=== PATIENT | female | born 1960 | race Caucasian/White ===

== ENCOUNTER 2022-08-26 08:51 | Outpatient (OUT) | payer OTHER, SELFPAY ==
[2022-08-26 09:47] LABS: Basophils Absolute Auto 0.1 10^3/uL (0.0-0.1); Basophils Percent Auto 1.6 % (0.2-2.0); Eosinophils Absolute Auto 0.5 10^3/uL (0.0-0.7); Hemoglobin 13.4 g/dL (12.0-16.0); Immature Granulocytes Abs Auto 0.01 10^3/uL (0.00-0.03); Immature Granulocytes Pct Auto 0.1 % (0.0-0.5); Lymphocytes Absolute Auto 2.9 10^3/uL (1.2-3.8); Lymphocytes Percent Auto 43.2 % (20.5-60.0); Mean Corpuscular HGB Conc 32.7 g/dL (29.9-35.2); Mean Corpuscular Hemoglobin 28.6 pg (26.7-34.0); Mean Corpuscular Volume 87.6 fL (81.0-99.0); Mean Platelet Volume 9.5 fL (9.5-13.5); Monocytes Absolute Auto 0.6 10^3/uL (0.3-0.8); Monocytes Percent Auto 8.8 % (1.7-12.0); Neutrophils Absolute Auto 2.6 10^3/uL (1.4-6.5); Neutrophils Percent Auto 38.3 % (43.0-75.0); Platelet Count 255 10^3/uL (150-450); Red Blood Count 4.68 10^6/uL (4.20-5.40); Red Cell Distribution Width 12.5 % (11.0-15.0); White Blood Count 6.7 10^3/uL (4.0-11.0)
[2022-08-26 09:58] LABS: Estimated Average Glucose 180 mg/dL; Glycohemoglobin A1C 7.9 % (4.5-6.2)
[2022-08-26 13:30] LABS: Alanine Aminotransferase 52 U/L (14-59); Albumin Globulin Ratio 1.3; Albumin Level 3.9 g/dL (3.4-5.0); Alkaline Phosphatase 63 U/L (46-116); Anion Gap 12.6; Aspartate Amino Transferase 25 U/L (15-37); BUN Creatinine Ratio 17.4; Bilirubin Total 0.4 mg/dL (0.2-1.0); Calcium 9.5 mg/dL (8.5-10.1); Carbon Dioxide 27.9 mmol/L (21.0-32.0); Chloride 103 mmol/L (98-107); Cholesterol 235 mg/dL (<=200); Estimated GFR (African America >60 (>=60); Estimated GFR (Non-African Ame 51 (>=60); Globulin 3.1 g/dL; Glucose 188 mg/dL (74-106); HDL Cholesterol 51 mg/dL (40-60); Potassium 5.5 mmol/L (3.5-5.1); Sodium 138 mmol/L (136-145); Triglycerides 268 mg/dL (<=150); VLDL CHOLESTEROL 53.6 mg/dL
[2022-08-26 13:31] LABS: Chol HDL Ratio 4.6; Free T3 1.96 pg/mL (2.18-3.98); Thyroid Stimulating Hormone 1.185 uIU/mL (0.358-3.740)
== END 2022-08-26 08:52 ==
PROVIDERS: PCP Family Medicine; Visit Provider Family Medicine
DX: Z00.00 Encounter for general adult medical examination without abnormal findings (principal)
CPT/HCPCS: 36415; 80053; 80061; 82306; 83036; 83540; 84436; 84443; 84481; 85025

== ENCOUNTER 2023-04-20 14:24 | Outpatient (OUT) | payer BC, SELFPAY ==
--- NOTE | 2023-04-20 14:28 | XR_ITS ---
The [address] [address] Patient Name: JOSIE CABRERA MRN: [id number] date: 1960 Sex: F Assigned Patient Location: [facility] Current Patient Location: [facility] Accession/Order Number: [id number] Exam Date: 04/20/2023 14:37 Report Date: 04/20/2023 20:30 At the request of: MARIA R MARSHALL Procedure: XR hip LT 2V w/ pelvis EXAM: XR hip LT 2V w/ pelvis HISTORY: Left Hip Pain M25.552 COMPARISON: Pelvis included on abdominal x-ray 05/17/2022. TECHNIQUE: AP pelvis, AP frog lateral x-ray left hip. FINDINGS: Normal left hip joint space with minor bony prominence acetabulum superolaterally unchanged. Normal right hip joint space on the AP view. Normal mineralization without focal bone lesion. No fracture. Normal appearing SI joints. Scattered phleboliths in the bony pelvis. XR/XR hip LT 2V w/ pelvis IMPRESSION: Negative for fracture or focal bone lesion. Normal symmetric hip joints unchanged. Electronically authenticated by: CAMMIE LUCAS Date: 04/20/2023 20:30
== END 2023-04-20 14:25 | disposition home or self-care (01) ==
LOC: RAD 14:24
PROVIDERS: PCP Family Medicine; Visit Provider Family Medicine
DX: M25.552 Pain in left hip (principal)
CPT/HCPCS: 73502

== ENCOUNTER 2024-01-26 08:05 | Outpatient (OUT) | payer OTHER, SELFPAY ==
--- OUTSIDE RECORDS SUMMARY | 2024-01-26 08:10 | XMS_ITS | CCD ---
Author Organization [facility] Care Team Providers Care Home Sales Consultant Name Role Phone JOANNA ., DR HECK Admitting Unavailable HOY ., DR HECK Attending Unavailable HOY ., DR HECK Primary Care Unavailable HOY ., DR HECK Consulting Unavailable ZIEBER, DR RYAN Hager Consulting Unavailable HOY ., DR HECK Admitting Unavailable HOY ., DR HECK Attending Unavailable HOY ., DR HECK Primary Care Unavailable HOY ., DR HECK Consulting Unavailable HOY ., DR HECK Admitting Unavailable HOY ., DR HECK Attending Unavailable HOY ., DR HECK Primary Care Unavailable HOY ., DR HECK Consulting Unavailable WEST, DR DALLIN Hammond Consulting Unavailable HOY ., DR HECK Admitting Unavailable HOY ., DR HECK Attending Unavailable HOY ., DR HECK Primary Care Unavailable HOY ., DR HECK Consulting Unavailable VIRAJ AUSTIN Consulting Unavailable MARCELLO, REBEKAH Consulting Unavailable HOY ., DR HECK Admitting Unavailable HOY ., DR HECK Attending Unavailable HOY ., DR HECK Primary Care Unavailable HOY ., DR HECK Consulting Unavailable WEST, DR DALLIN Hammond Consulting Unavailable HOY ., DR HECK Admitting Unavailable HOY ., DR HECK Attending Unavailable HOY ., DR HECK Primary Care Unavailable Maria R Garcia MD Primary Care Provider [phone] RICKY, MARIA R M Primary Care Unavailable NEVIN JOSEPH Attending Unavailable HOY, MARIA R M Primary Care Unavailable MELODIE WILDE Referring Unavailable HOY, MARIA R M Primary Care Unavailable HOY, MARIA R M Referring Unavailable MELODIE WILDE Attending Unavailable MELODIE WILDE Referring Unavailable HOY, MARIA R M Primary Care Unavailable MELODIE WILDE Attending Unavailable MELODIE WILDE Referring Unavailable HOY, MARIA R M Primary Care Unavailable MELODIE WILDE Admitting Unavailable MELODIE WILDE Attending Unavailable Allergies Allergy Classification Reported Allergen(s) Allergy Type Date of Onset Reaction(s) Facility (2 sources) levoFLOXacin Drug Allergy 08-26-2013 [facility] Medications Current Medications Medication Drug Class(es) Dates Sig (Normalized) Sig (Original) acetaminophen 325 mg / HYDROcodone bitartrate 5 mg oral tablet (2 sources) Opioid Agonist Start: 06-07-2022 End: 06-14-2022 take 1-2 tablets by mouth every four hours as needed hydroCODone-acetam inophen 5-325 MG tablet Indications: Post-op pain Take 1-2 tablets by mouth every 4 hours as needed for up to 7 days. 25 tablet 0 06/07/2022 Active amitriptyline hydrochloride 10 mg oral tablet (4 sources) Tricyclic Antidepressant Start: 05-26-2022 Amitriptyline 10 MG tablet atorvastatin 20 mg oral tablet (4 sources) HMG-CoA Reductase Inhibitor Start: 04-25-2022 take 1 tablet by mouth every twenty-four hours Atorvastatin 20 MG tablet Take 1 tablet by mouth every evening. 0 04/25/2022 Active 12 hr buPROPion hydrochloride 200 mg extended release oral tablet (4 sources) Aminoketone Start: 03-29-2022 take 1 tablet by mouth once daily in the morning buPROPion 200 MG tablet SR Take 1 tablet by mouth daily every morning. 0 03/29/2022 Active diclofenac sodium 75 mg delayed release oral tablet (4 sources) Nonsteroidal Anti-inflammatory Drug Start: 05-26-2022 diclofenac EC [address] tablet escitalopram 20 mg oral tablet (4 sources) Serotonin Reuptake Inhibitor Start: 04-25-2022 take 1 tablet by mouth once daily in the morning escitalopram 20 MG tablet Take 1 tablet by mouth daily every morning. 0 04/25/2022 Active fluticasone propionate 0.05 mg/actuat metered dose nasal spray (4 sources) Corticosteroid fluticasone 50 MCG/ACT Suspension nasal spray 1 spray by Nasal route daily. 0 Active lamoTRIgine 25 mg oral tablet (4 sources) Mood Stabilizer, Anti-epileptic Agent Start: 03-29-2022 take 2 tablets by mouth at bedtime lamoTRIgine 25 MG tablet Take 2 tablets by mouth at bedtime. 0 03/29/2022 Active lisinopril 20 mg oral tablet (4 sources) Angiotensin Converting Enzyme Inhibitor Start: 03-25-2022 take 1 tablet by mouth once daily in the morning Lisinopril 20 MG tablet TAKE ONE TABLET BY MOUTH DAILY IN THE MORNING FOR BLOOD PRESSURE 0 03/25/2022 Active 24 hr metFORMIN hydrochloride 500 mg extended release oral tablet (4 sources) Biguanide Start: 05-15-2022 take 2 tablets by mouth once daily metFORMIN-XR 500 MG Tab SR 24 HR Take 2 tablets by mouth daily. 0 05/15/2022 Active temazepam 30 mg oral capsule (4 sources) Benzodiazepine Start: 05-04-2022 take 1 capsule by mouth at bedtime temazepam 30 MG capsule Take 1 capsule by mouth at bedtime. 0 05/04/2022 Active traZODone hydrochloride 100 mg oral tablet (4 sources) Serotonin Reuptake Inhibitor take 1 tablet by mouth once daily traZODone 100 MG tablet Take 1 tablet by mouth Every night. 0 Active Completed/Discontinued Medications Medication Drug Class(es) Dates Sig (Normalized) Sig (Original) 2 ml gentamicin 40 mg/ml injection (1 source) Start: 06-08-2022 End: 06-08-2022 Gentamicin (GARAMYCIN) injection lidocaine 1%/ epinephrine 1:100,000 with sodium bicarbonate 8.4% (10 mL Prepared by Pharmacy) (1 source) Start: 06-08-2022 End: 06-08-2022 lidocaine 1%/ epinephrine 1:100,000 with sodium bicarbonate 8.4% (10 mL Prepared by Pharmacy) lidocaine 1%/epinephrine 1:100,000 with sodium bicarbonate 8.4% (3mL Prepared by Pharmacy) (1 source) Start: 06-08-2022 End: 06-08-2022 lidocaine 1%/epinephrine 1:100,000 with sodium bicarbonate 8.4% (3mL Prepared by Pharmacy) sodium chloride 0.154 meq/ml irrigation solution (1 source) Start: 06-08-2022 End: 06-08-2022 Sodium chloride 0.9 % irrigation Problems Problem Classification Problem Date Documented Date Episodic/Chronic Abdominal hernia (1 source) Diaphragmatic hernia without obstruction or gangrene; 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: [DIAPH HERNIA W/O OBST/GANGRENE] Onset: 05-24-2022 Episodic Acute bronchitis (4 sources) Acute bronchitis, unspecified; 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: [ACUTE BRONCHITIS UNSPECIFIED] Onset: 05-17-2022 Episodic Asthma (1 source) Unspecified asthma with (acute) exacerbation; 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: [UNS ASTHMA W/ACUTE EXACERBATION] Onset: 05-24-2022 Chronic Cardiac dysrhythmias (1 source) Tachycardia, unspecified; 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: [TACHYCARDIA UNSPECIFIED] Onset: 05-24-2022 Episodic Diabetes mellitus with complications (1 source) Type 2 diabetes mellitus with hyperglycemia; 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: [TYPE 2 DM W/HYPERGLYCEMIA] Onset: 05-24-2022 Chronic E Codes: Adverse effects of medical drugs (1 source) Adverse effect of glucocorticoids and synthetic analogues, initial encounter; 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: [ADVRS EFF GLUCOCORT SYN ANALOG INIT] Onset: 05-24-2022 Episodic Essential hypertension (1 source) Essential (primary) hypertension; 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: [ESSENTIAL PRIMARY HYPERTENSION] Onset: 05-24-2022 Chronic Fluid and electrolyte disorders (1 source) Dehydration; 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: [DEHYDRATION] Onset: 05-24-2022 Episodic Nonmalignant breast conditions (1 source) Diffuse cystic mastopathy of right breast; 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: [DIFFUSE CYSTIC MASTOPATHY RT BREAST] Onset: 08-04-2021 Chronic Nonmalignant breast conditions (10 sources) Unspecified lump in the right breast, unspecified quadrant; 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: [Unspecified lump in the right breast, upper inner quadrant] Onset: 07-22-2021 Episodic Other aftercare (1 source) custodial (current) use of aspirin; 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: [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] Onset: 05-24-2022 Episodic Other aftercare (1 source) custodial (current) use of oral hypoglycemic drugs; 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: [SALES AND MERCHANDISING ASSOCIATE USE ORAL HYPOGLYCEMIC DX] Onset: 05-24-2022 Episodic Other lower respiratory disease (1 source) Hypoxemia; 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: [HYPOXEMIA] Onset: 05-24-2022 Episodic Other lower respiratory disease (1 source) Shortness of breath; 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: [SHORTNESS OF BREATH] Onset: 05-24-2022 Episodic Other nervous system disorders (1 source) Postoperative pain ; 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: [Other acute postprocedural pain] Episodic Other nervous system disorders (2 sources) Other acute postprocedural pain; 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: [Other acute postprocedural pain] Onset: 06-08-2022 Episodic Other skin disorders (1 source) Lump on finger; 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: [Localized swelling, mass and lump, right upper limb] Episodic Other skin disorders (2 sources) Localized swelling, mass and lump, right upper limb; 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: [Localized swelling, mass and lump, right upper limb] Onset: 05-30-2022 Episodic Residual codes; unclassified (1 source) Sleep apnea, unspecified; 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: [SLEEP APNEA UNSPECIFIED] Onset: 05-24-2022 Chronic Residual codes; unclassified (2 sources) Other specified postprocedural states; 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: [Other specified postprocedural states] Onset: 06-22-2022 Episodic Unclassified (1 source) CONTACT W/AND (SUSP) EXPOS COVID-19; 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: [CONTACT W/AND (SUSP) EXPOS COVID-19] Onset: 05-24-2022 Unclassified (1 source) Unspecified lump in the right breast, overlapping quadrants; 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: [UNS LUMP RT BREAST OVRLPNG QUADRNTS] Onset: 03-08-2022 Results Test Name Value Interpretation Reference Range Facil ity CBC AUTO DIFFon 05-19-2022 BASO # 0.0 103/ul Normal 0.0-0.1 [facility] Comment on above: Performed By: #### P OCGLUC #### [facility] [address] [address] [address] Nan Jeffers Basophils/100 WBC (Bld) 0.2 % Normal 0.2-2.0 [facility] Comment on above: Performed By: #### P OCGLUC #### [facility] [address] [address] [address] Nan Jeffers EO # 0.0 103/ul Normal 0.0-0.7 [facility] Comment on above: Performed By: #### P OCGLUC #### [facility] [address] [address] [address] Nan Jeffers Eosinophils/100 WBC (Bld) 0.0 % Critically low 0.9-7.0 [facility] Comment on above: Performed By: #### P OCGLUC #### [facility] [address] [address] [address] Nan Jeffers Erythrocyte distribution width (RBC) [Ratio] 12.9 % Normal 11.0-15.0 [facility] Comment on above: Performed By: #### P OCGLUC #### [facility] [address] [address] [address] Nan Jeffers Hematocrit (Bld) [Volume fraction] 33.1 % Critically low 36.0-48.0 [facility] Comment on above: Performed By: #### P OCGLUC #### [facility] [address] [address] [address] Nan Jeffers Hemoglobin (Bld) [Mass/Vol] 10.8 g/dL Critically low 12.0-16.0 [facility] Comment on above: Performed By: #### P OCGLUC #### [facility] [address] [address] [address] Nan Jeffers IG # 0.22 10e3/ul Critically high 0.00-0.03 [facility] Comment on above: Performed By: #### P OCGLUC #### [facility] [address] [address] [address] Nan Jeffers IG % 1.6 % Critically high 0.0-0.5 [facility] Comment on above: Performed By: #### P OCGLUC #### [facility] [address] [address] [address] Nan Jeffers LYMPH # 2.1 103/ul Normal 1.2-3.8 [facility] Comment on above: Performed By: #### P OCGLUC #### [facility] [address] [address] [address] Nan Jeffers Lymphocytes/100 WBC (Bld) 15.3 % Critically low 20.5-60.0 [facility] Comment on above: Performed By: #### P OCGLUC #### [facility] [address] [address] [address] Nan Jeffers MANUAL DIFF REQ NO Normal [facility] Comment on above: Performed By: #### P OCGLUC #### [facility] [address] [place] [address] Dr. Nan Jeffers MCH (RBC) [Entitic mass] 28.1 pg Normal 26.7-34.0 [facility] Comment on above: Performed By: #### P OCGLUC #### [facility] [address] [address] [address] Nan Jeffers MCHC (RBC) [Mass/Vol] 32.6 g/dL Normal 29.9-35.2 [facility] Comment on above: Performed By: #### P OCGLUC #### [facility] [address] [address] [address] Nan Jeffers MCV (RBC) [Entitic vol] 86.0 fL Normal 81.0-99.0 [facility] Comment on above: Performed By: #### P OCGLUC #### [facility] [address] [address] [address] Nan Jeffers MONO # 1.2 103/ul Critically high 0.3-0.8 [facility] Comment on above: Performed By: #### P OCGLUC #### [facility] [address] [place] [address] Dr. Nan Jeffers Monocytes/100 WBC (Bld) 8.8 % Normal 1.7-12.0 [facility] Comment on above: Performed By: #### P OCGLUC #### [facility] [address] [address] [address] Nan Jeffers NEUT # 10.2 103/ul Critically high 1.4-6.5 [facility] Comment on above: Performed By: #### P OCGLUC #### [facility] [address] [address] [address] Nan Jeffers Neutrophils/100 WBC (Bld) 74.1 % Normal 43.0-75.0 [facility] Comment on above: Performed By: #### P OCGLUC #### [facility] [address] [address] [address] Nan Jeffers Platelet mean volume (Bld) [Entitic vol] 9.6 fL Normal 9.5-13.5 [facility] Comment on above: Performed By: #### P OCGLUC #### [facility] [address] [address] [address] Nan Jeffers PLT 254 103/ul Normal 150-450 [facility] Comment on above: Performed By: #### P OCGLUC #### [facility] [address] [address] [address] Nan Jeffers RBC 3.85 106/ul Critically low 4.20-5.40 [facility] Comment on above: Performed By: #### P OCGLUC #### [facility] [address] [address] [address] Nan Jeffers WBC 13.8 103/ul Critically high 4.0-11.0 [facility] Comment on above: Performed By: #### P OCGLUC #### [facility] [address] [address] [address] Nan Jeffers POINT OF CARE GLUCOSEon Glucose [Mass/Vol] 317 mg/dL Critically high 74-106 [facility] Comment on above: Performed By: #### P OCGLUC #### [facility] [address] [address] [address] Nan Jeffers Glucose [Mass/Vol] 338 mg/dL Critically high 74-106 [facility] Comment on above: Performed By: #### P OCGLUC #### [facility] [address] [address] [address] Nan Jeffers PROF 14(COMP METB)on 023 Albumin [Mass/Vol] 3.2 g/dL Critically low 3.4-5.0 [facility] Comment on above: Performed By: #### P OCGLUC #### [facility] [address] [address] [address] Nan Jeffers Albumin/Globulin [Mass ratio] 1.3 {ratio} Normal [facility] Comment on above: Performed By: #### P OCGLUC #### [facility] [address] [address] [address] Nan Jeffers ALP [Catalytic activity/Vol] 56 U/L Normal 46-116 [facility] Comment on above: Performed By: #### P OCGLUC #### [facility] [address] [address] [address] Nan Jeffers ALT [Catalytic activity/Vol] 32 U/L Normal 14-59 [facility] Comment on above: Performed By: #### P OCGLUC #### [facility] [address] [address] [address] Nan Jeffers Anion gap [Moles/Vol] 14.9 mmol/L Normal [facility] Comment on above: Performed By: #### P OCGLUC #### [facility] [address] [address] [address] Nan Jeffers AST [Catalytic activity/Vol] 26 U/L Normal 15-37 [facility] Comment on above: Performed By: #### P OCGLUC #### [facility] [address] [address] [address] Nan Jeffers Bilirubin [Mass/Vol] 0.2 mg/dL Normal 0.2-1.0 [facility] Comment on above: Performed By: #### P OCGLUC #### [facility] [address] [address] [address] Nan Jeffers Calcium [Mass/Vol] 8.9 mg/dL Normal 8.5-10.1 [facility] Comment on above: Performed By: #### P OCGLUC #### [facility] [address] [address] [address] Nan Jeffers Chloride [Moles/Vol] 103 mmol/L Normal 98-107 [facility] Comment on above: Performed By: #### P OCGLUC #### [facility] [address] [address] [address] Nan Jeffers CO2 [Moles/Vol] 24.0 mmol/L Normal 21.0-32.0 [facility] Comment on above: Performed By: #### P OCGLUC #### [facility] [address] [address] [address] Nan Jeffers Creatinine [Mass/Vol] 0.84 mg/dL Normal 0.55-1.02 [facility] Comment on above: Performed By: #### P OCGLUC #### [facility] [address] [address] [address] Nan Jeffers EGFR-AF DJIBOUTIAN >60 Normal >=60 [facility] Comment on above: Performed By: #### P OCGLUC #### [facility] [address] [address] [address] Nan Jeffers EGFR-NON AF DJIBOUTIAN >60 Normal >=60 [facility] Comment on above: Performed By: #### P OCGLUC #### [facility] [address] [address] [address] Nan Jeffers Globulin (S) [Mass/Vol] 2.4 g/dL Normal [facility] Comment on above: Performed By: #### P OCGLUC #### [facility] [address] [address] [address] Nan Jeffers Glucose [Mass/Vol] 291 mg/dL Critically high 74-106 [facility] Comment on above: Performed By: #### P OCGLUC #### [facility] [address] [address] [address] Nan Jeffers Potassium [Moles/Vol] 3.9 mmol/L Normal 3.5-5.1 [facility] Comment on above: Performed By: #### P OCGLUC #### [facility] [address] [address] [address] Nan Jeffers Protein [Mass/Vol] 5.6 g/dL Critically low 6.4-8.2 [facility] Comment on above: Performed By: #### P OCGLUC #### [facility] [address] [address] [address] Nan Jeffers Sodium [Moles/Vol] 138 mmol/L Normal 136-145 [facility] Comment on above: Performed By: #### P OCGLUC #### [facility] [address] [address] [address] Nan Jeffers Urea nitrogen [Mass/Vol] 18.0 mg/dL Normal 7.0-18.0 [facility] Comment on above: Performed By: #### P OCGLUC #### [facility] [address] [address] [address] Nan Jeffers Urea nitrogen/Creatinine [Mass ratio] 21.4 mg/mg Normal [facility] Comment on above: Performed By: #### P OCGLUC #### [facility] [address] [address] [address] Nan Jeffers CBC AUTO DIFFon 05-18-2022 BASO # 0.0 103/ul Normal 0.0-0.1 [facility] Comment on above: Performed By: #### C BC #### [facility] [address] [address] [address] Nan Jeffers Basophils/100 WBC (Bld) 0.3 % Normal 0.2-2.0 [facility] Comment on above: Performed By: #### C BC #### [facility] [address] [place] [address] Dr. Nan Jeffers EO # 0.0 103/ul Normal 0.0-0.7 [facility] Comment on above: Performed By: #### C BC #### [facility] [address] [place] [address] Dr. Nan Jeffers Eosinophils/100 WBC (Bld) 0.0 % Critically low 0.9-7.0 [facility] Comment on above: Performed By: #### C BC #### [facility] [address] [place] [address] Dr. Nan Jeffers Erythrocyte distribution width (RBC) [Ratio] 12.4 % Normal 11.0-15.0 [facility] Comment on above: Performed By: #### C BC #### [facility] [address] [place] [address] Dr. Nan Jeffers Hematocrit (Bld) [Volume fraction] 34.8 % Critically low 36.0-48.0 [facility] Comment on above: Performed By: #### C BC #### [facility] [address] [place] [address] Dr. Nan Jeffers Hemoglobin (Bld) [Mass/Vol] 11.3 g/dL Critically low 12.0-16.0 [facility] Comment on above: Performed By: #### C BC #### [facility] [address] [place] [address] Dr. Nan Jeffers IG # 0.08 10e3/ul Critically high 0.00-0.03 [facility] Comment on above: Performed By: #### C BC #### [facility] [address] [place] [address] Dr. Nan Jeffers IG % 1.1 % Critically high 0.0-0.5 [facility] Comment on above: Performed By: #### C BC #### [facility] [address] [place] [address] Dr. Nan Jeffers LYMPH # 1.5 103/ul Normal 1.2-3.8 [facility] Comment on above: Performed By: #### C BC #### [facility] [address] [place] [address] Dr. Nan Jeffers Lymphocytes/100 WBC (Bld) 19.9 % Critically low 20.5-60.0 [facility] Comment on above: Performed By: #### C BC #### [facility] [address] [place] [address] Dr. Nan Jeffers MANUAL DIFF REQ NO Normal [facility] Comment on above: Performed By: #### C BC #### [facility] [address] [place] [address] Dr. Nan Jeffers MCH (RBC) [Entitic mass] 28.2 pg Normal 26.7-34.0 [facility] Comment on above: Performed By: #### C BC #### [facility] [address] [place] [address] Dr. Nan Jeffers MCHC (RBC) [Mass/Vol] 32.5 g/dL Normal 29.9-35.2 [facility] Comment on above: Performed By: #### C BC #### [facility] [address] [place] [address] Dr. Nan Jeffers MCV (RBC) [Entitic vol] 86.8 fL Normal 81.0-99.0 [facility] Comment on above: Performed By: #### C BC #### [facility] [address] [place] [address] Dr. Nan Jeffers MONO # 0.2 103/ul Critically low 0.3-0.8 [facility] Comment on above: Performed By: #### C BC #### [facility] [address] [place] [address] Dr. Nan Jeffers Monocytes/100 WBC (Bld) 3.2 % Normal 1.7-12.0 [facility] Comment on above: Performed By: #### C BC #### [facility] [address] [place] [address] Dr. Nan Jeffers NEUT # 5.6 103/ul Normal 1.4-6.5 [facility] Comment on above: Performed By: #### C BC #### [facility] [address] [place] [address] Dr. Nan Jeffers Neutrophils/100 WBC (Bld) 75.5 % Critically high 43.0-75.0 [facility] Comment on above: Performed By: #### C BC #### [facility] [address] [place] [address] Dr. Nan Jeffers Platelet mean volume (Bld) [Entitic vol] 9.7 fL Normal 9.5-13.5 [facility] Comment on above: Performed By: #### C BC #### [facility] [address] [place] [address] Dr. Nan Jeffers PLT 224 103/ul Normal 150-450 [facility] Comment on above: Performed By: #### C BC #### [facility] [address] [place] [address] Dr. Nan Jeffers RBC 4.01 106/ul Critically low 4.20-5.[address] [facility] Comment on above: Performed By: #### C BC #### [facility] [address] [place] [address] Dr. Nan Jeffers WBC 7.4 103/ul Normal 4.0-11.0 [facility] Comment on above: Performed By: #### C BC #### [facility] [address] [place], [place] [id number] Dr. Nan Jeffers CT CHEST WO CONon 05-18-2022 CT CHEST WO CON EXAMINATION: CT CHES T WO CON 05/18/2022 COMPARISON STUDY: Acute abdominal series 05/17/2022. HISTORY: SHORTNESS OF BREATH TECHNIQUE: 3 mm sections were obtained from the thoracic inlet through the diaphragm without the use of contrast. Coronal and sagittal reconstructed images were obtained. Dose reduction techniques were achieved by using automated exposure control and/or adjustment of mA and/or kV according to patient size and/or use of iterative reconstruction technique. FINDINGS: Background diffuse hepatic steatosis suggested. The gallbladder is surgically absent. Upper abdominal contents demonstrate no acute abnormality. Mild atherosclerotic change of the aorta and its branches are noted without aneurysm. Coronary artery calcifications are faintly suggested. Heart size is normal. No significantly enlarged adenopathy noted. Mild chronic symmetric biapical fibrotic changes are present. Minor bibasilar atelectatic/fibrotic type changes are also noted. No edema, failure, pneumonia, pneumothorax, or suspicious appearing mass. There is subtle peripherally located tree-in-bud opacities involving the posterior lateral aspect of the right lower lobe, images 66-69 of series 4. Early mild lower lobe cylindrical bronchiectatic type changes involving the lower lobes may be present. Multilevel cervical, thoracic, and upper lumbar spondylitic/facet arthritic changes noted. No acute osseous abnormality. Remote trauma to the manubrium suggested on the sagittal images. IMPRESSION: 1. Peripherally located tree-in-bud opacities posterior laterally involving the right lower lobe may represent infectious/inflammato ry bronchiolitis. Early mild cylindrical bronchiectatic changes involving the lower lobes are noted. 2. Minor biapical and bibasilar atelectatic/fibrotic type changes without overt edema, failure, or pneumonia. 3. Hepatic steatosis. Cholecystectomy. Electronically authenticated by: REBEKAH HAMILTONH Date: 2022-05-18 11:21 Normal [facility] POINT OF CARE GLUCOSEon 03-0 Glucose [Mass/Vol] 206 mg/dL Critically high 74-106 [facility] Comment on above: Performed By: #### P OCGLUC #### [facility] [address], [place] [address] Dr. Nan Jeffers Glucose [Mass/Vol] 262 mg/dL Critically high 74-106 [facility] Comment on above: Performed By: #### P OCGLUC #### [facility] [address] [place], [place] [address] Dr. Nan Jeffers Glucose [Mass/Vol] 383 mg/dL Critically high 74-106 [facility] Comment on above: Performed By: #### P OCGLUC #### [facility] [address] [place] [address] [address] Nan Jeffers PROF 14(COMP METB)on 023 Albumin [Mass/Vol] 3.4 g/dL Normal 3.4-5.0 [facility] Comment on above: Performed By: #### C MP #### [facility] [address] [place] [address] Dr. Nan Jeffers Albumin/Globulin [Mass ratio] 1.2 {ratio} Normal [facility] Comment on above: Performed By: #### C MP #### [facility] [address] [place] [address] Dr. Nan Jeffers ALP [Catalytic activity/Vol] 66 U/L Normal 46-116 [facility] Comment on above: Performed By: #### C MP #### [facility] [address] [place] [address] Dr. Nan Jeffers ALT [Catalytic activity/Vol] 34 U/L Normal 14-59 [facility] Comment on above: Performed By: #### C MP #### [facility] [address] [place] [address] Dr. Nan Jeffers Anion gap [Moles/Vol] 17.8 mmol/L Normal [facility] Comment on above: Performed By: #### C MP #### [facility] [address] [place] [address] Dr. Nan Jeffers AST [Catalytic activity/Vol] 19 U/L Normal 15-37 [facility] Comment on above: Performed By: #### C MP #### [facility] [address] [place] [address] Dr. Nan Jeffers Bilirubin [Mass/Vol] 0.2 mg/dL Normal 0.2-1.0 [facility] Comment on above: Performed By: #### C MP #### [facility] [address] [place] [address] Dr. Nan Jeffers Calcium [Mass/Vol] 8.9 mg/dL Normal 8.5-10.[address] [facility] Comment on above: Performed By: #### C MP #### [facility] [address] [place] [address] [address] Nan Jeffers Chloride [Moles/Vol] 101 mmol/L Normal 98-107 [facility] Comment on above: Performed By: #### C MP #### [facility] [address] [place] [address] [address] Nan Jeffers CO2 [Moles/Vol] 22.1 mmol/L Normal 21.0-32.0 [facility] Comment on above: Performed By: #### C MP #### [facility] [address] [place] [address] [address] Nan Jeffers Creatinine [Mass/Vol] 1.26 mg/dL Critically high 0.55-1.02 [facility] Comment on above: Performed By: #### C MP #### [facility] [address] [place] [address] [address] Nan Jeffers EGFR-AF DJIBOUTIAN 52 mL/min/1.73m2 Critically low >=60 [facility] Comment on above: Performed By: #### C MP #### [facility] [address] [place] [address] [address] Nna Jeffers EGFR-NON AF DJIBOUTIAN 43 mL/min/1.73m2 Critically low >=60 [facility] Comment on above: Performed By: #### C MP #### [facility] [address] [place] [address] [address] Nna Jeffers Globulin (S) [Mass/Vol] 2.9 g/dL Normal [facility] Comment on above: Performed By: #### C MP #### [facility] [address] [place] [address] [address] Nan Jeffers Glucose [Mass/Vol] 385 mg/dL Critically high 74-106 [facility] Comment on above: Performed By: #### C MP #### [facility] [address] [place] [address] [address] Nan Jeffers Potassium [Moles/Vol] 3.9 mmol/L Normal 3.5-5.1 [facility] Comment on above: Performed By: #### C MP #### [facility] [address] [place] [address] [address] Nan Jeffers Protein [Mass/Vol] 6.3 g/dL Critically low 6.4-8.2 [facility] Comment on above: Performed By: #### C MP #### [facility] [address] [address] [address] Nan Jeffers Sodium [Moles/Vol] 137 mmol/L Normal 136-145 [facility] Comment on above: Performed By: #### C MP #### [facility] [address] [place] [address] Dr. Nan Jeffers Urea nitrogen [Mass/Vol] 14.0 mg/dL Normal 7.0-18.0 [facility] Comment on above: Performed By: #### C MP #### [facility] [address] [place] [address] Dr. Nan Jeffers Urea nitrogen/Creatinine [Mass ratio] 11.1 mg/mg Normal [facility] Comment on above: Performed By: #### C MP #### [facility] [address] [place] [address] Dr. Nan Jeffers BNPon 05-17-2022 Natriuretic peptide B (Bld) [Mass/Vol] 58.0 pg/mL Normal <=900.0 [facility] Comment on above: Performed By: #### P OCGLUC #### [facility] [address] [place] [address] Dr. Nan Jeffers CARDIAC CHIN ADMITon 023 CK [Catalytic activity/Vol] 244 U/L Critically high 26-192 [facility] Comment on above: Performed By: #### P OCGLUC #### [facility] [address] [place] [address] Dr. Nan Jeffers CK.MB [Mass/Vol] 0.96 ng/mL Normal <=3.60 [facility] Comment on above: Performed By: #### P OCGLUC #### [facility] [address] [place] [address] Dr. Nan Jeffers HSTROP 4.1 pg/mL Normal 4.0-51.3 [facility] Comment on above: Result Comment: CUT- OFF POINTS HAVE BEEN ESTABLISHED BASED ON THE FOURTH UNIVERSAL DEFINITIONS OF MYOCARDIAL INFARCTION. THE UPPER REFERENCE LIMIT (URL) OF TROPONIN, DEFINED THE 99TH PERCENTILE OF cTnI DISTRIBUTION IN A REFERENCE POPULATION, HAS BEEN CONFIRMED THE DECISION THRESHOLD FOR [place] DIAGNOSIS. Performed By: #### P OCGLUC #### [facility] [address] [place] [address] [address] Nan Jeffers LACIE 137 ng/mL Critically high 9-[address] [facility] Comment on above: Performed By: #### P OCGLUC #### [facility] [address] [place] [address] [address] Nan Jeffers CULTURE URINEon 05-17-2022 CULTURE URINE Culture Observations : NO GROWTH. Normal [facility] Comment on above: Performed By: #### P OCGLUC #### [facility] [address] [place] [address] Dr. Nan Jeffers Covid-19 PCR (CVDTB)on SARS-CoV-2 (COVID-19) RNA JACQUES+probe Ql (Unsp spec) Not detected Normal NOT DETECTED [facility] Comment on above: Result Comment: When diagnostic testing is negative, the possibility of a false negative should be considered in the context of a patient's recent exposures and the presence of clinical signs and symptoms consistent with SARS-CoV-2. This test is not yet approved or cleared by the [place] FDA. When there are no FDA-approved or cleared tests available, and other criteria are met, FDA can make tests available under an emergency access mechanism called an Emergency Use Authorization (EUA). The EUA for this test is supported by the Intellectual Property Lawyer of Health and Human Service's declaration that circumstances exist to justify the emergency use of in vitro diagnostics for the detection and/or diagnosis of the virus that causes COVID-19. This EUA will remain in effect for the duration of the COVID-19 declaration justifying emergency of IVDs, unless it is terminated or revoked by the FDA (after which the test may no longer be used). Performed By: #### P OCGLUC #### [facility] [address] [place] [address] Dr. Nan Jeffers D-DIMERon 05-17-2022 D-DIMER 0.60 mg/L FEU Critically high <=0.59 [facility] Comment on above: Performed By: #### D DIM #### [facility] [address] [place] [address] Dr. Nan Jeffers D-DIMER COMMENTS SEE BELOW Normal [facility] Comment on above: Result Comment: Incr eases in D-Dimer concentration observed with thromboembolic events can be variable due to localization, size, and age of the thrombus. Therefore, a thromboembolic event cannot be diagnosed with certainty on the basis of the reference range. D-Dimers may also be elevated for a variety of disorders including: advanced age, , coronary disease, cancer, liver disease, infection, inflammation, hematoma, DIC, trauma, post-surgery, diabetes, thrombolytic or anticoagulant therapy, stress, and generalized hospitalization. Performed By: #### D DIM #### [facility] [address] [place] [address] Dr. Nan Jeffers LACTATE/LACTIC ACIDon 2022 Lactate [Moles/Vol] 1.7 mmol/L Normal 0.4-1.9 [facility] Comment on above: Performed By: #### P OCGLUC #### [facility] [address] [place] [address] Dr. Nan Jeffers LIPASEon 05-17-2022 Lipase [Catalytic activity/Vol] 82.0 U/L Normal 73.0-393.0 [facility] Comment on above: Performed By: #### P OCGLUC #### [facility] [address] [place] [address] Dr. Nan Jeffers POINT OF CARE GLUCOSEon Glucose [Mass/Vol] 337 mg/dL Critically high 74-106 [facility] Comment on above: Performed By: #### P OCGLUC #### [facility] [address] [place] [address] Dr. Nan Jeffers Glucose [Mass/Vol] 281 mg/dL Critically high 74-106 [facility] Comment on above: Performed By: #### P OCGLUC #### [facility] [address] [place] [address] Dr. Nan Jeffers PROF 14(COMP METB)on 023 Albumin [Mass/Vol] 3.4 g/dL Normal 3.4-5.0 [facility] Comment on above: Performed By: #### P OCGLUC #### [facility] [address] [place] [address] Dr. Nan Jeffers Albumin/Globulin [Mass ratio] 1.1 {ratio} Normal [facility] Comment on above: Performed By: #### P OCGLUC #### [facility] [address] [place] [address] [address] Nan Jeffers ALP [Catalytic activity/Vol] 64 U/L Normal 46-116 [facility] Comment on above: Performed By: #### P OCGLUC #### [facility] [address] [place] [address] Dr. Nan Jeffers ALT [Catalytic activity/Vol] 40 U/L Normal 14-59 [facility] Comment on above: Performed By: #### P OCGLUC #### [facility] [address] [place] [address] Dr. Nan Jeffers Anion gap [Moles/Vol] 10.1 mmol/L Normal [facility] Comment on above: Performed By: #### P OCGLUC #### [facility] [address] [place] [address] Dr. Nan Jeffers AST [Catalytic activity/Vol] 20 U/L Normal 15-37 [facility] Comment on above: Performed By: #### P OCGLUC #### [facility] [address] [place] [address] Dr. Nan Jeffers Bilirubin [Mass/Vol] 0.4 mg/dL Normal 0.2-1.0 [facility] Comment on above: Performed By: #### P OCGLUC #### [facility] [address] [place] [address] Dr. Nan Jeffers Calcium [Mass/Vol] 9.2 mg/dL Normal 8.5-10.[address] [facility] Comment on above: Performed By: #### P OCGLUC #### [facility] [address] [place] [address] Dr. Nan Jeffers Chloride [Moles/Vol] 104 mmol/L Normal 98-107 [facility] Comment on above: Performed By: #### P OCGLUC #### [facility] [address] [place] [address] [address] Nan Jeffers CO2 [Moles/Vol] 31.8 mmol/L Normal 21.0-32.0 [facility] Comment on above: Performed By: #### P OCGLUC #### [facility] [address] [place] [address] [address] Nan Jeffers Creatinine [Mass/Vol] 0.96 mg/dL Normal 0.55-1.02 [facility] Comment on above: Performed By: #### P OCGLUC #### [facility] [address] [place] [address] [address] Nan Jeffers EGFR-AF DJIBOUTIAN >60 Normal >=60 [facility] Comment on above: Performed By: #### P OCGLUC #### [facility] [address] [place] [address] [address] Nan Jeffers EGFR-NON AF DJIBOUTIAN 59 mL/min/1.73m2 Critically low >=60 [facility] Comment on above: Performed By: #### P OCGLUC #### [facility] [address] [place] [address] [address] Nan Jeffers Globulin (S) [Mass/Vol] 3.1 g/dL Normal [facility] Comment on above: Performed By: #### P OCGLUC #### [facility] [address] [place] [address] [address] Nan Jeffers Glucose [Mass/Vol] 189 mg/dL Critically high 74-106 [facility] Comment on above: Performed By: #### P OCGLUC #### [facility] [address] [place] [address] [address] Nan Jeffers Potassium [Moles/Vol] 4.9 mmol/L Normal 3.5-5.1 [facility] Comment on above: Performed By: #### P OCGLUC #### [facility] [address] [place] [address] [address] aNn Jeffers Protein [Mass/Vol] 6.5 g/dL Normal 6.4-8.2 [facility] Comment on above: Performed By: #### P OCGLUC #### [facility] [address] [place] [address] Dr. Nan Jeffers Sodium [Moles/Vol] 141 mmol/L Normal 136-145 [facility] Comment on above: Performed By: #### P OCGLUC #### [facility] [address] [place] [address] Dr. Nan Jeffers Urea nitrogen [Mass/Vol] 12.0 mg/dL Normal 7.0-18.0 [facility] Comment on above: Performed By: #### P OCGLUC #### [facility] [address] [place] [address] Dr. Nan Jeffers Urea nitrogen/Creatinine [Mass ratio] 12.5 mg/mg Normal [facility] Comment on above: Performed By: #### P OCGLUC #### [facility] [address] [place] [address] Dr. Nan Jeffers UA RANDOM W/MICROSCOPICon BACTERIA NONE SEEN Normal NONE SEEN [facility] Comment on above: Performed By: #### P OCGLUC #### [facility] [address] [place] [address] Dr. Nan Jeffers Bilirubin Ql (U) Negative Normal NEGATIVE [facility] Comment on above: Performed By: #### P OCGLUC #### [facility] [address] [place] [address] Dr. Nan Jeffers CAST NONE SEEN Normal NONE SEEN [facility] Comment on above: Performed By: #### P OCGLUC #### [facility] [address] [place] [address] Dr. Nan Jeffers Clarity (U) CLEAR Normal CLEAR [facility] Comment on above: Performed By: #### P OCGLUC #### [facility] [address] [place] [address] Dr. Nan Jeffers Color (U) LT. YELLOW Normal YELLOW [facility] Comment on above: Performed By: #### P OCGLUC #### [facility] [address] [place] [address] Dr. Nan Jeffers Crystals LM Nom (Urine sed) NONE SEEN Normal NONE SEEN [facility] Comment on above: Performed By: #### P OCGLUC #### [facility] [address] [place] [address] [address] Nan Jeffers Epithelial cells LM Ql (Urine sed) RARE Normal NONE SEEN /RARE [facility] Comment on above: Performed By: #### P OCGLUC #### [facility] [address] [place] [address] [address] Nan Jeffers Glucose Ql (U) 500 mg/dl Abnormal NEGATIVE [facility] Comment on above: Performed By: #### P OCGLUC #### [facility] [address] [place] [address] [address] Nan Jeffers Hemoglobin Ql (U) Negative Normal NEGATIVE [facility] Comment on above: Performed By: #### P OCGLUC #### [facility] [address] [place] [address] Dr. Nan Jeffers Ketones Ql (U) Negative Normal NEGATIVE [facility] Comment on above: Performed By: #### P OCGLUC #### [facility] [address] [place] [address] [address] Nan Jeffers LEUKOCYTES Negative Normal NEGATIVE [facility] Comment on above: Performed By: #### P OCGLUC #### [facility] [address] [place] [address] [address] Nan Jeffers MUCOUS NONE SEEN Normal NONE SEEN [facility] Comment on above: Performed By: #### P OCGLUC #### [facility] [address] [place] [address] [address] Nan Jeffers Nitrite Ql (U) Negative Normal NEGATIVE [facility] Comment on above: Performed By: #### P OCGLUC #### [facility] [address] [place] [address] [address] Nan Jeffers pH (U) 5.5 [pH] Normal 5-9 [facility] Comment on above: Performed By: #### P OCGLUC #### [facility] [address] [place] [address] [address] Nan Jeffers RBC 0-2 Normal 0-2 [facility] Comment on above: Performed By: #### P OCGLUC #### [facility] [address] [place] [address] [address] Nan Jeffers SPEC GRAVITY <=1.005 Abnormal 1.005-<=1.[address] [facility] Comment on above: Performed By: #### P OCGLUC #### [facility] [address] [place] [address] [address] Nan Jeffers UA PROTEIN Negative Normal NEGATIVE/ TRACE [facility] Comment on above: Performed By: #### P OCGLUC #### [facility] [address] [place] [address] [address] Nan Jeffers Urobilinogen Qn (U) 0.2 {Jenifer'U}/dL Normal 0.2 - 1. 0 [facility] Comment on above: Performed By: #### P OCGLUC #### [facility] [address] [place] [address] Dr. Nan Jeffers WBC NONE SEEN Normal NONE SEEN [facility] Comment on above: Performed By: #### P OCGLUC #### [facility] [address] [place] [address] [address] Nan Jeffers XR ABD FLAT UP_PA Atul 05-17 XR ABD FLAT UP_PA CH EXAM: XR ABD FLAT UP_PA CH HISTORY: CHEST PAIN, UNSPECIFIED COMPARISON: None. TECHNIQUE: PA chest and 2 views of the abdomen. FINDINGS: Atherosclerotic calcification of the thoracic aorta. Cardiac size and pulmonary vascularity are within normal limits. The lungs and the costophrenic angles are clear. Moderate stool burden throughout the colon. No significantly dilated small or large bowel. Prior cholecystectomy. Calcified phleboliths within the pelvis. IMPRESSION: 1. No acute cardiopulmonary disease. 2. No evidence of bowel obstruction, significant ileus, or free intraperitoneal gas. Electronically authenticated by: VIRAJ AUSTIN Date: 2022-05-17 14:45 Normal [facility] Covid-19 PCR (CVDTB)on 04-20 SARS-CoV-2 (COVID-19) RNA JACQUES+probe Ql (Unsp spec) Not detected Normal NOT DETECTED [facility] Comment on above: Result Comment: When diagnostic testing is negative, the possibility of a false negative should be considered in the context of a patient's recent exposures and the presence of clinical signs and symptoms consistent with SARS-CoV-2. This test is not yet approved or cleared by the [place] FDA. When there are no FDA-approved or cleared tests available, and other criteria are met, FDA can make tests available under an emergency access mechanism called an Emergency Use Authorization (EUA). The EUA for this test is supported by the Intellectual Property Lawyer of Health and Human Service's declaration that circumstances exist to justify the emergency use of in vitro diagnostics for the detection and/or diagnosis of the virus that causes COVID-19. This EUA will remain in effect for the duration of the COVID-19 declaration justifying emergency of IVDs, unless it is terminated or revoked by the FDA (after which the test may no longer be used). Performed By: #### C VDTB #### [facility] [address] [place] [address] Dr. Nan Jeffers MG MAMM DX 3D RT CADon 03-03 MG MAMM DX 3D RT CAD Patient: JOSIE VELIZ I. Exam Date: 03/03/2022 : 1960 Gender:F Ordering : DR MARIA R GARCIA . Admission #: [id number] Family : Order #: [id number] CLICK HERE TO VIEW EXAM RADIOLOGY REPORT PROCEDURE: MAMMOGRAM DIAGNOSTIC 3D RIGHT CAD, 03/03/2022, 12:59 ULTRASOUND BREAST RIGHT LIMITED, 03/03/2022, 13:30 COMPARISON: US VAC ASST BX BRST RT W CLIP, 07/29/2021. MAMMO POST BIOPSY RIGHT, 07/29/2021. INDICATIONS: Lump in right breast Calculator Name NCI Breast Cancer Risk Assessment Tool 5 Year Breast Cancer Risk 1.80% Lifetime Breast Cancer Risk 8.00% Personal Breast Cancer No Personal Ovarian Cancer No Treatments None Family Cancers Father with bladder cancer at age 72. LOCATION: [facility] BREAST COMPOSITION: Scattered areas fibroglandular density. FINDINGS: DIAGNOSTIC CATEGORY 2--BENIGN FINDING: RIGHT BREAST: Today's mammogram demonstrates a biopsy marker clip within the lower-inner quadrant and numerous scattered benign-appearing calcifications. Ultrasound demonstrates a grossly stable 6 x 5 x 4 mm hypoechoic geographic shaped lesion within the anterior 3 o'clock position of right breast with adjacent biopsy marker clip. Annual screening mammography is recommended. RECOMMENDATIONS: ROUTINE MAMMOGRAM AND CLINICAL EVALUATION IN 12 MONTHS. PLEASE NOTE: A NORMAL MAMMOGRAM DOES NOT EXCLUDE THE POSSIBILITY OF BREAST CANCER. A CLINICALLY SUSPICIOUS PALPABLE LUMP SHOULD BE BIOPSIED. Dictated by: Ryan Moreira M.D. on 03/03/2022 at 13:55 Approved by: Ryan Moreira M.D. on 03/03/2022 at 14:03 Normal [facility] US BREAST RIGHT LIMITEDon US BREAST RIGHT LIMITED Patient: JOSIE VELIZ I. Exam Date: 03/03/2022 : 1960 Gender:F Ordering : DR MARIA R GARCIA . Admission #: [id number] Family : Order #: [id number] CLICK HERE TO VIEW EXAM RADIOLOGY REPORT PROCEDURE: MAMMOGRAM DIAGNOSTIC 3D RIGHT CAD, 03/03/2022, 12:59 ULTRASOUND BREAST RIGHT LIMITED, 03/03/2022, 13:30 COMPARISON: US VAC ASST BX BRST RT W CLIP, 07/29/2021. MAMMO POST BIOPSY RIGHT, 07/29/2021. INDICATIONS: Lump in right breast Calculator Name NCI Breast Cancer Risk Assessment Tool 5 Year Breast Cancer Risk 1.80% Lifetime Breast Cancer Risk 8.00% Personal Breast Cancer No Personal Ovarian Cancer No Treatments None Family Cancers Father with bladder cancer at age 72. LOCATION: [facility] BREAST COMPOSITION: Scattered areas fibroglandular density. FINDINGS: DIAGNOSTIC CATEGORY 2--BENIGN FINDING: RIGHT BREAST: Today's mammogram demonstrates a biopsy marker clip within the lower-inner quadrant and numerous scattered benign-appearing calcifications. Ultrasound demonstrates a grossly stable 6 x 5 x 4 mm hypoechoic geographic shaped lesion within the anterior 3 o'clock position of right breast with adjacent biopsy marker clip. Annual screening mammography is recommended. RECOMMENDATIONS: ROUTINE MAMMOGRAM AND CLINICAL EVALUATION IN 12 MONTHS. PLEASE NOTE: A NORMAL MAMMOGRAM DOES NOT EXCLUDE THE POSSIBILITY OF BREAST CANCER. A CLINICALLY SUSPICIOUS PALPABLE LUMP SHOULD BE BIOPSIED. Dictated by: Ryan Moreira M.D. on 03/03/2022 at 13:55 Approved by: Ryan Moreira M.D. on 03/03/2022 at 14:03 Normal [facility] US VAC ASST BX BREAST RT W C LIPon 08-05-2021 US VAC ASST BX BREAST RT W CLIP Begin Addendum #1 COLLECTED DATE/TIME: 07/29/2021 09:52 EDT Final Diagnosis Report for [facility] [facility], [place], [place] RIGHT BREAST 3 O'CLOCK MASS; BIOPSY: -BENIGN BREAST PARENCHYMA WITH FIBROCYSTIC CHANGES, DENSE STROMA AND COLUMNAR CELL CHANGE. -NEGATIVE FOR MALIGNANCY. 08/04/[address] Garcia. Verified with Nhung that report was present in office. Original Report EXAMINATION: US VAC ASST BX BREAST RT W CLIP HISTORY: Mammographic mass of right breast COMPARISON: No relevant comparison available. TECHNIQUE: After obtaining informed consent, ultrasound-guided fine needle aspiration was performed in the usual sterile manner. FINDINGS: IMAGING: Ultrasound. BIOPSY NEEDLE: 13-gauge vacuum-assisted core mammotome LOCATION: 3:00 8 mm angular hypoechogenic right breast mass SPECIMEN TYPE: 5 core samples LOCAL ANESTHETIC: 3 cc 1% buffered lidocaine without epinephrine superficial, 6 cc 1% lidocaine with epinephrine deep. COMPLICATIONS: None. OTHER: Negative. PATHOLOGY: Pending. An addendum will be added when results are available. IMPRESSION: 1. Uneventful ultrasound guided vacuum assisted right breast core biopsy 2. Pathology results are pending. Normal [facility] MAMMO POST BIOPSY RIGHTon MAMMO POST BIOPSY RIGHT Patient: JOSIE VELIZ I. Exam Date: 07/29/2021 : 1960 Gender:F Ordering : DR MARIA R GARCIA . Admission #: [id number] Family : Order #: [id number] CLICK HERE TO VIEW EXAM RADIOLOGY REPORT PROCEDURE: MAMMOGRAM POST BIOPSY IMAGES COMPARISON: MG MAMM DIAGNOSTIC 3D TIGRE CAD, 07/22/2021. INDICATIONS: Mammographic mass of right breast BREAST COMPOSITION: FINDINGS: BIOPSY MARKER: A metallic marker has been placed in the targeted location within the lower inner quadrant of the right anterior breast. BREAST FINDINGS: Expected postprocedural changes with subcutaneous air and scattered density Dictated by: Dallin Bunch MD on 07/29/2021 at 10:14 Approved by: Dallin Bunch MD on 07/29/2021 at 10:17 Normal [facility] MAMM DIAGNOSTIC 3D TIGRE CA Don 07-22-2021 MG MAMM DIAGNOSTIC 3D TIGRE CAD Patient: JOSIE VELIZ I. Exam Date: 07/22/2021 : 1960 Gender:F Ordering : DR MARIA R GARCIA . Admission #: [id number] Family : Order #: [id number] CLICK HERE TO VIEW EXAM RADIOLOGY REPORT PROCEDURE: MAMMOGRAM DIAGNOSTIC 3D BILATERAL CAD, 07/22/2021, 12:53 ULTRASOUND BREAST RIGHT LIMITED, 07/22/2021, 13:37 COMPARISON: MG MAMM SCREEN TIGRE W CAD, 05/14/2018. INDICATIONS: Lump in right breast Calculator Name NCI Breast Cancer Risk Assessment Tool 5 Year Breast Cancer Risk 1.50% Lifetime Breast Cancer Risk 6.80% Personal Breast Cancer No Personal Ovarian Cancer No Treatments None Family Cancers Father with bladder cancer at age 72. LOCATION: [facility] BREAST COMPOSITION: Scattered areas fibroglandular density. FINDINGS: DIAGNOSTIC CATEGORY 4--SUSPICIOUS FOR MALIGNANCY. FINDING DOES NOT EXHIBIT CLASSIC FINDINGS OF BREAST CANCER: Scattered benign-appearing nodules are present. Scattered benign-appearing calcifications are present. Scattered benign-appearing lymph nodes are present. RIGHT BREAST: 3.5 cm from the patient's palpable abnormality along the anterior breast, lower inner quadrant is a 1.0 x 0.6 cm nodule stable from the prior exam. Ultrasound demonstrates at the 3 o'clock position corresponding to the patient's palpable abnormality a 1.0 x 0.5 x 0.7 cm angular partially circumscribed heterogeneous hypoechogenic mass with decreased acoustic through transmission. This lesion is indeterminate. Ultrasound core biopsy of this lesion was recommended to the patient LEFT BREAST: No significant suspicious finding. RECOMMENDATIONS: ULTRASOUND-GUIDED CORE BIOPSY: RIGHT BREAST 3 o'clock 1 cm mass PLEASE NOTE: A NORMAL MAMMOGRAM DOES NOT EXCLUDE THE POSSIBILITY OF BREAST CANCER. A CLINICALLY SUSPICIOUS PALPABLE LUMP SHOULD BE BIOPSIED. Dictated by: Dallin Bunch MD on 07/22/2021 at 13:46 Approved by: Dallin Bunch MD on 07/22/2021 at 13:49 Normal [facility] US BREAST RIGHT LIMITEDon US BREAST RIGHT LIMITED Patient: JOSIE VELIZ I. Exam Date: 07/22/2021 : 1960 Gender:F Ordering : DR MARIA R GARCIA . Admission #: [id number] Family : Order #: [id number] CLICK HERE TO VIEW EXAM RADIOLOGY REPORT PROCEDURE: MAMMOGRAM DIAGNOSTIC 3D BILATERAL CAD, 07/22/2021, 12:53 ULTRASOUND BREAST RIGHT LIMITED, 07/22/2021, 13:37 COMPARISON: MG MAMM SCREEN TIGRE W CAD, 05/14/2018. INDICATIONS: Lump in right breast Calculator Name NCI Breast Cancer Risk Assessment Tool 5 Year Breast Cancer Risk 1.50% Lifetime Breast Cancer Risk 6.80% Personal Breast Cancer No Personal Ovarian Cancer No Treatments None Family Cancers Father with bladder cancer at age 72. LOCATION: [facility] BREAST COMPOSITION: Scattered areas fibroglandular density. FINDINGS: DIAGNOSTIC CATEGORY 4--SUSPICIOUS FOR MALIGNANCY. FINDING DOES NOT EXHIBIT CLASSIC FINDINGS OF BREAST CANCER: Scattered benign-appearing nodules are present. Scattered benign-appearing calcifications are present. Scattered benign-appearing lymph nodes are present. RIGHT BREAST: 3.5 cm from the patient's palpable abnormality along the anterior breast, lower inner quadrant is a 1.0 x 0.6 cm nodule stable from the prior exam. Ultrasound demonstrates at the 3 o'clock position corresponding to the patient's palpable abnormality a 1.0 x 0.5 x 0.7 cm angular partially circumscribed heterogeneous hypoechogenic mass with decreased acoustic through transmission. This lesion is indeterminate. Ultrasound core biopsy of this lesion was recommended to the patient LEFT BREAST: No significant suspicious finding. RECOMMENDATIONS: ULTRASOUND-GUIDED CORE BIOPSY: RIGHT BREAST 3 o'clock 1 cm mass PLEASE NOTE: A NORMAL MAMMOGRAM DOES NOT EXCLUDE THE POSSIBILITY OF BREAST CANCER. A CLINICALLY SUSPICIOUS PALPABLE LUMP SHOULD BE BIOPSIED. Dictated by: Dallin Bunch MD on 07/22/2021 at 13:46 Approved by: Dallin Bunch MD on 07/22/2021 at 13:49 Normal [facility] Vital Signs Date Time Vital Sign Value Performing Clinician Chepei diana 06-22-2022 14:47-0400 Body height 170.2 cm Nevin Joseph PA-C Work Phone: [facility] 06-22-2022 14:47-0400 Body mass index (BMI) [Ratio] 31.32 kg/m2 Nevin Joseph PA-C Work Phone: [facility] 06-22-2022 14:47-0400 Body temperature 97 [degF] Nevin Joseph PA-C Work Phone: [facility] 06-22-2022 14:47-0400 Body weight 90.72 kg Nevin Joseph PA-C Work Phone: [facility] 06-08-2022 13:20-0400 Diastolic blood pressure 56 mm[Hg] Melodie Wilde MD Work Phone: [facility] 06-08-2022 13:20-0400 Heart rate 83 /min Melodie Wilde MD Work Phone: [facility] 06-08-2022 13:20-0400 Respiratory rate 18 /min Melodie Wilde MD Work Phone: [facility] 06-08-2022 13:20-0400 SaO2% (BldA) [Mass fraction] 95 % Melodie Wilde MD Work Phone: [facility] 06-08-2022 13:20-0400 Systolic blood pressure 116 mm[Hg] Melodie Wilde MD Work Phone: [facility] 06-08-2022 13:05-0400 Body temperature 97.3 [degF] Melodie Wilde MD Work Phone: [facility] 06-08-2022 11:12-0400 Body height 170.2 cm Melodie Wilde MD Work Phone: [facility] 06-08-2022 11:12-0400 Body mass index (BMI) [Ratio] 31.32 kg/m2 Melodie Wilde MD Work Phone: [facility] 06-08-2022 11:12-0400 Body weight 90.72 kg Melodie Wilde MD Work Phone: [facility] 05-30-2022 08:14-0400 Body height 170.2 cm Melodie Wilde MD Work Phone: [facility] 05-30-2022 08:14-0400 Body mass index (BMI) [Ratio] 31.32 kg/m2 Melodie Wilde MD Work Phone: [facility] 05-30-2022 08:14-0400 Body temperature 97.9 [degF] Melodie Wilde MD Work Phone: [facility] 05-30-2022 08: Body weight 90.72 kg Melodie Wilde MD Work Phone: [facility] Encounters Encounter Date Encounter Type Care Provider Facility Start: 06-22-2022 ambulatory NEVIN Katz [facility] Start: 06-22-2022 End: 06-22-2022 Postop follow up visit related to original px Nevin Katz Jake IZQUIERDO Work Phone: [facility] Comment on above: H/O excision of mass - Rt thumb IP jt mucous cyst (Primary Dx) Start: 06-08-2022 End: 06-08-2022 ambulatory [facility]ELODIE [facility]IL[facility] Start: 06-08-2022 End: 06-08-2022 Subsequent hospital visit by physician Melodie Wilde MD Work Phone: [facility] Peri Comment on above: Mass of finger of ri ght hand Start: 05-31-2022 ambulatory LYNWOOD [facility] Start: 05-30-2022 ambulatory [facility] Start: 05-30-2022 End: 05-30-2022 Subsequent hospital visit by physician Melodie Wilde MD Work Phone: [facility] Comment on above: Arrived Start: 05-30-2022 End: 05-30-2022 Office outpatient new 45 minutes Melodie Wilde MD Work Phone: [facility] Comment on above: Mass of finger, righ t (Primary Dx) Start: 05-17-2022 End: 05-19-[address] MARIA R GARCIA . Facility:[facility] Start: 05-16-2022 End: 05-16-[address] MARIA R GARCIA . Facility:[facility] Start: 03-20-[address] MARIA R GARCIA . Facili ty:[facility] Start: 03-03-2022 End: 03-04-[address] MARIA R GARCIA . Facility:[facility] Start: 07-29-2021 End: 07-29-[address] MARIA R GARCIA . Facility:[facility] Start: 07-22-2021 End: 07-23-[address] MARIA R GARCIA . Facility:[facility] Procedures Date Procedure Procedure Detail Performing Clinician H/O: surgery H/O excision of mass- Rt thumb IP jt mucous cyst Nevin Joseph PA-C Work Phone: Plan of Treatment Date Care Activity Detail Author Start: 06-22-2022 End: 06-22-2022 Patient encounter procedure 06/22/2022 Office Visit Orthopaedics Nevin Joseph PA-C [address] [place] [place] [address] [facility] Start: 06-08-2022 End: 06-08-2022 Admission to same day surgery center 06/08/2022 Surgery Multispecialty Melodie Wilde MD [address] [place] [address] EXCISION SOFT TISSUE FINGER HAND *WALANT* rt [facility] Comment on above: EXCISION SOFT TISSUE FINGER HAND *WALANT* rt Start: 06-08-2022 Subsequent hospital visit by physician 06/08/2022 Hospital Encounter Multispecialty Melodie Wilde MD [address] [place] [address] Mass of finger of right hand [facility] Comment on above: Mass of finger of ri ght hand Start: 06-08-2022 End: 06-08-2022 Exc maxwell/vasc mal sft tiss hand/fngr subq <1.5cm [facility] Start: 04-05-2021 COVID-19 VACCINE (4 - Booster for Pfizer series) COVID-19 VACCINE (4 - Booster for Pfizer series) [facility] Start: 05-19-2009 Zoster vaccine hzv live for subcutaneous use ZOSTER (SHINGLES) VACCINE (1 of 2) [facility] Start: 05-19-2004 Screening for malignant neoplasm of colon COLORECTAL CANCER SCREENING DISCUSSION [facility] Start: 1999 Lipid panel LIPID SCREENING [facility] Start: 1999 Screening for malignant neoplasm of breast MAMMOGRAM SCREENING DISCUSSION [facility] Start: 05-19-1980 Screening for malignant neoplasm of cervix CERVICAL CANCER SCREENING DISCUSSION [facility] Start: 05-19-1978 Third diphtheria, tetanus and acellular pertussis (DTaP) vaccination TDAP (ADULT) [facility] Start: 05-19-1974 HIV screening HIV SCREENING DISCUSSI ON [facility] Start: 1960 Hepatitis C screening HEPATITI S C VIRUS SCREENING [facility] Start: 1960 Tetanus vaccination TETANUS [facility] XR Thumb - right Views XR THUMB RIGHT Imaging Routine Mass of finger, right 05/30/2022 8:28 AM EDT [facility] Work Phone: Payers Date Payer Category Payer Private Health Insurance [facility] [id number] 2021-Present [address] [address] [place] [address] [id number] 1960 Unknown [id number] 593 1960 Unknown [id number]. 593 1959 Unknown [id number] [id number]. 593 1959 Unknown [id number] [id number]. 593 1959 Unknown [id number] [id number]. 593 1960 Unknown [id number] [id number]. 593 1959 Unknown [id number] [id number]. 983 1960 Unknown [id number] [id number]. 983 1960 Unknown [id number] [id number]. 983 1959 Unknown [id number] [id number]. 983 1960 Unknown [id number] [id number]. 983 1960 Private Health Insurance [id number] 1960 Self-pay [id number] 1960 Unknown [id number] Social History Date Type Detail Facility Start: 05-30-2022 Tobacco smoking status NHIS Never smoked tobacco [facility] Start: 05-30-2022 Tobacco use and exposure Smokeless tobacco non-user [facility] Start: 1960 Sex Assigned At Not on file [facility] Start: 05-29-2022 End: 06-08-2022 Exposure to SARS-CoV-2 (event) Not sure [facility] NEGATED: Highlighted rowStart: NINF History of tobacco use Passive smoker [facility] Medical Equipment Procedure Code Equipment Code Equipment Original Text Equi pment Identifier Dates Tests BS daily a nd as needed. [id number] Clinical Notes 05-30-2022 to 06-22-2022 Marilee Taveras - 06/22/2022 2:40 PM EDTLleonard Joseph PA-C - 06/22/2022 2:40 PM EDTDischaroselia Castañeda RN - 06/08/2022 1:10 PM Nissa Castañeda RN - 06/08/2022 1:10 PM EDT Note Date & Type Note Facility 06-22-2022 History of Presen t illness Narrative Review of Systems Constitutional: Negative for chills and fever. HENT: Negative for hearing loss. Eyes: Negative for visual disturbance. Respiratory: Negative for shortness of breath. Cardiovascular: Negative for chest pain. Gastrointestinal: Negative for abdominal pain and blood in stool. Endocrine: Negative for polydipsia. Genitourinary: Negative for hematuria. Musculoskeletal: Negative for arthralgias and myalgias. Neurological: Negative for dizziness, seizures and numbness. Hematological: Does not bruise/bleed easily. Psychiatric/Behavioral: Negative for dysphoric mood. 06/22/22 HPI: Josie Veliz presents to the office 2 weeks status post Right thumb mass excision, doing well. She has no complaints. Exam: Incision is clean and dry and healing well. She is able to make a composite fist. Sensation is intact to light touch. Brisk capillary refill. Skin is warm and dry. Assessment: S/P Right thumb mucous cyst excision Plan: Sutures were removed in the office today. I discussed scar massage. She has no restrictions and can progress activity as tolerated. Follow up on an as needed basis. documented in this encounter [facility] 06-08-2022 Hospital Discharg e instructions Marita Figueroa RN - 06/08/2022 1:[address] Wilde s Post-Op Hand Instructions Josie Veliz @[email or web address]@ Following your surgery, you will have a dressing on your arm or hand. Depending on the type of surgery, it may be a soft gauze dressing, julia bandage, cast or a combination of these. It is important to keep this dressing clean and dry, as it is meant to stay in place until you follow-up with the doctor or therapist. The surgeon may inform you or your family the day of surgery if these instructions may be modified. Avoid getting it wet and observe it for any drainage that may appear. If you note a large amount of drainage, please contact your doctor. There will be some discomfort or pain at the operative site. This can be lessened by the use of an ice pack, elevating your hand above the level of your heart, and by the use of pain medication as needed. After the first 24 hours, you should use the operated hand to the extent your dressing will allow and make a fist 20 times an hour. This will help decrease swelling, especially in the fingers, and aid in lessening stiffness following surgery. In addition, you may be instructed to begin a therapy program in the days following your surgery. If this is the case, you will be notified. If there are any questions or problems, please feel free to contact your physician by calling [phone] ([phone]). If it is after hours you can contact the congressional representative doctor by calling [facility] at . Prescription refills will only be done during normal business hours. Please allow 48 hours for your prescription to be refilled. There are certain restrictions that apply to the first 24 hours following surgery, especially after having a general or regional anesthetic: 1. Do not operate power equipment today (including cars, motorcycles, power saws, drills, etc.) 2. Do not sign any legal documents today. 3. Advance diet slowly, starting with liquids. No alcoholic beverages for at least 24 hours (longer if you are taking prescription pain medication). 4. You should be accompanied by an adult for the next 24 hours. documented in this encounter [facility] 06-08-2022 Nurse Surgical operation note Patient transported to outpatient bay#7 via bed. Bed locked and lowered, rails up. Monitors reapplied vitals stable. Call light within reach. Family/friend at bedside. Report given to Marita MARADIAGA. [facility] 06-08-2022 Nurse Note Patient transported to outpatient bay#7 via bed. Bed locked and lowered, rails up. Monitors reapplied vitals stable. Call light within reach. Family/friend at bedside. Report given to Marita MARADIAGA. documented in this encounter [facility] 06-08-2022 Note Formatting of this n ote might be different from the original. DATE: 06/08/2022 Patient: Josie Veliz Pre-Op Dx: Mass of finger of right hand [R22.31] Post-Op Dx: Mass of finger of right hand [R22.31] Procedure: Procedure(s) (LRB): EXCISION SOFT TISSUE FINGER HAND *WALANT* rt (Right) Surgeon: Surgeon(s) and Role: * Melodie Wilde MD - Primary Signal Operator: * No surgical staff found * ANESTHESIA TYPE: * No anesthesia type entered * ESTIMATED BLOOD LOSS: Minimal. COMPLICATIONS: None. DISPOSITION: To the recovery room in stable. INDICATIONS: Josie Veliz is 62 y.o. years old. Josie presented to my office with symptoms of Mass of finger of right hand [R22.31] and has failed non operative management. The risk and benefits of the procedure have been discussed in detail as well as non surgical options and Josie does wish to proceed. OPERATIVE TECHNIQUE: After properly identifying the patient, the patient's extremity and obtaining informed consent, the patient has WALANT anesthesia is induced. Next the patient was taken to the operating room and placed on the table in the supine position. The patient is next prepped and draped in a standard surgical fashion. Once inflated, an incision shaped like the letter T is made over the thumb interphalangeal joint. At this point in time, full-thickness skin flaps are created, taking care to protect the extensor tendon. Once the skin flaps are elevated, an incision is made on the radial and ulnar border of the extensor tendon, taking care to protect the extensor tendon and maintain in the distal interphalangeal joint and maximum extension. Subsequently, the osteophytes on the distal phalanx are identified and with a synovial rongeur, both are subsequently excised and the bone is taken to a smooth surface. At this point in time, the wound is irrigated, the skin is closed with 4-0 Nylon and a circumferential dressing is applied. The patient is awakened and transported to the recovery room in stable condition, having tolerated the procedure well. [facility] 06-08-2022 Note Formatting of this n ote might be different from the original. DATE: 06/08/2022 Patient: Josie Veliz Pre-Op Dx: Mass of finger of right hand [R22.31] Post-Op Dx: Mass of finger of right hand [R22.31] Procedure: Procedure(s) (LRB): EXCISION SOFT TISSUE FINGER HAND *WALANT* rt (Right) Surgeon: Surgeon(s) and Role: * Melodie Wilde MD - Primary Signal Operator: * No surgical staff found * ANESTHESIA TYPE: * No anesthesia type entered * INTRAVENOUS FLUIDS: Per anesthesia record ESTIMATED BLOOD LOSS: Per anesthesia record Specimens: * No specimens in log * Implants: * No implants in log * COMPLICATIONS: * No complications entered in OR log * DISPOSITION: To the recovery room in stable condition [facility] 06-08-2022 Miscellaneous Notes Formattin g of this note might be different from the original. DATE: 06/08/2022 Patient: Josie Veliz Pre-Op Dx: Mass of finger of right hand [R22.31] Post-Op Dx: Mass of finger of right hand [R22.31] Procedure: Procedure(s) (LRB): EXCISION SOFT TISSUE FINGER HAND *WALANT* rt (Right) Surgeon: Surgeon(s) and Role: * Melodie Wilde MD - Primary Signal Operator: * No surgical staff found * ANESTHESIA TYPE: * No anesthesia type entered * ESTIMATED BLOOD LOSS: Minimal. COMPLICATIONS: None. DISPOSITION: To the recovery room in stable. INDICATIONS: Josie Veliz is 62 y.o. years old. Josie presented to my office with symptoms of Mass of finger of right hand [R22.31] and has failed non operative management. The risk and benefits of the procedure have been discussed in detail as well as non surgical options and Josie does wish to proceed. OPERATIVE TECHNIQUE: After properly identifying the patient, the patient's extremity and obtaining informed consent, the patient has WALANT anesthesia is induced. Next the patient was taken to the operating room and placed on the table in the supine position. The patient is next prepped and draped in a standard surgical fashion. Once inflated, an incision shaped like the letter T is made over the thumb interphalangeal joint. At this point in time, full-thickness skin flaps are created, taking care to protect the extensor tendon. Once the skin flaps are elevated, an incision is made on the radial and ulnar border of the extensor tendon, taking care to protect the extensor tendon and maintain in the distal interphalangeal joint and maximum extension. Subsequently, the osteophytes on the distal phalanx are identified and with a synovial rongeur, both are subsequently excised and the bone is taken to a smooth surface. At this point in time, the wound is irrigated, the skin is closed with 4-0 Nylon and a circumferential dressing is applied. The patient is awakened and transported to the recovery room in stable condition, having tolerated the procedure well. DATE: 06/08/2022 Patient: Josie Veliz Pre-Op Dx: Mass of finger of right hand [R22.31] Post-Op Dx: Mass of finger of right hand [R22.31] Procedure: Procedure(s) (LRB): EXCISION SOFT TISSUE FINGER HAND *WALANT* rt (Right) Surgeon: Surgeon(s) and Role: * Melodie Wilde MD - Primary Signal Operator: * No surgical staff found * ANESTHESIA TYPE: * No anesthesia type entered * INTRAVENOUS FLUIDS: Per anesthesia record ESTIMATED BLOOD LOSS: Per anesthesia record Specimens: * No specimens in log * Implants: * No implants in log * COMPLICATIONS: * No complications entered in OR log * DISPOSITION: To the recovery room in stable condition documented in this encounter [facility] 06-08-2022 Attending History and physical note I have examined the patient and reviewed the previous H&P and there are no changes. Melodie Wilde MD 06/08/2022 11:00 AM Source Note - Melodie Wilde MD - 05/30/2022 8:00 AM EDT 05/30/22 Chief Complaint Patient presents with Right Thumb - Consult Nodule on Rt.thumb HPI: Josie is here today in follow up of her right thumb. She has had a mass on it for a couple of months now with no history of trauma. She states it is symptomatic, it hurts her if she bumps it or uses her hand wrong. Past Medical History: Diagnosis Date Acute anxiety Diabetes Hypercholesteremia Hypertension Past Surgical History: Procedure Laterality Date SECTION N/A 1981 SECTION N/A 1979 REMOVAL BILIARY DUCT/GALLBLADDER CALCULI/DEBRIS PERCUTANEOUS W/ IMAGE N/A Current Outpatient Medications: Amitriptyline 10 MG tablet, , Disp: , Rfl: Atorvastatin 20 MG tablet, Take 1 tablet by mouth every evening., Disp: , Rfl: buPROPion 200 MG tablet SR, Take 1 tablet by mouth daily every morning., Disp: , Rfl: diclofenac EC [address] tablet, , Disp: , Rfl: escitalopram 20 MG tablet, Take 1 tablet by mouth daily every morning., Disp: , Rfl: fluticasone 50 MCG/ACT Suspension nasal spray, 1 spray by Nasal route daily., Disp: , Rfl: glucose blood test strips Strip strip, Tests BS daily and as needed., Disp: , Rfl: lamoTRIgine 25 MG tablet, Take 2 tablets by mouth at bedtime., Disp: , Rfl: Lisinopril 20 MG tablet, TAKE ONE TABLET BY MOUTH DAILY IN THE MORNING FOR BLOOD PRESSURE, Disp: , Rfl: metFORMIN-XR 500 MG Tab SR 24 HR, Take 2 tablets by mouth daily., Disp: , Rfl: temazepam 30 MG capsule, Take 1 capsule by mouth at bedtime., Disp: , Rfl: traZODone 100 MG tablet, Take 1 tablet by mouth Every night., Disp: , Rfl: No Known Allergies Social History Socioeconomic History Marital status: Spouse name: Not on file Number of children: Not on file Years of education: Not on file Highest education level: Not on file Occupational History Not on file Tobacco Use Smoking status: Never Passive exposure: Never Smokeless tobacco: Never Substance and Sexual Activity Alcohol use: Not on file Drug use: Not on file Sexual activity: Not on file Other Topics Concern Not on file Social History Narrative Not on file Social Determinants of Health Financial Resource Strain: Not on file Food Insecurity: Not on file Transportation Needs: Not on file Physical Activity: Not on file Stress: Not on file Social Connections: Not on file Intimate Partner Violence: Not on file Housing Stability: Not on file Family History Problem Relation Age of Onset Hypertension Mother Lipid Disorder Mother Diabetes Mother Hypertension Father Other - Specify Father Diabetes Father Review of Systems Constitutional: Negative for chills, fatigue and fever. Eyes: Negative for visual disturbance. Respiratory: Negative for shortness of breath. Cardiovascular: Negative for chest pain. Gastrointestinal: Negative for abdominal pain and blood in stool. Endocrine: Negative for polydipsia. Genitourinary: Negative for hematuria. Musculoskeletal: Negative for arthralgias and myalgias. Neurological: Negative for seizures. Hematological: Does not bruise/bleed easily. Psychiatric/Behavioral: Positive for dysphoric mood. Physical Examination: Visit Vitals Temp 97.9 F (36.6 C) Ht 1.702 m (5' 7 ) Wt 90.7 kg (200 lb) BMI 31.32 kg/m A&O x3 Lungs: Clear to auscultation Heart: Regular Rate and Rhythm Abdomen: Normoactive Bowel sounds Extremity: Examination today demonstrates a dorsal cyst on the IP joint of her thumb consistent with a mucous cyst. She is neurovascularly intact. Skin is warm and dry. Brisk capillary refill. Diagnostic Studies: AP, oblique and lateral projections of the right thumb demonstrate no acute fracture, dislocation or other bony abnormality. There is soft tissue swelling over the dorsal IP joint. Assessment: 1. Right thumb mass, most likely a mucous cyst. Plan: She desires excision under [facility]. Risks and benefits of surgical intervention were reviewed. She understands the risks and benefits, and does wish to proceed. She will be placed on the schedule in the near future. [facility] 06-08-2022 History and physical note I have examined the patient and reviewed the previous H&P and there are no changes. Melodie Wilde MD 06/08/2022 11:00 AM Source Note - Melodie Wilde MD - 05/30/2022 8:00 AM EDT 05/30/22 Chief Complaint Patient presents with Right Thumb - Consult Nodule on Rt.thumb HPI: Geiger is here today in follow up of her right thumb. She has had a mass on it for a couple of months now with no history of trauma. She states it is symptomatic, it hurts her if she bumps it or uses her hand wrong. Past Medical History: Diagnosis Date Acute anxiety Diabetes Hypercholesteremia Hypertension Past Surgical History: Procedure Laterality Date SECTION N/A 1981 SECTION N/A 1979 REMOVAL BILIARY DUCT/GALLBLADDER CALCULI/DEBRIS PERCUTANEOUS W/ IMAGE N/A Current Outpatient Medications: Amitriptyline 10 MG tablet, , Disp: , Rfl: Atorvastatin 20 MG tablet, Take 1 tablet by mouth every evening., Disp: , Rfl: buPROPion 200 MG tablet SR, Take 1 tablet by mouth daily every morning., Disp: , Rfl: diclofenac EC [address] tablet, , Disp: , Rfl: escitalopram 20 MG tablet, Take 1 tablet by mouth daily every morning., Disp: , Rfl: fluticasone 50 MCG/ACT Suspension nasal spray, 1 spray by Nasal route daily., Disp: , Rfl: glucose blood test strips Strip strip, Tests BS daily and as needed., Disp: , Rfl: lamoTRIgine 25 MG tablet, Take 2 tablets by mouth at bedtime., Disp: , Rfl: Lisinopril 20 MG tablet, TAKE ONE TABLET BY MOUTH DAILY IN THE MORNING FOR BLOOD PRESSURE, Disp: , Rfl: metFORMIN-XR 500 MG Tab SR 24 HR, Take 2 tablets by mouth daily., Disp: , Rfl: temazepam 30 MG capsule, Take 1 capsule by mouth at bedtime., Disp: , Rfl: traZODone 100 MG tablet, Take 1 tablet by mouth Every night., Disp: , Rfl: No Known Allergies Social History Socioeconomic History Marital status: Spouse name: Not on file Number of children: Not on file Years of education: Not on file Highest education level: Not on file Occupational History Not on file Tobacco Use Smoking status: Never Passive exposure: Never Smokeless tobacco: Never Substance and Sexual Activity Alcohol use: Not on file Drug use: Not on file Sexual activity: Not on file Other Topics Concern Not on file Social History Narrative Not on file Social Determinants of Health Financial Resource Strain: Not on file Food Insecurity: Not on file Transportation Needs: Not on file Physical Activity: Not on file Stress: Not on file Social Connections: Not on file Intimate Partner Violence: Not on file Housing Stability: Not on file Family History Problem Relation Age of Onset Hypertension Mother Lipid Disorder Mother Diabetes Mother Hypertension Father Other - Specify Father Diabetes Father Review of Systems Constitutional: Negative for chills, fatigue and fever. Eyes: Negative for visual disturbance. Respiratory: Negative for shortness of breath. Cardiovascular: Negative for chest pain. Gastrointestinal: Negative for abdominal pain and blood in stool. Endocrine: Negative for polydipsia. Genitourinary: Negative for hematuria. Musculoskeletal: Negative for arthralgias and myalgias. Neurological: Negative for seizures. Hematological: Does not bruise/bleed easily. Psychiatric/Behavioral: Positive for dysphoric mood. Physical Examination: Visit Vitals Temp 97.9 F (36.6 C) Ht 1.702 m (5' 7 ) Wt 90.7 kg (200 lb) BMI 31.32 kg/m A&O x3 Lungs: Clear to auscultation Heart: Regular Rate and Rhythm Abdomen: Normoactive Bowel sounds Extremity: Examination today demonstrates a dorsal cyst on the IP joint of her thumb consistent with a mucous cyst. She is neurovascularly intact. Skin is warm and dry. Brisk capillary refill. Diagnostic Studies: AP, oblique and lateral projections of the right thumb demonstrate no acute fracture, dislocation or other bony abnormality. There is soft tissue swelling over the dorsal IP joint. Assessment: 1. Right thumb mass, most likely a mucous cyst. Plan: She desires excision under [facility]. Risks and benefits of surgical intervention were reviewed. She understands the risks and benefits, and does wish to proceed. She will be placed on the schedule in the near future. documented in this encounter [facility] 05-30-2022 History and physical note 05/30/22 Chief Complaint Patient presents with Right Thumb - Consult Nodule on Rt.thumb HPI: Geiger is here today in follow up of her right thumb. She has had a mass on it for a couple of months now with no history of trauma. She states it is symptomatic, it hurts her if she bumps it or uses her hand wrong. Past Medical History: Diagnosis Date Acute anxiety Diabetes Hypercholesteremia Hypertension Past Surgical History: Procedure Laterality Date SECTION N/A 1981 SECTION N/A 1979 REMOVAL BILIARY DUCT/GALLBLADDER CALCULI/DEBRIS PERCUTANEOUS W/ IMAGE N/A Current Outpatient Medications: Amitriptyline 10 MG tablet, , Disp: , Rfl: Atorvastatin 20 MG tablet, Take 1 tablet by mouth every evening., Disp: , Rfl: buPROPion 200 MG tablet SR, Take 1 tablet by mouth daily every morning., Disp: , Rfl: diclofenac EC [address] tablet, , Disp: , Rfl: escitalopram 20 MG tablet, Take 1 tablet by mouth daily every morning., Disp: , Rfl: fluticasone 50 MCG/ACT Suspension nasal spray, 1 spray by Nasal route daily., Disp: , Rfl: glucose blood test strips Strip strip, Tests BS daily and as needed., Disp: , Rfl: lamoTRIgine 25 MG tablet, Take 2 tablets by mouth at bedtime., Disp: , Rfl: Lisinopril 20 MG tablet, TAKE ONE TABLET BY MOUTH DAILY IN THE MORNING FOR BLOOD PRESSURE, Disp: , Rfl: metFORMIN-XR 500 MG Tab SR 24 HR, Take 2 tablets by mouth daily., Disp: , Rfl: temazepam 30 MG capsule, Take 1 capsule by mouth at bedtime., Disp: , Rfl: traZODone 100 MG tablet, Take 1 tablet by mouth Every night., Disp: , Rfl: No Known Allergies Social History Socioeconomic History Marital status: Spouse name: Not on file Number of children: Not on file Years of education: Not on file Highest education level: Not on file Occupational History Not on file Tobacco Use Smoking status: Never Passive exposure: Never Smokeless tobacco: Never Substance and Sexual Activity Alcohol use: Not on file Drug use: Not on file Sexual activity: Not on file Other Topics Concern Not on file Social History Narrative Not on file Social Determinants of Health Financial Resource Strain: Not on file Food Insecurity: Not on file Transportation Needs: Not on file Physical Activity: Not on file Stress: Not on file Social Connections: Not on file Intimate Partner Violence: Not on file Housing Stability: Not on file Family History Problem Relation Age of Onset Hypertension Mother Lipid Disorder Mother Diabetes Mother Hypertension Father Other - Specify Father Diabetes Father Review of Systems Constitutional: Negative for chills, fatigue and fever. Eyes: Negative for visual disturbance. Respiratory: Negative for shortness of breath. Cardiovascular: Negative for chest pain. Gastrointestinal: Negative for abdominal pain and blood in stool. Endocrine: Negative for polydipsia. Genitourinary: Negative for hematuria. Musculoskeletal: Negative for arthralgias and myalgias. Neurological: Negative for seizures. Hematological: Does not bruise/bleed easily. Psychiatric/Behavioral: Positive for dysphoric mood. Physical Examination: Visit Vitals Temp 97.9 F (36.6 C) Ht 1.702 m (5' 7 ) Wt 90.7 kg (200 lb) BMI 31.32 kg/m A&O x3 Lungs: Clear to auscultation Heart: Regular Rate and Rhythm Abdomen: Normoactive Bowel sounds Extremity: Examination today demonstrates a dorsal cyst on the IP joint of her thumb consistent with a mucous cyst. She is neurovascularly intact. Skin is warm and dry. Brisk capillary refill. Diagnostic Studies: AP, oblique and lateral projections of the right thumb demonstrate no acute fracture, dislocation or other bony abnormality. There is soft tissue swelling over the dorsal IP joint. Assessment: 1. Right thumb mass, most likely a mucous cyst. Plan: She desires excision under [facility]. Risks and benefits of surgical intervention were reviewed. She understands the risks and benefits, and does wish to proceed. She will be placed on the schedule in the near future. [employer] Work Phone: 05-30-2022 History and physical note 05/30/22 Chief Complaint Patient presents with Right Thumb - Consult Nodule on Rt.thumb HPI: Geiger is here today in follow up of her right thumb. She has had a mass on it for a couple of months now with no history of trauma. She states it is symptomatic, it hurts her if she bumps it or uses her hand wrong. Past Medical History: Diagnosis Date Acute anxiety Diabetes Hypercholesteremia Hypertension Past Surgical History: Procedure Laterality Date SECTION N/A 1981 SECTION N/A 1979 REMOVAL BILIARY DUCT/GALLBLADDER CALCULI/DEBRIS PERCUTANEOUS W/ IMAGE N/A Current Outpatient Medications: Amitriptyline 10 MG tablet, , Disp: , Rfl: Atorvastatin 20 MG tablet, Take 1 tablet by mouth every evening., Disp: , Rfl: buPROPion 200 MG tablet SR, Take 1 tablet by mouth daily every morning., Disp: , Rfl: diclofenac EC [address] tablet, , Disp: , Rfl: escitalopram 20 MG tablet, Take 1 tablet by mouth daily every morning., Disp: , Rfl: fluticasone 50 MCG/ACT Suspension nasal spray, 1 spray by Nasal route daily., Disp: , Rfl: glucose blood test strips Strip strip, Tests BS daily and as needed., Disp: , Rfl: lamoTRIgine 25 MG tablet, Take 2 tablets by mouth at bedtime., Disp: , Rfl: Lisinopril 20 MG tablet, TAKE ONE TABLET BY MOUTH DAILY IN THE MORNING FOR BLOOD PRESSURE, Disp: , Rfl: metFORMIN-XR 500 MG Tab SR 24 HR, Take 2 tablets by mouth daily., Disp: , Rfl: temazepam 30 MG capsule, Take 1 capsule by mouth at bedtime., Disp: , Rfl: traZODone 100 MG tablet, Take 1 tablet by mouth Every night., Disp: , Rfl: No Known Allergies Social History Socioeconomic History Marital status: Spouse name: Not on file Number of children: Not on file Years of education: Not on file Highest education level: Not on file Occupational History Not on file Tobacco Use Smoking status: Never Passive exposure: Never Smokeless tobacco: Never Substance and Sexual Activity Alcohol use: Not on file Drug use: Not on file Sexual activity: Not on file Other Topics Concern Not on file Social History Narrative Not on file Social Determinants of Health Financial Resource Strain: Not on file Food Insecurity: Not on file Transportation Needs: Not on file Physical Activity: Not on file Stress: Not on file Social Connections: Not on file Intimate Partner Violence: Not on file Housing Stability: Not on file Family History Problem Relation Age of Onset Hypertension Mother Lipid Disorder Mother Diabetes Mother Hypertension Father Other - Specify Father Diabetes Father Review of Systems Constitutional: Negative for chills, fatigue and fever. Eyes: Negative for visual disturbance. Respiratory: Negative for shortness of breath. Cardiovascular: Negative for chest pain. Gastrointestinal: Negative for abdominal pain and blood in stool. Endocrine: Negative for polydipsia. Genitourinary: Negative for hematuria. Musculoskeletal: Negative for arthralgias and myalgias. Neurological: Negative for seizures. Hematological: Does not bruise/bleed easily. Psychiatric/Behavioral: Positive for dysphoric mood. Physical Examination: Visit Vitals Temp 97.9 F (36.6 C) Ht 1.702 m (5' 7 ) Wt 90.7 kg (200 lb) BMI 31.32 kg/m A&O x3 Lungs: Clear to auscultation Heart: Regular Rate and Rhythm Abdomen: Normoactive Bowel sounds Extremity: Examination today demonstrates a dorsal cyst on the IP joint of her thumb consistent with a mucous cyst. She is neurovascularly intact. Skin is warm and dry. Brisk capillary refill. Diagnostic Studies: AP, oblique and lateral projections of the right thumb demonstrate no acute fracture, dislocation or other bony abnormality. There is soft tissue swelling over the dorsal IP joint. Assessment: 1. Right thumb mass, most likely a mucous cyst. Plan: She desires excision under [facility]. Risks and benefits of surgical intervention were reviewed. She understands the risks and benefits, and does wish to proceed. She will be placed on the schedule in the near future. documented in this encounter [facility] 05-30-2022 History of Presen t illness Narrative Review of Systems Constitutional: Negative for chills, fatigue and fever. Eyes: Negative for visual disturbance. Respiratory: Negative for shortness of breath. Cardiovascular: Negative for chest pain. Gastrointestinal: Negative for abdominal pain and blood in stool. Endocrine: Negative for polydipsia. Genitourinary: Negative for hematuria. Musculoskeletal: Negative for arthralgias and myalgias. Neurological: Negative for seizures. Hematological: Does not bruise/bleed easily. Psychiatric/Behavioral: Positive for dysphoric mood. documented in this encounter [facility] Evaluation note Diagnosis Mass of finger, right- Primary Mass of finger of right hand Localized superficial swelling, mass, or lump [facility] Diagnosis Post-op pain- Primary Other acute postoperative pain [facility] Diagnosis H/O excision of mass- Rt thumb IP jt mucous cyst- Primary Personal history of surgery to other organs documented in this encounter [facility] Summary Purpose Family History No Family History Records FoundNo Family History Records Found Advance Directives No Advanced Directives Records FoundNo Advanced Directives Records Found Reason for Referral Specialty Diagnoses / Procedures Referred By Conttony powell Referred To Contact Diagnoses Mass of finger, right Procedures XR THUMB RIGHT Melodie Wilde MD [address] [place] [id number] Referral ID Status Reason Start Date Expiration Date V isits Requested Visits Authorized [id number] New Request 05/22/2022 06/16/2023 1 1 Additional Source Comments INFORMATION SOURCE (unrecogn ized section and content) DATE CREATED AUTHOR 05/26/2022 [facility] DATE CREATED AUTHOR AUTHOR'S ORGANIZ ATION 06/23/2022 [facility] Reason for Visit (unrecogniz ed section and content) Specialty Diagnoses / Procedures Referred By Paige powell Referred To Contact Diagnoses Mass of finger, right Procedures XR THUMB RIGHT Melodie Wilde MD [address] [place] [address] Referral ID Status Reason Start Date Expiration Date V isits Requested Visits Authorized [id number] New Request 05/22/2022 06/16/2023 1 1 Reason Comments Consult Nodule on Rt.thumb Specialty Diagnoses / Procedures Referred By Paige powell Referred To Contact Diagnoses Mass of finger of right hand Mass of finger of right hand [R22.31] Procedures MT EXC MAXWELL/VASC MAL SFT TISS HAND/FNGR SUBQ <1.5CM EXCISION SOFT TISSUE FINGER HAND Melodie Wilde MD [address] [place] [address] Referral ID Status Reason Start Date Expiration Date Visits Re quested Visits Authorized [id number] 05/31/2022 1 1 Reason Comments Follow-up S/p Right Hand Mass Excision(Thumb IP Mucous Cyst)/ OR: 06/08/22(2w)/ Pain Scale: 0/10 Post Op Visit S/p Right Hand Mass Excision(Thumb IP Mucous Cyst)/ OR: 06/08/22(2w)/ Pain Scale: 0/10 Care Teams (unrecognized sec tion and content) Home Sales Consultant Relationship Specialty Start Date End Date Maria R Garcia MD [address] [place] [address] PCP - General Family Medicine 04/04/22 Home Sales Consultant Relationship Specialty Start Date End Date Maria R Garcia MD [address] [place] [address] PCP - General Family Medicine 04/04/22 Home Sales Consultant Relationship Specialty Start Date End Date Maria R Garcia MD [address] [place] [address] PCP - General Family Medicine 04/04/22 Home Sales Consultant Relationship Specialty Start Date End Date Maria R Garcia MD [address] [place] [address] PCP - General Family Medicine 04/04/22 Scheduled Active and Recently Administ ered Medications (unrecognized section and content) Medication Order 06/06/2022 06/07/2022 06/08/2022 lidocaine 1%/ epinephrine 1:100,000 with sodium bicarbonate 8.4% (10 mL Prepared by Pharmacy) 1-10 mL, Infiltration, INTRA-OP ONCE, Starting on Christina 06/08/22 at 1430, Until Christina 06/08/22 at 1542, For physician administration ONLY, Intra-op/Intra-Proc 1120 (Given - Provid er: Cornelio Maldonado LPN) lidocaine 1%/epinephrine 1:100,000 with sodium bicarbonate 8.4% (3mL Prepared by Pharmacy) 0-3 mL, Infiltration, INTRA-OP ONCE, Starting on Christina 06/08/22 at 1430, Until Christina 06/08/22 at 1542, For physician administration ONLY, Intra-op/Intra-Proc 1121 (Given - Provid er: Cornelio Maldonado LPN) PRN Medication Order 06/06/2022 06/07/2022 06/08/2022 Gentamicin (GARAMYCIN) injection NEEDED, Starting on Christina 06/08/22 at 1134, Until Christina 06/08/22 at 1542, Intra-op/Intra-Proc 1134 (Given - Provid er: Melodie Wilde MD) Sodium chloride 0.9 % irrigation NEEDED, Starting on Christina 06/08/22 at 1134, Until Christina 06/08/22 at 1542, Intra-op/Intra-Proc 1134 (Given - Provid er: Melodie Wilde MD) FOR RECORDS PERTAINING TO PATIENTS WHO ARE OR HAVE BEEN ENROLLED IN A CHEMICAL DEPENDENCY/SUBSTANCEABUSE PROGRAM, SOME INFORMATION MAY BE OMITTED. This clinical summary was aggregated from multiple sources. Caution should be exercised in using it in the provision of clinical care. This summary normalizes information from multiple sources, and as a consequence, information in this document may materially change the coding, format and clinical context of patient data. In addition, data may be omitted in some cases. CLINICAL DECISIONS SHOULD BE BASED ON THE PRIMARY CLINICAL RECORDS. [facility] [employer] [facility]. provides no warranty or guarantee of the accuracy or completeness of information in this document.
[2024-01-26 09:34] LABS: Basophils Absolute Auto 0.1 10^3/uL (0.0-0.1); Basophils Percent Auto 1.4 % (0.2-2.0); Eosinophils Absolute Auto 0.4 10^3/uL (0.0-0.7); Eosinophils Percent Auto 6.1 % (0.9-7.0); Hematocrit 41.9 % (36.0-48.0); Hemoglobin 13.2 g/dL (12.0-16.0); Immature Granulocytes Abs Auto 0.03 10^3/uL (0.00-0.03); Immature Granulocytes Pct Auto 0.5 % (0.0-0.5); Lymphocytes Absolute Auto 1.9 10^3/uL (1.2-3.8); Lymphocytes Percent Auto 32.9 % (20.5-60.0); Mean Corpuscular HGB Conc 31.5 g/dL (29.9-35.2); Mean Corpuscular Volume 82.6 fL (81.0-99.0); Mean Platelet Volume 9.6 fL (9.5-13.5); Monocytes Absolute Auto 0.6 10^3/uL (0.3-0.8); Monocytes Percent Auto 9.5 % (1.7-12.0); Neutrophils Absolute Auto 2.9 10^3/uL (1.4-6.5); Neutrophils Percent Auto 49.6 % (43.0-75.0); Platelet Count 238 10^3/uL (150-450); Red Blood Count 5.07 10^6/uL (4.20-5.40); Red Cell Distribution Width 13.4 % (11.0-15.0); White Blood Count 5.9 10^3/uL (4.0-11.0)
[2024-01-26 09:37] LABS: Estimated Average Glucose 298 mg/dL
[2024-01-26 09:58] LABS: Alanine Aminotransferase 53 U/L (14-59); Albumin Globulin Ratio 1.2; Albumin Level 3.6 g/dL (3.4-5.0); Alkaline Phosphatase 82 U/L (46-116); Anion Gap 15.6; Aspartate Amino Transferase 34 U/L (15-37); BUN Creatinine Ratio 19.4; Bilirubin Total 0.6 mg/dL (0.2-1.0); Calcium 9.2 mg/dL (8.5-10.1); Carbon Dioxide 27.3 mmol/L (21.0-32.0); Chloride 103 mmol/L (98-107); Chol HDL Ratio 3.6; Cholesterol 196 mg/dL (<=200); Estimated GFR (African America >60 (>=60 mL/min/1.73m^2); Estimated GFR (Non-African Ame 57 (>=60 mL/min/1.73m^2); Free T3 1.63 pg/mL (2.18-3.98); Globulin 3.1 g/dL; Glucose 313 mg/dL (74-106); HDL Cholesterol 54 mg/dL (40-60); Potassium 4.9 mmol/L (3.5-5.1); Sodium 141 mmol/L (136-145); Thyroid Stimulating Hormone 1.014 uIU/mL (0.358-3.740); Total Protein 6.7 g/dL (6.4-8.2); Triglycerides 188 mg/dL (<=150); VLDL CHOLESTEROL 37.6 mg/dL
== END 2024-01-26 08:06 | disposition home or self-care (01) ==
LOC: LAB 08:08
PROVIDERS: PCP Family Medicine; Visit Provider Family Medicine
DX: Z00.00 Encounter for general adult medical examination without abnormal findings (principal); I10 Essential (primary) hypertension; E11.9 Type 2 diabetes mellitus without complications; E78.00 Pure hypercholesterolemia, unspecified; R53.83 Other fatigue
CPT/HCPCS: 36415; 80053; 80061; 83036; 84436; 84443; 84481; 85025

== ENCOUNTER 2024-02-21 10:00 | Outpatient (OUT) | payer OTHER, SELFPAY ==
--- NOTE | 2024-02-21 | MM_ITS ---
Patient Name: JOSIE CABRERA MR#: [id number] : 1960 Exam Date: 02/21/2024 Ordering Doctor: DR Shadi Garcia . RADIOLOGY REPORT PROCEDURE: MM TOMOSYNTHESIS SCREENING BI COMPARISON: MG MAMM DX 3D RT CAD, 03/03/2022. MAMMO POST BIOPSY RIGHT, 07/29/2021. INDICATIONS: Screening Calculator Name NCI Breast Cancer Risk Assessment Tool 5 Year Breast Cancer Risk 1.90% Lifetime Breast Cancer Risk 7.50% Personal Breast Cancer No Personal Ovarian Cancer No Treatments None Family Cancers Father with bladder cancer at age 72. LOCATION: [facility] BREAST COMPOSITION: There are scattered areas of fibroglandular density. FINDINGS: DIAGNOSTIC CATEGORY 2--BENIGN FINDING. NO CHANGE FROM COMPARISON. Scattered benign-appearing nodules are present. Scattered benign-appearing calcifications are present. Scattered benign-appearing lymph nodes are present. RIGHT BREAST: No significant suspicious finding. LEFT BREAST: No significant suspicious finding. RECOMMENDATIONS: ROUTINE MAMMOGRAM AND CLINICAL EVALUATION IN 12 MONTHS. PLEASE NOTE: A NORMAL MAMMOGRAM DOES NOT EXCLUDE THE POSSIBILITY OF BREAST CANCER. A CLINICALLY SUSPICIOUS PALPABLE LUMP SHOULD BE BIOPSIED. Dictated by: Gavin Bunch MD on 02/21/2024 at 12:44 Approved by: Gavin Bunch MD on 02/21/2024 at 12:45
--- OUTSIDE RECORDS SUMMARY | 2024-02-21 10:07 | XMS_ITS | CCD ---
Author Organization [facility] Care Team Providers Care Flasher Adjuster Name Role Phone JOANNA ., DR HECK [...] Maria R Garcia MD Primary Care Provider [phone] RICKY, MARIA R M Primary Care Unavailable [...] (2 sources) levoFLOXacin Drug Allergy 08-26-[address] [facility] Repository Medications Current Medications Medication Drug Class(es) [...] Onset: 07-22-2021 Episodic Other aftercare (1 source) group home (current) use of aspirin; 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: [PATIENT TRANSPORT OFFICER CURRENT USE OF ASPIRIN] Onset: 05-24-2022 Episodic Other aftercare (1 source) group home (current) use of oral hypoglycemic drugs; 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: [PATIENT TRANSPORT OFFICER USE ORAL HYPOGLYCEMIC DX] Onset: 05-24-2022 Episodic [...] 05-19-2022 BASO # 0.0 103/ul Normal 0.0-0.1 [facility] Comment on above: Performed By: #### P OCGLUC #### [facility] [address] [address] [address] Nan Jeffers Basophils/100 WBC (Bld) 0.2 % Normal 0.2-2.0 [facility] Comment on above: Performed By: #### P OCGLUC #### [facility] [address] [address] [address] Nan Jeffers EO # 0.0 103/ul Normal 0.0-0.[address] [facility] Comment on above: Performed By: #### P OCGLUC #### [facility] [address] [address] [address] Nan Jeffers Eosinophils/100 WBC (Bld) 0.0 % Critically low 0.9-7.[address] [facility] Comment on above: Performed By: #### P OCGLUC #### [facility] [address] [address] [address] Nan Jeffers Erythrocyte distribution width (RBC) [Ratio] 12.9 % Normal 11.0-15.0 [facility] Comment on above: Performed By: #### P OCGLUC #### [facility] [address] [address] [address] Nan Jeffers Hematocrit (Bld) [Volume fraction] 33.1 % Critically low 36.0-48.0 [facility] Comment on above: Performed By: #### P OCGLUC #### [facility] [address] [address] [address] Nan Jeffers Hemoglobin (Bld) [Mass/Vol] 10.8 g/dL Critically low 12.0-16.0 [facility] Comment on above: Performed By: #### P OCGLUC #### [facility] [address] [address] [address] Nan Jeffers IG # 0.22 10e3/ul Critically high 0.00-0.03 [facility] Comment on above: Performed By: #### P OCGLUC #### [facility] [address] [address] [address] Nan Jeffers IG % 1.6 % Critically high 0.0-0.5 [facility] Comment on above: Performed By: #### P OCGLUC #### [facility] [address] [address] [address] Nan Jeffers LYMPH # 2.1 103/ul Normal 1.2-3.8 [facility] Comment on above: Performed By: #### P OCGLUC #### [facility] [address] [address] [address] Nan Jeffers Lymphocytes/100 WBC (Bld) 15.3 % Critically low 20.5-60.0 [facility] Comment on above: Performed By: #### P OCGLUC #### [facility] [address] [address] [address] Nan Jeffers MANUAL DIFF REQ NO Normal [facility] Comment on above: Performed By: #### P OCGLUC #### [facility] [address] [place] [address] Dr. Nan Jeffers MCH (RBC) [Entitic mass] 28.1 pg Normal 26.7-34.0 [facility] Comment on above: Performed By: #### P OCGLUC #### [facility] [address] [address] [address] Nan Jeffers MCHC (RBC) [Mass/Vol] 32.6 g/dL Normal 29.9-35.2 [facility] Comment on above: Performed By: #### P OCGLUC #### [facility] [address] [address] [address] Nan Jeffers MCV (RBC) [Entitic vol] 86.0 fL Normal 81.0-99.0 [facility] Comment on above: Performed By: #### P OCGLUC #### [facility] [address] [address] [address] Nan Jeffers MONO # 1.2 103/ul Critically high 0.3-0.8 [facility] Comment on above: Performed By: #### P OCGLUC #### [facility] [address] [place] [address] Dr. Nan Jeffers Monocytes/100 WBC (Bld) 8.8 % Normal 1.7-12.0 [facility] Comment on above: Performed By: #### P OCGLUC #### [facility] [address] [address] [address] Nan Jeffers NEUT # 10.2 103/ul Critically high 1.4-6.5 [facility] Comment on above: Performed By: #### P OCGLUC #### [facility] [address] [address] [address] Nan Jeffers Neutrophils/100 WBC (Bld) 74.1 % Normal 43.0-75.0 [facility] Comment on above: Performed By: #### P OCGLUC #### [facility] [address] [address] [address] Nan Jeffers Platelet mean volume (Bld) [Entitic vol] 9.6 fL Normal 9.5-13.5 [facility] Comment on above: Performed By: #### P OCGLUC #### [facility] [address] [address] [address] Nan Jeffers PLT 254 103/ul Normal 150-[address] [facility] Comment on above: Performed By: #### P OCGLUC #### [facility] [address] [address] [address] Nan Jeffers RBC 3.85 106/ul Critically low 4.20-5.40 [facility] Comment on above: Performed By: #### P OCGLUC #### [facility] [address] [address] [address] Nan Jeffers WBC 13.8 103/ul Critically high 4.0-11.0 [facility] Comment on above: Performed By: #### P OCGLUC #### [facility] [address] [address] [address] Nan Jeffers POINT OF CARE GLUCOSEon Glucose [Mass/Vol] 317 mg/dL Critically high 74-106 [facility] Comment on above: Performed By: #### P OCGLUC #### [facility] [address] [address] [address] Nan Jeffers Glucose [Mass/Vol] 338 mg/dL Critically high 74-106 [facility] Comment on above: Performed By: #### P OCGLUC #### [facility] [address] [address] [address] Nan Jeffers PROF 14(COMP METB)on 023 Albumin [Mass/Vol] 3.2 g/dL Critically low 3.4-5.0 [facility] Comment on above: Performed By: #### P OCGLUC #### [facility] [address] [address] [address] Nan Jeffers Albumin/Globulin [Mass ratio] 1.3 {ratio} Normal [facility] Comment on above: Performed By: #### P OCGLUC #### [facility] [address] [address] [address] Nan Jeffers ALP [Catalytic activity/Vol] 56 U/L Normal 46-116 [facility] Comment on above: Performed By: #### P OCGLUC #### [facility] [address] [address] [address] Nan Jeffers ALT [Catalytic activity/Vol] 32 U/L Normal 14-59 [facility] Comment on above: Performed By: #### P OCGLUC #### [facility] [address] [address] [address] Nan Jeffers Anion gap [Moles/Vol] 14.9 mmol/L Normal [facility] Comment on above: Performed By: #### P OCGLUC #### [facility] [address] [address] [address] Nan Jeffers AST [Catalytic activity/Vol] 26 U/L Normal 15-37 [facility] Comment on above: Performed By: #### P OCGLUC #### [facility] [address] [address] [address] Nan Jeffers Bilirubin [Mass/Vol] 0.2 mg/dL Normal 0.2-1.0 [facility] Comment on above: Performed By: #### P OCGLUC #### [facility] [address] [address] [address] Nan Jeffers Calcium [Mass/Vol] 8.9 mg/dL Normal 8.5-10.1 [facility] Comment on above: Performed By: #### P OCGLUC #### [facility] [address] [address] [address] Nan Jeffers Chloride [Moles/Vol] 103 mmol/L Normal 98-107 [facility] Comment on above: Performed By: #### P OCGLUC #### [facility] [address] [address] [address] Nan Jeffers CO2 [Moles/Vol] 24.0 mmol/L Normal 21.0-32.0 [facility] Comment on above: Performed By: #### P OCGLUC #### [facility] [address] [address] [address] Nan Jeffers Creatinine [Mass/Vol] 0.84 mg/dL Normal 0.55-1.02 [facility] Comment on above: Performed By: #### P OCGLUC #### [facility] [address] [address] [address] Nan Jeffers EGFR-AF SPANISH >60 Normal >=[address] [facility] Comment on above: Performed By: #### P OCGLUC #### [facility] [address] [address] [address] Nan Jeffers EGFR-NON AF SPANISH >60 Normal >=60 [facility] Comment on above: Performed By: #### P OCGLUC #### [facility] [address] [address] [address] Nan Jeffers Globulin (S) [Mass/Vol] 2.4 g/dL Normal [facility] Comment on above: Performed By: #### P OCGLUC #### [facility] [address] [address] [address] Nan Jeffers Glucose [Mass/Vol] 291 mg/dL Critically high 74-106 [facility] Comment on above: Performed By: #### P OCGLUC #### [facility] [address] [address] [address] Nan Jeffers Potassium [Moles/Vol] 3.9 mmol/L Normal 3.5-5.1 [facility] Comment on above: Performed By: #### P OCGLUC #### [facility] [address] [address] [address] Nan Jeffers Protein [Mass/Vol] 5.6 g/dL Critically low 6.4-8.2 [facility] Comment on above: Performed By: #### P OCGLUC #### [facility] [address] [address] [address] Nan Jeffers Sodium [Moles/Vol] 138 mmol/L Normal 136-145 [facility] Comment on above: Performed By: #### P OCGLUC #### [facility] [address] [address] [address] Nan Jeffers Urea nitrogen [Mass/Vol] 18.0 mg/dL Normal 7.0-18.0 [facility] Comment on above: Performed By: #### P OCGLUC #### [facility] [address] [address] [address] Nan Jeffers Urea nitrogen/Creatinine [Mass ratio] 21.4 mg/mg Normal [facility] Comment on above: Performed By: #### P OCGLUC #### [facility] [address] [address] [address] Nan Jeffers CBC AUTO DIFFon 05-18-2022 BASO # 0.0 103/ul Normal 0.0-0.1 [facility] Comment on above: Performed By: #### C BC #### [facility] [address] [address] [address] Nan Jeffers Basophils/100 WBC (Bld) 0.3 % Normal 0.2-2.0 [facility] Comment on above: Performed By: #### C BC #### [facility] [address] [place] [address] Dr. Nan Jeffers EO # 0.0 103/ul Normal 0.0-0.7 [facility] Comment on above: Performed By: #### C BC #### [facility] [address] [place] [address] Dr. Nan Jeffers Eosinophils/100 WBC (Bld) 0.0 % Critically low 0.9-7.0 [facility] Comment on above: Performed By: #### C BC #### [facility] [address] [place] [address] Dr. Nan Jeffers Erythrocyte distribution width (RBC) [Ratio] 12.4 % Normal 11.0-15.0 [facility] Comment on above: Performed By: #### C BC #### [facility] [address] [place] [address] Dr. Nan Jeffers Hematocrit (Bld) [Volume fraction] 34.8 % Critically low 36.0-48.0 [facility] Comment on above: Performed By: #### C BC #### [facility] [address] [place] [address] Dr. Nan Jeffers Hemoglobin (Bld) [Mass/Vol] 11.3 g/dL Critically low 12.0-16.0 [facility] Comment on above: Performed By: #### C BC #### [facility] [address] [place] [address] Dr. Nan Jeffers IG # 0.08 10e3/ul Critically high 0.00-0.03 [facility] Comment on above: Performed By: #### C BC #### [facility] [address] [place] [address] Dr. Nan Jeffers IG % 1.1 % Critically high 0.0-0.5 [facility] Comment on above: Performed By: #### C BC #### [facility] [address] [place] [address] Dr. Nan Jeffers LYMPH # 1.5 103/ul Normal 1.2-3.[address] [facility] Comment on above: Performed By: #### C BC #### [facility] [address] [place] [address] Dr. Nan Jeffers Lymphocytes/100 WBC (Bld) 19.9 % Critically low 20.5-60.0 [facility] Comment on above: Performed By: #### C BC #### [facility] [address] [place] [address] Dr. Nan Jeffers MANUAL DIFF REQ NO Normal [facility] Comment on above: Performed By: #### C BC #### [facility] [address] [place] [address] Dr. Nan Jeffers MCH (RBC) [Entitic mass] 28.2 pg Normal 26.7-34.0 [facility] Comment on above: Performed By: #### C BC #### [facility] [address] [place] [address] Dr. Nan Jeffers MCHC (RBC) [Mass/Vol] 32.5 g/dL Normal 29.9-35.[address] [facility] Comment on above: Performed By: #### C BC #### [facility] [address] [place] [address] Dr. Nan Jeffers MCV (RBC) [Entitic vol] 86.8 fL Normal 81.0-99.[address] [facility] Comment on above: Performed By: #### C BC #### [facility] [address] [place] [address] Dr. Nan Jeffers MONO # 0.2 103/ul Critically low 0.3-0.8 [facility] Comment on above: Performed By: #### C BC #### [facility] [address] [place] [address] Dr. Nan Jeffers Monocytes/100 WBC (Bld) 3.2 % Normal 1.7-12.0 [facility] Comment on above: Performed By: #### C BC #### [facility] [address] [place] [address] Dr. Nan Jeffers NEUT # 5.6 103/ul Normal 1.4-6.5 [facility] Comment on above: Performed By: #### C BC #### [facility] [address] [place] [address] Dr. Nan Jeffers Neutrophils/100 WBC (Bld) 75.5 % Critically high 43.0-75.0 [facility] Comment on above: Performed By: #### C BC #### [facility] [address] [place] [address] Dr. Nan Jeffers Platelet mean volume (Bld) [Entitic vol] 9.7 fL Normal 9.5-13.5 [facility] Comment on above: Performed By: #### C BC #### [facility] [address] [place] [address] Dr. aNn Jeffers PLT 224 103/ul Normal 150-[address] [facility] Comment on above: Performed By: #### C BC #### [facility] [address] [place] [address] Dr. Nan Jeffers RBC 4.01 106/ul Critically low 4.20-5.40 [facility] Comment on above: Performed By: #### C BC #### [facility] [address] [place] [address] Dr. Nan Jeffers WBC 7.4 103/ul Normal 4.0-11.0 [facility] Comment on above: Performed By: #### C BC #### [facility] [address] [place], [place] [id number] Dr. Nan Jeffers CT CHEST WO CONon [...] by: REBEKAH HAMILTONH Date: 2022-05-18 11:21 Normal [facility] POINT OF CARE GLUCOSEon 03-0 Glucose [Mass/Vol] 206 mg/dL Critically high 74-106 [facility] Comment on above: Performed By: #### P OCGLUC #### [facility] [address] [place], [place] [address] Dr. Nan Jeffers Glucose [Mass/Vol] 262 mg/dL Critically high 74-106 [facility] Comment on above: Performed By: #### P OCGLUC #### [facility] [address] [place], [place] [address] Dr. Nan Jeffers Glucose [Mass/Vol] 383 mg/dL Critically high 74-106 [facility] Comment on above: Performed By: #### P OCGLUC #### [facility] [address] [address] [address] Nan Jeffers PROF 14(COMP METB)on 023 Albumin [Mass/Vol] 3.4 g/dL Normal 3.4-5.0 [facility] Comment on above: Performed By: #### C MP #### [facility] [address] [place] [address] Dr. Nan Jeffers Albumin/Globulin [Mass ratio] 1.2 {ratio} [facility] Comment on above: Performed By: #### C MP #### [facility] [address] [place] [address] Dr. Nan Jeffers ALP [Catalytic activity/Vol] 66 U/L Normal 46-116 [facility] Comment on above: Performed By: #### C MP #### [facility] [address] [place] [address] Dr. Nan Jeffers ALT [Catalytic activity/Vol] 34 U/L Normal 14-59 [facility] Comment on above: Performed By: #### C MP #### [facility] [address] [place] [address] Dr. Nan Jeffers Anion gap [Moles/Vol] 17.8 mmol/L [facility] Comment on above: Performed By: #### C MP #### [facility] [address] [place] [address] Dr. Nan Jeffers AST [Catalytic activity/Vol] 19 U/L Normal 15-37 [facility] Comment on above: Performed By: #### C MP #### [facility] [address] [place] [address] Dr. Nan Jeffers Bilirubin [Mass/Vol] 0.2 mg/dL Normal 0.2-1.0 [facility] Comment on above: Performed By: #### C MP #### [facility] [address] [place] [address] Dr. Nan Jeffers Calcium [Mass/Vol] 8.9 mg/dL Normal 8.5-10.1 [facility] Comment on above: Performed By: #### C MP #### [facility] [address] [address] [address] Nan Jeffers Chloride [Moles/Vol] 101 mmol/L Normal 98-107 [facility] Comment on above: Performed By: #### C MP #### [facility] [address] [address] [address] Nan Jeffers CO2 [Moles/Vol] 22.1 mmol/L Normal 21.0-32.0 [facility] Comment on above: Performed By: #### C MP #### [facility] [address] [address] [address] Nan Jeffers Creatinine [Mass/Vol] 1.26 mg/dL Critically high 0.55-1.02 [facility] Comment on above: Performed By: #### C MP #### [facility] [address] [address] [address] Nan Jeffers EGFR-AF SPANISH 52 mL/min/1.73m2 Critically low >=60 [facility] Comment on above: Performed By: #### C MP #### [facility] [address] [address] [address] Nan Jeffers EGFR-NON AF SPANISH 43 mL/min/1.73m2 Critically low >=60 [facility] Comment on above: Performed By: #### C MP #### [facility] [address] [address] [address] Nan Jeffers Globulin (S) [Mass/Vol] 2.9 g/dL [facility] Comment on above: Performed By: #### C MP #### [facility] [address] [address] [address] Nan Jeffers Glucose [Mass/Vol] 385 mg/dL Critically high 74-106 T [facility] Comment on above: Performed By: #### C MP #### [facility] [address] [address] [address] Nan Jeffers Potassium [Moles/Vol] 3.9 mmol/L Normal 3.5-5.1 [facility] Comment on above: Performed By: #### C MP #### [facility] [address] [address] [address] Nan Jeffers Protein [Mass/Vol] 6.3 g/dL Critically low 6.4-8.2 [facility] Comment on above: Performed By: #### C MP #### [facility] [address] [address] [address] Nan Jeffers Sodium [Moles/Vol] 137 mmol/L Normal 136-145 [facility] Comment on above: Performed By: #### C MP #### [facility] [address] [place] [address] Dr. Nan Jeffesr Urea nitrogen [Mass/Vol] 14.0 mg/dL Normal 7.0-18.0 [facility] Comment on above: Performed By: #### C MP #### [facility] [address] [place] [address] Dr. Nan Jeffers Urea nitrogen/Creatinine [Mass ratio] 11.1 mg/mg [facility] Comment on above: Performed By: #### C MP #### [facility] [address] [place] [address] Dr. Nan Jeffers BNPon 05-17-2022 Natriuretic peptide B (Bld) [Mass/Vol] 58.0 pg/mL Normal <=900.0 [facility] Comment on above: Performed By: #### P OCGLUC #### [facility] [address] [place] [address] Dr. Nan Jeffers CARDIAC CHIN ADMITon 023 CK [Catalytic activity/Vol] 244 U/L Critically high 26-192 [facility] Comment on above: Performed By: #### P OCGLUC #### [facility] [address] [place] [address] Dr. Nan Jeffers CK.MB [Mass/Vol] 0.96 ng/mL Normal <=3.60 [facility] Comment on above: Performed By: #### P OCGLUC #### [facility] [address] [place] [address] Dr. Nan Jeffers HSTROP 4.1 pg/mL Normal 4.0-51.3 [facility] Comment on above: Result Comment: CUT- OFF POINTS HAVE BEEN ESTABLISHED BASED ON THE FOURTH UNIVERSAL DEFINITIONS OF MYOCARDIAL INFARCTION. THE UPPER REFERENCE LIMIT (URL) OF TROPONIN, DEFINED THE 99TH PERCENTILE OF cTnI DISTRIBUTION IN A REFERENCE POPULATION, HAS BEEN CONFIRMED THE DECISION THRESHOLD FOR AL DIAGNOSIS. Performed By: #### P OCGLUC #### [facility] [address] [address] [address] Nan Jeffers LACIE 137 ng/mL Critically high 9-82 [facility] Comment on above: Performed By: #### P OCGLUC #### [facility] [address] [address] [address] Nan Jeffers CULTURE URINEon 05-17-2022 CULTURE URINE Culture Observations : NO GROWTH. Normal [facility] Comment on above: Performed By: #### P OCGLUC #### [facility] [address] [place] [address] Dr. Nan Jeffers Covid-19 PCR (CVDTB)on SARS-CoV-2 (COVID-19) RNA JACQUES+probe Ql (Unsp spec) Not detected Normal NOT DETECTED [facility] Comment on above: Result Comment: When diagnostic [...] for this test is supported by the Pantograph Operator of Health and Human Service's declaration that [...] used). Performed By: #### P OCGLUC #### [facility] [address] [place] [address] Dr. Nan Jeffers D-DIMERon 05-17-2022 D-DIMER 0.60 mg/L FEU Critically high <=0.59 [facility] Comment on above: Performed By: #### D DIM #### [facility] [address] [place] [address] Dr. Nan Jeffers D-DIMER COMMENTS SEE BELOW Normal [facility] Comment on above: Result Comment: Incr eases [...] hospitalization. Performed By: #### D DIM #### [facility] [address] [place] [address] Dr. Nan Jeffers LACTATE/LACTIC ACIDon 2022 Lactate [Moles/Vol] 1.7 mmol/L Normal 0.4-1.9 [facility] Comment on above: Performed By: #### P OCGLUC #### [facility] [address] [place] [address] Dr. Nan Jeffers LIPASEon 05-17-2022 Lipase [Catalytic activity/Vol] 82.0 U/L Normal 73.0-393.0 [facility] Comment on above: Performed By: #### P OCGLUC #### [facility] [address] [place] [address] Dr. Nan Jeffers POINT OF CARE GLUCOSEon Glucose [Mass/Vol] 337 mg/dL Critically high 74-106 [facility] Comment on above: Performed By: #### P OCGLUC #### [facility] [address] [place] [address] Dr. Nan Jeffers Glucose [Mass/Vol] 281 mg/dL Critically high 74-106 [facility] Comment on above: Performed By: #### P OCGLUC #### [facility] [address] [place] [address] Dr. Nan Jeffers PROF 14(COMP METB)on 023 Albumin [Mass/Vol] 3.4 g/dL Normal 3.4-5.0 [facility] Comment on above: Performed By: #### P OCGLUC #### [facility] [address] [place] [address] Dr. Nan Jeffers Albumin/Globulin [Mass ratio] 1.1 {ratio} [facility] Comment on above: Performed By: #### P OCGLUC #### [facility] [address] [address] [address] Nan Jeffers ALP [Catalytic activity/Vol] 64 U/L Normal 46-116 [facility] Comment on above: Performed By: #### P OCGLUC #### [facility] [address] [place] [address] Dr. Nan Jeffers ALT [Catalytic activity/Vol] 40 U/L Normal 14-59 [facility] Comment on above: Performed By: #### P OCGLUC #### [facility] [address] [place] [address] Dr. Nan Jeffers Anion gap [Moles/Vol] 10.1 mmol/L [facility] Comment on above: Performed By: #### P OCGLUC #### [facility] [address] [place] [address] Dr. Nan Jeffers AST [Catalytic activity/Vol] 20 U/L Normal 15-37 [facility] Comment on above: Performed By: #### P OCGLUC #### [facility] [address] [place] [address] Dr. Nan Jeffers Bilirubin [Mass/Vol] 0.4 mg/dL Normal 0.2-1.0 [facility] Comment on above: Performed By: #### P OCGLUC #### [facility] [address] [place] [address] Dr. Nan Jeffers Calcium [Mass/Vol] 9.2 mg/dL Normal 8.5-10.1 [facility] Comment on above: Performed By: #### P OCGLUC #### [facility] [address] [place] [address] Dr. Nan Jeffers Chloride [Moles/Vol] 104 mmol/L Normal 98-107 [facility] Comment on above: Performed By: #### P OCGLUC #### [facility] [address] [address] [address] Nan Jeffers CO2 [Moles/Vol] 31.8 mmol/L Normal 21.0-32.0 [facility] Comment on above: Performed By: #### P OCGLUC #### [facility] [address] [address] [address] Nan Jeffers Creatinine [Mass/Vol] 0.96 mg/dL Normal 0.55-1.02 [facility] Comment on above: Performed By: #### P OCGLUC #### [facility] [address] [address] [address] Nan Jeffers EGFR-AF SPANISH >60 Normal >=60 [facility] Comment on above: Performed By: #### P OCGLUC #### [facility] [address] [address] [address] Nan Jeffers EGFR-NON AF SPANISH 59 mL/min/1.73m2 Critically low >=60 [facility] Comment on above: Performed By: #### P OCGLUC #### [facility] [address] [address] [address] Nan Jeffers Globulin (S) [Mass/Vol] 3.1 g/dL Normal [facility] Comment on above: Performed By: #### P OCGLUC #### [facility] [address] [address] [address] Nan Jeffers Glucose [Mass/Vol] 189 mg/dL Critically high 74-106 [facility] Comment on above: Performed By: #### P OCGLUC #### [facility] [address] [address] [address] Nan Jeffers Potassium [Moles/Vol] 4.9 mmol/L Normal 3.5-5.1 [facility] Comment on above: Performed By: #### P OCGLUC #### [facility] [address] [address] [address] Nan Jeffers Protein [Mass/Vol] 6.5 g/dL Normal 6.4-8.2 [facility] Comment on above: Performed By: #### P OCGLUC #### [facility] [address] [place] [address] Dr. Nan Jeffers Sodium [Moles/Vol] 141 mmol/L Normal 136-145 [facility] Comment on above: Performed By: #### P OCGLUC #### [facility] [address] [place] [address] Dr. Nan Jeffers Urea nitrogen [Mass/Vol] 12.0 mg/dL Normal 7.0-18.0 [facility] Comment on above: Performed By: #### P OCGLUC #### [facility] [address] [place] [address] Dr. Nan Jeffers Urea nitrogen/Creatinine [Mass ratio] 12.5 mg/mg Normal [facility] Comment on above: Performed By: #### P OCGLUC #### [facility] [address] [place] [address] Dr. Nan Jeffers UA RANDOM W/MICROSCOPICon BACTERIA NONE SEEN Normal NONE SEEN [facility] Comment on above: Performed By: #### P OCGLUC #### [facility] [address] [place] [address] Dr. Nan Jeffers Bilirubin Ql (U) Negative Normal NEGATIVE [facility] Comment on above: Performed By: #### P OCGLUC #### [facility] [address] [place] [address] Dr. Nan Jeffers CAST NONE SEEN Normal NONE SEEN [facility] Comment on above: Performed By: #### P OCGLUC #### [facility] [address] [place] [address] Dr. Nan Jeffers Clarity (U) CLEAR Normal CLEAR [facility] Comment on above: Performed By: #### P OCGLUC #### [facility] [address] [place] [address] Dr. Nan Jeffers Color (U) LT. YELLOW Normal YELLOW [facility] Comment on above: Performed By: #### P OCGLUC #### [facility] [address] [place] [address] Dr. Nan Jeffers Crystals LM Nom (Urine sed) NONE SEEN Normal NONE SEEN [facility] Comment on above: Performed By: #### P OCGLUC #### [facility] [address] [address] [address] Nan Jeffers Epithelial cells LM Ql (Urine sed) RARE Normal NONE SEEN /RARE [facility] Comment on above: Performed By: #### P OCGLUC #### [facility] [address] [address] [address] Nan Jeffers Glucose Ql (U) 500 mg/dl Abnormal NEGATIVE [facility] Comment on above: Performed By: #### P OCGLUC #### [facility] [address] [address] [address] Nan Jeffers Hemoglobin Ql (U) Negative Normal NEGATIVE [facility] Comment on above: Performed By: #### P OCGLUC #### [facility] [address] [place] [address] Dr. Nan Jeffers Ketones Ql (U) Negative Normal NEGATIVE [facility] Comment on above: Performed By: #### P OCGLUC #### [facility] [address] [address] [address] Nan Jeffers LEUKOCYTES Negative Normal NEGATIVE [facility] Comment on above: Performed By: #### P OCGLUC #### [facility] [address] [address] [address] Nan Jeffers MUCOUS NONE SEEN Normal NONE SEEN [facility] Comment on above: Performed By: #### P OCGLUC #### [facility] [address] [address] [address] Nan Jeffers Nitrite Ql (U) Negative Normal NEGATIVE [facility] Comment on above: Performed By: #### P OCGLUC #### [facility] [address] [address] [address] Nan Jeffers pH (U) 5.5 [pH] Normal 5-[address] [facility] Comment on above: Performed By: #### P OCGLUC #### [facility] [address] [address] [address] Nan Jeffers RBC 0-2 Normal 0-[address] [facility] Comment on above: Performed By: #### P OCGLUC #### [facility] [address] [address] [address] Nan Jeffers SPEC GRAVITY <=1.005 Abnormal 1.005-<=1.025 [facility] Comment on above: Performed By: #### P OCGLUC #### [facility] [address] [address] [address] Nan Jeffers UA PROTEIN Negative Normal NEGATIVE/ TRACE [facility] Comment on above: Performed By: #### P OCGLUC #### [facility] [address] [address] [address] Nan Jeffers Urobilinogen Qn (U) 0.2 {Jenifer'U}/dL Normal 0.2 - 1. 0 [facility] Comment on above: Performed By: #### P OCGLUC #### [facility] [address] [place] [address] Dr. Nan Jeffers WBC NONE SEEN Normal NONE SEEN [facility] Comment on above: Performed By: #### P OCGLUC #### [facility] [address] [address] [address] Nan Jeffers XR ABD FLAT UP_PA [...] VIRAJ AUSTIN Date: 2022-05-17 14:[address] [facility] Covid-19 PCR (CVDTB)on 04-20 SARS-CoV-2 (COVID-19) RNA JACQUES+probe Ql (Unsp spec) Not detected Normal NOT DETECTED [facility] Comment on above: Result Comment: When diagnostic [...] for this test is supported by the Pantograph Operator of Health and Human Service's declaration that [...] used). Performed By: #### C VDTB #### [facility] [address] [place] [address] Dr. Nan Jeffers MG MAMM DX 3D RT CADon 03-03 MG MAMM DX 3D RT CAD Patient: JOSIE VELIZ I. Exam Date: 03/03/2022 : 1960 Gender:F Ordering : DR MARIA R GARCIA . Admission #: [id number] Family : Order #: [id number] CLICK HERE TO VIEW EXAM RADIOLOGY REPORT [...] bladder cancer at age 71. LOCATION: [facility] BREAST COMPOSITION: Scattered areas fibroglandular density. FINDINGS: [...] M.D. on 03/03/2022 at 14:[address] [facility] US BREAST RIGHT LIMITEDon US BREAST RIGHT LIMITED Patient: JOSIE VELIZ I. Exam Date: 03/03/2022 : 1960 Gender:F Ordering : DR MARIA R GARCIA . Admission #: [id number] Family : Order #: [id number] CLICK HERE TO VIEW EXAM RADIOLOGY REPORT [...] bladder cancer at age 71. LOCATION: [facility] BREAST COMPOSITION: Scattered areas fibroglandular density. FINDINGS: [...] M.D. on 03/03/2022 at 14:[address] [facility] US VAC ASST BX BREAST RT W C LIPon 08-05-2021 US VAC ASST BX BREAST RT W CLIP Begin Addendum #1 COLLECTED DATE/TIME: 07/29/2021 09:52 EDT Final Diagnosis Report for [facility], [place], [place] RIGHT BREAST 3 O'CLOCK MASS; BIOPSY: [...] 2. Pathology results are pending. Normal The [facility] MAMMO POST BIOPSY RIGHTon MAMMO POST BIOPSY RIGHT Patient: JOSIE VELIZ I. Exam Date: 07/29/2021 : 1960 Gender:F Ordering : DR MARIA R GARCIA . Admission #: [id number] Family : Order #: [id number] CLICK HERE TO VIEW EXAM RADIOLOGY REPORT [...] MD on 07/29/2021 at 10:17 Normal [facility] MAMM DIAGNOSTIC 3D TIGRE CA Don 07-22-2021 MG MAMM DIAGNOSTIC 3D TIGRE CAD Patient: JOSIE VELIZ I. Exam Date: 07/22/2021 : 1960 Gender:F Ordering : DR MARIA R GARCIA . Admission #: [id number] Family : Order #: [id number] CLICK HERE TO VIEW EXAM RADIOLOGY REPORT [...] bladder cancer at age 71. LOCATION: [facility] BREAST COMPOSITION: Scattered areas fibroglandular density. FINDINGS: [...] MD on 07/22/2021 at 13:[address] [facility] US BREAST RIGHT LIMITEDon US BREAST RIGHT LIMITED Patient: JOSIE VELIZ I. Exam Date: 07/22/2021 : 1960 Gender:F Ordering : DR MARIA R GARCIA . Admission #: [id number] Family : Order #: [id number] CLICK HERE TO VIEW EXAM RADIOLOGY REPORT [...] bladder cancer at age 71. LOCATION: [facility] BREAST COMPOSITION: Scattered areas fibroglandular density. FINDINGS: [...] MD on 07/22/2021 at 13:[address] [facility] Vital Signs Date Time Vital Sign Value Performing Clinician Chepei diana 06-22-2022 14:47-0400 Body height 170.2 cm Nevin Joseph PA-C Work Phone: [facility] 06-22-2022 14:47-0400 Body mass index (BMI) [Ratio] 31.32 kg/m2 Nevin Joseph PA-C Work Phone: [facility] 06-22-2022 14:47-0400 Body temperature 97 [degF] Nevin Joseph PA-C Work Phone: [facility] 06-22-2022 14:47-0400 Body weight 90.72 kg Nevin Joseph PA-C Work Phone: [facility] 06-08-2022 13:20-0400 Diastolic blood pressure 56 mm[Hg] Melodie Wilde MD Work Phone: [facility] 06-08-2022 13:20-0400 Heart rate 83 /min Melodie Wilde MD Work Phone: [facility] 06-08-2022 13:20-0400 Respiratory rate 18 /min Melodie Wilde MD Work Phone: [facility] 06-08-2022 13:20-0400 SaO2% (BldA) [Mass fraction] 95 % Melodie Wilde MD Work Phone: [facility] 06-08-2022 13:20-0400 Systolic blood pressure 116 mm[Hg] Melodie Wilde MD Work Phone: [facility] 06-08-2022 13:05-0400 Body temperature 97.3 [degF] Melodie Wilde MD Work Phone: [facility] 06-08-2022 11:12-0400 Body height 170.2 cm Melodie Wilde MD Work Phone: [facility] 06-08-2022 11:12-0400 Body mass index (BMI) [Ratio] 31.32 kg/m2 Melodie Wilde MD Work Phone: [facility] 06-08-2022 11:12-0400 Body weight 90.72 kg Melodie Wilde MD Work Phone: [facility] 05-30-2022 08:14-0400 Body height 170.2 cm Melodie Wilde MD Work Phone: [facility] 05-30-2022 08:14-0400 Body mass index (BMI) [Ratio] 31.32 kg/m2 Melodie Wilde MD Work Phone: [facility] 05-30-2022 08:14-0400 Body temperature 97.9 [degF] Melodie Wilde MD Work Phone: [facility] 05-30-2022 08: Body weight 90.72 kg Melodie Wilde MD Work Phone: [facility] Encounters Encounter Date Encounter Type Care Provider Facility Start: 06-22-2022 ambulatory NEVIN Katz [facility] Start: 06-22-2022 End: 06-22-2022 Postop follow up visit related to original px Nevin Katz Jake IZUQIERDO Work Phone: [facility] Comment on above: H/O excision of mass - Rt thumb IP jt mucous cyst (Primary Dx) Start: 06-08-2022 End: 06-08-2022 ambulatory MELODIE WILDE [facility] Start: 06-08-2022 End: 06-08-2022 Subsequent hospital visit by physician Melodie Wilde MD Work Phone: [facility] Comment on above: Mass of finger of ri ght hand Start: 05-31-2022 ambulatory WILMOT [facility] Start: 05-30-2022 ambulatory [facility] Start: 05-30-2022 End: 05-30-2022 Subsequent hospital visit by physician Melodie Wilde MD Work Phone: [facility] Comment on above: Arrived Start: 05-30-2022 End: 05-30-2022 Office outpatient new 45 minutes Melodie Wilde MD Work Phone: [facility] Comment on above: [...] Office Visit Orthopaedics Nevin Joseph PA-C [address] [place] [address] [facility] Start: 06-08-2022 End: 06-08-2022 Admission to same day surgery center 06/08/2022 Surgery Multispecialty Melodie Wilde MD [address] [place] [address] EXCISION SOFT TISSUE FINGER HAND *WALANT* rt [facility] Comment on above: EXCISION SOFT TISSUE FINGER HAND *WALANT* rt Start: 06-08-2022 Subsequent hospital visit by physician 06/08/2022 Hospital Encounter Multispecialty Melodie Wilde MD [address] [place] [address] Mass of finger of right hand [facility] Comment on above: Mass of finger of ri ght hand Start: 06-08-2022 End: 06-08-2022 Exc maxwell/vasc mal sft tiss hand/fngr subq <1.5cm [facility] Start: 04-05-2021 COVID-19 VACCINE (4 - Booster for Pfizer series) COVID-19 VACCINE (4 - Booster for Pfizer series) [facility] [employer] Start: 05-19-2009 Zoster vaccine hzv live for subcutaneous use ZOSTER (SHINGLES) VACCINE (1 of 2) [facility] Start: 05-19-2004 Screening for malignant neoplasm of colon COLORECTAL CANCER SCREENING DISCUSSION [facility] Start: 1999 Lipid panel LIPID SCREENING [facility] Start: 1999 Screening for malignant neoplasm of breast MAMMOGRAM SCREENING DISCUSSION [facility] Start: 05-19-1980 Screening for malignant neoplasm of cervix CERVICAL CANCER SCREENING DISCUSSION [facility] Start: 05-19-1978 Third diphtheria, tetanus and acellular pertussis (DTaP) vaccination TDAP (ADULT) [facility] Start: 05-19-1974 HIV screening HIV SCREENING DISCUSSI ON [facility] Start: 1960 Hepatitis C screening HEPATITI S C VIRUS SCREENING [facility] Start: 1960 Tetanus vaccination TETANUS [facility] XR Thumb - right Views XR THUMB RIGHT Imaging Routine Mass of finger, right 05/30/2022 8:28 AM EDT [facility] Work Phone: Payers Date Payer Category Payer Private Health Insurance [facility] [id number] 2021-Present [address] [address] [place] [address] [id number] 1960 Unknown [id number]. 593 1959 Unknown [id number] [id number]. 593 1959 Unknown [id number] 2.16.840.1.777149.3.579.2. 593 1959 Unknown [id number] 2.16.840.1.253121.3.579.2. 593 1959 Unknown [id number] 2.16.840.1.782305.3.579.2. 593 1959 Unknown [id number] 2.16.840.1.270735.3.579.2. 593 1959 Unknown [id number] 2.16.840.1.201727.3.579.2. 983 1959 Unknown [id number] 2.16.840.1.388826.3.579.2. 983 1959 Unknown [id number] 2.16.840.1.149340.3.579.2. 983 1959 Unknown [id number] 2.16.840.1.745593.3.579.2. 983 1959 Unknown [id number] [id number]. 983 1960 Private Health Insurance [id number] 1960 Self-pay [id number] 1960 Unknown [id number] Social History Date Type Detail Facility Start: 05-30-2022 Tobacco smoking status NHIS Never smoked tobacco [facility] Start: 05-30-2022 Tobacco use and exposure Smokeless tobacco non-user [facility] Start: 1960 Sex Assigned At Not on file [facility] Start: 05-29-2022 End: 06-08-2022 Exposure to SARS-CoV-2 (event) Not sure [facility] NEGATED: Highlighted rowStart: NINF History of tobacco use Passive smoker [facility] Medical Equipment Procedure Code Equipment Code Equipment Original Text Equi pment Identifier Dates Tests BS daily a nd as needed. [id number] Clinical Notes 05-30-2022 to 06-22-2022 Marilee Taveras [...] as needed basis. documented in this encounter [facility] 06-08-2022 Hospital Discharg e instructions Marita Figueroa [...] free to contact your physician by calling [phone] ([phone]). If it is after hours you can contact the manual control auger press operator doctor by calling [facility] at [phone]. Prescription refills will only be done during [...] next 24 hours. documented in this encounter [facility] 06-08-2022 Nurse Surgical operation note Patient transported to outpatient bay#7 via bed. Bed locked and lowered, rails up. Monitors reapplied vitals stable. Call light within reach. Family/friend at bedside. Report given to Marita MARADIAGA. [facility] 06-08-2022 Nurse Note Patient transported to outpatient bay#7 via bed. Bed locked and lowered, rails up. Monitors reapplied vitals stable. Call light within reach. Family/friend at bedside. Report given to Marita MARADIAGA. documented in this encounter [facility] 06-08-2022 Note Formatting of this n ote might be different from the original. DATE: 06/08/2022 Patient: Josie Veliz Pre-Op Dx: Mass of finger of right hand [R22.31] Post-Op Dx: Mass of finger of right hand [R22.31] Procedure: Procedure(s) (LRB): EXCISION SOFT TISSUE FINGER HAND *WALANT* rt (Right) Surgeon: Surgeon(s) and Role: * Melodie Wilde MD - Primary Dairy Scientist: * No surgical staff found * ANESTHESIA [...] stable condition, having tolerated the procedure well. [facility] 06-08-2022 Note Formatting of this n ote might be different from the original. DATE: 06/08/2022 Patient: Josie Veliz Pre-Op Dx: Mass of finger of right hand [R22.31] Post-Op Dx: Mass of finger of right hand [R22.31] Procedure: Procedure(s) (LRB): EXCISION SOFT TISSUE FINGER HAND *WALANT* rt (Right) Surgeon: Surgeon(s) and Role: * Melodie Wilde MD - Primary Dairy Scientist: * No surgical staff found * ANESTHESIA TYPE: * No anesthesia type entered * INTRAVENOUS FLUIDS: Per anesthesia record ESTIMATED BLOOD LOSS: Per anesthesia record Specimens: * No specimens in log * Implants: * No implants in log * COMPLICATIONS: * No complications entered in OR log * DISPOSITION: To the recovery room in stable condition [facility] 06-08-2022 Miscellaneous Notes Formattin g of this note might be different from the original. DATE: 06/08/2022 Patient: Josie Veliz Pre-Op Dx: Mass of finger of right hand [R22.31] Post-Op Dx: Mass of finger of right hand [R22.31] Procedure: Procedure(s) (LRB): EXCISION SOFT TISSUE FINGER HAND *WALANT* rt (Right) Surgeon: Surgeon(s) and Role: * Melodie Wilde MD - Primary Dairy Scientist: * No surgical staff found * ANESTHESIA [...] Role: * Melodie Wilde MD - Primary Dairy Scientist: * No surgical staff found * ANESTHESIA TYPE: * No anesthesia type entered * INTRAVENOUS FLUIDS: Per anesthesia record ESTIMATED BLOOD LOSS: Per anesthesia record Specimens: * No specimens in log * Implants: * No implants in log * COMPLICATIONS: * No complications entered in OR log * DISPOSITION: To the recovery room in stable condition documented in this encounter [facility] 06-08-2022 Attending History and physical note I [...] on the schedule in the near future. [facility] 06-08-2022 History and physical note I have [...] the near future. documented in this encounter [facility] 05-30-2022 History and physical note 05/30/22 Chief [...] on the schedule in the near future. [email or web address] Work Phone: 05-30-2022 History and physical note 05/30/22 Chief Complaint Patient presents with Right Thumb - Consult Nodule on Rt.thumb HPI: Gegier is here today in follow up of [...] the near future. documented in this encounter [facility] 05-30-2022 History of Presen t illness Narrative [...] for dysphoric mood. documented in this encounter [facility] Evaluation note Diagnosis Mass of finger, right- Primary Mass of finger of right hand Localized superficial swelling, mass, or lump [facility] Diagnosis Post-op pain- Primary Other acute postoperative pain [facility] Diagnosis H/O excision of mass- Rt thumb IP jt mucous cyst- Primary Personal history of surgery to other organs documented in this encounter [facility] Summary Purpose Family History No Family History Records FoundNo Family History Records Found Advance Directives No Advanced Directives Records FoundNo Advanced Directives Records Found Reason for Referral Specialty Diagnoses / Procedures Referred By Conttony powell Referred To Contact Diagnoses Mass of finger, right Procedures XR THUMB RIGHT Melodie Wilde MD [address] [place] [address] Referral ID Status Reason Start Date Expiration Date V isits Requested Visits Authorized [id number] New Request 05/22/2022 06/16/2023 1 1 Additional [...] Procedures XR THUMB RIGHT Melodie Wilde MD [address] [place] [address] Referral ID Status Reason Start Date Expiration Date V isits Requested Visits Authorized [id number] New Request 05/22/2022 06/16/2023 1 1 Reason Comments Consult Nodule on Rt.thumb Specialty Diagnoses / Procedures Referred By Paige powell Referred To Contact Diagnoses Mass of finger of right hand Mass of finger of right hand [R22.31] Procedures [place] EXC MAXWELL/VASC MAL SFT TISS HAND/FNGR SUBQ <1.5CM EXCISION SOFT TISSUE FINGER HAND Melodie Wilde MD [address] [place] [address] Referral ID Status Reason Start Date Expiration Date Visits Re quested Visits Authorized [id number] 05/31/2022 1 1 Reason Comments Follow-up S/p Right Hand Mass Excision(Thumb IP Mucous Cyst)/ OR: 06/08/22(2w)/ Pain Scale: 0/10 Post Op Visit S/p Right Hand Mass Excision(Thumb IP Mucous Cyst)/ OR: 06/08/22(2w)/ Pain Scale: 0/10 Care Teams (unrecognized sec tion and content) Flasher Adjuster Relationship Specialty Start Date End Date Maria R Garcia MD [address] [place] [address] PCP - General Family Medicine 04/04/22 Flasher Adjuster Relationship Specialty Start Date End Date Maria R Garcia MD [address] [place] [address] PCP - General Family Medicine 04/04/22 Flasher Adjuster Relationship Specialty Start Date End Date Maria R Garcia MD [address] [place] [address] PCP - General Family Medicine 04/04/22 Flasher Adjuster Relationship Specialty Start Date End Date Maria R Garcia MD [address] [place] [address] PCP - General Family Medicine 04/04/22 Scheduled [...] BE BASED ON THE PRIMARY CLINICAL RECORDS. [facility]. provides no warranty or guarantee of the accuracy or completeness of information in this document.
== END 2024-02-21 10:01 | disposition home or self-care (01) ==
LOC: MAMMO 10:00
PROVIDERS: PCP Family Medicine; Visit Provider Family Medicine
DX: Z12.31 Encounter for screening mammogram for malignant neoplasm of breast (principal); Z80.52 Family history of malignant neoplasm of bladder
CPT/HCPCS: 77063; 77067

== ENCOUNTER 2024-02-22 09:00 | Outpatient (OUT) | payer OTHER, SELFPAY ==
--- NOTE | 2024-02-22 09:03 | US_ITS ---
The [address] [address] Patient Name: JOSIE CABRERA MRN: [id number] date: 1960 Sex: F Assigned Patient Location: US Current Patient Location: US Accession/Order Number: [id number] Exam Date: 02/22/2024 09:05 Report Date: 02/22/2024 13:36 At the request of: MARIA R MARSHALL Procedure: US soft tissue head and neck EXAMINATION: US soft tissue head and neck HISTORY: Neck Mass R22.1 COMPARISON: No relevant comparison available. FINDINGS: Corresponding to patient's palpable lump is a 6.3 x 1.7 x 4.8 cm heterogeneous hypoechoic vascular mass which appears to be within the/partially replacing the right submandibular gland. US/US soft tissue head and neck IMPRESSION: 1. Large right submandibular gland mass of uncertain etiology corresponding to patient's palpable lump; suspicious for neoplasm. Electronically authenticated by: GREGORIA MILLER Date: 02/22/2024 13:36
== END 2024-02-22 09:01 | disposition home or self-care (01) ==
LOC: US 09:01
PROVIDERS: PCP Family Medicine; Visit Provider Family Medicine
DX: R22.1 Localized swelling, mass and lump, neck (principal)
CPT/HCPCS: 76536

== ENCOUNTER 2024-03-05 07:52 | Outpatient (OUT) | payer OTHER, SELFPAY ==
[2024-03-05 08:11] LABS: Estimated GFR (African America >60 (>=60 mL/min/1.73m^2); Estimated GFR (Non-African Ame 51 (>=60 mL/min/1.73m^2)
--- NOTE | 2024-03-05 08:57 | CT_ITS ---
[address] [address] Patient Name: JOSIE CABRERA MRN: [id number] date: 1960 Sex: F Assigned Patient Location: LAB Current Patient Location: Accession/Order Number: [id number] Exam Date: 03/05/2024 08:40 Report Date: 03/05/2024 11:53 At the request of: MARIA R MARSHALL Procedure: CT soft tissue neck wo/w con EXAMINATION: CT soft tissue neck wo/w con HISTORY: Neck Mass COMPARISON: Ultrasound soft tissue head and neck 02/22/2024 TECHNIQUE: Axial, Coronal, and Sagittal CT images created with IV contrast. Dose reduction techniques were achieved by using automated exposure control and/or adjustment of mA and/or kV according to patient size and/or use of iterative reconstruction technique. FINDINGS: NASOPHARYNX: No asymmetry of the fossae of Rosenmuller and torus tubarius. ORAL CAVITY: No visible mass. OROPHARYNX: No asymmetry of the facial and lingual tonsils. HYPOPHARYNX: No mass or other visible lesion. LARYNX: No mass or asymmetry of the vocal cords. SINUSES: No significant fluid or mucosal thickening. NECK GLANDS: Arising from versus displacing the right submandibular gland is a heterogeneous lobular mass 5.5 x 2.6 x 3.4 cm. LYMPH NODES: No pathological-appearing or enlarged lymph nodes. VASCULATURE: No suspicious abnormality. BONES: No significant osseous lesions. OTHER: No additional imaging findings. CT/CT soft tissue neck wo/w con IMPRESSION: 1. Nonspecific mass inferior to the right mandible 5.5 cm in maximum size which displaces versus arises from the right submandibular gland. 2. No lymphadenopathy or additional findings. 3. Ultrasound guided fine needle aspiration performed today. Electronically authenticated by: GREGORIA MILLER Date: 03/05/2024 11:53
== END 2024-03-05 07:53 | disposition home or self-care (01) ==
LOC: LAB 07:52
PROVIDERS: PCP Family Medicine; Visit Provider Family Medicine
DX: R22.1 Localized swelling, mass and lump, neck (principal)
CPT/HCPCS: 36415; 70492; 82565; Q9967

== ENCOUNTER 2024-03-05 08:04 | Day surgery (SDC) | payer OTHER, SELFPAY ==
--- NOTE | 2024-03-05 | US_ITS ---
[address] [address] Patient Name: JOSIE CABRERA MRN: [id number] date: 1960 Sex: F Assigned Patient Location: US Current Patient Location: US Accession/Order Number: [id number] Exam Date: 03/05/2024 08:08 Report Date: 03/05/2024 11:46 At the request of: MARIA R MARSHALL Procedure: US biopsy FNA EXAMINATION: US biopsy FNA HISTORY: Neck Mass, Abnormal US COMPARISON: CT soft tissue neck 03/05/2024 TECHNIQUE: After obtaining informed consent, an ultrasound-guided biopsy was performed in the usual sterile manner. FINDINGS: IMAGING: Ultrasound-guided fine-needle aspiration BIOPSY NEEDLE: 25-gauge; 3 separate passes SPECIMEN TYPE, #, LOCATION: Right submandibular mass anterior lateral to the submandibular gland, possibly arising from the submandibular salivary gland. MEDICATION: 1% buffered lidocaine for local anesthesia COMPLICATIONS: None. LABORATORY: Pending OTHER: Negative. US/US biopsy FNA IMPRESSION: Uneventful ultrasound finding aspiration. The patient was instructed to obtain follow up care and biopsy results from the referring physician. Electronically authenticated by: GREGORIA MILLER Date: 03/05/2024 11:46
[2024-03-05] MEDS: LIDOCAINE HCL 10 ML, SODIUM BICARBONATE 1 MEQ INJ (09:38)
[2024-03-05 13:22] VITALS: BMI 30.5
--- NOTE | 2024-03-05 13:25 | PC.NURSE ---
0900: BP 140/77, HR: 81, Resps. 16, Sao2:96%
== END 2024-03-05 13:36 | disposition home or self-care (01) ==
LOC: US 08:04
PROVIDERS: Radiology Diagnostic Radiology; PCP Family Medicine; Visit Provider Family Medicine
DX: R22.1 Localized swelling, mass and lump, neck (principal)
CPT/HCPCS: 10005; 36415; 70492; 82565; 88173; Q9967

== ENCOUNTER 2024-03-22 10:16 | Outpatient (OUT) | payer OTHER, SELFPAY ==
--- NOTE | 2024-03-22 10:19 | US_ITS ---
The [address] [address] Patient Name: JOSIE CABRERA MRN: [id number] date: 1960 Sex: F Assigned Patient Location: US Current Patient Location: Accession/Order Number: [id number] Exam Date: 03/22/2024 10:25 Report Date: 03/24/2024 06:24 At the request of: KELLY ASKEW Procedure: US soft tissue head and neck EXAMINATION: US soft tissue head and neck HISTORY: NECK MASS R22.1 ; follow-up right submandibular mass; fine-needle aspiration 03/05/2024 COMPARISON: Ultrasound soft tissue head and neck 02/22/2024, fine-needle aspiration 03/05/2024, CT neck soft tissue 03/05/2024 FINDINGS: Within the right submandibular soft tissues is a hypoechoic heterogeneous geographic shaped mass 5.8 x 4.6 x 1.8 cm. Color Doppler demonstrates internal blood flow. US/US soft tissue head and neck IMPRESSION: 1. Stable appearance of the nonspecific mass within the right submandibular region. Electronically authenticated by: GREGORIA MILLER Date: 03/24/2024 06:24
[2024-03-22 11:08] LABS: Erythrocyte Sedimentation Rate 6 mm/hr (<=30)
[2024-03-22 11:38] LABS: C Reactive Protein <0.50 mg/dL (<=0.50)
== END 2024-03-22 10:17 | disposition home or self-care (01) ==
LOC: US 10:16
PROVIDERS: PCP Family Medicine; Visit Provider Otolaryngology
DX: R22.1 Localized swelling, mass and lump, neck (principal)
CPT/HCPCS: 36415; 76536; 85652; 86140

== ENCOUNTER 2024-04-04 12:45 | Outpatient (OUT) | payer OTHER, SELFPAY ==
--- NOTE | 2024-04-04 12:47 | US_ITS ---
The [address] [address] Patient Name: JOSIE CABRERA MRN: [id number] date: 1960 Sex: F Assigned Patient Location: US Current Patient Location: US Accession/Order Number: [id number] Exam Date: 04/04/2024 12:50 Report Date: 04/07/2024 15:34 At the request of: MARIA R MARSHALL Procedure: US soft tissue head and neck EXAM: US soft tissue head and neck 04/04/2024 COMPARISON STUDY: Right neck ultrasound 03/22/2024. CT of the neck with and without contrast 03/05/2024. HISTORY: neck mass R22.1 TECHNIQUE: Multiple sagittal and transverse images of the right neck were obtained. Grayscale and color Doppler type images were obtained. FINDINGS: Cystic and solid appearing midpole nodule within the right lobe of the thyroid has sharply demarcated margins. This appears slightly lobulated with no obvious internal calcifications measuring 1.2 x 0.9 x 1.1 cm. Similar-appearing lesion was noted on the prior CT study. A lobulated solid mixed echogenic mass associated with the right submandibular gland is again identified. This measures 5.3 x 2.1 x 3.4 cm. On the prior ultrasound this was measured at 5.8 x 4.6 x 1.8 cm. This was also seen on the prior CT neck study from 03/05/2024. US/US soft tissue head and neck IMPRESSION: 1. Stable dominant lobulated mixed echogenic right submandibular mass. 2. Stable cystic and solid appearing nodule involving midpole region of the right lobe of the thyroid as described. Electronically authenticated by: REBEKAH ARMENDAIRZ Date: 04/07/2024 15:34
--- OUTSIDE RECORDS SUMMARY | 2024-04-04 12:56 | XMS_ITS | CCD ---
Author Organization [facility] Care Team Providers Care Owner [employer] Name Role Phone JOANNA ., DR HECK Admitting Unavailable HOY ., DR HECK Attending Unavailable HOY ., DR HECK Primary Care Unavailable HOY ., DR HECK Consulting Unavailable PAUL, DR RYAN Hager Consulting Unavailable HOY ., DR HECK Admitting Unavailable HOY ., DR HECK Attending Unavailable HOY ., DR HECK Primary Care Unavailable HOY ., DR HECK Consulting Unavailable HOY ., DR HECK Admitting Unavailable HOY ., DR HECK Attending Unavailable HOY ., DR HECK Primary Care Unavailable HOY ., DR HECK Consulting Unavailable JALEN, DR DALLIN Hammond Consulting Unavailable HOY ., DR HECK Admitting Unavailable HOY ., DR HECK Attending Unavailable HOY ., DR HECK Primary Care Unavailable HOY ., DR HECK Consulting Unavailable VIRAJ AUSTIN Consulting Unavailable REBEKAH ARMENDARIZ Consulting Unavailable HOY ., DR HECK Admitting Unavailable HOY ., DR HECK Attending Unavailable HOY ., DR HECK Primary Care Unavailable HOY ., DR HECK Consulting Unavailable [place], DR DALLIN Hammond Consulting Unavailable HOY ., DR HECK Admitting Unavailable HOY ., DR HECK Attending Unavailable HOY ., DR HECK Primary Care Unavailable Maria R Garcia MD Primary Care Provider [phone] PRAVEENA GARCIALAS M Primary Care Unavailable NEVIN JOSEPH Attending [...] WILDE Admitting Unavailable MELODIE WILDE Attending Unavailable Maria R Garcia Attending Unavailable Maria R Garcia Admitting Unavailable Maria R Garcia MD Primary Care Provider [phone] Unavailable Primary Care Provider UnavailDallin Peace MD Unavailable OLIVER ASKEWARY Torres Attending Unavailable DALLIN GONZALEZ Admitting Unavailable DALLIN GONZALEZ Attending Unavailable DALLIN GONZALEZ Attending Unavailable PROVIDER, UNKNOWN Admitting Unavailable MARIA R GARCIA. Referring Unavailable Allergies Allergy Classification Reported Allergen(s) Allergy Type Date of Onset Reaction(s) Facility (2 sources) levoFLOXacin Drug Allergy 08-26-2013 [facility] (5 sources) busPIRone Drug Allergy 08-28-2023 [facility] (5 sources) levoFLOXacin Drug Allergy 08-28-2023 [facility] Medications Current Medications Medication Drug Class(es) Dates [...] MG tablet atorvastatin 20 mg oral tablet (9 sources) HMG-CoA Reductase Inhibitor Start: 03-10-2024 take 1 tablet by mouth at bedtime atorvastatin (Lipitor) 20 MG tablet Take 20 mg by mouth at bedtime 03/10/2024 Active Start: 04-25-2022 take 1 tablet by trini th every twenty-four hours Atorvastatin 20 MG tablet [...] DR tablet escitalopram 20 mg oral tablet (9 sources) Serotonin Reuptake Inhibitor Start: 03-10-2024 take 1 tablet by mouth in the morning escitalopram (Lexapro) 20 MG tablet Take 20 mg by mouth in the morning. 03/10/2024 Active Start: 04-25-2022 take 1 tablet by trini th once daily in the morning escitalopram 20 MG tablet Take 1 tablet by mouth daily every morning. 0 04/25/2022 Active fluticasone propionate 0.05 mg/actuat metered dose nasal spray (9 sources) Corticosteroid fluticasone (Caden nase) 50 MCG/ACT nasal spray 1 (one) time each day at the same time. Active fluticasone 50 M CG/ACT Suspension nasal spray 1 spray by Nasal route daily. 0 Active lamoTRIgine 25 mg oral tablet (9 sources) Mood Stabilizer, Anti-epileptic Agent Start: 03-29-2022 [...] MORNING FOR BLOOD PRESSURE 0 03/25/2022 Active LORazepam 0.5 mg oral tablet (5 sources) Benzodiazepine Start: 03-03-2024 take 1 tablet by mouth once daily LORazepam (Ativan) 0.5 MG tablet Take 0.5 mg by mouth Daily 03/03/2024 Active 24 hr metFORMIN hydrochloride 500 mg extended release oral tablet (9 sources) Biguanide Start: 03-03-2024 take 1 tablet by mouth every twenty-four hours in the morning metFORMIN XR (Glucophage-XR) 500 MG 24 hr tablet Take 1,000 mg by mouth in the morning and 1,000 mg before bedtime. 03/03/2024 Active Start: 05-15-2022 take 2 tablets by mo uth once daily metFORMIN-XR 500 MG Tab SR 24 HR Take 2 tablets by mouth daily. 0 05/15/2022 Active temazepam 30 mg oral capsule (9 sources) Benzodiazepine Start: 05-31-2023 take 1 capsule by mouth once daily at bedtime temazepam (Restoril) 30 MG capsule TAKE 1 CAPSULE (30 MG) BY MOUTH EVERY DAY AT BEDTIME 05/31/2023 Active Start: 05-04-2022 take 1 capsule by [facility] at bedtime temazepam 30 MG capsule Take 1 capsule by mouth at bedtime. 0 05/04/2022 Active tiZANidine 4 mg oral tablet (5 sources) Central alpha-2 Adrenergic Agonist Start: 04-19-2023 take 2 tablets by mouth at bedtime tiZANidine (Zanaflex) 4 MG tablet TAKE 2 TABLETS BY MOUTH AT BEDTIME FOR 15 DAYS 04/19/2023 Active traZODone hydrochloride 100 mg oral tablet (9 sources) Serotonin Reuptake Inhibitor take 2 tablets by mouth once daily at bedtime traZODone (Desyrel) 100 MG tablet TAKE 2 TABLETS BY MOUTH EVERY DAY AT BEDTIME Active take 1 tablet by mouth once hortencia y traZODone 100 MG tablet Take 1 tablet [...] [TYPE 2 DM W/HYPERGLYCEMIA] Onset: 05-24-2022 Chronic Diseases of mouth; excluding dental (8 sources) Mass of salivary gland; 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: [Other diseases of salivary glands] Onset: 03-21-2024 03-21-2024 Episodic E Codes: Adverse effects of medical drugs [...] Onset: 07-22-2021 Episodic Other aftercare (1 source) [facility] (current) use of aspirin; 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: [[facility] CURRENT USE OF ASPIRIN] Onset: 05-24-2022 Episodic Other aftercare (1 source) [facility] (current) use of oral hypoglycemic drugs; 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 She acknowledges understanding of date, time and location. Ophelia Blue RN Normal [facility] Delivery Specialist Authentication Interface Message Text Patient called to say that last night she found another mass about 3 inches lower on her throat than the previous mass she is having surgery to remove. The patient would like to speak with a nurse or the provider to know what they should do about this new development. Please call the patient back as soon as possible to speak with them. Thank you. Normal [facility] ALL SED RATEon 03-22-2024 [facility] SED RATE 6 [facility] are [facility] Health[facility] e Progress Noteson 03-21-2024 Delivery Specialist Authentication Interface Message Text CC: Chief Complaint Patient presents with lump on right side of neck New patient, to establish relationship HPI: Josie Veliz is a 63 year old female referred by family medicine for evaluation of a right-side neck mass that's been present since about a week before . She doesn't think it's grown. No pain reported. It doesn't swell when she eats, and she hasn't noticed any sores in her mouth. No other symptoms that she's aware of. Patient is also not aware of any autoimmune processes. She's had the mass biopsied before; the report showed atypia of undetermined significance. PMHx: Diabetes No past surgical history on file. Allergies Patient has no known allergies. Medications No current outpatient medications on file. No current facility-administered medications for this visit. Family History The patient's family history is not on file.. Social History: Social History Socioeconomic History Marital status: Unknown Tobacco Use Smoking status: Never Passive exposure: Never Smokeless tobacco: Never Review of Systems - as per HPI, otherwise the balance of 10 systems is negative Physical Exam Vitals: 03/21/24 1451 BP: 117/45 Pulse: 82 Temp: 98 ???F (36.7 ???C) SpO2: 96% General apperance: WN/WD adult in no apparent distress, sitting in a chair Ability to communicate: normal voice without hoarseness Head and Face: Atraumatic, normocephalic; skin with no masses or lesions; sinuses nontender to palpation, face symmetric with normal movement Salivary Glands: No enlargement or tenderness of parotid or left submandibular gland Ears:External ears are intact without any lesions or masses. Eyes: EOM Intact, sclera anicteric, no conjunctival injection. Nose: External nose midline Oral Cavity: I can palpate the mass, and it's a bit tender when doing so, but everything looks normal otherwise. Oropharynx: the soft palate, tonsils, and lateral pharyngeal castellano are without lesions or masses Neck: 5cm mass of right submandibular triangle. Feels like it's coming from the gland, but hard to tell. No surrounding adenopathy. CV: No clubbing/cyanosis/edema in hands Respiration: Breathing comfortably, no stridor or stertor Neuro: A AND Ox3, Cranial nerves 2-12 intact and symmetric. Normal affect. Outside CT reviewed Approximately 5 cm mass involving right submandibular, with no obvious adenopathy. Fairly well-circumscribed. Assessment/Recommendati ons: Josie Veliz is a 63 year old female who presents today for: 1. Submandibular gland mass - I reviewed the path report she showed me, which listed atypia of undetermined significance. - Discussed repeat biopsy, but I think excision is fine. - I told her I'll send it to pathology at the time of surgery. - If it's positive for cancer and high-grade, we can consider neck dissection at the time. - Otherwise, I'd just close up and wait for the final path. - She's good with that plan. We discussed risks and benefits, and she'd like to move forward. - I have a copy of the scan on my phone. Electronically signed by Vahid duganibing for and in the presence of Dr. Dallin Gonzalez on 03/21/2024 at 3:08 PM All medical record entries made by the scribe were at my direction and personally dictated by me. I have reviewed and edited the record and confirm that the note above accurately reflects all work, treatment, procedures, and medical decision making performed by me. Dallin Gonzalez MD Normal [facility] 03-05-2024 L --- Specimen: [id number] Received: 03/06/24 Status: YULY Ashby Num: [id number] Spec Type: Cytology Subm Dr: Maria R Garcia MD Tissues: A FNA SLIDES NOPATH (RIGHT SUBMANDIBULAR MASS) Procedures: HE/2, Cyto Int and Re, PAPSTN/6 Age/ Patient Sex Location Account Attending Physician Josie Veliz I 63/F [facility] [id number] Maria R Garcia MD SPEC NUM: [id number] RECD: 03/06/24 STATUS: YULY ASHBY NUM: [id number] JOSE: 03/05/24- SUBM DR: Maria R Garcia MD ENTERED: 03/06/[address] [facility] [address]: Ryan Moreira MD SPEC TYPE: Cytology DEPT: [facility] ENTERED BY: [id number] RECV BY: [id number] ORDERED: HE/2, Cyto Int and Re, PAPSTN/6 ORDERED: HE/2, Cyto Int and Re, PAPSTN/6 Pathological Diagnosis Right submandibular mass, FNA cytology: -Many small lymphoid cells are intermixed with some background RBC and rare small clusters of small ovoid nuclei with scant cytoplasm, otherwise without lymphoid atypia or other distinct epithelial element observed -The lymphoid cells can be associated with Warthin tumor, lymphoepithelial cyst, or just intraglandular lymph node. The possibility of low-grade atypical lymphoproliferative disorder also cannot be completely excluded -The overall findings is most suggestive of atypia of undetermined significance, or the c ategory 3 Mannie system, requiring clinical correlation, or removal of the lesion for further assessment Clinical Information Right submandibular mass Gross Description Received is 30 ml clear colorless fixed fluid for cytology said to have been obtained as Right Submandibular Mass. Cell block preparations are prepared for microscopic examination. Specimen: [id number] Received: 03/06/24 Status: YULY Isma Num: [id number] Spec Type: Cytology Subm Dr: Maria R Garcia MD Tissues: A FNA SLIDES NOPATH (RIGHT SUBMANDIBULAR MASS) Procedures: HE/2, Cyto Int and Re, PAPSTN/6 Patient: Josie Veliz I [id number] (Continued) Specimen: [id number] Received: 03/06/24 (Continued) Gross Description (Continued) Signed (signature on file) Zeina Jeffers MD 03/12/24 1432 Specimen: [id number] Received: 03/06/24 Status: YULY Ashby Num: [id number] Spec Type: Cytology Subm Dr: Marai R Garcia MD Tissues: A FNA SLIDES NOPATH (RIGHT SUBMANDIBULAR MASS) Procedures: HE/2, Cyto Int and Re, PAPSTN/6 Patient: KerenJosie Martin [id number] (Continued) Specimen: [id number] Received: 03/06/24 (Continued) Gross Description (Continued) Also received are 6 spray fixed smeared slides for pap for microscopic examination. (CC/nh) Microscopic Description Microscopic examinations are performed supporting the above interpretation CPT Codes 25567 Specimen: [id number] Received: 03/06/24 Status: YULY Ashby Num: [id number] Spec Type: Cytology Subm Dr: Maria R Garcia MD Tissues: A FNA SLIDES NOPATH (RIGHT SUBMANDIBULAR MASS) Procedures: HE/2, Cyto Int and Re, PAPSTN/6 Patient: Josie Veliz I [id number] (Continued) Signed (signature on file) Zeina Jeffers MD 03/12/24 1432 [facility] CBC AUTO DIFFon 05-19-2022 BASO # 0.0 103/ul Normal 0.0-0.1 [facility] Comment on above: Performed By: #### P OCGLUC #### [facility] [address] [address] [address] Nan Jeffers Basophils/100 WBC (Bld) 0.2 % Normal 0.2-2.0 [facility] Comment on above: Performed By: #### P OCGLUC #### [facility] [address] [address] [address] Nan Jeffers EO # 0.0 103/ul Normal 0.0-0.7 [facility] Comment on above: Performed By: #### P OCGLUC #### [facility] [address] [address] [address] Nan Jeffers Eosinophils/100 WBC (Bld) 0.0 % Critically low 0.9-7.0 [facility] Comment on above: Performed By: #### P OCGLUC #### [facility] [address] [address] [address] Nan Jeffers Erythrocyte distribution width (RBC) [Ratio] 12.9 % Normal 11.0-15.0 [facility] Comment on above: Performed By: #### P OCGLUC #### [facility] [address] [address] [address] Nan Jeffers Hematocrit (Bld) [Volume fraction] 33.1 % Critically low 36.0-48.0 [facility] Comment on above: Performed By: #### P OCGLUC #### [facility] [address] [address] [address] Nan Jeffers Hemoglobin (Bld) [Mass/Vol] 10.8 g/dL Critically low 12.0-16.0 [facility] Comment on above: Performed By: #### P OCGLUC #### [facility] [address] [address] [address] Nan Jeffers IG # 0.22 10e3/ul Critically high 0.00-0.03 [facility] Comment on above: Performed By: #### P OCGLUC #### [facility] [address] [address] [address] Nan Jeffers IG % 1.6 % Critically high 0.0-0.5 [facility] Comment on above: Performed By: #### P OCGLUC #### [facility] [address] [address] [address] Nan Jeffers LYMPH # 2.1 103/ul Normal 1.2-3.8 [facility] Comment on above: Performed By: #### P OCGLUC #### [facility] [address] [address] [address] Nan Jeffers Lymphocytes/100 WBC (Bld) 15.3 % Critically low 20.5-60.0 [facility] Comment on above: Performed By: #### P OCGLUC #### [facility] [address] [place] [address] Dr. Nan Jeffers MANUAL DIFF REQ NO Normal [facility] Comment on above: Performed By: #### P OCGLUC #### [facility] [address] [place] [address] Dr. Nan Jeffers MCH (RBC) [Entitic mass] 28.1 pg Normal 26.7-34.0 [facility] Comment on above: Performed By: #### P OCGLUC #### [facility] [address] [place] [address] Dr. Nan Jeffers MCHC (RBC) [Mass/Vol] 32.6 g/dL Normal 29.9-35.2 [facility] Comment on above: Performed By: #### P OCGLUC #### [facility] [address] [place] [address] Dr. Nan Jeffers MCV (RBC) [Entitic vol] 86.0 fL Normal 81.0-99.0 [facility] Comment on above: Performed By: #### P OCGLUC #### [facility] [address] [place] [address] Dr. Nan Jeffers MONO # 1.2 103/ul Critically high 0.3-0.8 [facility] Comment on above: Performed By: #### P OCGLUC #### [facility] [address] [address] [address] Nan Jeffers Monocytes/100 WBC (Bld) 8.8 % Normal 1.7-12.0 [facility] Comment on above: Performed By: #### P OCGLUC #### [facility] [address] [address] [address] Nan Jeffers NEUT # 10.2 103/ul Critically high 1.4-6.5 [facility] Comment on above: Performed By: #### P OCGLUC #### [facility] [address] [address] [address] Nan Jeffers Neutrophils/100 WBC (Bld) 74.1 % Normal 43.0-75.0 [facility] Comment on above: Performed By: #### P OCGLUC #### [facility] [address] [place] [address] Dr. Nan Jeffers Platelet mean volume (Bld) [Entitic vol] 9.6 fL Normal 9.5-13.5 [facility] Comment on above: Performed By: #### P OCGLUC #### [facility] [address] [address] [address] Nan Jeffers PLT 254 103/ul Normal 150-450 [facility] Comment on above: Performed By: #### P OCGLUC #### [facility] [address] [address] [address] Nan Jeffers RBC 3.85 106/ul Critically low 4.20-5.40 [facility] Comment on above: Performed By: #### P OCGLUC #### [facility] [address] [address] [address] Nan Jeffers WBC 13.8 103/ul Critically high 4.0-11.0 [facility] Comment on above: Performed By: #### P OCGLUC #### [facility] [address] [place] [address] Dr. Nan Jeffers POINT OF CARE GLUCOSEon 03-0 Glucose [Mass/Vol] 317 mg/dL Critically high 74-106 [facility] Comment on above: Performed By: #### P OCGLUC #### [facility] [address] [address] [address] Nan Jeffers Glucose [Mass/Vol] 338 mg/dL Critically high 74-106 [facility] Comment on above: Performed By: #### P OCGLUC #### [facility] [address] [address] [address] Nan Jeffers PROF 14(COMP METB)on 023 Albumin [Mass/Vol] 3.2 g/dL Critically low 3.4-5.0 [facility] Comment on above: Performed By: #### P OCGLUC #### [facility] [address] [address] [address] Nan Jeffers Albumin/Globulin [Mass ratio] 1.3 {ratio} Normal [facility] Comment on above: Performed By: #### P OCGLUC #### [facility] [address] [address] [address] Nan Jeffers ALP [Catalytic activity/Vol] 56 U/L Normal 46-116 [facility] Comment on above: Performed By: #### P OCGLUC #### [facility] [address] [address] [address] Nan Jeffers ALT [Catalytic activity/Vol] 32 U/L Normal 14-59 [facility] Comment on above: Performed By: #### P OCGLUC #### [facility] [address] [address] [address] Nan Jeffers Anion gap [Moles/Vol] 14.9 mmol/L Normal [facility] Comment on above: Performed By: #### P OCGLUC #### [facility] [address] [address] [address] Nan Jeffers AST [Catalytic activity/Vol] 26 U/L Normal 15-37 [facility] Comment on above: Performed By: #### P OCGLUC #### [facility] [address] [address] [address] Nan Jeffers Bilirubin [Mass/Vol] 0.2 mg/dL Normal 0.2-1.0 [facility] Comment on above: Performed By: #### P OCGLUC #### [facility] [address] [address] [address] Nan Jeffers Calcium [Mass/Vol] 8.9 mg/dL Normal 8.5-10.1 [facility] Comment on above: Performed By: #### P OCGLUC #### [facility] [address] [address] [address] Nan Jeffers Chloride [Moles/Vol] 103 mmol/L Normal 98-107 [facility] Comment on above: Performed By: #### P OCGLUC #### [facility] [address] [address] [address] Nan Jeffers CO2 [Moles/Vol] 24.0 mmol/L Normal 21.0-32.0 [facility] Comment on above: Performed By: #### P OCGLUC #### [facility] [address] [place] [address] Dr. Nan Jeffers Creatinine [Mass/Vol] 0.84 mg/dL Normal 0.55-1.02 [facility] Comment on above: Performed By: #### P OCGLUC #### [facility] [address] [address] [address] Nan Jeffers EGFR-AF HONDURAN >60 Normal >=60 [facility] Comment on above: Performed By: #### P OCGLUC #### [facility] [address] [address] [address] Nan Jeffers EGFR-NON AF HONDURAN >60 Normal >=60 [facility] Comment on above: Performed By: #### P OCGLUC #### [facility] [address] [address] [address] Nan Jeffers Globulin (S) [Mass/Vol] 2.4 g/dL Normal [facility] Comment on above: Performed By: #### P OCGLUC #### [facility] [address] [address] [address] Nan Jeffers Glucose [Mass/Vol] 291 mg/dL Critically high 74-106 [facility] Comment on above: Performed By: #### P OCGLUC #### [facility] [address] [address] [address] Nan Jeffers Potassium [Moles/Vol] 3.9 mmol/L Normal 3.5-5.1 [facility] Comment on above: Performed By: #### P OCGLUC #### [facility] [address] [address] [address] Nan Jeffers Protein [Mass/Vol] 5.6 g/dL Critically low 6.4-8.2 [facility] Comment on above: Performed By: #### P OCGLUC #### [facility] [address] [place] [address] Dr. Nan Jeffers Sodium [Moles/Vol] 138 mmol/L Normal 136-145 [facility] Comment on above: Performed By: #### P OCGLUC #### [facility] [address] [place] [address] Dr. Nan Jeffers Urea nitrogen [Mass/Vol] 18.0 mg/dL Normal 7.0-18.0 [facility] Comment on above: Performed By: #### P OCGLUC #### [facility] [address] [place] [address] Dr. Nan Jeffers Urea nitrogen/Creatinin e [Mass ratio] 21.4 mg/mg Normal [facility] Comment on above: Performed By: #### P OCGLUC #### [facility] [address] [place] [address] Dr. Nan Jeffers CBC AUTO DIFFon 05-18-2022 BASO # 0.0 103/ul Normal 0.0-0.1 [facility] Comment on above: Performed By: #### C BC #### [facility] [address] [place] [address] Dr. Nan Jeffers Basophils/100 WBC (Bld) 0.3 % Normal 0.2-2.0 [facility] Comment on above: Performed By: #### C BC #### [facility] [address] [place] [address] Dr. Nan Jeffers EO # 0.0 103/ul Normal 0.0-0.7 [facility] Comment on above: Performed By: #### C BC #### [facility] [address] [address] [address] Nan Jeffers Eosinophils/100 WBC (Bld) 0.0 % Critically low 0.9-7.0 [facility] Comment on above: Performed By: #### C BC #### [facility] [address] [place] [address] Dr. Nan Jeffers Erythrocyte distribution width (RBC) [Ratio] 12.4 % Normal 11.0-15.0 [facility] Comment on above: Performed By: #### C BC #### [facility] [address] [place] [address] Dr. Nan Jeffers Hematocrit (Bld) [Volume fraction] 34.8 % Critically low 36.0-48.0 [facility] Comment on above: Performed By: #### C BC #### [facility] [address] [place] [address] Dr. Nan Jeffers Hemoglobin (Bld) [Mass/Vol] 11.3 g/dL Critically low 12.0-16.0 [facility] Comment on above: Performed By: #### C BC #### [facility] [address] [place] [address] Dr. Nan Jeffers IG # 0.08 [id number]/ul Critically high 0.00-0.03 [facility] Comment on above: Performed By: #### C BC #### [facility] [address] [place] [address] Dr. Nan Jeffers IG % 1.1 % Critically high 0.0-0.5 [facility] Comment on above: Performed By: #### C BC #### [facility] [address] [place] [address] Dr. Nan Jeffers LYMPH # 1.5 103/ul Normal 1.2-3.8 [facility] Comment on above: Performed By: #### C BC #### [facility] [address] [place] [address] Dr. Nan Jeffers Lymphocytes/100 WBC (Bld) 19.9 % Critically low 20.5-60.0 [facility] Comment on above: Performed By: #### C BC #### [facility] [address] [address] [address] Nan Jeffers MANUAL DIFF REQ NO Normal [facility] Comment on above: Performed By: #### C BC #### [facility] [address] [place] [address] Dr. Nan Jeffers MCH (RBC) [Entitic mass] 28.2 pg Normal 26.7-34.0 [facility] Comment on above: Performed By: #### C BC #### [facility] [address] [place] [address] Dr. Nan Jeffers MCHC (RBC) [Mass/Vol] 32.5 g/dL Normal 29.9-35.2 [facility] Comment on above: Performed By: #### C BC #### [facility] [address] [place] [address] Dr. Nan Jeffers MCV (RBC) [Entitic vol] 86.8 fL Normal 81.0-99.0 [facility] Comment on above: Performed By: #### C BC #### [facility] [address] [place] [address] Dr. Nan Jeffers MONO # 0.2 103/ul Critically low 0.3-0.[address] [facility] Comment on above: Performed By: #### C BC #### [facility] [address] [place] [address] Dr. Nan Jeffers Monocytes/100 WBC (Bld) 3.2 % Normal 1.7-12.0 [facility] Comment on above: Performed By: #### C BC #### [facility] [address] [place] [address] Dr. Nan Jeffers NEUT # 5.6 103/ul Normal 1.4-6.5 [facility] Comment on above: Performed By: #### C BC #### [facility] [address] [place] [address] Dr. Nan Jeffers Neutrophils/100 WBC (Bld) 75.5 % Critically high 43.0-75.0 [facility] Comment on above: Performed By: #### C BC #### [facility] [address] [address] [address] Nan Jeffers Platelet mean volume (Bld) [Entitic vol] 9.7 fL Normal 9.5-13.5 [facility] Comment on above: Performed By: #### C BC #### [facility] [address] [place] [address] Dr. Nan Jeffers PLT 224 103/ul Normal 150-450 [facility] Comment on above: Performed By: #### C BC #### [facility] [address] [address] [address] Nan Jeffers RBC 4.01 106/ul Critically low 4.20-5.40 [facility] Comment on above: Performed By: #### C BC #### [facility] [address] [address] [address] Nan Jeffers WBC 7.4 103/ul Normal 4.0-11.0 [facility] Comment on above: Performed By: #### C BC #### [facility] [address] [place] [address] CHEST WO CONon [...] involving the right lower lobe may represent infectious/inflammatory bronchiolitis. Early mild cylindrical bronchiectatic changes involving the lower lobes are noted. 2. Minor biapical and bibasilar atelectatic/fibrotic type changes without overt edema, failure, or pneumonia. 3. Hepatic steatosis. Cholecystectomy. Electronically authenticated by: REBEKAH HAMILTONH Date: 2022-05-18 11:21 Normal [facility] POINT OF CARE GLUCOSEon Glucose [Mass/Vol] 206 mg/dL Critically high 74-106 [facility] Comment on above: Performed By: #### P OCGLUC #### [facility] [address] [place] [address] Dr. Nna Jeffers Glucose [Mass/Vol] 262 mg/dL Critically high 74-106 [facility] Comment on above: Performed By: #### P OCGLUC #### [facility] [address] [address] [address] Nan Jeffers Glucose [Mass/Vol] 383 mg/dL Critically high -106 [facility] Comment on above: Performed By: #### P OCGLUC #### [facility] [address] [address] [address] Nan Jeffers PROF 14(COMP METB)on 023 Albumin [Mass/Vol] 3.4 g/dL Normal 3.4-5.0 [facility] Comment on above: Performed By: #### C MP #### [facility] [address] [address] [address] Nan Jeffers Albumin/Globulin [Mass ratio] 1.2 {ratio} Normal [facility] Comment on above: Performed By: #### C MP #### [facility] [address] [address] [address] Nan Jeffers ALP [Catalytic activity/Vol] 66 U/L Normal 46-116 [facility] Comment on above: Performed By: #### C MP #### [facility] [address] [address] [address] Nan Jeffers ALT [Catalytic activity/Vol] 34 U/L Normal 14-59 [facility] Comment on above: Performed By: #### C MP #### [facility] [address] [address] [address] Nan Jeffers Anion gap [Moles/Vol] 17.8 mmol/L Normal [facility] Comment on above: Performed By: #### C MP #### [facility] [address] [address] [address] Nan Jeffers AST [Catalytic activity/Vol] 19 U/L Normal 15-37 [facility] Comment on above: Performed By: #### C MP #### [facility] [address] [place] [address] Dr. Nan Jeffers Bilirubin [Mass/Vol] 0.2 mg/dL Normal 0.2-1.0 [facility] Comment on above: Performed By: #### C MP #### [facility] [address] [place] [address] Dr. Nan Jeffers Calcium [Mass/Vol] 8.9 mg/dL Normal 8.5-10.1 [facility] Comment on above: Performed By: #### C MP #### [facility] [address] [place] [address] Dr. Nan Jeffers Chloride [Moles/Vol] 101 mmol/L Normal 98-107 [facility] Comment on above: Performed By: #### C MP #### [facility] [address] [address] [address] Nan Jeffers CO2 [Moles/Vol] 22.1 mmol/L Normal 21.0-32.0 [facility] Comment on above: Performed By: #### C MP #### [facility] [address] [place] [address] Dr. Nan Jeffers Creatinine [Mass/Vol] 1.26 mg/dL Critically high 0.55-1.02 [facility] Comment on above: Performed By: #### C MP #### [facility] [address] [address] [address] Nan Jeffers EGFR-AF HONDURAN 52 mL/min/1.73m2 Critically low >=60 [facility] Comment on above: Performed By: #### C MP #### [facility] [address] [address] [address] Nan Jeffers EGFR-NON AF HONDURAN 43 mL/min/1.73m2 Critically low >=60 [facility] Comment on above: Performed By: #### C MP #### [facility] [address] [address] [address] Nan Jeffers Globulin (S) [Mass/Vol] 2.9 g/dL Normal [facility] Comment on above: Performed By: #### C MP #### [facility] [address] [address] [address] Nan Jeffers Glucose [Mass/Vol] 385 mg/dL Critically high 74-106 [facility] Comment on above: Performed By: #### C MP #### [facility] [address] [address] [address] Nan Jeffers Potassium [Moles/Vol] 3.9 mmol/L Normal 3.5-5.1 [facility] Comment on above: Performed By: #### C MP #### [facility] [address] [address] [address] Nan Jeffers Protein [Mass/Vol] 6.3 g/dL Critically low 6.4-8.2 [facility] Comment on above: Performed By: #### C MP #### [facility] [address] [address] [address] Nan Jeffers Sodium [Moles/Vol] 137 mmol/L Normal 136-145 [facility] Comment on above: Performed By: #### C MP #### [facility] [address] [address] [address] Nan Jeffers Urea nitrogen [Mass/Vol] 14.0 mg/dL Normal 7.0-18.0 [facility] Comment on above: Performed By: #### C MP #### [facility] [address] [address] [address] Nan Jeffers Urea nitrogen/Creatinin e [Mass ratio] 11.1 mg/mg Normal [facility] Comment on above: Performed By: #### C MP #### [facility] [address] [place] [address] Dr. Nan Jeffers BNPon 05-17-2022 Natriuretic peptide B (Bld) [Mass/Vol] 58.0 pg/mL Normal <=900.0 [facility] Comment on above: Performed By: #### P OCGLUC #### [facility] [address] [place] [address] Dr. Nan Jeffers CARDIAC CHIN ADMITon 023 CK [Catalytic activity/Vol] 244 U/L Critically high 26-192 [facility] Comment on above: Performed By: #### P OCGLUC #### [facility] [address] [place] [address] Dr. Nan Jeffers CK.MB [Mass/Vol] 0.96 ng/mL Normal <=3.60 [facility] Comment on above: Performed By: #### P OCGLUC #### [facility] [address] [place] [address] Dr. Nan Jeffers HSTROP 4.1 pg/mL Normal 4.0-51.3 [facility] Comment on above: Result Comment: CUT- OFF POINTS HAVE BEEN ESTABLISHED BASED ON THE FOURTH UNIVERSAL DEFINITIONS OF MYOCARDIAL INFARCTION. THE UPPER REFERENCE LIMIT (URL) OF TROPONIN, DEFINED THE 99TH PERCENTILE OF cTnI DISTRIBUTION IN A REFERENCE POPULATION, HAS BEEN CONFIRMED THE DECISION THRESHOLD FOR [place] DIAGNOSIS. Performed By: #### P OCGLUC #### [facility] [address] [place] [address] Dr. Nan Jeffers LACIE 137 ng/mL Critically high 9-82 [facility] Comment on above: Performed By: #### P OCGLUC #### [facility] [address] [place] [address] Dr. Nan Jeffers CULTURE URINEon 05-17-2022 CULTURE URINE Culture Observations : NO GROWTH. Normal [facility] Comment on above: Performed By: #### P OCGLUC #### [facility] [address] [place] [address] Dr. Nan Jeffers Covid-19 PCR (CVDTB)on SARS-CoV-2 (COVID-19) RNA JACQUES+probe Ql (Unsp spec) Not detected Normal NOT DETECTED [facility] Comment on above: Result Comment: When diagnostic [...] for this test is supported by the [place] of Health and Human Service's declaration that [...] used). Performed By: #### P OCGLUC #### [facility] [address] [place] [address] Dr. Nan Jeffers D-DIMERon 05-17-2022 D-DIMER 0.60 mg/L FEU Critically high <=0.59 [facility] Comment on above: Performed By: #### D DIM #### [facility] [address] [place] [address] Dr. Nan Jeffers D-DIMER COMMENTS SEE BELOW Normal [facility] Comment on above: Result Comment: Incr [...] hospitalization. Performed By: #### D DIM #### [facility] [address] [place] [address] Dr. Nan Jeffers LACTATE/LACTIC ACIDon 2022 Lactate [Moles/Vol] 1.7 mmol/L Normal 0.4-1.9 [facility] Comment on above: Performed By: #### P OCGLUC #### [facility] [address] [place] [address] Dr. aNn Jeffers LIPASEon 05-17-2022 Lipase [Catalytic activity/Vol] 82.0 U/L Normal 73.0-393.0 [facility] Comment on above: Performed By: #### P OCGLUC #### [facility] [address] [place] [address] Dr. Nan Jeffers POINT OF CARE GLUCOSEon Glucose [Mass/Vol] 337 mg/dL Critically high 74-106 [facility] Comment on above: Performed By: #### P OCGLUC #### [facility] [address] [place] [address] Dr. Nan Jeffers Glucose [Mass/Vol] 281 mg/dL Critically high 74-106 [facility] Comment on above: Performed By: #### P OCGLUC #### [facility] [address] [place] [address] Dr. Nan Jeffers PROF 14(COMP METB)on 023 Albumin [Mass/Vol] 3.4 g/dL Normal 3.4-5.0 [facility] Comment on above: Performed By: #### P OCGLUC #### [facility] [address] [place] [address] Dr. Nan Jeffers Albumin/Globulin [Mass ratio] 1.1 {ratio} Normal [facility] Comment on above: Performed By: #### P OCGLUC #### [facility] [address] [place] [address] Dr. Nan Jeffers ALP [Catalytic activity/Vol] 64 U/L Normal 46-116 [facility] Comment on above: Performed By: #### P OCGLUC #### [facility] [address] [place] [address] Dr. Nan Jeffers ALT [Catalytic activity/Vol] 40 U/L Normal 14-59 [facility] Comment on above: Performed By: #### P OCGLUC #### [facility] [address] [address] [address] Nan Jeffers Anion gap [Moles/Vol] 10.1 mmol/L Normal [facility] Comment on above: Performed By: #### P OCGLUC #### [facility] [address] [address] [address] Nan Jeffers AST [Catalytic activity/Vol] 20 U/L Normal 15-37 [facility] Comment on above: Performed By: #### P OCGLUC #### [facility] [address] [address] [address] Nan Jeffers Bilirubin [Mass/Vol] 0.4 mg/dL Normal 0.2-1.0 [facility] Comment on above: Performed By: #### P OCGLUC #### [facility] [address] [address] [address] Nan Jeffers Calcium [Mass/Vol] 9.2 mg/dL Normal 8.5-10.1 [facility] Comment on above: Performed By: #### P OCGLUC #### [facility] [address] [place] [address] Dr. Nan Jeffers Chloride [Moles/Vol] 104 mmol/L Normal 98-107 [facility] Comment on above: Performed By: #### P OCGLUC #### [facility] [address] [address] [address] Nan Jeffers CO2 [Moles/Vol] 31.8 mmol/L Normal 21.0-32.0 [facility] Comment on above: Performed By: #### P OCGLUC #### [facility] [address] [address] [address] Nan Jeffers Creatinine [Mass/Vol] 0.96 mg/dL Normal 0.55-1.02 [facility] Comment on above: Performed By: #### P OCGLUC #### [facility] [address] [address] [address] Nan Jeffers EGFR-AF HONDURAN >60 Normal >=60 [facility] Comment on above: Performed By: #### P OCGLUC #### [facility] [address] [address] [address] Nan Jeffers EGFR-NON AF HONDURAN 59 mL/min/1.73m2 Critically low >=60 [facility] Comment on above: Performed By: #### P OCGLUC #### [facility] [address] [address] [address] Nan Jeffers Globulin (S) [Mass/Vol] 3.1 g/dL Normal [facility] Comment on above: Performed By: #### P OCGLUC #### [facility] [address] [address] [address] Nan Jeffers Glucose [Mass/Vol] 189 mg/dL Critically high 74-106 [facility] Comment on above: Performed By: #### P OCGLUC #### [facility] [address] [address] [address] Nan Jeffers Potassium [Moles/Vol] 4.9 mmol/L Normal 3.5-5.1 [facility] Comment on above: Performed By: #### P OCGLUC #### [facility] [address] [address] [address] Nan Jeffers Protein [Mass/Vol] 6.5 g/dL Normal 6.4-8.2 [facility] Comment on above: Performed By: #### P OCGLUC #### [facility] [address] [address] [address] Nan Jeffers Sodium [Moles/Vol] 141 mmol/L Normal 136-145 [facility] Comment on above: Performed By: #### P OCGLUC #### [facility] [address] [address] [address] Nan Jeffers Urea nitrogen [Mass/Vol] 12.0 mg/dL Normal 7.0-18.0 [facility] Comment on above: Performed By: #### P OCGLUC #### [facility] [address] [address] [address] Nan Jeffers Urea nitrogen/Creatinin e [Mass ratio] 12.5 mg/mg Normal [facility] Comment on above: Performed By: #### P OCGLUC #### [facility] [address] [place] [address] Dr. Nan Jeffers UA RANDOM W/MICROSCOPICon BACTERIA NONE SEEN Normal NONE SEEN [facility] Comment on above: Performed By: #### P OCGLUC #### [facility] [address] [place] [address] Dr. Nan Jeffers Bilirubin Ql (U) Negative Normal NEGATIVE [facility] Comment on above: Performed By: #### P OCGLUC #### [facility] [address] [place] [address] Dr. Nan Jeffers CAST NONE SEEN Normal NONE SEEN [facility] Comment on above: Performed By: #### P OCGLUC #### [facility] [address] [place] [address] Dr. Nan Jeffers Clarity (U) CLEAR Normal CLEAR [facility] Comment on above: Performed By: #### P OCGLUC #### [facility] [address] [place] [address] Dr. Nan Jeffers Color (U) LT. YELLOW Normal YELLOW [facility] Comment on above: Performed By: #### P OCGLUC #### [facility] [address] [place] [address] Dr. Nan Jeffers Crystals LM Nom (Urine sed) NONE SEEN Normal NONE SEEN [facility] Comment on above: Performed By: #### P OCGLUC #### [facility] [address] [place] [address] Dr. Nan Jeffers Epithelial cells LM Ql (Urine sed) RARE Normal NONE SEEN /RARE [facility] Comment on above: Performed By: #### P OCGLUC #### [facility] [address] [place] [address] Dr. Nan Jeffers Glucose Ql (U) 500 mg/dl Abnormal NEGATIVE [facility] Comment on above: Performed By: #### P OCGLUC #### [facility] [address] [place] [address] Dr. Nan Jeffers Hemoglobin Ql (U) Negative Normal NEGATIVE [facility] Comment on above: Performed By: #### P OCGLUC #### [facility] [address] [address] [address] Nan Jeffers Ketones Ql (U) Negative Normal NEGATIVE [facility] Comment on above: Performed By: #### P OCGLUC #### [facility] [address] [address] [address] Nan Jeffers LEUKOCYTES Negative Normal NEGATIVE [facility] Comment on above: Performed By: #### P OCGLUC #### [facility] [address] [address] [address] Nan Jeffers MUCOUS NONE SEEN Normal NONE SEEN [facility] Comment on above: Performed By: #### P OCGLUC #### [facility] [address] [address] [address] Nan Jeffers Nitrite Ql (U) Negative Normal NEGATIVE [facility] Comment on above: Performed By: #### P OCGLUC #### [facility] [address] [place] [address] Dr. Nan Jeffers pH (U) 5.5 [pH] Normal 5-9 [facility] Comment on above: Performed By: #### P OCGLUC #### [facility] [address] [place] [address] Dr. Nan Jeffers RBC 0-2 Normal 0-2 [facility] Comment on above: Performed By: #### P OCGLUC #### [facility] [address] [place] [address] Dr. Nan Jeffers SPEC GRAVITY <=1.005 Abnormal 1.005-<=1.025 [facility] Comment on above: Performed By: #### P OCGLUC #### [facility] [address] [place] [address] Dr. Nan Jeffers UA PROTEIN Negative Normal NEGATIVE/ TRACE [facility] Comment on above: Performed By: #### P OCGLUC #### [facility] [address] [place] [address] Dr. Nan Jeffers Urobilinogen Qn (U) 0.2 {Jenifer'U}/dL Normal 0.2 - 1.0 [facility] Comment on above: Performed By: #### P OCGLUC #### [facility] [address] [place], [place] [address] Dr. Nan Jeffers WBC NONE SEEN Normal NONE SEEN [facility] Comment on above: Performed By: #### P OCGLUC #### [facility] [address] [place], [place] [address] Dr. Nan Jeffers XR ABD FLAT UP_PA [...] VIRAJ [place] Date: 2022-05-17 14:45 Normal [facility] Covid-19 PCR (CVDTBH)on 04-20 SARS-CoV-2 (COVID-19) RNA JACQUES+probe Ql (Unsp spec) Not detected Normal NOT DETECTED [facility] Comment on above: Result Comment: When diagnostic [...] for this test is supported by the [employer] of Health and Human Service's declaration [...] longer be used). Performed By: #### C VDTBH #### [facility] [address] [address] [address] Nan Jeffers MG MAMM DX 3D RT CADon 03-03 MG MAMM DX 3D RT CAD Patient: JOSIE VELIZ I. Exam Date: 03/03/2022 : 1960 Gender:F Ordering : DR MARIA R GARCIA . Admission #: [id number] Family : Order #: [id number] CLICK HERE TO VIEW EXAM RADIOLOGY REPORT [...] bladder cancer at age 71. LOCATION: [facility] BREAST COMPOSITION: Scattered areas fibroglandular density. FINDINGS: [...] M.D. on 03/03/2022 at 14:03 Normal [facility] US BREAST RIGHT LIMITEDon US BREAST RIGHT LIMITED Patient: JOSIE VELIZ I. Exam Date: 03/03/2022 : 1960 Gender:F Ordering : DR MARIA R GARCIA . Admission #: [id number] Family : Order #: [id number] CLICK HERE TO VIEW EXAM RADIOLOGY REPORT [...] bladder cancer at age 71. LOCATION: [facility] BREAST COMPOSITION: Scattered areas fibroglandular density. FINDINGS: [...] M.D. on 03/03/2022 at 14:03 Normal [facility] US VAC ASST BX BREAST RT W C LIPon 08-05-2021 US VAC ASST BX BREAST RT W CLIP Begin Addendum #1 COLLECTED DATE/TIME: 07/29/2021 09:52 EDT Final Diagnosis Report for [facility] [place] [place] RIGHT BREAST 3 O'CLOCK MASS; BIOPSY: [...] 2. Pathology results are pending. Normal [facility] MAMMO POST BIOPSY RIGHTon MAMMO POST BIOPSY RIGHT Patient: JOSIE VELIZ I. Exam Date: 07/29/2021 : 1960 Gender:F Ordering : DR MARIA R GARCIA . Admission #: [id number] Family : Order #: [id number] CLICK HERE TO VIEW EXAM RADIOLOGY REPORT PROCEDURE: MAMMOGRAM POST BIOPSY IMAGES COMPARISON: MAMM DIAGNOSTIC 3D TIGRE CAD, 07/22/2021. INDICATIONS: [...] MD on 07/29/2021 at 10:17 Normal [facility] MG MAMM DIAGNOSTIC 3D TIGRE CA Don 07-22-2021 MG MAMM DIAGNOSTIC 3D TIGRE CAD Patient: JOSIE VELIZ I. Exam Date: 07/22/2021 : 1960 Gender:F Ordering : DR MARIA R GARCIA . Admission #: [id number] Family : Order #: [id number] CLICK HERE TO VIEW EXAM RADIOLOGY REPORT PROCEDURE: MAMMOGRAM DIAGNOSTIC 3D BILATERAL CAD, 07/22/2021, 12:53 ULTRASOUND BREAST RIGHT LIMITED, 07/22/2021, 13:37 COMPARISON: MAMM SCREEN TIGRE W CAD, 05/14/2018. INDICATIONS: Lump in right breast Calculator Name NCI Breast Cancer Risk Assessment Tool 5 Year Breast Cancer Risk 1.50% Lifetime Breast Cancer Risk 6.80% Personal Breast Cancer No Personal Ovarian Cancer No Treatments None Family Cancers Father with bladder cancer at age 72. LOCATION: [facility] BREAST COMPOSITION: Scattered areas fibroglandular density. FINDINGS: [...] MD on 07/22/2021 at 13:49 Normal [facility] US BREAST RIGHT LIMITEDon US BREAST RIGHT LIMITED Patient: JOSIE VELIZ I. Exam Date: 07/22/2021 : 1960 Gender:F Ordering : DR MARIA R GARCIA . Admission #: [id number] Family : Order #: [id number] CLICK HERE TO VIEW EXAM RADIOLOGY REPORT [...] bladder cancer at age 71. LOCATION: [facility] BREAST COMPOSITION: Scattered areas fibroglandular density. FINDINGS: [...] Bunch MD on 07/22/2021 at 13:49 Normal [facility] Vital Signs Date Time Vital Sign Value Performing Clinician Facility 03-21-2024 14:51-0500 Body temperature 98.01 [degF] Dallin Gonzalez MD Work Phone: [facility] 03-21-2024 14:51-0500 Body weight 89.31 kg Dallin Gonzalez MD Work Phone: [facility] 03-21-2024 14:51-0500 Diastolic blood pressure 45 mm[Hg] Dallin Gonzalez MD Work Phone: [facility] 03-21-2024 14:51-0500 Heart rate 82 /min Dallin Gonzalez MD Work Phone: [facility] 03-21-2024 14:51-0500 SaO2% (BldA) [Mass fraction] 96 % Dallin Gonzalez MD Work Phone: [facility] 03-21-2024 14:51-0500 Systolic blood pressure 117 mm[Hg] Dallin Gonzalez MD Work Phone: [facility] 03-21-2024 09:47-0500 Body height 170.2 cm Grace Askew MD Work Phone: [facility] 03-21-2024 09:47-0500 Body mass index (BMI) [Ratio] 30.7 kg/m2 Grace Askew MD Work Phone: [facility] 03-21-2024 09:47-0500 Body weight 88.91 kg Grace Askew MD Work Phone: [facility] 03-21-2024 09:47-0500 Diastolic blood pressure 80 mm[Hg] Grace Askew MD Work Phone: [facility] 03-21-2024 09:47-0500 Systolic blood pressure 132 mm[Hg] Grace Askew MD Work Phone: [facility] 06-22-2022 14:47-0400 Body height 170.2 cm Nevinjayce Joseph PA-C Work Phone: [facility] 06-22-2022 14:47-0400 Body mass index (BMI) [Ratio] 31.32 kg/m2 Nevin Joseph PA-C Work Phone: [facility] 06-22-2022 14:47-0400 Body temperature 97 [degF] Nevin [place] PA-C Work Phone: [facility] 06-22-2022 14:47-0400 Body weight 90.72 kg Nevin Ulrichen PA-C Work Phone: [facility] 06-08-2022 13:20-0400 Diastolic blood pressure 56 mm[Hg] Melodie Wilde MD Work Phone: [facility] 06-08-2022 13:20-0400 Heart rate 83 /min Melodie Wilde MD Work Phone: [facility] 06-08-2022 13:20-0400 Respiratory rate 18 /min Melodie Wilde MD Work Phone: [facility] 06-08-2022 13:20-0400 SaO2% (BldA) [Mass fraction] 95 % Melodie Wilde MD Work Phone: [facility] 06-08-2022 13:20-0400 Systolic blood pressure 116 mm[Hg] Melodie Wilde MD Work Phone: [facility] 06-08-2022 13:05-0400 Body temperature 97.3 [degF] Melodie Wilde MD Work Phone: [facility] 06-08-2022 11:12-0400 Body height 170.2 cm Melodie Wilde MD Work Phone: [facility] 06-08-2022 11:12-0400 Body mass index (BMI) [Ratio] 31.32 kg/m2 Melodie Wilde MD Work Phone: [facility] 06-08-2022 11:12-0400 Body weight 90.72 kg Melodie Wilde MD Work Phone: [facility] 05-30-2022 08:14-0400 Body height 170.2 cm Melodie Wilde MD Work Phone: [facility] 05-30-2022 08:14-0400 Body mass index (BMI) [Ratio] 31.32 kg/m2 Melodie Wilde MD Work Phone: [facility] 05-30-2022 08:14-0400 Body temperature 97.9 [degF] Melodie Wilde MD Work Phone: [facility] 05-30-2022 08:14-0400 Body weight 90.72 kg Melodie Wilde MD Work Phone: [facility] Encounters Encounter Date Encounter Type Care Provider Facility Start: 03-26-2024 End: 03-26-2024 Telephone encounter Grace Askew MD Work Phone: [facility] Start: 03-25-2024 End: 03-25-2024 Letter encounter Dallin Gonzalez MD Work Phone: [facility] (ENT) Start: 03-24-2024 End: 03-24-2024 Telephone encounter Grace Askew MD Work Phone: [facility] [place] Start: 03-24-2024 ambulatory DALLIN GONZALEZ Facilit y:[facility] Start: 03-22-2024 End: 03-22-2024 Clinisync Result Encounter Grace Askew MD Work Phone: [facility] External Department Unsolicited Start: 03-22-2024 End: 03-22-2024 Clinisync Result Encounter Grace Askew MD Work Phone: [facility] External Department Unsolicited Start: 03-21-2024 End: 03-21-2024 Office outpatient new 30 minutes Dallin Gonzalez MD Work Phone: [facility] Otol[facility]ology (ENT) Comment on above: Submandibular gland mass (Primary Dx) Start: 03-21-2024 End: 03-21-2024 ambulatory DALLIN GONZALEZ Facility:[facility] Start: 03-21-2024 End: 03-21-2024 Bamboo flowsheet Grace Askew MD Work Phone: [facility] Start: 03-21-2024 End: 03-21-2024 Bamboo flowsheet Grace Askew MD Work Phone: [facility] Start: 03-21-2024 End: 03-21-2024 Office outpatient new 45 minutes Grace Askew MD Work Phone: [facility] Comment on above: Neck mass (Primary D x) Start: 03-21-2024 End: 03-21-2024 ambulatory GRACE ASKEW Not Available Start: 03-05-2024 End: 03-05-2024 ambulatory Maria R Garcia Facility:[facility] Start: 06-22-2022 ambulatory NEVIN JOSEPH [facility] Start: 06-22-2022 End: 06-22-2022 Postop follow up visit related to original px Nevin Joseph PAFranklyn Work Phone: [facility] Comment on above: H/O excision of mass - Rt thumb IP jt mucous cyst (Primary Dx) Start: 06-08-2022 End: 06-08-2022 ambulatory MELODIE WILDE [facility] Start: 06-08-2022 End: 06-08-2022 Subsequent hospital visit by physician Melodie Wilde MD Work Phone: [facility] Peri Comment on above: Mass of finger of ri ght hand Start: 05-31-2022 ambulatory MARIA R GARCIA [facility] Start: 05-30-2022 ambulatory MELODIE WILDE [facility] Start: 05-30-2022 End: 05-30-2022 Subsequent hospital visit by physician Melodie Wilde MD Work Phone: [facility] Diagnostic Radiology [facility] Comment on above: Arrived Start: 05-30-2022 End: 05-30-2022 Office outpatient new 45 minutes Melodie Wilde MD Work Phone: [facility] Comment on above: [...] 07-23-[address] MARIA R GARCIA . Facility: Procedures Date Procedure Procedure Detail Performing Clinician Start: 03-22-2024 ALL SED RATE Grace gould MD Work Phone: H/O: surgery H/O excision of mass- Rt thumb IP jt mucous cyst Nevin Joseph PA-C Work Phone: Plan of Treatment Date Care Activity Detail Author Start: 01-25-2029 Lipid panel [facility] Start: 04-30-2024 End: 04-30-2024 Patient encounter procedure 04/30/2024 9:45 AM EST Office Visit [facility] Otol[facility]ology (ENT) [address] [place] [id number] Dallin Gonzalez MD [address] [place], [place] [id number] [facility] Ot[facility] (ENT) Start: 04-22-2024 End: 04-22-2024 Admission to same day surgery center 04/22/2024 8:35 AM EST - 04/22/2024 11:04 AM EST [facility] [address] [place] [id number] Dallin Gonzalez MD [address] [place] [id number] EXCISION, GLAND, SUBMANDIBULAR [facility] Comment on above: EXCISION, GLAND, SUB MANDIBULAR Start: 04-22-2024 End: 04-22-2024 EXCISION, GLAND, SUBMANDIBULAR EXCISION, GLAND, SUBMANDIBULAR Routine scheduled Submandibular gland mass 04/22/2024 8:35 AM EST [facility] Start: 04-22-2024 Subsequent hospital visit by physician 04/22/2024 8:35 AM EST Hospital Encounter [facility] Main OR [address] [place] [id number] Dallin Gonzalez MD [address] [place] [id number] [facility] Main OR Start: 04-08-2024 End: 04-08-2024 Nursing evaluation of patient and report 04/08/2024 8:30 AM EST Nurse Visit [facility] Pre-Admission Testing [address] [place] [id number] Constance Arellano, HIREN [address] [place] [id number] [facility] Pre-Admission Testing Start: 04-01-2024 End: 04-01-2024 Patient encounter procedure 04/01/2024 9:20 AM EST Office Visit [facility] [address] [id number] Grace Askew MD [address] [facility] [address] [place] [address] [facility] Start: 03-21-2024 End: 03-21-2024 Patient encounter procedure 03/21/2024 10:00 AM EST Office Visit [facility] [place] [address] [place] [address] Grace Askew MD [address] [facility] [address] [place] [address] Arrived [facility] Comment on above: Arrived Start: 11-18-2023 COVID-19 Vaccine ( season) COVID-19 Vaccine () [facility] Start: 11-18-2023 Influenza vaccination Influenza Vacc ine (#1) [facility] Start: 06-22-2022 End: 06-22-2022 Patient encounter procedure 06/22/2022 Office Visit Orthopaedics Nevin Joseph, PAKarimeC [address] [place], [place] [id number] [facility] Start: 06-08-2022 End: 06-08-2022 Admission to same day surgery center 06/08/2022 Surgery Multispecialty Melodie Wilde MD [address] [place], [place] [id number] EXCISION SOFT TISSUE FINGER HAND *WALANT* rt [facility] Comment on above: EXCISION SOFT TISSUE FINGER HAND *WALANT* rt Start: 06-08-2022 Subsequent hospital visit by physician 06/08/2022 Hospital Encounter Multispecialty Melodie Wilde MD [address] [place], [place] [id number] Mass of finger of right hand [facility] Comment on above: Mass of finger of ri ght hand Start: 06-08-2022 End: 06-08-2022 Exc maxwell/vasc mal sft tiss hand/fngr subq <1.5cm [facility] Start: 04-05-2021 COVID-19 VACCINE (4 - Booster for Pfizer series) COVID-19 VACCINE (4 - Booster for Pfizer series) [facility] Start: 2019 Hepatitis B (HBV) Vaccine (optional start 60+ years) Hepatitis B (HBV) Vaccine (optional start 60+ years) [facility] Start: 05-19-2009 Shingles (RZV) Vacci ne (1 of 2) Shingles (RZV) Vaccine (1 of 2) [facility] Start: 05-19-2009 Zoster vaccine hzv live for subcutaneous use ZOSTER (SHINGLES) VACCINE (1 of 2) [facility] Start: 05-19-2004 Screening for malignant neoplasm of colon [facility] Start: 1999 Lipid panel LIPID SCREENING [facility] Start: 1999 Screening for malignant neoplasm of breast [facility] Start: 05-19-1989 Screening for malignant neoplasm of cervix [facility] Start: 05-19-1980 Screening for malignant neoplasm of cervix [facility] Start: 05-19-1978 Hepatitis A (HAV) Vaccine (optional start 19+ years) Hepatitis A (HAV) Vaccine (optional start 19+ years) [facility] Start: 05-19-1978 Third diphtheria, tetanus and acellular pertussis (DTaP) vaccination TDAP (ADULT) [facility] Start: 05-19-1977 Hepatitis C screening Hepatitis C An tibody [facility] Start: 05-19-1977 Tdap Booster Tdap Booster [facility] Start: 05-19-1974 HIV screening [facility] Start: 1959 Hepatitis C screening HEPATITI S C VIRUS SCREENING [facility] Start: 1959 Screening for malignant neoplasm of colon [facility] Start: 1959 Tetanus vaccination TETANUS [facility] EXCISION, GLAND, SUBMANDIBULAR EXCISION, GLAND, SUBMANDIBULAR Routine scheduled Submandibular gland mass [facility] XR Thumb - right Views XR THUMB RIGHT Imaging Routine Mass of finger, right 05/30/2022 8:28 AM EDT [facility] Work Phone: Immunizations Immunization Date Immunization Notes Care Provider [facility] 02-24-2023 influenza, injectabl e, quadrivalent, preservative free Dallin Gonzalez MD Work Phone: [facility] 02-24-2023 Respiratory syncytia l virus (RSV), vaccine, bivalent, protein subunit RSV prefusion F, diluent reconstituted, 0.5 mL, preservative free (LFJ=747) Dallin Gonzalez MD Work Phone: [facility] 02-24-2023 influenza virus vacc ine, unspecified formulation Grace Askew MD Work Phone: [facility] 01-31-2022 Influenza, injectabl e, Madin Teasdale Canine Kidney, preservative free, quadrivalent Dallin Gonzalez MD Work Phone: [facility] 02-28-2021 Influenza, injectabl e, Madin Rachell Canine Kidney, preservative free, quadrivalent Dallin Gonzalez MD Work Phone: [facility] 03-05-2020 Influenza, injectabl e, Madin Rachell Canine Kidney, preservative free, quadrivalent Dallin Gonzalez MD Work Phone: [facility] 02-15-2017 influenza virus vacc ine, unspecified formulation Dallin Gonzalez MD Work Phone: [facility] 01-10-2016 influenza virus vacc ine, unspecified formulation Dallin Gonzalez MD Work Phone: [facility] 01-10-2016 pneumococcal polysaccharide vaccine, 23 valent Dallin Gonzalez MD Work Phone: [facility] Payers Date Payer Category [facility]ayer [facility] [id number] 2024 Self-pay 2023 Medicaid (Managed Care) LITZY BAIG [id number] 2023 Medicaid [id number] [address] [facility] [id number] 2021-Present [address] [address] [place] [address] [id number] 1959 Unknown [id number] [id number]. 2.593 1959 Unknown [id number] 2.16.840.1.767755.3.579. 2.593 1959 Unknown [id number] 2.16.840.1.594628.3.579. 2.593 1959 Unknown [id number] 2.16.840.1.867835.3.579. 2.593 1959 Unknown [id number] 2.16.840.1.882532.3.579. 2.593 1959 Unknown [id number] 2.16.840.1.406262.3.579. 2.593 1959 Unknown [id number] 2.16.840.1.938589.3.579. 2.983 1959 Unknown [id number] 2.16.840.1.580099.3.579. 2.983 1959 Unknown [id number] 2.16.840.1.065918.3.579. 2.983 1959 Unknown [id number] 2.16.840.1.578134.3.579. 2.983 1959 Unknown [id number] 2.16.840.1.662281.3.579. 2.983 1959 Unknown [id number] 2.16.840.1.891340.3.579. 2.1259 1959 Unknown [id number] 2.16.840.1.521976.3.579. 2.732 1959 Unknown [id number] [id number]. 2.732 1959 Private Health Insurance [id number] 1959 Self-pay [id number] 1959 Unknown [id number] Social History Date Type Detail Facility Start: 05-30-2022 End: 03-21-2024 [facility] Never smoked tobacco [facility] Start: 05-30-2022 End: 03-21-2024 Tobacco use and exposure Smokeless tobacco non-user [facility] Start: 1960 Sex Assigned At Not on file [facility] Start: 05-29-2022 End: 06-08-2022 Exposure to SARS-CoV-2 (event) Not sure [facility] Tobacco [facility] Tobacco smoking consumption unknown [facility] Start: 03-21-2024 Gender identity Not on file [facility] Start: 03-21-2024 Tobacco [facility] Ex-smoker [facility] History of tobacco use Current smoker [facility] History of tobacco use Cigarette Smoker [facility] Start: 03-21-2024 Alcoholic beverage intake Lifetime non-drinker (finding) [facility] Start: 03-21-2024 History of Social function [facility] Start: 03-18-2024 Sex Female (finding) Rosalva christine Work Phone: NEGATED: Highlighted rowStart: NINF History of tobacco use Passive smoker [facility] Medical Equipment Procedure Code Equipment Code Equipment Original Text Equi pment Identifier Dates Tests BS daily a nd as needed. [id number] Clinical Notes 05-30-2022 to 01-08-2025 Telephone Encounter - Grace Askew MD - 03/26/2024 12:10 PM ESTTelephone Encounter - Grace Askew MD - 03/26/2024 12:10 PM ESTTelephone Encounter - Kristie Askew - 03/26/2024 11:50 AM EST Note Date & Type Note Facility 03-26-2024 Telephone encounter Note prn [facility] 03-26-2024 Miscellaneous Notes prn Pt cancelled follow up appt/she had the US and lab done. Per Dr Askew he will not do her surgery so no need for appt. documented in this encounter [facility] 03-26-2024 Telephone encounter Note Pt cancelled follow up appt/she had the US and lab done. Per Dr Askew he will not do her surgery so no need for appt. [facility] 03-24-2024 Telephone encounter Note Pt called to notify her US showed no chenge in the size of her mass. She notified me that after seeing me last week she saw someone else the same day, and has been scheduled for surgery. F/U with me prn [facility] 03-24-2024 Miscellaneous Notes Pt called to notify her US showed no chenge in the size of her mass. She notified me that after seeing me last week she saw someone else the same day, and has been scheduled for surgery. F/U with me prn documented in this encounter [facility] 03-21-2024 History of Presen t illness Narrative CC: Chief Complaint Patient presents with lump on right side of neck New patient, to establish relationship HPI: Josie Veliz is a 63 year old female referred by family medicine for evaluation of a right-side neck mass that's been present since about a week before Thanksgi. She doesn't think it's grown. No pain reported. It doesn't swell when she eats, and she hasn't noticed any sores in her mouth. No other symptoms that she's aware of. Patient is also not aware of any autoimmune processes. She's had the mass biopsied before; the report showed atypia of undetermined significance. PMHx: Diabetes No past surgical history on file. Allergies Patient has no known allergies. Medications No current outpatient medications on file. No current facility-administered medications for this visit. Family History The patient's family history is not on file.. Social History: Social History Socioeconomic History Marital status: Unknown Tobacco Use Smoking status: Never Passive exposure: Never Smokeless tobacco: Never Review of Systems - as per HPI, otherwise the balance of 10 systems is negative Physical Exam Vitals: 03/21/24 1451 BP: 117/45 Pulse: 82 Temp: 98 F (36.7 C) SpO2: 96% General apperance: WN/WD adult in no apparent distress, sitting in a chair Ability to communicate: normal voice without hoarseness Head and Face: Atraumatic, normocephalic; skin with no masses or lesions; sinuses nontender to palpation, face symmetric with normal movement Salivary Glands: No enlargement or tenderness of parotid or left submandibular gland Ears:External ears are intact without any lesions or masses. Eyes: EOM Intact, sclera anicteric, no conjunctival injection. Nose: External nose midline Oral Cavity: I can palpate the mass, and it's a bit tender when doing so, but everything looks normal otherwise. Oropharynx: the soft palate, tonsils, and lateral pharyngeal castellano are without lesions or masses Neck: 5cm mass of right submandibular triangle. Feels like it's coming from the gland, but hard to tell. No surrounding adenopathy. CV: No clubbing/cyanosis/edema in hands Respiration: Breathing comfortably, no stridor or stertor Neuro: A&Ox3, Cranial nerves 2-12 intact and symmetric. Normal affect. Outside CT reviewed Approximately 5 cm mass involving right submandibular, with no obvious adenopathy. Fairly well-circumscribed. Assessment/Recommendations: Josie Veliz is a 63 year old female who presents today for: 1. Submandibular gland mass - I reviewed the path report she showed me, which listed atypia of undetermined significance. - Discussed repeat biopsy, but I think excision is fine. - I told her I'll send it to pathology at the time of surgery. - If it's positive for cancer and high-grade, we can consider neck dissection at the time. - Otherwise, I'd just close up and wait for the final path. - She's good with that plan. We discussed risks and benefits, and she'd like to move forward. - I have a copy of the scan on my phone. Electronically signed by Vahid Tripp scribing for and in the presence of Dr. Dallin Gonzalez on 03/21/2024 at 3:08 PM All medical record entries made by the scribe were at my direction and personally dictated by me. I have reviewed and edited the record and confirm that the note above accurately reflects all work, treatment, procedures, and medical decision making performed by me. Dallin Gonzalez MD documented in this encounter [facility] 03-21-2024 History of Presen t illness Narrative Subjective Patient ID: Josie Veliz is a 63 y.o. female who presents for Neck Mass Pt reports in mid January she developed a painless RT submandibular mass. CT obtained that shows an irregular 6cm Mass with extension inferolaterally and superiorly medial to the mandible into the FOM. FNA obtained that shows lymphocytes and AUS. Mass is painless. Pt states she feels mass smaller, but loved-ones disagree. Pt states she has a h/o dry eyes and mouth. Review of Systems All other systems reviewed and are negative. No family history on file. Active Ambulatory Problems Diagnosis Date Noted No Active Ambulatory Problems Resolved Ambulatory Problems Diagnosis Date Noted No Resolved Ambulatory Problems Past Medical History: Diagnosis Date Neck mass Past Surgical History: Procedure Laterality Date SECTION, CLASSIC X 2 CHOLECYSTECTOMY CYST REMOVAL on back DENTAL SURGERY Allergies Allergen Reactions Buspirone Other reaction(s): itching Levofloxacin Other reaction(s): itching Current Outpatient Medications on File Prior to Visit Medication Sig Dispense Refill atorvastatin (Lipitor) 20 MG tablet Take 20 mg by mouth at bedtime escitalopram (Lexapro) 20 MG tablet Take 20 mg by mouth in the morning. fluticasone (Flonase) 50 MCG/ACT nasal spray 1 (one) time each day at the same time. glucose blood test strip Tests BS daily and as needed. lamoTRIgine (LaMICtal) 25 MG tablet TAKE 2 TABLETS BY MOUTH EVERY DAY AT BEDTIME LORazepam (Ativan) 0.5 MG tablet Take 0.5 mg by mouth Daily metFORMIN XR (Glucophage-XR) 500 MG 24 hr tablet Take 1,000 mg by mouth in the morning and 1,000 mg before bedtime. temazepam (Restoril) 30 MG capsule TAKE 1 CAPSULE (30 MG) BY MOUTH EVERY DAY AT BEDTIME tiZANidine (Zanaflex) 4 MG tablet TAKE 2 TABLETS BY MOUTH AT BEDTIME FOR 15 DAYS traZODone (Desyrel) 100 MG tablet TAKE 2 TABLETS BY MOUTH EVERY DAY AT BEDTIME No current facility-administered medications on file prior to visit. Objective Last Recorded Vitals Vitals: 03/21/24 0947 BP: 132/80 ENT Physical Exam Constitutional Appearance: patient appears well-developed, well-nourished and well-groomed, Head and Face Appearance: head appears normal and face appears atraumatic; Ear Ear Canals: right ear canal normal; left ear canal normal; Tympanic Membranes: right tympanic membrane normal; left tympanic membrane normal; Nose External Nose: nares patent bilaterally; external nose normal; Internal Nose: septum normal; Oral Cavity/Oropharynx Tongue: normal; Oral mucosa: normal; Hard palate: normal; Soft palate: normal; Tonsils: normal; Neck Neck: neck normal; neck palpation normal; Thyroid: thyroid normal; Neck comments: 4cm RT submandibular mass with palpable extension into the FOM. Respiratory Inspection: breathing unlabored; normal breathing rate; Auscultation: breath sounds are clear; Cardiovascular Inspection: extremities are warm and well perfused; no peripheral edema present; Auscultation: regular rate and rhythm; Assessment/Plan Diagnoses and all orders for this visit: Neck mass RT submandibular mass is much smaller that I would have expected after review of CT. I will repeat an US as it has been a month since the last. If sig smaller I will follow till resolved. If unchanged or larger, I will arrange for removal. Check CRP and ESR for possible sjogrens documented in this encounter [facility] 06-22-2022 History of Presen t illness Narrative [...] as needed basis. documented in this encounter [facility] 06-08-2022 Hospital Discharg e instructions Marita Figueroa [...] free to contact your physician by calling [phone] ([phone]). If it is after hours you can contact the marketing liaison doctor by calling [facility] at . Prescription refills will only [...] next 24 hours. documented in this encounter [facility] 06-08-2022 Nurse Surgical operation note Patient transported to outpatient bay#7 via bed. Bed locked and lowered, rails up. Monitors reapplied vitals stable. Call light within reach. Family/friend at bedside. Report given to Marita MARADIAGA. [facility] 06-08-2022 Nurse Note Patient transported to outpatient bay#7 via bed. Bed locked and lowered, rails up. Monitors reapplied vitals stable. Call light within reach. Family/friend at bedside. Report given to Marita MARADIAGA. documented in this encounter [facility] 06-08-2022 Note Formatting of this n ote might be different from the original. DATE: 06/08/2022 Patient: Josie Veliz Pre-Op Dx: Mass of finger of right hand [R22.31] Post-Op Dx: Mass of finger of right hand [R22.31] Procedure: Procedure(s) (LRB): EXCISION SOFT TISSUE FINGER HAND *WALANT* rt (Right) Surgeon: Surgeon(s) and Role: * Melodie Wilde MD - Primary Performance Improvement Coordinator: * No surgical staff found * ANESTHESIA [...] having tolerated the procedure well. [facility] 06-08-2022 Note Formatting of this n ote might be different from the original. DATE: 06/08/2022 Patient: Josie Veliz Pre-Op Dx: Mass of finger of right hand [R22.31] Post-Op Dx: Mass of finger of right hand [R22.31] Procedure: Procedure(s) (LRB): EXCISION SOFT TISSUE FINGER HAND *WALANT* rt (Right) Surgeon: Surgeon(s) and Role: * Melodie Wilde MD - Primary Performance Improvement Coordinator: * No surgical staff found * ANESTHESIA TYPE: * No anesthesia type entered * INTRAVENOUS FLUIDS: Per anesthesia record ESTIMATED BLOOD LOSS: Per anesthesia record Specimens: * No specimens in log * Implants: * No implants in log * COMPLICATIONS: * No complications entered in OR log * DISPOSITION: To the recovery room in stable condition [facility] 06-08-2022 Miscellaneous Notes DATE: 06/08/2022 Patient: Josie Veliz Pre-Op Dx: Mass of finger of right hand [R22.31] Post-Op Dx: Mass of finger of right hand [R22.31] Procedure: Procedure(s) (LRB): EXCISION SOFT TISSUE FINGER HAND *WALANT* rt (Right) Surgeon: Surgeon(s) and Role: * Melodie Wilde MD - Primary Performance Improvement Coordinator: * No surgical staff found * ANESTHESIA [...] Role: * Melodie Wilde MD - Primary Performance Improvement Coordinator: * No surgical staff found * ANESTHESIA TYPE: * No anesthesia type entered * INTRAVENOUS FLUIDS: Per anesthesia record ESTIMATED BLOOD LOSS: Per anesthesia record Specimens: * No specimens in log * Implants: * No implants in log * COMPLICATIONS: * No complications entered in OR log * DISPOSITION: To the recovery room in stable condition documented in this encounter [facility] 06-08-2022 Attending History and physical note I [...] on the schedule in the near future. [facility] 06-08-2022 History and physical note I have [...] the near future. documented in this encounter [facility] 05-30-2022 History and physical note 05/30/22 Chief [...] on the schedule in the near future. T [facility] Work Phone: 05-30-2022 History and physical note [...] the near future. documented in this encounter [facility] 05-30-2022 History of Presen t illness Narrative [...] for dysphoric mood. documented in this encounter [facility] Evaluation note Diagnosis Mass of finger, right- Primary Mass of finger of right hand Localized superficial swelling, mass, or lump [facility] Post-[facility] pain- Primary Other acute postoperative pain [facility] H/O excision of mass- Rt thumb IP jt mucous cyst- Primary Personal history of surgery to other organs [facility] Diagnosis Neck mass- Primary Swelling, mass, or lump in head and neck [facility] Submandibular gland mass- Primary Other specified diseases of the salivary glands [facility] Summary Purpose Family History No Family History Records FoundNo Family History Records FoundNo Family History Records FoundNo Family History Records FoundNo Family History Records Found Advance Directives No Advanced Directives Records FoundNo Advanced Directives Records FoundNo Advanced Directives Records FoundNo Advanced Directives Records FoundNo Advanced Directives Records Found Reason for Referral Specialty Diagnoses / Procedures Referred By Contac t Referred To Contact Diagnoses Mass of finger, right Procedures XR THUMB RIGHT Melodie Wilde MD [address] [place] [address] Referral ID Status Reason Start Date Expiration Date V isits Requested Visits Authorized [id number] New Request 05/22/2022 06/16/2023 1 1 Additional Source Comments INFORMATION SOURCE (unrecogn ized section and content) DATE CREATED AUTHOR 05/26/2022 [facility] DATE CREATED AUTHOR AUTHOR'S ORGANIZ ATION 06/23/2022 [facility] DATE CREATED AUTHOR AUTHOR'S ORGANIZ ATION 03/14/2024 [facility] DATE CREATED AUTHOR AUTHOR'S ORGANIZ ATION 03/28/2024 [facility] DATE CREATED AUTHOR AUTHOR'S ORGANWEI ATION 04/04/2024 [facility] Reason for Visit (unrecogniz ed section and content) Specialty Diagnoses / Procedures Referred By Paige powell Referred To Contact Diagnoses Mass of finger, right Procedures XR THUMB RIGHT Melodie Wilde MD [address] [place] [address] Referral ID Status Reason Start Date Expiration Date V isits Requested Visits Authorized [id number] New Request 05/22/2022 06/16/2023 1 1 Reason Comments Consult Nodule on Rt.thumb Specialty Diagnoses / Procedures Referred By Paige powell Referred To Contact Diagnoses Mass of finger of right hand Mass of finger of right hand [R22.31] Procedures RI EXC MAXWELL/VASC MAL SFT TISS HAND/FNGR SUBQ <1.5CM EXCISION SOFT TISSUE FINGER HAND Melodie Wilde MD [address] [place] [address] Referral ID Status Reason Start Date Expiration Date Visits Re quested Visits Authorized [id number] 05/31/2022 1 1 Reason Comments Follow-up S/p Right Hand Mass Excision(Thumb IP Mucous Cyst)/ OR: 06/08/22(2w)/ Pain Scale: 0/10 Post Op Visit S/p Right Hand Mass Excision(Thumb IP Mucous Cyst)/ OR: 06/08/22(2w)/ Pain Scale: 0/10 Reason Comments Neck Mass Reason Comments lump on right side of neck New patient, to establish relationship Specialty Diagnoses / Procedures Referred By Paige powell Referred To Contact Ent-Otolaryngology Diagnoses [place] [address] [place] [address] Phone: tel: fax: Referral ID Status Reason Start Date Expiration Date V isits Requested Visits Authorized [id number] Authorized 03/18/2024 03/18/2025 3 3 Care Teams (unrecognized sec tion and content) [employer] Relationship Specialty Start Date End Date Maria R Garcia MD [address] [place] [address] PCP - General Family Medicine 04/04/22 [employer] Relationship Specialty Start Date End Date Maria R Garcia MD [address] [place] [address] PCP - General Family Medicine 04/04/22 [employer] Relationship Specialty Start Date End Date Maria R Garcia MD [address] [place] [address] PCP - General Family Medicine 04/04/22 [employer] Relationship Specialty Start Date End Date Maria R Garcia MD [address] [place] [address] PCP - General Family Medicine 04/04/22 [employer] Relationship Specialty Start Date End Date Maria R Garcia MD [address] [place] [phone] PCP - General Family Medicine 03/14/24 [employer] Relationship Specialty Start Date End Date Maria R Garcia MD [address] [place] [address] PCP - General Family Medicine 03/14/24 [employer] Relationship Specialty Start Date End Date Maria R Garcia MD [address] [place] [address] PCP - General Family Medicine 03/14/24 [employer] Relationship Specialty Start Date End Date Dallin Gonzalez MD [address] [place], [place] [phone] Physician Otolaryngology 03/22/24 [employer] Relationship Specialty Start Date End Date Maria R Garcia MD [address] [place] [address] PCP - General Family Medicine 03/14/24 [employer] Relationship Specialty Start Date End Date Dallin Gonzalez MD [address] [place] [address] Physician Otolaryngology 03/22/24 Scheduled Active and Recently Administ ered Medications [...] BE BASED ON THE PRIMARY CLINICAL RECORDS. [facility] [employer] [facility]. provides no warranty or guarantee of the accuracy or completeness of information in this document.
== END 2024-04-04 12:46 | disposition home or self-care (01) ==
LOC: US 12:45
PROVIDERS: PCP Family Medicine; Visit Provider Family Medicine
DX: R22.1 Localized swelling, mass and lump, neck (principal)
CPT/HCPCS: 76536

== ENCOUNTER 2024-06-20 10:55 | Outpatient (OUT) | payer MEDICARE, OTHER, SELFPAY ==
--- NOTE | 2024-06-20 11:06 | XR_ITS ---
The [address] [address] Patient Name: JOSIE CABRERA MRN: [id number] date: 1960 Sex: F Assigned Patient Location: [facility] Current Patient Location: [facility] Accession/Order Number: [id number] Exam Date: 06/20/2024 12:09 Report Date: 06/20/2024 12:18 At the request of: MARIA R MARSHALL MD Procedure: XR chest 2V PA AND LATERAL CHEST: CLINICAL HISTORY: Acute Bronchitis with productive cough and shortness of breath COMPARISON: CT chest 05/18/2022 and plain films 05/17/2022 There is an elongate 1 cm nodular asymmetry at the periphery of the left midlung between the posterior seventh and eighth ribs which is not seen on the priors. There is no focal parenchymal consolidation, effusion or pneumothorax. The cardiac, hilar and mediastinal silhouettes are within normal limits. There is no vascular congestion. The visualized bony thorax is intact. Mild degenerative change and slight scoliotic curvature are visualized at the spine. XR/XR chest 2V IMPRESSION: EQUIVOCAL NODULAR ASYMMETRY ON THE LEFT, NOT SEEN PREVIOUSLY. PATIENT IS HIGH RISK, FOLLOW-UP CT COULD BE CONSIDERED. NO OTHER ACUTE FINDINGS. Impression dictated by: Mansi Riley M.D.06/20/2024 12:18 PM Dictation Location: [place] [address] Electronically authenticated by: [id number] Y Date: 06/20/2024 12:18
== END 2024-06-20 10:56 | disposition home or self-care (01) ==
PROVIDERS: PCP Family Medicine; Visit Provider Family Medicine
DX: J20.9 Acute bronchitis, unspecified (principal); R91.8 Other nonspecific abnormal finding of lung field
CPT/HCPCS: 71046

== ENCOUNTER 2024-06-27 11:45 | Outpatient (REF) | payer MEDICARE, OTHER, SELFPAY ==
--- OUTSIDE RECORDS SUMMARY | 2024-06-27 11:50 | XMS_ITS | CCD ---
Author Organization [facility] Care Team Providers Care Order Manager Name Role Phone JOANNA ., DR HECK Admitting Unavailable HOY ., DR HECK Attending Unavailable HOY ., DR HECK Primary Care Unavailable HOY ., DR HECK Consulting Unavailable ZIEBER, DR GREGORIA Hager Consulting Unavailable HOY ., DR HECK [...] Maria R Garcia MD Primary Care Provider [phone] MARIA R GARCIA Primary Care Unavailable HECTOR JOSEPH Attending Unavailable MARIA R GARCIA M Primary Care Unavailable MELODIE WILDE Referring Unavailable HOY, MARIA R M Primary Care Unavailable JOANNA MARIA R M Referring Unavailable MELODIE WILDE Attending Unavailable MELODIE WILDE Referring Unavailable MARIA R GARCIA Primary Care Unavailable MELODIE WILDE Attending Unavailable MELODIE WILDE Referring Unavailable JOANNA MARIA R M Primary Care Unavailable MELODIE WILDE Admitting Unavailable MELODIE WILDE Attending Unavailable Maria R Garcia MD Primary Care Provider [phone] Unavailable Primary Care Provider Unavailabl e Dallin Gonzalez MD Unavailable [phone] KELLY ASKEW Attending Unavailable Maria R Garcia MD Attending Provider Maria R Garcia MD Primary Care Provider [phone] Jack Cope DO Attending Provider Dallin Gonzalez MD Referring Provider DALLIN GONZALEZ Attending Unavailable VIRAJ, JACK Admitting Unavailable VIRAJ, JACK Attending Unavailable VIRAJ, JACK Admitting Unavailable DALLIN GONZALEZ Referring Unavailable DALLIN GONZALEZ Attending Unavailable DALLIN GONZALEZ Referring Unavailable DALLIN GONZALEZ Admitting Unavailable VIRAJ, JACK Attending Unavailable VIRAJ, JACK Admitting Unavailable DALLIN GONZALEZ Referring Unavailable DALLIN GONZALEZ Attending Unavailable VIRAJ, JACK Admitting Unavailable VIRAJ, JACK Admitting Unavailable VIRAJ, JACK Attending Unavailable VIRAJ, JACK Admitting Unavailable MARIA R GARCIA. Referring Unavailable DALLIN GONZALEZ Attending Unavailable VIRAJ, JACK Attending Unavailable VIRAJ, JACK Admitting Unavailable VIRAJ, JACK Attending Unavailable VIRAJ, JACK Admitting Unavailable VIRAJ, JACK Admitting Unavailable DALLIN GONZALEZ Attending Unavailable Maria R Garcia MD Primary Care Provider [phone] Jack Cope DO Attending Provider Dallin Gonzalez MD Referring Provider Maria R Garcia Attending Unavailable Maria R Garcia Admitting Unavailable Adamowicz Jack MUNIZ Admitting Unavaila ble Dallin Gonzalez Referring Unavailable Maria R Garcia Primary Care Unavailable Jack Cope II Attending Unavaila ble Allergies Allergy Classification Reported Allergen(s) Allergy Type Date of Onset Reaction(s) Facility (5 sources) levoFLOXacin; 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: [LEVOFLOXACIN] Drug Allergy 4 [facility] Repository (8 sources) busPIRone; 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: [BUSPIRONE] Drug Allergy 4 [facility] (5 sources) levoFLOXacin Drug Allergy 4 [facility] (1 source) OTHER (REVIEW COMMENTS!); 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: [OTHER (REVIEW COMMENTS!)] Propensity to adverse reactions to drug (disorder) 5 [facility] Repository (1 source) busPIRone Drug Allergy 5 [facility] Repository (1 source) levoFLOXacin Drug Allergy 5 [facility] Repository Medications Current Medications Medication Drug Class(es) [...] Antidepressant Start: 05-26-2022 Amitriptyline 10 MG tablet aspirin 81 mg delayed release oral tablet (3 sources) Platelet Aggregation Inhibitor, Nonsteroidal Anti-inflammatory Drug Start: 05-29-2024 take 1 tablet by mouth once daily Aspirin 81 mg tablet,delayed release (DR/EC) Active 81 MG PO Daily May 29, 2024 12:00am atorvastatin 20 mg oral tablet (12 sources) HMG-CoA Reductase Inhibitor Start: 05-29-2024 take 1 tablet by mouth once daily at bedtime Atorvastatin 20 mg tablet Active 20 MG PO Daily at bedtime May 29, 2024 12:00am Start: 03-10-2024 take 1 tablet by trini th at bedtime atorvastatin (Lipitor) 20 MG tablet Take 20 mg by mouth at bedtime 03/10/2024 Active Start: 04-25-2022 take 1 tablet by trini th every twenty-four hours Atorvastatin 20 MG tablet Take 1 tablet by mouth every evening. 0 04/25/2022 Active Blood-Glucose Meter (Accu-Chek Guide Glucose Meter) misc (1 source) Start: 06-19-2024 Blood-Glucose Meter (Accu-Chek Guide Glucose Meter) misc Active 0 .ROUTE June 19, 2024 12:00am As directed 12 hr buPROPion hydrochloride 200 mg extended release oral tablet (7 sources) Aminoketone Start: 05-29-2024 take 1 tablet by mouth once daily in the morning Bupropion Hcl 200 mg tablet sustained-release 12 hr Active 200 MG PO Every morning May 29, 2024 12:00am Start: 03-29-2022 take 1 tablet by trini th once daily in the morning buPROPion 200 MG tablet SR Take 1 tablet by mouth daily every morning. 0 03/29/2022 Active diclofenac sodium 75 mg delayed release oral tablet (7 sources) Nonsteroidal Anti-inflammatory Drug Start: 05-29-2024 take 1 tablet by mouth twice daily Diclofenac Sodium 75 mg tablet,delayed release (DR/EC) Active 75 MG PO Twice daily May 29, 2024 12:00am Start: 05-26-2022 diclofenac EC [address] tablet escitalopram 20 mg oral tablet (12 sources) Serotonin Reuptake Inhibitor Start: 05-29-2024 take 1 tablet by mouth once daily Escitalopram Oxalate 20 mg tablet Active 20 MG PO Daily May 29, 2024 12:00am Start: 03-10-2024 take 1 tablet by trini th in the morning escitalopram (Lexapro) 20 MG tablet Take 20 mg by mouth in the morning. 03/10/2024 Active Start: 04-25-2022 take 1 tablet by trini th once daily in the morning escitalopram 20 MG tablet Take 1 tablet by mouth daily every morning. 0 04/25/2022 Active fluticasone propionate 0.05 mg/actuat metered dose nasal spray (12 sources) Corticosteroid Start: 05-29-2024 take 1 spray(s) nasal route once daily Fluticasone Propionate (Allergy Relief (Fluticasone)) 50 mcg/actuation spray,suspension Active 1 SPRAY INTRANASAL Daily May 29, 2024 12:00am administer into each nostril fluticasone (Caden nase) 50 MCG/ACT nasal spray 1 (one) time each day at the same time. Active fluticasone 50 M CG/ACT Suspension nasal spray 1 spray by Nasal route daily. 0 Active glimepiride 4 mg oral tablet (3 sources) Sulfonylurea Start: 05-30-2024 take 2 mg by mouth twice daily Glimepiride 4 mg tablet Active 2 MG PO Twice daily May 30, 2024 12:00am lamoTRIgine 25 mg oral tablet (12 sources) Mood Stabilizer, Anti-epileptic Agent Start: 05-29-2024 take 2 tablets by mouth at bedtime Lamotrigine 25 mg tablet Active 50 MG PO Bedtime May 29, 2024 12:00am Start: 03-29-2022 take 2 tablets by mo [facility] at bedtime lamoTRIgine 25 MG tablet Take 2 tablets by mouth at bedtime. 0 03/29/2022 Active lisinopril 20 mg oral tablet (4 sources) Angiotensin Converting Enzyme Inhibitor Start: 03-25-2022 take 1 tablet by mouth once daily in the morning Lisinopril 20 MG tablet TAKE ONE TABLET BY MOUTH DAILY IN THE MORNING FOR BLOOD PRESSURE 0 03/25/2022 Active LORazepam 0.5 mg oral tablet (8 sources) Benzodiazepine Start: 05-29-2024 take 1 tablet by mouth once daily Lorazepam 0.5 mg tablet Active 0.5 MG PO Daily May 29, 2024 12:00am Start: 03-03-2024 take 1 tablet by trini once daily LORazepam (Ativan) 0.5 MG tablet Take 0.5 mg by mouth Daily 03/03/2024 Active 24 hr metFORMIN hydrochlorid e 500 mg extended release oral tablet (12 sources) Biguanide Start: 05-29-2024 Metformin 500 mg tablet extended release 24 hr Active 1000 MG PO Twice daily May 29, 2024 12:00am Start: 03-03-2024 take 1 tablet by trini every twenty-four hours in the morning metFORMIN XR (Glucophage-XR) 500 MG 24 hr tablet Take 1,000 mg by mouth in the morning and 1,000 mg before bedtime. 03/03/2024 Active Start: 05-15-2022 take 2 tablets by [facility] once daily metFORMIN-XR 500 MG Tab SR 24 HR Take 2 tablets by mouth daily. 0 05/15/2022 Active omeprazole 20 mg delayed release oral capsule (3 sources) Proton Pump Inhibitor Start: 05-29-2024 take 1 capsule by mouth once daily Omeprazole 20 mg capsule,delayed release(DR/EC) Active 20 MG PO Daily May 29, 2024 12:00am pioglitazone 30 mg oral tablet (3 sources) Peroxisome Proliferator Receptor alpha Agonist, Peroxisome Proliferator Receptor gamma Agonist, Thiazolidinedione Start: 05-30-2024 take 1 tablet by mouth once daily Pioglitazone 30 mg tablet Active 30 MG PO Daily May 30, 2024 12:00am SITagliptin 100 mg oral tablet (3 sources) Dipeptidyl Peptidase 4 Inhibitor Start: 05-29-2024 take 1 tablet by mouth once daily Sitagliptin 100 mg tablet Active 100 MG PO Daily May 29, 2024 12:00am temazepam 30 mg oral capsule (12 sources) Benzodiazepine Start: 05-29-2024 take 1 capsule by mouth once daily at bedtime Temazepam 30 mg capsule Active 30 MG PO Daily at bedtime May 29, 2024 12:00am Start: 05-31-2023 take 1 capsule by mo uth once daily at bedtime temazepam (Restoril) 30 MG capsule TAKE 1 CAPSULE (30 MG) BY MOUTH EVERY DAY AT BEDTIME 05/31/2023 Active Start: 05-04-2022 take 1 capsule by mo uth at bedtime temazepam 30 MG capsule Take 1 capsule by mouth at bedtime. 0 05/04/2022 Active traZODone hydrochloride 100 mg oral tablet (12 sources) Serotonin Reuptake Inhibitor Start: 05-29-2024 take 2 tablets by mouth once daily at bedtime Trazodone 100 mg tablet Active 200 MG PO Daily at bedtime May 29, 2024 12:00am take 2 tablets by mo uth once daily at bedtime traZODone (Desyrel) 100 MG tablet TAKE 2 TABLETS BY MOUTH EVERY DAY AT BEDTIME Active take 1 tablet by mouth once hortencia y traZODone 100 MG tablet Take 1 tablet by mouth Every night. 0 Active Completed/Discontinued Medications Medication Drug Class(es) Dates Sig (Normalized) Sig (Original) amoxicillin 875 mg / clavulanate 125 mg oral tablet (3 sources) Penicillin-class Antibacterial Start: 05-29-2024 End: 05-30-2024 take 1 tablet by mouth every twelve hours Amoxicillin-Pot Clavulanate 875-125 mg tablet Discontinued 1 TAB PO Every 12 hours May 29, 2024 12:00am May 30, 2024 2:54pm 2 ml gentamicin 40 mg/ml injection (1 [...] sodium bicarbonate 8.4% (3mL Prepared by Pharmacy) mometasone furoate 1 mg/ml topical cream (2 sources) Corticosteroid Start: 06-10-2024 End: 06-19-2024 Mometasone 0.1 % cream Discontinued 1 APPLIC TOPICAL Daily 45 June 10, 2024 12:00am June 19, 2024 1:47pm Apply to radiation site, once a day, AFTER radiation treatments. sodium chloride 0.154 meq/ml irrigation solution (1 source) Start: 06-08-2022 End: 06-08-2022 Sodium chloride 0.9 % irrigation tiZANidine 4 mg oral tablet (8 sources) Central alpha-2 Adrenergic Agonist Start: 05-29-2024 End: 05-30-2024 take 1 tablet by mouth once daily at bedtime as needed Tizanidine 4 mg tablet Discontinued 4 MG PO Daily at bedtime as needed May 29, 2024 12:00am May 30, 2024 2:57pm Start: 04-19-2023 take 2 tablets by [facility] at bedtime tiZANidine (Zanaflex) 4 MG tablet TAKE 2 TABLETS BY MOUTH AT BEDTIME FOR 15 DAYS 04/19/2023 Active traMADol hydrochloride 50 mg oral tablet (3 sources) Opioid Agonist Start: 05-29-2024 End: 05-30-2024 take 1 tablet by mouth every six hours as needed Tramadol 50 mg tablet Discontinued 50 MG PO Every 6 hours as needed May 29, 2024 12:00am May 30, 2024 2:57pm triamcinolone acetonide 1 mg/ml topical cream (3 sources) Corticosteroid Start: 05-29-2024 End: 05-30-2024 Triamcinolone Acetonide 0.1 % cream Discontinued 1 APPLIC TOPICAL Twice daily May 29, 2024 12:00am May 30, 2024 2:57pm Problems Problem Classification Problem Date Documented Date Episodic/Chronic Abdominal hernia (1 source) Diaphragmatic hernia without obstruction or gangrene; 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: [DIAPH HERNIA W/O OBST/GANGRENE] Onset: 05-24-2022 Episodic Acute bronchitis (4 sources) Acute bronchitis, unspecified; 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: [ACUTE BRONCHITIS UNSPECIFIED] Onset: 05-17-2022 Episodic Administrative/social admission (2 sources) Patient encounter status; 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: [Dietary counseling and surveillance] 06-19-2024 Episodic Asthma (1 source) Unspecified asthma with (acute) exacerbation; 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: [UNS ASTHMA W/ACUTE EXACERBATION] Onset: 05-24-2022 Chronic Cardiac dysrhythmias (1 source) Tachycardia, unspecified; 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: [TACHYCARDIA UNSPECIFIED] Onset: 05-24-2022 Episodic Diabetes mellitus with complications (4 sources) Type 2 diabetes mellitus with hyperglycemia; 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: [Hyperglycemia due to type 2 diabetes mellitus] Onset: 05-24-2022 06-19-2024 Chronic Diseases of mouth; excluding dental (9 sources) Mass of salivary gland; 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: [Other diseases of salivary glands] Onset: 03-21-2024 03-21-2024 Episodic Disorders of lipid metabolism (2 sources) Hyperlipidemia; 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: [Hyperlipidemia, unspecified] 06-19-2024 Chronic E Codes: Adverse effects of medical drugs (1 source) Adverse effect of glucocorticoids and synthetic analogues, initial encounter; 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: [ADVRS EFF GLUCOCORT SYN ANALOG INIT] Onset: 05-24-2022 Episodic Essential hypertension (3 sources) Essential (primary) hypertension; 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: [Hypertensive disorder] Onset: 05-24-2022 06-19-2024 Chronic Fluid and electrolyte disorders (1 source) Dehydration; 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: [DEHYDRATION] Onset: 05-24-2022 Episodic Non-Hodgkin`s lymphoma (5 sources) Marginal zone lymphoma; 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: [Other specified types of non-Hodgkin lymphoma, unspecified site] Onset: 06-19-2024 06-10-2024 Chronic Nonmalignant breast conditions (1 source) Diffuse cystic mastopathy of right breast; 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: [DIFFUSE CYSTIC MASTOPATHY RT BREAST] Onset: 08-04-2021 Chronic Nonmalignant breast conditions (10 sources) Unspecified lump in the right breast, unspecified quadrant; 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: [Unspecified lump in the right breast, upper inner quadrant] Onset: 07-22-2021 Episodic Other aftercare (1 source) skilled nursing (current) use of aspirin; 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: [PENITENTIARY CURRENT USE OF ASPIRIN] Onset: 05-24-2022 Episodic Other aftercare (1 source) skilled nursing (current) use of oral hypoglycemic drugs; 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: [PENITENTIARY USE ORAL HYPOGLYCEMIC DX] Onset: 05-24-2022 Episodic [...] acute postprocedural pain] Onset: 06-08-2022 Episodic Other nutritional; endocrine; and metabolic disorders (1 source) Body mass index 30+ - obesity; 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: [Body mass index (BMI) 33.0-33.9, adult] 06-19-2024 Chronic Other nutritional; endocrine; and metabolic disorders (1 source) Body mass index (BMI) 33.0-33.9, adult; 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: [Body Mass Index 33.0-33.9, adult] 06-19-2024 Chronic Other skin disorders (1 source) Lump on [...] Interpretation Reference Range Facility Telephone Encounteron 2024 Caseworker Authentication Interface Message Text Pt called and requested her surgical report and biopsy results be sent to her oncologist: Reports faxed to the below number. Dr.Timothy Cope at [facility] [phone] Normal [facility] Glucose Glucometer (BldC) [M ass/Vol]Ordered By: Jack Cope on 05-28-2024 Glucose [Mass/Vol] Capillary blood gluc ose measurement by glucometer (mass/volume) [facility] Comment on above: Random Glucose Refer ence Range is dependent on time and content of last meal. Glucose of more than 200 mg/dL in a nonstressed, ambulatory subject supports the diagnosis of Diabetes Mellitus. Glucose Poct Glucometerson 0 05-28-2024 Glucose [Mass/Vol] 183 mg/dL Normal [facility] Comment on above: Result Comment: [place] Glucose Reference Range is dependent on time and content of last meal. Glucose of more than 200 mg/dL in a nonstressed, ambulatory subject supports the diagnosis of Diabetes Mellitus. PERFORMED BY: [address] [place] [address] PATHOLOGIST MOLDING LINE OPERATOR LUIS M DESAI M.D. Performed By: #### G LULS #### Point of Care testing , Glucose [Mass/Vol] 201 mg/dL Normal The [facility] Comment on above: Result Comment: [facility] Glucose Reference Range is dependent on time and content of last meal. Glucose of more than 200 mg/dL in a nonstressed, ambulatory subject supports the diagnosis of Diabetes Mellitus. PERFORMED BY: [facility] [address] [place] [address] PATHOLOGIST MOLDING LINE OPERATOR LUIS M DESAI M.D. Performed By: #### G LULS #### Point of Care testing , Glucose [Mass/Vol] 201 mg/dL Normal [facility] Comment on above: Result Comment: [facility] Glucose Reference Range is dependent on time and content of last meal. Glucose of more than 200 mg/dL in a nonstressed, ambulatory subject supports the diagnosis of Diabetes Mellitus. PERFORMED BY: [place] [address] PATHOLOGIST MOLDING LINE OPERATOR LUIS M DESAI M.D. Performed By: #### G LULS #### Point of Care testing , PET tumor init tx strat sb-m ton 05-28-2024 PET tumor init tx strat sb-mt [facility] [place] [address] [place] [address] Nuclear Medicine Report Signed Patient: Josie Veliz I MR#: [id number] : 1960 Acct:[id number] Age/Sex: 64 / F ADM Date: 05/28/24 Loc: Room: [facility]: [facility] Attending Dr: Jack Cope II DO Copies to: Sam Em Jr, DO Jack Cope II, DO Ordering Provider: Jack Cope II, DO Date of Service: 05/28/24 PET/PET tumor init tx strat sb-mt: C85.10 - Unspecified B-cell lymphoma, unspecified site PET/CT FUSION IMAGING CLINICAL INFORMATION: Lymphoma. COMPARISON : CT soft tissue neck 03/05/2024 TECHNIQUE: Noncontrasted CT scan from the base of the skull to the upper thigh followed by PET imaging. Multiplanar PET/CT fusion images. Blood Glucose : 183 mg/dL The F-18 FDG 10.38mCi. FINDINGS: Neck: Postsurgical changes are seen in the region of the patient's prior neck mass in the right submandibular region with residual activity is seen within the region, SUV max. Chest:No abnormal FDG activity. Abdomen/pelvis: Activity is seen involving the adrenal glands bilaterally corresponding to mild thickening, SUV max of 3.0. No FDG avid lymph nodes are seen within the abdomen or pelvis. Soft tissue/bones: No abnormal activity. CT findings: No pericardial or pleural effusions. No pneumothorax. No free air or free fluid. PET/PET tumor init tx strat sb-mt IMPRESSION: Postsurgical changes are seen in the region of the patient's prior neck mass in the right submandibular region with residual activity noted. Finding is nonspecific. Residual disease cannot BE excluded. No FDG avid lymph nodes are noted. FDG activity is seen involving the adrenal glands bilaterally corresponding to thickening. Finding is nonspecific. CT follow-up is recommended. Impression dictated by: Sam Em Jr., DBradOBrad05/28/2024 12:58 PM Dictation Location: [id number]-22 Transcribed By: [facility] 05/28/24 1258 Dictated By: Sam Em Jr, DO 05/28/24 1251 Signed By: 05/28/24 1258 Normal [facility] Progress Noteson 04-30-2024 Caseworker Authentication Interface Message Text CC: Chief Complaint Patient presents with Post-op Follow-up Post op follow up HPI 04/24/2024: Josie is here for her first post-op after submandibular gland + lymph node excision. She'd started having pain and swelling a day ago; she's only 2 days post-op. Patient also had some swallowing trouble, but that seems to be better today. She had sent in a picture, and I wanted to evaluate in-person today. Interval Hx: Josie is here for second post-op visit after submandibular gland and lymph node biopsy. She came back last week with an abscess that formed a couple days after surgery. I drained it in-office, and she's packed it ever since, though today she says she can't fit any more packing in. It's mostly better now; she gets a bit of clear, pinkish drainage that comes out, but no pain. She feels good overall. Allergies Levofloxacin, Buspirone, and Other (review comments!) Medications Review of Systems - as per HPI, otherwise the balance of 10 systems is negative Physical Exam Vitals: 04/30/24 0940 Pulse: 77 Temp: 96.4 ???F (35.8 ???C) SpO2: 99% General apperance: WN/WD adult in no apparent distress, sitting in a chair Ability to communicate: normal voice without hoarseness Head and Face: Just a bit of nerve weakness in her right lower lip. She has a symmetric smile, but when she opens her mouth, the right corner of her lip goes up. Salivary Glands: No enlargement or tenderness of parotid or left submandibular gland Ears:External ears are intact without any lesions or masses. Eyes: EOM Intact, sclera anicteric, no conjunctival injection. Nose: External nose midline Neck: Erythema and induration have much improved along the incision site. The drained area does have a bit of serous fluid that drains periodically, but very minimal. I'm unable to express anything on milking the neck, and the pain is gone. CV: No clubbing/cyanosis/edema in hands Respiration: Breathing comfortably, no stridor or stertor Neuro: A AND Ox3, Cranial nerves 2-12 intact and symmetric. Normal affect. Specimen for Surgical Path 04/22/2024 Final Diagnosis A. Right submandibular gland, biopsy Fibromuscular tissue with involvement by lymphoma. B. Right submandibular gland, excisional biopsy Salivary gland tissue with involvement by LOW GRADE B-CELL LYMPHOMA, CONSISTENT WITH EXTRANODAL MARGINAL ZONE LYMPHOMA (see comment, immunohistochemical stains and Ki-67) Assessment/Recommendati ons: Josie Veliz is a 63 year old female who presents today for: 1. B cell lymphoma - This is low grade. I don't know if she'll need treatment right now. - We'll refer her to an oncologist, and I'll send her for a PET scan. - She can follow up with me PRN. 2. 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 - If it hasn't in six months, I told her to let me know. - I'll get her in touch with Dr. Casey at for facial reanimation - I don't think that'll be needed, though. All medical record entries made by the scribe were at my direction and personally dictated by me. I have reviewed and edited the record and confirm that the note above accurately reflects all work, treatment, procedures, and medical decision making performed by me. Dallin Gonzalez MD Normal [facility] Caseworker Authentication Interface Message Text Patient was identified by name and date of . Pharmacy updated Vital signs taken Patient in exam room ready for MD. [facility] MTA Normal [facility] Telephone Encounteron 2024 Caseworker Authentication Interface Message Text I spoke with Geiger. She's having some thick, blood tinged secretions and wanted to make sure that was ok. She feels better than she did yesterday. Hasn't changed the packing yet but will let me know if there are any challenges. Normal [facility] Caseworker Authentication Interface Message Text Pt's calling , Mynor. Pt is having drainage from incision site that he is concerned about. The drainage is red mixed with her saliva. There is no taste to drainage. No fever, chills or pain. Pt is keeping up with pain meds and antibiotic. He wants to make sure that this is normal. Normal [facility] AEROBIC WOUND CULTUREon AEROBIC WOUND CULTURE C PYOG: Normal Oral marichuy isolated GRAM STAIN: 4+ Polymorphonuclear Leukocytes No Squamous Epithelial Cells seen 1+ Gram Positive Cocci Normal [facility] Comment on above: Performed By: #### C PYOG #### [facility] [address] [place], [place] [address] Patient Instructionson 04-24 Caseworker Authentication Interface Message Text Please change strip gauze once per day: -Take pain medication 30 minutes before changing -Clean hands and have gauze or towel under the chin to collect drainage -Pull out strip gauze -Milk incision starting from right ear towards chin until drainage stops coming out -Clean hands/new gloves, then insert end of strip gauze into opening, pushing toward ear with cotton tip applicator. Keep folding in, then leave a small tail out of the incision and cut excess. Re-cap strip gauze -Cover area with gauze and tape if oozing/for comfort Normal [facility] Progress Noteson 04-24-2024 Caseworker Authentication Interface Message Text CC: Chief Complaint Patient presents with Post-op Follow-up Postoperative wound check HPI 04/09/2024: Pt presents today because she noticed a new mass in her neck recently. She reports it was near midline, over the head of the clavicle. It seems to have gone away over the last week or so. Was a little tender. No changes to the submandibular gland mass. Interval Hx: Geiger is here for her first post-op after submandibular gland + lymph node excision. She'd started having pain and swelling a day ago; she's only 2 days post-op. Patient also had some swallowing trouble, but that seems to be better today. She had sent in a picture, and I wanted to evaluate in-person today. PMHx: Diabetes Past Surgical History: Procedure Laterality Date SECTION X2 CHOLECYSTECTOMY CYST ON BACK DENTAL SURGERY EXCISION, GLAND, SUBMANDIBULAR Right 04/22/2024 Procedure: EXCISION, GLAND, SUBMANDIBULAR; Surgeon: Dallin Gonzalez MD; Location: PERIOPERATIVE SERVICES; Service: Otolaryngology TONSILLECTOMY AND ADENOIDECTOMY; < AGE 12 Allergies Levofloxacin, Buspirone, and Other (review comments!) Medications Current Outpatient Medications Medication Sig Dispense Refill atorvastatin (LIPITOR) 20 mg tablet Take 20 mg by mouth. LOW-DOSE ASPIRIN ORAL Wellbutrin SR 200 MG SR tablet diclofenac (VOLTAREN) 75 MG enteric coated tablet Take 75 mg by mouth 2 times daily. metFORMIN HCl ER 500 MG/5ML SRER Omeprazole Magnesium (PRILOSEC OTC ORAL) SITagliptin (Januvia) 100 MG tablet temazepam (RESTORIL) 30 MG capsule tiZANidine (ZANAFLEX) 4 MG tablet TAKE 2 TABLETS BY MOUTH AT BEDTIME FOR 15 DAYS trazodone (DESYREL) 100 MG tablet Take 200 mg by mouth. triamcinolone 0.1 % cream escitalopram (LEXAPRO) 20 MG tablet Take 20 mg by mouth every morning. lamoTRIgine (LaMICtal) 25 MG tablet Take 2 Tablets by mouth. fluticasone (FLONASE) 50 mcg/act nasal inhaler 1 (one) time each day at the same time. LORazepam (ATIVAN) 0.5 MG tablet Take 0.5 mg by mouth daily. No current facility-administered medications for this visit. Family History The patient's family history is not on file.. Social History: Social History Socioeconomic History Marital status: Unknown Highest education level: 12th grade Tobacco Use Smoking status: Former Types: Cigarettes Passive exposure: Never Smokeless tobacco: Never Substance and Sexual Activity Alcohol use: Not Currently Drug use: Never Sexual activity: Yes Partners: Male Comment: Social Drivers of Health Financial Resource Strain: Low Risk (04/06/2024) Overall Financial Resource Strain (CARDIA) Difficulty of Paying Living Expenses: Not hard at all Food Insecurity: No Food Insecurity (04/06/2024) Hunger Vital Sign Worried About Running Out of Food in the Last Year: Never true Ran Out of Food in the Last Year: Never true Transportation Needs: No Transportation Needs (04/06/2024) PRAPARE - Transportation Lack of Transportation (Medical): No Lack of Transportation (Non-Medical): No Physical Activity: Insufficiently Active (04/06/2024) Exercise Vital Sign Days of Exercise per Week: 2 days Minutes of Exercise per Session: 20 min Stress: No Stress Concern Present (04/06/2024) [employer] - Occupational Stress Questionnaire Feeling of Stress : Not at all Social Connections: Socially Integrated (04/06/2024) Social Connection and Isolation Panel [NHANES] Frequency of Communication with Friends and Family: More than three times a week Frequency of Social Gatherings with Friends and Family: Three times a week Attends Orthodoxy Services: More than 4 times per year Active Member of Clubs or Organizations: Yes Attends Club or Organization Meetings: More than 4 times per year Marital Status: Intimate Partner Violence: Not At Risk (04/06/2024) Humiliation, Afraid, Rape, and Kick questionnaire Fear of Current or Ex-Partner: No Emotionally Abused: No Physically Abused: No Sexually Abused: No Review of Systems - as per HPI, otherwise the balance of 10 systems is negative Physical Exam There were no vitals filed for this visit. General apperance: WN/WD adult in no apparent [...] no conjunctival injection. Nose: External nose midline Neck: Swelling and fluctuation over incision site, and a bit of erythema as well. CV: No clubbing/cyanosis/edema in hands Respiration: Breathing comfortably, no stridor or stertor Neuro: A AND Ox3, Cranial nerves 2-12 intact and symmetric. Normal affect. (more content not included)... Normal [facility] Telephone Encounteron 2024 Caseworker Authentication Interface Message Text Patient to see Dr Gonzalez today in [place]. Ophelia Blue RN Normal [facility] Caseworker Authentication Interface Message Text Reached patient's daughter (answered patient's phone), who confirms patient's identifiers. She is informed that Dr Gonzalez would like to see patient this afternoon to make sure she does not have a hematoma. She is given the address and confirms understanding. Ophelia Blue RN Normal [facility] Caseworker Authentication Interface Message Text Called pt and verified. Incision red around black and blue down neck swollen on left side hard Hard to swallow.will send pictures to [facility] Normal [facility] Anesthesia Postprocedure Francisca luationon 04-22-2024 Caseworker Authentication Interface Message Text Anesthesia Postoperative Assessment: Vital Signs (most recent): BP 148/70 Pulse 95 Temp 36.3 ???C (97.3 ???F) (Temporal) Resp 18 Ht 5' 7 (1.702 m) Wt 194 lb (88 kg) SpO2 90% BMI 30.38 kg/m??? Anesthesia Post Evaluation Level of consciousness: awake Post-procedure exam normal. Body temperature, hydration status, PONV and pain evaluated and addressed. Pain management: adequate Hydration status: normal PONV:No nausea/vomiting reported Cardiopulmonary status stable Respiratory status: acceptable Cardiovascular status: acceptable ANESTHESIA NOTABLE EVENTS: No notable events documented. 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 Patient does not have recent labs in our EMR. Below are the labs I was able to find from 02/09. She stated she had labs drawn again in March and they were normal according to her PCP. She is aware of her elevated blood sugars and is following as an outpatient. We checked her sugar today. As patient does not have many medical issues and based off her medication list, ok to proceed with labs from 02/09. [facility] , Sodium 141 136-145 mmol/L Potassium 4.9 3.5-5.1 mmol/L Chloride 103 98-107 mmol/L Carbon Dioxide 27.3 21.0-32.0 mmol/L Anion Gap 15.6 Glucose 313 74-106 mg/dL Blood Urea Nitrogen 19.0 7.0-18.0 mg/dL Creatinine 0.98 0.55-1.02 mg/dL Estimated GFR ( Serenity >60 >=60 mL/min/1.73m 2 Estimated GFR (Non- Rosita 57 >=60 mL/min/1.73m 2 BUN Creatinine Ratio 19.4 Calcium 9.2 8.5-10.1 mg/dL Bilirubin Total 0.6 0.2-1.0 mg/dL Aspartate Amino Transferase 34 15-37 U/L Alanine Aminotransferase 53 14-59 U/L Alkaline Phosphatase 82 46-116 U/L Total Protein 6.7 6.4-8.2 g/dL Albumin Level 3.6 3.4-5.0 g/dL Globulin 3.1 Albumin Globulin Ratio 1.2 Performing Lab: see note ML - [facility] LB T4 Reviewed date:01/26/2024 03:35:27 PM Interpretation: Performing Lab: Notes/Report: [facility] , T4 Thyroxine 8.60 4.80-13.90 ug/dL Performing Lab: see note ML - [facility] LB TSH Reviewed date:01/26/2024 03:35:27 PM Interpretation: Performing Lab: Notes/Report: [facility] Physical Exam Airway Mallampati: III TM distance: Adequate Micrognathia: Not present Jaw opening: Adequate Neck flexion: Adequate Dental PE (+) missing teeth and intact (upper and lower partials) Pulmonary - pulmonary exam normal Comment: Chest clear to auscultation bilaterally Cardiovascular - cardiovascular exam normal Comment: RRR with S1S2; no murmurs, gallops, or rubs Neuro - neurological exam normal Comment: Awake, alert, oriented, No motor deficits and sensation grossly intact Plan Anesthesia plan: general; (ETT) Anesthesia risks / alternatives discussed pre-op Questions answered / anesthesia plan accepted Past medical history, surgical history, allergies, and medications reviewed. Pertinent laboratory tests, EKG, imaging, and consults reviewed and I have personally seen and evaluated the patient, repeating dave portions of the history and physical examination. Attestation: Anesthesia options were discussed with the patient and/or legal account retention representative. The risks, benefits and alternatives were reviewed. Questions regarding anesthesia were answered. Patient and/or legal account retention representative knows such anesthetics and procedures may be performed by Resident physicians, Certified Anesthesiologist Assistants, or Certified Nurse Anesthetists under the supervision of a physician. The patient /or the patient's legal account retention representative agree with the plan for anesthesia. [employer] Normal [facility] Anesthesia Transfer Of Careo n 04-22-2024 Caseworker Authentication Interface Message Text Patient taken to PACU. Patient was awake, comfortable, and stable on arrival. 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] Past Surgical History: Review of patient's past surgical history indicates: CHOLECYSTECTOMY DENTAL SURGERY SECTION X2 CYST ON BACK TONSILLECTOMY AND ADENOIDECTOMY; < AGE 11 Allergies: Levofloxacin, Buspirone, and Other (review comments!) Basic Operating Room Facts: Surgeon(s): Dallin Gonzalez MD Anesthesiologist: Dario Jones MD CAA: John Del Toro EXCISION, GLAND, SUBMANDIBULAR (Right) Intraoperative Events: No acute event ASA: 3 EBL: 10 mL Urine Not documented Lactated Ringers and NaCl 0.9%: Fluid Totals (Filter: LR and NaCl 0.9% Medications Shown) Medication Calculated Total Lactated Ringers 1,000 mL / 1 bag Cell Saver: Not documented Blood Volume Values: Blood Products None MTP Blood: MTP PRBC: Not documented MTP FFP: Not documented MTP PLT: Not documented MTP Cryo: Not documented MTP Whole Blood: Not documented Current Vasoactive Medications: {Vasoactive Medications: None Lines, Drains, Airways Peripheral IV Access: 04/22/24856 20 gauge Right Hand (Active) Site Assessment WNL;Dressing intact 04/22/24901 Infusion Status Port #1 Capped;Patent;Positive blood return 04/22/24901 Airway Insertion Details [REMOVED] Advanced Airway: ETT, Oral;Cuffed #7 (Removed) 04/22/24951 Pre-Oxygenation/ Induction: Mask Rapid Sequence Induction?: Mask Ventilation: Easy;w/oral airway Blade Type: Mac Blade Size: 3 Visualization: Grade 1 Airway Type: ETT, Oral;Cuffed Airway Size: #7 Post Insertion Assessment: Confirmation: Equal bilateral breath sounds, CO2 confirmed # Attempts >1: Special Equipment: Present on Admission?: Previously Removed / Not Present: Removal Reason: Not Removed at Discharge: Removed 04/22/24 1145 Location (cm) 22 04/22/24951 Measured from: Lips 04/22/24951 Secured via: Taped 04/22/24951 Site Assessment WNL 04/22/24951 All non-working IVs have been removed: N/A Laboratory Data: CBC (last 3 years, up to 8 values) No lab values to display. BMP (last 3 years, up to 8 values) No lab values to display. Basic Metabolic Panel No lab values to display. No results found for: INR No result for BNP LFT's (last 3 years, up to 8 values) No lab values to display. Arterial Blood Gases None Hand off Completed: Yes 1. The patient was identified. 2. Pertinent medical history was relayed. 3. A brief discussion was had about any pertinent surgical/ procedural issues. 4. Intraoperative/ anesthetic management issue and concerns were discussed. 5. Plans for the early post-operative period relayed. 6. An opportunity for questions and acknowledgment of understanding of the report was received. JOHN DEL TORO Normal [facility] Blood Attestationon 04-22-19 Caseworker Authentication Interface Message Text Blood Attestation: ATTESTATION OF INFORMED CONSENT FOR BLOOD: The transfusion of blood and/or blood components were discussed with the patient and/or legal account retention representative. The risks, benefits and alternatives were reviewed. Questions regarding blood transfusions were answered. The patient /or the patient's legal account retention representative agree with the plan for transfusion of blood and/or blood components. 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] Procedures: Surgical CPTs Procedures EXCISION, SUBMANDIBULAR (SUBMAXILLARY) GLAND BIOPSY/EXCISION, LYMPH NODE(S); OPEN, DEEP CERVICAL NODE(S) No data filed Surgeon(s): Surgeon(s): Dallin Gonzalez MD Staff: Scrub: Laura Lee CST Multi Purpose Machine Operator Nurse: Melissa Cade RN Claims Configuration Analyst: Chriss Brown MD Anesthesia: General Anesthesiologist: Dario Jones MD CAA: John Del Toro Specimen(s): ID Type Source Tests Collected by Time Destination 1 : Right Tissue Submandibular Gland SPECIMEN FOR SURGICAL PATH Dallin Gonzalez MD 04/22/2024 1033 2 : right LYMPHOMA PROTOCOL Tissue Submandibular Gland SPECIMEN FOR SURGICAL PATH Dallin Gonzalez MD 04/22/2024 1114 Estimated Blood Loss: 5-10 cc Lines/Drains: Peripheral IV Access: 04/22/24 0857 20 gauge Right Hand (Active) Site Assessment WNL;Dressing intact 04/22/24 09 Infusion Status Port #1 Capped;Patent;Positive blood return 04/22/24901 Temporarily Retained Foreign Object: No Findings: Biopsy of specimen sent to frozen and came back as lymphoproliferative disorder Lymph node invading into mylohyoid and submandibular gland Marginal mandibular nerve visualized and intact Lingual nerve and hypoglossal nerves visualized and intact Facial artery and vein clipped Complications: None Status at end of surgery: Stable Activity: Ad Natasha Surgical wound class: Yes, wound was clean. Patient Class: Outpatient Surgery. Is this a patient scheduled as an outpatient that needs to be admitted as an inpatient? No Signed by Dallin Gonzalez MD 04/22/2024 11:24 AM Normal [facility] Interval H AND P Noteon Caseworker Authentication Interface Message Text H AND P reviewed. The patient was examined and there are no changes to the H AND P. Medications, allergies, and pertinent laboratory and diagnostic tests were also reviewed at this time. Surgery still indicated. Normal [facility] [employer] [facility] OP Noteon 04-22-2024 Caseworker Authentication Interface Message Text Attestation signed by Dallin Gonzalez MD at 04/22/2024 12:32 PM Attending Physician Attestation: Teaching Physician Note: I was present for the entirety of the procedure and performed the dave portions of the case as defined by me. I agree with the resident's medical decision making as documented in the resident's note. 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] Procedures: Surgical CPTs Procedures EXCISION, SUBMANDIBULAR (SUBMAXILLARY) GLAND BIOPSY/EXCISION, LYMPH NODE(S); OPEN, DEEP CERVICAL NODE(S) Surgeon: Surgeon(s): Dallin Gonzalez MD Staff: Scrub: Laura Lee CST Multi Purpose Machine Operator Nurse: Melissa Cade RN Claims Configuration Analyst: Chriss Brown MD Anesthesia: General Anesthesiologist: Dario Jones MD CAA: John Del Toro Specimen(s): ID Type Source Tests Collected by Time Destination 1 : Right Tissue Submandibular Gland SPECIMEN FOR SURGICAL PATH Dallin Gonzalez MD 04/22/2024 1033 2 : Right- LYMPHOMA PROTOCOL Tissue Submandibular Gland SPECIMEN FOR SURGICAL PATH Dallin Gonzalez MD 04/22/2024 1114 Estimated Blood Loss: 5-10 cc Findings: Friable, irregular pale tissue involving the parenchyma of the right submandibular gland and surrounding soft tissue Frozen analysis concerning for lymphoproliferative lesion Marginal mandibular, lingual, and hypoglossal nerves identified and preserved Facial vein and artery ligated Complications: None Status at end of surgery: Stable Operative Indications: This patient is a 63-year-old female who presented to outpatient ENT Clinic for evaluation of the right neck mass. CT scan was concerning for submandibular lesion and decision was made to proceed to the operating room for excision. She presents today for surgery. Procedure in Detail: Patient was seen and evaluated in the pre-operative area. Informed consent was obtained after discussing the risks, benefits and indications for the procedure. The patient was taken back to the operating room by the anesthesia team. General anesthesia was induced and patient was orotracheally intubated without difficulty. Patient was then turned 90 degrees towards the ENT team. Appropriate timeout was performed. On approximately 6 cm incision was planned out in an existing horizontal neck crease somewhat cm below the inferior border of the mandible. This was infiltrated with 1% lidocaine with 1:100 1000 units of epinephrine. Patient was then prepped and draped in a sterile fashion. 15 blade was used to make an incision through the skin and subcutaneous tissue. Monopolar cautery was used to dissect through the platysma. Small subplatysmal flaps were elevated superiorly to expose the fascia overlying the submandibular gland. The inferior aspect of the gland was readily identified as was the digastric tendon. We dissected along the anterior belly of the digastric and freed away the submandibular gland from this muscle. As we dissected along the deeper aspect of the gland, the tissue became increasingly more irregular, pale, and friable. This was also similar to our dissection near the inferior border of the mandible in the perifacial region. A small sample of tissue was sent for frozen specimenanalysis and concerning for lymphoproliferative lesion. The facial veinand artery were identified in their usual anatomic location and ligated and divided. The marginal mandibular nerve was additionally identified in the lateral aspect of our incision and reflected superiorly for the remainder of the case. We continued our circumferential dissection around the lesion until we reached the floor of level 1B. The surrounding lymph nodes of level 1B were included with our specimen. There was a large degree of adherence of the gland to the surrounding musculature including the posterior belly of the digastric and the mylohyoid muscle. We had to dissect a cuff of the mylohyoid muscle away to avoid dissecting directly through the mass itself. When the specimen was adequately mobilized, it was freed from the floor and we identified the lingual nerve, submandibular ganglion, and hypoglossal nerve and their usual anatomic location. The cut end of the submandibular duct was identified and ligated. An additional enlarged lymph node was excised s (more content not included)... Normal [facility] LEUKEMIA/LYMPHOMA PANEL FOR TISSUE/FLUID ORDERABLEon 04-21-2024 LEUKEMIA/LYMPHOMA PANEL FOR TISSUE/FLUID ORDERABLE Flow Cytometry Report Case: [id number] Authorizing Provider: Dallin Gonzalez MD Collected: 04/21/2024 1033 Ordering Location: [facility] Main OR Received: 04/22/2024 1211 Pathologist: Krystin Tidwell MD Specimen: Tissue, Submandibular gland *This test was developed and its performance characteristics determined by the Flow Cytometry Laboratory at [facility]. It has not been cleared or approved by the U.S. Food and Drug Administration. The FDA has determined that such approval is not necessary. NISxmzj79MFJXOn1yNpFRLs Xi48/IOSafWLFkk8ZxIVxnL Vo6PRnhDERkA1HdtYlvUYEw HL5NN3Tex0TjJiukEIX2Qsh 1GdMdBaogU2BbXCXmw39RYG KgDDV4MhXvLLSlUWDsXoH2E kIyUPKwGAGdXY6Sj5FBIDNa ONK3OkLxTYRqSJDfOsC3OxT aGDZtEGNxDP1SqfGtcG5gCM FhsWHtI2xddDSpftQWy4Ceq 4FhkHevdwnJOnPhGp4CTuBt VY5ruv0BCGGcYR0xkg9DUAE 1VZ6CpRh9LCTtJ5NeOWTqNF Cpi4JaMD6OVU1pwIihAiC0I z4+YNrxBVX1nyBcoE6PLTRa UKfhB2bZ/16g/oJfu7ROhD1 7z63YhgD7kWVK7lja3RTBfs /K4jPIy9kPNor7/wJbl0NND T+YWipnpI0/9ZpJtoLCbP9w LIWo//9uqfNjfS7kg22+jBI psjEk6g+X1OTnGU7r/8kGkQ cBx1HnJjE/+mk2bylL3P91o ZQnBp+KzrEIVBKLQ+kFxf+M ExtmrjOk0tMOgQrPfZwQJ2j 9ouG4nFuR+TpZIzt/fXVyPe i//mUgLi/G6yri8qZ3tec/u sFdAyeeEUPXRA9VrsPDeF7G Enwki6Gp19jsp1LleTpqu7x U8rFdasqTzJVz+XLyOXOILf ZLbFGSlNjOptnnbJrORwfi8 w2gPEYmxlGpEl/edmSnPk1g cF2l+QCr811rNhKKhg/X4I9 dk+6xPiGHb4CcEWUAM/p8ee oQtIwjuebKyTQ/EG/SR/RADHA QY/cGhEJGQQkHcbdePmoi8V 7P3FpESe9HQQc1btoQcsP5A LmXTH5lAeNgSMG4QmFk77EU wu9rc7t2S64CHvohB54UlUs rJkF8rwXUCWnJW8igaR7hHK 0yAj9kKpMAdfl4xb807dajX I6j0icYlAbkYC6bTqn5QGFL z6SMPn3CRNfKUojw8uBpnTE fYIJVFUXLb7AnTzvjYjiEr6 mB/D0Dd1bISyB6SJ/A3AH19 mQSfhWBjv0jA0//jmM9QWi8 B0sGDGBhrEPeC9i+CHpYIGu jUqZ1DojM7IlMNUQKqQ19CM IG3uaQOVemxsRJ42wbAEBnb Ycvh0diLoRFCQSc0rZ46QEV y7cPfE1x7mKCRB/GDN/PcUK 2M+P3RJ6Veu/SA28jRxHxTq VW8z6p20SxofoXdZXoFS/Xp iy+6kl7zAIMJ8XiL9wtZsnG mDKuhwn7n+cRTq/2quz4Gs7 yVThs87h3K5iSmC1u7kRBO3 r0e8s4Rm0xwr+ymvVz2gtC/ UIiHFTocLxbh5ee+iFKBW0V y/mygkqgsXhw0bIBYFoeOei fXmyIrb7K2OCivI2OG8EhjE 5+m9WLky26h7WAdjzWPBJGu mRTq/M7V5UYuXSZ4vhWXu1P F7dIY0C8lN32X3EBv0hsJtp OQ+M42n0CeuDn3h1A7IJB+j QdkyqVeUNVAKC39JEzoYR9L gbh5uZ+t5DWu0sXOTBZ8BGx mbsZAUhf1DGH/edJPDlniDq Gkk9hFq9IHyMhgbnf/i3TzP lvfLLK+sbSdMais/1CqqFOm NFt2qg76oXtrJ83NtPwT4kA RV9hPLvH7ES0JSRVvdjqY7Y LEfezIvDJyXk3igCvIn0E8w KhpWBfUAnjkauKRxNC1YgwE SZ50/bYH0t9mNX71738DNQW ps7qwsMqQgnSKdhRsYU0yRq hEOsJSZvHJYK2ZBTt8cSLBl r0FpxHOhZosvlq5qj+J7prG c0VOjPhIhLq0Sc2Xi1U1yCf j4rZUpNLzJmHptx9Z+Npedf rG9dqfI+S3pnsHqoucQteHM 2dFfAz888Knos3I1hus0Gy5 F9svyZxhXE1G+twRIE7PhWN boaFTlqZkOGjJVDRCvOod66 uztRhBs0NRo7HIPbNsaTGdB GMsde3qP6Vlavgzi809vTBY kSVxKtiS4Iu8/8GQ3DoJsCC lEBsK64f3SPprEcm4E3K3Gx v5nlX06j0T4yG/9JP45AlEK wBev90JKxbC2QMm4lGEUbbR joa34SvWRL5uchuRSCt87Vt G5XmqGO9dx4MUzkkPb11ie4 zwmCOry9+F6DFNqmEGDsVRe 4FY2VCYXN9citZjMbRRJ75c KrwIlv6I6nsUU/P2uhvhLrc jua3EIWOxp9oXcOgeYADRYZ FE8iGPSbHKLtYcgDwCoshTn YUCW0t7BSdrX0x4PTb9Mie7 R1VHJYc8mYPZ3oON8Ha0q5V RwX8ydcRh4T2aW+OB/G7jOd wvEO0lLrmP2uxhsl/NFUsbW Hyl9myUvQ7DAIaVSBSPzK9M Plp4y0SEtQ6zIcBCf/6Ymi/ g8i6xxu04bjhYCY8XNuByC7 oV8gxNGvG7ktt9gJ0A5ZMo2 Y0JYbFIKTEDKtVFLomuHkJM yBijnii9voIzRnH8fSY0m3U ZWpu1+AaC0VfRKzGlbcESf1 PGIcJxgmpjOztqdJKvrx6CN kgAKWNIxZLVA96A7BkyapQp 1r10RAPTtYXlABs5WKeHwm3 YsaK+k58es7qLIBJEivLMyx EJnWOOIQNR2jei8tbH9EbFT AIRtZtVHqaAzbCDLrL6MdyB uRyQTYX59a+EEXJbeA9AbvE ZmTDtYtLufQNQaGXADPSJ0s 0KtWfZ5BTBmBCdPqoFDLYRP dts0ZrFNqdFbPdldoDxHsTU ItnGu6DwCrRLwkYbPOsrOsx poVdwglbDybIbz41hDt/Zaz vgRfgk0LOqbqBUYv7GlXUZc O27rDDQXVqqQRdoxDYHhZwx /LCZO8EO1xZW8MCQtkXXyrH B4QtzgMHaH/C2Fx0d27o78i xegv/sE4j6Y7IoT3l7pOdn9 ybSWSBnxW7H2P2CDHGCJbJE J6seCC70mUWR3osxV07acK9 brfqXsEQ05/ZcKblup+D1Va PB5JefVRY2cgfTn+6rRQJWK Z9ZBNi0wCEcbYZQ0gf03sAO 7N0LEz9oa2Opc1v9iS9CpkF mYeMD7grG1E8IHjjpgc0g70 IJSaPzw+evkec9nw2slpGxb EIIBKiIXWlGhPmwiHKHmg3G HKraHIx23iN9uOzEn1GBTgc Rk7vOP729CEJzw57pszgSNc Ml9Js4zIWlESwtr4JDHg7mB 5Ry+LpKNAUDUzd1L33HgeSu vtSFLI4bewLO4zYFrxlMs+T L1S9jy7ss/h0FDHE9u94lcB oRuunmftSa2t/iOJXNUMuxa SY58lk8IJPVzRJIeAzNgDNB fQzYiz1fd2vGOWGZGDLwEaf AUEWA2DQMePuHOa2bbxBMqJ NsAZwrfyCxauHiL/Er5nwKO Twp0gMbfqzPfzPVG6T2iqTe 7exI5Ei/BX75ztD3+lC470W CNNtKf6Dd0bdcvmiGAPiL7D Bx0DTzdm8M/zPFSQk+WDxF6 0qWQjwKvfBWS/cmmY3WAk6s V1X+xm0EHnKO8Jfsl5uu87d M9pwih76FisPi+B513/53KH KSllWkZqu8OWVWOvgLt9S39 XNgF6NMMrSObrZwwCAklb8o 9tnzls1PeBg17eIoL7+nwLh uJf/ROF3m+oP3lR9n0p3lD1 [id number] /PlncXp+kbSGaj18HaB1UQY +olr2jo04cE8bRaOuGUkDpj ChbQiR4acZng4PhYpuQmLqg KnjB9SJnTDiZgJuhzhpS0HJ IVo9S2u9BCIyQjk0Q9ajHYe 44SkFH+sR7I4tweZMTqP4rx te27razuzxNSLYmRmbEkj6b POoY9iojha90aH42WlT0TlG VF75YIt7Jap3vTcm5w15D5a B9rzY1PKJV4QSxxZJx141m/ 9plBO6Scp99/mA4YRZm2KLb sq7pzKIFoZPbEQATWLvnpH/ uY2BnSlQ0nFV5P1vC4f7DgO 1KmJe+zgxQcP3Nx0d4G6ZEG dbvkammtb+kCUqTtbIqhZD9 mED5uv+pg/+LP99J0F0lARY FoEbMQE1plRdjZ0EJQ8ht2X lPKc1PJWmd1SuOJyeWMj9GV kpDXSjU1X8rGIwWDTdFK7NW UZzWA1YDAOuwhBbGsGvLLNY LkTaZQXrGvVfo7MdA4HcVPR hLXYGTSraCTSyU84qGFyeGt 00QMatFACjGbVhMLw3Jc5LO dSzQSCxV24nlXXndJXcKOQk UPFSJpLzQCWcH7ShdAFfAUh pR1WsW9UaDI5diQMsVX6xzF FsR4KbH3IndtqiTCYVKbKzW SBmYWxzZSAvSyBmYWxzZSA+ Ts3UTSU+Dc5GEW8fh2OxVXq 1AESxq3FuTZzlSYt6D9QvaX RlciAvRmxhdGVEZWNvZGUgL 7evehl9uEZ2NlU+Ko4NRTYk sXQjJD6POysBuTDkz6hnUZu vJ+0/kXfBfxx2zEA5fggXs4 aOBXSbSsc0pIHSuQT1kSnHm z+sqRWLdzSSdjN95NN9bK9A DFD+saN13EZPjU5dZLcpubJ NZ8UwFcVjeT5nEE9xMViFFj kwCg5ghfsUANgYDPnW9wdq (more content not included)... Normal [facility] Comment on above: Performed By: #### L LTISSFLDA ####[facility] [id number] [place], [address] H AND P (View-Only)on 2024 Caseworker Authentication Interface Message Text CC: Chief Complaint Patient presents with Local swelling/papule/lump/ma ss New thumb sized thyroid cyst HPI: This is a 63 year old female here for f/u of a right submandibular gland mass. The HPI from his last visit is copied below: Josie Veliz is a 63 year old [...] the report showed atypia of undetermined significance. Interval Hx: Pt presents today because she noticed a new mass in her neck recently. She reports it was near midline, over the head of the clavicle. It seems to have gone away over the last week or so. Was a little tender. No changes to the submandibular gland mass. PMHx: Diabetes Past Surgical History: Procedure Laterality Date SECTION X2 CHOLECYSTECTOMY CYST ON BACK DENTAL SURGERY TONSILLECTOMY AND ADENOIDECTOMY; < AGE 11 Allergies Levofloxacin, Buspirone, and Other (review comments!) Medications Current Outpatient Medications Medication Sig Dispense Refill atorvastatin (LIPITOR) 20 mg tablet Take 20 mg by mouth. LOW-DOSE ASPIRIN ORAL Wellbutrin SR 200 MG SR tablet diclofenac (VOLTAREN) 75 MG enteric coated tablet Take 75 mg by mouth 2 times daily. metFORMIN HCl ER 500 MG/5ML SRER Omeprazole Magnesium (PRILOSEC OTC ORAL) SITagliptin (Januvia) 100 MG tablet temazepam (RESTORIL) 30 MG capsule tiZANidine (ZANAFLEX) 4 MG tablet TAKE 2 TABLETS BY MOUTH AT BEDTIME FOR 15 DAYS trazodone (DESYREL) 100 MG tablet Take 200 mg by mouth. triamcinolone 0.1 % cream escitalopram (LEXAPRO) 20 MG tablet Take 20 mg by mouth every morning. lamoTRIgine (LaMICtal) 25 MG tablet Take 2 Tablets by mouth. fluticasone (FLONASE) 50 mcg/act nasal inhaler 1 (one) time each day at the same time. LORazepam (ATIVAN) 0.5 MG tablet Take 0.5 mg by mouth daily. No current facility-administered medications for this visit. Family History The patient's family history is not on file.. Social History: Social History Socioeconomic History Marital status: Unknown Highest education level: 12th grade Tobacco Use Smoking status: Former Types: Cigarettes Passive exposure: Never Smokeless tobacco: Never Substance and Sexual Activity Alcohol use: Not Currently Drug use: Never Sexual activity: Yes Partners: Male Comment: Social Drivers of Health Financial Resource Strain: Low Risk (04/06/2024) Overall Financial Resource Strain (CARDIA) Difficulty of Paying Living Expenses: Not hard at all Food Insecurity: No Food Insecurity (04/06/2024) Hunger Vital Sign Worried About Running Out of Food in the Last Year: Never true Ran Out of Food in the Last Year: Never true Transportation Needs: No Transportation Needs (04/06/2024) PRAPARE - Transportation Lack of Transportation (Medical): No Lack of Transportation (Non-Medical): No Physical Activity: Insufficiently Active (04/06/2024) Exercise Vital Sign Days of Exercise per Week: 2 days Minutes of Exercise per Session: 20 min Stress: No Stress Concern Present (04/06/2024) [place] [employer] - Occupational Stress Questionnaire Feeling of Stress : Not at all Social Connections: Socially Integrated (04/06/2024) Social Connection and Isolation Panel [NHANES] Frequency of Communication with Friends and Family: More than three times a week Frequency of Social Gatherings with Friends and Family: Three times a week Attends Orthodoxy Services: More than 4 times per year Active Member of Clubs or Organizations: Yes Attends Club or Organization Meetings: More than 4 times per year Marital Status: Intimate Partner Violence: Not At Risk (04/06/2024) Humiliation, Afraid, Rape, and Kick questionnaire Fear of Current or Ex-Partner: No Emotionally Abused: No Physically Abused: No Sexually Abused: No Review of Systems - as per HPI, otherwise the balance of 10 systems is negative Physical Exam Vitals: 04/09/24 1417 Pulse: 92 Temp: 97.1 ???F (36.2 ???C) SpO2: 98% General apperance: WN/WD adult in no apparent [...] when doing so, but everything looks normal (more content not included)... Normal [facility] Progress Noteson 04-09-2024 Caseworker Authentication Interface Message Text Patient identfied by name and date of Pharmacy updated Vital signs taken Patent in exam room ready for MD Normal [facility] PAT Call Historyon Caseworker Authentication Interface Message Text Telephone History Geiger Mario Alt, [id number] 04/08/2024 63 year old 194 lbs 5' 7 Patient was identified by name and date of . Constance Arellano RN Date of Surgery: 04/22/2024 Surgeon: SATHYA Type of Surgery: EXCISION, GLAND, SUBMANDIBULAR HISTORY OF PRESENT ILLNESS: PAT Telephone History for scheduled surgery with [facility] Row Name 04/08/24 0843 History of sleep apnea? 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] Past Medical History and Review of Systems Pulmonary (+) sleep apnea Comment: FORMER SMOKER Dental ROS (+) teeth problems (PARTAILS) missing Endo (+) diabetes mellitus type 2 poorly controlled, obesity Comment: THYROID NODE - 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 (+) post-menopausal (2 C-SEC) Neuro/Psych (+) depression, anxiety/panic attacks Cardiovascular - negative ROS GI/Hepatic/Renal Comment: SUBMANDIBULAR GLAND MASS Heme/Other - negative ROS Other ROS: GLASSES, DRY EYES RASH LEFT LEG- PAST SURGICAL HISTORY: Past Surgical History: Procedure Laterality Date SECTION X2 CHOLECYSTECTOMY CYST ON BACK DENTAL SURGERY TONSILLECTOMY AND ADENOIDECTOMY; < AGE 11 SOCIAL HISTORY: Social History Socioeconomic History Marital status: Unknown Highest education level: 12th grade Tobacco Use Smoking status: Former Types: Cigarettes Passive exposure: Never Smokeless tobacco: Never Substance and Sexual Activity Alcohol use: Not Currently Drug use: Never Sexual activity: Yes Partners: Male Comment: Social Drivers of Health Financial Resource Strain: Low Risk (04/06/2024) Overall Financial Resource Strain (CARDIA) Difficulty of Paying Living Expenses: Not hard at all Food Insecurity: No Food Insecurity (04/06/2024) Hunger Vital Sign Worried About Running Out of Food in the Last Year: Never true Ran Out of Food in the Last Year: Never true Transportation Needs: No Transportation Needs (04/06/2024) PRAPARE - Transportation Lack of Transportation (Medical): No Lack of Transportation (Non-Medical): No Physical Activity: Insufficiently Active (04/06/2024) Exercise Vital Sign Days of Exercise per Week: 2 days Minutes of Exercise per Session: 20 min Stress: No Stress Concern Present (04/06/2024) [place] [employer] - Occupational Stress Questionnaire Feeling of Stress : Not at all Social Connections: Socially Integrated (04/06/2024) Social Connection and Isolation Panel [NHANES] Frequency of Communication with Friends and Family: More than three times a week Frequency of Social Gatherings with Friends and Family: Three times a week Attends Orthodoxy Services: More than 4 times per year Active Member of Clubs or Organizations: Yes Attends Club or Organization Meetings: More than 4 times per year Marital Status: Intimate Partner Violence: Not At Risk (04/06/2024) Humiliation, Afraid, Rape, and Kick questionnaire Fear of Current or Ex-Partner: No Emotionally Abused: No Physically Abused: No Sexually Abused: No PAIN ASSESSMENT: Severity: 0 Location: N/A LABORATORY DATA: Type AND Screen (Last result in the past 30 days) No lab values to display. CBC (last 3 years, up to 8 values) No lab values to display. BMP (last 3 years, up to 8 values) No lab values to display. Basic Metabolic Panel No lab values to display. PT/PTT/INR (last 3 years, up to 8 values) No lab values to display. Arterial Blood Gases None No result for BNP LFT's (last 3 years, up to 8 values) No lab values to display. Urinalysis No lab values to display. No results found for: HBA1C TESTS REVIEWED: CXRay: No Chest x-ray found EKG: Last ECG Date: Not Found ECHO: Echocardiogram date: Not Found No results found for this basename: LVEF Stress test date: Last StressTest: none found going back to 03/18/2024 CURRENT MEDICATION LIST: Current Outpatient Medications Medication Sig Dispense Refill LOW-DOSE ASPIRIN ORAL Wellbutrin SR 200 MG SR tablet diclofenac (VOLTAREN) 75 MG enteric coated tablet Take 75 mg by mouth 2 times daily. metFORMIN HCl ER 500 MG/5ML SRER Omeprazole Magnesium (PRILOSEC OTC ORAL) SITagliptin (Januvia) 100 MG tablet temazepam (RESTORIL) 30 MG capsule tiZANidine (ZANAFLEX) 4 MG tablet TAKE 2 TABLETS BY MOUTH AT BEDTIME FOR 15 DAYS trazodone (DESYREL) 100 MG tablet Take 200 mg by mouth. triamcinolone 0.1 % cream escitalopram (LEXAPRO) 20 MG tablet Take 20 mg by mouth every morning. lamoTRIgine (LaMICtal) 25 MG tablet Take 2 Tablets by mouth (more content not included)... Normal [facility] Telephone Encounteron 2024 Caseworker Authentication Interface Message Text Spoke with patient, who is scheduled for appointment 04/09/[address] Gonzalez at [facility]. She acknowledges understanding of date, time and location. Ophelia Blue RN Normal [facility] Caseworker Authentication Interface Message Text Patient called to [...] speak with them. Thank you. Normal [facility] ALL SED RATEon 03-22-2024 [facility] SED RATE 6 [facility] are [facility] Progress Noteson 03-21-2024 Caseworker Authentication Interface Message Text CC: Chief Complaint [...] copy of the scan on my phone. All medical record entries made by the scribe were at my direction and personally dictated by me. I have reviewed and edited the record and confirm that the note above accurately reflects all work, treatment, procedures, and medical decision making performed by me. Dallin Gonzalez MD Normal [facility] 03-05-2024 L --- Specimen: [id number] Received: 03/06/24 Status: YULY Ashby Num: [id number] Spec Type: Cytology Subm Dr: Maria R Garcia MD Tissues: A FNA SLIDES NOPATH (RIGHT SUBMANDIBULAR MASS) Procedures: HE/2, Cyto Int and Re, PAPSTN/6 Age/ Patient Sex Location Account Attending Physician Josie Veliz I 63/F LABELL [id number] Maria R Garcia MD SPEC NUM: [id number] RECD: 03/06/24 STATUS: YULY ASHBY NUM: [id number] JOSE: 03/05/24-[address]: Maria R Garcia MD ENTERED: 03/06/[address] [facility] [address]: Gregoria Moreira MD SPEC TYPE: Cytology DEPT: [facility] ENTERED BY: [id number] RECV BY: [id number] ORDERED: HE/2, Cyto Int and Re, PAPSTN/6 [...] preparations are prepared for microscopic examination. Specimen: [id number] Received: 03/06/24 Status: YULY Isma Num: [id number] Spec Type: Cytology Subm Dr: Maria R Garcia MD Tissues: A FNA SLIDES NOPATH (RIGHT SUBMANDIBULAR MASS) Procedures: HE/2, Cyto Int and Re, PAPSTN/6 Patient: Josie Veliz I [id number] (Continued) Specimen: [id number] Received: 03/06/24 (Continued) Gross Description (Continued) Signed (signature on file) Zeina Jeffers MD 03/12/24 143 Specimen: [id number] Received: 03/06/24 Status: YULY Ashby Num: [id number] Spec Type: Cytology Subm Dr: Maria R Garcia MD Tissues: A FNA SLIDES NOPATH (RIGHT SUBMANDIBULAR MASS) Procedures: HE/2, Cyto Int and Re, PAPSTN/6 Patient: Josie Veliz I [id number] (Continued) Specimen: [id number] Received: 03/06/24 (Continued) Gross Description (Continued) Also received are 6 spray fixed smeared slides for pap for microscopic examination. (CC/ar) Microscopic Description Microscopic examinations are performed supporting the above interpretation CPT Codes 44005 Specimen: [id number] Received: 03/06/24 Status: YULY Ashby Num: [id number] Spec Type: Cytology Subm Dr: Maria R Garcia MD Tissues: A FNA SLIDES NOPATH (RIGHT SUBMANDIBULAR MASS) Procedures: HE/2, Cyto Int and Re, PAPSTN/6 Patient: Josie Veliz I [id number] (Continued) Signed (signature on file) Zeina Jeffers MD 03/12/24 1432 Normal [facility] CBC AUTO DIFFon 05-19-2022 BASO # 0.0 103/ul Normal 0.0-0.1 [facility] Comment on above: Performed By: #### P OCGLUC #### [facility] [address] [place] [address] Dr. Nan Jeffers Basophils/100 WBC (Bld) 0.2 % Normal 0.2-2.0 [facility] Comment on above: Performed By: #### P OCGLUC #### [facility] [address] [place] [address] Dr. Nan Jeffers EO # 0.0 103/ul Normal 0.0-0.7 [facility] Comment on above: Performed By: #### P OCGLUC #### [facility] [address] [place] [address] Dr. Nan Jeffers Eosinophils/100 WBC (Bld) 0.0 % Critically low 0.9-7.0 [facility] Comment on above: Performed By: #### P OCGLUC #### [facility] [address] [place] [address] Dr. Nan Jeffers Erythrocyte distribution width (RBC) [Ratio] 12.9 % Normal 11.0-15.0 [facility] Comment on above: Performed By: #### P OCGLUC #### [facility] [address] [place] [address] Dr. Nan Jeffers Hematocrit (Bld) [Volume fraction] 33.1 % Critically low 36.0-48.0 [facility] Comment on above: Performed By: #### P OCGLUC #### [facility] [address] [place] [address] Dr. Nan Jeffers Hemoglobin (Bld) [Mass/Vol] 10.8 g/dL Critically low 12.0-16.0 [facility] Comment on above: Performed By: #### P OCGLUC #### [facility] [address] [place] [address] Dr. Nan Jeffers IG # 0.22 10e3/ul Critically high 0.00-0.03 [facility] Comment on above: Performed By: #### P OCGLUC #### [facility] [address] [place] [address] Dr. Nan Jeffers IG % 1.6 % Critically high 0.0-0.5 [facility] Comment on above: Performed By: #### P OCGLUC #### [facility] [address] [place] [address] Dr. Nan Jeffers LYMPH # 2.1 103/ul Normal 1.2-3.8 [facility] Comment on above: Performed By: #### P OCGLUC #### [facility] [address] [place] [address] Dr. Nan Jeffers Lymphocytes/100 WBC (Bld) 15.3 % Critically low 20.5-60.0 [facility] Comment on above: Performed By: #### P OCGLUC #### [facility] [address] [place] [address] Dr. Nan Jeffers MANUAL DIFF REQ NO Normal [facility] Comment on above: Performed By: #### P OCGLUC #### [facility] [address] [place] [address] Dr. Nan Jeffers MCH (RBC) [Entitic mass] 28.1 pg Normal 26.7-34.0 [facility] Comment on above: Performed By: #### P OCGLUC #### [facility] [address] [place] [address] Dr. Nan Jeffers MCHC (RBC) [Mass/Vol] 32.6 g/dL Normal 29.9-35.2 [facility] Comment on above: Performed By: #### P OCGLUC #### [facility] [address] [place] [address] Dr. Nan Jeffers MCV (RBC) [Entitic vol] 86.0 fL Normal 81.0-99.0 [facility] Comment on above: Performed By: #### P OCGLUC #### [facility] [address] [place] [address] Dr. Nan Jeffers MONO # 1.2 103/ul Critically high 0.3-0.8 [facility] Comment on above: Performed By: #### P OCGLUC #### [facility] [address] [address] [address] Nan Jeffers Monocytes/100 WBC (Bld) 8.8 % Normal 1.7-12.0 [facility] Comment on above: Performed By: #### P OCGLUC #### [facility] [address] [address] [address] Nan Jeffers NEUT # 10.2 103/ul Critically high 1.4-6.5 [facility] Comment on above: Performed By: #### P OCGLUC #### [facility] [address] [place] [address] Dr. Nan Jeffers Neutrophils/100 WBC (Bld) 74.1 % Normal 43.0-75.0 [facility] Comment on above: Performed By: #### P OCGLUC #### [facility] [address] [place] [address] Dr. Nan Jeffers Platelet mean volume (Bld) [Entitic vol] 9.6 fL Normal 9.5-13.5 [facility] Comment on above: Performed By: #### P OCGLUC #### [facility] [address] [place] [address] Dr. Nan Jeffers PLT 254 103/ul Normal 150-450 [facility] Comment on above: Performed By: #### P OCGLUC #### [facility] [address] [place] [address] Dr. Nan Jeffers RBC 3.85 106/ul Critically low 4.20-5.40 [facility] Comment on above: Performed By: #### P OCGLUC #### [facility] [address] [place] [address] Dr. Nan Jeffers WBC 13.8 103/ul Critically high 4.0-11.0 [facility] Comment on above: Performed By: #### P OCGLUC #### [facility] [address] [place] [address] Dr. Nan Jeffers POINT OF CARE GLUCOSEon 03-0 Glucose [Mass/Vol] 317 mg/dL Critically high 74-106 [facility] Comment on above: Performed By: #### P OCGLUC #### [facility] [address] [place] [address] Dr. Nan Jeffers Glucose [Mass/Vol] 338 mg/dL Critically high 74-106 [facility] Comment on above: Performed By: #### P OCGLUC #### [facility] [address] [place] [address] Dr. Nan Jeffers PROF 14(COMP METB)on 023 Albumin [Mass/Vol] 3.2 g/dL Critically low 3.4-5.0 [facility] Comment on above: Performed By: #### P OCGLUC #### [facility] [address] [place] [address] Dr. Nan Jeffers Albumin/Globulin [Mass ratio] 1.3 {ratio} Normal [facility] Comment on above: Performed By: #### P OCGLUC #### [facility] [address] [place] [address] Dr. Nan Jeffers ALP [Catalytic activity/Vol] 56 U/L Normal 46-116 [facility] Comment on above: Performed By: #### P OCGLUC #### [facility] [address] [place] [address] Dr. Nan Jeffers ALT [Catalytic activity/Vol] 32 U/L Normal 14-59 [facility] Comment on above: Performed By: #### P OCGLUC #### [facility] [address] [place] [address] Dr. Nan Jeffers Anion gap [Moles/Vol] 14.9 mmol/L Normal [facility] Comment on above: Performed By: #### P OCGLUC #### [facility] [address] [place] [address] Dr. Nan Jeffers AST [Catalytic activity/Vol] 26 U/L Normal 15-37 [facility] Comment on above: Performed By: #### P OCGLUC #### [facility] [address] [place] [address] Dr. Nan Jeffers Bilirubin [Mass/Vol] 0.2 mg/dL Normal 0.2-1.0 [facility] Comment on above: Performed By: #### P OCGLUC #### [facility] [address] [address] [address] Nan Jeffers Calcium [Mass/Vol] 8.9 mg/dL Normal 8.5-10.1 [facility] Comment on above: Performed By: #### P OCGLUC #### [facility] [address] [address] [address] Nan Jeffers Chloride [Moles/Vol] 103 mmol/L Normal 98-107 [facility] Comment on above: Performed By: #### P OCGLUC #### [facility] [address] [address] [address] Nan Jeffers CO2 [Moles/Vol] 24.0 mmol/L Normal 21.0-32.0 [facility] Comment on above: Performed By: #### P OCGLUC #### [facility] [address] [address] [address] Nan Jeffers Creatinine [Mass/Vol] 0.84 mg/dL Normal 0.55-1.02 [facility] Comment on above: Performed By: #### P OCGLUC #### [facility] [address] [address] [address] Nan Jeffers EGFR-AF SLOVENIAN >60 Normal >=60 [facility] Comment on above: Performed By: #### P OCGLUC #### [facility] [address] [address] [address] Nan Jeffers EGFR-NON AF SLOVENIAN >60 Normal >=60 [facility] Comment on above: Performed By: #### P OCGLUC #### [facility] [address] [address] [address] Nan Jeffers Globulin (S) [Mass/Vol] 2.4 g/dL Normal [facility] Comment on above: Performed By: #### P OCGLUC #### [facility] [address] [address] [address] Nan Jeffers Glucose [Mass/Vol] 291 mg/dL Critically high 74-106 [facility] Comment on above: Performed By: #### P OCGLUC #### [facility] [address] [address] [address] Nan Jeffers Potassium [Moles/Vol] 3.9 mmol/L Normal 3.5-5.1 [facility] Comment on above: Performed By: #### P OCGLUC #### [facility] [address] [place] [address] Dr. Nan Jeffers Protein [Mass/Vol] 5.6 g/dL Critically low 6.4-8.2 [facility] Comment on above: Performed By: #### P OCGLUC #### [facility] [address] [place] [address] Dr. Nan Jeffers Sodium [Moles/Vol] 138 mmol/L Normal 136-145 [facility] Comment on above: Performed By: #### P OCGLUC #### [facility] [address] [place] [address] Dr. Nan Jeffers Urea nitrogen [Mass/Vol] 18.0 mg/dL Normal 7.0-18.0 [facility] Comment on above: Performed By: #### P OCGLUC #### [facility] [address] [place] [address] Dr. Nan Jeffers Urea nitrogen/Creatinin e [Mass ratio] 21.4 mg/mg Normal [facility] Comment on above: Performed By: #### P OCGLUC #### [facility] [address] [place] [address] Dr. Nan Jeffers CBC AUTO DIFFon 05-18-2022 BASO # 0.0 103/ul Normal 0.0-0.1 [facility] Comment on above: Performed By: #### C BC #### [facility] [address] [place] [address] Dr. Nan Jeffers Basophils/100 WBC (Bld) 0.3 % Normal 0.2-2.0 [facility] Comment on above: Performed By: #### C BC #### [facility] [address] [place] [address] Dr. Nan Jeffers EO # 0.0 103/ul Normal 0.0-0.7 [facility] Comment on above: Performed By: #### C BC #### [facility] [address] [place] [address] Dr. Nan Jeffers Eosinophils/100 WBC (Bld) 0.0 % Critically low 0.9-7.0 [facility] Comment on above: Performed By: #### C BC #### [facility] [address] [place] [address] Dr. Nan Jeffers Erythrocyte distribution width (RBC) [Ratio] 12.4 % Normal 11.0-15.0 [facility] Comment on above: Performed By: #### C BC #### [facility] [address] [place] [address] Dr. Nan Jeffers Hematocrit (Bld) [Volume fraction] 34.8 % Critically low 36.0-48.0 [facility] Comment on above: Performed By: #### C BC #### [facility] [address] [place] [address] Dr. Nan Jeffers Hemoglobin (Bld) [Mass/Vol] 11.3 g/dL Critically low 12.0-16.0 [facility] Comment on above: Performed By: #### C BC #### [facility] [address] [place] [address] Dr. Nan Jeffers IG # 0.08 10e3/ul Critically high 0.00-0.03 [facility] Comment on above: Performed By: #### C BC #### [facility] [address] [place] [address] Dr. Nan Jeffers IG % 1.1 % Critically high 0.0-0.5 [facility] Comment on above: Performed By: #### C BC #### [facility] [address] [place] [address] Dr. Nan Jeffers LYMPH # 1.5 103/ul Normal 1.2-3.8 [facility] Comment on above: Performed By: #### C BC #### [facility] [address] [place] [address] Dr. Nan Jeffers Lymphocytes/100 WBC (Bld) 19.9 % Critically low 20.5-60.0 [facility] Comment on above: Performed By: #### C BC #### [facility] [address] [place] [address] Dr. Nan Jeffers MANUAL DIFF REQ NO Normal [facility] Comment on above: Performed By: #### C BC #### [facility] [address] [place] [address] Dr. Nan Jeffers MCH (RBC) [Entitic mass] 28.2 pg Normal 26.7-34.0 [facility] Comment on above: Performed By: #### C BC #### [facility] [address] [place] [address] Dr. Nan Jeffers MCHC (RBC) [Mass/Vol] 32.5 g/dL Normal 29.9-35.2 [facility] Comment on above: Performed By: #### C BC #### [facility] [address] [place] [address] Dr. Nan Jeffers MCV (RBC) [Entitic vol] 86.8 fL Normal 81.0-99.0 [facility] Comment on above: Performed By: #### C BC #### [facility] [address] [place] [address] Dr. Nan Jeffers MONO # 0.2 103/ul Critically low 0.3-0.8 [facility] Comment on above: Performed By: #### C BC #### [facility] [address] [place] [address] Dr. Nan Jeffers Monocytes/100 WBC (Bld) 3.2 % Normal 1.7-12.0 [facility] Comment on above: Performed By: #### C BC #### [facility] [address] [place] [address] Dr. Nan Jeffers NEUT # 5.6 103/ul Normal 1.4-6.5 [facility] Comment on above: Performed By: #### C BC #### [facility] [address] [place] [address] Dr. Nan Jeffers Neutrophils/100 WBC (Bld) 75.5 % Critically high 43.0-75.0 [facility] Comment on above: Performed By: #### C BC #### [facility] [address] [place], [place] [address] Dr. Nan Jeffers Platelet mean volume (Bld) [Entitic vol] 9.7 fL Normal 9.5-13.5 [facility] Comment on above: Performed By: #### C BC #### [facility] [address] [place] [id number] Nan Jeffers PLT 224 103/ul Normal 150-450 [facility] Comment on above: Performed By: #### C BC #### [facility] [id number] Nan Jeffers RBC 4.01 106/ul Critically low 4.20-5.40 [facility] Comment on above: Performed By: #### C BC #### [facility] [id number] Nan Jeffers WBC 7.4 103/ul Normal 4.0-11.0 [facility] Comment on above: Performed By: #### C BC #### [facility] [address] [place], [place] [address] CHEST WO CONon [...] Hepatic steatosis. Cholecystectomy. Electronically authenticated by: REBEKAH ARMENDARIZ Date: 2022-05-18 11:21 Normal [facility] POINT OF CARE GLUCOSEon Glucose [Mass/Vol] 206 mg/dL Critically high -106 [facility] Comment on above: Performed By: #### P OCGLUC #### [facility] [address] [place] [address] Dr. Nan Jeffers Glucose [Mass/Vol] 262 mg/dL Critically high [facility]106 [facility] Comment on above: Performed By: #### P OCGLUC #### [facility] [address] [place] [address] [address] Nan Jeffers Glucose [Mass/Vol] 383 mg/dL Critically high -106 [facility] Comment on above: Performed By: #### P OCGLUC #### [facility] [address] [place] [address] [address] Nan Jeffres PROF 14(COMP METB)on 023 Albumin [Mass/Vol] 3.4 g/dL Normal 3.4-5.0 [facility] Comment on above: Performed By: #### C MP #### [facility] [address] [place] [address] Dr. Nan Jeffers Albumin/Globulin [Mass ratio] 1.2 {ratio} Normal [facility] Comment on above: Performed By: #### C MP #### [facility] [address] [place] [address] Dr. Nan Jeffers ALP [Catalytic activity/Vol] 66 U/L Normal 46-116 [facility] Comment on above: Performed By: #### C MP #### [facility] [address] [place] [address] [address] Nan Jeffers ALT [Catalytic activity/Vol] 34 U/L Normal 14-59 [facility] Comment on above: Performed By: #### C MP #### [facility] [address] [place] [address] [address] Nan Jeffers Anion gap [Moles/Vol] 17.8 mmol/L Normal [facility] Comment on above: Performed By: #### C MP #### [facility] [address] [place] [address] [address] Nan Jeffers AST [Catalytic activity/Vol] 19 U/L Normal 15-37 [facility] Comment on above: Performed By: #### C MP #### [facility] [address] [place] [address] [address] Nan Jeffers Bilirubin [Mass/Vol] 0.2 mg/dL Normal 0.2-1.0 [facility] Comment on above: Performed By: #### C MP #### [facility] [address] [place] [address] [address] Nan Jeffers Calcium [Mass/Vol] 8.9 mg/dL Normal 8.5-10.1 [facility] Comment on above: Performed By: #### C MP #### [facility] [address] [place] [address] [address] Nan Jeffers Chloride [Moles/Vol] 101 mmol/L Normal 98-107 [facility] Comment on above: Performed By: #### C MP #### [facility] [address] [place] [address] [address] Nan Jeffers CO2 [Moles/Vol] 22.1 mmol/L Normal 21.0-32.0 [facility] Comment on above: Performed By: #### C MP #### [facility] [address] [place] [address] [address] Nan Jeffers Creatinine [Mass/Vol] 1.26 mg/dL Critically high 0.55-1.02 [facility] Comment on above: Performed By: #### C MP #### [facility] [address] [place] [address] [address] Nan Jeffers EGFR-AF SLOVENIAN 52 mL/min/1.73m2 Critically low >=60 [facility] Comment on above: Performed By: #### C MP #### [facility] [address] [address] [address] Nan Jeffers EGFR-NON AF SLOVENIAN 43 mL/min/1.73m2 Critically low >=60 [facility] Comment on above: Performed By: #### C MP #### [facility] [address] [address] [address] Nan Jeffers Globulin (S) [Mass/Vol] 2.9 g/dL Normal [facility] Comment on above: Performed By: #### C MP #### [facility] [address] [place] [address] [address] Nan Jeffers Glucose [Mass/Vol] 385 mg/dL Critically high 74-106 [facility] Comment on above: Performed By: #### C MP #### [facility] [address] [place] [address] [address] Nan Jeffers Potassium [Moles/Vol] 3.9 mmol/L Normal 3.5-5.1 [facility] Comment on above: Performed By: #### C MP #### [facility] [address] [place] [address] [address] Nan Jeffers Protein [Mass/Vol] 6.3 g/dL Critically low 6.4-8.2 [facility] Comment on above: Performed By: #### C MP #### [facility] [address] [place] [address] [address] Nan Jeffers Sodium [Moles/Vol] 137 mmol/L Normal 136-145 [facility] Comment on above: Performed By: #### C MP #### [facility] [address] [place] [address] [address] Nan Jeffers Urea nitrogen [Mass/Vol] 14.0 mg/dL Normal 7.0-18.0 [facility] Comment on above: Performed By: #### C MP #### [facility] [address] [place] [address] Dr. Nan Jeffers Urea nitrogen/Creatinin e [Mass ratio] 11.1 mg/mg Normal [facility] Comment on above: Performed By: #### C MP #### [facility] [address] [place] [address] Dr. Nan Jeffers BNPon 05-17-2022 Natriuretic peptide B (Bld) [Mass/Vol] 58.0 pg/mL Normal <=900.0 [facility] Comment on above: Performed By: #### P OCGLUC #### [facility] [address] [place] [address] Dr. Nan Jeffers CARDIAC CHIN ADMITon 023 CK [Catalytic activity/Vol] 244 U/L Critically high 26-192 [facility] Comment on above: Performed By: #### P OCGLUC #### [facility] [address] [place] [address] Dr. Nan Jeffers CK.MB [Mass/Vol] 0.96 ng/mL Normal <=3.60 [facility] Comment on above: Performed By: #### P OCGLUC #### [facility] [address] [place] [address] Dr. Nan Jeffers HSTROP 4.1 pg/mL Normal 4.0-51.3 [facility] Comment on above: Result Comment: CUT- OFF POINTS HAVE BEEN ESTABLISHED BASED ON THE FOURTH UNIVERSAL DEFINITIONS OF MYOCARDIAL INFARCTION. THE UPPER REFERENCE LIMIT (URL) OF TROPONIN, DEFINED THE 99TH PERCENTILE OF cTnI DISTRIBUTION IN A REFERENCE POPULATION, HAS BEEN CONFIRMED THE DECISION THRESHOLD FOR [place] DIAGNOSIS. Performed By: #### P OCGLUC #### [facility] [address] [place] [address] Dr. Nan Jeffers LACIE 137 ng/mL Critically high 9-82 [facility] Comment on above: Performed By: #### P OCGLUC #### [facility] [address] [place] [address] Dr. Nan Jeffers CULTURE URINEon 05-17-2022 CULTURE URINE Culture Observations : NO GROWTH. Normal [facility] Comment on above: Performed By: #### P OCGLUC #### [facility] [address] [place] [address] Dr. Nan Jeffers Covid-19 PCR ([facility])on SARS-CoV-2 (COVID-19) RNA JACQUES+probe Ql (Unsp spec) Not detected Normal NOT DETECTED [facility] Comment on above: Result Comment: When [...] for this test is supported by the [place] of [employer] and Human Service's declaration that [...] used). Performed By: #### P OCGLUC #### [facility] [address] [place] [address] [id number] [address] Nan Jeffers D-DIMERon 05-17-2022 D-DIMER 0.60 mg/L FEU Critically high <=0.59 [facility] Comment on above: Performed By: #### D DIM #### [facility] [address] [place] [address] [id number] [address] Nan Jeffers D-DIMER COMMENTS SEE BELOW Normal [facility] Comment on above: Result Comment: Incr [...] hospitalization. Performed By: #### D DIM #### [facility] [address] [place] [address] Dr. Nan Jeffers LACTATE/LACTIC ACIDon 2022 Lactate [Moles/Vol] 1.7 mmol/L Normal 0.4-1.9 [facility] Comment on above: Performed By: #### P OCGLUC #### [facility] [address] [place] [address] Dr. Nan Jeffers LIPASEon 05-17-2022 Lipase [Catalytic activity/Vol] 82.0 U/L Normal 73.0-393.0 [facility] Comment on above: Performed By: #### P OCGLUC #### [facility] [address] [place] [address] Dr. Nan Jeffers POINT OF CARE GLUCOSEon Glucose [Mass/Vol] 337 mg/dL Critically high 74-106 [facility] Comment on above: Performed By: #### P OCGLUC #### [facility] [address] [place] [address] Dr. Nan Jeffers Glucose [Mass/Vol] 281 mg/dL Critically high -106 [facility] Comment on above: Performed By: #### P OCGLUC #### [facility] [address] [place] [address] Dr. Nan Jeffers PROF 14(COMP METB)on 023 Albumin [Mass/Vol] 3.4 g/dL Normal 3.4-5.0 [facility] Comment on above: Performed By: #### P OCGLUC #### [facility] [address] [place] [address] Dr. Nan Jeffers Albumin/Globulin [Mass ratio] 1.1 {ratio} Normal [facility] Comment on above: Performed By: #### P OCGLUC #### [facility] [address] [place] [address] Dr. Nan Jeffers ALP [Catalytic activity/Vol] 64 U/L Normal 46-116 [facility] Comment on above: Performed By: #### P OCGLUC #### [facility] [address] [place] [address] [address] Nan Jeffers ALT [Catalytic activity/Vol] 40 U/L Normal 14-59 [facility] Comment on above: Performed By: #### P OCGLUC #### [facility] [address] [address] [address] Nan Jeffers Anion gap [Moles/Vol] 10.1 mmol/L Normal [facility] Comment on above: Performed By: #### P OCGLUC #### [facility] [address] [address] [address] Nan Jeffers AST [Catalytic activity/Vol] 20 U/L Normal 15-37 [facility] Comment on above: Performed By: #### P OCGLUC #### [facility] [address] [address] [address] Nan Jeffers Bilirubin [Mass/Vol] 0.4 mg/dL Normal 0.2-1.0 [facility] Comment on above: Performed By: #### P OCGLUC #### [facility] [address] [address] [address] Nan Jeffers Calcium [Mass/Vol] 9.2 mg/dL Normal 8.5-10.1 [facility] Comment on above: Performed By: #### P OCGLUC #### [facility] [address] [address] [address] Nan Jeffers Chloride [Moles/Vol] 104 mmol/L Normal 98-107 [facility] Comment on above: Performed By: #### P OCGLUC #### [facility] [address] [address] [address] Nan Jeffers CO2 [Moles/Vol] 31.8 mmol/L Normal 21.0-32.0 [facility] Comment on above: Performed By: #### P OCGLUC #### [facility] [address] [address] [address] Nan Jeffers Creatinine [Mass/Vol] 0.96 mg/dL Normal 0.55-1.02 [facility] Comment on above: Performed By: #### P OCGLUC #### [facility] [address] [address] [address] Nan Jeffers EGFR-AF SLOVENIAN >60 Normal >=60 [facility] Comment on above: Performed By: #### P OCGLUC #### [facility] [address] [address] [address] Nan Jeffers EGFR-NON AF SLOVENIAN 59 mL/min/1.73m2 Critically low >=60 [facility] Comment on above: Performed By: #### P OCGLUC #### [facility] [address] [address] [address] Nan Jeffers Globulin (S) [Mass/Vol] 3.1 g/dL Normal [facility] Comment on above: Performed By: #### P OCGLUC #### [facility] [address] [address] [address] Nan Jeffers Glucose [Mass/Vol] 189 mg/dL Critically high 74-106 [facility] Comment on above: Performed By: #### P OCGLUC #### [facility] [address] [address] [address] Nan Jeffers Potassium [Moles/Vol] 4.9 mmol/L Normal 3.5-5.1 [facility] Comment on above: Performed By: #### P OCGLUC #### [facility] [address] [address] [address] Nan Jeffers Protein [Mass/Vol] 6.5 g/dL Normal 6.4-8.2 [facility] Comment on above: Performed By: #### P OCGLUC #### [facility] [address] [address] [address] Nan Jeffers Sodium [Moles/Vol] 141 mmol/L Normal 136-145 [facility] Comment on above: Performed By: #### P OCGLUC #### [facility] [address] [address] [address] Nan Jeffers Urea nitrogen [Mass/Vol] 12.0 mg/dL Normal 7.0-18.0 [facility] Comment on above: Performed By: #### P OCGLUC #### [facility] [address] [address] [address] Nan Jeffers Urea nitrogen/Creatinin e [Mass ratio] 12.5 mg/mg Normal [facility] Comment on above: Performed By: #### P OCGLUC #### [facility] [address] [address] [address] Nan Jeffers UA RANDOM W/MICROSCOPICon BACTERIA NONE SEEN Normal NONE SEEN [facility] Comment on above: Performed By: #### P OCGLUC #### [facility] [address] [address] [address] Nan Jeffers Bilirubin Ql (U) Negative Normal NEGATIVE [facility] Comment on above: Performed By: #### P OCGLUC #### [facility] [address] [place] [address] Dr. Nan Jeffers CAST NONE SEEN Normal NONE SEEN [facility] Comment on above: Performed By: #### P OCGLUC #### [facility] [address] [address] [address] Nan Jeffers Clarity (U) CLEAR Normal CLEAR [facility] Comment on above: Performed By: #### P OCGLUC #### [facility] [address] [address] [address] Nan Jeffers Color (U) LT. YELLOW Normal YELLOW [facility] Comment on above: Performed By: #### P OCGLUC #### [facility] [address] [address] [address] Nan Jeffers Crystals LM Nom (Urine sed) NONE SEEN Normal NONE SEEN [facility] Comment on above: Performed By: #### P OCGLUC #### [facility] [address] [address] [address] Nan Jeffers Epithelial cells LM Ql (Urine sed) RARE Normal NONE SEEN /RARE [facility] Comment on above: Performed By: #### P OCGLUC #### [facility] [address] [address] [address] Nan Jeffers Glucose Ql (U) 500 mg/dl Abnormal NEGATIVE [facility] Comment on above: Performed By: #### P OCGLUC #### [facility] [address] [place] [address] Dr. Nan Jeffers Hemoglobin Ql (U) Negative Normal NEGATIVE [facility] Comment on above: Performed By: #### P OCGLUC #### [facility] [address] [place] [address] Dr. Nan Jeffers Ketones Ql (U) Negative Normal NEGATIVE [facility] Comment on above: Performed By: #### P OCGLUC #### [facility] [address] [address] [address] Nan Jeffers LEUKOCYTES Negative Normal NEGATIVE [facility] Comment on above: Performed By: #### P OCGLUC #### [facility] [address] [place] [address] Dr. Nan Jeffers MUCOUS NONE SEEN Normal NONE SEEN [facility] Comment on above: Performed By: #### P OCGLUC #### [facility] [address] [place] [address] Dr. Nan Jeffers Nitrite Ql (U) Negative Normal NEGATIVE [facility] Comment on above: Performed By: #### P OCGLUC #### [facility] [address] [place] [address] Dr. Nan Jeffers pH (U) 5.5 [pH] Normal 5-9 [facility] Comment on above: Performed By: #### P OCGLUC #### [facility] [address] [place] [address] Dr. Nan Jeffers RBC 0-2 Normal 0-2 [facility] Comment on above: Performed By: #### P OCGLUC #### [facility] [address] [place] [address] Dr. Nan Jeffers SPEC GRAVITY <=1.005 Abnormal 1.005-<=1.025 [facility] Comment on above: Performed By: #### P OCGLUC #### [facility] [address] [place] [address] Dr. Nan Jeffers UA PROTEIN Negative Normal NEGATIVE/ TRACE [facility] Comment on above: Performed By: #### P OCGLUC #### [facility] [address] [place] [address] Dr. Nan Jeffers Urobilinogen Qn (U) 0.2 {Jenifer'U}/dL Normal 0.2 - 1.0 [facility] Comment on above: Performed By: #### P OCGLUC #### [facility] [address] [address] [address] Nan Jeffers WBC NONE SEEN Normal NONE SEEN [facility] Comment on above: Performed By: #### P OCGLUC #### [facility] [address] [address] [address] Nan Jeffers XR ABD FLAT UP_PA [...] VIRAJ [place] Date: 2022-05-17 14:45 Normal [facility] Covid-19 PCR ([facility])on 04-20 SARS-CoV-2 (COVID-19) RNA JACQUES+probe Ql (Unsp spec) Not detected Normal NOT DETECTED [facility] Comment on above: Result Comment: When [...] for this test is supported by the [place] of [employer] and Human Service's declaration that [...] used). Performed By: #### C VDTB #### [facility] [address] [place] [address] Dr. Nan Jeffers MG MAMM DX 3D RT CADon 03-03 MG MAMM DX 3D RT CAD Patient: JOSIE VELIZ I. Exam Date: 03/03/2022 : 1960 Gender:F Ordering : DR MARIA R GARCIA . Admission #: [id number] Family : Order #: [id number] CLICK HERE TO VIEW EXAM RADIOLOGY REPORT [...] bladder cancer at age 71. LOCATION: [facility] BREAST COMPOSITION: Scattered areas fibroglandular density. FINDINGS: [...] PALPABLE LUMP SHOULD BE BIOPSIED. Dictated by: Gregoria Moreira M.D. on 03/03/2022 at 13:55 Approved by: Gregoria Moreira M.D. on 03/03/2022 at 14:03 Normal [facility] US BREAST RIGHT LIMITEDon US BREAST RIGHT LIMITED Patient: JOSIE VELIZ I. Exam Date: 03/03/2022 : 1960 Gender:F Ordering : DR MARIA R GARCIA . Admission #: [id number] Family : Order #: [id number] CLICK HERE TO VIEW EXAM RADIOLOGY REPORT [...] bladder cancer at age 71. LOCATION: [facility] BREAST COMPOSITION: Scattered areas fibroglandular density. FINDINGS: [...] PALPABLE LUMP SHOULD BE BIOPSIED. Dictated by: Gregoria Moreira M.D. on 03/03/2022 at 13:55 Approved by: Gregoria Moreira M.D. on 03/03/2022 at 14:03 Normal [facility] US VAC ASST BX BREAST RT W C Christy 08-05-2021 US VAC ASST BX BREAST RT W CLIP Begin Addendum #1 COLLECTED DATE/TIME: 07/29/2021 09:52 EDT Final Diagnosis Report for [place] RIGHT BREAST 3 O'CLOCK MASS; BIOPSY: -BENIGN BREAST PARENCHYMA WITH FIBROCYSTIC CHANGES, DENSE STROMA AND COLUMNAR CELL CHANGE. -NEGATIVE FOR MALIGNANCY. 08/04/[address] [email or web address]. Verified with Nhung that report was present [...] biopsy 2. Pathology results are pending. Normal [facility] MAMMO POST BIOPSY RIGHTon MAMMO POST BIOPSY RIGHT Patient: JOSIE VELIZ I. Exam Date: 07/29/2021 : 1960 Gender:F Ordering : DR MARIA R GARCIA . Admission #: [id number] Family : Order #: [id number] CLICK HERE TO VIEW EXAM RADIOLOGY REPORT [...] Bunch MD on 07/29/2021 at 10:17 Normal [facility] MAMM DIAGNOSTIC 3D TIGRE CA Don 07-22-2021 MG MAMM DIAGNOSTIC 3D TIGRE CAD Patient: JOSIE VELIZ I. Exam Date: 07/22/2021 : 1960 Gender:F Ordering : DR MARIA R GARCIA . Admission #: [id number] Family : Order #: [id number] CLICK HERE TO VIEW EXAM RADIOLOGY REPORT [...] bladder cancer at age 71. LOCATION: [facility] BREAST COMPOSITION: Scattered areas fibroglandular density. FINDINGS: [...] MD on 07/22/2021 at 13:49 Normal [facility] US BREAST RIGHT LIMITEDon US BREAST RIGHT LIMITED Patient: JOSIE VELIZ I. Exam Date: 07/22/2021 : 1960 Gender:F Ordering : DR MARIA R GARCIA . Admission #: [id number] Family : Order #: [id number] CLICK HERE TO VIEW EXAM RADIOLOGY REPORT [...] bladder cancer at age 71. LOCATION: [facility] BREAST COMPOSITION: Scattered areas fibroglandular density. FINDINGS: [...] Bunch MD on 07/22/2021 at 13:49 Normal [facility] Vital Signs Date Time Vital Sign Value Performing Clinician Facility 06-19-2024 13:43-0400 Body height 163.8 cm Maria R Garcia MD Work Phone: [facility] 06-19-2024 13:43-0400 Body mass index (BMI) [Ratio] 33.3 kg/m2 Maria R Garcia MD Work Phone: [facility] 06-19-2024 13:43-0400 Body weight 89.35 kg Maria R Garcia MD Work Phone: [facility] 06-19-2024 13:43-0400 Diastolic blood pressure 74 mm[Hg] Maria R Garcia MD Work Phone: [facility] 06-19-2024 13:43-0400 Heart rate 83 /min Maria R Garcia MD Work Phone: [facility] 06-19-2024 13:43-0400 Respiratory rate 18 /min Maria R Garcia MD Work Phone: [facility] 06-19-2024 13:43-0400 SaO2% (BldA) [Mass fraction] 95 % Maria R Garcia MD Work Phone: [facility] 06-19-2024 13:43-0400 Systolic blood pressure 114 mm[Hg] Maria R Garcia MD Work Phone: [facility] 06-10-2024 14:28-0400 Body height 168 cm Maria R Garcia MD Work Phone: [facility] 06-10-2024 14:28-0400 Body mass index (BMI) [Ratio] 31.1 kg/m2 Maria R Garcia MD Work Phone: [facility] 06-10-2024 14:28-0400 Body temperature 97.3 [degF] Maria R Garcia MD Work Phone: [facility] 06-10-2024 14:28-0400 Body weight 88.08 kg Maria R Garcia MD Work Phone: [facility] 06-10-2024 14:28-0400 Diastolic blood pressure 54 mm[Hg] Maria R Garcia MD Work Phone: [facility] 06-10-2024 14:28-0400 Heart rate 60 /min Maria R Garcia MD Work Phone: [facility] 06-10-2024 14:28-0400 Respiratory rate 16 /min Maria R Garcia MD Work Phone: [facility] 06-10-2024 14:28-0400 SaO2% (BldA) [Mass fraction] 97 % Maria R Garcia MD Work Phone: [facility] 06-10-2024 14:28-0400 Systolic blood pressure 134 mm[Hg] Maria R Garcia MD Work Phone: [facility] 05-30-2024 14:50-0400 Body height 170.18 cm Maria R Garcia MD Work Phone: [facility] 05-30-2024 14:50-0400 Body mass index (BMI) [Ratio] 29.7 kg/m2 Maria R Garcia MD Work Phone: [facility] 05-30-2024 14:50-0400 Body temperature 97.8 [degF] Maria R Garcia MD Work Phone: [facility] 05-30-2024 14:50-0400 Body weight 86.18 kg Maria R Garcia MD Work Phone: [facility] 05-30-2024 14:50-0400 Diastolic blood pressure 77 mm[Hg] Maria R Garcia MD Work Phone: [facility] 05-30-2024 14:50-0400 Heart rate 89 /min Maria R Garcia MD Work Phone: [facility] 05-30-2024 14:50-0400 Respiratory rate 18 /min Maria R Garcia MD Work Phone: [facility] 05-30-2024 14:50-0400 SaO2% (BldA) [Mass fraction] 96 % Maria R Garcia MD Work Phone: [facility] 05-30-2024 14:50-0400 Systolic blood pressure 145 mm[Hg] Maria R Garcia MD Work Phone: [facility] 03-21-2024 14:51-0500 Body temperature 98.01 [degF] Dallin Gonzalez MD Work Phone: [facility] 03-21-2024 14:51-0500 Body weight 89.31 kg Dallin Gonzalez MD Work Phone: [facility] 03-21-2024 14:51-0500 Diastolic blood pressure 45 mm[Hg] Dallin Gonzalez MD Work Phone: [facility] 03-21-2024 14:51-0500 Heart rate 82 /min Dallin Gonzalez MD Work Phone: [facility] 03-21-2024 14:51-0500 SaO2% (BldA) [Mass fraction] 96 % Dallin Gonzalez MD Work Phone: [facility] 03-21-2024 14:51-0500 Systolic blood pressure 117 mm[Hg] Dallin Gonzalez MD Work Phone: [facility] 03-21-2024 09:47-0500 Body height 170.2 cm Kelly Askew MD Work Phone: [facility] 03-21-2024 09:47-0500 Body mass index (BMI) [Ratio] 30.7 kg/m2 Kelly Askew MD Work Phone: [facility] 03-21-2024 09:47-0500 Body weight 88.91 kg Kelly Askew MD Work Phone: [facility] 03-21-2024 09:47-0500 Diastolic blood pressure 80 mm[Hg] Kelly Askew MD Work Phone: [facility] 03-21-2024 09:47-0500 Systolic blood pressure 132 mm[Hg] Kelly Askew MD Work Phone: [facility] 06-22-2022 14:47-0400 Body height 170.2 cm Hector Joseph PA-C Work Phone: [facility] 06-22-2022 14:47-0400 Body mass index (BMI) [Ratio] 31.32 kg/m2 Hector Joseph PA-C Work Phone: [facility] 06-22-2022 14:47-0400 Body temperature 97 [degF] Hector Joseph PA-C Work Phone: [facility] 06-22-2022 14:47-0400 Body weight 90.72 kg Hector Joseph PA-C Work Phone: [facility] 06-08-2022 13:20-0400 Diastolic blood pressure 56 mm[Hg] Melodie Wilde MD Work Phone: [facility] 06-08-2022 13:20-0400 Heart rate 83 /min Melodie Wilde MD Work Phone: [facility] 06-08-2022 13:20-0400 Respiratory rate 18 /min Melodie Wilde MD Work Phone: [facility] 06-08-2022 13:20-0400 SaO2% (BldA) [Mass fraction] 95 % Melodie Wilde MD Work Phone: [facility] 06-08-2022 13:20-0400 Systolic blood pressure 116 mm[Hg] Melodie Wilde MD Work Phone: [facility] 06-08-2022 13:05-0400 Body temperature 97.3 [degF] Melodie Wilde MD Work Phone: [facility] 06-08-2022 11:12-0400 Body height 170.2 cm Melodie Wilde MD Work Phone: [facility] 06-08-2022 11:12-0400 Body mass index (BMI) [Ratio] 31.32 kg/m2 Melodie Wilde MD Work Phone: [facility] 06-08-2022 11:12-0400 Body weight 90.72 kg Melodie Wilde MD Work Phone: [facility] 05-30-2022 08:14-0400 Body height 170.2 cm Melodie Wilde MD Work Phone: [facility] 05-30-2022 08:14-0400 Body mass index (BMI) [Ratio] 31.32 kg/m2 Melodie Wilde MD Work Phone: [facility] 05-30-2022 08:14-0400 Body temperature 97.9 [degF] Melodie Wilde MD Work Phone: [facility] 05-30-2022 08:14-0400 Body weight 90.72 kg Melodie Wilde MD Work Phone: [facility] Encounters Encounter Date Encounter Type Care Provider Facility Start: 06-19-2024 End: 06-19-2024 ambulatory Maria R Garcia MD Work Phone: [facility] Work Phone: Start: 06-19-2024 End: 06-19-2024 Patient encounter procedure Maria R Garcia MD Work Phone: [facility] Work Phone: Start: 06-19-2024 Registered Recurring Maria R mattson MD Work Phone: [facility] Work Phone: Start: 06-19-2024 ambulatory Jack power II Facility:[facility] Start: 06-10-2024 End: 06-10-2024 ambulatory Maria R Garcia MD Work Phone: [facility] Work Phone: Start: 06-10-2024 End: 06-10-2024 Patient encounter procedure Maria R Garcia MD Work Phone: [facility] Work Phone: Start: 05-30-2024 Registered Recurring Maria R mattson MD Work Phone: [facility] Work Phone: Start: 05-30-2024 End: 05-30-2024 ambulatory Maria R Garcia MD Work Phone: [facility] Work Phone: Start: 05-30-2024 End: 05-30-2024 Patient encounter procedure Maria R Garcia MD Work Phone: [facility] Work Phone: Start: 05-09-2024 ambulatory JACKPRAVEEN CALI Facility :[facility] Start: 05-02-2024 ambulatory JACK VIRAJ Facility :[facility] Start: 04-30-2024 End: 04-30-2024 ambulatory JACK VIRAJ Facility:[facility] Start: 04-24-2024 End: 04-24-2024 ambulatory DALLIN GONZALEZ Facility:[facility] Start: 04-22-2024 End: 04-22-2024 ambulatory DALLIN GONZALEZ Facility:[facility] Start: 04-10-2024 End: 04-10-2024 ambulatory JACK CALI Facility:[facility] Start: 04-09-2024 End: 04-10-2024 ambulatory DALLIN GONZALEZ Facility:[facility] Start: 04-08-2024 ambulatory JACK CALI Facility :[facility] Start: 04-08-2024 Encounter for other preprocedural examination JACK CALI [facility] Start: 03-26-2024 End: 03-26-2024 Telephone encounter Kelly Askew MD Work Phone: [facility] Start: 03-25-2024 End: 03-25-2024 Letter encounter Dallin Gonzalez MD Work Phone: [facility] Otolaryngology (ENT) Start: 03-24-2024 End: 03-24-2024 Telephone encounter Kelly Askew MD Work Phone: [facility] Start: 03-22-2024 End: 03-22-2024 Clinisync Result Encounter Kelly Askew MD Work Phone: [facility] Unsolicited Start: 03-22-2024 End: 03-22-2024 Clinisync Result Encounter Kelly Askew MD Work Phone: [facility] Unsolicited Start: 03-21-2024 End: 03-21-2024 Office outpatient new 30 minutes Dallin Gonzalez MD Work Phone: [facility] (ENT) Comment on above: Submandibular gland mass (Primary Dx) Start: 03-21-2024 End: 03-21-2024 ambulatory JACK CALI Facility:[facility] Start: 03-21-2024 End: 03-21-2024 Bamboo flowsheet Kelly Askew MD Work Phone: [facility] Start: 03-21-2024 End: 03-21-2024 Bamboo flowsheet Kelly Askew MD Work Phone: [facility] Start: 03-21-2024 End: 03-21-2024 Office outpatient new 45 minutes Kelly Askew MD Work Phone: [facility] Comment on above: Neck mass (Primary D x) Start: 03-21-2024 End: 03-21-2024 ambulatory KELLY ASKEW Not Available Start: 03-05-2024 End: 03-05-2024 ambulatory Maria R Garcia Facility:[facility] Start: 03-05-2024 End: 03-05-2024 Departed Referred Maria R Garcia MD Work Phone: [facility] Start: 06-22-2022 ambulatory [facility] Start: 06-22-2022 End: 06-22-2022 Postop follow up visit related to original px Hector Katz Colo PA-C Work Phone: [facility] Comment on above: H/O excision of mass - Rt thumb IP jt mucous cyst (Primary Dx) Start: 06-08-2022 End: 06-08-2022 ambulatory [facility] Start: 06-08-2022 End: 06-08-2022 Subsequent hospital visit by physician Melodie Wilde MD Work Phone: [facility] Comment on above: Mass of finger of ri ght hand Start: 05-31-2022 ambulatory MARIA R M [facility] Start: 05-30-2022 ambulatory [facility] Start: 05-30-2022 End: 05-30-2022 Subsequent hospital visit by physician Melodie Wilde MD Work Phone: [facility] Comment on above: Arrived Start: 05-30-2022 End: 05-30-2022 Office outpatient new 45 minutes Melodie Wilde MD Work Phone: [facility] Comment on above: Mass of finger, righ t (Primary Dx) Start: 05-17-2022 End: 05-19-[address] MARIA R GARCIA . Facility:[facility] Start: 05-16-2022 End: 05-16-[address] MARIA R GARCIA . Facility:[facility] Start: 03-20-[address] MARIA R GARCIA . Facili ty:[facility] Start: 03-03-2022 End: 03-04-[address] MARIA R GARCIA . Facility: Start: 07-29-2021 End: 07-29-[address] MARIA R GARCIA . Facility:[facility] Start: 07-22-2021 End: 07-23-[address] MARIA R GARCIA . Facility: Procedures Date Procedure Procedure Detail Performing Clinician Start: 05-28-2024 Positron emission tomography with computed tomography Maria R Garcia MD Work Phone: Start: 03-22-2024 ALL SED RATE Kelly gould MD Work Phone: H/O: surgery H/O excision of mass- Rt thumb IP jt mucous cyst Hector Joseph PA-C Work Phone: Plan of Treatment Date Care Activity Detail Author Start: 01-25-2029 Lipid panel [facility] Start: 05-30-2024 Patient referral [facility] Work Phone: Start: 04-30-2024 End: 04-30-2024 Patient encounter procedure 04/30/2024 9:45 AM EST Office Visit [facility] ([facility]) [address] [place] [id number] Dallin Gonzalez MD [address] [place] [id number] [facility] (ENT) Start: 04-22-2024 End: 04-22-2024 Admission to same day surgery center 04/22/2024 8:35 AM EST - 04/22/2024 11:04 AM EST Surgery [facility] OR [address] [place] [address] Dallin Gonzalez MD [address] [place] [id number] EXCISION, GLAND, SUBMANDIBULAR [facility] OR Comment on above: EXCISION, GLAND, SUB MANDIBULAR Start: 04-22-2024 End: 04-22-2024 EXCISION, GLAND, SUBMANDIBULAR EXCISION, GLAND, SUBMANDIBULAR Routine scheduled Submandibular gland mass 04/22/2024 8:35 AM EST [facility] Start: 04-22-2024 Subsequent hospital visit by physician 04/22/2024 8:35 AM EST Hospital Encounter [facility] Main OR [address] [id number] Dallin Gonzalez MD [address] [place] [address] [facility] Main OR Start: 04-08-2024 End: 04-08-2024 Nursing evaluation of patient and report 04/08/2024 8:30 AM EST Nurse Visit [facility] Pre-Admission Testing [address] [place] [address] Constance Arellano, HIREN [address] [place] [address] Pre-Admission Testing Start: 04-01-2024 End: 04-01-2024 Patient encounter procedure 04/01/2024 9:20 AM EST Office Visit [facility] [address] [facility] [address] [place] [address] Kelly Askew MD [address] [facility] [address] [place] [address] [facility] Start: 03-21-2024 End: 03-21-2024 Patient encounter procedure 03/21/2024 10:00 AM EST Office Visit [facility] [address] [place] [address] Kelly Askew MD [address] [facility] [address] [place] [address] Arrived [facility] Comment on above: Arrived Start: 11-18-2023 COVID-19 Vaccine ( season) COVID-19 Vaccine ( season) [facility] Start: 11-18-2023 Influenza vaccination Influenza Vacc ine (#1) [facility] Start: 06-22-2022 End: 06-22-2022 Patient encounter procedure 06/22/2022 Office Visit Orthopaedics Hector Joseph PA-C [address] [place] [address] [facility] Start: 06-08-2022 End: 06-08-2022 Admission to same day surgery center 06/08/2022 Surgery Multispecialty Melodie Wilde MD [address] [place] [address] EXCISION SOFT TISSUE FINGER HAND *WALANT* rt [facility] Comment on above: EXCISION SOFT TISSUE FINGER HAND *WALANT* rt Start: 06-08-2022 Subsequent hospital visit by physician 06/08/2022 Hospital Encounter Multispecialty Melodie Wilde MD [address] [place] [address] Mass of finger of right hand [facility] Comment on above: Mass of finger of ri ght hand Start: 06-08-2022 End: 06-08-2022 Exc maxwell/vasc mal sft tiss hand/fngr subq <1.5cm [facility] Start: 04-05-2021 COVID-19 VACCINE (4 - Booster for Pfizer series) COVID-19 VACCINE (4 - Booster for Pfizer series) [facility] Start: 2019 Hepatitis B (HBV) Vaccine (optional start 60+ years) Hepatitis B (HBV) Vaccine (optional start 60+ years) [facility] Start: 05-19-2009 Shingles (RZV) Vacci ne (1 of 2) Shingles (RZV) Vaccine (1 of 2) [facility] Start: 05-19-2009 Zoster vaccine hzv live for subcutaneous use ZOSTER (SHINGLES) VACCINE (1 of 2) [facility] Start: 05-19-2004 Screening for malignant neoplasm of colon [facility] Start: 1999 Lipid panel LIPID SCREENING [facility] Start: 1999 Screening for malignant neoplasm of breast [facility] Start: 05-19-1989 Screening for malignant neoplasm of cervix [facility] Start: 05-19-1980 Screening for malignant neoplasm of cervix [facility] Start: 05-19-1978 Hepatitis A (HAV) Vaccine (optional start 19+ years) Hepatitis A (HAV) Vaccine (optional start 19+ years) [facility] Start: 05-19-1978 Third diphtheria, tetanus and acellular pertussis (DTaP) vaccination TDAP (ADULT) [facility] Start: 05-19-1977 Hepatitis C screening Hepatitis C An tibody [facility] Start: 05-19-1977 Tdap Booster Tdap Booster [facility] Start: 05-19-1974 HIV screening [facility] Start: 1960 Hepatitis C screening HEPATITI S C VIRUS SCREENING [facility] Start: 1960 Screening for malignant neoplasm of colon [facility] Start: 1960 Tetanus vaccination TETANUS [facility] Nizv-7-Azttfhcmkhvye [Mass/volume] in Serum or Plasma [facility] Comprehensive metabolic 2000 panel - Serum or Plasma [facility] CT with contrast for radiotherapy planning [facility] EXCISION, GLAND, SUBMANDIBULAR EXCISION, GLAND, SUBMANDIBULAR Routine scheduled Submandibular gland mass [facility] Patient referral [facility] Work Phone: XR Thumb - right Views XR THUMB RIGHT Imaging Routine Mass of finger, right 05/30/2022 8:28 AM EDT [facility] Work Phone: [facility] Immunizations Immunization Date Immunization Notes Care Provider Fa [facility] 02-24-2023 influenza, injectabl e, quadrivalent, preservative free Dallin Gonzalez MD Work Phone: [facility] 02-24-2023 Respiratory syncytia l virus (RSV), vaccine, bivalent, protein subunit RSV prefusion F, diluent reconstituted, 0.5 mL, preservative free (TWI=021) Dallin Gonzalez MD Work Phone: [facility] 02-24-2023 influenza virus vacc ine, unspecified formulation Kelly Askew MD Work Phone: [facility] 01-31-2022 Influenza, injectabl e, Madin Warrior Canine Kidney, preservative free, quadrivalent Dallin Gonzalez MD Work Phone: [facility] 02-28-2021 Influenza, injectabl e, Madin Rachell Canine Kidney, preservative free, quadrivalent Dallin Gonzalez MD Work Phone: [facility] 03-05-2020 Influenza, injectabl e, Madin Rachell Canine Kidney, preservative free, quadrivalent Dallin Gonzalez MD Work Phone: [facility] 02-15-2017 influenza virus vacc ine, unspecified formulation Dallin Gonzalez MD Work Phone: [facility] 01-10-2016 influenza virus vacc ine, unspecified formulation Dallin Gonzalez MD Work Phone: [facility] 01-10-2016 pneumococcal polysaccharide vaccine, 23 valent Dallin Gonzalez MD Work Phone: [facility] Payers Date Payer Category Payer Private Health Insurance I [id number] 2024 Medicare [id number] 2024 Commercial Indemnity LITZY KENNY [id number] 2024 Self-pay 2023 Medicaid (Managed Care) LITZY BAIG [id number] 2023 Medicaid [id number] 2021 Private Health Insurance [facility] [id number] 2021-Present [address] [address] [place] [address] [id number] 1959 Unknown [id number] 2.16.840.1.608135.3.579. 2.593 1959 Unknown [id number] 2.16.840.1.668638.3.579. 2.593 1959 Unknown [id number] 2.16.840.1.317843.3.579. 2.593 1959 Unknown [id number] 2.16.840.1.909338.3.579. 2.593 1959 Unknown [id number] 2.16.840.1.337131.3.579. 2.593 1959 Unknown [id number] 2.16.840.1.941200.3.579. 2.593 1959 Unknown [id number] 2.16.840.1.073847.3.579. 2.983 1959 Unknown [id number] 2.16.840.1.992437.3.579. 2.983 1959 Unknown [id number] 2.16.840.1.073346.3.579. 2.983 1959 Unknown [id number] 2.16.840.1.294793.3.579. 2.983 1959 Unknown [id number] 2.16.840.1.577513.3.579. 2.983 1959 Unknown [id number] 2.16.840.1.339728.3.579. 2.1259 1959 Unknown [id number] 2.16.840.1.840003.3.579. 2.732 1959 Unknown [id number] 2.16.840.1.549280.3.579. 2.732 1959 Unknown [id number] 2.16.840.1.172367.3.579. 2.732 1959 Unknown [id number] 2.16.840.1.930676.3.579. 2.732 1959 Unknown [id number] 2.16.840.1.099249.3.579. 2.2 1959 Unknown [id number] 2..840.1.722763.3.579. 2.2 1959 Unknown [id number] 2.16840.1.923119.3.579. 2.732 1959 Unknown [id number] 2.16.840.1.139489.3.579. 2.2 1959 Unknown [id number] 2.16.840.1.667258.3.579. 2.2 1959 Unknown [id number] 2.16840.1.006958.3.579. 2.732 1959 Unknown [id number] 2.16.840.1.399464.3.579. 2.732 1959 Unknown [id number] 2.840.1.345430.3.579. 2.732 1959 Unknown [id number] .16840.1.549551.3.579. 2.732 1959 Private Health Insurance [id number] 1960 Self-pay [id number] 1959 Unknown [id number] Unknown [id number] 2.16.840.1.878026.3.579. 2.531 Social History Date Type Detail Facility Start: 05-30-2022 End: 03-21-2024 Tobacco smoking status NHIS Never smoked tobacco [facility] Start: 05-30-2022 End: 03-21-2024 Tobacco use and exposure Smokeless tobacco non-user [facility] Start: 1960 Sex Assigned At Not on file [facility] Start: 05-29-2022 End: 06-08-2022 Exposure to SARS-CoV-2 (event) Not sure [facility] Tobacco smoking status WYIS Tobacco smoking consumption unknown [facility] Start: 03-21-2024 Gender identity Not on file [facility] Start: 03-21-2024 End: 05-30-2024 Tobacco smoking status WYIS Ex-smoker [facility] History of tobacco use Current smoker [facility] History of tobacco use Cigarette Smoker [facility] Start: 03-21-2024 Alcoholic beverage intake Lifetime non-drinker (finding) [facility] Start: 03-21-2024 History of Social function [facility] Start: 03-18-2024 End: 06-19-2024 [facility] ([facility] Start: 1960 Sex Assigned At Female [facility] NEGATED: Highlighted rowStart: NINF History of tobacco use Passive smoker [facility] Medical Equipment Procedure Code Equipment Code Equipment Original Text Equi pment Identifier Dates Tests BS daily a nd as needed. 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 2:19pm BMI 33.0-33.9,adult acute June 19, 2024 1:29pm Dietary counseling and surveillance acute June 19, 2024 1:29pm Hyperlipidemia acute June 19, 2024 1:29pm Hypertension acute June 19, 2 025 1:29pm Uncontrolled diabetes mellitus due to underlying condition with diabetic acute June 19, 2024 1:29pm [facility] Work Phone: [phone] 758-451101-08-2025 Telephone encounter Note* Telephone Encounter - Kelly Askew MD - 03/26/2024 12:10 PM EST prn [id number] Miscellaneous Notes* Telephone Encounter - Kelly Askew MD - 03/26/2024 12:10 PM EST prn * Telephone Encounter - Kristie Askew - 03/26/2024 11:50 AM EST Pt cancelled follow up appt/she had the US and lab done. Per Dr Askew he will not do her surgery so no need for appt. documented in [facility] [id number] Telephone encounter Note* Telephone Encounter - Kristie Askew - 03/26/2024 11:50 AM EST Pt cancelled follow up appt/she had the US and lab done. Per Dr Askew he will not do her surgery so no need for appt. [facility] [id number] Telephone encounter Note* Telephone Encounter - Kelly Askew MD - 03/24/2024 2:16 PM EST Pt called to notify her US showed no chenge in the size of her mass. She notified me that after seeing me last week she saw someone else the same day, and has been scheduled for surgery. F/U with me prn [facility] [id number] Miscellaneous Notes* Telephone Encounter - Kelly Askew MD - 03/24/2024 2:16 PM EST Pt called to notify her US showed no chenge in the size of her mass. She notified me that after seeing me last week she saw someone else the same day, and has been scheduled for surgery. F/U with me prn documented in this encounterWestern [facility] [id number] History of Present illness Narrative* Dallin Gonzalez MD - 03/21/2024 2:56 PM EST CC: Chief Complaint Patient presents with lump on right side of neck New patient, to establish relationship HPI: Josie Veliz is a 63 year old female referred by family medicine for evaluation of a right-side neck mass that's been present since about a week before Thanksgiving. She doesn't think it's grown. No pain [...] copy of the scan on my phone. All medical record entries made by the scribe were at my direction and personally dictated by me. Yuliana reviewed and edited the record and confirm that the note above accurately reflects all work, treatment, procedures, and medical decision making performed by me. Dallin Gonzalez MD documented in this [id number] History of Present illness Narrative* Kelly Askew MD - 03/21/2024 10:00 AM EST Subjective Patient ID: Josie Veliz is a 63 y.o. female who presents for Neck Mass Pt reports in mid January she developed a painless RT submandibular mass. CT obtained that shows an irregular 6cm Mass with extension inferolaterally and superiorly medial to the mandible into the FOM. FNA obtained that shows lymphocytes and AUS. Mass is painless. Pt states she feels mass smaller,but loved-ones disagree. Pt states she has a [...] by mouth in the morning and 1,000 mgbefore bedtime. temazepam (Restoril) 30 MG capsule TAKE [...] ESR for possible sjogrens documented in this encounterWestern Missouri Mental Health [id number] History of Present illness Narrative* Marilee Taveras - 06/22/2022 2:40 PM EDT Review of Systems Constitutional: Negative for chills [...] bruise/bleed easily. Psychiatric/Behavioral: Negative for dysphoric mood. * Hector Joesph PA-C - 06/22/2022 2:40 PM EDT 06/22/22 HPI: Josie Veliz presents to the [...] an as needed basis. documented in this [facility]03-23-2023 Hospital Discharge instructions* Discharge Instructions* Marita Figueroa RN - 06/08/2022 1:18 PM [...] especially in the fingers, and aid in lesseningstiffness following surgery. In addition, you may be instructed to begin a therapy program in the days following your surgery. If this is the case, you will be notified. If there are any questions or problems, please feel free to contact your physician by calling [phone] ([phone]). If it is after hours you can contact the television reporter doctor by calling [facility] at . Prescription refills will only be done during normal business hours. Please allow 48 hours for your prescription to be refilled. There are certain restrictions that apply to the first 24 hours following surgery, especially afterhaving a general or regional anesthetic: 1. Do [...] the next 24 hours. documented in this [facility]03-23-2023 Nurse Surgical operation note* Raquel Castañeda RN - 06/08/2022 1:10 PM EDT Patient transported to outpatient [place] via bed. Bed locked and lowered, rails up. Monitors reapplied vitals stable. Call light within reach. Family/friend at bedside. Report given to Marita MARADIAGA. [facility]03-23-2023 Nurse Note* Raquel Castañeda RN - 06/08/2022 1:10 PM EDT Patient transported to outpatient [place] via bed. Bed locked and lowered, rails up. Monitors reapplied vitals stable. Call light within reach. Family/friend at bedside. Report given to Marita MARADIAGA. documented in this [facility]03-23-2023 Note* Op Note - Melodie Wilde MD - 06/08/2022 1:01 PM EDT DATE: 06/08/2022 Patient: Josie Veliz Pre-Op Dx: Mass of finger of right hand [R22.31] Post-Op Dx: Mass of finger of right hand [R22.31] Procedure: Procedure(s) (LRB): EXCISION SOFT TISSUE FINGER HAND *WALANT* rt (Right) Surgeon: Surgeon(s) and Role: * Melodie Wilde MD - Primary Electro Mechanic: * No surgical staff found * ANESTHESIA [...] like the letter T is made over thethumb interphalangeal joint. At this point in time, full- thickness skin flaps are created, taking care to protect the extensor tendon. Once the skin flaps are elevated, an incision is made on the radial and ulnar border of the extensor tendon, taking care to protect the extensor tendon and maintainin the distal interphalangeal joint and maximum extension. [...] stable condition, having tolerated the procedure well. T [facility]03-23-2023 Note* Brief Op Note - Melodie Wilde MD - 06/08/2022 1:01 PM EDT DATE: 06/08/2022 Patient: Josie Veliz Pre-Op Dx: Mass of finger of right hand [R22.31] Post-Op Dx: Mass of finger of right hand [R22.31] Procedure: Procedure(s) (LRB): EXCISION SOFT TISSUE FINGER HAND *WALANT* rt (Right) Surgeon: Surgeon(s) and Role: * Melodie Wilde MD - Primary Electro Mechanic: * No surgical staff found * ANESTHESIA TYPE: * No anesthesia type entered * INTRAVENOUS FLUIDS: Per anesthesia record ESTIMATED BLOOD LOSS: Per anesthesia record Specimens: * No specimens in log * Implants: * No implants in log * COMPLICATIONS: * No complications entered in OR log * DISPOSITION: To the recovery room in stable condition [facility]03-23-2023 Miscellaneous Notes* Op Note - Melodie Wilde MD - 06/08/2022 1:01 PM EDT DATE: 06/08/2022 Patient: Josie Veliz Pre-Op Dx: Mass of finger of right hand [R22.31] Post-Op Dx: Mass of finger of right hand [R22.31] Procedure: Procedure(s) (LRB): EXCISION SOFT TISSUE FINGER HAND *WALANT* rt (Right) Surgeon: Surgeon(s) and Role: * Melodie Wilde MD - Primary Electro Mechanic: * No surgical staff found * ANESTHESIA [...] like the letter T is made over thethumb interphalangeal joint. At this point in time, full- thickness skin flaps are created, taking care to protect the extensor tendon. Once the skin flaps are elevated, an incision is made on the radial and ulnar border of the extensor tendon, taking care to protect the extensor tendon and maintainin the distal interphalangeal joint and maximum extension. [...] stable condition, having tolerated the procedure well. * Brief Op Note - Melodie Wilde MD - 06/08/2022 1:01 PM EDT DATE: 06/08/2022 Patient: Josie Alt Pre-Op Dx: Mass of finger of right hand [R22.31] Post-Op Dx: Mass of finger of right hand [R22.31] Procedure: Procedure(s) (LRB): EXCISION SOFT TISSUE FINGER HAND *WALANT* rt (Right) Surgeon: Surgeon(s) and Role: * Melodie Wilde MD - Primary Electro Mechanic: * No surgical staff found * ANESTHESIA TYPE: * No anesthesia type entered * INTRAVENOUS FLUIDS: Per anesthesia record ESTIMATED BLOOD LOSS: Per anesthesia record Specimens: * No specimens in log * Implants: * No implants in log * COMPLICATIONS: * No complications entered in OR log * DISPOSITION: To the recovery room in stable condition documented in this [facility]03-23-2023 Attending History and physical note* Melodie Wilde MD - 06/08/2022 11:00 AM EDT I have examined the patient and reviewed [...] Risks and benefits of surgical intervention were reviewed.She understands the risks and benefits, and does wish to proceed. She will be placed on the schedule in the near future. T [facility]03-23-2023 History and physical note* Melodie Wilde MD - 06/08/2022 11:00 AM EDT I have examined the patient and reviewed [...] Risks and benefits of surgical intervention were reviewed.She understands the risks and benefits, and does wish to proceed. She will be placed on the schedule in the near future. documented in this [facility]03-14-2023 History and physical note* Melodie Wilde MD - 05/30/2022 8:00 AM [...] Risks and benefits of surgical intervention were reviewed.She understands the risks and benefits, and does wish to proceed. She will be placed on the schedule in the near future. [facility] Work Phone: [phone]) 794-969403-14-2023 History and physical note* Melodie Wilde MD - 05/30/2022 8:00 AM [...] Risks and benefits of surgical intervention were reviewed.She understands the risks and benefits, and does wish to proceed. She will be placed on the schedule in the near future. documented in this [facility]03-14-2023 History of Present illness Narrative* Mike Bettencourt - 05/30/2022 8:00 AM EDT Review of Systems Constitutional: Negative for chills, [...] Positive for dysphoric mood. [facility]* Diagnosis Mass of finger, right- Primary Mass of finger of right hand Localized superficial swelling, mass, or lump [facility] Diagnosis Post-op pain- Primary Other acute postoperative pain documented in this encounter [facility]Evaluchristianac[facility] note* Diagnosis H/O excision of mass- Rt thumb IP jt mucous cyst- Primary Personal history of surgery to other organs documented in this encounter [facility]* Diagnosis Neck mass- Primary Swelling, mass, or lump in head and neck documented in this encounter [facility]* Diagnosis Submandibular gland mass- Primary Other specified diseases of the salivary glands documented in this encounter [facility]Evaluation noteNo assessment information availableMer[facility] Work Phone: Evaluation note* Diagnosis Onset Date Resolution Status Admit Date Marginal zone lymphoma acute [facility] 2024 2:19pm [facility] Work Phone: Summary Purpose Family History No Family History Records Found Relationship Condition Age at Onset Recorded Date/T morris father Malignant neoplasm o f urinary bladder Unknown Cerebrovascular accident (CVA) Unknown maternal grandmother Malignant neoplasm Unknown mother Dementia Unknown Relationship Condition Age at Onset Recorded Date/T morris father Malignant neoplasm o f urinary bladder Unknown Cerebrovascular accident (CVA) Unknown Diabetes mellitus Unknown maternal grandmother Heart disease Unknown mother Dementia Unknown High blood cholesterol Unknown Hypertension Unknown paternal grandfather Malignant neoplasm Unknown paternal grandmother Malignant neoplasm Unknown Advance Directives No Advanced Directives Records Found Advance Directive Response Recorded Date/ Time Advance Directives Yes May 28 7:35am Reason for Referral Specialty Diagnoses / Procedures Referred By Contac t Referred To Contact Diagnoses Mass of finger, right Procedures XR THUMB RIGHT Melodie Wilde MD [address] [place] [address] Referral ID Status Reason Start Date Expiration Date V isits Requested Visits Authorized [id number] New Request 05/22/2022 06/16/2023 1 1 Chief Complaint and Reason for Visit Chief Complaint Admit Date Unknown March 05, 2024 9:44am NEW- Marginal zone lymphoma neck. May 30, 2024 2:44pm Marginal zone lymphoma neck May 30, 2024 2:45pm Chief Complaint Admit Date NEW- Marginal zone lymphoma neck. May 30, 2024 2:44pm Marginal zone lymphoma neck May 30, 2024 2:45pm New Patient, B-Cell Lymphoma (H+N) June 10, 2024 2:19pm Reason for Visit Admit Date Marginal zone lymphoma June 10, 2024 2:19pm Chief Complaint Admit Date NEW- Marginal zone lymphoma neck. May 30, 2024 2:44pm New Patient, B-Cell Lymphoma (H+N) June 10, 2024 2:19pm Marginal zone lymphoma neck June 19, 2 025 10:32am Referral Dr. Cope-Confirmed 06/12-No Meter June 19, 2024 1:29pm Reason for Visit Admit Date Marginal zone lymphoma June 10, 2024 2:19pm BMI 33.0-33.9,adult June 19, 2024 1:29 pm Dietary counseling and surveillance Apri l 2024 1:29pm Hyperlipidemia June 19, 2024 1:29 pm Hypertension June 19, 2024 1:29 pm Uncontrolled diabetes mellit us due to underlying condition with diabetic June 19, 2024 1:29pm Additional Source Comments INFORMATION SOURCE (unrecogn ized section and content) DATE CREATED AUTHOR 05/26/2022 [facility] DATE CREATED AUTHOR AUTHOR'S ORGANIZ ATION 06/23/2022 [facility] DATE CREATED AUTHOR AUTHOR'S ORGANIZ ATION 03/28/2024 [facility] EP[facility] DATE CREATED AUTHOR AUTHOR'S ORGANIZ ATION 06/05/2024 [facility] DATE CREATED AUTHOR AUTHOR'S ORGANIZ ATION 06/27/2024 [facility] Reason for Visit (unrecogniz ed section and content) Specialty Diagnoses / Procedures Referred By Paige powell Referred To Contact Diagnoses Mass of finger, right Procedures XR THUMB RIGHT Melodie Wilde MD [address] [place] [address] Referral ID Status Reason Start Date Expiration Date V isits Requested Visits Authorized [id number] New Request 05/22/2022 06/16/2023 1 1 Reason Comments Consult Nodule on Rt.thumb Specialty Diagnoses / Procedures Referred By Paige powell Referred To Contact Diagnoses Mass of finger of right hand Mass of finger of right hand [R22.31] Procedures MN EXC MAXWELL/VASC MAL SFT TISS HAND/FNGR SUBQ <1.5CM EXCISION SOFT TISSUE FINGER HAND Melodie Wilde MD [address] [place] [address] Referral ID Status Reason Start Date Expiration Date Visits Re quested Visits Authorized [id number] 05/31/2022 1 1 Reason Comments Follow-up S/p [...] Diagnoses Neck mass Maria R Garcia MD [address] [place] [address] Phone: tel: fax: Referral ID Status Reason Start Date Expiration Date V isits Requested Visits Authorized [id number] Authorized 03/18/2024 03/18/2025 3 3 Care Teams (unrecognized sec tion and content) Order Manager Relationship Specialty Start Date End Date Maria R Garcia MD [address] [place] [id number] PCP - General Family Medicine 04/04/22 Order Manager Relationship Specialty Start Date End Date Maria R Garcia MD [address] [place] [id number] PCP - General Family Medicine 04/04/22 Order Manager Relationship Specialty Start Date End Date Maria R Garcia MD [address] [place] [id number] PCP - General Family Medicine 04/04/22 Order Manager Relationship Specialty Start Date End Date Maria R Garcia MD [address] [place] [id number] PCP - General Family Medicine 04/04/22 Order Manager Relationship Specialty Start Date End Date Maria R Garcia MD [address] [place] [address] PCP - General Family Medicine 03/14/24 Order Manager Relationship Specialty Start Date End Date Maria R Garcia MD [address] [place] [address] PCP - General Family Medicine 03/14/24 Order Manager Relationship Specialty Start Date End Date Maria R Garcia MD [address] [place] [address] PCP - General Family Medicine 03/14/24 Order Manager Relationship Specialty Start Date End Date Dallin Gonzalez MD [address] [place] [address] Physician Otolaryngology 03/22/24 Order Manager Relationship Specialty Start Date End Date Maria R Garcia MD [address] [place] [address] PCP - General Family Medicine 03/14/24 Order Manager Relationship Specialty Start Date End Date Dallin Gonzalez MD [address] [place], [place] [id number] Physician Otolaryngology 03/22/24 Team Status: Active Member Role Status Dates Maria R Garcia MD Primary Care Provider Active Team Status: Inactive Member Role Status Dates Maria R Garcia MD Attending Provider Active Sta rt: March 05, 2024 End: March 05, 2024 Team Status: Inactive Member Role Status Dates Jack Cope II, DO Attending Provider Active Start: May 30, 2024 End: May 30, 2024 Maria R Garcia MD Primary Care Provider Active Start: May 30, 2024 End: May 30, 2024 Dallin Gonzalez MD Referring Provider Active St art: May 30, 2024 End: May 30, 2024 Team Status: Active Member Role Status Dates Maria R Garcia MD Primary Care Provider Active Start: May 30, 2024 Jack Cope II, DO Attending Provider Active Start: May 30, 2024 Dallin Gonzalez MD Referring Provider Active St art: May 30, 2024 Team Status: Inactive Member Role Status Dates Maria R Garcia MD Primary Care Provider Active Start: June 10, 2024 End: June 10, 2024 Bouchra Snowden MD Attending Provider Active Start: June 10, 2024 End: June 10, 2024 Team Status: Active Member Role Status Dates Maria R Garcia MD Primary Care Provider Active Start: June 19, 2024 Jack Cope II, DO Attending Provider Active Start: June 19, 2024 Dallin Gonzalez MD Referring Provider Active St art: June 19, 2024 Team Status: Inactive Member Role Status Dates Maria R Garcia MD Primary Care Provider Active Start: June 19, 2024 End: June 19, 2024 Antonella Lin APRN Attending Provider Active Start: June 19, 2024 End: June 19, 2024 Scheduled Active and Recently Administ ered Medications [...] (Given - Provid er: Melodie Wilde MD) Goals (unrecognized section and content) Goals may be documented in a n alternate sectionGoals may be documented in an alternate sectionGoals may be documented in an alternate section FOR RECORDS PERTAINING TO PATIENTS WHO ARE [...] BE BASED ON THE PRIMARY CLINICAL RECORDS. [employer] provides no warranty or guarantee of the accuracy or completeness of information in this document.
== END 2024-06-27 11:46 | disposition home or self-care (01) ==
LOC: LAB 11:45
PROVIDERS: PCP Family Medicine; Visit Provider Family Medicine
DX: J20.9 Acute bronchitis, unspecified (principal)
CPT/HCPCS: 87070; 87205

== ENCOUNTER 2024-07-30 09:30 | Outpatient (OUT) | payer MEDICARE, OTHER, SELFPAY ==
--- NOTE | 2024-07-30 09:37 | XR_ITS ---
The [address] [address] Patient Name: JOSIE CABRERA MRN: [id number] date: 1960 Sex: F Assigned Patient Location: [facility] Current Patient Location: [facility] Accession/Order Number: [id number] Exam Date: 07/30/2024 10:17 Report Date: 07/30/2024 10:18 At the request of: MARIA R MARSHALL MD Procedure: XR chest 2V XR chest 2V 07/30/2024 9:45 AM SIGNS AND SYMPTOMS: ^Lymphoma, Hypertension , acute cough PROTOCOL: Frontal and lateral radiographs of the chest COMPARISON: 07/06/2024 FINDINGS: The trachea is midline. Atherosclerotic changes are present in the thoracic aorta. The heart and mediastinal structures are within normal limits. The lung parenchyma is clear. The bony thorax is intact. Degenerative changes are present in the thoracic spine. There is a dextro convex curvature of the thoracic spine. XR/XR chest 2V IMPRESSION: No acute cardiopulmonary pathology. Impression dictated by: Channing Peña M.D. 07/30/2024 10:18 AM Dictation Location: [place] [address] Electronically authenticated by: [id number] Date: 07/30/2024 10:18
== END 2024-07-30 09:31 | disposition home or self-care (01) ==
LOC: RAD 09:32
PROVIDERS: PCP Family Medicine; Visit Provider Family Medicine
DX: E78.00 Pure hypercholesterolemia, unspecified (principal); I10 Essential (primary) hypertension; C85.90 Non-Hodgkin lymphoma, unspecified, unspecified site
CPT/HCPCS: 71046

== ENCOUNTER 2024-12-13 11:19 | Emergency (ER) | payer MEDICARE, OTHER, SELFPAY ==
--- OUTSIDE RECORDS SUMMARY | 2024-12-01 10:23 | XMS_ITS ---
Author Name Auto Generated Organization OHIP Support Name Relationship Address Phone Keren, Mynor Next of Kin Unknown + Alt-Lan, Anita Next of Kin Unknown [phone] Alt, Mynor Next of Kin Unknown + Alt-Lan, Anita Next of Kin Unknown [phone] ALT, MYNOR Next of Kin [address] [place] [address] Unavailable ALT, MYNOR Next of Kin [address] [place] [address] Unavailable ALT, MYNOR Next of Kin [address] [place] [address] Unavailable ALT, MYNOR Next of Kin [address] [place] [address] Unavailable ALT, MYNOR Next of Kin [address] [place] [address] Unavailable ALT, MYNOR Next of Kin [address] [place] [address] Unavailable ALT, MYNOR Next of Kin [address] [place] [address] Unavailable ALT, MYNOR Next of Kin [address] [place] [address] Unavailable ALT, MYNOR Next of Kin [address] [place] [address] Unavailable ALT, MYNOR Next of Kin [address] [place] [address] Unavailable ALT, MYNOR Next of Kin [address] [place] [address] Unavailable ALT, MYNOR Next of Kin [address] [place] [address] Unavailable ALT, MYNOR Next of Kin Unknown + Care Team Providers Care Railroad Firer/Fireman Name Role Phone KELLY ASKEW Attending Unavailable Claude Cope II Attending Unavaila jenny Cope II, Claude Waldron Admitting Unavaila Dallin West Referring Unavailable Hoy, Maria R M Primary Care Unavailable Antonella Lin C Admitting Unavailable Antonella Lin C Attending Unavailable Alejandrojameel Maria R M Attending Unavailable Maria R Garcia M Admitting Unavailable PROVIDER, UNKNOWN Admitting Unavailable PROVIDER, UNKNOWN Attending Unavailable DALLIN GONZALEZ. Attending Unavailable MARIA R GARCIA. Referring Unavailable PROVIDER, UNKNOWN Admitting Unavailable DALLIN GONZALEZ H. Referring Unavailable PROVIDER, UNKNOWN Admitting Unavailable PROVIDER, UNKNOWN Attending Unavailable DALLIN GONZALEZ H. Attending Unavailable DALLIN GONZALEZ H. Admitting Unavailable SATHYADALLIN H. Referring Unavailable SATHYADALLIN VELASQUEZ H. Referring Unavailable PROVIDER, UNKNOWN Admitting Unavailable PROVIDER, UNKNOWN Attending Unavailable DALLIN GONZALEZ H. Referring Unavailable PROVIDER, UNKNOWN Admitting Unavailable PROVIDER, UNKNOWN Attending Unavailable DALLIN GONZALEZ H. Referring Unavailable PROVIDER, UNKNOWN Admitting Unavailable PROVIDER, UNKNOWN Attending Unavailable DALLIN GONZALEZ H. Referring Unavailable PROVIDER, UNKNOWN Admitting Unavailable PROVIDER, UNKNOWN Attending Unavailable PROVIDER, UNKNOWN Attending Unavailable PROVIDER, UNKNOWN Admitting Unavailable SATHYA, DALLIN H. Attending Unavailable PROVIDER, UNKNOWN Admitting Unavailable DALLIN GONZALEZ H. Attending Unavailable PROVIDER, UNKNOWN Admitting Unavailable DALLIN GONZALEZ H. Attending Unavailable PROVIDER, UNKNOWN Admitting Unavailable PROVIDER, UNKNOWN Attending Unavailable PROVIDER, UNKNOWN Admitting Unavailable PROBLEMS DATE TYPE CONDITION / CODE ATTENDING STATUS [facility] 12/01/2024 Unknown Other specified types of non-Hodgkin lymphoma, lymph nodes of head, face, and neck / C85.81(ICD-10) Claude Cope II [facility] 12/01/2024 Unknown Other specified types of non-Hodgkin lymphoma, unspecified site / C85.80(ICD-10) Claude Cope II [facility] 08/19/2024 Unknown Type 2 diabetes mellitus without complications / E11.9(ICD-10) Antonella Lin [facility] 03/24/2024 Active 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 PROCEDURES No Procedure Records Found RESULTS PET TUMOR SUBQ TX STRAT SB-MT Observed: 11/26/2024 1:42 PM Status: COMPLETED Source: [facility] [place] [address] Nuclear Medicine Report Signed Patient: Fely Veliz I MR#: [id number] : 1960 Acct:[id number] Age/Sex: 64 / F ADM Date: 11/26/24 Loc: XT Room: Type: [facility] RCR Attending Dr: Claude Cope II, DO Copies to: Sam Em Jr, DO Timothy J Adamowicz, II, DO Ordering Provider: Claude Cope II, DO Date of Service: 11/26/24 PET/PET tumor subq tx strat sb-mt: C85.80 - Other specified types of non- Hodgkin lymphoma, u... PET/CT FUSION IMAGING CLINICAL INFORMATION: Lymphoma involving the neck. COMPARISON : CT soft tissue neck 09/26/2024 TECHNIQUE: Noncontrasted CT scan from the base of the skull to the upper thigh followed by PET imaging. Multiplanar PET/CT fusion images. Blood Glucose : 159 mg/dL The F-18 FDG 11.534mCi. FINDINGS: Neck: Postsurgical changes are seen involving the right neck. No FDG avid lymph nodes. Chest:No abnormal activity. Abdomen/pelvis: No abnormal activity. Soft tissue/bones: No abnormal activity. CT findings: No pneumothorax. No pericardial or pleural effusions. No free air or free fluid. PET/PET tumor subq tx strat sb-mt IMPRESSION: Negative PET CT. Impression dictated by: Sam Em Jr., D.O. 11/26/2024 1:47 PM Dictation Location: [place] [address] Transcribed By: [facility] 11/26/24 1347 Dictated By: Sam Em Jr, DO 11/26/24 1342 Signed By: <Electronically signed by Sam Em Jr, DO in OV> 11/26/24 1347 GLUCOSE POCT GLUCOMETERS Collected: 11/26/2024 8:03 A M Status: F Source: [facility] TYPE CODE TESTS RESULT OUT OF RANGE REFERENCE UNITS LAB GLUPOC Glucose Poc Glucometers 159 mg/dL Result Comment: Random Gluco se Reference Range is dependent on time and content of last meal. Glucose of more than 200 mg/dL in a nonstressed, ambulatory subject supports the diagnosis of Diabetes Mellitus. PERFORMED BY: [place] [address] PATHOLOGIST GENERAL FARMER CINTHIA PIERRE M.D. Performed By: #### GLULS ### # Point of Care testing , COMPREHENSIVE METABOLIC PANEL Collected: 11/26/2024 8 :00 AM Status: F Source: [facility] TYPE CODE TESTS RESULT OUT OF RANGE REFERENCE UNITS LAB GLU Glucose 157 High 70-100 mg/dL Result Comment: Random Gluco se Reference Range is dependent on time and content of last meal. Glucose of more than 200 mg/dL in a nonstressed, ambulatory subject supports the diagnosis of Diabetes Mellitus. ADA recommended reference range LAB BUN Blood Urea Nitrogen 22 Normal 7-25 mg/d L LAB CREATT Creatinine 0.88 Normal 0.60-1.20 mg/dL LAB GFReNR Estimated GFR >60.0 LAB NA Sodium 140 Normal 136-145 mmol/L LAB K Potassium 4.2 Normal 3.5-5.1 mmol/L LAB CL Chloride 104 Normal 98-107 mmol/L LAB CO2 Carbon Dioxide 27.6 Normal 21.0-31.0 mmol/L LAB GAP Anion Gap 12.6 Normal 6.0-15.0 LAB CA Calcium 8.9 Normal 8.6-10.3 mg/dL LAB TP Total Protein 6.5 Normal 6.4-8.9 g/dL LAB ALB Albumin Level 4.4 Normal 3.5-5.7 g/dL LAB GLOB Globulin 2.1 g/dL LAB AGRATIO Albumin/Globulin Ratio 2.1 LAB BILIT Bilirubin,Total 0.5 Normal 0.3-1.0 mg/dL LAB AST Aspartate Amino Transferase 18 Normal 13-39 U/L LAB ALT Alanine Aminotransferase 19 Normal 7-52 U/L LAB ALP Alkaline Phosphatase 48 Normal 34-104 U/L LAB CRCLPHA Creatinine Clr C alc Pharmacy 72.68 Performed By: #### ESR, CBC, CMP, LDH #### [address] #### KOSTAS SERUM, SPE, KAPPA, B2-MICRO #### [facility] , LDH LACTATE DEHYDROGENASE Collected: 11/26/2024 8:00 AM Status: F Source: [facility] TYPE CODE TESTS RESULT OUT OF RANGE REFERENCE UNITS LAB LDH LDH Lactate Dehydrogenase 209 Normal 140-271 U/L Result Comment: PERFORMED BY : [facility] [address] [place] [address] PATHOLOGIST GENERAL FARMER CINTHIA PIERRE M.D. Performed By: #### ESR, CBC, CMP, LDH #### [facility] [address] #### KOSTAS SERUM, SPE, KAPPA, B2-MICRO #### [facility] , COMPLETE BLOOD COUNT AUTO DIFF Collected: 11/26/2024 8:00 AM Status: F Source: F [facility] TYPE CODE TESTS RESULT OUT OF RANGE REFERENCE UNITS LAB WBC White Blood Count 4.9 Normal 3.8-11.6 [CFU]/mL LAB UNWBC Uncorrected WBC 4.9 Normal 3.8-11.6 10*3/uL LAB RBC Red Blood Count 4.33 Normal 3.60-5.00 10*6/u L LAB HGB Hemoglobin 11.6 Low 11.8-15.4 g/dL LAB HCT Hematocrit 35.0 Normal 34.0-46.4 % LAB MCV Mean Corpuscular Volume 80.6 Normal 80-100 fL LAB MCH Mean Corpuscular Hemoglobin 26.7 Normal 24.7-34.3 pg LAB MCHC Mean Corpuscular HGB Conc 33.1 Normal 32.0-35.0 g/dL LAB RDW Red Cell Distribution Width 16.0 High 11.9-15.3 % LAB PLT Platelet Count 237 Normal 150-450 10*3/uL LAB MPV Mean Platelet Volume 7.7 Normal 6.3-10.7 fL LAB NE% Neutrophils % (Auto) 45.2 . % LAB LY% Lymphocytes % (Auto) 34.2 . % LAB MO% Monocytes % (Auto) 12.4 . % LAB EO% Eosinophils % (Auto) 6.4 . % LAB BA% Basophils % (Auto) 1.8 . % LAB NRBC% NRBC% 0.1 Normal 0-0.5 /100{WBC} LAB NE# Neutrophils # (Auto) 2.2 Normal 1.8-7.7 10*3/uL LAB LY# Lymphocytes # (Auto) 1.7 Normal 1.00-4.8 10*3/uL LAB MO# Monocytes # (Auto) 0.6 Normal 0.0-0.8 10*3/uL LAB EO# Eosinophils # (Auto) 0.3 Normal 0.0-0.45 10*3/uL LAB BA# Basophils # (Auto) 0.1 Normal 0.0-0.2 10*3/uL Performed By: #### ESR, CBC, CMP, LDH #### [address] #### KOSTAS SERUM, SPE, KAPPA, B2-MICRO #### [facility] , ERYTHROCYTE SEDIMENTATION RATE Collected: 11/26/2024 8:00 AM Status: F Source: [facility] TYPE CODE TESTS RESULT OUT OF RANGE REFERENCE UNITS LAB ESR Erythrocyte Sedimentation Rate 4 Normal 0-29 Result Comment: PERFORMED BY : [place] [address] PATHOLOGIST GENERAL FARMER CINTHIA PIERRE M.D. Performed By: #### ESR, CBC, CMP, LDH #### [address] #### KOSTAS SERUM, SPE, KAPPA, B2-MICRO #### [facility] , IMMUNOFIXATION,SERUM Collected: 8:00 AM Status: F Source: [facility] TYPE CODE TESTS RESULT OUT OF RANGE REFERENCE UNITS LAB KOSTAS SERUM. Immunofixation, Serum Comment . Result Comment: No monoclona lity detected. LAB IGG Immunoglobulin G 972 961-8032 mg/dL LAB IGA Immunoglobulin A, Serum 109 87-352 mg/dL LAB IGM Immunoglobulin M, Serum 85 26-217 mg/dL Result Comment: Performed at : [facility] [address] [id number] Major Donor Coordinator: Raymond Maravilla PhD, Phone: [phone] Performed By: #### ESR, CBC, CMP, LDH #### [address] #### KOSTAS SERUM, SPE, KAPPA, B2-MICRO #### [facility] , BETA 2 MICROGLOBULIN, SERUM Collected: 11/26/2024 8:00 AM Status: F Source: [facility] TYPE CODE TESTS RESULT OUT OF RANGE REFERENCE UNITS LAB B2-MICRO Beta 2 Microglobu noah, Serum 1.9 0.6-2.4 mg/L Result Comment: Siemens Immu lite 2000 Immunochemiluminometric assay (ICMA) Values obtained with different assay methods or kits cannot be used interchangeably. Results cannot be interpreted as absolute evidence of the presence or absence of malignant disease. Performed at: [facility] [address] [id number] Major Donor Coordinator: Briana Busch MD, Phone: [phone] Performed By: #### ESR, CBC, CMP, LDH #### [address] #### KOSTAS SERUM, SPE, KAPPA, B2-MICRO #### [facility] , PROTEIN ELECTROPHORESIS, SERUM Collecte d: 11/26/2024 8:00 AM Status: F Source: [facility] TYPE CODE TESTS RESULT OUT OF RANGE REFERENCE UNITS LAB SPETP Total Protein, Serum 6.2 6.0-8.5 g/dL LAB SPEALB Albumin, Serum 3.9 2.9-4.4 g/dL LAB SPEA1G Htwgy-0-Aeal ulin 0.2 0.0-0.4 g/dL LAB SPEA2G Aygeg-3-Qznn ulin 0.7 0.4-1.0 g/dL LAB SPEBG Beta Globulin 1.0 0.7-1.3 g/dL LAB SPEGG Gamma Globulin 0.5 0.4-1.8 g/dL LAB SPEMS M-Ky Not Observed Not Observed g/dL LAB SPEGLOB Globulin, Total 2.3 2.2-3.9 g/dL LAB SPEAG A/G Ratio 1.7 0.7-1.7 LAB SPENOTE SPE-Note Comment . Result Comment: Protein elec trophoresis scan will follow via computer, mail, or machine tool dresser delivery. Performed at: [facility] [address] [id number] Major Donor Coordinator: Raymond Maravilla PhD, Phone: [phone] Performed By: #### ESR, CBC, CMP, LDH #### [address] #### KOSTAS SERUM, SPE, KAPPA, B2-MICRO #### [facility] , FREE K+L LT CHAINS, QN, S Collected: 11/26/2024 8:00 AM Status: F Source: [facility] TYPE CODE TESTS RESULT OUT OF RANGE REFERENCE UNITS LAB KAPPA LTC Free [place] Light Chains, S 19.3 3.3-19.4 mg/L LAB LAMBDA LTC Free Lambda Light Chains, S 12.1 5.7-26.3 mg/L LAB KL RATIO. [place]/Lambda Ratio, S 1.60 0.26-1.65 Result Comment: Performed at : - [facility] [place] [id number] Major Donor Coordinator: Raymond Maravilla PhD, Phone: [phone] PERFORMED BY: [place] [address] PATHOLOGIST GENERAL FARMER CINTHIA PIERRE M.D. Performed By: #### ESR, CBC, CMP, LDH #### [address] #### KOSTAS SERUM, SPE, KAPPA, B2-MICRO #### [facility] , CT SOFT TISSUE NECK W CON Observed: 09/16 3:33 PM Status: COMPLETED Source: [facility] [place] [address] CT Scan Report Signed Patient: Fely Veliz I MR#: [id number] : 1960 Acct:[id number] Age/Sex: 64 / F ADM Date: 09/26/24 Loc: XT Room: [facility] Dr: Bouchra Snowden MD Copies to: Bouchra Snowden MD Ordering Provider: Bouchra Snowden MD Date of Service: 09/26/24 CT/CT soft tissue neck w con: new onset right sided neck/jaw pain/swelling CT soft tissue neck w con 09/26/2024 9:38 AM SIGNS AND SYMPTOMS: new onset right sided neck/jaw pain/swelling TECHNIQUE: Multidetector CT axial slices of the soft tissues of the neck were obtained with IV contrast. Sagittal and coronal reformats were reconstructed. CT was performed with one or more of the following dose reduction techniques: Automated exposure control, adjustment of the mA and/or kV according to patient size, or use of iterative reconstruction technique. COMPARISON: PET/CT 05/28/2024 FINDINGS: Postsurgical changes resection right submandibular gland.. No evidence of residual recurrent mass within the constraints this exam. There are surgical clips identified within the resection bed. With subcutaneous soft tissues soft tissues of the level of the platysma muscle, there is a curvilinear radiopaque foreign body 1.1 cm size unclear if this represents surgical clip. Please correlate with operative notes. Best seen coronal image 38 The nasopharynx, oropharynx, hypopharynx, glottic, and subglottic regions are unremarkable. Stable right thyroid nodule 9 mm. Otherwise, The parotid glands, left submandibular, and the thyroid gland are within normal limits. The carotid and jugular circulations are within normal limits. The visualized lung parenchyma shows no acute pathology. Multilevel degenerative changes cervical spine, greatest C5-6. CT/CT soft tissue neck w con IMPRESSION: Postsurgical changes status post resection of the submandibular gland mass. No definite findings of recurrence. Subcutaneous metallic density noted with a curvilinear shape. Please correlate with operative notes. Impression dictated by: Oskar Oconnor M.D. 09/26/2024 3:45 PM Dictation Location: [place] [address] Transcribed By: [facility] 09/26/24 1545 Dictated By: Oskar Oconnor MD 09/26/24 1533 Signed By: <Electronically signed by Oskar Oconnor MD in OV> 09/26/24 1545 ISTAT XRAY CRE Collected: 09/26/2024 9:17 AM Status: F Source: [facility] TYPE CODE TESTS RESULT OUT OF RANGE REFERENCE UNITS LAB ISCREAT ISTAT Creatinine Level 1.0 Normal 0.6-1.3 mg/dL Result Comment: ER/ESD physi ender is notified/shown all ISTAT results. Critical values may be confirmed by laboratory testing if deemed necessary by ER attending doctor. LAB ISTATGFRNR ISTAT GFR >60.0 Result Comment: PERFORMED BY : [place] [address] PATHOLOGIST GENERAL FARMER CINTHIA PIERRE M.D. Performed By: #### ISCRE ### # [address] MICROALB CREAT RATIO,U Collected: 08/19/2024 9:30 AM Status: F Source: [facility] TYPE CODE TESTS RESULT OUT OF RANGE REFERENCE UNITS LAB UMAT Microalbumin , Urine 1.6 Normal 0.0-1.8 mg/dL LAB UCREA Creatinine, Urine (Random) 124.00 mg/dL Result Comment: No reference range established LAB MACREATRATIO Microalbumin /Creatinine Ratio 12.9 Normal 0.0-30.0 mg/g Result Comment: 30-300 mg/g indicates an increased risk for diabetic nephropathy. Greater than 300 mg/g is consistent with clinical nephropathy. (Am. J. Kidney Disease 1995, 25:107) PERFORMED BY: [place] [address] PATHOLOGIST GENERAL FARMER CINTHIA PIERRE M.D. Performed By: #### URMACRE T #### [place] [id number] [facility] TELEPHONE ENCOUNTER Observed: 06/03/2024 10:41 AM Status: COMPLETED Source: [facility] [employer] [facility] Pt called and requested her surgical report and biopsy results be sent to her oncologist: Reports faxed to the below number. Dr.Timothy Cope at [facility] [phone] PET TUMOR INIT TX STRAT SB-MT Observed: 05/28/2024 12:51 PM Status: COMPLETED Source: [facility] EN[facility] Main [place] [id number] Nuclear Medicine Report Signed Patient: Fely Veliz I MR#: [id number] : 1960 Acct:[id number] Age/Sex: 64 / F ADM Date: 05/28/24 Loc: XT Room: Type: [facility] RCR Attending Dr: Claude Cope II, DO Copies to: Sam Em Jr, DO Timothy J Adamowicz, II, DO Ordering Provider: Claude Cope II, DO Date of Service: 05/28/24 [...] recommended. Impression dictated by: Sam Em Jr., D.OBrad05/28/2024 12:58 PM Dictation Location: [place] [address] Transcribed By: [facility] 05/28/24 1258 Dictated By: Sam Em Jr, DO 05/28/24 1251 Signed By: <Electronically signed by Sam Em Jr, DO in OV> 05/28/24 1258 GLUCOSE POCT GLUCOMETERS Collected: 05/28/2024 8:31 A M Status: F Source: [facility] TYPE CODE TESTS RESULT OUT OF RANGE REFERENCE UNITS LAB GLUPOC Glucose Poc Glucometers 183 mg/dL Result Comment: Random Gluco se Reference Range is dependent on time and content of last meal. Glucose of more than 200 mg/dL in a nonstressed, ambulatory subject supports the diagnosis of Diabetes Mellitus. PERFORMED BY: [address] [place] [address] PATHOLOGIST GENERAL FARMER LUIS M DESAI M.D. Performed By: #### GLULS ### # Point of Care testing , GLUCOSE POCT GLUCOMETERS Collected: 05/28/2024 8:11 A M Status: F Source: [facility] TYPE CODE TESTS RESULT OUT OF RANGE REFERENCE UNITS LAB GLUPOC Glucose Poc Glucometers 201 mg/dL Result Comment: Random Gluco se Reference Range is dependent on time and content of last meal. Glucose of more than 200 mg/dL in a nonstressed, ambulatory subject supports the diagnosis of Diabetes Mellitus. PERFORMED BY: [facility] [address] [facility] [place] [address] PATHOLOGIST GENERAL FARMER LUIS M DESAI M.D. Performed By: #### GLULS ### # Point of Care testing , GLUCOSE POCT GLUCOMETERS Collected: 05/28/2024 7:53 A M Status: F Source: [facility] TYPE CODE TESTS RESULT OUT OF RANGE REFERENCE UNITS LAB GLUPOC Glucose Poc Glucometers 201 mg/dL Result Comment: Random Gluco se Reference Range is dependent on time and content of last meal. Glucose of more than 200 mg/dL in a nonstressed, ambulatory subject supports the diagnosis of Diabetes Mellitus. PERFORMED BY: [facility] [address] [address] PATHOLOGIST GENERAL FARMER LUIS M DESAI M.D. Performed By: #### GLULS ### # Point of Care testing , PROGRESS NOTES Observed: 04/30/2024 9:53 AM Status: COMPLETED Source: [facility] [employer] [facility] CC: Chief Complaint Patient presents with Post-op Follow-up Post op follow up HPI 04/24/2024: Galindo is here for her first post-op after submandibular gland + lymph node excision. She'd started having pain and swelling a day ago; she's only 2 days post-op. Patient also had some swallowing trouble, but that seems to be better today. She had sent in a picture, and I wanted to evaluate in-person today. Interval Hx: Fely is here for second post-op visit after [...] LYMPHOMA (see comment, immunohistochemical stains and Ki-67) Assessment/Recommendations: Fely Veliz is a 63 year old female [...] I don't think that'll be needed, though. Electronically signed by Vahid Tripp scrabhishek for and in the presence of Dr. Dallin Gonzalez on 04/30/2024 at 9:53 AM All medical record entries made by the scribe were at my direction and personally dictated by me. I have reviewed and edited the record and confirm that the note above accurately reflects all work, treatment, procedures, and medical decision making performed by me. Dallin Gonzalez MD PROGRESS NOTES Observed: 04/30/2024 9:39 AM Status: COMPLETED Source: [facility] [employer] Patient was identified by slava barrientos and date of . Pharmacy updated Vital signs taken Patient in exam room ready for . [facility] MTA TELEPHONE ENCOUNTER Observed: 04/25/2024 12:45 PM Status: COMPLETED Source: [facility] [employer] I spoke with Fely. She's havi ng some thick, blood tinged secretions and wanted to make sure that was ok. She feels better than she did yesterday. Hasn't changed the packing yet but will let me know if there are any challenges. TELEPHONE ENCOUNTER Observed: 04/25/2024 12:35 PM Status: COMPLETED Source: [facility] [employer] [facility] Pt's calling , J Carlos curran. Pt is having drainage from incision site that he is concerned about. The drainage is red mixed with her saliva. There is no taste to drainage. No fever, chills or pain. Pt is keeping up with pain meds and antibiotic. He wants to make sure that this is normal. AEROBIC WOUND CULTURE Observed: 04/24/19 3:29 PM Status: F Source: [facility] [employer] [facility] C PYOG: Normal Oral marichuy isolated GRAM STAIN: 4+ Polymorphonuclear Leukocytes No Squamous Epithelial Cells seen 1+ Gram Positive Cocci Performed By: #### C PYOG ## ## [employer] [facility] [address] [facility] [place], [place] [phone] PATIENT INSTRUCTIONS Observed: 2:47 PM Status: COMPLETED Source: [facility] [employer] [facility] Please change strip gauze on ce per day: -Take pain medication 30 minutes [...] with gauze and tape if oozing/for comfort PROGRESS NOTES Observed: 04/24/2024 2:03 PM Status: COMPLETED Source: [facility] [employer] [facility] CC: Chief Complaint Patient presents with Post-op Follow-up Postoperative wound check HPI 04/09/2024: Pt presents today because she noticed a new mass in her neck recently. She reports it was near midline, over the head of the clavicle. It seems to have gone away over the last week or so. Was a little tender. No changes to the submandibular gland mass. Interval Hx: Galindo is here for her first post-op after [...] min Stress: No Stress Concern Present (04/06/2024) [employer] - Occupational Stress Questionnaire Feeling of Stress : Not at all Social Connections: Socially Integrated (04/06/2024) Social Connection and Isolation Panel [NHANES] Frequency of Communication with Friends and Family: More than three times a week Frequency of Social Gatherings with Friends and Family: Three times a week Attends [employer]: More than 4 times per year [...] nerves 2-12 intact and symmetric. Normal affect. Procedure: Drainage of neck abscess Anesthetic: 1% lidocaine with epinephrine Details: Ultrasound showed a pocket of fluid. I aspirated with an 18 gauge needle, and got 10cc of pus. I then opened her incision, drained the remainder of the abscess, and got another 15cc of purulent drainage. Packed with NuGauze. Assessment/Recommendations: Fely Veliz is a 63 year old female who presents today for: 1. Neck abscess - She needs to change packing daily. - We gave instructions and supplies for that. - Follow up in a week. - I prescribed Augmentin, and gave her pain medicine as well. - I'll put in a culture for her; if it's not sensitive to Augmentin, I'll change back to an antibiotic for her. - Still waiting on final path from the procedure. Electronically signed by Vahid Tripp scribing for and in the presence of Dr. Dallin Gonzalez on 04/24/2024 at 2:11 PM All medical record entries made by the scribe were at my direction and personally dictated by me. I have reviewed and edited the record and confirm that the note above accurately reflects all work, treatment, procedures, and medical decision making performed by me. Dallin Gonzalez MD TELEPHONE ENCOUNTER Observed: 04/24/2024 11:28 AM Status: COMPLETED Source: [facility] [email or web address] [facility] Patient to see Dr Sathya rodrigues in [place]. Ophelia Blue RN TELEPHONE ENCOUNTER Observed: 04/24/2024 11:24 AM Status: COMPLETED Source: [email or web address] Reached patient's daughter ( answered patient's phone), who confirms patient's identifiers. She is informed that Dr Gonzalez would like to see patient this afternoon to make sure she does not have a hematoma. She is given the address and confirms understanding. Ophelia Blue RN TELEPHONE ENCOUNTER Observed: 04/24/2024 10:37 AM Status: COMPLETED Source: [facility] [email or web address] Called pt and verified. Inci rahul red around black and blue down neck swollen on left side hard Hard to swallow.will send pictures to [facility] ANESTHESIA POSTPROCEDURE EVALUATION Observed: 04/22/2024 12:16 PM Status: COMPLETED Source: [employer] Anesthesia Postoperative Ass essment: Vital Signs (most recent): BP 148/70 Pulse [...] ANESTHESIA NOTABLE EVENTS: No notable events documented. ANESTHESIA TRANSFER OF CARE Observed: 04/22/2024 11:55 AM Status: COMPLETED Source: [email or web address] Patient taken to PACU. Ish matute was awake, comfortable, and stable on arrival. [...] None Lines, Drains, Airways Peripheral IV Access: 04/22/24 0857 20 gauge Right Hand (Active) Site Assessment WNL;Dressing intact 04/22/24 0902 Infusion Status Port #1 Capped;Patent;Positive blood return [...] the report was received. JOHN DEL TORO NOTE Observed: 04/22/2024 9:58 AM Status: COMPLETED Source: [email or web address] Attestation signed by Dallin Gonzalez MD at 04/22/2024 12:32 PM Attending Physician Attestation: Teaching Physician Note: I was present for the entirety of the procedure and performed the dave portions of the case as defined by me. I agree with the resident's medical decision making as documented in the resident's note. 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 He wound was copiously irrigated with saline and a Valsalva maneuver was performed. Bipolar cautery was used to obtain hemostasis. A small amount of fibular was placed in the surgical bed. The platysma was then closed in a running fashion and the deep dermal layers were approximated using 3-0 Vicryl suture. A running 5 0 fast gut suture was used to approximate the skin. The wound was covered in bacitracin. This completed the procedure. The patient was then turned back over to the anesthesia team. Patient was awakened, extubated and transferred to the PACU in stable condition. Dr. Gonzalez was present for the critical portions of the procedure. 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] Procedures: Surgical CPTs Procedures EXCISION, SUBMANDIBULAR (SUBMAXILLARY) GLAND BIOPSY/EXCISION, LYMPH NODE(S); OPEN, DEEP CERVICAL NODE(S) No data filed Surgeon(s): Surgeon(s): Dallin Gonzalez MD Staff: Scrub: Laura Lee CST Bricklayer Nurse: Melissa Cade RN Physician Assistant Certified: Chriss Brown MD Anesthesia: General Anesthesiologist: Dario Jones MD CAA: John Del Toro Specimen(s): ID Type Source Tests Collected by Time Destination 1 : Right Tissue Submandibular Gland SPECIMEN FOR SURGICAL PATH Dallin Gonzalez MD 04/22/2024 1033 2 : right LYMPHOMA PROTOCOL Tissue Submandibular Gland SPECIMEN FOR SURGICAL PATH Dallin Gonzalez MD 04/22/2024 1114 Estimated Blood Loss: 5-10 cc Lines/Drains: Peripheral IV Access: 04/22/24856 20 gauge Right [...] by Dallin Gonzalez MD 04/22/2024 11:24 AM BLOOD ATTESTATION Observed: 04/22/2024 8:59 AM Status: COMPLETED Source: [employer] Blood Attestation: ATTESTATION OF INFORMED CONSENT FOR BLOOD: The transfusion of blood and/or blood components were discussed with the patient and/or legal metals sales representative. The risks, benefits and alternatives were reviewed. Questions regarding blood transfusions were answered. The patient /or the patient's legal metals sales representative agree with the plan for transfusion of blood and/or blood components. ANESTHESIA PREPROCEDURE EVALUATION Observed: 04/22/2024 8:52 AM Status: COMPLETED Source: [email or web address] ASA: 3 No history of anesthetic complications NPO status: Greater than 8 hours Past Medical History and Review of Systems Pulmonary (+) sleep apnea (-) non-smoker Dental Endo (+) obesity Comment: Elevated blood sugars. 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 [facility] , Sodium 141 136-145 mmol/L Potassium [...] Performing Lab: see note ML - [facility] LB T4 Reviewed date:01/26/2024 03:35:27 PM Interpretation: Performing Lab: Notes/Report: [facility] , T4 Thyroxine 8.60 4.80-13.90 ug/dL Performing Lab: see note ML - [facility] LB TSH Reviewed date:01/26/2024 03:35:27 PM Interpretation: Performing Lab: Notes/Report: [facility] Physical Exam Airway Mallampati: III TM [...] were discussed with the patient and/or legal metals sales representative. The risks, benefits and alternatives were reviewed. Questions regarding anesthesia were answered. Patient and/or legal metals sales representative knows such anesthetics and procedures may be performed by Resident physicians, Certified Anesthesiologist Assistants, or Certified Nurse Anesthetists under the supervision of a physician. The patient /or the patient's legal metals sales representative agree with the plan for anesthesia. MHPATFORM INTERVAL H AND P NOTE Observed: 04/22/19 8:37 AM Status: ACTIVE Source: [email or web address] H AND P reviewed. The patien t was examined and there are no changes to the H AND P. Medications, allergies, and pertinent laboratory and diagnostic tests were also reviewed at this time. Surgery still indicated. LEUKEMIA/LYMPHOMA PANEL FOR TISSUE/FLUID ORDERABLE Observed: 04/21/2024 10:33 AM Status: F Source: [employer] Flow Cytometry Report Case: [id number] Authorizing Provider: Dallin Gonzalez MD Collected: 04/21/2024 1033 Ordering Location: [facility] OR Received: 04/22/2024 1211 Pathologist: Krystin Tidwell MD Specimen: Tissue, Submandibular gland *This test was developed and its performance characteristics determined by the Flow Cytometry Laboratory at [facility]. It has not been cleared or approved by the U.S. Food and Drug Administration. The FDA has determined that such approval is not necessary. [id number]/[id number]G0Aqh7X fNzkz HZY3Cav2ErDnWdpmE8BqKUDnd82HOIQiQWJ7RzXwQQKmCXGbEgL2BiBuSFLqIQBgJV9Qa3DXCCYxVZN1 MjAyN RIvTOQbDhR7BtMeTRJbRLUaLC7GebQvnD6nQFAcvEHxX0nzuQCeanWKs9Kxm0BuaYolxfqGWzKoKp9PX mVuZG 2mul3JEOKvOF0sjh2GLYN8CI9TxDh7BJBaM5MpQDXbRGPwz9YgFR9ICY8phRrnWjA3Ky4+LWwvMXX9nl VhbQ0 KZWGfNRgmS5mZ/16g/kFok2FEmZ97r91HoyC7bOBU6shf5FXLfq/W4uUIq1iOHuw1/gVoa6QLDZ+YWip npI0/ 9McCoxUFeO2rGEWd//6wzgXzoV9vb39+pUQdokDz6k+T0QDhUY0e/6ePwVqOf1LnYqT/+dy3ouqV3Z53 oZQnB p+KzrEIVBKLQ+kFxf+JSdanlkQt4xBKpKyNxBxNF0d0qqV7qNgX+TpZIzt/fXVyPei//mUgLi/E1cng7 eX7yz e/pyOmBtuaKTLMQP1GpbTPbU9MKjghq3Es60dmb4KqjKtai4qY2mZakjmIaFTu+XLyOXOILfZLbFGSlN jOptn zgAbRMhgn0w4aMXGrtcXbPy/kcwFbDx2spN2r+GXr429nWcWImt/X4I9dk+5cNfRMi5NnXCKYU/p8eeo QtIwj uebKyTQ/EG/SR/HOOQY/zHvQGJTBoOoywzZtzd4V5G6MrRXx3BQSf6gbnYyrR3DWdKBR0uLwTwTWS6Hq Ru38J Hhe8hx1w6W81OYxtrU86EgOfuPlH6inSPTDhQE3hjdS5aHC2hZe4wSwERard8lp518dbmTU9d0xrSkDv dNL6m Pko0MWQZc4MNFp3FKXgXCpto9oGpdTAbSSDXRWHBb5ZdYnxwImcGg1jL/J2Mk4oPJyI3EO/X3LR61aGU bpVCy z1cM0//bnI8GXh9E1vZYNHmnNDeP8f+GCkYWUqkVuD9VjoZ5QoCDNQJrS27MPYC0gkMFDcitcUR87npC ZOucU unr7ncHmWBAADh5qW22LDTi4nYlG4k7tTLUI/GDN/PcUK2M+B2GZ8Usj/MA14mJkRsBiKX2w1l61Knjv hXtEO hFB/Xpiy+3oh8ySXXP7HhW0piElsBsPNonum9p+cRTq/5gpt0On2wKErq82a5F0dWoO5e4mVHC2p4g0c 9Rg2s zp+ennAh4idP/JSaEHKzpBhiz9jf+uZHTG3Vn/osnmvzrHkz2fIBXZgoSarkCzhDyq7N7QGxdX8XI2Nh xP5+n 7PNdm43f0GPjjyFHFYQszGGw/C0H2RIjBEN1jwAZu5FB9sOM8G9oT24J9WRp7igPymMJ+Q50u0LjsIx3 o6A6C SK+mBqpgtApAFHKJU80GTcxXA9Krgc6eE+b2FWk8bQJHAD8MUdlvaXBAuw6QLK/ouYBGpppYvDrl6vTi 7QWyC rqniy/t9OvStzyPBQ+sbSdMais/6GelQXlHNa3bv06bTjgI09QqRtQ7rCAW7iECsQ0LV9HAJMoqklY8P JGjjn LdASsJp8fsXjOa7A9uMynLGoUTtearcYVxNZ4TvxKAM01/bTF4d5tWR45621EBDAdo2eeyQzRrgSTukZ mES8d BazODoCSHeLGHR1VDGg7yRUBoy4IpkMEbGmicnq9eq+G4njTo8EAqJpOgKa0Dx1Qg9I6hXjd4nJEcVDv LqVgc z5I+ZsjnvbO1frvS+A3ztpUwgmuIeoDN9hAxRs919Ylyw5N6iem0Rk5K2gooJlzIN4N+erNAW5OfYWki qUPax UnTRtOJVTJcApy81pgbLmDd6WRy2QFPqDyqXYzPUBzvd1qQ8Sprrgfb419wIEVyNWwHuqM6On0/5TN0B tBxQG lMQjX55q7FTwdFut4Q7D4Jrq9jzN10t9E3pG/2SZ01IjZEiSmv27NWxhW0SZu9yPGNrmXqqq83GaOSJ7 gaczA YXq48RxG4DaoJK9tb3SApvcPs28gy3lnkIUsg0+D0QTRcjZWVlEGg9IL1JEVLL9duyMiOpTHO15yHnaG bw9I9 mkXC/G5qpeaHjafcz4WCCOon8qBlZetYCXIEXXN0xPCPuRNKaFaaXlVlhbTxRPZT6x7SJmbP9f2OIb9G xa4A4 WXBRb3aWBV4yTT8Xw0n1RBdS3ameEp7G1cO+OB/D4gTwwpEF2mEctG5djxck/AIIvgPQcw2puDoQ5ZIM sHCNL GpY0KPyg9l6SNrB6zBiNJv/6Ymi/q0t5ngp62lhvYSM2BTvPzC0xE1xqGSsO4ean6qN3V9FEm0G5IErO PQSBU HmYKRdunFpASdRtinji2jtAcIaQ0tTY4p4DQVww5+RmI1BaWBiQowaAWp3PSJgRrdbokAywmgQUvkt5Y SjmVB SNAsJAYL12A0CvrllHs9z93IVHWmHRcUSo4GXqOsn2XelV+j33hx8pLLBFCkhWHkwRYtPAAUSAC3kkk1 ifQ9E iFGAZEiSuPEqiPmjFNMpM7FvzUlIzHQQY71k+DBFZcsU9MxvMPaRHyKlYieTWUwIFBLOHE7p4FqGxJ0M YYrZX rLcmBNZADCwgv9JuCOazXqVslsoGmFsYSLzaAi7FiPpXHiqIuAGfvZpsyjEgdfpyLsnMqs36qZp/Zazk hDezf 4GObhhIOOa0HsYPYbO50rYCQGPchEWpbtXEUhCod/MIZA7KR1aWL2TRYweDAcjWS2IcmsWUmT/M5De1h 34y60 dxegv/sI9h4I2QsC2u6tLnv6giGHWAcyY6L2M9SNFECOlJHI5fvIB05aREF9oyfZ89qtD8cbevVgAM00 /ZcKb lup+Q1IaEF5JhzGYS7nznHk+7mKROZIJ6FVMx7lDXybLGH1tc11rKS9C3TFl0bx5Kxf8e1oZ2XjnCiLh DS1sw W8V4WElnlws6k65HQWaWin+xwaxk5dz2dljFziBJUQUzLMOlBwGzrjYHJkz8OWZvsKGf16fO4pIkVd1V UJrmO f1oZD565NMYao45enakPVmUe6Vr4uDPrKPqpg9VGKt3hO1Ot+ZvPPCLKDay6R78TucUkzpQPBI3zhtNB 2qLOy utWz+ON2H6us0cb/g9NLHG1g37nxDtNanvxfdGb0n/dKHINCWhhmWW36mp6VMLMgHVJyFaIhUGKlTtVt b7xw5 lBSKGLEMRwMheLZYSM6QNIrArXAl5unbSMuRQhFMuydiMyloXpS/Df7wtZEOwe2gCtcioCfqPRX1Y0ot Lf9nb H0Is/ET23fsN8+fV948ULJQsYx1Xy2mclstkPSUqY0RUn2NHvyy9D/zPFSQk+LPuK78qIPvfXutSBO/l ojU4H Tm9nX7L+gi3GUzDD2Jwbe9la83zW2jark09GvbBr+B513/51WNZAwpJeVvb9TOGVJbjMh8P87PPgE8IB BfYDc lTfxKVptu3w6ksrdf7VuDb98yWtC9+nwLhuJf/ROF3m+zN5fB3x0p0pK3Crez09Y6W738Utbv49uKzs5 /Plnc Xp+uaBErc25VpA7OJW+hpv5qc98aY2lGnRuRClJjlYtyTsQ1ejYsn2BmKquSnKibHjmY2QZoGBiTdDib wloZ4 BSOSs6R2v1DDFcPpj0I4yfIBr41LiLL+kP4A4ylkSWJpL1wndn58intpepUMECbNiyFcb1yEHsD9wfhl v75lH 41LgZ1OkLVE39MCo5Sjm1mHjq6v15X8aJ9xeE0QIZU4XEkyCFa439s/5psDD9Vpv04/nM4GXPt4TFjvu 0puLG AfANgLPCRSRadgB/xD1SoScD9fZI1Z4bY4w0XlH2NlCe+kmiUjF8Rd1a1Z4DTQkskperkvg+kCUqTtbI qhZD9 mED5uv+pg/+NC31W0F7lCNHZvGnMGG3lsOkdT6SHB6hg7ZzOCx1BSGnb4TqLHvsTXl9DLsrZBNmB5R2n GUvUG LeLB1FAZFzBW8DDWDcshBnMoOtZVFZMmIjTGXzCtDas7XnV4QcKMQsMGJGZDbvRUFhZ63mSFsyAk88CR swIDA dEnRkRAe3Rl0YAgHqZHNiY23wtSYflIKmEWUqTYSBObYrDWLmU8CnbKOcWFmzJ5RcM5JeAI1ucHHkUE7 jeSAv B0FbQ5MgvpirHGKZEcKePFGxOQjmEBJzVsPdKEvzOIX+Bp9UUVJ+Ot6DJR1re9CtAYe0UFOfr7QaVTmo IDw8L 6TkqPXzipXhMcgspUPMJCOuLLBlG5xktjp9iLZ1PgC+Ho3FYSCdmGXhCI2WPlwJaCFxr3riHSgxR+0/n MtOah d1uQY6aphAs3mLDVDiSqz0cEAYaEG6aSgDge+zwGQKskUVrlA47MS1sL2PXGC+trU43NAHxZ8rUQfino KPH2C hYjOnuH9nTA6vKSaSLyhuAf0zuivXQZzUPRfX5yvfTsQmhjTvJqsGGqNMgc2o//10fdwxN1qfzo+h0+v 6cCSS Dmg3KJec0R8WqxAQDCWgqQ1CwxQCeCDNtxQxNQwC+Zv0T6g7u9k+AI3UYoLe/IUMLnK4c/X64+hrPOx/ iWE0g PYU567+j+6+NgCV6m3QeeNjOw4iIiiReqQuorBQt6NPnF+iV65ExAvdBs9BM1wcMa7PFA+7OIdSBK3l6 WjdpX 6Sf5AvNjPwibZFTXLtEPabvATiCAxSeS/v9SvMOGhNEDctuqDB2TFZeHGy3Tmpbv8d3c+aupMbk6/e7u tBnps plJ96I36VclcOYGp3W3DWe5LnkgsB0u7jMfEZkDkiR3EydY2ARZAODaCAgF5e8EUoivAMYC8EbBq5cmJ fpKdy J7mAE8vl9GAZ4ibbB6Xjb7SwV7/9Nds4HGwZZN/JLV2t152ifl9kmOxq7Jr8naZcWTVj7T/t6LiVAbMJ FmX1R MKZMZdAr42BaayuGj98Ab6T8zgR6BvL5zrKNpIPi+N2RIu9hap48PCl+fx4bR7mUdqZOuc4kJ/xr9+C/ nU78c J/xVmLvQ0PKH9fs3VsAIOqMEqicuYhHogQJfhxAWKqTzaFBdCaEYzKXbSmSWDcIZgtFM5CGSclFXvsNI AgL1B kyrJodIZyARIyOs5LFVRuJS1NXLBgqFJeSYRtLxDwHPPSMsSeZLQxVUCxaHJTh2iwLpQuVMM9WECcDpg yXQ0K DEAsUA6Bh189LK86iiX3MBCaTf3SOKJoCI7Aeo38hSF6CNBqTlFiUNPxdbOaDMCpqyM5WC5LFyPlMWW7 aWNlU giFBS3WMEBfcOBzZP4NKWOwgMWjJX1+DQogID4+DQplbmRvYmoNCjggMCBvYmoNCiAgPDwvRmlsdGVyI C9GbG M0TCMtC86iZXAlWHAxB7ZkZLcxHR0+EWlfCQS4pvTdyF9VOMCsH94w8cNLqc+0/+NyO8ff7kVQ9dyiEY HSTWV OrBy71VJjFIFjX1xLEq0lZzoEwn1KyXtE2pTddG/4/P094k9vCjz/o7XwP2PWtLc96TDY5YB+ffQ4vFp 7s/3Q VtsExgHgNd1dzvFKY329zpE576rT471z/bFSSP5sEmgHuDEGkYsvbKH6xl5Bzjv3cgvqakB027mzIUCU Yy6uh y6+Cn8RsehgnUpsoZsEKpNeHnoxDQe059/xPqUw3Yxe+f4RrOxhNwVT0FqwiOJIyv6Vulguv8ES08xLu wsYtc CW9hGjx5MBN4owPxSGC+PryLMikuEYY8r6eAl4SxVQirLeVhfSqH0IlrClqNHVfAL1iJHeeLlnTzAtQv PWWcT S9NIqFI7oEC/ISNVl5sLBtmYVzFEHO8G0Zvn0eS+by9umGFCM/ZJKLqhMnhb772FD8qPgrOedHLjDHvw zSyeL h2yP0HQ+uzgvqfcN2bSUu6IuHjyS9Ov+fWwozSzXT9IaLh4IRlslFoNNQR3Y2qDS8k/RMtQl6w28r/SO 3tF/h mniXcTUnfvlA9S0dKdEYkumu+NCzgre2EbhKzZ47NHNwVZTrpnRIfLLKTwIiJAIStS1s0VESI1oDeoMr IEgRk 5XEqkEttsQl2wmdywMGTRYlfYsCT14p6wrmZ0XEhBPUfXIYZkqouUMR+aaQDY4BPsmiND9HMe0aQU1L+ 8PZFE jTnhc/IRuyGJTbrI9mxYPaNqyNk7iOnHsZ5EC4AT8dko80ldHfmwSIwLQ3io3i2r4HoKXEelST58USKI vacJo xdndh61t8qo5H9+lmnpXtdMTSoXe0Dy3YW8aE5gYedSK07VbVV49POz18FpbxQ/NkvxyYQeQpQBEAB2c 9bE6o Va0zz9KoJtzYEMEFJFlYsUg4navfmlS7+FU35MBejQ9Gzwpuegy5D3RxUmyGeRhy2kDyuEW+kxboOVQ1 e52qA u55cMuLzFUwK1SJPnwgqyNQEpdik1hENiowmsoGTgkwho6FyPSyFBVS0kZdo82tl7+00SZ9uhe4qMpcO cSt3A Bk7/dq6zT2ZW0p6KTvLnCO5DOO8/fP6XjCywe/osWIgMgOAZ2fgOkvO0EAE7hf1SlWZh7JXXsn6XqKGq gIDw8 DBtaGGTuU8C5zSGfKSYcXM4RVBSoYB6KXZDnpcHlIfNqADOZNgCtFZDwVjQwl5EkL5VoTQObWWLBKMyz ICAgL 66rAKhrEw40MWxdQEXqSvQwYEs9Ga8KFdDlQZZxQ45tnESbzLFmZPLeTJBDEgXwTOXpV1OhsUCbMWcoQ 1MgL1 RsIL9shURuTG4iuGAwP4GxE8GwujdmCHCMKnUwHRHmZEenDFYyNwTxKKrmYUO+Pj6KIJU+An6ZRP9um5 JqDQo oGFAuBL2mvf4SGIAlENm5ALL5CQXzOfx0PTZ3HGXcXARuREP0BNG0ZfL0YXgxVdO0BDU1GUBsCzJxSzK zIDM4 FDV1HLJxBoc6EHTzKgDwXfhfTda5FJD0SoZ8BDOwQYN8IGU6UfM1QDHcEGP7BHA5TkF4CRDrGVP7BKR3 NiAyN dwjKdk1NJC8FBSRZeLwSJq6AUP1EZL6TRWaKIZyFLU4RlpkEsR6KSbzCaA2UiTcMcS4GRLsBCG7HhobS zIyID D9XXN8MIWaUzP6UZY7ZpK2RgFhMcUxWDn3OPK2AdqlWfj6PQeiUqY3UbeiUuLuPMnyAiK7LjtnEQW6BW Y2NyA 8WmbiPtWqKR8YHWFoHfqtJjg2UTV7NUN9LgenPYW9OBOlHhW7NPVuVGD7WWVqLOM9ASKiNMZ2TRE8JUS 1NTYg EEV3NWMcXfTcXdMnRMRqLPLvIpL1QfBeSZA3XHJ4LiS6HUWzRWE8AYFsUrJ6SPPrQts0UCN6HzV8NLFs NzIyI RLvVYDFReLbYZNhCQOhBZTzTwOsSuUxLMZtPPM8WOHzKdMvSBf7TTF6GPBmLrHfBTb6MKK8SWHtKlTiG Dc1MC O6KWTlMxBnEHf5EWW5DIPfImWmKPn1CFV1DIWqOzNcPHi1DXL7FJWxQvGkWQv0BRT2MXKsYnNmMTn9SX A3NTA pMUjgGEr2WEV9YUXcWySjSYz5DOM9RFZhDlIaEAd1DNF8EJCmPdRuOZS5FMGaMeCkBQM4ZBL6AqX1NZK gNTU2 QFT1TJS7PYEvByVoEVyhUxGqSvZnXZN6EWS8HPWrOwRpZzO3BRM5ClP2UXMeTEW9WKSjXgQsIhGwOdPn IA0KI FU6UoKdLNF6HRTgGpTlQfXuHeNyZHB1NRK6IXYnSIH2KBylRTC4RpSoYzJmMES3NkS3LysnWwI3YLL1M yA2Nj rdLpD7YPOkLHOcUxGeTXR2KpL9LyzdCbG1ETS2TjXzKrcfRrn6YCK6BRHiLxpjUeAkQQjrZxC9DwemOV ogIDc 5BBV1ErvpNtr4IDm6YZB3ZGIaNef6HJihByQ5OuBmVqLvLAemOqW5UzgyOyF7WTBvSXJ1ZTGnPGF7FWO 1NiA1 JKBeFXR6XFB5WfL7TYhsXIAaJQN0StT1PUYuWZD6EHV0XpDeYcvtEpp9GGP4SCZuCrquGIF7TB7ANUO5 NTYgN SW1REI8XsH9RXFzFXJ9XDQ0JyP3NFeoWlFzCST1BtJ3KWIpDAO2WDA3IzB2HATtKCP5POSpKJQqIY3QZ W5kb2 QsLAedDZFaMJ1sul4PNJY6MY8KKTYkPQ1FeFZcX2GqgqDHDVWyfanvdN6cCWlhMYQqU9FuewETVK9sE0 FyaWF pFXjnBSYtI9SvC3DoaER3QWAnP5NqOBPzS0o7QAmpTZ0XOEFeBT85TR5dSYJYQkYzOGLfAlswR0HbBbE NCiAg VEYiYu1kzDXUr8clBeAvJDKlClDrCSA5TEivER8PZpMfFXFoKDOymInxCM4wxUQcEP5TiORhPfGtCAqa ID4+D NnkjnBjTocZLzAuAPKtr3CaEVuyHOc8FJajBIGsG8I4lEXfKe9bwY7VvYJ9oJCnA1PvrLLMzDXcB1Fij 2VGb2 29C2TguZYoJ6FqB37rcH8fU7qqvpHin6jJteYfGPtlQx1ENHBcKI2JoEMukBSiGCXgHyJyVBWkoDLuFU IgMjU 4DJxiBRDfZ6vaWTMwycHfDZIxWTSBEoVhVJFhFx2lcNMig0GxhOZ0b5RuJDQrCBHMWVoyVF4+DQplbmR vYmoN AcVaRUDha1PeVFyzYTgrHeWaMIv8ZMCdDjmxCsBiNAH4NAF7GDXgREW1CGm8BCK8ZbTdGzY4HTOuNoQw MzMgM ts3ORD5WDYtRlhrHkOyRVX4TGLlNizeNWV7FFG8FnW0TLJwXGG0XOF2VzB0PBMlPDP2YDH2JyR1WETdZ TU2ID GwVxCyTcMaYCh9NQ5YKWW7EWFdGMe5OVKmXIM8QtRyKfQgSSvhOwE1NmOiPcTeXML1SjP3AFNbFey4UU cyMiA oLsjdNFC9CApuAbT1LLDfPSAwDYuaPbX5PevbRgE3UXl9YQH1HxHvYiR7CSYuEPV4LtJjEnV8TIe5GSI 2Njcg UkB6OBAjHNYPZvCdEzJrKMI1QIXtTaTtFTk4BRE9FrMbVpWgMMU1NFXmXAH8EAVyPwZrDGW3HtNdYlGf NjExI UXvQFWvOlddMun1FCO2ZgKnQawlHDf6RGDsXOH8FMTcIqFbPDBnHDHaBUyiDWK0HGEiHcU2JCNhRPT5S Dc3OC D5FSOyRShcGGR7NkC3QTUaWlw4VOO2KLXePFtfFYl6YKi9ZNP0SORxRvKvVPe0MEI0JTTmJbHzTXf9HU A3NTA qWeLnHDw8EDN3XEObIvZtAXn3NMT8QOVbWfLiDXv3ZCN4WDOzKbUePAa8ONZ1AKHuKyAoGWj5CUJ5NOL gNzUw YZ0LMFL7PVLvKaTzBMn6SGO1HASmTvTdXSp2PKZ9MWQmGgTuCNv8RZAdCcaoOoGgRBP7NwE7BXGoLAJ3 IDU1N sClMQCaMYQ2XWQdFpH4WzfoUqodIIU5QmJ3QPKqNoKiFCbmGmM7NUZrRSLfAME6EXBmEvVbYqDaGTBqB Carina GnWKs2JLD9NnGjEkSeRhTcOJTzXtBgNpFcIUJ1FRwjWUC6EjXsAMZ6LJWwXNS1EdGbIeWlTPrhTlY5Ov IgNzI yETraGrLkCAReTMwtNlP2SdlxFeV9PLD2ZuC0XozrDay8ROM6MBCtQsqbUbd3NBhaLgT5ZoEaUxg4QF2 KICA3 JzkmCgb5SWf7RPS2OssyFRc5YMp3ANJ1NlLfToAdLIkvGrM5FtXeZeQ7GOY9YuN4EXTeGBA6FER8TmE6 NTYgN ZF3KCH8TgQ6FBOcPQt0QGM7FhX0LCCvMOF0RNI9BqD8RWLwMjo3WDK9BDZwXczeDmj4WRBrRQGFWoZhP jExID EoGCI0RWYsHtKyEILqWXC9CYBzLOU9VGBaHFL9WMWmDaUzPHBbQQE5APHyABK8KEAnRNQ1UGMwWNTIJm VuZG9 sqo6QOUKeRQJsEfpONsRmEBdKJaAyLYZxBOhgZK7Bi871XKAgM0NooJYxcu4UHIUdDG4So201ZwWvZA2 Bcmlh lQyUc8mvFTdaQSScW1KbB9XqmAT1ELXdQ5FaHQAoI6p9HUgfJJ6CYLOnJT55FZ2yBTFWFdNpPLBxUzeb Z3MgM nFWFlHrDDNzId5biOZSq6cyDfFuKEYtHzXuEHBxBEgjSE8SFzOkCZJvQYImwJfaWO2kdQYhDT2AyLVcW iAwDQ ogID4+MPjcfxSeKduLWqR4ZAWtv2ChZNeyPTt2AQneECPaG3E3wOIaJq9lwH5QsBY0zBQbB6JsvEOIyJ BlL0J ik9PDu016D3EajVFrJQCzfFEpXZ8gu0UczbksQ4rkIQ3wdUCoC67hsB9hQGqeQCSfR1TehwA3I8ypqzA zMC9M BRU7O3bpcrKkAVQVZeGpAYUxG6vgvNinOSFrKWBeEv1HDSDkMI1Lj654SQGrJ9VarNNqhqSpEQUfRVTW CiAgP o0HWmKnWG8vbz3AZZLqGPYzFksAJqFlAhZ4ADVeApOwPPF9WOUnDjJnGEs1QGB4EeW4EIOfDEc7BEtdZ iAyMz ymGoXsWMPbTqJmKAakHJt7XUA1YVKfLxDqTew2ESU3JJU4CMLxUGO7PNS0OsR1WHCoOOU7EGF6PpR5XY YgNTU 0ULX4CqN7JPYsMdEzWVAgNdK3URVgPAzkQRU0HXN0GGAqMdAsGWy5RWV1BsKfCeReLWeiNhX9DeMgLjG 3IDYx KFH4LaryZfSwFFG3GKR5RONbUqFxUWWeQQD0CgFkNiXuMQd3KUA7ZvgjGfp8YFetIfR0CpbhFcLwQCdw MiA2N hulAHG4URO6BnS7SqrpThZkUF1DOTOuUeNtCto0FNGeWhB4QPIsYBX5UUQdFvA0VXGtHmPoANZ5HhN9S TEgNT F7XABkQoE8QRIbKfEaTJJ4EMGkOqxgZHJ0ZDV5APM9EHsePmAnHWKpSHH2VOCwNtRqIYS1SVR8UMTqFs MzIDY tVKL3AHCzMhh5WGY2RhCFFjZtPIP7JSXxKDVpAHqeOciiRDY4TUN9MPArGvDcLBa0WTU8GYGtNkLfLLg 1MCA3 CRUrYlCfPLv4BAM5LQQvRkBkDUs3DSQ3CFAuKhHfSCj0YQO8CGAoLsOiQQx7ELY9VIXfRhOhNZi0OLN8 NTAgN mDnOAj1GNQ4RPRgFIjwOBn7JRR0QXJtRqSuLWl0SFB5QNVrMuRwOCa9SJO5AHCvMjScITY9VZSfAzCwW TU2ID X9KwG3XSAqUZO5VCH8NFG7OJEgDjWmVFofGpLlKxDtWSY4LCF2WQGfHlNtVlU5JEL4XtI2RJAdDCF0NW MzMyA eClThPeDbTB4ECIU7NcBqPYD4PNGbOmEsGmStPqLwLIW8LMJ3DYGnGBH5TXffGGP4MwKnZgMuBZiuHdI 3MjIg BaKqQAmwYtE3PzAtTnHnQJDqTSBqYvFjIHH1MjZ1SycuVlW6RUY1TaNtPouuPav3MZP4TSIrBhvtYgWv IDcyM vC3GsjgISnyUDl7MYT1CayjDjy0XKa3TXY6HZHqHqk8QRgiRrQ7ToGoDjYyQAtpErY8TecfKjL7VYRqE SA1NT RkIIH4GYZ8BaI2GUYuFRB9XBM3WqI7WDvoTTB2BVT0YxB7SSAvJTD4QYS0VsZtUsdnUxn8CBA6VXClZp ggNjE zLS8GNYR7NNTiUoKxBBVjGSC3GQCvHfNcNMAiIFV2NPyrWpDwJIBlEUL8MTTqBiSdHBRsZAG3TCNjFlY xIDU1 WyBwTF1VOI7th6YwLTwgVlLsSR6abg3TEKW0UT8HEDHmVL7TiYFyX4YnsjKTLAXhrjwmeF3hQDjnKSIp L0Zvb oQMEV2hB3IxfRObBADadSCPTxMaQBBaSAEeKY84FJqbNP2PZINHDIvqcWPaBUX5M6Ksu9ZvrqRqWAXyI g0KIC VhBV5XaPRqnyDeJz9BHAWoPB3Sh572YlTagKYsBRMeSvYeRKVlQKDoORE4ZX7IZOJjYQ6AhIPrlNVMtj dsZSA bN6G2XU5VCSVUKvRqWj0WOfBxJL9pre9AYJeiGTWjPvvJIwYfRBrVUzNmJWUhLOqpAI7Vx551I0Q5TsG 5cGUv CAX3LJM2lNTaBfHcZYZijlVbBSCsIAvlHz5yFU4IkpNePTsqAd4YiY1QdsSrUG0fe1NwqugFJwHgQWVl Rmlyc 3FIxZYpSVTxW5mlf0BXmVBpNEU9XY1IVRSbTO1ZdGK1uCBmSWYfPPJEZOtnEYErW5WrblWJTYGilvmsx G9yID U0SDYySr4EUBJ+Ye2PVQ7yf8YpITxlJWDvRY8awr7MANGrXZj9AKQ3EVZhHxm6HZI3WKVyODPwIJS5BM U1NiA 3BBtqWrQ6JMZ4JMIqVgOfHaHhMNS2QTG0FFZcNea5UHIvUjNvJrjxRra9MUH2WiU2HHNiDIP0VJY1JeG 1NTYg ZCQ4TMF4EnN2NFMuHJJ1FBG5LwRxXxigFfp7QPD2QJSQWoJeRFi1CTB4QHH4FWUbMSWoHQL4KxoqJfD5 IDcyM sB1TsYuKxH3RMHjLJC0QbjuIiNhFJC0THW7ZIYlUpY3EUH9LdA5IxSbFaQwQTp6CHI3QjzhCst7PYuuN iA2Nj cwJpFvOWcfXmC0TflpMEJ0ZRG7KmY7ZsbvUrFePK6CSQFsFxcmRyd9TLS7ADA0SsajKFJ3WROaGlP4KB YgNTU 2TYSiMXU8CQJcRDE6FQL5NZA6HHMxDNW1VWKaTqWrHoXlIFWeXIWgKnV8ZpOuYMA4KDY4XqH4OFYdRBY 2IDMz RqH7KKPeSwm5LQT1GzK3ECPpFzOmAIAxCPJMIvBkADWjONTwCOXaNhHgOfQtRFHaGPQ4ONQqDvTzTTz8 MCA3N TIkCzKeVHz6UEZ2CWLlDzQsQVk1MNX6MYIzFbXqZXo6XPN7VDHaTtZzRDk6JJO3RYZoDhCePWa7VIY5W TAgNz PzKVq0PNX1TVYoZnHwQNz8WZL0ACCaWAskXVu1KND5BLMnFoLwJTh2SYX7KAFlCxYiAEr4EIU9EPZgPd UwIDI 1TQBeKoBvROC3BTP0MiP8HYXpTGZ8YIR6UAE9MPJjSaMoEZmyKuXbKqEhEUO3BAK3ECSbGxJxZwA6WJH 1MiA0 HFBtFXC4ZNQlLzNcMxPsFhOjVR6QXTJ5MyHrVQS8JXImQuHvZhJlSnGjPXH2ERO4RHYeGYC0HKsbRLK4 MzQgN dCuHES9StG1QtrlYoS0FPT7GvV9RfeqFpS6JCSwODMhIvOfQHZ5ArL4TawqZeZ3TEK8SvKrQhldXnn3U DI3OC CeBseeDyLpBXjjAeD2VccbHTvyPOj7BNS0LtztXis7ZAj5VLX2QIXaIvc6MHhkKvC3HdWnVoWoNAhwYz A2Njc mSfA2EUEgTBS2QBIlTNB2RDE0WpA4DDNwLGO2LUA7GaS8MLbyPCNnPQM1OxW5WKMeCSJ8LLQ0FdLbFqh gMjc4 YAK6MCApFlweSVV3KY0NTCW9PLAwMDI6GWD8HeD6PAUiXEW6DMX5PaA7YBspDlBnBHG6OxR0ZOHcYUR5 IDU1N bX6AMDbSAX1XCZqUERaDZ1QRP1lq3QuOGcdWVDlNR8ils7IQWT7ZQ6WULOzCQ8DkBKmT3XowrMDAWVlh mlwdG 5dLGgfYUSeP5PueaDMSD5xS6IqjTRnBCjeTFNvW2OsM5KztCM9EMPcD9KuURTuY6u2QAmoHM4EUREhIG 50IC0 bCQCJDbTaHAWiJnrcI7AmMbFDEgWnGUQsEw3fcJRSf6avNcMhCWDxCuUsPRS8VEirLQ2FSlSzIRIxCYS hbGlj II7wxOMbXV8XyWGbSqFcPOgfSJ4+WDaxmcNaZghHLzLnSUAtq3NpBXzbABq6QIrsPYMhO2H1dZWsTc1d dC9Td WX8pMSlX0NktGRHcWSmO0Ert3SJi948W0QbmTCiY4HrE43zaM0zX3mdedKye4pPxhAqZNuyIr7OALWdD C9GaX UmoYMwFTCbBzXnTMKlgHNvQUMvSdG7NKubQXIpZ7tmBATemoNaSBFgWGLXIhBlXHEvLp2psHDzx0McrJ B0b3I gMjAgMCBSDQogID4+UAibjtEqCsgYEdVrQJEkw1ImEQaoQDdmVhNlEPe7RUIhYxtwQvk5AZN6EJT8KXX gNTU2 QRv0FGC7RcvpWWpcLZXaVrTrNoBfIoz9HNJ5ZNDjTaddQqQxOZF3GDOvNnadYPR8ZDJ3KhK1CACeCHO9 IDU1N pW3ZHOnCMX1FPU7DfC6ZRWmKAJ3CCR1DHErJbvgGAv3FE4BPTJ2HBWnUVf8QVK9CbGdFZH4DBY6UoQ9J jcgNz LfRSbiIfV1BjshUyHsRLt5KAU1CkSzMof6BINcVBU8PnivOIP0KUbqHeO2RhElEie0OXH6RpN7UqawTd IyIDY 9SkS5VXXdQjClPMD0MlA2ZBUlLoZ0VHZ7WeF7UGIwJHfwLSR7GLCkWpvjZvl7GDO6KZS6LJLnByZbNSW 1NiA1 NRRaXLIyAQS1ZzT2APPdVdk8RIN8GpZ0SGQtOvXwOGEdRbK2MKEbBcJgLDuqOyG4YHDnEOH4RAD3BtA3 NTYgM cHlKELeNBFtEufjQJS7HSTsDIE1HrZxTMErGU8PEEU3GASuOQOgEPKrIRZeEhPjKcN0XOY3OZP4FRLbH zUwID o7LFU9VIPbRtTwUTn5MEZ1TNVkRaWrRTe3IIR6RCAjLfRkQBt2UFX1VICdBeWdNWq9UYV2JUUfPsMmGS c1MCA 7RDQaJoNuNKc4QHL9USDxFiBsNCm6CDXFJnZkMcHpMHj7NYS9QROzDzQlAAx4RLG7IVOzRmJmZId7ZRY 3NTAg Jvw4TRRhKoW2YHNuJLS1EAF5VxG1LTHfHbLiONJ6JbWhEqAeVlT8PYN7UPF3FFKuJCu8EGAaQtH8Gqqy NTUyI FSkZVU8YOyyVgKxVULdIoKuSfSsLFpbKUS5HhJ7DqbjIeTjTCSpHrPuUsDrYhG4SHS9CzP2ZqMwISH9U DgzNC D4GUToNjJ2YDD7XvI7MxpkAtT3HXU3ExG5GvwtYFPzFSE1AhQnCxA3KQM9PqQ2EipqPoJ6MPA8ERTgFb ggMjc 6VGL4AMG2IjAqVsDwYDd9GQKXOmFbFto1UCr6NQU3OlrzRwy7RQX3GNZ2KdzwOeIbFCmbPzI5LsCnVeF yIDY2 BbK9MszrXpReMVJ7LwY1HGYgAYW2YQV9FiA8LSXkKFC0XXh5OPA1XRWgRLB5QET9AzD2APTgMYA6TPI2 OCAyN tftHwo9BQP6KYG8RQXmOMzaHLA4FvM4PDPhMQP1BDD6UeV1LSDkQHE2HHL9ZZY5FORgJCP4OPM6ReM7N TYgNT M6CZQfKOU7GQCtAJAgNO9mZHqejpWhZymBCcOcFAYkz9HuTTpqIVs1IDolYGOoY5B8wKOaXa8yfFHka3 NyaXB 6x3RUAcQxFPMtFg0hqQ8zrDJaYFTzRVsdHKFsgAesYEzeNFIxN6McU0FjiZN4OWObZ5ElKNIiX1o9FPe wNS9E QSEuRW71HM5eGIMLRrLsCBRrLzbdU7SmFFVREkFhLCPgTj0jpQJEu8oaNvLnXDTzVxWbDGM3WRrnFN6Q CiAgI QOrBSWfjAfwVN1jmCKqWC1IpFQcJgIdCOacJG4+NUjdgsHyTqfHXkC0QHKkq6TwOGslDPq8IQebLBWnJ 1R5cG XiCd2dxS4JgBA8qFLpW7LvvVBCdNPhB3Qim1HCs600U7MngZVtHGd3ZVfhLq0HniPzZHfxAz2TaP9Pum NpRW5 fz1BkpoyNRwJpHOIlWvaax4VMdHEkPOCkO9rtv2ELzXPdCIR6LJ5IBETaJC3GfOW0nTYeDqTnMMFYOEo gICAg Y5BjpwIHPISmdgobrP5nAKMvNXZnAi3YPYC+Nl7XWE7ri2SoXTcfUWUaEZ8mtl3RKWOxRCp6DQJ2RWYk Mjc4I ZBeBbY9AtCwWJJ1VEG5RyM0KOdaJiVxNWWsEFAwCyMtVsRjHKS6JHW3XKPpKhi4QZZsAvJfPismYfb3T DU1Ni F7CWUsSYP4HUK9HlJ4LEKxSMU5GKL4XxP1IMTzMXE6LBY5KvVvIiOfTaQoNPY1HTNTBzJhKEm1OJL3NP A2MTE eXGy7ECwgNkZ9JqLaTsNhSXfqVwJ2IemzRbOdRXl9PVD1AcNjNnn2QKQ2JdN2FuNuBpAbTKavDzY4DkT gNzc4 RLQ7AwS6MybdUoEuBCR7JhA5QNEtXbWlOTX0GpL9USAvNrH0RAS6XzX0ZSHgABxwZOAuZtTqOrbmJyVo IDU4N CC0HTVjNtDbBPK1PcQ3HKSwDCJ9IASmPJK1GQWkPaCyOBEiKXU8NVDtSnp0GDH4EJF3DEXnQbp1FSo4Y SA2MT PfOoOfAMWxOGZ2WXSxIuy4BNS7RrTmJgClLpPcBFZ4OpB0WpavSTC5MV2WBWZ6IVPpCAUjOSN5PGAlPH AgMzg 9MNP3WJJ4WCRlJtQrHWr3EGT6KRBsNaYcNRc7UDD3EGKfBrCoVBn7HWD6MROtTiRjEBm5DDL8BBDwBgO wIDc1 VBI4YKFbOkOhXBd0EBW3TMLxTrIcFOj0XNF7ZYRgIiVwHBo1ECYHUbMiNsLgLCs8BKD5XAAyPcNhKUk8 MCA3N LIzHsDoSTv1CFY4EKZlAze3TPReHzI3OJDmVOA0MXC5TdG1ACWzYtkvIQG3MrAjBoGyRwG2WZH1XPJ5C TYgNT z5LQKgVmU8KwgfOFDkIVOtGQU7QJneLjDbPSUgFoYoJmBgSGffEHK7CqL4VKDbQwNuVHGfZxCyCyYrEs Y1IDU 1BmZ3TxTjCDF9HTsmQBO0UUEdNrYbFHkyZgA7ZrKlEdObAAdaAtM4KtOwACRgSEE1TcQiEjG5KLD3VdZ 2Njcg CqB6NCV9NQTaZzheCmj0HNK8QJQ6RjMqVkJkEWq8SQWAOnEjFxc5IWa7QWY5HlhyCay4ZWA2HBJ3Oarl NzIyI GbfQbF1CjYxJhBjJPO6KnM4CniiHcHzSAD6ExB9YGEdSWH6QMZ2OrA1LTXdJZK7BFv6QWU4XWIaVCR8Q DU1Ni P2YMWjMCF9UWN8BZXcGjxrBfw7LIV8MXY9CVNqITlwIUGaEGL5AXMjNwMxFXCcPYO6QQDsKlLkDDY0ZT A2MTE zDpXnSMBhJGR0QVVnShMvALA0OnW8WPTlJIF3TY5zSTcdvsMmGurLArC5SZTxh3FzJGxjZAv9HQnsSCC gL1R5 oMQsYl3ziVNap9RvvVX8h3BXTwUtODWcXr8ikQ7goOGnXXKdDCjwUv8eYYmHsHOpjEGQJcGzZZXbLISk ZW50I CywWY7ZLJOCRLsdkCGtPNW3D2Wrk9GgvqEhIKYxBw5WXANlGL5FwIHbyjE0Ij5HQIVsSY5Jb307KeTcn CBbMC MsUlKxJPEpAKKmHRI0EP2DBWPoLS4ZkHRmiLRQfgsvAGGvH1Q8MF5BHEWBXvGaFt8LXzCuNW6oyz6EEo cgMCB cQqmGRzJhTPmKBzXbFOGlFJgqJD7Tz167H2B6PqC3wVXwEZB9KIM9dABfUgBiYBGuogYrESVnEYnlIv6 sZCxJ zLGvxWXvRH2nz6NdotecN6bfBB9grGIyY04lrQ4iIDcsCKAvS9IibqR0X0hajvCzUB2XGXP6Q5nvbmMh NTUNC cBgJKNsT0dicXsaXZP5SBWmHp4OMVRzBI1Cq655CROjS4AyrWMmvqGxUrAbKSIXQvXjCz0IDlRfJX1kg g0KMj pqZKXrRdwRUxVtCcD8LQLaHJmoIAG8PoMeTWLkXEd7TNrvCSC8EkabKEI1TMU2QEKgNgh3HWO7VAO4WC QgNjM 7LIavMWZuVQPnYMHmUWVfMdV1WkygWmM7FEEaLeJ8ZykaBiZ8LNGyUyZ5PrjzJgD1ROVmGmI6IntnJwC 3IDM2 CdVeSkTtDAY1BM2HHMR5CFcoXCG5DOP9IvA4HsOfJux7DZX7YkY0GkloMoH9KIGsVOP4VBWoRtN8UOe6 NCA0O LZtOYOaSQK5JgR2EdMxDSzqBTy1JEJ6YyZfAcO8DEr5ZBJ8WqNtTkKcMBDrUsA8HdmtVjl2TETfUafpT jg1ID F8STT2KxCqZBtxVNL9XBF9DnrpXKA9OTmgVFG0EgddAZN4ISL4WOD1DiZuEAW9FVLiGIG2AGBcBxxxPX YyOSA 5KSLgWsNzQDC0YbT1WAJzUvSdGCt4MML3XNAxUtA3ZODnCKW6YsebWNR0RPSwOHD8FYPxHaQfIQK9SXZ 4OTAg FnM9FH2HREJ5WoMhQLW6EGCrZkG7BgiyWqHyDEhnNYK5IZBvNVOpGZJgVYKfVZHbZDDoHXDsLLWkFBOk IDEwM DAgMTAwMCAxMDAwIDEwMDAgMTAwMCAxMDAwIDEwMDAgMTAwMCAxMDAwIDEwMDAgMTAwMCAxMDAwIDEwM DAgMT BaKNSdCSAyGOWjAKSsOVRpQEBjARStFU4EYSPxCBVzSKCgDZRyAPMqEJIuTTIkDJWhZESpBUJlGBZxDU AwIDE bKGVgMVIiGKScLYNkJgFgZHSvXcU2TelfPyM4COMfQjE9GllzPhS7HTV6ZfU0WvmuXOP2YNisVyT9RCs gNDMx KNslOIK3NugcVHJeJDdqFGR7ReowTIM9EBJ3NdLFCpMvIiAqDXJdDhOdCuAsEEI2SJMcLVX9DdmoLkPc IDExM ynqQCQqKVEzBML0PSA1XyQ3YHBxBkg9ZUY6ZEL8NTGdMol5SIP8MXH7GVlqWuF9XRDnIAA7JEWbFkP3I DYxNS E6JEZzODueWHZ6IjO9TUTaWfk8EKl4KOG4AcJdGPrzESf5ERE9BzOsTtbfRCr6ALA1MXjxNpsoHRsfWD A3Mzk mMoZ3YCweDGV1DzPcEfE8ECB5JgM1RGdoBPq2DGN8UWD1YQupMEj8SFV0TWS4OhwrJTE0TPA5FOC2MBG gNTk0 JOW1FEAdMFFtCjFyIRYwAdTfQUQqToGuLF6AOFS6BTVaKnT1LWRtZuI3UDtgYeZ8VXXvEqN6GOalDeG8 IDY0M DG6DYRbCsPdUYQ1GXK3YrRvFhY4YHF9IcRkKE9BOG3ls7RsFFkeBTBnDE5cyg7PNMZ0YY2CSMIoON0Rp XBlL0 BsarAHQUWzszemnX5cYKweNYOlC1LkvwPFBG8uL8TnyA5rYItXh7edLFgzQKIjI6BjT2GltUCoKTPuT8 NhcEh xnGvuuRJkSYFpI0Pyf8DiuqPjYTIlYg1EERTyWG1WjHHfwoCdDs2EXMWbAB6Qb136CaDmgNAqASMtFvQ 3IDEx RTvxSQDxHN2IHfYkOTGhVWEzuLyyHU1czPHjIB3AiPOgSzLwKAepCB0+SPkntjLzOtiFHsLhNVRkm0Uh DQogI Fq6ZHbwKMEwO9E6xRFzBw1ufL0DtYS6qPEiQ5EyzWGKfPCqU0Ggf3KNd227S9JflF8hOWyVs0drX6McK 29kaW 0iI4zuibOfp1aPepOmYLspPq4YTAAaQS0PrIStrLXxQKAjSfGzATRpnOQkDBGdZnS1HNixXEQbW8osRG RocyA sDKHoWVKZKaXzMQOvNt5edIKmx7RldTH5h6VvLpcaQKCGQZloFO1+OJixhuOqOfoAGsTuOWMwp7RrHSj gIDw8 LIbbLFSoG3X9vDKnEI0sqkDtkE3CqHM5fQBkR7faOAkbE47dwAWjiL0qBB8BpIGhNRRwX60dwM4gPX41 IDEgL 4IvkL5iC9ExJ4HdEb4JgbRsqBJdRM4UMXTpG0NAY6GiYVM3YHUxTEFnFvAnXfRlRm7sX1nmcKwkBuD3N C9IZW ykyGCoAhVjLQ0ZZV3bxCdwHBK0VKQcUsemxWIcPIhrDmdurQHYAJNpPVMaLYfpYP2+WRjcTNY6isQglE 0KWIX svX+MILr35gz2BFinqsNMRTPvJld7bMe6VBwUBythqdiG0+nLBi6SPTiDd/2PbAHmULyDLPtkzlr/NLH NjiwV npCD8FRCVEZEefgqAUW+8B/m+GKTisY1rmMcZARKLrySOM8bpxUMo8NN1K0W2e9Y34QI+V8DfEbIFtFH ndXV1 U661T2i5zaKyvrk0cUqBPa7oKib2+APYUtdUCW/Nfp5ZCXJb1mZlwOI5buyon6nsmsLdwYRRPN/Yir5F VPJr5 qMwyNQ2zwlfe1pjamItqDFKGQ/Vyo5DFSGg9wWxpOB8fgskf1jxmrWcrGCEOE/Vjq8XESOt5uAyzPR4f umkl8 xlfyKqeRXTCW/Tkz9GJULr6tHhfKX0zgjzz3txevPoiXOOZR/Ztx3VACUt7rIjzBQ5nxdej2tfxeTpdV XTCW/ Ldg7CJACe4FMU+ZtixXT5Z9tO6syx3pENonD4CF6WY+9l9i3/+sW8Axz6ad/OmRhM0MzSH0s/W/R41N4 3hp+l UhA6fvsbXI9xa6Ng6/+1W+X/QHUf1417+54wNtKnePWYn6S9lk6+ghLj07qtAY/97sMP+keHbVCKLJCo iu+qB XKGyMRrH/8miJaogpmLBJGlB64ZWUE9azJhy4Dn4rHfeUa2VeLei02dEF+iUfMI6O7brV931K5VUebu0 AF1Vj d93aZ/O1nNb3yZbMKOwECxY13bPCUkdALTl3TQhiUW4g8iF1u7gE+u7TsZZdr8G38C3/eFtKVcisM1Vt 3dj7c SK3NVFrDZu5u4uuWdOM5hyBBZMQv7TPxDlRVGIKFoZi5+QlHc2kgQuHdAKBHPdvsEabVkE2CK71qfXU6 lhjCJ dW+CmQg8KbsM/Hc3hh+sbY1gfC2zEWJY2JXH2vyMht5NHRuq7NFvBVQy5JoN82KrKH/lRgau9OoebNiO M/AXy yHfLiPjh8mHnG3qVZn+zuf3F/FIKplS9Y/fvk7GJPh9Zrv/KWnR8fS+cWu98lx5XTApE2ylwKOds30Gs glwG+ EAXOqAqVvRMeYC7RGyRAfn1g6xD/jIJrT8839sJpKdG8nz53+7OD7NQbTyODynXQ5vG1UqizvqlHqHQJ uDXhV 6F4bMGtQeix2uaVOn8iQImNyPUDty6fIZcilthy4XU85JkQXgXE16pZSiE+Xx4Tem5bd4cLJ1IrlLt8u v2Zzf u78xLjqPhrBdmqWuzyeS2L8NTek+sgvgX/vCLg0eCdklzQAnB8ZrSCBSrDwnU/VSrEpbOPZsVHA3/Ezr AHFb7 khwGI1MR0+XHjf/hoK+AX1Zg/5vcmG+IOkdkCROnIvSZ2SzEK0WFd6u+OXqXpvzr6hBemzFX59AupRC5 fxA7r mg/dpq4tQ64Ha/vuy/OfEUI6nLMvn/TryawAJFXyBS+DXdvzAVf+LCfkm08H+co3qPJJDY/sJKw25ms/ CyQ/z w0Lop4CiDuBV0rLn44/3hLM/BdXzI06XImh3mTlv97MI6KmLC/bvSyJhUJkhvzoQgqfiHvKLsXZUFpqI 1oCfG bGYMotEjvpq2orQqmESx4fS+X2y3kR+R228zoLoNMXD+v9hhJ92o2kIitsTV6n0bw1GibF+XVknR3WHy lANDv i9mrYzJ5b/wJdyBefrUuu/11VgxYszFqXtk907GX4SlqvmWnXHJ6Nkw/o04teSWyOZtsLlBITmNvJn6S XE8dO +06mFICTJFBIKc0Rlp+FO7svl43ayR1H+LrX/aoe0v59Ylg5v9/IURY82lk5zqr6xpr2u2Hvy/CzEfzk /7H8o Qyhwx6CGcrNfk4aNPGoBAu6/XeGB4/z59xr8QX7SKh4v/F9JzunM55Aa/BjyA//miOSQsIiII20RnNu3 8nP2l yzzzOfQCvhB+9fVwN3q1h0pi+34RS6oS84Bbe6+Uy7KeEa6Fvnq24BuQhh41rzIsWycVp2S6h+OQ3DJD jc3l5 9x/MqNsciJJ1y7dThkwfl/fX50hF+S7NeTfyS6sia0/PQDbGld+gLZxJn28xf47Tc4JrZFXy+jaJ4R9X TI7z5 YXR4/S2uI7+VijY6bBE3BDTOR/ySF+HR5iezDBQ+5+AXf+vhm8+sp4FfH/vnh6HtsU4W3K9V3N6UaTvT vWtRp Uz5SVzOzzUzY/d1zfgxoE1iG8+cS2XfuDO2Y+rVnvwZ9n8FvY5viOsrNPhA0/Jvc4rJ2hrpWKw8b/Kxs ux5j/ 4O7/q9w/NB/uUnRmVjptmN42w+lkR9qAp4AovN1FFz27H5PG0DGr8wcm0uP/LhrcSnQzfpvwA+M1PYMI z6OX0 ERiuGIFY6/fS2FIi7IfQ7pRdb1pH18TPPVvnp/A/Ie3rbpj08lNhnIYB7ybB2T4egBB9ZXER+Un7QRT/ AXRjw J/R1NNRtp3GdcibpRO/+iDB5WQtngKdlW2Et+FvpvMjC+Gn93dm6m6YUj/Lh3OCgM+YW8kY//4xR5SYH 9tkHA AQVs6mb5AUq/dPW2v0T7KDcQ/THdqG7fo+n6n+E4iW+/4/7TIpM5TYP6FR4AWPGXMgy2U1U/jYCOGt7/ gJi5a jR2UoR5izg3itsNGn9V/D7JFr0NDEAcheZ+lDZ2yZe+kQFHn2T4KrLFq2oMxeYD8uapmi0oikoYtlBGH CW/Romansh r8MFUQv6lKzcDR0cxkfs2pawjRllLILOS/Xyj0DSVFr7kDkeZQ8byzks1cginQhyTITTV/Eiw5GFTAq2 hKfsV R4rwxlx7bczuMnlDEMXG/Zakbn7c+Y1e1m3Pn+RVT6b/FtAi/zYznZ7dThtFKLQGSc9FEkiBX8OD0sH+ KFuFH rEBlAChOQMgDZDZlKr68al+W7sT2iUhMNxmrafRYt9XrLlBqUyq3M5u+TiDuwL7K9qCTxgyRS3wi0DWU aZYW4 /kUNZAlUekWMstTq21qXSRfi9ApAT8el3u1hiqyouTDevXC+y4tazW5hkR+kKplcNNx0EimWRgpuvEVu iRcyj CqXIIhPN1bf8rkgFYaZDIPnoTgIsDUjmUt33xRBo9TH8PpNtit2QH8uNN4F9QZ+ZdSHTe74cQIBF1zKA GEdLX ApaBFtQg/eT9LV4JDGfAJqIvl6GS8opkLzHkD1+KQ8KtbxSSQOrUgiMYxMj1CkMK8FRrZqHIee7/vLqH DKRg7 TiWlelsLBn4qH6mQbgell9lDN0GZeA1OJ4UWizdqXeYSJxu+sRLtlB+Koy1uYDfFEJEuwyypGjHJdjzE FHjWn WBi8yiPRrjfSpp/qZSHfLShsKi50gemYH5AJw39oz/CIF4ROWgqshG+FIsWFI0zDp9WHZ8/YH8lx7GN8 xSCjV qfn+ILpsidfwXpE6dXtLEaavBk2Ar85BF0mToP2DKGd4W4dgcoWkV1ZmHUS/pW45QqVNroiHZy1/h9x/ FTtu0 Q4so0xBoCh4nt1x9tol9Kz0N7g5Dr/YEv86JipD4/wv91UuNcNF+XDPixX9/FVLxn+I2gKvp3ba3PsK0 F6gMe kcvMag8r+HIqMwjyiJoqG9kQfPIgufG7wqWyBSU/nN0I9B6FGpcqmbxMhbqDohulc5zSvidaf+vJMvn5 wO+/e BfKA2Uq9LScMUos2/5SkyHhj8gW+EFANBTcJ+g2lDl+y+gzXZRfMMSvsVR+8TJtp52JluXxi9Sn+EH8v J/zG6 TAeyIqWxy/9oAouua59urPNgFPibWB4/SlMORfQ3Cnf/9i2lli/ZcEmuzm/JjjZ/w5+UYE0eFoh3w4aA /zgOZ v9+LQJekYqqrYYoTO6OVbe5cqe/FLwpbJrxtD+/C31VQ2HAmr3k8yPDHi5dmyrLWQiUnmnGllmc9aItf 3U35q +fHz+qu8Rz8jMC+l/Thar7FcxiMenbxT6+ucx++kM+DXT+MffOm3b6t6B/JRLFjR4ZQ0mSU8yBqqi1ep x39Z/ 4Otf2hd0iNk2mlZuL/Dm63s8UeO8fDy7UI6hTBPZx1nYrzeFMs2FXf/mdLLJTCt0nvYe7nFCem7Beh5e 3nxc3 Btbf4NLdMg/22vdX7/bQtTkLn+w6tCAWGBB3VVI6fHNsSDYz03c/PL7HCxubQmgV3yS1dWWGBMB7k9Fa r4S1f cPM6sResmF/sC7WYb6pUEX4o90+qjLacJ2FQ+kx9OaybHh8UuBnIiI3mqg9cu9/N8RdPNBXF0wWq43W7 5LWRC HYlu02otkU8s/HlDOl3BTPuDH74zNqYLbv/3iB7udxV4QqFqwnZfaz/MED/LiI/de8EBTXw5jRvga302 BfwUR P0wA6jaWrja/JRK/9LbcK8cBDpFuCC/EObe9fQT5p9X83wFE0HOHO/dhfjBQd+oLjQ134ukkvuBZo42D XaWdv /n5V0EKcNlokNIM7PsQsW1SvirSJ6nT9tHboqIbAnLFFcs9ZZX0g988wlUTfr3F+e3nqrZ/titIiISB8 +zv3r 29O6iGKZvAf9WLQoq57OBZi7NVL/30vh0uGy5WOIOz2jFezRR7vbpsc9zMohENurKSZQF8oq1omjRnTK mKFJ1 h5R7ZKhsvz7/HdvGQKl2t54ixUUsgMAghlQqrv7uP2TgGMjlUI90EOybFmq9kHf7J5sIg51qe7S96Y3x C7dDw CDjeTLucxzxA7QvhZ2dGpttT5SI7hStIJ4gfQaZIvV7D6gsa1msqEdm3tjjwYIhcJnD1iW8C9IKQ0CrQ Txye1 tQ7IFBrmI0mWOwpGbcPYH9A494heE3GcevNVmk4yhOqQ+QDh+O4gE/uBWMVNKGgRa6JbHOuP6ir0dN3J O1mvy 3saSfl5NPP3pYWphZ1p3N3YL+3qKws4Ho7ksHfG2rx4pRY5vx1M3S/4WH7pXf0/uN1WvP2R9vatRm1Mg Kryd1 bbErspF1z71yJ13O4veIb5A26Ua1kzJjfBxVGQgW7mNA+D3sln2c/mRSEEXhVaR27zTkT795KvG5bBH+ 5P50f zem5npMyHxK7E5DC9UW631RlyHLME4Y1F8PoHbdpG7wDz/RTm5j1v+6hyYE8C7ivvSm01qqOx5TnGMNK lyl2L P11Rup3tMghP2jUuf3x7Co+7Mikzq1vjXpn8Gj+CWU7xUOe0/v77r2nvW29KroRwAS6nJg/NpWeyriEf CDyv3 zdyn2WxN4quNcr4RcISErXXdcUAWwsfq83O+lqh0jAZs4s6uZXCYvSEJ3K72A/Hv2Zj07jmIl/LJvPQi 1FFP0 7V0UbAI55ykBv6G73H2SEe/Vr41Fi4bcy45L3rzuZnctvMQ1sl3kmJ7l9xlQH4J2ShLic90G/PTuefx6 zya/M pzhObTgt8BpByYxaieAr8ZU6PFV4nGLh6kDvmeLgcXc2Aoa+HOzSTe38IM/UmlQFWBuf4u4CujqG+UjP 9Wuo/ 5R7T0Nz/4M90VU5nMf7Hug5BhOGEGFBMYL4YhzTfSKmD3iACR0bPw3Fg7sNO2Bua/2wZSf+yt27a+kNt uhl4E GRUo4MO+6n/Kj5/GTbU/tMMugHSbIb/p+5YpF4Di6xeQ6vmu5PG1TBCqqgA2roD/kd/F1mGRKerNdU7Q Rj5+t Ky4wr1z6+z6sdl5Mhk5tmyX//nEpI1W7JrWL1/l5uHGU/UVc8aNDc3mE+0wgGlJu3+LnyfxipXbpUbtr 29jO1 zuTgpwFtBA/j6E3nhrICbANzV5Fte0pvCpYodRQqZqd6ZGSH3MlkcQp7jrpUEyVEnM0/stwz58bojcWX kJ2V/ 9Dt3XoeMTm0qOwj/+x43G60LqQ+vO8j4D1K+eyZ/r48qhZdAu/eWrKDY0fErq4w/a860hdKiEz9EKUN7 6STW9 /E+e/VhNu0502B1pSCK0DxyQqgah2oRiAWxQ4rJbiD5fMSZzxsdqNb/0+Q3H1NVAIFVu8t88isER54Bc /2LYc i8uWo8qmze+O6WMUJ4dMqXHBh3VTnV57UWV66dd1v6tXR8TjRvVz0EEeE069qcarGbgs8FxFXsbc8ewO ahp1s Y2rAcQTpRd3fx5/xhNTVhtwmT3Dtuag8liPx0kvVr9/pNEKxldUI0wuBLToYt7oR3qLf9T2sZ/n+GGfN nOtBv VNE3ETtx2a/JruYpSVnTjdnqw+g99Oxs/tbNtz/ZDlRBZiOt7pGk10osN1gngGMtBvrM+q1OtYAjP0YU cFb4h fezo/yPA4AexLqwy9E7r6b/lrk1/bX17oRXOPbhIJqIDYTy+key4iGcSropbP0EkGwuXGhxX0rIpB/07 59ebh 79WXyHpZTtyBtGMmTdP3ku/EGW+IjI4RG0+NPY0iov3masu1XZ1cQrzmJJ/yxhgX5Nias43MpYUt7Qtz n9pkH I4LQ0mYIu4N+dk4HT+QVy406K8P6qKhjCGO4Q5tOreoNn8f4By9M2EQ6UzdDe11bkLe/BTZJgKbEYWz7 5GfJg mp8cwfJqxtZ2uZJZ5IipZdIS4t3NmLh3ggOge/hlMsTG8ctB/l83OExewOZOYtyWmSjhTJ0YK7CnTcmC lhcEN xqCoifAJ8R6zmpgu3yUbKRb0xLpM+0P/I+lSGE3VbuiFF+r+aBDk/VeYcVqGcdCWBuXU7fvY5dITh7Uz jKBm/ z4cvSfjtGLk4UoH/lneryQLazf2ctjgVcyxath/NHbQ/Hz045nRCXyO+9KYIegyymHgk44W60QKKBYoL 56zrf zAyvf+MsXLHmEoV4GOsIv8CQGmRc+vdlef8bAuAJA/WTpNpY3f/r0jtDsP+p22vh984MKMZrOHzmvhJM rYPji hn+M3jrC2LVL80M76GTq+7ilST4pb7mMCR2UfAihdXJKssCo5WHupf74AAk9NEgjncz2zcgya/rNkzxc 7geqv I/Lve71MI9sdqp9y+bTRPk0vKg1tPFmHB0LWPGCeV2XAQ+by5nw6q97KRERqR7lO8D4BvyLvEH3+fPG8 a//T9 ZlR0EnYq84jWtpU9hMrb4d/83/9yMvkdq4YI/FYqr+AHWVA7rU9o5d5LDlfdDzvhIgJ+QgbetPb/+JS8 fZskd 9fL3l79Kks94yabdo4ZwZdH+OWodmr+1I126r71E4t2ptUS8Y38BiHSKCiaBRG/Gnj1NSZAw8sClvGH2 iumkl 8xlfyKqeRXTCW/Jgp5CVGZl9wIzkCN4ecnpo3wsrlEpkNRXBQ/Oiq5EDLCx6rWjpAH9vycvl7mhdnCrm RXTCW /Rtn1YYWSv8gTbkJU0sjzoq8vvvzVavEVDHN/Imq1ILQDe6eYfdVJ1fioie0xodmIyyDTEJQ/Skl8XNG Jr5hK alRM1w8hjaJ+bewoI2zoj3Wm+RVTya+CZu7FXDMzfhUyITT0ddrqB7zhz4Ad+RVTya+FAa0ZNZJmxxHk MZX8i bfoZ7xzr9Yn+RVTya+CRy7WDCGjvbHyGYK0obkaZ6hia9Ms+QMCcsQ54I9T8Ji4o2hjhr38MiQkLENPb Pq0VH XMNa7VXXO0UJ5UrmFfws3e0QLqC5tuQ0cdVbQoeG5xfNhX7I0SMbXIpmPFqaq6Q3qs7BWYL/J3Kddfn5 wP4LD CB7HZhrYmGy/XX0zrXtc+gqVSmlaBxzav2sjrDpJGXR/kAzm/KTu+uy9Nw7UBwQftYAEpKw2TH4+PnVl iY1fb IIg3qAbIC55gsuGpPbe4wOeiX3WywwVh3+3Me9J/LhM903q+5fw+wWrfNG7YCz9BN1mtCq8CPnLtqR25 QXSv/ iVnj02bAx+D8VESOxosgSSkA3Z0uN1mt8DFd4CZgopV8+FUj6HjA34OUuitrPrFR/urll84ClpFapQT/ 96943 r9d/35jdpfhPvSQxNsR/syGx7aid+uN7+sqNbFJLh9YRxJBTUYxBanB2iC4P4xpc8Ey7he07/BhQk3T8 7k3pJ IIcyG46gV+UHUfmelXVQH28n+PcP2ehhisVX9fxE3z/XCc04IC1lSjgJ9047KL8+vnWnZ1OcY5yj2/RA qG89G tzQ16SMBWpCLtCSbutw6VCFUcH/m/M6P//Lmof11JZcnuuYye1CCE9VyisJLQ71+Si7Djwy7Vto3aKik khMiW tXV+6/mB6MO87TkLCbljDHaVjWt1ml4wiDK5TJVk2f7UaRmAZkhpmpamT5kgbWJmP7vYzsPCIXMF3c2Q 5wVBq iTehXd6tPnymVCh4s3JydJnEOFr1cNNza7YPC2atBAfbig/LW7bdzl4n1H7FN+HOj/WoJfaVxzf6eDGx xD4TH kzA649OUOMtO+IZnRv19gw6hy6uBFsNsGrsnKFSxDX/wU9zB+qyRj4OG9TJXOW5zHGuggABdJgKf4BHr MBf1f FwLamdcKJksYcMNHCo/JGlFEdzwCYBPw6RBZvl6Ahr/c99nXPd3JKRcB8fLeCGL+tkBEbbYrzdqC0RtF fkh07 5n8Ruu/4/MPHBE+9Fe/Gma7UxMlik2SqY/xDMDQHFo+EQLRd4S6gHTmFKR0DQYNn/LbBUsmWgMxwrp4O EgC9k f9nF8C/GRmf+4MIH5J+RXx6o7TrPz6lXGFpH9Kr3CPO+LMJjrOf+vn+F6nYYg3yItS1lUm8kHlDr6D+u AtQaA 0Edka0A/UP5pdbKB+AH3WyHFXDgvEDOIuigd+xnmAzPgdJGYu+7LgUWxGpBYFW3Tsy+1EOxvvSaABxgH ysDdj 5NHGUvMGdDpjaXgM/Oo9S+n1sU4bBkv90XMQL2h46xpoS1429FJ/yNGHCLt9nF2XdeOFezmPVzgvuoCs /UVgf elfHGS4iToZY6Ez8OpIGVAffXnntxVDNi6JJ7pUYUzqPOatcyjzR5hVtw2/kMYEnz1vwZr06nGr8quEp aWqZJ QB4XVyYf/k+QaJMmj4R2gDogJ2IK/ToUylcx8Im2808NAwWdstHfa8Nj/7A/vbxrpgNr+H1tEvxVgiOB EeL/a R3/MRfhy+SgbVqQ7djReL/2EbIP2OCXsD71JGHUrpb/wiPAg0/o5fMqv+G+JHiC/ONiQudhc7dEuH3ix JmoUV GT/9WrJuIv7+W9125GGNY8uvFFTznAPsXJI+cBzRog5gs3B9dke30IH6BWjsOR9YHcqNzEFAgb5bBgAE mongolian/Bg +T85mx/4Ltet0WNVyHfj6JgmdmwT+DB6q0VGXPdjjmZ26rgUFC/OlQAwI/JUCOKnb7Um0N/AK0od9MUL /hx6/ jtFuPnKT/dl1jkr1QI5ThMI0HdkX8KzwV6+Yp5RxVj1vD/uuSyab4HNAu+ko1XAT/uix4vl1/g+AmGHG 0n49e PX9D+gXbx7zuWhg2TBE7A0Qqa5/yF7Cf5auq8ahq6iV3vtav5YBttbimgJyxAEivduof81eVgA2qbKMo o8HP3 31xMWKueRAzeM1vdtFEQ/akEtP9xBkrJ1iC1Cqn7YSFi5EA6CwaF5bMj4N8/JJ+IHK0C2jzjf8Zp2rv5 yLz8q S7n8S4aUEWh74U22F4J5yPsHWnBD/b3qjej/bil1BzNA/mzUqnCm8Mmn8lrTksP+vTzoWLP9Kc42fams rKHdz AbnhJgdcDv5+GcY/nBCPofv++HegvHXxw/T+768/VZ6abHHLQ7ZbXkZrQDfLTxg2uEyjRLn7GU+BVwgy qolvE R8ZOgE8ws7/lCGa5Ugg8mFF1s9YEV89xZ4EnU1Wtkjruhd6TREdwIWcyK8RNBHFZJ9JhxV4sEBg4M/+H OHPWf Fr6ME669dBBuVzuhT1ntN130bN4mruH77Mm8VttOiSZJ+v82OSEaj1zvjoqt06gVjJ2D15nQ+EGEHHHg 9xB7k R6i+fWSYUg1RJDben2DgPdP4f/PE/j/aht78FRlPZoIi4cNNaRMAlyZ488dRcx//HCMvF39HNvq/A+Pk 6/MKB L5roRx8/apOT6GecOVa0y/8TDOf+6Mk4ZvRM0XKJgT7ux0RZCyXTXCX0bURT8acamQsNx/Nii32oXd+v zkKL9 wgoJHW2sZ+LJyQ4Ubo0rw/AGvdgRIwKO23LYzH1aSOQ8PhhQT8bR3E5FZbzWcQPJj4fSaRpqc36NRxf9 6sc8v UyCHNtmZUOJpEDiNG35/5BNLSS6F/VXsBtq6mQeGo/aVcMd87LV+ab+ov891HXKHvftWw4m16mvbummn mVODz qGCuZHe7ab95/DvJvynn8YLo+8E7E/B4GZbMk6/2KxYtPMCIiFahY4Kp9WeuyCNzz8NzKlQuobwvto/v v2FI/ rc7ZFAVN+P0jZHAycdBO6XfrkBvj7alk7R7zvdVN5xYxfilOIk8Stt0QR7UF6o/nlaaK3xc0RX/mXyGy krIaP TCQd/PB8CZc4QcEUG5YxhHXhLpaKK95DpE/bN7NtigNWXZpK52Mwvs8Fur/t6+C113yFCZsr0/V+9mfb j0u8I w+38eqPgl7f3Qq7t6r+OlD2wP/MrRzXJcCV958nruAJU/3q4AnscDvJ1jS2y/0t8+IXKaR65TUvKFcBS hHAyP Y7LsUeVXjKFuQkUV2SwowflW6z4S3qwApdAeDQBCl0sclUHCQ7pD5ThgWtAqhtyQ/zTAt5C2xNUrsDJu HLj9o 0yfTWwnUaZZWXeIOjL9YMfA55DzBh60d0r+YA14LcKbJp2htL+0SMRBekNHeXMVtHU/sIBP+Y7JFsAK1 4qwB5 tAHF+mongolian/fiU5EtGwbCTyc6TLYcB5TqrWPfKzlbBS30k06CBrHcEDe9GelI0q4EY4Tpim1uHtc/A059jh Ze+eU hxPU20kQRhhDOvxfrOWbCqLkES7+nTo0RSbpKg5RkVkSLduJeLewyTj3jW5K62LHaVeHC/gSTsEEfhE5 y2+mX CY1YbRKxIEoRTiuV+6/cLkmz5PPrlyh6CuTW0LCW4AEG7/YHsBFDwOlI69pbER4lrery++bl6cZcW75B ImQXE FJqdoIUfqJGuyB7sh6o9Xvzn9zyoq2FUBueP/2utUsdQfX8ZP4+DnSL6H6IQ0atiunFQyC/CLkx/EJk/ PjHR7 a29+8o81j3PDsc8iWaA99L+Svt3J+hYkRoApXXvaFxi3a1HfxXmNoZts3xvYeJuZf+isKtT9P2knECKW pphPR tKv/ajYRC/NDOAmAzu6FjDnvwTzo4uY1EvPj/KZ1g+aOH/ReqsFT7Wwo+FHKln6+66Yh+6DDc6IHu/Nf Bn2qr JH2uUF8SiknK9ezYOklZWNUabEtE//pXOH3kewpPcgdfRbg0a1Nfe/YPr/4iNDg9t8Nmp1lpb/EbxcC6 IKzVN YyTH1c13bnq1kY0pdi/E1BYu3R/31x+ZH9Y8tWVEt2xk1PH/sNLGQ1O5IU+MXD/Zr3HvLfq7yuExzOzo MXvij 3Kf7SgWv+i/P+B9Z/yE8tyk++RBFeyeChIb5tDAKEj7FI/MwwP98+O314efFyvJW9h6pVIAbF2YBfphF /NcoP 14OB/3w9LZifgE1MSmrzakt/bt2OSC2xEb5zXCR9Ad0dmRs9cU4PyDuH93QJsk0Owk/m/DH9UNA4ltvf fgF+A eJz1QClD/QbUxX1WvstEEeoVqkMNtz0SicYOxrpr+ajH176QMmNz+U0FvmOWft3CQOUFW3UCYj2cJ1hy jfdgY j93NJwb60WRIQk7CMcTCEGk20ZQLAS84wN6/4L47+qb3/p5ENk9OxjAQZ93SYwDJqyIUSLIpzmWgTx+e uWpgG /fCoVcRLMiycjLQoilXfDaK1AUzJiQavghJzb9CU/jYb5wV/aU+Qp1+7+g43qXOFsZmm5Qlzx153tZzZ 79ba7 f+n4JT9o/jN4ivoRn5mvkv/nE6yDThgB74hkn0zalip6c7H/iuf2l4+C2tOeNFvzeWnNnUk4nw0HnS+B X+jwe noD7EX5JUhS2eFC3Kp3S2yZ+SC7s2wpAFI1HRLDaYUXWuxKhUYYpn29iSLjjrhf3h+Xs6HELJbRGokgy dJuIo DBciXN0NKiho1CcCCOc1wCu1N+h3nu53ccI4tUfvsihhI8bzRuyao9I0GCChyOsv7ayj3DvoPE1S6tZj Da5Pv VeXw950xJL/hBciHkpb4tl4/BQJsd8kzzjr++tBx+3tT6g2I36RQde0KSlsRk02PoWHcT8qtuHQnXE/9 Ffg8w 20Dvkg5Cm8x8/JjjJxw/hcDVwj6UPsPBO/xv55NHaFXLC4NAE2qq/Fjlr6IeX9FwJ5tYICIk++eOnxsl dUsOI h+bHTiQCIV38/OehuNHriE/UBPjV95J/Xbgt+/4+ZBm2vzjE7FVvNGd4Gj/7n5+eh3MlArFUUmz5cG/+ 2QlLN 0rwFVhiUB+AQR0c/HWhiQ5tHWU8YnjtTMg3wt4Kz+hatwZUgwXsomgZ9fgFDAB28ETh8LsKs6+Yc/mk3 cdv+Z Gm4Kavrwn/LmSOb/lhn9wFdIkrUrb2+mvcfLojFWkg/vh6r2KeZId6YqBryg5Xi8IPGRAH5Sp7vub+0I wZH+O 62s7rPMb/ZCYtsM88bnOHusy8sxdCA2GQYjzOWZeY8+G0mwoO/9Gro++kMmbMqTd1Fi6NtHRt3W3s7r6 fZRQS 9q/jhmlI+EfKm/+yIl70Hr2DrD8a/BrA7/ol6Z/Yjj/zVfp2iSiNukYpiUWiLUwd/ss5UuIz/VNO146M sl15b flj/Chv2aTcxMLq/bnZQsxkd++XNA2rB1/Ljhv/aJdT5Nj72M2sdEL/hO3n7Edfr+sRbj4Q+EVIN9NK6 4H9nj sabwiuaR3uI4xw5/h04HcBG1ApU+p26MkbxnxhcSxdJQkh49xB/jms9q95dzkd/jG9yhb0D/aLJHTVA3 4RSm/ eE66wxX/llUXTOs3xmu7NEeLPbEgG36TKyYC24xQ9RV3/IJ/HNjD/b/4IbQ/TBgC/X374ZwY3XZXI3eD +6/CR GwqQm3e88+4XKrAr/7lc2cBia4hKURubjJI7P+43Gc39mTnC5x3B7qxxdsJoVmE1V0ef9FicN/ZQ9xJZ N8WzB n2DlGf5d0dVrY3fokAYvUvpoQK+PR9eYwXX1veTb8N/ou0bpSdDzEwi5+NbZjKV07dfMKWLUBPj5HEMd LETw7 t1Fqq6eivxaDmj2/F4CpH174tZGjA1Nn1WbE5EexI+fmpW6L/pUDeLl3AqJFV7VWY/Ntl3KB7mrZJpwm gP5e8 Q8WGu0LloggD1L5l8xu6cR2cT48XfKvu4C084V7/dvgC2F+MAQnOqfbzOMcTF9n+wIG4V1n+FvvNnnnU bp4qs Ndu79nNkNEu5C/un9paDRDAYQtoZ/WMjmmH8Qzw5Bnmbozcx5WNTzXxjEEV87k4PXM+FnErGh0x2a5QS Zk+sc uMDXET/v2k/bKIn+yJuZ2g8muoL4iiEVt5tD5ZwLqVMmv/dvToq3Mkk8TG7eySHWhn/RCF5nrikaI17b dM/8g 0g3QSBbbII7tjGefalZBU6DGAA46WpGXR73dg1hsiKbIBslqJOF8dgn8payC/eFL403o01qSBZlZuFuC n5tsD 4FWMoDI7v/qPzhZCxKjGuQ3gUH5erf/3oNrW7A2tcoj5mleMFS5tX3/i8pTap3/DAgEPqq4Q3rw4SZ31 ledyH FJmefFe9YAkmstid/RhE7Pzhqhry3Ji7CVmF/8CqbS/Ymssi4cY+rpd5d8AjgZ/Nal0FVJqo6LR7ziz6 n+Lqb S/Pevsi7rPjlTH+e7bjcyVxwMKDNR7F4psr6Fy/beYSvsrppJfMZX+W0yl/RVTya+OFi7yhzJ+iqnkV0 wlv2I q+RVTya+URf4DTUYnsaGvYUY3eekomrSWbJ/RNQyoVRD5kuutM3eu/BxNbr8GI3v/oXSbK9yWv8ul6Dk Mpf8W K7wdmKl+kXPqI7td/Cvy4p5XsaKWLAN/Vkg9FOVGo9amgk+72n44a0/70lv3/8wSP1d8CvIRQ0W5k+ELECTRICAL SOFTWARE ENGINEER nKNX3 M+GcSofuZontjI7HPG/1Fx3oRuNyFB3KhD76k33on5WBxW/+cjbr4MQK/TyQ/XrLrukg57u/P811upq/ tbHX7 PvfPGbJ9/dM/Frx6//M/Otj37G/J6lT5hZsbPWb/vf/RZ8g7UfiHTtTx2aqYElH+vXP6j19xfXy6cTs/ 17f+P 3//AHA5HNvbrfS5/Y48q7ly5EeG9qdOSGfj2CDxeY9/iP/7N3/+iP/zchla3JosuGD/7d973/Y3/7Nz/ 3K3// pz/xO7/zxW9+7Lv/5e3vbph/6vfe+sbH/qyPK659/ne/97/4qC943ABa+MqvwGv/4zv/yadf/u3f/pcf +4VXv vK+v/rr22885L+99qkf+Z0v/tmf/CX5i6/8wYc+9kTgb66f7B6VZ20sFru/++2f/qP10Q058N1+M/zwh 17+todd fe+uh/2Onc4903L8//wK/5v3114KaipQ/02V/7+7/wMnzoo//RK+R9P/pPI9x1B//M1Hk4CNOFADUMDG rfuX1 F/BDJHt4r0hy+IeSU5/nHp4kMbxBVa2f3ix/1J//TERRITORY SALES EXECUTIVE/5fv/LNb/7ld//1O+88f+MzP/W7b3/Angelo/3oP3n l77wP v/I5fNjE2l7/4JVf+qHYnlrfs3l8z+UXr6W106j1dQ//EDP2+vmJPw8lK2WEvT9Tzxoy+F3DhdK3hkg+ u8H8o jRzex+kqzKPh9+6hIvvWuPn+1tDHl7wqHQM2sP7nm8baZAKv71lyzNJK1rogxBMkX1+SZq6uL/HG/JTn xh+a1 O0BSzGkMkpLEDxs+iyZ9BkK4qL6/FWmAiXJTs8/sutton/j9UGn7S+sWSt1CGu4sSu/eGp21M7dLxnQ/sZuo f5cfj a7rBL7EU4KmSy4md/W9kRT3OlvcR+TP0uEVtUumjGkavFlrCbcTK12Fl8cx/jPe3VIstWxo4Ee4/tW3e 8kX3Y sGE41rujlBE1XlxbH+GGYUipwbg5mx6lngx/h/mdFLK/yMa5/TVSftHQwQxfnN/0Jkbhm2gcKJv9Muz/ nxh6J 0sWPuwZdaEHktd/Q7UQ2p+5zqeBiTvY1+TAzWkebI5hVl+vialu7lMZnoJx/mx9CSsolj0v/UyYE0f6K z7sGQ 0uKib47xnLW6vr0puEgl150leK1s+z40UXNZ+A4HJPdsX5wBiTN12vTgsJ5GxLnxx3zr9JiV/2aQxdRv hN72+ oK8EtZBaqvvP+LpznlYQNv7Z3DETRi743ycxpIB9snXXi6Tk+P5GbdalXRRNHd0MWrVBbyBmnE2wWy67 0Nzzs kj7l0llDx60BirLjUOUuqRzyYbkhw+eJQ7HyV/4+TwavDy4qbjFpD+LZWkRYyGxVEhZRwqMnEdkJvucr L9Iv6 4L7qwA/z1Y9S+jqGeop1F64TQjlZa3pqHCmuYmb437Obei3NnpMwJKKmRUUKAtoTBJxznwsM7RN/MInl mz51q /3hSEtWj5oSJEYCep5Uk4+xcIbRjJEMmfM0tLB5d2KnST1KeaH1x6Iph3A8t+L9N8Fdn2Cw0H/Ig9ot5 0Q3Om XPX09Xh4rYI/zFmU3pgfZzIWzXsgB+4cw5WCuQnuKIzPy8nxcBnBoNSi9Ow4xbtIOGAg9osiKwbuS4a3 Fe6/K a1WiQ0H4slrgUC+dXUDsxrUR6t7HuEwmNF33jiWUka3cwy6/wYDuJcXqqGGKWb3LWRsMhQoCZUCdp2U0 4jn/h B1nkC0n6TQVE4tYjCfsSGwzyFf6KIdUEe1buGb1IdCwyEOO2+P7QTVy/HmF2wBW9lEoV0Wkq4FuUkWTb B8nGK lJ7gG/JcT5G358eFTKvnjwv9MQQzisAz9xAnifJQ4arfQmoX6pDW/2vvY1Mxt49ekxALpA+XOh0Jb4xk QXJB9 IqhqJYe0Q9IEG+KxJf2vwcCnEI+ui29PcYniUVnsNdvMG/Td6qzRp0IK0/1bY/SDSjp/qTpdBgrYy4cm QqAPh bMOt6yMCUXIV9+lnce7qL3ZU/Mwsq9fhIZU/GdMad0GB5cRUruZXC+Vn/JaqVCjYnw+Wr6N4rv3YynKZ 0Yyf4 c3Ebpk0NI+B/Oa5avoxIf2kG+QBADq6jI5WST6UxB0vv69qBe5iNpqpuuJ2MpmHNlkNz/wk+1303yBKN LvAIX J+G/AZyDiCd3fS13V9aGM/CbNg3qw4GHyvTF0j49rO/yRQ1ctdmc05NqCibX/K+O2m/KTo2p1P2T954u zBsP1 bjwg1Ffr3s/XfpdqflQN+W1K5p96eGy6/+fw6AwNdmR/LLtcl44nKEXbS/nxsfzeoGfCL+vw6Kb+nl8G vlfLL 7Q/upbfkBj2N0w2cCAl/Z71z08E02Qmr+6vcz+gsdzbSFB5R+6w4HzkCp5xM++x6D3O5vEluhcydnxx2 JX3/z e1Pp/xc/ILhzMXaDxNk/MFx1xektd5rhAETsR+f7/gJ2W9/SXYvGn0msg+fOJ378jyO3VAaA79Rc1sLD P+ttS 7Y/uLu79h+OJ5H8WCxcU+x/bifx3/Lsr+s8POke5bvS2i0HNa1X7j2Xej6/RA/ggi899OhSFl46Z79/w 1PBv7 ehupv3q4yXzh+oVwoKAhY5C4/an/c2d/9dYdS5Frr+7xnb3bLHZzpg9Wz5epXn8V6V7x6BbJJt0TZDwK AD+Ln HPmVI3bD7MM+jWwXNnauZ7TAach+b0Usgcb0byI+ilAV780eB3LxK6r1/pnTQU4w4cR69O3QvJUg9k98 gUgeU +M6IhojqpUJfIt0/WFj7bIJm33L/RDELf3Cu1kWbCD2Zrupu518/FYN+ncXOATe/4dnEQwkEf9f4jFa2 P9C/J corztbtg5Omg3/gXI9CTgWsd/aDDrWIL+omcxVMLtV7TO7jDOdJ+el6J5YFGeQtXezMILok27j8MQVko bL9wj 6pYPEUHzFNmD96m236flzDd1UQu01zpRwuLQTtY0LhVhvGN91VYGWr+Z+pwad+wULnfWKu//GstlRDSV wkBRA HRqurRHH/LOOSAghtD3qSo/LPzu1R+6eklVh4v1j4QEw3rmOMV//CFzt2QWEbRYeQ3g/abLjRwJsOyDA z37CE aTY28r71E9q4Yz5j0w/akohqdvMld9e/vyXkt+CAsOfirKbSGF7dnteN0vLg9chYyYUu8+F8UvJ7+K6w fN3V6 KSXzGtgN/QEQP3TgoW4Z2KO7bi/sH6oQXr63G34xns7/3cR/7p77/7//h47fM0yr4/vr638dGfgm2P70 n2t6L 83SCfu8T47g+Tj+tH3/fWT/0zN29WO20rj7xn9v1Ukq/mtL/X0p7K9oc7n4D6J9vu2Nf4eFKkBP8q/RX Titef 3zh+l9J+tDL8Ps7yndQaXN8Q+Xutp1J8JjbayfnyoHsmPy+tmEr/LaYC/ZFMZd2j/C7U/nrWtoQRNnwn sPYdc mjhw1pp6h6i3TfRi2wLdu9+7/AXnc3u4Md1iMqW/LKDO2jfJugbyvEv2/mFrpxfe+YciVsT02QL/DfBe bGawi T8mkc6Zz+t7dfJzY13j1Kp3xVXky+LCgiMlnyj9p5FNZfCh/+tAFnMCZADX1Hbe4bLq+2pS0XVGaUHvv d5JOC klGf/sc0ybF0bWFlCp/nj1O/uI8vlVqxk5eYrtDqxr/lC8ppPDOtjy8I/Na/JCbw63Cg5l/IRk4hU1DX 1LSt9 /OnHPoU4cNeCmH/5F3B3rB9q1OmtpMqFql9wlh8Bcj8oIXX1dW/QJfP6t6NeGA191JRGYZ+/qHigmeZg oHUrA 58a2uQuGogJCkIKVGM77ghyNitCaFyrieQnuQ1E5f/PMbmHbbaxOKdUvj9Rj3tC8CFa45tw2Y/xuuJ6q 0Lh3C LDqmGr30TgQj0SSAXsFfvx7B7ftrZNnbuXtS94pJPFso0a+sO2V5/Br14w891ojE6iUnZM5u6OtaTKbF alYRT V9CZ7PwfXk4co/Gci4XGkUtr0w1Qd5UlQlcD3vZ8bz+78V6H/es51A9XgM97WglJqHYhUmgTsiJab9m9 6sPtZ 8n4vEx39jV9QI97sq4a7H/cmbugRmwPbkZz8E4mIp4o4/uTsAtd04lPx18PyxZnPfh3SLG3n9cE5cEzB Hxm0/ CGKdNv88dUlREe7iWmpQLwo4vgHe6vWbAuCpo/1zC3lfHbSnERLGlTsZXqYB1d/SSoYJmAUDdzpR8eh9 /NT3G rkBzxYB/jKkqH0TaPz1OSPkpsNp9O1u68qIr95+dh3QsQAcpGtWi8Kx+oQ28UFGP7bVuhi3yVqIZIpXu lcSrV +Jt5w3zdJeMvxPsBVBkrCk24diHV+KL4arjAcbBt2wcDvz4N8p6G6h1hebJtKkw3KQ6mKur7jBRCddQJ Orw48 L8UWHxGy9ozvQ1ZSF+LN+/9KdQzIxiTfvgMQHAN2wYwzdrhMtntKvq46wL5TG3a6ECUVIiyYdb/+uQON Iibbq vqUunK4Uvmz67zTEhlrhI+AH/YdjsRX6bG9RNYCDxNdmVU3AKITSsY35RqWC5yJmjO2tKMWXagdiOeyk Wms68 IJQrebWGXP7H56jTiAztggeFiRa0Kc5ZLcYxyw+RS8DyO7ASg8cS7alpA/M3wFvRkSf80HLgS88aHphW fddgy Wmo6/KRIbr9yJgV1/J5KqXiP1uA9D+E8Fg0pPwkL3rafHQ6mWR1pTfbjvQYe/ju0MA90PlgXKNDWP/EL HTzv/ 7R/R9aZsS8b1U2FmQ7a59Nhfrq027Th32HFuhFzHJR9l9p+x2U/umcsa2bXvQRuswc9gQhOlDsLKYO9h dt7wY zXgB9+RuKIr9BtxnRi6pMHtCairQELqa8qNRj2Ef4G76fgMr4G4/z00emB/UofBaaHXukDyOW02sfrJ1 8v9d+ tXYBwbiOUa8yrE4ZxR+PU0+x1EJ5jYu/dYR19mZPbr5O5IRw9wweuQqkno33UP/SsKP5SZu5Dxna+XsS i/Xua /H7ZRRb34juCQtAv9Ms1aU/820yAKgkAX5ud6vi6HVkhotfR1+ZeREXHPScIqaOQ0PRtrN2nIT35wTQw s6x+C goLn37fhxryE00hnPh8GmYSM5a/kB/7d9da8iTtoBWC+oq3CrgoyBv37XCBoHr0LChJoNU5415zHkCA0 FfdEY MnYh1Ym2D/xE9c6YEM4m5jSx2myl3qs+/oiY10bCJplZ/FcCa8iJb+KMNVVPOSB3Mg6Vr0AM1OBrECZP 396mJ /shmXeHZ7yYXcIwlwh2Q1L06QQ/cWj/BL4s+yhSzv2zamUs7Qoklqoxc939Fcoj59m4Gb20ktoALWqvR 7jB1E rRPlcbE65j/2gZ6zyS72FK8u2ywI2yJz+l7v7nkLUCV+T7dqe2Oa7JWyG4lau7zSnx6cDrPM/cvwODe9 2TWXE /kzLCAJBZxCC+WmbijGRNWKpY7AizbYp+GOQ77E3hdz2pwFvN+OGxpx5y9u1o/fZElH2c4ROvUXrzLP4 w6E7s D+e2l8X+BVrMnhXN0z7TBeoTmsXw4GRk0Nqjui2EmD0trdp8+YDc3C3oakxVrsDpj+1Y/QSeRr4lw5sf zsj/L PzAfJf021hckpKgHS64eHpjI53P+ZBD7NcrALS5PYkOqd4cTr28/JDo/Uyfvsu+7lv+EQPLFfOa51mVS 9w/OT ncRC5DW26dnKJoZAo54tVGAN3Nt7E8eH+W3A08F/2KfBhqjiivvE8eH5PKj+o/BSzGb+Ep/cOEqmXD7S u/kdL 7WD+Nee/qcQ39xv/cKK7VfWneXNYJU+8n6nuDWGUZRDaFYS5niWQLyyZDiXlsyy1cFScQotebLo/vIXO esWNn xCRX1xjXkE6ZWvYp3n+yuRxi1u/oEuC6N0LSilNAllx6exS+IEO1LDCD18Eag4VzzFw/SzNu5hHfTctz +9lW5 aM2of3rvQU2uoRfoBRxcyijt4yvInWgX+j2u1PsfFIjzkDKfX/yBE9l0d1x3rjT27a+zNwzOQtTATXX2 hofLv epjCfZmkJEgfNx4sMDavIi6w8x2ZgiuzAnjy3ct5SjR6U6Om2J84R7QVyyUHmz5Coyi5GJn+7i6ce4+y MfDOW T8G/iT7nUsuWUcLXMENLp+Y1/MWdOO//KKR57O/rQdZ+1CUTkKzQ2vE35Ldqz7/N/Yhf1yULcFwC3i4S /Br90 wQL22fjb+f++umtOznO29cUI9TxF+S2pNIoqj0tu3fb/ouNR+Gf2zaxa0i03mecZ2a/3qxaxeyw/SE/u Wj7N1 QFmh895f/jCJ2FgLYvjObcamOYu3hEhBWPF13a3RzSPeOu00wF58w8ZnnjfRpptuaDxTmUqfqPgS1QzW 1QDvW pWtf54+dpjvE/bFdXtLxjfoLK8ZvQqifH/mqbcIDFh/jQrE10cIr/1Sg/Bvyc/sAmH8CT+a220D4/ZSV TzKD9 8agK07u03/Gjjh+m4Ad+ZdHC1GOlg8Ce52WoP14+iwPBwE/Zkt+1wM2ka2PQo21Nv7NaHcPZ1lHAZv/F yI9KY TwcwTS+kotIl0Y+x+Ejhnd4vAVEbEdNvApBddC1MDaY/71cXVX+31IEMkjP8ykGmigtIG78TcvfrQOST 8/+sv 3O23Ma8v4TWPnnjXhGq20a/itncwD632YoLmgV0Wuc08hx2ctiw/7nlu6znN2ww5R8w3hUNwnPJbAv2X eQHuK 1ccpIjphktV7b5hbV/lRLwY3e4OcnM5dMG5fF8tSURUrD35nPgCrmbu/XUwR2MKYw8Wfo8Fg/AxbYNhB HkV0l ug39+LSYvNr4biEpPsflQdxI0mXo4I/N6oQVtBGlcpRtg/MClc27d1/JotKFkf3SK8S7tABxIz+9fcSG TsXwe am4uJ0sz1GFpWj2qEQt5bPF1aS3azVeMwXTWdTsieOZRYgp0OQPtLl97X6GkLG16ErKHrQ5+QQzCWBN7 PcLnX 44u2J+hoa54uGnQWJZngkSh6jE8jS18XFKkPjYgUk8UmMF+K+Fgln1bl7olIWqpaE+tpWtiJBNrFWgvo 3gb+N n/Nt9ecMxaSui2GlQg4cObhUDbe2ZgcaK57HhfFr6nmuGWVWMiQ2GJYxxeTitnRF6b7aMwihZk1gq4my rLQ8n sFRy6C7HtU2kghMCU6Am8ZBmXgr/Z4mpzzAN4/XD6m6YxPf2QcZ2z7E+SgpnU9KqDBISH0Yg3Y7dxmdj zq+HI /71c1gfhYz7BVtdpbaLhBO5vqC5ol3226B/Xzqw0Q1ZCFeGYH74JGGwOTQS0g+6Hbhhs53eKFt6iAzgB XHkV4 qXAHuUPXwjF84Io5UzYZCifT4Em3vEsJPAawSH2MRm26c5kcC+BjlX5CBSS3VwofGY/VgT+mvNm1s88J 2mBFw thP8k6xIHmsADjV7XOwlx/JO7zU86+7PD/Sh0GLRwXmKlkBAI79EtbAv/lba/v7WCa4XJx22wJuGolJY Zv3up /XVYA3Ur11rSPRR6mRg/JYydh2o9SlpiyYkaN+1F6FnN7rpxFmgux50dg1xy/111/qzeH10LzBsc1U3X oh3WU pL7Seq/OT/j24Yab78OJQBbe5hA+rZAW7QVcTOi7uO9U6LENoOps1cdU7HcG6QqENW4NvHam1y7z1kAH FgsDa b8a1us8rcUW2dkVw7+e5kot91nrtmN64B0ZsZRGLT8MiM/Ift7S/CmsdPTI8z/chPbXmAjlvrvF/g6+i +BOu4 A7kM5Ub0a2AG9yh/fmoQ48gxvg/Z/zSPx/4H9NR0/N2KmLpT42/wY+DNxP5us0BlTDAEqL3tf88KF66r 8/vZ3 ykp6Rzq7Q/klyK/qEnV4oK2LU9gOb3ZOTlKynle+zcZUCBLeJIegWT0O/23wZyk/sC/sDaH/AoCvYhIY 5Of3+ a2j/QlF7iE/8FqB/KZD07F5fTfd+sXuz9irzV5g4nLcXqmvFmREYw6VCDIlwgata9ijJJT8SJjGZQMGp ZTfBl tH+9vhuMKvhfwgCgP/mX2YX77/6vYldujpbXaRQyA//lqJ60jPZLajCLM/oPXl7582KNrWAqSVBpg5OU 9dte3 OuNbtL9jcaV/tZ/wI69zgQ9wuS0/UrqY8F1u2aEHaoqr8rSA++1T+9Ai/E2Fn49e3yg1gRrNuhtsh/rv 6+IVh 2LGl65j4A+EWz4dybqOoA9wc9F68/H9lwl3IQ2btppg7N0pcabrTYkLo4ZmM3WQRV1cFlDpFp/8BPVKM u1z8Y qtj/bu656th4/SjxjhxFrnffQSn15KMuo0cdF1a1mHhexj7WPlYZ93bUrAgt1/r+G0E6+i/hn6ei0Z3+ CX3Xx w/7MR6TWMBDd/dckJ+JR8l3hsA65jm+HuYs21d929u6Q/Bopmll8isC54M+OvY/bsDMj4d+V7M3Xzki/ KDpxo v09WLGpGXTd3lP86Uhx/HzYhCfrjKOLe/Os/s86B8B7j/0XM4xoYYcvR1O3UmoNuCW/+1NG1k/BTykzk /tZuO PxuwGHtx+xNmC/hl/rtL8/4bGloW/0DKmebTAg9//mjhuCp3FfaR5crlQbKVrlICU2wpxuavtrJqezbi h5F02 k4tAfUpx/edftOhlDTzT55Ef/+ASohEgio0SjV6kVq++D7sfyA/EG5Oa81r41rZ52u1n4wlhpma4uIfy Z7ceX 0JbMjkhXHTw26j0YJSSwYR33c37gbDO/rXkS20duAarMCvk2ie4AEBGTyM32wEc9ki/7eUYAyQbOcPH2 VZ/ty t+opn3Vcph0jUBErkjVM748c7+eNcT6xZJ1Q7WBJhH8ZikgA9TNYnowi/oHFt8KCEvi+epOMHg/HTRt9 /sXpF fomr+/Auj4ikSOSfwmbMtDziL5YHHDSGC//3o31jm3dZzSh9//jbwZ/b5W85ka0UY10Rf+2GsfblPTeH 5WTP/ yTIMdU672X35fUaQsMdMSC5DljDrp/Ko8mS8c2Rbb8KLXJSNqTI4T7UySpPW929On1P+2+zih90tRlwm p8o4M e6hiZ+4b1xZHK8C7L5ZLmT7wPWm1fnDI/FOVW8QatqsRIhBLeDacSiubCHI6qOiu/8N/9A6iTL2pLRYz Jjllr zxaNzmpDIXDKx5CS0l0dAGj31eDtFRWNQzY7MmpdIR15OBbjLHidbKqm8FQVUaL06b3hlEGL5wfuSgb8 ViN7u 2KipuPTwJhvHqbXILwR+j0IoqNXDZBdLK4QICFrIAnsZFNixmODdr5QUgUSnhoC6SnCVvXeS2Dtp+PsP cEaJD DAD0r/8o1/WFz806Nzzd+wy7W+wyIt9toS8Qq0oYwcimqy63eaM90zu8lbtCta6+9/JJE0cezx/Lk9Xt f53Jb qu/VlJkg3UO1h7x8ub6z+YSvsrphcj/rs8rdh/bx6/8Jg13aZoq885WY59oOb5y1qvv/96AE4ywJfTL4 9yo/i yjhUBT3ZYr292Ru2l3BD9IEnp3BjlDO/RP/D7B8tbWthNHOdcX7hz7OMQedJ/ZY4v3Pq39kehp2fEfAl 9XBiM 4OVVmYCXgTiqADs8MFuSuZVwXfQ/CL9t9eTMIEBfM43el+jV+93Xe01MCLrSdgBBq8zhp1OhFfz1vrSK oZO16 akIp15Fscm7/DMm9YC6tv6cfov9Ydtt0GDPvrX3pRpXcu5oZuuVZ/j222vlk1YeuWIwDpzjcdaZCiXz/ w3A4Q 7Sv5jB/C68VBgpxkoL67Klg7o95gE00clPjd+keWB4ydXwBBWBhPu1wPAxzUfU4piKxR9q94B5iM1cHj 8J3+l d/mHpjs2jk7QNcfE5R8EJft1yZAlkvzEon6HnpgHCYm+A73pmdxoAxDoUoRBhGLmC/n8ZetWn8B4KhHP m2k1N xMus6ufQ85REdLXta2z0SrAVgpxWEqm+nP6/Rr73CAZdeouSJl+8hzboBcakzk0z4bkzPevT3K2ju4qU phY6T /5Z1nBgJDLbLCMn8kHKbR8DpwHHQDdhzlYpyA672cQZwjmr8oXRMy3n8bslU/0htwUaKuPXUvBnHfdpw Wn4JO KH8xKGC0fK8KIK6twohnN+5QsJAq9jxzTd+tQAuPjkiK5RtPYVHTm0RJDoH3xStdzs6t3CTvmZ3nhm3d hI4fI vK56VdlJgzpJ8RtnA7/OYqc/JA7w1K8xrJIpwBfcGPtUGrfehhuYRGRXH2qPQF30eYO+tc9TV18leDzE T74+r bhvSjJ+t2OAIgT+EHBy6JDbRCU124Hi8dY4zlhH8QfYcprLPF+aFQq7qgOgV/29z71wglsG0Wa7ASHY/ nkur8 V/bu0wgJwwonw7L974q0HmbM/k8Q4pNxz7wUGvC4N+N/RRNVck2PoHp7hJh6MoVeuLqPFhX0X+luLBHy h0RXp d5hjhw4Y4vzefzfUCw/CqMh4ffk5j2wxZj++OQuI99pC9ttS3Hdnq2N83mmL6k92EU5OFZFgZcdBFUdb t7KT+ 7ez446MbE6B/m2xlu58g2gETY+IEcGa1muruMfhuwxM0JxJtkjMX3Ns/tx3/Gt0nMkaQ+UJtSnOjfrkq oYVN+ 6qR4XUK+klOMxftRcc1FRK0qm2rpk0SrFQ52vC0eqpA3eXTPb08HgobeGFl/gwoDM2SV98xrSp/5mTF+ cGhVE crtWrhO/AgsQNK4aCaBUY5/hcgH+N9NuesfJtudeDu4OD0P7uNo+fdWjoxSn1i5Zj0XPGKQ21E/mJ8MB Xa71T 8jA4xqtr0ae54vx0ve/Hi9dwN2Bak7C5TCzh389eTbNQz+naq0iFmZN3t4iG0/G48io07D11NyPgI+v0 b8oDM l+Rg/57/1YG9TTvfaVeThMibkj9wa/ss2Zt1KAHK43GV7yjYh2+OM9oQJh1Gtk50k8LE+YdgO46vj1Kf Gelacio/y4 dRuq9/tcjrl9SYAC53g92S/DEx/73Kini6V/NWd/IWdVsD+K/Dgxcywaj5WI3QO60Ou2i0MwU4I1tO9y 1zrih WGZ11aNgqx9GiZxLfN3LkH/fsL3Hb/I8dNBG/gJj1I9KdwoGr8DSep+ZHwOVp6qn/9RzIvBpeqYZmC8B HnK1i E9mF24igAxUo/c39RYBs9SF+C/2kd+UTXZuT/SArYf8JaWTzIf9T9Ww/1tmL7/4ob0/fEXfKJmD/bxN9 wn3Mb HL6onkS/+dtkcGRlOe1W0Teh/6/aWYs2NTf1K/vO49i14oBe9K6DOC8hlEwBXb/0OgqrjlTl+bee/x7a D3zue Ck7hWCfww2o881TSkaq1ca9VsXC6GwGwZmv2rU9C6TBTyjjcsYX2Pjwkv5xF6K0Bz5j0vDcS431qj6oz ECvgg HMT+sS2SoIxfCWdxR4Im8AA0R/kB/09MIrk76CI+bLkRZJETp6JEy10g/WthJ/hcLpZ/MtQzn5Ew8/HU Y6abe zZ2LW/n1pVhO6hY4v0n+2s/q822xh2nJRtdc2eI4P+hv6m7VuXak91jfjKieamHqt/52DBp3OLpG/uug 3pec1 ckdBx7EN/wxy/OMF8SwZrGjvFrLa5pJI/FQSCPue/MK5eo3bP1igW7J6UVoiMkfW4E2rve2BTzsc6G/Z kPXCX ztrRaVagI1JTSdRdG2Kf8x9vWnC7ykjuzitPFoMrWvwQ4IYrCsyVE9J71Wnc+T1c3ugyxuub3gCYtiUj iw2Nn jwz6nFOTs4CQ+/R69T+Om6C4swSNB5M02Q/EmlJ1dWhlM4G/p22RJcoVYmsU2dW3oeZlamdWFwa21gr9 Jzjp2 40OrEmmf8SH1FOk9b5Qbjmm8MrbN9sU59TWuLXy7mzujiPrjU/GtFM/wu5qso3q5iRY4/qq1ltQ0TVKa e/Kra +1uPm6BkzjikI23qASR0SYDS4N28n6uLiCVo4I2ohBDwFqeD4ky6T6XgCI+TyeemK5nZchIox0G4w3kh ROzTA e5XTR7vcYseg4j+JHBe62Es6e8yd/BBfJ/x8qWPlMG/1ZtRSy8wFbqh91geE/kCLZ2wB83X+/607V2Cj WTIBP d73vwVIDqV/c2OQ8+xudL9ymZ+BxY6v4vyTjc103AdmOpHsJj5cojmxeHSu3pFPz1JtGMGRhl+LNH9NX Eahs1 +7NzcFN3sJho2B/umv5Jcd3Ks+xu842c3/uIxCXyT/KI9pQ26owQmRS/srphcp/8CrT38k8dr0gHRK+y umc/m z7SGE59LtR+S/ZfxXTCW/Pjf3g9vw5ochmnTExDd0a8eLOvJE3CVAQ2jLrNGCj6IZ+qn01wYUwnWvMDE hjsqE 5MUZMxzHcFKtEaFcrHX9tXpLNIUAjxlQ3EflZx2nIr/H42qURHipnsdj+l4o/bSLL31t1+SA9Esfnvs/ TCvc3 dS08ZqIXO7RX04i30wHxV8n0FMIgxY5bAKcjZlw3POiV/4JZtGIlfnbO53x8NP4y+Gpj9KHVRKo1aIgF hsaB7 xJmXxFX5LQ9Gu7N4FbK48L2g3Lj5xCn3VjfphpSAqtEaopCh5uynimyV7OpjMOe/r4gtc5rljFV7aZsI PpIgS uUje0i/gzdkUWDKicpuIS4tl6giJTe6mVV6mMFat7J2NuS2Slj8CmG0B4+eyEXe3sHWUv5Fy4xTfROza /m/I7 tThzG/kmqrQiGoc15c6B5MSukmzT6Q++cbcVrT+ku0lcPThx9UJ217STfQvEVx9vPQg/X353jklJOtpM 8XvT3 6wSaAqNAoi1lUXlXMbVCZcsdMH0Ja07Wpg0jvmcjWPAa/zcrioZP+3s7w/WRY00am6brJFlxutMC6ws1 2Ujr4 yQ68wY5E0C/hOd+eL+VdmfpFrEbbQ/rh0/o3G3qrxY/fdrLONXT/vXrdclniPeWS3nB1zcZO/wqaypGb xz3fg W0Y7WVh5mSmoSI/HBmt403zfCt8o3+c0R/2cf74BFGi5dtJ+ope6sl/9+lxnsfqOVbU7qvxI/dPaHixj krrO/ 4eO6u1D00g//+j4xFR6Uk8iCk75up3jjAPiY/xyU2hcB+4Oox9w1aQjI7y56hEY+0OX68s3yhqyqqt2f QxOu1 4sf+O6hx9uw8aUBLqt8ThKVNVzXlCn3j5Rsl0Bw6Vc+72Z5MluqNyKV2vfzcHRAEY1YXawuhdfiiNpRj lXD14 hs1P4cXf9f95UzeLolJl4mljxdvB1wcVe1An/X3crYxEtxK3Z8Z7zr8XAlZ8sgywiyku5/yOya7EvmCD psbDJ C7roiHX4PeCG/gfxc+8Td4nwNcvFuOxSaEGzYTHq/IJ1j0emkeJ+p4BM22y9cZ4JKuf4BgAX2+YRcxfi ET73r FYboiL0LY1s55FMPec/83BYttL/9+bAWDuL3I9C/oaojwqqOug4eWR3ENr6F6YkNt5PdmwXI/tgmLt1D gkRtc w5PTj95p88k/5OtIshgZok80nO1r//vCPxfIasP950EPsJ04a/Hbap97iVt3icjGbUYsMkkoMwH45ZpI PmJhl uWND8/1yowzuxiNz8g1rUSw8+DVaDJ14XoRkkarPk835oC5v+2Uk4nVLBf/NfqD/vj8V/WfZioOeKXyK p7JOi sQ0AK9d5EkgUpfnAI3ydxH/eCrVqlV54JeH1k9T9qmBgriVqxyWgDkRmqXR83sk6A/7JX26AI88FEwF1 r+M9K uXfpnbT/sR/Q5K2IzERgu5Wlv6mD+ZtRM0yzYh85D/h3VcyOr4o0B+KXwz6/YEF+HRKDvYE69lt1ShUN GeCHI 1wdxVAY5VCiG+SMOeabPtRVg8GVKHR14E1NtNxm7g/qB2PV21wMpWvTm29u7WxO5LkrQ5xVP5Ynt7FAb VhviK WwJqgDV2g2bC6Hrgl7o48d/s1kdWakT5vTF0AdlQ3Oj9kb9U3UmbBQNdss9nwtNOBcjMkUnvYhRvHXfQ zGT7n tpGgtAZq3ELgWFcSzcy57RH13iV5dZa/B+FWx/syF45Yj/BLzR6QX7XWY1S2bjJKpgf/GAR23GWXYOhx dAfza jYYkVsE/Bh0Fm+ER8UbLRc/mR2Id2635iHepgxVxKi5jtGYPkpjnTR5/6fROjLV5Fg27BYwtE/aH/OqT iusXO uuVtP+B/MB/cd/sc/0Rjkt58VT4Vp42KW/OwC5O2uyl/xR4rm/hfF0cBs4NvjUhZG8IkLk+uw+4dmknw d8PD8 6CZY5qPmr9veE4WiGqUE2UjWC1j+r0Ib265hHN/Jdi1S6PaPm+M5m3b5gD/swGn8P+xCTEDeWrtBC06i z8lBu beQo7JtG+V4aPjMj1Yd1z8GcMdUj8QBofZuvYourZnMzh5bj7TJe7OHpmeePSRvn6/6OubAuTHaD/dory aH3dK TmyrC+FZCuPMtr9lyKvJ4WJ3vdOtHnj8/FcQK6wuKZcis4VnRf+K9KrwZezSqkM7lQVVGrv5rkwvjAZb h8dH2 sRV3NCA5LNML1qyRANZkEaU9OHSk0cF4up9HNF4uyWHu9plMh3/Q0QVHxAazcTN/Q9M+ipFMvFSnebgB zw22b QDxy1J9Yh513ZRg2csEfg33j13s7IgdL28amO063L2OzWj9yaOKFZZRSjl4b9bWNswg+ik7fkougrgYf KLmP1 pSA1zcXapKsfsWrIktNWRX0JcWPSIbrPe+LlywP5q7G0zUc7y6VeyoxIVA8Hxo2/Kk8KsE3Y63j4E0/K z7maT ZgoNgUmuH+YvdmzKr+u+jYxfiK+1Z13rL3urPSa+NpWf/mDTHJ8hqrsBey65W/jdf/Ga6uqgqB+bhib2 2Sefv /t7P/xlK4oMMo4Z8doad//9ybvtX/8ys+YO395KiYg/PiaVxteCe006rjGq6+rVGqT4ddzWzF4+wyfkf Dtyp/ qXT53XbG1ZtfAIKfaT2QOTgesRRFlrSzI+OJl0AK9vHx3WX+ZSzU8Nl/kgL1F8J1iedGKz+WiHkuFMf2 LSpwL odiqyzxeCZlx58BnJB+SGyaAnD/y+HGOuRTPyBw5ifVqojzk++9zBW6bgfoAeVN8lgkI/v7BoE0d43tK F+4RW 5QOofWkk+yMgfJCNUJUAmoFoSrQJ7cYMJOnWZnPFL5dgAwBSyF+n4a1MFdBkUZ+R6ynCDYe39bJ4qn3I SCnj5 0tpoRzs5LqxO10gAnBsMuFovyfJzPgDNZiyFSPfSODm+PGr2oNij4Hk9ubPrZ+bbujrse8r5vS5xv/Wk d+h2Q T/iODYAddvj8GXaaPr1mh2W54A6LJTsg9GTT9rGy9b9TdUZb/qyb3NjlM+/TTQgoKOf2T6GAmV5gJv2z rsWc1 xEu9j9aNOW2ciQ5mA6+3+BSO/upg3EoLnk/aM2j9ZGbp/MycZbhvUaK458giB/sB/yrMVUczhx0SgVuL 5Ea9p 3ODMYqM1EfET62VpShZrYg3xDrPR7kqP7Ddb/Tq8bJ3TaT9o2/PC2zwsAqCbG/zoCD+mNfCToolJTLt4 WgN+a fyXoLMIG/L14DeY/8RD6lQff0Z24QhU+9cQ4+QOn8nLntS/2AGF0dAQGRIM6J0d4E+4hIC1yrMteqYUO V83+z S4fM89Sif14ppUBuevaVK9F4xgMt974dQoR+1p8D6/Ovb5kJ+mq+Q3z/u5f2ikb+ebyvXfUv/t8+uf2y i/BvJ flV3gej/8j07lizjar4n2I6zAGd4CbpC0t9hJIUa8NvNX0HRcHkBh1wnKOGCzm/s41Dw1x/S9a6fdcA+ qlB9H huCRIkRLmxA8TESn4EVPOfJggDBgXerfMK6j42ok/cbB20UMyJfR+IY9YvPGmKdCkqW+DbFvOMDWg59x uKN0m Gclb9q2stxgG3D4gZ/op75CTsrkIW2lDR0llAAb7nh5V1U6Dd5bZuS/dZFWc8ZNW1Jma90zfd6Iw40G3 +viv6 jhc28JP3aj01+Xq7+wcu764s50NefrB+TC7onhXz9uOeJw9pTB6f1EVaMRrShp16odx+Op/K5m/f7q1q /6Jya sL0dWxiWvNu4oLi2Wd4npurr9VxO9lnZ/zb/UYdPIezcWLgd6FqwBiezE9Y/YZao77y/q+BL0renLTiu C6evv D4f5/ZQl/qHd5/JUVP6mBjm12UNIQrX+Y3HugYosmbvYX93b/beV21/k2Yglf+myFA9IJxJl6x/D/DMT +ke4N qDs0G3H6ePiacy+IT/v/2fv/ZWbNe74bcyt2gQaTj5lRiUD0Jo8OgtAl7R5EkRp0CqVqI0sLRVTXNmsX wFCIg z6UvGipMnnA+3W136KGaEZuyU1LUhOWSZwBZYpucPAVzEVSdGIj2d+pmDimoEQWDIVbQ+buZEBSttzw3 BruLX 00WypkpcCiy51ot018+4m3y02W7o6t4iwbrhdbm7myjscobaH+9VQev5a084/eN/7SV87CXrf2Pc9cuG cXKgH XapxXpq9+15+z9d1e6zi+VUT+S+Og57aP8TD6m/n2lR23xinwl0sooBpwYbsvFflP9+50FnMP+oz8hL9 VKpnG ccpUjzkKr0On6h2f7c2hy10Fzd1VqsRak9PrWZu+ml8gq/O6Anip+j+FA6DGvGl3i+bihZItgnCoRNt0 XN0m8 AuWaLpdhSDcQ8+z+1fyuB9Hf4XeHZnVo/lqqVoyN/o6kUSMMnyWX6YByl9iJDpi5qBbDS8cN4O9MKDCY XA0Rn /bAbyd0PcJXv76xzmLHWNHmhpVi2aNUzVdwTs8taFTpBtN8sWxsBJSjHO71mHdlYvtWG+tTyZAsmzJTN R1olf iJaFtQClqa8gB5K4iVdszjsv8uy2EwaulV+QxYiUI8mIX2y49KdJGwIDBmvBEdke+WLZsBM0ASZqBV5b Jpfy6 0Ry6oEKGY2WH3tOAPmg1ssf+H0fBgU/WjC1O8fUpe4y/4UVHS/Vd4U8NQ4Fg56Z9eygx5GxwzJ+cyaWz Sc2Q0 xMhx5sPAHL9kK/tXvH3ZJ3dvzBmen/wzCBAOHHDnTSj6NFNfFtszyW4CJE8MiRqm02ZPuBQLPJV4kyA9 nys87 8tS2+eBILEutLcuMCWz2TjyeCNbChv23yBc4+9dgft/BsrImGgh+E3MKKL3GhNo0AJm/mVdXUW9Mb5xL pP+vw o76ncuyTA7IGaH78govETlXJEn1yaU/qFllyDHrvmLGW8Qzi2WOC/FeoI25P00F0ykz7zXgG56x0Di0R /4X2M i3E6Aq5eaGRimT8s1g15nCizpp9S/bkh1N9adIS/wS8U+EvsxQgXMy8Zp7/EtlWp7nzR83jsI8+cim/v tn2sx Q4/fd3KxmZCHcpvcvqY3+f5+t6+HHLL/1hAXwIjR+y/NI5OdnCutJkk/nqPOo41Jkqld3o3UWoq+TC1s l/YPn JOJa7E1Sfvwr/7/hB4CM/qoUaO3I1rO0p/Tgx6bHYo+W10kz6e4/KL+EVrmSlLfJMyyRYgK1ove+z5Xe A6LI2 UUJPhUJmJZfQF9hSpAom1brG9wFFf2fN386k2+DCLy7VTqnltf5yL3lgry083CwqdgybXt+QFtbln1J3 d+q/y CAlephjyDg7x8urNYx2JXwFW70X/KTGl/lsde9lJI6c+e1j/dcZFPWfNhxdwYIfld/Q6i1u9o3oMODtJ tU70P PzEL9Sasa9wjR39z/e8UGAlwnXYBz+n0V+JiV9sBS5tdvM2b4ek1KwK5Xcrx7Ir/pgf2he4QX0bNCVdg ryV8/ ht4b/tTo0yDRQiSIhk+kvYs3KgyWhNe92yl293dg/LuwPwLkwuSF+g8T0I4S+G5y9DjjEic/nDEFw88M ld1r/ 7as7UCi0QcGOuz78pzp+lC2/Qrny27+31wamw6vwBLmnR2yeCZM/G9v/Vcz/vadc+BKPK5O2F37/pvbH /J76l EF+2SI/Z3/q5+EF9zbMQdl+A/NIgfSvb8yPkjq/ozMjw7gqaGiMy5m+B/Evyx1tXsuqj8j+G/U/iF/Om tjrTw A1PqU44t3c/Knir0ss/zFB/GEDs8oMooj3H+zBojL1CY0mBVC1qSabAIXYXXJcvJXp8Mr+qtXMLLKt1p cu6Qy nK2HMV+fGn+dz/NuMGF5lyZGnqvv/bdBHLgLwnr1yiHcvT/o6RlyMT/G0ycgnHgb1vd/b37Z5/tLtL+V ecTrL obI1W7zfbgpGvQ0N2bZn/mscW2GQ7ofC/Hn+soNvx2h07TKxSg059638AzYafPQrQIEC/YKf/gkCe9va /V9J3 6CYfbDJ2lR94vi/RvOKsYiS/c1+PlN+Y57vSgoYblKo5kc3I5ibwdw5YyIbzfNDUSNLxSwEHFEBPu00O tOx3V wnzxiCD1Pn59s3t/Qxl7T8gUmDp7b+D0eewMw6+6NnpPbd+F+KhagcP+qC3TjphhCwr8r6Sb7K8Yf+y7 n8+qX /QKe1tgo/T3dKtQVwCkbU1QWbZjVZKhCQAupw2ygUR0KHUYbZMHvPn7ifDspRq4/nxU/yxn9k8qAqIcL 2ILD8 DmDCLy/38OXi4UTbVKEcwR7m/B2ltaXT21cVroe+wSy/v9O5sTf1uSbnEb/WLD/xsAkBj+5tnCDRU0xx PD6EO Q4U4cxZOcv034hdi9GBSJmY3kqW10SkE7vGUiifXNtF1uCd1qK3cKnVxWyP58/j/u09w8U7wThm/LBlx G7eth tisb7Sb1LyCOBk4r+/PTiTDFhGm8B2eFuy7sR5IbtGrTsF7J9/lefEnw/ANGELO+213GKQwMlX2wJ6LH4a02 0TvWo YzCx9i9XRTHT4XzRX8MKwbtY+k2njwQ5tqrermB+Ov+yJy46/2OTrf5sl0rpz9pfWjAbr4AwkCPO1zij PGZsN ahaIke25IPKv4eQEaJ1NosboEPrcOCnXU1On6dLkRb1w7L+B6LyMVhwGnrYcRWkIx4v/vQrkP89+bvkN sUMXY 4pn96g42aLvCGW18Rwtsg/UcrnZFi7Tb9VJTSTkzlbHI99G0VYTbqn/3rNVIQ570mEq04eGE/5TNHgQM UoQi/ molLGGaAb5RMGar8RsoJxZ43SJNMp7bLkDgUNImJa6yvol3bqprorkbB1+2QPjJi7TEq40hVGNDG71q+ qxcvz h4ysx8M7uy7Pum2gHfy9+eJQwowz6yzy/2ymFNJD0FAAwv/QluTp+Lu9900PkdhT39IPyep9IrV9/2fL bE8hv NhOZPoWkoxHYIMNWIzs+eDNYAzdPxjf7N1emvf+0tQjaG8RE2+d9/ZzGU7eyz/vT+F/lEsK8hf7hp0/g +Qdt/ Iosmlv4PnMJ+/xUD4ZPb5xJ+Aua+DElV5AOZ+Q7UMIE7DVjAvvM6+EHfOA55F4rf3c1fIxl/Gt6PmYE+ HNJ5R erfhv/6/K/XS1opzX6h69z310nx6ClHcfpo3Pt7Q6VzE+ZH4Fvh/AjXNfkp1VI/Q3LhDSkkv/Y2LKzkj IFd5z lSs/xiyl++nTKz+VvsvyeQefCzRrHWiw/X386uZcoXz0c8wzKC1Qoaf+QN6sOn2+r/bz4M+5uD2KIzBZ v7PHj o/jJa2yB4F+GWJ/m3Yr3K1rWIduGiyBnjun0S+OqyzlQuuvOQrEa3Gb/K+AffRybc/dxO02qtU+Nn84d v4ySe tDJhDZ+FVjwqG0hxfY9DwWN5q3/SjGh/s7oVj7wGhhtq/j9Zm1kKbMEu/xim/XoZ4nY4u/DncJ2U6ENy Qen4E sxL15DDC7+0qI/KE1WPD5CujtbNSHwtn+L+PDmGe15tmTr6V6t9Lfp7LwR2mIAXq8VqGBNkvuz/rJN8d Pmfc1 ydrbltA4MqrwouLfONcC05xj+XMuxFllE/JKZ+Glp7S+nPFWU+UUV9uejm49KIgcHbpoZS554THq77PA jv9BN A5JF/a5GVuL8UYUiIP1GfsJCk5OPKx/bm+Z8LL5O7bmDBai9AEYBqjRY0oH1G4ejeEH01sdvrk8/m8tY Cc1Hn p3MT6WKQUEKnhNooh/TR9BTuAXf5rtv00px/wv17E70g5T+PSW+w/oHb36rCGYan+UnMhgZESNUSWMtM Z32kT t7l/8P4Vp+xzEETyY/cPegT2wbp7MBRurw4VqRF+/JwinTSFH1syG4EqYjl+kCjZ/UoZmd8R8X/PmN5b +6DpH 4bUm1zImA7rIOsV7/ND8DyorFjz6eCuzZCDttgVxmbxHbeP2uRKr1eZ7FgOHtas5tx/8jFTlnvOWnjRz 55Q1s LalA5lGTRE7s4HsKNJNU61LGYPPEURipYJ54ee8/wvd84Sajx4/G/q6Rn+HcVmD9qCp1TBl6juaVyKgI mPocu uJmrAeV5dBzdw1fxRY+SW6P+QG6/+t/tpkl6femAk4vw48/pbW6W5zdctJy1tv0T/cgwZk04bO0gHE04 xD3vP 7IzA8Z7cul2rV7Q/05vrM3mk7td+d78tw3i5qcj4b4coS/sz3i8nM6w5tcafnF2o3jr8qg5TK/96fvpm eTO5f cHyWTV3bk/EW/RFG/UjIEGvQS8r0pU+9pccwqnYTOe9r0LiArgyuZQJu16qVlxB7q52/fxH/C0FgTEUe pR36C ehaO5Zso0iX2B8v41hwi6cuJhfqkgNz5bp7PfPeykWaM48aUvBzVD7H00ydKBogXCiB/hQ9o9uVGEd50 42Xp3 pZ/yIbRv1UW883A2SZq2BJZHGmrAdq2ssnpnCpR1c52O1UzLan9U96n2qk2R+j94BtPR7Jzfm0bp3rsv pt3qV lXU90/frPxvxN+8BjuXQaboER6eCIj+q5Nq1b2nIT4//pvM/PH28Y/wIpPjA/q66y29SRh6w9iz8kxwO aXVyv B99n+RImZ6jNdHcLkGx6r+T4UhVwenfYWNTAoisVraz7bE85N1IL2hUjD4aOng/JZ14nx7SorZz/F8jt 33Hwt 3Vt+NFXb8+O+EuX6lcJ+GJfRPzh5JAKFxWQPNghixaqShzF+8ZvOv9/rq20mJ22uP34X50oX09fjjGjW +BwbT 3BpXZLfRbzOGyu/7+QZo0u8RxtejrVWaVV6rKByeA3sh8jQWljYR65j9vIhrvc9+ubcduzG/Gfs2RI/1 pyzvx 4y4/JyeEvg2rlUUXohc5aO4cEkG5g+nDvaMs2k52/KtRCOBA0HG5KWvdU/ewVah5+D2neNO43NkE6RrB OhcvL /MgQVn1tygWgTjFgyQXtzhb4jqEYztWP2V+Ct82wn4xZQeSnUaXvfZ171d7gO73rE2/Q0pyMPi8bc3X/ FyvYM IgnLnaOLPM4U9aEAMYu/bxfquQ1y604cfRk33K5m79IwvXQufuXi0z52l/Ruf9kb93w3e9R/CZ21Sjmg G1bnp 9zbv6min18k0PrGKd1TWosFA4ad/rRv+XLxsq5mhA3t1124q/Xif+Ej5CgP9pn1JgwsM95/xIcJCM0W/ mZutd C+jyFKQY946X7YCqA6yE/ovmvT7eog78XeaX0eQn+N/9281ov/kl8u6r4JY8aFsCL5rns2sHyvU68nGy Tz8b/ 4p2fuQ964yn4iSuw1ljsp022eR15XADd+3/BJ/M4598ewdeRqqs5SXo5m9X+SI9M1cidOlRX2zGA+Cs7 lN7Tx 06+Lfl/LvFw/UFXyN1jB3ozUdBULMXQmvn2Cr8v8eaYd5E/GT23VY/mRFbJfD24CCpeVntVIkvzlUpgG XoSRF y9EqPIZmPRgZe+XCTXMBSmPcZPx71dDPAw+dTF/dwW/m2p/m3tFoR2+M516TsQ88dOy+aKaIu3xIwvSD hGtP3 2Wgy0uw7AouNjcE4wJIEzi/Hn+SQ3NOlTHRg4Bk77u39/fmvWnJ/ZH/NB/1l7spjbVLO2Tb2ZWhJBGN5 /FTkj Bvrs13kwp06kXM1bCPx5gQCq9cqibmye5G/Y8cL9Q7lgQMH37CF+rynNA045PsutDV95D3Uq37nkHmiQ 8x5eM MCpSeLFPIgCL8knD4F8JOFPsXQmw398GDtB/g6FxIUJNha6Bn9/gF2Nywqb+UK4/jiNAOWmb2vzLZyQY zfZzJ OSz/FkPWs+dx876n7JnjpckBrcfOyvbliC99LEgFw8f6Lnoc7cO8+G0/EtCP8M56Z2I00+wWewm2tkJK V+w/F auP32D/Ek4UEAe8P18kH5s430M3gfgINz3fius5XEy4twP+9uh+Gk/xcaC+ORo0kSY5n+PpnLC0wHM+t OhTSP vU/lk9jhugmvw7jcucmOkrUsbVko9c/Re6H01mbc9YLMFqE6ev/OyIB5VQ//bo8aU+LUIo9X1X4Ot1GL Thom++ 5vGX64+ctcr4EtDsjnRzQqfrtdx42dT+GV1PG/+cSjpe7oUTB5li1pi+t3VL4s+dZA6uZtWiNQ1nGG3s DzNpt Nz63Wh/UiZmx1F064v57+IJYNMsEw13lfv2qymgt8gGg0MNL7QakgaDga3KgZcptZlHYx7DKRLI42F/V Tzh8d Ba1hjskT3wD3A+0zHwL66nV08Q18IxP5juJ73iYzzqGixQN+xPyxMjMvTiu/Q8K+Dypzu3sP+1R4m0D4 b/ve7 819c1Noy991hpS3hYd2dPCSdjdwu0JGozZHo/DwRTs6GVhPDif6SlK09cUJ3Kid/Snh2/4iW/h8LG/xb gbPy+ k8XOI0Q6gXFT1riqVNqF26yx1U/nKxxK2hd0WhO/YgPI6KcpZlMqX1R5PoFXsYTrXojtZQ7/qfICr5/u ET9v0 J8bv++aRfLX2UgU/LtcBNhJEaKM/6VIarS/gR31fd739qufK0s3I/5fcz6oqch5pJEVxelLWdcQ/LSvd ncp/p fznG3/AcdWkv995USgneIz6tR67Bdr/u+1l1+BD5lfHv1la6fQ/Jd0Ovt49Mso4ikVHG/7tts9s57Q4E ZBdWS LeZESZvlUpnse/5EKzZlgvmHAzPfkPH/JiJ3Ih0VHH8fX/2mKP4f/l9akK+James/OIojyQnFvJgJI98Vo 53fPy H2SPIoa7ZeCtKs6DutMJqnRq9bdPOa/5v8z68k0oliFZzSfsHDv9/nwtKn+mqvOoV+ie9z+nqn1EU6yx ueuxE d37+o90f+kx2svYox//EaGW72CU2brt7LswG3Sk3w/DF3FvHlYpi5Idqv81Wq9M/NP7k3/jieh/XKHq8 ltNdf xGZhW7OOFan6JY33ukdj189j0ECqX6C783/VVTza+aav+ajhp7g7Kf4e21Kjxxv2mh6vwIdwaXSGS/aq r5VVN d/1VTbX/VKPkaBA1OH2jchTJ/p6szf0WE24sqas8fYXU/bpmBb1fw4zlDCp3wtn3hu2sv7u+yu8f5qso 6/FZT 3f+optr+nhobA63LHa+q24+FPg1d2J+vo9p/qaaaXzXV/d2gamJ3a9eOh2Rg59ojz4ef0r+rpieo/bjm 9WfuX x4Y75803s3Oipf8k9ck962EN00gkr8b/gj1rIJeQ4uI4e7ED05+s3u3Y9amoe+qqba/hje6HSF0eu5Um f9STb X/Uk11/1xmqd7InAx7ump2d6vwKgVF/KrpCWp/t5g7y2gvC7J1esW1/KCanqD+48QT18Z/sx5gEaB8pe meP15 NT5D/Kmybmkv6DqF45ji/+kPU/Ydf8kaK15gnnb8/7BqR7ihgk0kiHrA+czXV/Nfc0weSUw0pudY4y/F V7PQJ Gn++1/Z3//ofG7W/rvvHlM+Vikouxc7fz8f5/jzS4YgSxT61qgWi+CIdI15XAMY40CRngy7VfhvqcXzC jbDef hC1HCN8/mMIf//Bt7d/6PwQdU6HoHJxU/0VbhL1/vgnwPzWP/7Z5P/YV0C3bQiktpV0DrSv5L/oQULKa q3SuW S/W/MqB0I5KiEf5C/RKRBjw6njLzRS/Tnf4ujYAu5iaxuSG92nwhm+5BNti1ulAhQR/KqpGD+dsDhC2e dNNb9 ujlieMiR6P278a4yf+VVTza+nXkUu6Qmhi/Jv/pf+F3/zhV+S4em9H3yR4krlsHoMG/g4vGIiloTb8vp 8aF9w 13dOl+JnOAgIev1/Gm879YVb7PI0heml38K/BBs6A7tIEg94Vb/Yd4oUahdi44aywz/4Rh+EERBmR/1x 33AjM aVPPXPp35hDjiZ99Ae+zPKGngUob9DYfmpSwAcegbZjSSEkEII0hZ4U6vnh78ePw9AaMHReCB4LgLbZt /Sg4K xBUrj3Wit0s+fmWUWLnglSB6SThqkFFiVCwWos+Y6JFbLCQGq2lBflUXNHgER/zSf3O2hZLKoh5mm7Zv YXAVZ ckPe97AKws9/6eUdRSUlcTuK61IfOQ9kwlq4/2UB+I+Z9eHLtD3funezM8q0ekcwg9Xmh/yV1RyIeZAF bO8v4 WTUbx3Vae/gdFfzCzjGkfJhi+fYViFQ+ZfC4ByWlM315futcqBHNFEJWR81tnNynYMN2RR+XYJvjMyq/ L6H9B KMxl056q76G2oyv4xjxCJ8SuqUcyH62t/vA/MkF9cbgWexapxGHHZzBw18Z98IQk5htgMct1Lj0sNb28 vMr7a 8JkCK/b3pYIL/Iv4nlF/75HwNV9YB+kTDg8HwMSMU8ygTkYDWZ02ZNJ275WIhz6QxjlnvSS3u3HJR/t4 nfI/7 XaH+H4T2FacLU5dv4Ygyy9Ali5mQfx/+NbX+8RN3DgsdiuSav35RdzPo09t3U5qyCw6B+qIT4lJK/5fj 5IfHz X3dfLm0Sy6Y9vc7Zxn4Ym6nnBxoEoRPV15kCIZ1qu11x/uBEPzaltw2H8bRA7/g97xE/0HWmmu0cJ2Ki B3x/h PwEx/Lr2faX+/sPpk3SEe/xm8iv/0ORH696bHe6qkDKcdr46QM+2DPBojqr/hgO+9blIX4+2p/tf4Do8 NiHkf o02V/3Frnz5q34w6C2PiqCFKL+HoMPNYypQuHny9Ymj7G0tPB/B45fB+6A8h18c3x7qAu/NIeLcp5Rf/ yJsj8 gc6OXUG+96KUP8usNC3eJbwpQ5hlOIabJXw/elF+fx+hHmu/F/offF/8I+K6zTm2uXqRZknxHL8Tb6/L jjKP9 QctbaH+R3/tfNjLH+m3NFwKL4pub+MV4UCW3h50uE5Ms9OrsC58x751xZlJ/Z5Bfy/QGPcDr0SwgibJP th+58 Jz8g5fmAoFHnv2xSEgToM7342pdo5ZTRCmT5CaH862toagjWVfKGYGuBWjhhQv7KtyH8icQ0x2HFwLi/ T1Z/G q09eiGi4y/haOLh/koIbhy1KoDNmiw/jPggyikWO17fTZ6cA7Y5nY5CXebcxY/i9LIc2Bm0vEQTpphL/ cEDYy 78RehRQ/4dKfV4ug9USTSxmdoJ/kkB42ts9So/42q4Urum0CE/NM86EcA6cLdKrMK+DyIafy+MK1X3Z3 xkwye fCM8vi25jLcChYc7Mag4UaRoS54V4facSTMRCNxxKnVkAjJKb3nSK4WhbRZ8/LDPPMDPnxR+VEgMc8L8 QIkGd A+2f8ygnTF/7wTrs/ewEDVUbLq0EL76nUzTEXH7UU+Qa1QcwtTy0yqRvqMfO/fM4rnublgk0m9O9L/Wc Jrsbw jZgv+z92IPnh7Qwc48t9fAeu55Pp0Di/eRn4f+iCF+AdVyRvs1GCJ3E5O0Cxk9VtaYk0Z5yQcI+EUiR6 dO3Ox J3mKV/PZvQ6dLwPOxqrxHBlnEnePNf86m/XM5j4D4QQK/zh8xeexKsejEI2bhk1gwhKFqrG/U4ueH/z/ xms7f rArkvtbVZ518TEYxd+o0d0TV13mene248ssuluQPUHK/daf5IGZJv5rrizUX92antf435fehbhJJC0Fw 85c1v gJYkthi2HJl6f8xBatt/s8/+PO/OHzlk//yxS/90z/5+rvf/fRnWr/09/5e44de+Nyv/vHHPvDPf++// Zm//3 f+i3/6qx/96AtPs/dtn74ex/vtmefvw/+avlXV5VcXvz6uL71HoVwQxi69FnIqv/uHP/BPfvW/+ugLL9 DpNp7 +PKhht0eWsAkj/djHXnjhhfe+7/dMPrnkQkoPj32jYu/4iid5vXj/+UH69og2lnivuRarU/tpE37Pr4m YazY/ +/yHX/C+xv7z//9b9qWj2niesCd1AwM7zku3SbVYeOjFI598j+VX65Kq+VVTza+fnp5TGDZvddzgCeE0 qqnmV 053a3pa+VVTza+axy6HFEYadxxyNfQ0kuonD091q3q4M/zWiIZdiJS/mu6ttbDQYpiqJZS0yrpl9Hy9H nZjjl 9rWBx+SA/ayzd+EjSBRbc4uq0v3DrN5EwLnhLK85PLsuVl7sKwRsyHVgPYPbZdThhym/HjpEebcn1Z6N XLEwJ O89ZntxpUZkkm8axaHYFI93pcpau8Wuz2IvmpqXNw+wsnsqIetvl0rF3MD6rvynvQgi5sEE9Qc1lxV84 TcYS0 PH3iwocjXc+X89LkC3lIz17N/FPZWBq1aSs+t4QfbWtjKAo+nr61Lgy3EFvKjDT3iTsR5ThA7zq2MbaC xtXFH H0TgHiQMjFz3uIGeh9Jv+o2AKYr226gG+BmmCiBD4XMQHjH5WmHq4xSQkA7u5BoanGtf+KH7QsT9IOCt rLHky d4bnAupq1qUxaFeEoAVqYPl+EIf/T6M6xxmdGdW1HtFmhNiUgGCnaPMt8x49k2+dwanuYZfRV/WjSPqD xz4qc 5hRQwPPJXPFw7Z4LHnlgu6tBF0vJef+gi8EwS8Ozs8Muj/PgVyhY8o9vdKa+Bb3j3JdWXUpCZmbN56Di gc8Wa erHxzKCfGi+3b/jp5RjAizd6KiuOHkaRFcuymvX3q8L0WXSp7uBdwypyp1MqiuAfNrSjsqhc0oxSjnwB v8BXb bPID+GTKRoAnYEtMQHPk71v+V+xPv6jjBiKr9vJ4cq15dr4hw7r4upHZrrkrZjb8QRdK0EOzJ/HahyfW 1oIVY Dll1p+LToMX/LiShyOVf8Z7yobB2qQYr6ukqEWKooB1jfccr5Ctp95DeEwp0/RCwikqdiCmccwzPc8/Z AD2WL f0iBe3wRV+uclqPUMT5tzI3luvWbkjbW/gVsbwA8F3ifms9LSe2ne16MvepsaHdse4aW/Zx+WKs9Z352 L7zFO 0XNOVxbdD9h9YDvJB7CbvVuH/JTsuPajh/xc+7DwlV6SqNLtFiGL19DRTu5R/US3p/nX/G6NxsIFLjpg ocOkZ XAu6vQmxb2uTlZFqENYoEEX+xTiwY2u4oRAP+jrBw/PUkQu3xgSaZ8bpLHGROR2wszlIk5eqWH7D2Tri lMFP7 UYPxfhT8noRYupnvH5NUe3pFXB9h9C/AHVzuO1v79AE2aO7YAi1MOwThgH+J151Ftr/Cp2WDLm7z4fqN 9sPdj dR9US3x2UdY+N+HPYdng9Ia9WvS40KeyGIB/00LkkvFggQ8j9VC70kkuwHm+CCPb90g6QolKI+HEs/rC +/QHg n9Zj7rzU+9vP/u2bYD4Mt6+YiJA2zclp+9727CdB8jp/Lvs0mJdT+P8cDW3NwJ73rc6P5qpiDQ77lf2A P/YM8 dYyfBYUL9Wm3uMv3KHDBh0b6qsIGoxiI+M5WrQ/PK9stgTnS1+OjEF+l+o+ovPHy3ZmuQZ3OBEl3+o/T s+zSf 8YzU1BwF+Xz/Yk6qqleBpZ00mQ4bS08/iRFSG/3ZX8gJJbIj1szWj71IPJ6AsbExp1sxm+TnXTOfaXIb +y/kP /r+S2hQbq34l269xxiGLSN7m+ivj5c/w+fH38/Thq78uoqG5i/iq1zwrCQEVovgTGa1XnS/Sf5/i58ou 18aT9 dX6U0nMlO3j1K3V65CxuRR9HkZjJRZ9R/cyi/uts2efjcQn80QhO+iwtAopiMXxklflBs6Nwb67SW5uj CT+s5 T4614FIKezTy+PXL/n5S/zv7EdhPnIYPVtiJ927dKy7zwLxWWB/5FgyxGQlmplY8SA9WUozd1uol9HaQ /uQ62 rivxiOrkZu/VOxdVOuagNeuLa2rXvrH86OUdgJV12jeT12QC640XXOWfDtcdu0wIbeehqFKcGdf8U+bW p/15W nXoUm+gKwfkyl04UMs/8TqJj84SR2YNJ/PJZT0oXHZpM2TiScWoqEWYTgvMWjpJgL/Mhuy3amHetioDi GVmW5 F+GpxT6KeBn54B+A6vUtzaV68j9Lzr6z04lnL96+XP4o5pR8xGHkGW6LC7z/Xr659h9HGmei8ZBEmYFQ /6mg8 a909/vYS+yRb7hg7C56vcF7jc5C5K5mDHndOMZGz9R8GOP9QkIrJhVfSRk95U3sSVnc4fwIjvMmR2LrP 9CumT 1EJ5oY62NAgL8Oer+yP6n0jak2V/SO8g+wV59av/+AW0azh9kUO50/x5aD+F1q+VRFPM86wej1A1UsV+ xm8zP 9X+dzRAlOsevYF1DAa8NupQQ7hShG4LG9iKn87qndy66C5/ic+NmfaU1+2P5mQvkTreWdVA1QXyvHz0A s0dPP 8o2Pv+HReyWp0fU3iytuJjhO/OzNnxbAfh+iV+r8MlLI3c3MC6yyAI3aJNDqJljAtn/ovGnMqtWgdEqt HD0Jc KMtLeGlz/apq4aR1VI1jaT2/N9HPDJ4OT1fXtfqKV//GFpq+6f+MFTvX++Ia+u7X//osidAVbe71xEoR JWGRo XstpZz9Nk0Ont0YMHmAymcWyylw1xv+xIcYk/tO1+XWN+dnFI++u/ZJS7CrVE8KviCny4g95PfLr+75l n+7d8 34SuvnmYTM7ZN5bEqamuEAAwMWiRzC/7Uakhoq1S5+WSC1dhqFj24e/MN4ZdTXqzHcxyFqtbz97NhPXs UuFS+ ytRyyelRHuFt6Jpy+Z52a0TdLJ55G0b2+QeHhqEqqoX1csygybICX2zPuJYGmLo1uN6AG7C+yYS4hgXu oIsfZ rVuC7+7heenMkD4vxouL995n7glo2+igPe3uqpVDU6CR7pb9Wd7Z+KX2ww6uhbabXRmbl3CsW31D92UY wsnP/ lxn7w47nZ0Rijq/HYhlzBmuXsQ3r/o6hf/A6S+7o63f/QrfmrgNF9F37B3jy+nmeT5qvCL5pgjLbA/nf PWU7t l0ryLSMIcYIa3fO0fKR/zr/KOHQzSFswlv5xt2+z5sCkw2EUShtQN17tPZreZbDpgTJcaSccIwxErRsK 7THf9 h3WrnGmEPKgvfx9JjEvJGpZJW5fjLK4bw22IWVSA+ZWEjFzW5JeXXFmagR32wxPNfXaR6zSm9/ss4hcZ uf78t KPwapztur7r74p9sZhc55hzWXnT/yYkWiI/qVPaBVNQhOB7c1ckHFOyST6eam+H/OTPpwI/ZvZjd5Myx 0zvY/ kFpQ//Xr9t8IkZFShfsy5TBCZZHlx1Zzc1wdTG+ZjF3kaxuU+w2bkF3DeolujFyI/pRClzx31AOk9qcJ /szyd On/tjkg5xOG1n6V6Ml+X43py0uB9X5mUXC7tDS3qWpv9fK1Ai8gHKv4TelofNkA22e/mMGop1y/xGsRq 8Xtqf 8SHTQPsQnZl8piwcPk+Eh0fsmHo+JtgsHD0eXYMorjD5wQ6VgYqTn6QbZvjZVTYUC7JtD/Ze9Fs3zWu+ dEF+W Nx2iUW81E6lw4T6X3FjeDH/GbQhl8N/IlkD+Y7pDbF069mr+fX44a4Pnp+0aflxiHyzY+0vyCgGMaZIR JU/IP /Q6lyeA2AW3qC2WA8uei8JI5+mNu08R/OTpXbg2ygwBaON29lF+d1ao6GzagzwscS6im7xGnk0TO1+0C 0XKpC f1fKcSJF/OWfkI2qha71hqfd2jyK3pwRIqn/J2yyY5s8wqvjZr4dnzy0P8WatcCmeD83PbmcL87USfhS cXcT+ xhAcHxO/arF2s7qsBpQxnlm5dW+j/6J27z2/1yuNwBWyxLSD3Mcd/btbHhm1p/ec/x3FoWo22xf51lUP 1BrLb /PvX/F65HB2e/RcVds9Xm8f2lrHsEfwu+3bQMReHM9oJUz/UubitjppL5yPx92wwhH26woET9OXVsjm5 lPNBe YrZW6evZHolOIF/GgV7kV+usJ1qcn487GL/PRFxq/S3CNq3mXkUQW8ktd+p+WgLL+WH7a/OCdO2s3TTq u7Lrx f1II76dFy03dvuk5eUFPXb0Y5J/MtYbh+tuZMpyO83bRV/vcUreuAPOvW07/3Nc7PgraHb+x2Yc6qmsl 7xy+i 4A+eoodsPMYe+Fp3XG1nifBkqbi2Xe/4jSDfS3Fxp37zj/cdNOsfy02dLmueN9o8Yrm4QaSHa/wOiZ9M PcWx8 uoMP0udzFYPinNRna1EYH5etka2maxizwu/sxgz6BO6qRxotzL8K61TM/fKT+KRzf36G+LKT+POquZXT TW/al qr/qt1rmp+0NKC900iih393gS5hft+5YYK66du+DKQIW6xadz/arqA/d3vm+NO6CMzu6AidJxZU+1PsW YqWjs HVn3s4kiEv3ebXGnQiJGpS7s5a1Rf8nnMS/bcQq9cdqSNPgoVUaVn7Ga277gP24uY1z+HZbM5CY0CXbF 3gDYE gyH+N0Pljxp73nIOYla/Nyd5fwvZ+G2S4t9zO+O/RqDIdiPhg2GO6sVZ6xl85Obngn0hFAPB26+CzpZf I0804 vplafkdw/FWuc9o85c1HRkR/V2cBfOZ4lcZkYRpAJJ+ZNtv5eA/KC4oe0riMjTz/cS2RmiILCI/hzDI/ Jrfgp vqDhv1cdn/em/C73jg1+2Tyhqf19PlUTqBJubxR4D3DuFl/WCC+TUqvJ4qF8dS8+ZqMymkGirnT8qChi 0ZPrW /QW1/C1pW/1gGpUrGm2L74JErJQVM/Am2tL8o/fCF+tImm0Aoo/98ht+yBw0LDqC/W37Mt/rAzIXB2dR /B8Oa 34KW+s/vfgH6jJoMM3ztRfYNHe6BJm7/vyp8aOJvjlzL2BH+AwpAr/ktaBm/KnUiyf4ZFQX/L2RShm4E wdHZq vbRjjejt0Pv+eUU/Gc3zl1CPclLq/z7h6c5eLsa/iEqTLPbh1Nu0wiLoZ091ZsCm6J7ZmgAnaKrx6Hn2 uKtXW iOpCSICyWOmz48uIL8t9X6TzhUdeeO0HSM8PQbvJuYSBuOd5wAzis350y8be8o0EK2Uj7/oJrq+S/VVP Orppp hAnD9mphsB295u9gs/Fqsis2ixcg6o7nq/pifxe9qzj6aknq+1bSy/V9WX7quRe1266/f3xZD5X88ay/ Ad+lL f3LchT/748G3/3dp/gR+7fTFdY/nL79BT6MT43El1HfLSGBh93NzUbTkYrWq7aM2jPczByd3UvHb7ohK B7qZM n2s49uuI2puA9qkKt8YNLvYDkCLO/OnTV1M3oOAi53/ybulI1Vd/nd75jMtQ8CfcPR+BUD4WO6fjhtu3 JL7Rw +hpIGAPF1DK04dBzQEWgsE0kBi8yDnbPj/94HY10kIw3YZ81h3SFqSA7NWyb7r0rvE7t4cBmF/nDdyD+ 1PRMZ VNTp0xvRdlHDWiKKwPSPCMO2m7RH2oPo5+G4T9AM44y1spXtJOhFqv6SYEJU+jeQDTJJpTv1FerKy1VC eqZbc f4M+NjyrIy3Vd2VYit6JRsP7PClWZaZAKHl5fwsprjLHEn8hD+qniFeOqBXXIXB85Q3kKTLShxEVcnbZ 3x3RW Y3oUZiTJhs/ifzpdTpDPu3UNaLVVE6sNFiAqX7w8aACwvKCaOHn/JYT4zUzTsQirDM9jyrCuDYwIS643 NQVXq 3Eoc9tuFf+a0yAcr2UeNhm+Uo8t7VWKz2WoP1/dtFTGWORasr2brqHJI7ZT9vcVXZdejZ04Fm9V/zO2t /I2V8 Bp65Y3MfF/VW7QfVaIPzgLW0D13ITkklZZB/2k9Npr7PdcNI4hRiyFXIhYQqkFzffdaoC04NmMpL/Izg 2r03t 648PQROVHtVTmotQWXGfrE2Fo8z4Hbr+EVWD4TO0/YxvK9UB+CyyFmEdzeGTYim6dDoVBL1QmbF3z8HT 5ZcSj +9M+c1gvbyrf/yM+OVPh+O1qv4Ueg65qdl7b2PlSbk3ldkPXmJdUxPMb/vw13G4irqY4yvH46Iy8BpDP zW0Sa bk6/6kNXcapDdbe7lareBUFESspmk8zV5rbFBH/MKi/DXDhRu1lVq7diEuytZWIRESBWdY8By/KfKTJb 9BcrS +/fWCKT/Xpu5w6Y1m4Q/Ju29/nUUG0XtqLH+E+LP2IIrnCmIWa8udF9H+/defsT/kymNnYpzJzLk985k H/s76 QnH3BSZshncIP920UWxqH5yIuhW3+42PQOIF/ARoooX2Xfc2diYVjhy6k/FhH/rHwRV2T3nDEjCbIsoD qNuL/ IqRQ0nwS1rPhwQBCwINGgXl+xHiA/QhU6kdoG66K5YeAQ5Pvy7F6454W3cxuK5p+VFhPhxgBywIUsZL+ 4NkxN c9ajYm/6hDu2qoiuHVO8E4esaHr+WrI9oHS39h+Sjmtx6N90Kkx4XvHeShZoMY/4/Q8cP+R6MM4p0cvp 3YzUt 3/CjJ9wK/T9FhCpr3mOL+je+sDrtqU/rAsGYMPdiyDfmXT76/m2i+0jFo08L8XedFgc8Zpvp2L2Lu/d8 7sjTV Boz3iVGgo+9kGb8Y+HKTmr5z/KecN4ncz4c9se61jruJ3zqi+7vT/Bfw12INWP7i6WafRadTjowAyf1O IdjWk nfgrHrUeX7R46KP1kmeWW5xaTkIuubur6gocd+y/DINQD3Eq6p1iVLXHkUXOKOHYGp5B/TV2ibTHzt5l Fx1ZE Rs1u5/QZLGOycf0aRmjKYw3/NsbQ6LFv0HkdxVm/Fru8EMzx/7igqd6ME9XFElgA4/feJp5n0YnmhS7l kH+qe zUB5kXi1TTDwfLcBNlaCd/XvLkpSjGvcg14VBcvGaTf0/1WCHn6hYUo5Saeo/+dxd3LnL2kRDcUoAz6O 8QOQ+ bBf9tRXJt7e54m0zzEgRTRZw/4mlrWN2A86UjTcUymHTo8tHoGIxkqPUfP5fL27/aEkfrgZF38xdta58 1fyqq eZXTTW/uzd2JOGQt4ujczZF77aerb51SwW2V368s6azlz/DnuRVNZyXC94GYtN/Xq3gQbgp7ztFXbgB0 rzMzc k22VTMmfjjY54X+X4CMSMg8T0VARDeUgEDkFGpZJSirlJWqBfo3If2MyDHP+Xrj/utB/vV9ano2fW41O D5iX1 D/XW9va5yhIyOlt9WWukwbeI+LQ2++9O8djj1wD/jBPC1/JWIkmXte+2dfAqRsjjKyCGZNpTHhn0yC dvyEE Q+nJsdCt9fFtfQlRq+4A0uSoyAaGd2piwYmjtCoRd0/HhiuKNggrHfWwzKh/RSa21zdK8YeR+hSXs6UA iF/yT ufYm19mGsNzx8wzhR6odBcRyj78Pk+R35jLXLX8UuWjDvvaM2otcaxFMePqM/yye2F/y+I/sX0M1IiLI OuAaA o4MN7I4bduQxs/isror2+VW14E0Kc8vjNnX0+yCKBC+yN+VT5bUiRbQdW6HlfqVm0MTyfRofBee+zrRn XW/sa Cv8H5fRN64nhL5RkOmMj5waalGDzfbrrVYthQ4VnU6ed/DbBQXH2N2qK13do/axsgF6BnhhG+aI1FIz1 p9ss1 sPwE/upkeCS7xsElNx/6g2h/pIMESTwGz1Ypw+IMAMACHUp4bxXu9A3mSp/uNr+g4elQ5k27HjzGmDFC wb5Eb ZL7iQuyY0Uk6cIQEE9EG350E455HoxGM1y+FO8vcTFwtmeQaFa4MT4whiomBOrjkI5j2Y0Ui1e6bs5rH G7GJN ag7inK1yEo8ma5pa29BcmPc7fHR18m9ofed4eiho/6L+jvdsG+VW4MDe8YK8uz/3FjZPc7089oLu+QGQ nWf7b 8Eup/DMYhfZZsit/N3LuAOr340T/QGvbbZe9qtI95kf/J7crutu32egwJdQ0a+Yknfi1nmEC9/FZMRB5 P7W94 z/gNS/omehjJyWcx2mx0t0AzYHf/HUAcU/KS+Y9W8a2EMzkQKcVvPHeH6XPTnNMEpJqZNV4FkmlbifeM PqZmf xLMv5mNs5Qx93b0a4lW1vZsfjeIfhsz4/yvLJpaSc7i5ChSYjQ4/Ahb0URybP98jigK7Ez/w/zO2l/+g Dt+0P RDM7PzZ+fsQbjS1TmRTqdYzor33ZWRHlAR85ZVDlevDfAO8yvxWbmOa89GT/uofE2Vigy70TN/bzf57v 8o4WN leNf7Z9o+6OEo9gWuceSwXm5/oJrq+ZADFDukXlY8evfhM102b1ux+VVTza+hrl7JUOFmdhpqAcQ2vii mV033 pf+ly2z57h0J90kX9dsYDgh1m/W0gp/jlkS2tkraN+UTTdCBnXyGvLPg5YGl6E2F5ag+6HltUL2oV9Bd +3t2L GMZVBkb4Oo8CWbW55LEuNnfP+JalA0dseBYnooN/Da4+AkdszoR3P6ZA4Vnuj677HOctBx5chk66tiQK QSdUX /63YkXK5wjF+zE7Ng8fpAIXtTtxAo2N2gpNixaLMlpmP3L1/DxR0zgSwEy9y2dOdn/jxZdgB/Lj2JfTw yUuwW 2YCL8sc/D1V0VKAbq1l+6WjL/CKCEAH0KUSmbdhuS5aon617vswWKVHX/kbJ0neDlrkH5wtxs7886A/m RIT6S S75/ATL91t9izN2OOhd5e9leyi7Bo4yuSWK+dE2jH71/4cjAq6Tejt3zG2eVFRzbyIA7ZukVzhJk5R6T VOAqz AhigqCEvxj8q0W0YJRfoE3QYPXAwq/Z3pTo7Lk+IYQm2lJsbYSluy/6uX83q+E7LvCWVE98bb6ypx0E2 pPDzf LRsWS5e7mI6K+0T893I0lkE4tz4/Ovamdki0S5EO1jsi8uQ6pPk2zRQxVY46j3g/nuZJF6XS5afIOoVG ob3d3 oDstqYcuQcg3PwGuihs4KSPSsAEm34ep8eb9QcR1+dJmY+ciSm/La2KsrbeUyy6llIGtR7hRCrDD+Pk/ 2l0Po +P0mUlhDqlKf1butx2lhB9o4xL7njILvA0/jma8u6OY/padwQvUiK5E+Lb/jqyq/NqYamz4k2rotygJn TYT8j gp+k/K5ANP8biDl+Eyxal1pjA7er0CBkdeOs//RW8dBjgl6K+0N+y3iMxntdAoS9uXJeIkL1b5cEpLzF GJ+Tu wNFROfQDFkliu4l9l1J65x2ma6p3A5gtYy1Z9rSso5yKEYtMKfjby25xKB4L0loEeOJrgdmr43Uh7Eqm a1o5t WPX+jmmp+1XRf5r/scBj7g6iu/ewbcb3qcoeYB55eajr8m5oghuSUi69qawqXY99ttcg2y5pX2VC0/3g UU57E KduSVNMOpUuShi8f9FXF+r+YWe3pf2KeSeyvxrUoaIhKz7D7bCtkzurOKoCE2juLJ/gsffDn0fxPKfYt u38kU mjG+/4jEu7V2P2d0chDGV0d3iM5phHcNrfSV0VuUVaJjfGvsyN1jUlluHKf6tE5DixzAt+GgY3bkd+3/ BJa// enl8FL7CrsXoq9ySo9tlUgD/JTyA+1evkWPbW5fpopFnBIGmFk4HVPt/CLOah9RGDK4C7gPpxQacSNT2 SQ4SP RDdRutwdr5OuOetwvr9hOJHjjswuvp63raeg2dIcWE2Oud5QW50tC/PORYyHr4uSZi592FXmFMdt+/7z QL8kU G/WnK+zxpnQOv+KuHUJ5btk/VR42E8GIIDG2RLhk8Zs/xp7IvKnqGuKtGkhuSQ7jJ6G7AUUb50W5ujvp E1Hk6 Ciu43NbskvuInKxJnGtFF+tzFVW9BDfluYe521PMMATRXka8LRcVlq/cZ4InsE6V04ZAMTRkHZvXrJhN hLzCi kA+aOj9KrItV+FQBFohO1tB1LaQ4c7WDdizi+UJdrHkQ3HA7B7PQSDx3l5yuPRSwxxriJE4i2iNebCuG n/Nxr Lho776wNB8IyM+zl+QQV+RMC1rKf/gNjC0PJfdDhyaH43i330f1iSe+ZGIij5a/I7MgU/tmohxbe6Ls8 Nu9OR WFv3VuqkW67gsE04KXS1ucHM4P+HfZfRJIxte7o/ZNXke99J9xA/9fR1DAtceiE3cf1XBPj5p28mdsv1 1fgBE 91Tyvmpx63jQan2U0lyj1agsxhdPV8AP3jJERz9u7Qh3u5E5v8yuBaANzWmMfz0F+YyqK7Vbq/RSBE/p Dic50 cB1Tm//FEHEAxm+WB097gZ9vWnaZX+7Lg8SW9zQ/YHSKJuplRru0Chhpjuuhjb/8BV4BM2OTBlQZ3Pz2 /xS36 Cyi/3wiqLc7DxPKPk+TOE1prHdcbfavmqm2VfuBHAiUCmZ6D5TBaWBXw96Hio5Rp+mRaxrtD/SCEcQzK 2OxjS cppcyyS/rt9D9cp9ckIqSw4XDbSMoAd9Xdi0cfnYuJcRlZVH73sXrg1YH6YC36io6/N5RUai4Xw+JcyW r8S98 F/o/iw1JJEX8xTSlPO4ujTyT/jdhXo6agU0Qe2BC12VCgGE666zt4X0UYoMu4zaLzM29B7TKeb0aUk1C Sci+5 NN/OZucYCyeLkiBF5s//j/CjVZVI6zJo9TropBZwBE1e1wL8wY/+JoJ70JxnHm0aEWKEZ2Pm2i3c9Wm+ fsbr/ q+QfVVM8/qKba/cfgno4asb0oygw+7AAW54mb3j+swi8KTFWnmbmwOd25geD+nqOtA0tC0ds9x7RE6gl cy3pL 7I5WQ5mpinQrxFsYIeVY1DhDB47s/W6VnnIAIwVuNEo5LtnAXaesUk1MPfl2uqkCFeY9Jh62y+7ZNJKI iUgUa GCzyWJ4N1qcuwYsZfLklKS/OGFthyZTl/+EfRI/bUIb//Adjya+K3dc5osKDfQCf7P5qG74Ld0Vt5xUH nPyH/ NqFASwsLOt2Ral1cmb7lm1uVp8/QqUnlfEyjFR1Kyuq86eKpgAJ/EbZUZyamKu8Gr4B2DeljHy6AIwM1 t9xoN minvYpbFaD/L54ZyYxJSo/DQanIYboxzKuytpJp1VdZocD37yTpZz++nZhIwooberqO2vk3nvXW835vP FP4X8 8R3azoetZWU49jjR90Dn2BkNAx6/MXBU5InAUkbYFAfWe7F2qR/GEcJouUA7cFz0Tw7G7iioUGmxSw9b hlzbo XHLL+zEvKR96e3Vvz3R3HunwWW1ymdJzhL0a7lwmUtwyb5854N3+E/vnG765ozTHyVeOrs4lqUt4+t8x GZx/c 77ZPPboqm/L2txddQQ5h2Uijemn5u2aD+xtAuZvPUmAZdM9dIn6/xcZtLMOLwV74lWF/hwnjSOST7ZWF H72Qn sZJ0UnJnPjQ+KzrHhjp/QDe7BVFWDwi6HehI+Eag24MTsbhnJA3sbQK5LaBNFfsTzxFfjd+SV7mhjniO CwI07 ateifHeOQD9CnTZ1JGIkxqMV/TIdrj7mY/axR/eAwxNbWYLlNzTyQAdjCPFbRxBE+pQxOswC2SYD19/G thnpQ tzBNCQ2ahmo0PyCp+XyOZo0Zl4h352fP/iHpxldUZ5DNQ5x3UthxaWd570ViRQCLqndfAqBvxY/tLYQ+ AnxE8 dI3pdyqY+CF01qPTZW2G85oID0U4OCbmsCu2gWYkim/DAr54B7WT4cXFa7JmzU8PaJGr5w9KcIggAJlp C/K2I 8l3M7R6FylX+jAeJS4YxYfKM+oeO3V/ATi/d7OjzcXTR4/UPR3rrUcL+0YGJ/epPtNfHnPLfE6P9xU/x E7cCf apD7LKPbXol4KNBm12RB6YKwN7Bxeufc+vMz9pphRJXmve1d4VRMg7nr/aWM/kKqabr/l+Mn8KVx/BpY kLtHV U823Lnwprm+02ClhVYZjkp+/5zCyrh0Oil+rVacU1NxE21hDYpMddUrz+QKv9Fd368U/qvWg3KR66AnQ C5eHR O/fxi/mZe3WxlNm50dgS9+K+0qtCqtLRgA0O2q5gZz7zyCoe/5p3g2SO/Y1b79udU1/uxgjPnB9Uxx5O f4+0M ck975myYcXV0q08l15jfpCuszI05M45//NdFaaI7v2eM4CiPztYRudFzRl4MLD26t6VTW9lp2en8Kt4x f2rvL R14X6tk8nJckdUx0eo3Ft3rquoiW6N/Pa+b46L73Ef0CWIbj7o/h34YhnNWSONzkLAbO90hZryGZJ77h f56eu JNOs1NLYos/7vreth0cKPbS/W6v/3iiT+3yirZLx2ZGC5cJvN60qczb51PzWNGAHAuJaFNON1cS8gv0Q Pzj1G lYakV9wQBd3uLEeCc+cRAyfuUA8SWkx0dr5k+JglGf+LAeMUNM335LvM7pvk8HY+b5oTlHMarhb3GGSJ Ro8ta TI2GE4AlrOXUIyddeSMIyLg02zKdCngX1H8zX1ex7OvQgxwja6uz/PYxLdYBEV0nwM2VOxsMN4HmQ8q5 il0QT witKOaX5PSJP+WI7WPEZy2Zl+uEFP+a+McePSnYHvvDpUENo+X5kD0cMnyt4YK+B5X16AvfgE7ZxL2Xh nEz5X TkOp1vXL/or+Z7DRAfYH2pB3lzJuSPIRMhjgmP8yETLU/9DPyB+1OYrJVrfm1fx5WWZ7KNh9C/STIYlP 2ob5u 5jole2OpVUIdgxV6pqxVz992HKKeKLgr6ZQvvuY/V0pwQsOX1tq5iqN2YEBk/Lq4gzm6zpF03JcLUts+ o1wC7 BH/jbsiT1cMBaAdRzwbMJnC5WaOq/BBUpaVxGoxz1z13q1VYYb29iKFT2JOFuXvipgQ4nJb76JM44Z/C dLEsc P/HjJ8qO3RqxhY/lEu0a1eM8/SfQntgmAy10rq/7Oj1B/UFcth+u/UV+mia5oByA2krakCX2hB58q4H+ +O4J7 h5/ZdhtpOqYlTuQCmAct26Gx8DOsaXUKwuf/QOzE7Z7ecI/kjh+jZb9hGrGm4ZecOfP0JxUGfjO1wNuU Sfrgy TQ5W8V/P6tQ8C6Qpl/JT/hMiE1KO4YFnany1+RV2tqh8M8gzxRK0SO87VaL4Q6G/ZHkIif/PYBCjq3gb rPNBs 4ZUMztU6WLxa586w9dxsgUW8x8/ZCVTy1V+192fPwxv1+fsb+6fD5VM5zAM/6Z2lPQZgS/yh0A5RePS7 PLvbQ hvJpjT2hvmA3/8j+VwxCySRxbo9qAvjjk8MuVCKf2mcJ1b+4SUKrtQa/fDU3d02PF44X/sHWeKv0lE/P 77sCs eGWxO/wZErvP2zqIHzd/NFNqgFF9rf0g3m+C0paTBa/Z9eOfRDh7AkHiM1EZbfIEuPUyAQHy+EJ3Itgh ESYi5 IeMUB+cYLQY8FedFx8lcXpvZ5cqb/0U9D+uU3azbL8WNaIJXNWuNM3Fte+wZVfPIaPJhjbLS2/ZGb8hY 63yO8 t34Vfsy/2rONlFbLoBgajmwvA9op/udD/BACUvLZZOP1phFPQHt7jto8e4pijV6fxWnAFPIkAr3dhblr +Euo4 MbROim9Tsrhkn4rd1FObOAa6480/a5OkW7cZpCaBJL5PN8ASjpSnI84y8HK9M824mS/CrghaXyJ1rIVN nyB+1 glrAxs5T2yHzNv7lsvK1Qq0gQxYARCHw7FIKwl53TyIpRt+Gfbvg01jBTFPNBo5RDU39cpKs/Dn2RBAP vaXaz SV4ixM1SAC7dWy3bFuH1Xx7WQvgsu19AphinvV2Hf17pmKQsaOm/zj0GI+8qORe/Ax4OCZXxd+L2PWmw TDrFe S0wq5+Du39Wc3mInPp8B7hm+7Y6GPYWSKfQqps9I4lKuq6suaqWzeoda+g7wJo589ZxX7Ah2HCfAHKsz zgjFi v6mWHm7cEjQsos7HrU3kgKxE8q/yA0olV7QSl5jSnvMphWH/6GZzkEBEVL8GPOD9r98T/WdfUEJ8o8oP wO4YY 26JKEXnMLl/BEzoBt1/04v9e6qwIIumK310nv8Zxz7TFIBZgklsBLRE5F0ThIhRmE7Tvfb0Y1ZmlICMv hzfd+ /4chAzE0UY4WC86QgdN1xjV3KF/ZEMS5cWBqvK+5fr3P/02LWzd1lj51D9VoJpD0RIkdP9m3FZ33ytyI 7jse7 c/YBmzzhxn7lamw782rvloj3/khr2g5ql8i+srvcmsrefNbJhq2smsfQJa63fzepGZ18fmha+1IVap4m aXzXV /Dou7wgHQk1xoqyh3AGhv3l3/FZTbX/HIQLpayukIfK2WbPR1bbTfg0LG64/1VTbXzXV/Oiv1emPDh0q qvlVU 82vmmp+9QE8x6QW11spznjAI59uuki+3GILp1GQ85whqw128oSmZyL8wbif3vt07iDa1gppyUtj20sfp 5j9HT 9+J7tlvvP+Grztl8CsiQscEKck5gkruVgoNHbrvZPQck1YWypoXt/m7JhL7ugC5SG/qxqiO4J1LTaRR9 u3hHp 5fme/+Ha1PNepJ6WFrr1j80q+xcNAxt784VVU7zSx1CcDCcSXPjbH5mx7Z1qtYzE6BNOE3+osEX8+73i 5JrPN X7j7dCsn11qgXRQ32hBCHJOov3EbeIzi2cahBtScZV6AaEw1TGzy90X5nEhMLsd/Kn+GeSDJye25t7sO L9dz/ GfiWY5wlh43JjXLmtcV73Umi+8OcpMHHcPkTjzk3xvZyeecYJ5l4EfRw3jT/Ngqvl39iP/BJuWO8iW8i WzCFb QX18UC36Knc33y6/Ibw6Ybwlvz/WtOybsDJ6L58xVnpn7A4VA+qng/mXUZuvMWMFnLyWZ+tsn/Abxuzx 11mzb F5/DiO9qCc0UK5VQ823WLoAdHed3YuZc8+CQj7u3dVL6gTVNc1FF1zEfg19MZ7KB3XVmBitPC4QpE4yP shsJe DFtirxArYyQpNg49sVoiamaYYN5Bu/5ym/Ja44HUV3VvqcfXov9tM1baHo5Uq0e5SU2OVLfhf13qWsnQ zYAp7 i5ZZ7exSo2l//UULyZ90VYwloQvi0TNJ/VhrMa1IkLWoOh5ImE5uWHcQ3T6M+HkpPrblzC5xDHDcgfBU 2pl+U 2s/uWX5tNMzhX+SvjGDASdmZ1CezFEC30csc6yl7euq+Ym1FkEm4JNnSJLKdloItaFvyxGNlP+mtKPKZ 8xkaY WSRjc0podELRt7vanU5m+Td4MLp9/YO108Fb8ZaGaDJ0H2gw+2SGAgT6PGs4x6P93g1Y5m6kfus7Ztzb Awc/m JhA2aHdbLdASW19iLAm+fX2h1jIVRcTWuHFubmvTRdlA8PQ0/KNfo+uzQ73e5BAYWoN3UTj9PT0i0vMM ovEHP PUCZUT/O6JvMz+8R0yISQsn4iPIzi/+Gbw/+nh99VXNS/NMpDohyGyWp7U/Efi2gJcGHQeg9HNKwbOqH nhj43 180nk8DJyPXrw52bG9kMh7iR3DAt1zqu0rcHtZO+Li9JqCSZHBoc3NV4yYOdQnQq7oMK7YboaPnW87VZ 7Q1U3 4/nsSsqzrYNdYD6Ou9KkyuUPLykTvZuRkHN19dsmVV5vlhNkZC+paEKvpmoRtMbqm5e1ySEHB/myDE6q Jwmvl N7s2hCqYxEoc4IaD+TCZAZ77yCZeI46dM6WmPhhRZKQcaTUsfS4zngbOchrHQvCRLFlPjBZOh6/qEa3o oykXZ rcO66wBjDCcjTGsDUNH0xEbf0FeKcYOhA/kXqQWXUQx8IvHcy9fy8GruyuQ1b+hxeXjKVt+zv6EK7/5l F/vZd bBVRb8Ad5zosoY9derOQRVlVp7YIY4WZ/6fwJ/sNHols2IcdPl8Hlp62Li2TMwS5Oba40yH2IAYEVyhJ 2tVzK K2qiqu5cBy0ILLv9vdp36nYQ+r2bmm7aQP/dzB21EyZRo6W7hiRo/hcvpVbk79hBaFrJsu1YXMMRy7/m WcJlK AvNzketyXl8f+q88Cwxz3OmE1qOwVlpp5t7XhpRktGPPwygKDPfOUNEXycRPb7X4uQ/JkxiFpMCUGP6B YPkdw tF7Hd2x7uq7xwE8CAnNu/zitufyN97ok5+ojWjaRUnywOQMH0R/jq0nQm/7A515DFZG6VTjjddqtngDC ftDp8 LwdeIklLqUjl2eqhdmtAl2vbEhPeGT1T88cjVMmkNVrBbhK3LiZR+TaiO4rU/hgwk/8rdbOky24UJQ0P QCLL9 1WKV9R0D0OrD25WGAiOEdJgcmVmXBCItrI0Ri+sFL+XKEcaM0jhMY5Uhh/ohHM39v2ParB7ssvpTH85b tgVyC Xuu/HSpv76uAXo9C/LAsRSW/2MZfrbS9CSbm3mHBJ5c95e+8Gpbz1yWDX92eJXjhlIZpqvhX2bQo3Rr0 jkNak Q/dNBmUf0cGs74kN2PQxvMquq6Vqba1rFRC79M+y/xK9TwgU0lkUczsmD8VPfr1eegxDui/j/GfS/vTM tGz/L pYsSHU4/dIcMnYJ/yERWhH+dCE4qoQpJb96/qqqyur78uq/W7jKKi5R2hQpUE5T14pwBw+qDjoe94UHf 0/cvZ DdW5B4Vhs7XoahHQSajHZU6Aw/BltddFrTH0NErMt8pbb/OhV1/31Yb4dB8yzPfu1/MIZfqo/4EtWW28 RRYLl 83Ik2mQ+A6JxjeV5JI740UiycS4JU9psdT2kyw7bguvKKCFF7zk5l5ZbA769tT0Xyr+79HdoN+Vqsgn5 LwkUL vffS5Rb9Yu4UHTfbfYu34RJ4vd3FLMVa3Z4o5+w/B7S+zF3pgQ83o3j5HdKKCpTT5RAqn62xFytte/Qs bflFz 3Ca+YWJs72bJ0mvkehnn7es3b1WQowpQ9zd/twws/2kVuO3qwFUj9Leh4A59EdZ5w8mVp0iqHE/0dLnv WwirW SKUUg7awVUj1HVLc3TtmzkZEcKkHIJJUBFeqCKRijM3VTaCQA8V/2udYlfnV2OdgFHLTidu6j3rLNV7K udSa0 HJ1M+TKNtvIYmzTtkOUzZ2fiYLBHY4ZP3aY0nMN7J09E1h0CdIa4MiUMW+qePP4YjvRUPH3pQigG8kh7 hh8Yf 5Dci1T4JU65FV83XFrhnu3x0/Fnl6rien7loG5pBDnJV839W7j4eirMuk60jX07N+klCb6essrk1S8yY 1oORw W/Z+sLtv6oqSW/3eacUz1OWOpGcStB/m7hNepZmfABX0HGG3U6SU+6S9eppTHEM0fihMj5bZMQjsc55Y 5Pe+k D/wRWdcSgX5MZ4g5pQTMldF16APZXhWlnRol1wU/vT6OyookE2Me2P75bo5WOIIHwATWrzM6649/5Sjf H/dWZ 4jfLL3/Q2Obx72VkhSdO/wTl3nR2uyBGfU5Y3VHkJOWd692LfH8fF30OAVcQyUpzPB21Qa9Sohgt0W7H FwNTd z9EKmlkQ53lR22Fm3tZdvikN1oIVf/+Gr0+srvPqtEkHYU6U2eFH2f32Yi01amvK2py3TgToJz9xbee8 80+oZ cdTgXv5e15ObPf12w38QP0XyW+t0+KipEpa5Vl1dZlWp8iDppzQitjzddMHc40G7sCY9Qy2KLmRjt70+ diaS3 His1AJPwvk28m613Y/Y8q5ydUnrW3ehmZAblvBGlzWVuHBAiC2rDcCIgz2CADGg8+YyBAFxpAB8KW+Y2 x7zR5 66hdzWjvOvDjMQbC9I/Fr0pfC1aEx/zJhE2X2yaWkzA/sVhWcXx9K9EHoI2dzVKhvqKC6bvI/Dzxw5zm 1vlDj 71TVvNbqcfzEzW/YWyzlLI3fDZ2J/Qvgm02Jo+fEzP1w8/mGnRb5/13no2SliKw37sN90hs692Lhc+aa n7VVP IgrwooVY0W/YzOFS3LUMDd65z7J10hOkeeoKaKE63r65MJf8Cz+qdAD/NvX1tTqFCQP4NJikZvOi2JXf PpfuG Cr8462QqmE0IvGcr/n2xbqO21xrLc/RbrXTokp3e6j1OvWxEN5tChDl881kd4jgheJXwZuE+hPLVn/sH Xvsce d66rt2Zjdw7h+GEQ7caM0uk8tzB/hb5zwTXmfnoAngtddr/m0GBCWzrwiJegebPzjul3tCzYU7HFLl6S ZEgfP UeeBSeZrnj0WHD5Et/PtWlq0U/Nadya/y1e+nOA9nAej9NS1hPkvyFDnuksQIjN4JFayX/axs9zrX0IA7 Jseb8 N6LL+Q/p0dQ18+BrASU13BugMgAZQMx/sX4CYu8UiFJ+hQMS6pXNun4C2R2EoRmWC6Mygu36uh3pZl8n hBt/g 3mbnWS/Lji5/TSx6JxGA4j2cMxsloCZS44C7M6NxMI8YJDgCpbB7/yAfkFQBoEiXMifFx2Yf+7d15vDX cj+xs 3dwViOKm/CT8KB5Igq6wsEr+TjqrCNss7wtoICN1xEuxPVfw6sf6y2qnlZ3Ypau1SjIz0k9Vt951+Z2/ JfD5t zz4E/AUogO0Rn376Ws3w/0XwU4L/I8pP7XXOD+Hd97/O3/mGrJ81H2L3V+jzz00ZOc5l95xaucHW/gld jJVCP ZeX+6gMR9Sr0VP6FTNl2+Gyx38vt6mt8/3h8XJu7cmQk6TtmZCT5G+epLCdFI32T4hVn6fQqsKHWpdxE GxDCk 2r8xBsl08vOlSJQPrId3HCjMjjtSMoJoWneFCjlEFV1GP7Gr9WdxdUT+0cgq56QrAa9fREgkGIruqfTX wll8M I2t6+YaPzkPF8q9HSGp07bn98ShYG88z9w7nD8qL+pfmD3NoEr/52LNlpr1Y3JM/o6DafAe+3kF84qSj K47Po 99az6gyliwAoY3GD+f28LYKxyd2uGB0vXeJPN/0akUXS1HyPJI9scldYleaRyQ+rN5dj9fQTvRXflHEx 4Um/B Iln3OfVV3ihrTPmsdsxu7mRT4dWf9zcRu3h2IicA33ufnKa3rJq+eo77S5xNxRn5hbDnf8yRhyHkE09q KUkuu /b+/skog2cONEYHr7FTmKg3i5oUTyKuR9o/Hb8PS5Bz33Heu6tOQYmPmmN+r6mybBLp2EEuJiSEr0htA +uGkO JiPBox6ii/aHNb0xTdJLWomMFu6fIqphp37gK6OjPF08i+H/+Vt8gOmiKVTk0LA0Is/oUtvIBMa0Vkjw Oj+Y0 6kDur6YFJEtToN2+BgYQduX/OD8olgX3qDYH6FQhC1ThT+UptIhSPGk/IMy01dWRMXyFD+sbINHNFPwe DAaDS GjfonjNyJ+AhpThc9p+zKVLCcYh4JRZue+SckvMXtihl/s8tWFFITqYLIp4HuOGe1/h8Lyo+SAW9Jo8T ZBUzx F2xo00AkywPmNWOx4W8W8BtKxWyWVldIVe0Gab5iFAgeEnxZ+j+EKVb4h6JEk3NniN3udkAOvPQP52Je /ifyk 81iBPQkDvV5/Ycxpj84W4lf++qG0AR+A37fD9t8j8r4p0F8Gyhf7PEP9ujdrAeWNT6AtgbUqdBAHc2X/ EZXyD XwSJn04tuX8cq1jdn+phmvdX0fyof0Ey7xtaqg2TXs5ToeFIMl2oTvcYldljGlHetam41u7C9sp2KCxx fxiN9 EmceZUuuWdkl/R/oUbj3Tee8OFI1apo4SyObM3YPPs7Oczo6+HolZWdMG9Blq8f9cRQr8/MgjzPuzE6B tkvi0 a6tD6E6ceL5HH0LuK/Hrg4KqrPrmOLe48EQFV336Cggcl3E+Z1sboUum/TTrpA+F6DNfTxYgX3uvLork ym1xz /YeTp86FXdEJFI8klrlwI7K+43t8DsohT/ES+JD7R2kmdr9eCmoeABSJ4iW+B3lygRVXIei0H4eLHco3 Rt/yw dRpOWCFfx4GjJ6t3Ixkm+BHWS5s+xtfNz9+hl84U/+Ftv1w/QVIt5jvq2WzmzVezGojSQq+xzMM417ur m1if1 R+dQlgMBMuaSGR/+m6N7lAOgK/IFl6xuLdgwthX5Ue+JRrB9c0G9pO9havWzpZfo34qB064I0LeEm5TD 4zwBV D5Fr2Iw2U+ymcH1JRn/YUu5y1HiQi733ZRcI7gOxTNaHf+CQimq0l1OkC/xbmyl6kntvL/gi/Lb+ZuT7 /r0vX 18mp/XA/yKpUc5H6LpwM7Xm69+Q0Lex9IYmPrN2wUbD0kH+SaW6FcXyJm7gvvOcfj0TYjqUmlZOvewf3 Ez98S fzoQOjkjEr/v7QdAUV/J7gWek08cdS0cEnS6RsitK5Vjod0q8DY/8WVtG4+5NmHDoe6uisGgh1KKd/d/ e7ID6 r76cGQq5R/6N+9ko56Nt/PIy3UWsJ5llCvHoBcIkxWVzUkvHwZ4S+QEM2qt/iYoZFi5K3nXLNP9iwkxU Pyw9N 60P7hg5pUXsfBQ7odH10Opp+d+IDCl+VhVFRvqP+fvfeNdRzLDvyoUk+iBigh1q5CoShF7hElubG+MOA e2Nht F3360eIApPLW/iBSkjr2EbloqUXHmwdLBvDljZslBeaO66cGUZdFOWAGA/HXCQLE+8GJ+Eazw/ZupzlZ A4teO IavAg1rAobbawByw7JqRe/KSFtZrA4J9rvB+2zX68H3YErRwX+de++5l+nvJ1EugqdbM88vu49MX8LBl xsEpH /akbRqRRaPAkJquoQSEguPsZAHXC/pFPwNhloa+y/ZhsqZAPQqoc510FGOyUfDBtYqFzt9eZEBYH7Cvg JMsWW uZ/seR1Hyz8HWfY6H7iIcDupV2niy5RwiyyXaZqT+4fH+pqA1Zh9gnFVGvhqkZXp+VmjgfAyQ5Mq4MC4 XDyzZ wQGYkLESZPIwvzYOh9/B68p/+jty+u9heToOl84Yw5GSezVNLcb9kGIR+C7xApWrPYhwWqxbkEzeYQ3C R7/Jw zvLPClxyBf/bqjBnx5ISOvcXNrxSnyn83G/auAwXb1c+02Q0Xf6wF3x3DsvvZ7eXZh5J302Gdguipgo6 qAyD4 CDixSJxI86LE9W/x0842ox6Tw184QQR3j7YgH6+IcHPJ5GYz4A/SGfzaYlCvT6llcu9ZW2c+nf6zXrdH gfze6 HXl4yDY74T05n5kaPY8CL2W9Yi3vSOhTQRxx1Rk1tAXzuPahe/fLbOH/FCywIQECRP/uT83ikXuyOxH0 O9HJ0 ztLmc0lqMNyGkWd/abmhSaF0CcAyQIkLIJpT+mx2e7Z+wRzql/zPEJUMrxyy5vUNbhv9eaQetHuKQR/G s0JXV 38LkVA+zAR0xEVekSZVSwnkc45H/OgvsEFggYkbpBPoe2nqTVVAJ18aG5ve066Ckc6rXjZ0LAgYwOa7h cvZO4 tYeHfZ/VzUw52UV5z2ZLg7mZstNYcE++Av1n12fy45x5iTowGwCw/o8IZQP4iMlBdoNcp2O+/YX6kdQ1 4SdWQ PsfqTcxRcrSTLyNBiNLwNfkBAZBASA8R76oCXI/Ci1XezNGu95i5P80an+WIMpTua55+3A7/Vn/Bcwmu kSY4q NoJarKiP6hSjInrf1EO7um/kPj/wBZOd+n9OzmGMPz3s+OEZgk03wzszO7+LnEv/Mie55Xe3QV8e1NVo Otvim aLqMELs/rihPynNc0PNSllV7+jqYGT9mjBGW6D62u/LhHjqSjoLCv0qBQPLQi+p4m5YZq5s8U9GVnDwv sl5ge wP1iLnJarQssHzxThfn9VmYUGNLveMkLkohm+D5VVb6wVuuo48ylOwiQk8iCAEHZWvjIQNRNSZVsGIvC MK8ev nE2EXCZdU/AQ07Fc8/BCL5Rx3G8MHZiO2+aavVFSpoUycC1yzt7JLfloan48sjg45NwRETQ7G5gqnOPU M2/l9 q/ORan1lVMVIVAjvbIcq+NJ42VeI29l6UGX/5UqhIiJJT1urOtpi0k98yd0dUqtn67muHXW9Qm8Z1dAu 9kLKN p8q7J2IWBhtaSKeCt+Jr5Y4lNm+Zvgj4qwiCtejcVanSq/5LhetmgrCakGJ9Ewmb3WKFDsDXi+bi5CzA njg48 vBbk943qP/1y6b+N1HFeZlIq5dDfhwLrR70H1VEuCCJG1FIuNWJVwCa/QjFoRqW1Jamqf/VIHsFfxwfw +NF0X 8EIIti8t+be5/P5vzMhVjoCWcW/m659MwWvRRsP+EG6xSeO/lznGa1N/Uh7fdRjrlviYS0vwh/fVQ/1z wJVAx 7Jl9C5nVBO6WrkBdSc3XUhi3Vxei+loCwk14EZc/i3HpcXN21eVbJRjSt0QzxLlkuVvzthHkt/6M33S2 2GX3m MZhyLqhohT8MaiZV1ieETEYWOUfO9jtx8CFY2DsHQ+qO9nb4cz+JrEGF6K2OUhfzA4fO73fjMLV/oOWx 2i7yK 4V8DeIdfnc2Xu283g+feu8iy8i7Y5JY8lLQoTDQmPyRRcszz096oPlB5EdXudyedryo3Pl13QJsP/TMi +vXHH wGZHN/HyYTEG/TauCk8U1LciB3lQ4pEsXQjrhyze5l4y3HOct1RGe6VpcqxX8+RKxglQBm0Vs7kCyZJP Epxt2 pczweK73fGRfhXmrGYsoh+3b4laxdLwFG3NvmFNqocy+Vp296ZyjWzx3VK4rc0OZF9dvsmOq3wPGe348 +dclF /YdXP0vTa862yI6y+RC/zGMGyQrbEjRk4kiRopUzOO++/r7f06fwR939Bcag2KbZRTJYDfBQlGo618Fz yIX4s rjUED9HFuOKpZXiZe88KuSq+/8ku/og0lGuldy57hEo743/OpJw6+gPOpoVkVuowM81liSs215/OpJw6 +eNPz aThKmozJ81mzTw384/OpJw6+eNPzqSRP/oJ40+uaGOj9gJ23+4ICJZu3u+YXVsu40suiBn7IsSPf77OD GXz1p +SFRta40rxfOf5x9D59q/shwKk344cQbQx0/etLwqydN/3nAKv2bYu0/xdKqekrCc7dxC/mQqFHc5wUp fl0X8 ue5SRMo0EoZGL0bar9MqUA3dOos/te92WY+OKuQX/p7Q8AqBPGiWUhtEOB8WHuwoQuyEjzpQmMAki5PW 2v2zf hvfoUxggLHliQnOITa50l+D3+xcHnv+wkqgBZjjtjhH7lsIzyABIY5zrJjdzafMgcQs0kd1nj/ze0ff9 TF+Qn +swO/Ft1mSz37uljvtiUx9aA4T3TdfeEkSGh7N6qLR31jCc6qBx9qipOmw67sYU6prGPXrSEEM2ymKaE YG6zm uZVZL9l+NSVBkF9igJras10a7ac/+n02EvIeAU7Tocxk6aC1Xptk4jmi+dR6Af3wKAump8FUZpdpcnTr 7jd96 Vc0H9S8eE95bi/wkd03XI6iZkLVnW5v2aP2m7LjIgIQPr5Mdn6cQwyT3W+ZCPOnOOd8/Kq/1OCM+rtOr pjfRv 0LYRu/HgMPZI2ji+eEux0+FOWrTybhOagej8YQ7+x4HuB8aED1mx6Cj5x95QG94jt43NWpBV5FZ8oo+C ofUoR +XTY1lvqonlP/sfDGI8MiTi8m6x0z4BeorsiCtpC0/nNO3wefqeL7XZep6MrJUUcLM1QvcUD1eSusIM/ QBhNg JSeExeSJOI0enaD4iEvFdgH5ZM0TqoHr/JKTh6F1hcqxP6L2NO1/61WXdjK/lNfuc1j5t27eJ+buGy/S eU0q7 t6XJZ72V9Gx+0jLzkuuekncoSzoIv+q3aK7pBFlydj7e5Z6I7MB10ddlUK/fam59UNt8S9FQ1J34Lonx +CwT/ oJY7wii8+p6atnRyIbwD6O6pzoOY0b7/AtPNjf9aX2asNvTyMjlng3hIjYgmAykL5Rq2YDydQXIi3c00 amqWT nsxz8tbESBI9ZgNYoW43KwK2fh8gvqOHRTga5PAi3Mbk3xX/L+JkTSEcJR+Uie4z/bIWGI/GfOmXcD6s nupLS peKzu5+41wcZO3UjwuaATbjlcdYPOQkPjoPajMMbi2V7gAtha/BSOUVPsPzZxKbHabkd0w0otOqOrIw5 M8FN1 1UwEVcJBciOTe1BRcutGbPSjMdptxIe0O6rmb+ikCPgI7dwje5KuwAxDUXuYhZXlYF0MZvImDeGz3BTZ xtDmL kh/ziLh8XOeqxd/OB05CkWto/j0fAjoLyM+JOzQ3qA04lofYf5knffyEoeIfWM9OwTGd9fVk9V4MpFpp mSc5m CU1bvTA8Hp1LUXgcli1Pr8N3q2sG5tXK8SC4noJPCYZi+UZjiP+Z1BnmXKJTyQACdONVZGK5TdzyNFG7 wM8T1 N9tfCu+N/CSE3H+7qCHhk8h8ux8U+c3IzF2gYdieX6Tr2Yft+CU/Qozm89CmAJK4KZUQzV6k9jGl0zK+ ruHng 4fd/OyntEjRMYY6O5IHbe1MjsLHuxamTiO8QT62IWGsjYfGuKxfBtqNIOzhdFDDZ/sUZcRp3bGbD/9R8 qMkC8 XIQ0Kf+quu2zEEaiTAZpCWfJG3IwuCfaL6d2RewFueHFV8Cr861ESF86gsx5SctzM+Up5gaMZFlMgnia V+/iq /Xy7ZdYBX8iXWQ4jyPh39Jtx9Wj2/QvwSupS+Ao3PlHdt5UsBKll1+iu8aVzr5sAG1DmBS29wpFH3AGK /181l l5sr1L/D/37OT+UF2YFEaieHsyzo5y/O9I+K4QW//3ecov/ga+f/rdE/r+M9VzD8vS/Bv5B6pbcfzcyD EUyRH mE5JEqcoE0Ac4QwZ/T+UkLvpn+/+DuqE744VeUVrHX3GggOU+sTcKEhVTFIQwL7YXSGbrvhQesIW/CLX OY3Nb pAtk6I/JRVtn/dz3SWDiN6yiZ/M7o4aXQ+8/qL/E6wziK/2EJ+/gjGzA/ly3svjDFHgdtaX6tv1F728D p+HUt OZ/ymRv/svPPIoEcYyuBI1Ar1onUEf6jUIwezvj+y5QK/gSJyyEXaH4O86V32xVxt3PA/kp75C15/4zA /1r/H WJ70D7+ihuooi0Db/Xr4Uvoors5bwAvCm8vU3EMqIGSoSC0x9H/oiWkw7dvfBaTEQyQvn7c/0az/5WHC yIxym B/7R3F2W3xeWA3y1SxWsbGs/j5i/pICr4IiVf/3hW/b+MM3/JpxYfTm6SDsEll0IkLBth8T+Kmrw2bV7 R/1L5 /zw+t87x+6QU82z5/NUsq4VA5Md577IKr+MtQedQ6CATX/SIQ3vnQ0q4VtbY5f6U194w0EsioAsP4qO+ APrpY fmX6m/vVbIjt7vAVdVyR/OuHOO66g3f/H8U5vykfJlSDGCxI3CnF/+skyPwb9PTVrm84ODyf8515e/pT 0L0HT LvGrjI9iIgu5KlluAzd9m37Yum4469ngJ9r8VY++YpJ/xKK2YPdI3g7FrQT70zQ1x9Glg6yWN+1rjuz+ ycf0a Umnx3cn/4bOP17duC/+Ma3titnt31K9O/PTxC+c8RvN+cUmATY2ZRN+E2O/BGgtnyBBZEgjGMPv+Gr4h Wb+gK vMeI4tKVBOY7AeX7KnHzzG1LlaoeETZf3Pe0SUL6EeXFe++bJcL8tG8jOYLvkit9L+jQG81zGa6aZhKJ XnxG/ FiucW5MzZjzXX4g3HqprRaR5Gju6wzDhv/52cE7FEHllS6ISuvxntw7/IBzFI6lmR71CbDodcDkIPhet r8sDM EW72j8osd/lXi+FJUezOUcCnOKauWQFif4vNS/2MjdpDThyX/yUhA4NwL2B083zGbHEFT3RBGW3pB8i2 ODK8G /D8A2fXoX2oUoGJb+R+FfrOQbfp5SzRLzrdoWnlzqsrq31A490kuqvJeNxqaTqKY+OYtTKlIx1NJsa/E +VOlQ u5T7ZcRUnNVdtv8+4l7mvfU4kzxIeerIsOI2Hic5ltSDAwLL6dtkqHtD2JxqOPSQJfPe3mAfoBlx0Q/J Q2gsz tYWt6JEuPmtL63WnXXheWRjC/B/fsycZMIH5oXSZKDc6JDQtubPk+8w7g1HxMWv9gbagq/JX5PCjHgkg RTZpn M6hm8S0l/qpK8eW2kOUndS4AAfsR4rVaTvSUNp9xb8sqdBqQqpukYKKCvmUCdKXfW/YABXh1K0COYoLU sjvO8 TonBJTod9yhP7qMk3LkWVkLkeRF34fiacBEQ/Nz5S+7aSlR49E58RXi8itx/8uNGDnvrG0Je8wkGSNUv /oBOP lLkBxB/KgNlvyxfCt/1hEJ5uIVq5olZe766K2JDiYWyn/3Ssoe7lH8iN5o19tbx13VRrLxY29ifhdLHO 8B+ic 4I5JD//0ihNS89Zikf/D0ublyIr25Px7WLgXBpG7w0b602+2sv4fy5nmKdn7LSuu62fU2yXhzwmu+WH/ xavuS Zun1V83QZjlZnkWc3IjnjWE1R/oor58Sol4klgGpqabtyxSFz+PnrKu/Ym+feH5+brJxYRV7eql3/Sa+ WOWXO +q46cdOc519+UImz/5u49aEEk5V0myeADPGg81VCFi/UO4d14mT6gJBCPRD6I1M9xzw/W0500brgCcO5 YJghd u49oVGtc4qPAJ+e/UmW/01svYa/YUHut6YjrKUyU//Zrc5Ww20R2qmasBr/HW5vez4/OpJw6+eNPzqyX n4bUr pC242to8Dp/wZd/aWHdHh7H5CLbU/0dP9HHP8h4Hu4Y4FXZ89UkyWvNKnW1iompQNec23YiJvvaPxkfM Luciana 6yiZf2jXEfsG4xW1K/2V9Brr+8OVi9lD+dhYO//ASQaxEdFS069snCc6AA0N3Nttoo19gHKtQZvr68FK T4iK6 5uN40lrgPEz3w+SXlIQnpZr+oTFP9O6F/KT/iI/eeFveXNl1/bPxf+M/xFmRwv0rL/b5Oaj+YdU4Xw00 Yyfx/ kFmeNkXkCVthxjGoWu4L3x/svSOSSjhwdgU9BCV9Xi+4/VVfUNsJSD25fz4sq5ayF/lSUTM4b9uueDBh +EbOT 9AAmbD88zwlGyKr+MgHYLCnS4VliYTJT40QqFqOIHjPQD+GGnnFlF/Y0/W/x+c6MEAobokftr2zuE/R1 A5IM/ PipcB7OsqjkrDIFSPqZWkcVnj4xWBme6w5f91YlttvS+UWRj+xy8vEGtKhzfYhPvr3GoC/XUT0p++At0 tOuze 4kYQxUcTlmOazHnyVobQFbfOGISTamf5W/GXKpEj5vWuJud5H/R9FvMZ9v+D9WWEL1l8tEqO9Xw59jTw 8cL3/ vTO7D1R8y4MylHHFj+Xtwq+XnmxY/Rsy8D859c40pyG+egAihLnDl8Q/aOMvBpDl4o1s/kHOd628M/3+ jfXpc h7gzN3S8XNiShDHESQ/akfgI3YwciGN/mVvXPguffGtAxpuibNQiS+9+hyAu3hE1Kkm/9WXSd4jWmMfM cQn1y GndKZ8fT/EjoQT0Y6XdNd7qd/ZDbLVvqL/F7DqR//VL/fK6/Rok2ACvHiE+PeVx/GFFA5dr1Ovof1kww /6r8P W1iTjhz/Bmyq0vte1ytfV3wFcG8os4bu7YBx764alef4/t1Ls202xw+Vt6y05xkYc1do2dcDKh3g8G3C etucb /pfwefLfsF+Q3AM/qhacf8NmnF+gU/kfFqLbb/SotpT4l756mLyGheRKYn0x9yv7pfo8fpWDKRohXW2a wVr1M v3Zyx9lsiwlVGvuHMbj+yXHQ4JEODNd0k01RyPpgSoi32/iD9C/4cYNpRfhgV9bd/Sd3GFvSYKgiqF2F usSpq 2xghge5pGkCvy1+T83zalHi786ckE5QwpbAy+kq++l/iCDYc/KH/ET/Y+OjgkWVR/C7OlaJSl/IwEwk7 iamnk d4wM80xwiuLImmjeXBu+/8obX3n8wKVf2WvT/rzt6FG3AiRDvNNqKOlF3WIC7GBJRi2+GMf2dlBk2RPu 2qLVn B2jBP/i8Vvo/17jOoBar8wW+TF1mUIWCJ0r3jBTzvea5q2umt/D9DGtq3rZGCJM98R3X04ba9Q3Mk/L4 q/cy/ ewLKk6F440PLSfwE1vqIVJC+MWU9m8mWlm5oxVm452xVjXh8/etL0H/Da6XxBijofHju+8mDeY39logE k6T/q KkRmudO4e402+sqIIw3sEv5/bgMaysoLl1wK0TuhOc680bXwGr4/etLYz/Kn4d134gKeCd4/etK0f/Wk 4VdPG i62fINUV5h+o540/OpJw6+eNPzqSdN/1JNG/+pJw6+fGIcbAmGtzjO85iqUg353/OpJw6+eNPzqSTP+q Rose/t MHki16cwwLg6uvq48UwXcL1y7yZDpy7++w//a5IBnubcuN7H+vhn4CNGTgzJhHfgkcmvIF96e/cnF+lS RqMYW FcVDGD8HOQPF3AkO20kFYyjMrNgD/K7Izv/H68/csm/cO8ReZxQyv/KUe5ueByMtEsvkyKFMA5w98xfY e8cGz hVqgF79k56T9+KrWzpraZQmci6BSRevbIYGr2wwszMC2Ma+qCK2TNbNLq1HEGPMZ09sNzFMDiwvR1H6w VG6s5 VfJanA1/Tmgi2MnsZTc99NIEPyT0e31/PJGe4Wh6LXv38Xavfu1n/mTp20Ej3Jss/5lB/KNb7wu1Q4K/ KNcCm G+dp297TK+8S+hF0+uC29K6d/f6Fs2R3/VmLK9vV+W/qEAvxHuyFjCIlhCEvxAqL4r3iDeacf++PevAP 4U8rf 5o01xGy/btp+Ubsw2mdttO9mvjw2Ro/flAzXaMVfyh7yiZG6C2+C9aDhz0pMZ/OhwXVbWvcnm+GuGnxa Hykf9 D3Ld9bm3tnkknQODGGQu5hD/JrEpKQcXdRP6lF8CzJ0RlzHgnutASnwQODlmOT1bjgOJc3ZhqjUN6Ovd 2n5uU EF5XAN67BqIyOdZHutLyQUD0w/sm1bUKapqAGx6Yn1HKA807LqBeo7JEBMT+F5zds1a0hEeV/lJeA8wZ f+fMb /0bloTZ71lAkEELSph8g6Xxinbjv4eaXLpJ8TGr3Ha7orWJbuDCxMNms8wiPoJaqOQEwL+lmxbrmJ+R0 oiGE1 o3CT2SyDe1jo9zmrXZ7Pt1jetWBovRXyX+Cojh35z0sVIajCAV/tFv4A8dc8C/M9P/R24MyZfyY/CD/U vsIp4 ygRBPvwEFTVGUNTlVUzt5M5yHBCPCJXVlOhfVOWl0M8jqdxBqvTVMrBwNMoavfrBd7PtIwTw1NfCFjw6 k08P3 I9+BT5rP0djvXzwKdH6/Ptp5Dx9WIxnUpIDA6dLMY/9sUReraYaHEblCLvouiNC0xXEwxXvo/p/MPaTU 3jfdc q4sqL6CUtX9bwsFO/Qleec4NVqNiHk15LLbSiHjw9Tle/2xRgy0Fxs/Rsy7LeqKDpkkj1MbqAWoeykRQ 6SUGx t2DHLyQcKOXxhAgXJ/zT3VmVIMGsBypg6zi9ALOiiJvHkPkk3BMDuS2rpvjvJjYLuQhjkr0Wbni1aeX6 3/D/4 DT+JjYdeP5pTynjsBVGqvCfSRThX/sEC3iWkYgcuJ8ZGyqJd0Wb0/xQFy+9LnuOLWGQ9w7s/7yT8b7ZN i2CDj 2pGZzbP8JIBm56rvT/y41gURS3kJJDMNwOcIQ0AkFViSxDVn9WlcgTLkvQ4fQDq9/mlLyO/Tj0hUDbsj YSxAH 0KZhqZsNkMxvS/CENTnHaRrvDzTfBTBSKXISA/P+JIvZH5/AHxGzE//OJNqYXsZT1WqovVQyI6Gheve7 D3x5/ WPzHvQ/gQAsJgSvTVoSA8Gb8z4Ftca4T/nf8K3oRsy5bq04nx4iXUH3YUaVnjlA5DFKb4l/TPaXOvN4U CZotM uF8w+guHpAG4pd/I6B+d7S/nI81scxHifwBFLY4HDj/eraQR0Dcoi0I+bf/PnpFF7pr+RwOEm0N2r1r7 Ea8KP 0Glf2oMU8zjXnPuL7TQEjRRAng/Hl8Z9Q+3Q9JymKcr/mOygP1rZG8J6q01F2BmyWk50m0pOw1jciCG/ yYFv2 k6nl5f/+sZfrb/V1mItff5QVa/QL7rljdUUTEwNccN3jYu62FV+utzzHa+AkfgzI1ghos+RaYLMnCgws +b8RM mzTXyUwU/x+gfmYxG/4bL/DNTI5oSib4p1+IU2ydhkV6CbEKRMjfcDro94prmWqz/kp+c6V/nOix5z1U R+Yj5 UkvqNBxI0zjwGktOd9hHQtKM+21yveeE0/6haVPwo+0c7S4Y6onhefBUP1Mf0J/GaPuN115H/jyG3C2n EuYnw Zxerb/0KgBm/I70Ar+uIkU0/KKtipU6XODsh3a4WYfH1I+U+aVF/zhve0qzHqT/P55q8IKTkr945Ejhi fw2zh +WGSLQJ24K3CxeOSCZ0Kvmfh4OsJBl0alJA/WNJ7HPYx0vhTeFfe+CmbyQpj13rq+zJ9TCwYbxmmP/6a z/cEh vF/r74nbE9Ers1Z1qQp3QxcK/nVPffdJx27EcjL1m49U307KgNZU/XJ3fucxfvt3X9X2Wz7FMXpB2RWp 7pai/ AL75uRxvKq8isiY83HJ4E0y6lPjGoO3TA0t6/HOgvlI6g+hEYgOOi0V1HJhs64RHVtcdE2AN7ILYH9zI 0Owt8 nvO4M/oa8UMLCthB8EQ/uc0Mg2hgU63NEA0oM4at/igqL+pLuov8+vy+IE9mzUE/Bw3DwBS4O2YBprfz tyzbO Y9smkszY1/41fRP6/h1dzC4Ivj+LLqkWztq4gpwRg8HxxyvBHEV5Q5QMZkMRAISbttu1CuGhKnwNIoUK ec2zG rZhhOkkx+9UQW4la3AcalVjDZ+K565ogmomEroBayxTvgFOL7lZ0Cja+ww73hujs/ElAKo9f1S1vb+Sn KbPnI Bg8R/Mirella/1/a/Z7LCIPv/w09Z5l5yfQftpzXIh0LK7Fe8/mWjs7TjLuf4hQOIpxva5Kyz8sLEE3CBmbq i5bIg URculBPFLfiy5zSSbazaDCgCek07HJnaHShy27Dyft3o4U4Ne4e45PHBD0q2H9ulSXTP2TSodzUhZsT2 gYhv6 HCYrFjacsZZkq1+0sX2n7xHY857jzCoNePnz63CAVS8abROD/4HSwVCEKqV93X6nTUa44F1OreZxXDvE kxFwv h0mafjuBiq+KGUnTidubKLphKfAW3JOpuG+yXTQT9/wIZlOmy8hUl5VNzLYcEx+b/kF/M6hPevlLq+gZ ex7Hw lriL320ZXrDI/NC+9A88ms0g454rg2XdmDw6FTlUpN/iW8/kZtSc3e/cSw8PKtG+Wqi5wdQicu70+whv lPRPt nVOXz8XHON6zs5Gpn0D6b0fwQYQtjTCZ5ai0jGsc3Q58Bw0Ds5hYCXta9GNBqqZ/DzB9albmr3iQZlfR TltsI SpaA1SUH9uWG6tCYYP39zRQ12fk+llaVJ/Ubn1kPCw9e1d7+E84karp1PIWQcURsf70dT1p5RWRTz6N6 /EO/v 2tp9w3B9f26eiK/Q1X5XVz/9jhZE0zAm/l0vlJ+qzNu8lDV6X/CPgYyBFQ1CMq3PyU4wy41FqXR0qrY4 SVxsX fTKdu3mebIBx82zrfwhKx3j/cGHgCCbH0mnp7zdiMW2tt/KWS+N/K73wbxJsvj/1pOFXTxp+8zQF7rzb 3vEJj xB23eel7gkBm3UQDF1fa/Y6F3h+fnnvjAOi+KybB5e8664NJmn1nS+4SzsyUZiPVSNy/dbA8wYW8A47y o7fJ2 K+PZsB+fveVomuGA83nLvnuXnv/nN00e++Yx3adWUibxFFb/048plxm4e+O/1auXV1/OgnBEdpwg1Tzt G6LPz Xvfm+DfxOKmsRzhT+aHK38Z2W3Vrbz5agJcADk/nzjFxh/BKblwhvhrdDZI7A5cb4xmGY3hX6U5g3jwT VB9xR Pb2mAr45LF9FD13jumpz00Ka1hfAh44v6yvolIcqOUvk8xb/XIi/7lV8oc5Q02aovSngNN+Z3/xe5ZqC C3pWO CiKr637r7UfWKoOD5UAwpuvQmm/dWftXn/XtkpmvnRSbesW+PRhOzvKYo7YrRPw5srj6UE8KnYirwtKV yPkoJ z4QbYhuL0iIA40Ni6p1/gUH3OQZuP3OgVzomrIwt8IX4Sati/uL7AmUsBIbFBRW432EkQv7SXUWey0XM fv05o JMU61bvxPBco+etDRi86j18Fqcst2KKF5GT/QunDwdsMysDnbm5YuCnsenm5BoklqX+USarMd12lHybf 91ZDN 8wc+lFS9061L/7WX2BAK5krEHmBL7iQrZ1RisEjHlrWAjrKDZKsLOI5y8cfpgycwxB38WJPRyX9hkZi8 JHjHt dwegBaqa9JAUm1ejHFBTVZIERRxhK7H0LI1VfJyIhJPygrna9/XKM8g2Q3xT75flNR2WI74H/GQYj6FK hN4rq PUXfdp8tGY1RFA216+VPBTwont/TwS2aJ/uZXfufu3/Xuvy+6kuZRv4f71xKypXLB/OHjZFsfHoPQbLW 1blos HedBBvtne9m8LP7Z0JEvTx0xyDSBle0NIV/s8n7fr2NK2Ha8Wm4vkX4ADC0Gkb9i0mta2Pwj18/E3jVQ uqvyG 9ULEHGv4gF1I8NQTuHMMhXehH6FUU8zvMzZo7wyLPWXxVAImy3AtS7DE/1uZva8MWdKSTW+5liIvvjDD e3nmO B5+lqBLAx2koUYpc1/d3agXP0z6ecHwOu45ZP+8PS0V+3J3tslIAqcP1lpEklFiVuO16spc8+CVoeBHJ cYwym GU3gn3IyCxb7MFj6XBXBoFqsFGu0ESTkG/ckSh/sPL+ONHtbHfU5Lx1f8+LRzqJAZPtiNrI2SY3vHngP LXBdE 1flN+0BkrqdiO8AYkejIGTfq+eH0Dn7Zn+RJJynEFXiJxO58skZICX/EHVrnCfV2SjbwasNw8ttIsYMi hmPhF CiQUK01JkfDl6I4M7df7IV5b3qupd16n5/sGM7wmNSpw9FdN40tNf/QjoJ+xF+bc0NhzbEL89Va33Ai6 JI18r +UxuHm3bO3ZudUHOdh2uWQ+HgwMvwiPc+HMmvGLquMP/VKK1IMM/dhHXhdphu0Ow8zAEwFP/I+qiGP4T WC6L3 6o9s0ane2GRoD4MpFXNwF/OyqvAaNvCyMTp4LLeK1upv59DaMyEcUZn5GOP+MoxqxKxMcs67Jl6nt2sP J7SAZ I8GXQ7C/5SBVRksJ3hKhj79njvOoXHYBMC0LErpF3XtIE/fHbpn+nGgw/1BVJ/Dzil/HSGt/ZUwZ2ZC1 MP1Ge hXtQ/lYwCI3YPy+MJ72L/LmYOi7z7rhuFYVa7yM7bQacla6q7aU+pvWDxM+r4LvyahAIB+SHOjdgfrlV tA/r+ RGFzbNGI9JYHp5GUFGkiUJ6CvmWviqT/NMsT4nBovbn34flLSW/8+hbVviZ+jrfJUy1b428Xr0TSK2lR /OC30 L/kR+8cV6loD5v25LTncnHiso/N46MYUUYPdwM2TUqL6WlUHdT/2fD8gz6AkckxS86cVc3v4IaK4/Kzy N+oeH yO8IVl3xLY43zy6j49skfez2KKKyHS/zm2aAUcDrLheLQW934xBlRyUtkB9ZkODD+43dV+rgI6t8PRbH PZvy+ v6EqHIV5Nfb3GRfH1wC+Lwad5B3gVcOy7jaVC3i6ZgNY68IRmRNXItTcjrTDVhmCEv+nxC/h+fk7LPop Yjary PxODb+E+U3L/vcq+WEPFkVl/a4M6P7HFRKNp1/9tEKhp7WF8FQEknOi9yzg6JB+RYp0l09CjePycFHEp DoGd8 4iTkYs5tu3Y49n7h/Ew4sALya8npqnvGMPxZODBaySu+JdYac2xshex/gnhK4Z2E01Vt/bUzDQyC+S/D Pmb8F S/4tEhReW/a9H/QYy8fncd/P+t9A/ysUfUtpifTh6Dtd4ay0e+9JG0b9wTv+h4iK/bBePq0B1m8KCkR8 NwZgt M/vlyuw/9Gxtv977wIY02Nagzt9r6s3uMasgx8gI6q0jh6hY2H380u+O3ncx39NG3/q84gB/n1PEFeZg HtdTn 0l1K+2k8ZxTdwHI76F7r/M9bMKZp6Qz/cdTVVry+EPQj/MxHzx4vout4tMpK+FTtb0owNQMq8BNCrV75 DG/Lv MwlAMspvpxAPpv8spnNs8xPgdIKkaPC/wFDOnHNbg8jyTc/h95DkWX8ZnI3xpiSOFq8ykGOBed8gJVq7 yd03Q 5nIlCTS56qXuCRwWGlzGGOZ8/Bcli6x7nXXUQbU1M+3RXRaG2jh/PJTxjkWD8pUeRsyd4WIS+3RpzgJ4 twc+l WUBOZwky+W1wRVT9yVEyY8g/0cu06GmObT6i/MZXoU21hlZ2CleJJAh0Oq8x9ZGjvXkH7NYByvk2biZ+ J/Tfo 3qPYdATapnG4ojkuJdS/p2QIIiEgym4Ij76gkKnT/J4ZX8Qy+O60yvTcbW+cYLGSHT6D7n42AF7Iz2Xj 6MLdr ekwKyuD747CuUDZUv5V0hFtQHo/vciVuJNPNXUAO166vrS2jJWS/ZRP/hVF8/KvgBH/F1sdJ32dIC9LZ gOjj3 MuAl8Mhi+Fi1u+uiuq+08apeKVwJUzqWTonJ3WL1gCSh4aIDGqxSeva1Klge38rCnjQ1p82utuVZp6gb L8XPB olNQrMhZAUpiGLhq7wxr+JFWdcP+e6/xhC6G645Gkk08nuyu2EEx9HPfFWmCIbU4Y0TTLkL46D+tohlS zB9ki CJ+Kf0KA7q9oqDyN6IeWy5KXdIxONQYDk8HZ/3yKF8W+0NyNtulEHyEb7EAmg7hGehH1+c+r9LnnwxYv C8xsI iikP02HTgfSzrQbavrRMwNDwI96o+r53ywICH69qy+yvxx2x+ZCqPy8XfaLSAl8b0rqAj0qr6X+Hlb6F zu5Ik pY1Jg7hfQnho/GsCNd3gUhBS5N1yyBzibyUnct0i4a9NxAh+L07KIbJqQjn1RE9GUZPIR1n361Ui01Ac nvdXK +ZPO2tzYzhDiUhvbGSgvbpTkMy0aYBe/skZHOryM1fWgBXxT8i6krKV2oo754+Vnzz/rumSb/vFClHzO T6wp0 3lWjFTAtLdpHGkkE2s14/X8u777tq/Mh2ggX5Dddmid83Fe035fIg/fezW+5E2AcaxZtQCphKsthhof2 nhp+N IOas517Kk/eHFJ2qn7dBW7DB+16ZtwE2gdT1luT8LmToODV+jFgYWUEB0bQK4+1y1yzKEDqtAYRDw28R 2ujCR L2AcS1nkSu5fg3Oz1WnJXkZYo80BWvRC6R7pxOCs/EPai/Ia0B7HxWacpzC+X5tzQmVSQe6TD8KbcxK2 O5S5b LsjPhCaBmbPEMr+la2d4QLVq7voFEAy5QUU8xygFmgozrM25YiaJjxySwtsPS/1q9aCdrmGV45g9kN2i Pn9w/ kR4RBv0j+N1/Kssn3ABPagTg22O2jwY8ANS2z/Of+KeZX/88kGP/nyVF/63Puxdgo4I1kCUSjCU0mFnV 8mC3z O3afgPEyGN+b3uBCJvBQkWj36RYLhudW6CBQZRaZSbrn0AocrLb3Jd+SUrzxH6YfDiGo+v2LJIpSvvQE Le0C0 mRHvQNBEmJ0z+3vqYGYYGnIFvoH9wQ308fTJmqYeAL0OXC6nGWIRgkzFWnO1FaxW58oOXf29JMq9r0Nj s+w5Y 7mGHAozx/c9gWtJexZQ+dCvJYGhHHXPzbgkUI3AhOYy2mU6w71sngomCMQraCkFccDEllr+F6v6lckpX 7jAEy kU1tElpmbevjUcG65sYI5p1sRbkuUrxHFuLg+EoWnRg0/QMm07qBpsJNEkmJXERe4Y1D03s5odbDN76H YvC0F ER/VqvOFP3b4AEUby6agmVC/V2K6OjJz4sNR4R00xRRCal254jadFIzmJDRJ0eBvP+vkN0aJXLp1u+Cw 5kmMk p/beiZTSM2Cr6gn0OsEx/hK4XWJPvX0Eo3nzCesX9khI0dYyCzKK+uIIYE7gWabgAwnp70s9UCKn7x28 uX8lv H576CVvY4hZ5vYmaR6kMk4uFUL2COnLiPS4qfu+2U12ZGJJbkG/4iWbpKbV/Rbj5H2ST499Qycpj6hWt VjTTJ +YIqVXvprEW8hbUeqSyYgpTwywbxkyDE83PzdiH4pGGiwq71OOzIJ9QuTjk5QaiBSA7D+doiscZmbwT5 PcsTa IJiWGEralSgRGR3Fy1aG1AA+ciLZ/3Gde/gXp70KRPLifJULiOEKBuK89D6bs+kNzEgc7zwX17Fr2dNU cXbOy 2QsNXeJpNMX4afW8nuXJP5RET8EmD1ICKF633IOVd+LfqJS45Af+KIyahhdsdcDJGy0GfLOIGUfkJCgw w8/HX RPHoklhXdBjVXe1oE7Ezi08fOfjs7BLIUQOpZL0H+WJBoYZeyS/MpeSWSfiezzH/asyL2tES1szJTkb/ UgoiX gwr6MTJWCDvtZG7G+rlvE9QsCiDO8u/vH5moMz18fBe3EOQ/vjJYRY4eF6c3HkIF8DOHb3BNhPGg8dA+ RXlIw pRDU1b58w1vFTlPXg5FLHm/fOzv8/HIsh+tv1qAK6IuRAUfeO/e7HqoR9VQTSDQ0/vuWpHA0IR2t+xZK xYwq3 nJ9RXfy7Z+MQ48VP9qmHJ+lvwY/5UEmOp0tViC77Mx8TdJ/qXkPHC+hd1r2F57qrXnn+0vZ8unmEFlO+ M/gk+ 8kxLM69O+qzsSWwT5m/5dZVr+FFPO6u/XpxKPvBbdFUJEZwNtpesvveGarq9mJQgkZ0ccwS0o0dg+Ba+ 5yDj2 WJ6rjn5lO3+41dh8eD9nSfxrf8On4y/ik9fiTSp/LQQyy4K4/FrM9ZhK19R/v5q/xAa4aso7f/I5/XXp /73sS jKe5LB+hV+8pb99DDTfjkRoBwPrzCTXXPzsiIjhn0IVCOGSH0Y5d09clZkg+w2OI3KEhOM/6vh6KwE4F crWqk mAve/JZ9J0QJc0XvX485l8I0Yd8ZInZiDs5UfJyXy2uKVe8SMpsIIG8ShlH0PcC/vFJs1cqB7/xXs7t1 l+4/s N6uyW3aMuZxz4EVZ/vu8E738Su6NhTcuj0s/QRLhJJh7xlvPl7TXD61dV50NJDOyQ+X6a/jhyGMCaXTT 7efsd iutn4anoc3CtKXnKEY745rrSCbHmyUUDqBw/IH1N+IaTnePTaZiftkyPxq/cRSwYVnYbJzcsgvW7jkAt EE4BC gBKebDkqfpJ83dbKwVtuzRXqh1Q2gX4kxus858Z0jnOcN5wvULpT0K00Zt02lSEx3QXsR/w82HDVPSM2 d9xd7 54MTgJJnEG+55QZ0H7G60CB0uGkSUssxJVACMrKlJME9zPUgQVJ6u8idVcRrwk81mOx/7Z8B08av2Y9l wfJlw dpCN/TVmSJ64nysJmaKFpSA9+03E12BEsOgtZ/rPavBfkYG5hlR/6hkdBwYp33Uvhqtdx4jgMPsumR0K nCrA/ ydKkLWPcAeYs0kM27XhpmS4ckDm24y+INqgtKHPn1keljpPw0mW3dbQlrY5wvlj7auA0S+4ylL1tQf6v 7LzhH SnM5ZnHmiZw/2jG749WDH7DE3fJDAaKmC3//8lfh9/egv1QMt0HggOFKR6dD4f/KVBKGL90L052fZ38g whCnY Fp3Udjcy0/5Xbi0vjRL1/liFuCynu598Xlk7UkM3l+uRPcrsUV9g2af7LV4bCMmf9y+KAX78+h0NxsXN z5h/v b/c3J975nD2a0uITadik4bWx8hzdv6Ed+K3ICr/pLu8IduyAws4R9aAvhytJedI0JrYJscaCs92gFPYs gH8hG x8hSofa+9C//nhuIV99XZc7pIgkH+Q6cSC9ykyhu77dEd9lPGFHs2lD3BemWj860pTeqEqA/qZQtl17t fjVk4 MmHHi20AWd/84olv2Yw6k/6kmjf/Ks1GuUTg77qGv/6kmjf/Bk6KyFWp97nXUCKyu+5fSfM09vouUexn /qSaN /0uKOk3zT3B51ioqXc2LdAYe72AXVXd0s+KOUmr9kR16+1WKEHw6d0j05vkkLo7PvIVq21OPb/6gnjf7 Vk0b/ 6kmjf/Nc5z26aic7A9d45I/70PWHYz+3XIb+jyrsPGlAQ2opvkkyB8gc1TnR65Dp3rN+046EiwLcY1+F EMtHu wVcqfJj/fQqKP04hl+d11TcYSvjFIdvs/aTpPcSZSO/9EPcNDE54IZrarsYLQCP5qyNzHxO2R5p9m3b2 nfEGU K9a292xciDhvLhF0Bibxae9orBqqcObs56VDxAAwHdcsMLOREgJL4sH5V+7N9XNCF3tjl+wC92l/ntkI e4BxX 2Olvgtv6kmHbde0wPxoVf68Dz3TviKEJEqwGLdYz4xD7OwlgNpiw/ejBGxQ7q8LhnDoYppSxSDYneBul nzW91 /RlSNsvm+LPOX8g2kboNse80WFz0BAw+csnkCxHiAhiT5IdVAy07UHUHtUVqHHDmLRwXuYru9s36AAHX F9/lP YEjXq7PDiFlaAu00iVgt+CIgSC/tbA9LsOPsZ1OA8+tXhIEQ2su9kh1xDfPGRbhIv2eTHOw5DA3eQXkg PTMlP LEB3uI6xE/In6gIiZ5xHfUFx/SOhUVwbNR130P/KbMb/iu2+L99dJgHxX/GD5hjdb8QpkYt0yrsPqGgO 3HbWn ZqUNMKWVk9YZyf/oTAWUhELSwL3CDb71WgTI5IjNnfEkN9A+OQmk++x1tKkpOZXuYa7A9511mpDaSres 14CiX 8Zi8iGJrDIDbcENuJb9umt+S5R4IUOm+pImmWJRA/BEz9Vsn/hyowzPkHgk2VrvvmZwdpLDncHR0wK/R J45vP I1e6JPLnPWgaEXODOHRSmy3cKOu9WQdeFNWa5H4mK1a4tzQTpJ3rWfraeyZefS4xVQmXDPIPEh04Zb4J 8OMXw iTkl/7YfLhusYTi5hM+fm7DWE5oYz55W6hkd9ru2o+jEoCR3WAJ3X0VueUNSZNmeMZlCg5ay3aqYoRxg mwbbI BJRX9m/E4zUpAe0P8yI24QZyO7C7xrrZxkMrPjGRyhi88zohGj+3Di9b0wRgaeSYgKiIMH+ZAI6Uhkxf HPC2C w0+bokSQX6tNdze8n/0itA8LcTMam9VZ6qyU+I8MG2h6aZHSgoV/OtioMml4EL4nEsmEhrxK5xepa5Z+ tB/5a auRR07iId19Rrg2H/nxdGQPr0OdgJuXvA7w+CZHiNJ2nWUY/MPAsjFh20RYfCBP8AXwvGaxOsP/IvqJ5 vwq/U dk347+d2P/MaX2D+8oDDkfmc/nDUghLcM4rWA+ii+bsE8eqUBsQ/7IFC0CN/w8OFaz+uzoz14UDx8BdP +GH/Y xdei5T5B+eTx+f0oj1MayhzA591PHnjy7Abxa/hA7O4D8ibBtYiYm4VWk8aYHsn/5v4IZ4QpC752VR+Q bfmiG /YNH4ryZbS+BbzLIX62EgQC2pZKGzRfNqXlS+TTNzTtT7QVGqy2o9B+Rqb+4tKnk5i1l/bOMr8CiVON/ 4jeY8 yRkO6rLsOhP/WNmUG7sRWYX+Bes6mos+29R/2Ii002qdqQ4B7TZt2y3gOG52yr/jcr6m3+BCmuTJvMXg Ns4yJ 7IEcCgtP/MtM2MX/03phg2tYuBGaKALM/ih5EoGOtel9Xs/XfElmhXnD3icx37/9KZ/xTidaRK1fYRFI Dy7Kk 8gYFJpDfE/LgrT7S8ljnzSdOTxbPB7Knb/wNxeVN1SimxUdFZs8QFjTy/SxChgvf7jJvdaACheHyyy9Q qQLJd 9PNYFVpafnCJLgQ1RBY8ZgJB1AZd0vYNw1tFEjYS2mZTkZLYe8opM5t4p5htAWbhbw3xPrr5h9OrKEY3 y+b5Z hIcrC8JjDkcNfP0rKIci25swFz1V+VpMM6IUzbPw/TJaKd0UjWNCOvaUrmNG2dkNtbofsV4KIOlTwq+j 18SHe eXcZl0nR4WJiaoXhD0SefjD4EK8yr7qpLGuDlJze1xjpUptNJcN5alO4EKabIanXYeJbF4GJLiBz1eof uLamS SY1K+hgV+6x8UO8I5SrScS8Vp7+ifDbdZ/wp+TD8ClwjWhtlJG10PCW86Gbqhu7XuGX/kX8mSAdFtLHY X038e XzK3yezzucvaXz+RMoLOugyTwuIWt3+FzJ5B/P5faA9ow/hZ/huIFkmEpOk8suakLNO/nts78+PEmUdu oJzTf 1FcqV1i6bGbr363ZiCX/XaYK1lnDLtlj60uVkvEcwXjI1rC/Ef5QUX1CgygV8M8v9e+LdA8RH0jUqBvs HY5p/ /au+uK/eZrI6K6eRBFFBw/5M2Wc+kowN3cGNHVVGsIJfKROolmQJiKl567SIv+Bm2fiij513yLn603/O pJs36 rlsY89ilPc1852G56klsXjmK8s1zoHwtpS7zrmvzMeAl3cbQlrZRPNj0uGe8WTE5aqPCAZnRT+kUZTpx b1vD7 4AvYb1WWfVF8D5ds+hcd/zTU5BJ2rQmxdWwfTvi5KrL6+j3jPPl8jPDU3UYKtfm3w9idjZyobPAtlO4d 7mj3a Qc7PXn73UQITz3mwB4vl9hQRspfLwdUhi4sbhSsnjYsyQDUaEt7zP6IQC83aC8ky8ijhLYP2lvAUEo83 eRfHH 96iQTmP7pIUTvpH0H4l6Z2ceAjo46QeVH5j2Uc1XypcLn/EvTA1O6tMj5iP3ZnNMjmA6fgm/gmP90xyN lAfmP a88oEDIpoOB3CFDtIOhq5OctYhL+xPx3n3C8M8D23mzmTiSjh3fpOHxxDs+TvzvmV+mainframe systems programmer/ZuQ/kVcfyf RZEqu VZAO/YGpH3iJUbD/lCrZEh7kqtzKtj05snhs+B4fj8O1fO9jkkDfr22VCD7MiWfRzMdnbpbeM9G1iU6R K+GNI GL6yArawOWK9yOFu87x/3YgOEu2Ji1Fbhu1Y06hP/a/DkJeTd2s5tzgl7qUENAriXrGQUm3TM9d778de ayzXw CEGP4/6ae5XaXM1t9FXUq9cIn61V9/0VsMkjVgM73aXkeul4WOg9FxWloGz2ve8ldFYWS12PdyP+LHT3 pI/9B s/icC7bQD+nu4608KaN72hcfIEqwtGDZ/oE2Tzids2Wzxsi9D1zKuPcyNNPEo/VWptx9Y/KSJWM4UUtv /8Tn1 J9wi37QLPUQ+fvIu8BU+a+YPOnbu+esyDJaMr9wk2oBz+bxEevUeN9yO+RK/n7pk8nDQA/gK0Tfk0/Um Q+Tn5 A284M1NKxnziv98KAw/snVKlrcj4jsX/+Dt4W/3FgY8sh/vZB1csRpGoX+ZBuaR0eKh+PEu0/1KiLB6h TdM75 ajZAhQk4ojq4PnWWAOl1Hk54n6RdY/IWqPvq7AvQP8b4pb+x07RlfefgYy+mlkic8SW0Wz41nc0Yb5iq 2mf+u MHvgmVzvjgr98GUL5gOjQUdfcDdIBXyZ9hZ5RYtoWEEf01gaF6zaMQPHEbrzl6lUrSnyRunq/w8HuMNm ATP8M b5NCq3fzX43/zTV7oSPniB+bQt9dd0j+jhvY5D1A0nuJeQktT1rfF+jjTRqn+Jn+jcEj/TtX24/Gn6J/ NODQ0 W3nPK4U5nlN0CJ2YdAmbkZJY2rR9o8cBFC9RZzMLA3c9WbBW9LHo6/IDThYgMQ3sle/Dv1r8isGXO1eg qUeOy HlNE11dUoZV5d6xpEDxg2iI8TYu9vsyOTUqDoaTGaulOhgwG4/oAkjcEM/op9RFmi784BdXAMuYiWUDr VQwH0 iw11Itmzqy7PwGtFUjdFh0/ahrHdzi5Y0xrqaX84V2uXfQ1dL54ptXtiLOY1QRdSGBujwaLiH5F7TE1I G/ywn xFudsHLPdzn9Ez/g+Pi/go/f/TlSU7lM/8kqqV2Mqi+ef8fP/47Am/+f/kU5224KxuKlb4ub5NRqlo6W PL+Ob 5J1vfJwdCuHq1bR4XveHu894wEiCd5/qdBmbspWa6mI2LirYn14tlv13RgoaX04I/n4U0tabMfloOSXv 0r2qH 9n+aCq8vL+kf6MhxQtxXKJpKzbL/osO0IUTRQQrcaX8kf6crkucP5kiHzYh9go7K/sXkDWkQvH+FL9gl QpM0o tn0BGy4aPL7+InRR2cyk7jQfgFJN3bv43soXE2uIvzOm8HjHs/oWzFyNLsd+mCftcQ5r6+zKReJq7Ez3 /6S8A O48ysw2ar3edblDt+lx+DbBC62r6GT/qLYNJjVnLvE2rfcu3bFyv0hn3UGJyICdvxp+lN3+7NubGMr+5 LOvfT eX3Px7+xPr5krghKukJ08P907ohH38oyX+5I19ftGIzn1yC+Gt58mpLEg6oIb6Lxf+C/v1VRf/+rNw4I u/gSu lbbwiTMgSBDbSP7jYFgls8cep0wuooAHLk5AUww99iai9Bmnfin9egXPREnlYtzQMB1nyS/kJtKX3gt9 hcX+D 92405RfzCTMTrr9bfVvn8nSgxY/TmXL6I01qgnHFT2zZ8h9Dy/BJF0+f4mETzNNjARo8866H2xWpyEKL 3OHjJ /p1vfqtRfvzdhj9Lbhup0iiK610dnSVd+HESZL7NeKuZlGu/B6HnBs5ygn1KVdamQ7pcfhbeZSEY/AqF Y4vZG MAgvL5cflb0XzzR3uvfqUkZKJtDI51Fhqyvc4T+7PcRfyizGT/txu+PLoe4chXxUBpWAJpmEG952VMau IklCA N7r1LARsJgKB/w+d6IMWHx9u/fsQkm3HTueq7N7lw7CX4bYoHzxwAK8oqpMEwlL1XRgPjB6hSG+PMc5I 9yG8n QUhkFQCzdXRljybgzEAfuWVCtuS91XMS1Ye2Fz7+vJPzk2i4HF5QVBUhgMMG33MHmwJCltoLnqUF1UU+ atD+J 0e4NmouSdEUPRtlHEX7rY4B4GAw/pY1RSryTTU0EimB5YbPtRk0+9YG9oE7pCdbubwmzR2MzKv/o2a5Q ThRyq QvaRH20sRvckZLpO3vy94+CbNKz5Mp/IYg8fRKK3H4bAI8KMb7D3kbVMr/pglz1iyzT3Bhle1yuTKJfD Yk0e9 ec3hR+QbgJJ8HUk+363ZCUxi+BCfaGdcKTcWWCkXgVC8NS+kCxOyPw/IzkAV8mls7geemNb0wSwaK6G3 wNP2f RbbA4GekT/5lVEDcmrrbFP9NMohbL+Q2Alw5baMmPS60l20fJL0LdniRLyWbpVbD/p6W34f2YRS34URo BCXvP /Fj/iJ8s+Diaj9QhE/pfo9l+sA6uNyVOnw05/BQzLvnRerHUWOrIzyV+CdEapewypsEx/VZG1VeOasQr Rjnzi yLDz+Frk1mkdIfTNT5Zq7TD8kc+Dc4q/NRc/5mpjdtDkGu6ddPFer6KZgPuR5MET2/rUpOaUMsWWHZU2 n8aJP HlpSS5AGa6BtDFxBi+qri92/vM6t7R8WvViHt4qa0lDmvg+RpVVrBbIf7HxyUIcESOmAHiejPhWIMoGT wqIJz hY2fnuquJ9cn1AMv9vRzT5iJSVmeMBjbpfuiVi/CWY36F/Zr1jjIppVok0mlIxflB2t6EPwyNvL10Llb uMm7h PSG/ELF10mr6nhFimTlupmBgbtF3NOmUQChlke2ykSy3TkU6aYeW+L8bLBt73VA6nXOW//TT8kjy7G95 /B7R6 SYDkn4FqUbpX0+HFDsOF8Gii12+dzTQlhDZ7wA5dEIhcj46MQNZKB/sP8JK/vEYs5Gyq375wP2B/ccJQ Trgb/ Fsm4tpYaBCjYrL82NKP8H+NCeB/Aq/3Noeu6kL/1SAn0cV3yc3h6ffIb4JA2xki2Y8T/0d6j/a6fwx86 9P/IS o6J+H/QeU/A1QB7T13rs2YCXab5Jdi/GWgcjcI16OVZc/iRj9N5q/aWSo/HZm6zcyS/PI8OY2L8dm7h2 P6q9f FukxP+OB8pL2y6rW4nq2f+eKXFTrr6/xVynqr/4yXWHGL/+nEe0Ful6EgQ+YfBD74gF5G+BD4jcu+o8R AfyQT p+YaOZXIrvzQzOE+Zn+i9I8TMXVmE3NCl5zqM1VdXd/wNNFuJUXdkkvb5Nf/ItUema/wE+Nohp1VkrUm kNHTg w/JxjnA1xaOxP92PtB/FL66B+LXSivHOrii0j/fdTioTQoeE2E5mpdRy8+x/tBcSfAY7JhN6mhXho6hU 8JyEl 2qZ9jxSHoXgm+j5gX/IQ3N4st1o5BwK+HZi4HZlI1CFPigOEkubCENFIgP3fD1csRFfdgqomK0FB/zMq EESoi 2S/QNxQfbgX1mvs1nd4S4CZcRtu+x+AoqkqDkcbxh/V6M8kJbw+JN9HE5CXTMUWT09rK6I1S8h0LOTLj l1Kjm ZyCdEkA3bpwCijQTk0JZJWH5s3c849lET8APP5V6zJWPhvhKc9tAtfMxwWHVFAEpBO1aZw+DQMeqiWsB HHu9H OJ/57ljCxSlp8nMj6YBXO84l0veYERF78jAeW0cmftPxhp8sFgBJnDW9H2HUd//KJMCXozpJM3YzS1mx BRJYp 1EVr0qcC6R23vqz00ZOewLLS3jnA3nae3hqwZgsYlbriXJFG6uEoDoaU3D361QHHr8i2MHdtWa4GGKAf FAgqa 5CTz4kO/fEKiKSI+XS+t6LjsnWraXvAnW/sxhsulvsAS3pzXsdJr+/eX0jYYikWETapMSwtIjBKSO5Yk gLILk MP/V8Q09sE0fG0naoD58wbYIZgFB6iKR0Fq8+2cb+4RAHemZTagAwSuDSInPXJr37F94AGu4wurjm6+C zq0xE MxHmdxYAjmRujq8td51NcSjgcjBS3qZnCPfh72pTmRgGXJ42N5K42W1pbAa9L8nAngIBMdJE6ZRB7rMg KFnxs 5a1RVcV8iPWFvBrETaUwVh2zNIdwIUExW7QTH4nf9mGkcok1TAO9irC4otMcFR5MFsT6keaWVA1md2c5 w4Ne/ XJRU3mntfWwaTutli8N/+eDbI3sUlaQcwH1ev5VG/YMgX3aZesaTzCI6/LBvZqwH4wxO7dl+2gqp5zNV 3VuD7 ZBvY9yDaYpuXYy8zRGhpQicFU+/GBbvL1PfIRL4Aq6/F7+br3+4RkhkjjiJfik2u+1yi/xPb6Q0/OpJw 6+eNP ihSzEhooK46tjEy616/OpJw6+jRIefVwZnkqZ14bcXy814/OpJw6+aTLjeBrVphxY01yyGz172/OpJw6 +eNPz kLeDsuxK79vdVk613/OpJw6+rSAllOvFnbcJ76hnLd946/OpJw6+sEHosZdWxcxD11amFj391/OpJw6+ eNPzq NaLrpmD29wbHk319/OpJw6+qYYzxUfZndwdCB5cPEEfF3BSpT1aA3ZzIRuthynzGGDNlE+PXi91aBzBp 87pqU rCrCedIieK01mLfiuRSo1FEzY1wiJPiUS/ukd/tEK25FLhgi1ef+HuIZN6h1K8EFnHBUV+DSh8nxQn8i mQHJr kDXiJE0guylALxjYAVzZuIJbN2slqNjxwJvo0JIuaz5nM1hpjlnB5yiuEEFvAWd87FR5U+0IYWBY0gPH 2mYwR 8WP88vJ2j53lKl7H5YjM/DyEaLpzSjqP3ILVs5Cfgg4/OO9YV9L7jP4lX+IQDxfwnz0ao26VmzlaQVuw pts1G jQPyOmpV7rqqPDDCEHaeIrgRujK/D3P7TxNwEG0Bm+kJB/ghflh/kd/rqH/j8qFsKpRI2iKewmGTMBiF 3zCh6 KfwxoD8zlFp5pWoj7+WvE8Np67cNyuueNizLLHfm/v1lwNhm2abouvVAZeuZ/9x+bwKs2tSxpEeli0d9 yuT9f huR3zBNrm3oFPwFSWR90K95Nej3nhzJ8H9jbtbFYcn/5JHR3s9A8I10faMrrPj6sYFGkl/YIZz5Px58k RfPX3 mHogkm4gooaHKj3ehWPAUsboO5cwTzC5EOhFF0tOA1VlFJNt2+xcENbn7onknwG1T9vqaFIfncUMXoMQ XwSTj b1SWtwQvGXD3tzMkVgh8rXSlS+NJBNRzJRsJsxDP4b8IG/4cw7/5k/afUJ7YF0xDSYdb+LEdgfg6ROjx yc/o3 wT1j+HQoolG0oTM5DYMI/8+Vd6L1V+88xl8rDGamG+X7ueSN9+Fw+l1/CzXdQp+5jM3b9vRaYpWhA4P5 78Bju Gx8E8rBgukKQXX543I2B/7MQv9xuckob3mHvXKvT/CoMIL6h+QpZLIRy6QQG7+4RPGNhzEbatB89t3fi eXaVS Mkp+x/2QzmzZbRKXqL1p/l6baNi82GQFrClWL1O+H4j4qw8lxOVl8kjH4XN2w/FJhQNyoRoMN2agK7Vy 4kf1s JLDLIiho2n/XX9P/0wGW3UrCsiNnJ8uFxaWMfH1P5Pe+2K/U4Deh+UvbgPDX6lBQ6lXu0LTUMkHv9E/s CfNLm B/yA9sPN9kRx7i8Jce6OGBF/abXOv7vKi1WJbO7v8C/Todd/yjt8S8Z6GFfMeg3hEdPee9KrvX0Pp2aL+d vsK7F xDDMzDiKTAaer9dbZWUb8UmAK4KXI6O2Mdi82KP8edatGDt8CqgP30o0hktd9B/Rw/mdcWZrb2ef68kF uVNfO sKp4wGz8qkdaG1z4NHP9dm490/SvCW2FG7BlZonvZsO15ilPETdzIKocdH6CE6jWUa14ta47/BLIDnC0 iJkh8 adqYA2nlx/mMqmKUvYuhEy9C5JBhDhX0Z5ezB1FFpBjHsstyE4tfnFPY5hRkbrVFwUJ+ciizIFzMBDw9 pay/C r8rvNh6n9Q6Cy3sPDl5fPDt3oXY613FCvg+9qRmT49fobSd9DfWXj80nAOVNcp+1zTyU61yerTnfvHnJ nKrY/ STfzzJCHOxPB2dbqALjolMAkbNU4ILm3QpmltN99yhqngSOcY9kc+FYK8xT8c9Cm3bECQ4PFqzw5iBaf OVMpc sB2Ali8RwYhaFufrxS2x0uF1ttS6bcCBq2ui3liMcltrZVWC00Odf2+dU0vQjjahgIL6Vx2yb4H/xofx CGsP8 QnlsUexBSi8MU73Cvy1TVmBAP79HKtyZk2hGfmxpm/39N5qudON2OJtE8V96qiDoIa9oC3GmU4To6LNQ xm+x9 ImX4aO+S23rHmpl/IuHMNB4XbrfF2ozT1IrdplxmCo+34tzzb2+cmKoU0ny/L+VA1V+36kzDvfGD32bh 1MYj7 EivFfht/bmp2Gi1f2f3Ki9ofm4cLQo9SUC6icoK+Y5Qe7Bu3+IoPBVGBO/MD0g8MoV3mvmqmfgS0N9B8 Pz7/L GfwenPxbZz/fgQ/ieLjMp3RmL/4n/ifzrrd/9XLJZ/yrba/z03VcNjg3wHgXh2k5iKkh3Lm/VXchtKvr JT7v6 KEo55DYSJgFAEM1OKW9S2k30ZMizvMqhyn93ftI0lxWUJ1SPHPzzFqHDfjkOWFdj+OWWiCmTOLmCDbG8 DeNAa fa3zSt0lS41W0Y6sfkcZ47EooNSkSiwSqJC12qlR//0QUszB47Gy0J8zdmSuLJa5woEoZA5G5e1U/2p0 Jy2G+ 6hEq1rfLp+H8k09fiA4KzhqqGcxCnbhw0XkvMEbx0LyyaWoLRVRiNBxTplbet0ZHGUIhiWpXBbmU1XbC z83ig V3amu3SSQBgyGhpTeMHmkwkaxi7fqcpwsr58VgkeNA6MqeBRT9OtR31oigdea+FutLwullHzpe5a02Ah 0Xhta fUM8y11Oijb3ilz1DrtzJIY4Liid3NbqxMiBBqU+OdynwoTycB276gjIfVd0Gj9vMDTqS9uWrCSOH3tc oXKhO EVyhpweC+uVXw6hwwFqn1XpPiCEZ/e54jrrJ1axks0umR0kf6hhSA7+Y2Af/z37qG/bb2abe7V0LgMDZ iXxhp EzIrllv5qUaorSUJhJ1Olk80HWYKwck9DW7x2tU9cHtZ5/1S0IaWfDXTw7y1eFtutauDt3FlnSy/XxTn F7TG+ p/Qhfl9RuguMZdcQJJNy07hqvwE3c8KiXF1XEISPT0DyKdCed2h0w6cpbliB/1UFzD6NA0UcU5U9V4Ub Dx+vT vQSmp8K5kN7vJvNE9YOrcf1YgaI20+N3NtRbAK7fV/BeIB4XY6coMOZAkwyo3iSyMK7KrczbKd3JvSF+ KXloz jdh60Q2F3CPf+GXFvzoO+EfDBKVNUtc33mSdoF/32o9IpsHFN+pT8XXO1vlCBYlV1rXczLU9sxh3Q33H MALYT EjflFDTb7ZDSI8Wm9jMNSrNZycrfUj7j31sVeWHbKVXtbpIG70FdXq0KOkTPWcBvo+U+Q8RnJQxkZmLI Lxw1d 3x/Ttu8o2/JaflwgJNSQ3YEX4vL2VshDjsL9Npr0wX8UUN266c+P/Io/gkgmWx7AlMwIoJPPeyM3jzcE cHTK/ 2Yqm6nMyukf6Y0h/jJ2SMY1UwY/O/TedfHoG0naejNnzN/tzbyjTUvk1ic6dH9Vz3QQ0yn+L/LzMGZb8 OpaD3 2PHM6WLrVUkX2AgjZpZ6pupL5TrR41NLlROwsDscAeUj8irq+HdgkM7lHjRDkEoM3IBjfAAclggDTVhF Ld/EB peilRM5p8Pr/CvlF+TqPekYwStNz8y2wfWTtNRoNosj08sv/gRJ+0i73m9gSl/v9S/4VL0QaL/rV1qzy LiwZA BELfvUpWYsDQtnq0SVKPqkun/sump5yv+Mr8p11+XTiF+Ijjci664El54/7ppFE2SsE1l6TssSDIQjdd 4HGpa Ibaj1mKW7JIXQ0srWtU/Y27/howU+7Myo0mXHioJRVgK9HhLpNlwO8mg3ntTdYrF6KcWFP/HRf/hGf1L FvVvb PiBXehfJK+UX5J/E/mlzM8p+G7OJe71GFDvhb3gApN+KDFji3fa7/3C3p3kLfZ++OExA4FdvHq6f2Ke4 th9o3 LO+QnD1Hq0/k983OXF2PaTOs4m5wc6WV2T/QLfl/ukt7X/TfIvk/6FxM/3yJzFy5T+9h5f7c5kWv0a+R UdmxY GCU8tawWQT/tfH/tf/tLDzhdV1I/pS6phL12PZ4W+Fa6cu7PZEPxrxa/lDIEpZ2xS7DT1M+joAj/1rG0 +2PCb Mr/n+AQhuaI1YLjyCUb6eZBav9vx+x7z01/k+ks6RFR++WFp1xPxGRnNoNbzsoDqLk+z9R8oB1Q1a+FH g0Pw2 S/q4PwFNiRsf7FiQh8Y0nztrQI+EpHv6dCtI+h/9asL/Q6bBd6bx4XYu8S2Uewz5acyZ75op54rogq0f zwfhM OztKJ/Ibno0/xmGquaBhl3V1m8StM5VFakE3Ji02KbBOm/P78GX9NiAy7SdgY5Favd2ZyFUabNKsEahx BHe04 b+69o/6CVlPyw/uLtV6ornAyoIiNvoVRE+zVkW/kLK4n7DMycY+Mqam3pbBM7LEvfxYvx8mY6Xjt46Kg ODxS9 Pw5FWXxwRWFuIakOub/QpOp26veh6409nNsJmaFfOr73c2sA+JPvUJOWR2OS1wmrjr4SV5b5GTVCJHjZ EZEy1 4Y+87NsJY/xb4k7mHRjw03HrVZPa/AtmrS1rduCa7Sb4Z/H+B5GWoItoTwPFmvcGu5/4CU6od2k0mu8Q TBlaJ WfzJpNGgGEXSr15BEjNn9Qui19/syVnEhtxcfskMGd2x9TnxLyN0Wo01Vwjgg3SwV+UajXyCRU/7ETH3 Ct/Fy UDx132udkr2U2Ca3zTZfWBpIIO8w4qAZJY957P0JRpQAqhlC34u5m6QF9q+GXA9tH5Fh21WAWQYqzIHS DJw/U qiVQUHEi68HEttFdV22Etr/6SACs2klipwU0juD+sciVcLOgLM9vD8gPY7BxSOqn25PPxcd4E5YOjJJX ZEe4h 9sgWknzpgQLpfr7+TyVdXErWAS4Ge0+5zteITfTIzeZ0Us9uR2E6467mZYh0ef105U4LsVD7YqtVYKmx eRJo0 zHss8lzOLOoVX+Vc2lclz/eYcQK07fHF1IpZ9FMwy4la0oXTqcLQfAnFt1ypB95TPz0sL6uHShW5pZNs qpjCu s2ykPdctMelrRhBbc/g47qvr5JMwgtzLy3Dtj8WiPKTl8jI5dPf17yiCpkrs9oSsxGbLyXPnmG/KdZSO f48WZ 4XcpqO5AW8ULuoXJYYpJnf3yqCZOXL/XNyKngGVa7NP92zX/fnKfV/iV5z46nJbuF9pNgv6qyFcFthsN o+z3s WS2z4XakVmtBeMzDt8LymjGxkY0GKsxGikGEhrS5gQRv/Dh2Ik1qj5uz0wzS2hquFDtve0+1nZ+Rjmqv +lN5z bN75K3fMV+gaXa40pIqoJ0exXhw9YTzCpDQMt/RjbKzfF/hj2I2E74oyiHh1llVvZ+L+oCP1Y41/sPvZ XyZ5a aS3wDOZiQ+xdXNvMLxPKeTG6/NvYr2F8Fn24o/4b59ytt7lrD+NC2JoT6y3WhikJhX0iLIu5lj2zWZuI 03dq0 2yub+AkTSAGDm4TJPzfMw13npswfb7QYtFo9IpiPIJ6yfcblCL7vh/tOwzqjE21pUUqWGUH9MfZQQSMr F/PlD s+dd0t+5sCmw3nn0br/1ZNC5bjgo1U617zD1h5FGTSRleda8+MKny23VrdgDU9osa9QZQGvvn+w4xbFj R5m+5 3Adi1UeD+2fOnsdY5ZasXEFKlgnXTPs+AYclH7WUn3Q/eg82N2/rbX5c42AsCKmOg77wW7RL5MT1PWwf Upr7j X1ZoMCu+obPY/pDJWrL79Q3x3RwdU8ioXmykBY6SaYGh+BgIzT9R3DtV56IxVWZDE44RWXqDYybxCX0a sReY6 7Gob2BxXKCDSB5lwa4Phjg78ib3cGazEs+Tp0qz1RTgHv2zEyNMjGCMKuipKTBBScQj/jdjt0qZzmv3i XjJ+Y KukAzFbFBU8e2U07Q0SQAY6Fmh2Jb6nzZlfjkJPiwmjg/9eHAFcx9kxzLnM3TgemNavjqBXHNIxmZ+Mk 07Rrr LiRdE8V4FjT/+DRjnroE6N9HDzwTtrToLEGHTOvD9SPgYFNbWZKwG9X35vUXKq8pKJUh77jE7s+Ht/jn wtss1 +KyUtW2VEcZ3PMt/aN7tWAzzloyjd3agyx00xFMbOVvAZElL9mQahrT+Hf+zwMgh2R5NgN18vU/IbwKs ur2uT [id number]/gnmRwsmQ+TnByaAKjnYk4+D0Kjs7j2M7js+4mAnbYPG8YRqZnK4YujzjPvp F5QwA ss9gUL/FLvU+8DJ21yLcHXmGiruxsJ5+Ya5ZvOx/1Lkl/ykP/q3L2WlhNkwUeSH+OGvFPy+dzIwMI7// ZwfLU FCbP74xKxhjOJl7o5q04R79nV98vbddL/fKaRwH4acSSW+zWBEuam/Rq8sXMiAyr++xhfrCg6eL1XokB 4mX+5 ZsJ5UkgDBFf12oPNCjZ/TUisIm4QRrNF7YAPq7l/1nmSF0J/Anf9ftul/Ydb/wbMYUjpcZqF50FBHljS Zg7Bc wcDxLVTIJwo05rJ6TxHG/2BzQ1YDk9vr/CK/rL/hAj/h5cb+32s2jXTl8XJbx6ci0sjmaW76Em4BeGho PeSXv D94RhwqN/7oc12cD8oTNbgJUsW/rJBC99UYwSdyLSB+MOGsHYhhKpBdFlNckrWHPq1pMMr6RIsnWp8B/ //23u /HleU+8GteXpy+To5PX2+C6Bg+mZIhb/MYhYFO4cmEmfvDIjSNhSOogAG3RKBpRwt1T7CSFRSS4oyQ6S owLpM NVSoFo1bCdC7oVNS9cpq1lJUqrsFDn1JuaYODw8ezKq1wdWlUyujpofpvcpETmz/cFr64aa4Xub2Fy+Z wpntq mp/9NojT00ga3SyQT5t8VVrv7basBYukUlt7X9MvRWKi3YPgl1LPN9qwiEc0csWzyle/uxavIcwBO9MM QmmR6 7PgZ8UGneW+6VRXapkW72y2yIG/ru297yPkqef0ONJLe328Eu4KvPlSg7o1DEhbmSm+ItOEJT3tbVlpD PAHQk cye2Q/52L3gvmL1U1Roa2WzBagR7IIU90VgWAuXZlAaiz/+Y3Z47fMDLau4HYuaLnzA3F/N782q/82vv 5hBPq /l/r8S41uaO/+GG09gh+nryACuyLaO+jCfaIlwo45zoz7T/qBv9fkE6F68Mjv2MK8fy3p0loLvlk15f2 vfzX8 1HD+Ms51F1R41jD8REusluN8/mhw/NHg+KPB/mhw/aXB/miwPxp8/eIL0PwR/mOozvGWFf92A3ObvxF5 /miwP sgfoyc7k7Y+aLA/DjnCFnfggt0pbT3k2N9V+5OY6f7usEvMQL484T7B5spW/wPu5m6Coc3t0A1J+6PB/ miwPx komdz6p0B+aLA/IahVPptgzPI47YS/YLzjqtR6hLOO2g4qXB/dhz+Vicente/T30o74q+D/WYOkwI8V31opY 7netl 7+DfxL9bufn3D0G8TuvQC4xwG4FC03B8++I72FD40M0KW9GAZhJZgz2CByvGeITCfEr2zsQ5nbyn9LcF M0Z+C 1vnq/N21N4WqI6gVezEzsq5e+es2XFi2zn+E76G/yO5O729mzkK9+fiVkV1N1nK+zn4jwS/tdLMtseJf 8wYoq b/id+BjqWGk9+VD+dO/mBj8+NhmrBaYBnRgAjFda22L1K4Gki3ecr6MI4892D1otfzT/ZGchvOa4nefA gxUOs Nrb3AnMF0Zzj/OU+i4+PsyaIMv+tSHfFQWeWFzJaorgH3YROde/iAmrkVhKeZ7O9dMYyv63D1XaCEf/t r1ilb 71qw/DNufz1KpfWbpr3gQa12lxm2k/gbfBoH+WroG+kA6xsv4H4hOw2RkGN49qMRqLFIOgRz4kykxiT5 i/UVS Nuc3ZDy8vs4H/eRf5P/t/wEu/qaQY/1V3/2vV/sA1jm90o+zzPmz6+4Ky1tJqtxFLafmcg/zvqyaP8aZ fyNQG H/q/TX0dzf+Uwl1WFujKzQv6l/QXwrYWlvt+i27UmnoNn892Lm+9xVTyPX7umiLlepr7kz/toXau9R0k OLZ4p zq6q/C+rv6y/wboMRfPrP+aEZQrk9JUiSBao/rOTSv+RtPNyr+sWOmW1q+Utj7B/pB/OWix87fFT/w+r E5/i4 a6ITw8Q+UZLvfn1Ppzk+HmduLaJG1aNEJ3Zkhru+U3T/IMMKTKygmU61/G5Jdjne2azJbFu1OcsMQreE jtbyF LnUd1kjzB+gcHIVCzfj9a+UPlH8bZznCWukLXZShzbp0BS+YFj7w9fl4CuRq5qGDvs8rTDht/5AJiDok tv2Xi 0g/IaQf5XPVZ/0lb4SS+/rhq2FQKkBZ7+tBIdRSaObmcvM5z6rRet5m5dk1uXGny3WJv1/SX/JGKPcn0 V829y m7Tjb9e20tnm15Ihi79rt0atKYJ2SU/mhw/mkX4kyV3s7Z2esU/vKq0i9Fno6o1H2J+6PB/miwPxrsjw a3X2i hXhajy2xeGlmiiwx0w4O+aLA/Gtx+kvDdO6C54gA9B8Wrzrd3j0G+aLA/Zuy0tVBaD3B18oF6E4Q06cW 6S4P9 0WB/NNgfDfZHg/8TRB980R7P5aiC/oLbrvEXSb59C7J70DG/NPj+H41VxN/Jzo209fY681gimJP81qy0 /uo3Q cwul3J7Z8dyD7w9AcxFtAu7/pbZZtdM9v2vusxrEEvpgf/C/u7qvQbztrH43WDB7osi4/3s0OJ8VIh+Z nDD33 fYdXolB5jQq5f8CqJ9DIV2cd9dpvgRCPG0e6+x1eVOaHV/V9kCfp6Ruy98k8ltfd/iT/bs/KI2S9Hkzd bKHoC nn5o96FnJe/9lkonsGSi1IbwQT6/EjS+NB1UX7pRkJ14oyzoW6xsYOll5Zo+/MZyqCLpRmr+UcLP+oj+ 01ay3 Ru6OKoGzSV4OprpicQKGEJP68KY/GJk9KLCq9KDQzyRnxQ2IQtJGADFBOdR9JF5wMOFpgDswwO5we6Ei 7KSsO GWqk4bsofI1gQBPlC2os08QtRxwAuHK7dAUjnxVKE54milk+Tjrw5au3T2iaArh+sNrzBjaLTuJ+GAGY mL94X wBdr33M0Ab3Uz6TvUebZ8zuxE9aKAircX3tNNyGP9QJi+D7am/0xgJa6t3+76a5RNyWzq3tRONu1aMo6 W/AaD CdgfGLZSqU/TX/XthfJeGnxQbe4Cg8zs+jj0fSUqvjq8GJ4YQh4lcKsr+3a5ImI0fg4qRwXki6PZdRiW +ajq6 8qobsrt7zWJ9/OnDwl+aXDVmK03/p7qez/64eZFaub1IvsWhz61//bFqaeCfeHb5KGwZu6+e8N9w6P7+ 6bnzX 3EbcARXEzSjP/OdwOdbgh5C0uR3Yi0jJ3/3gDt71lBcux5a+3kw//Ozfh5Sn3W6/T1x/uDnwV1/4Yz9W WzbTh fwA3k1ql5G+quDaz/b9h+9l60U6gJ0b+fxuu6A98+69Nh8yMrGvjQwdAl6gS/sraG/FXTsiwT6B0hb+3 Oco79 pedcB9B8Y5J6oVAMkMJt+DvMrwnmq8lVy3SSShkPtfl/L0lM3JA+38Cvxb7J33J+O2O2V9A87MbnggHq jg/6w +6Z87ql7G4ncDntic5htYCrmb1FfgwQaEvmGsy980gWRwOUzfijDb+M/m9S1sJ4nHuxf+gLGiQdPJn27 3G8LX n/zr14KJbyk0vq++We/enOzsJ/OzJnb7f3ouAr7LtBbFGT2EwLt1+qSX9mffiRKGY/SfmZ/l6myisat1 eSDdV 3EnAAh/9e1jm20aZ6/U8xYh20S6s0L9RiC41/ZKsj+kcpPzkd7nKsSqf4zFieB7EqpHlfmUbY6neHYZt 3OH6f B/ozoAclczqj6j1YchqGuYPVM2X8/WIzsXm712f4jZFtV816Y1nxrz32Fmu1gbUxa2wrB1q6UviLZBx/ qJ+LW t1ycTLbxvzNN4b9d080uirxTCdB1HqoX0XF+/0nxSvaHP3LVSx03yN+eLZLh37xMOZTlTOqbE+8v2xS2 OmRHi LquWueBQTkYRMQFZuYsazTe850+yXRI8p8nTxXrHfp+gYUhTEt5eLu1Vt1dH5gXgL84caoq860BLho8R 6sobb yI0Z+KZPfFjfujGH+TXHa/DbjAm0jPbWO2J/gkGeE1pPEw+SvpAmY067V0XG/P54Np/mF+GBHn67qAqa 5GWqo YcmhNQeQu+Qf8WyZmOsapIp6//dCKleLxAdDk7mJ3/XUsCfQ6zkL3EboyBQS7P1Slo144MexgUoo+/7P OXwyj ST8a4qhu6x8VdTREThqg3LUX/7WxW6X2kTchwnC9+lxFuS4SB6cm0NNv/5SQaCkyH86lFXpv6e+B1smN x8Kbj L//W3f+GSD5RqHnVmnimp4CgcVV1gyi9SaU/XXJUQSDPvgrM11/4/oJ+eVl6ZnGuth370DZ7Olsj2fKr S/84f W6Y/1ty/XDnz/ePFHOX+x93Mm2qBS3b5PIRH7qN3RB0Kbe124rM5sa8UtEU1GZ9WbwI1p0/cH8m0V/rf A3BOt iR45offwzt59cw+oHme0z6vmM/djey7mnttKz38+aU0rKogF+89/2sIs6b7VZ98LMg0CP/Q81UZu6JH5 eBuKv lrUbLYOE2mol7Bha8uqjqwbJttqYDbMzIVfU+pUblZknWX4g+edfgHOYF3TuR5w7GSD4MLz0y55/xzAY 5V/4N 38X+tz4L2ub9Sm/owdhUiVhNawcB6Tg68HjozJwR5m7bYI/CAJAdSQyll2fZ3fMw8M2K9zEPpGAO/ysI 9FQsY xbCxJ3byNhQ3YW9GZi21/XONptw3qm62ZpMxBwur+uJWMm06efvvf/oee/Fvo9s5I3uWCzTmSu2JAdeR u4eAX W32+e8NWUtXGq49jfasPJf/iRVzFI5epPuan6e2zJc7GPik1iWrcLcddV0b5yRvTgFlbabhQ6iB/zbco r4vw/ Gpx/J0Fasmh9y6L+aLA/GuyPBvujsRJ/iR3DST8C14/xl/6/ynZ7YrssMggq8pSv47//Bqn1p3YVOiES X6T5t vrz9j/0FlyOsohlLbcqLVvtZ1XnkdHqDm9NSuSGdg0TlPkUYK4G/etffx21eigIQphyGXWFwqfWHQ4OQ a/YXx xIGK0ua1ofOLxSLeteZ2+nS8Qf+uewqLzfTUfux6aZorntt8R1frASzqzaqs/A+GnnL9R+sYlZ2+pvmf gLtZ8 hT7n+dhR8ZjDE3DAkCjUF6UzRqIJ5MWLkYq+vaDlojLiB3rp6X8j/3iwyiZrKeif3I/Q/nD9dXdAUje9 Qtvrz xt+5/FlJ3c499Nu+/pbg/NMgpGMCp4r/oIqZHUwu/GVkW3z/xX//JT6OJRPI2Y/lbpbjHcQ7zb0AK6YR VP1l2 No5AaKi6Tg++luLuzUI+iRxfuh99PV5/oax0QjDUn5/oMH+aLA/ZjvUDgodvh2mxE0d1U3I+7NQ69vis PzRYH 023P2I8rzhXm9+UPH76Vwznwr2/Ehn3v8p4W56KUDLBH/HLT1ACbR5p9ix+v8Lt6zX6xOUT4CC0yozRP 71k6E /gXY4f+1UOos454D8yM0aKQdXv7MhG1uUyUpgmLwWAB/e+uXG7bhxwsp6oMw1sMY+OMbfSTh/1/rb0gG Egfy1 jo7bDpZ+gy7EgL85IQy6l/6PxMeSTjszhyVkTbS1l3i6W+to8NMyp1uTJlfN9Mgh3xle/GfrrxEqBKs4 57+UM M+/r1XiM5RZQMDc717c+fdL9D/zO1dsUXfGhsCwk3a9I+r9vm1p3dGUD+zP+/xonn+/lD+5vfWvA1yaz 2b9nY Rj6/A62lllK0v8vd8/sIw/ad6PcmPZzRwqngKZYfW1vDDrl4QVFbju4QJP53R71fegmc5sil1FifAb56 C/rZ0 /xx9/DbtmQHD+OeQPoGd9f2xq4q4jD5JEszJiO/x4yBa1o6M+aLA/DksVMmnurrs8APzkYt6/NNgfDfZ Hg89/ NDj+aLA/GuyPRuD+31RXWqW19mcVcR+k2j1oVAlBdsbD7BcIw/6hx/UsSoPzT+Zr7b7BCkrfK9UCjWCW bk7tU t/vFMO6vDOVyH28US2/q5zCCqEJ83+fwE+FCmF/5UyL/PufDRWC/xJ0bFrk0RDqp9+HCjkFHdxnQwnn7 56ZJf db6VbIkb7JQucROKfW9/rzB8kUPHY/GZbr8gLlQS8xFK1QobAYPemby4v+K/zlS/pkrz7kjlB6KYUlrC +8qSz hr/e/zqRco0UXEhyvYNDhI4hyqOlMBM+hxZWGBntx9n51k5aRPgvNi0NH3092ge1sRm4M6+dK038K8W/ B/jwE 5e36iVA6uCbpGWR9gcjMr1/+YoRLgcvXhY7i2YsXdQ8nFmF8GHs+ARoiUMjWZt+L6pq69cuM2wue5+yN Hce6w vkHNNgfDfZHg/6EBY591U9D9xeF698acM4fZK8whG5r6Y0A+3FdBn0umL70ZwYkrw/KhSZ0EYQ5Nhbqn xGBMi HU5P9VI7kaG9I/bW9w9jhIAwcvRlyF/zyCV3z+C902znBIBs89V+yvDLd+yBA9hGbYHgzd4J+wukNaKw L+zpf 1x/FXgps/ybYHO9J+uelMspFuf9aici/MgvMnasn+memGEkjih9yF/ZUxj7/l8Y26qR9i0pcUKCssM/L 9l1Lm 6y/D77SbuT2/Upy/NNULGfmcw2Bna/mzax9x/B3zoN1Wy35BKyO6oNB+D28pqUwASSnK/AGks67uMvAO wyt7C dlK/WqPKVen0ol5Gj4DXohFJ8j8AWcW//mH+Wc3N0WkDiqiQYrjqyj/clu6OrlmbalAKwSF7W45Fg4Or uqOaZ 0Irr+A20L+zzmHF2MC/cnzSztgpku9k8V+aLA/EyfSXozyuh3qvT4p9H9H+6PB/jmicf2ksvVqsv/fky 9lkZs go6djWmeoG5Avw2/9tK3C9wLr6SoXWMJxWQb527X/A6OAGj9zkG6RiLoGPNCUh7+fQTIK+YMzCO+zoQS e/9r8 +vNHKYN0wZJ8b5STyL9WeaV3Yuuas6C2csSq3vqycRhGyT9m+vYGNXm50wjiANXsp9M/ec6n5z1htmT5 nGXyT 6Nlau6Pjazx6U2UddfnR4xn38k9Yd0l89Q7cYBsg5KXJyuw3t/m8Sc4EuGR+eL5SJ3J501gSD3/H3RzB sE1Hj sFnU65TSECbRyx+qGlzNcPCMbWGWxt/nh4/MVx1g7sx94DEYceQrTqiFc0mgeweDBUzNu5bWVlskmnG0 +P6rF qvXzzay5InN6Q3fXjy+LkZWxCisF1r36okmJp/MVk5D1T+6PB/zdkQhtnbry2a4Z+aLA/GuyPBvujwet /0OD4 o7Gq+ZpVrW7QNG+qYAubUzB139kh/OzEB3vulydyDTBiugVNyD3+IaplkTCh+U9IRJry/rhip6mv4v1M 6CPpL 2NVWqRaa2OJ3PUEeIsx/66iItdvAwJ1a7oxUJwF+pjqiv2CtA5yl/AOUUTC6peXjOb/bM9FU24/G+lUB Ao54/ jOUdqtV7IcZ95/io1F/rgO9T/AA5NG4teyUA+HMlAI+woy7HoCZj/G/koo1g+YLNN+0rdhGiH3kHe5Q5 phfzT A365QMjg96/osnrxwA65/tjVTNbB+PLxYHwU3L8efggZi/nH+DRFsv+RRorZ1/iZ//D6CCQUw/4P9VW3 tiqwG LjavP2J++P0VIwf/agozKViR64/IGC220O8E5cqJ/uMbjyCMYe76P9O60HQ/PJzmBwCUb3z/1EM0hfIY P/R/O /rM47zWK3SNLbzn14PC7zxxaGIcQv9c4CSpU8Olx6wuXao8ZCQw0LLn8dSVn5/VWy1lHj5Wt3LEK6Pgg sANJr D+gh2/MXFL4Zc3aN8mOg7d/n2Oh5OHwguF+6vYWIz/kSBOhp0dpsw/ugA3691Yv/8mDo1k6r8uGPV/cp aZ/zn ud0ges4bkinx/PVR/82CC+mstlHwShukE13XpX9iaBLucPVDWZvMyv7ozxkjGfLIcS4b6eD1qww1wp6/ w+Mtw /ACawr705D+Yt//8/Ld3U6MltS643Ap/v+2lc7t9Cu1sWk+lXFh/YzwLknezhFZI3pz/+gHpdKbd/T/v EOrwA qObi3/+LrOSfFMZYG8224pkKU/UGuF//ltrZZHUkfBPgZVvcYK+31/PngIt/eBFd2d6lpOjqnOSnU7F+ wXh/A Ma7I8G+6PB/ugjTcvbzjc9a3X+aLA/EjlTPqpnhh4lpM5djnfkb+M6dSRzxWTsqSoQPLx+n53/HqAeWB 5Asb9 xfFOtTkNxG8p/Tpid96HQfT1Cv/g8r5DxphklzI+g2NmavjuN5J23n1L+s/1oVk+ViF3TkQ5t7/HDRJ+ vLIT9 tSErZ3CYrns0wq1FuE7nZeKbgYhB+LmoLiebnMu2jlnXfm8/AQri33j6egRe/jN+nHksbbG/0eXf1LEj guct9 heOP/xcZ9rdS+pbssCfu2cjk1Ar61/+OQvmyyd3FzV2//2gqL8+V4nrq9h0xpUyr+9f+Qxu6+IVEFw/Y Kzc/B tuCFylpb/19VXNWVS1vT9/ofdAyTRO84ch+PWqvfJtnfwellg/uY7lfzQx7kaxrSBFU5Vv+UIas8G5lt u9rSv M+WO1F00oq3MjyY6OVoLNz/8SCS02cR9JUwz/NNgfDfZHg/5FHI509I5B3jaF1329EaE/SraQywX2bG/ 4//wC wO+SjjloxQkjR2eX8QcP3l+/fVaL0sGbL7qV41Gd/fPjqe3F/vGCOt24H3Obm9bkOf/xakANDn5NN3Ch l6KMz tcZjo7Ll60c483I1zRc8V9m47X+VgkvtRx1A3K+dT7ELiDqd+yWhb3Ei/fH8uA853c2heQ/FRtd/unE/ pf7ym B/FRuv/GW+WejsuoEd2L//61btUuzG/kq5ij++flSwpD/mVZjbv3EqTa7UE1nclC4P32QfbTw430ZGR2 PjbzK h+dsvivYz+9vnRJ91q/ikaZvWoMynTh2Z9xvwU+dPesrg+96XT130Yxlf80954a9888d8s/O5P5d8in9 I5Ep6 jaZgiN0BpJ30F8WIZRF2ipyIjY7Znc856/uTdmf0Fzk/x4unUmUFVIafqrsbXGytLwGDn/BDbHF31OK/ NNgfD fZHg/3A9OirDX2/GuyPBvujsaQ//hpLf7w0tzXSc9/P0gXFnm9aL/1RmcqMXS7KEtqwL1Pka4DsYpjGj vd9O2 ww/ucfj+b59/4qIIaCnT8RC2j/3JxJKH4TpPnAcaqwbFCuWq3w4E3G9e/00n0YezC4Rkuo/NdzZh8vMl iwv4q NE5gU+S/+PWi0q33+Spgu/M28/cMrztUi2Rx9MjphK9jeSatD3A+oTh50eKvPGXqvlPBprmoUqRX65p4 o/7Tw N/I4t3V5Q0gv4MuWa/K6ObI4Z9u3rY+YaucMlBO8x/y4z0d9cSCq/uZ8/SjH+Ru6/Htf+4fLTE3VQ4QB 5d9fF NivzOesO1x/9SZK8pK/hD94fH8T0/gAepTmwV7kmgVD/zhx49+OigV9U8NZiG9Qu/w09n/5/y0HFp3PE uyzIe /8L+jHoESc1gGxDbWxJ3KmZAwppAbDS3V/d22zayOY39rjcHgNg0rS4H4Z7U7/3rvz2f3Xu1PcVzo5c/ MPaLA /GuyPBuf/0WB/NNgfDT7/0WB/NLj+0mB/NLj+1qY7p7F+eRB8coZ989nn/hpk0ToZl+W+FD+bRaAicWu vfO+h pi3oc3p/zZP5/PfmQNovd+nYw3mnyV5KXtY0+LulMmI5ZmcUm6ztFq0bFaz83y2+4lQT873L5s/tKUgu vgQqt ESpuVzV3pcqD/lQh/fWE1j/tUIz96rs9Q2BPIoFb2yy/bdvj147xhm4Ql0/LvxNJjAoiT/7J46i8Nie+ 5te+r h5oCS4kKKGnYj2MaX5WhLVZPkk7psPY20BnQDChn+czscvjIrpeEc2/m4Nx/WjL6r2vijD4qYQmIxBXL b+Jsc 24+6B4lwxR3zT/aOeU2iH/oYquuOv+7DH+DYTqr/a5d/r/abOH6Iq8Nhy1eiwsC2/s1mu/pr/IIb/floyd /iTbC /TEJI5tYN6tYwvAA8J+Pglqaww3EyBWnqtkfoJmZwRaBQl7k/u4J+pva+pxPP9roOI5/E+lbvH1g25z9 9ssA4 OX4p4uaLKDJgr63/c2sv0X+/ae0O2JcU/uWpIn6tiby4Qgpal2/W7zccfkLzIzh6ao6jpeud/w5f4v8+ xF+eT akZiogh8yB4AgwUk7ELEm/B22K/BUxMsFIpTQG5e1Tr1s4/oH//o4DtTGhs4mp5cSBGJBe0H52c71MWg D5+J8 ygV2Ygb/cMofXqEbh7sBg+x8366/t0W0r/ue/jYHLv4/CH5bdczI4dEam6gN8vahR/GHz/3Pp/uu5z3d tbenc BquEY1IM+Mz94O2Hxy014Y5Mxh305G8Tji631C1Zwg296T3E9soG/iFQoaLkwG6BDKa75W0MwY+3b9jf orm9K TCB+Te+mRglvvjO8OHwC7OOv8ZYF29/GFxdeGDncEh13D9cb88jWkr//Loofx2U0JmrYhlphG2/vhwte xpaEx Ba+rbwRnH5Q+HyOXZ2n5jG/le8xnykFtDDPg4fw8NO5uup/gimoH3tUtW0ov2cQUMfR3c2hb4Y/rZ2/v tw/KG /E//0um7++7Hstj1ntmfnrK/F8z+Xs/QtVd6L5jU7LUaj90Ojo+3891x/77Jk/Oyzy5ggIDa+qsD6M/o p+ytl ZjgjVu15cJQ5tkDra/1NoR/w5+Yf31J/ofnHbf+jhVdYX/N4Cq/9HZQNxht/vaE6DdMi/Um902lWO0Yo hOvvw Nlaj8pQjD7t+e+XGL+hVKn634+9/6F3Bu2u36Ql/zqbqBQ2HMDh65PMwRg+HTYY//MP0c+tET1ZCirj1 CNpdu Zbw8hm3Gxz4/ELGfqLhaeMbV4/DCU11sg0PCJwVCA+itH2Pr/k/MPi4U1C9//HSZ846V8O6xnS/dHg6y 8Njj8 xFU14SD8kmK3c9E4C+6OxEn+n9ONYV/z+Ij1x3wSDQDFAeBDcIvVVJdx/Dcpg1RQAc4oUQDVmG+B2g/H 7exTZ 5RF9eqQQ9Hup1jAgq/6GOUavQgrxzx9TMX7zthu61xOQ+pu0gt05Lb97WbE79JnGc17Y9Z0hsYl/ndr5 /3xI+ H3YRyhtSPpkqN3ufVO0RWs2+ys+xdBd5G2+fiHsb3/Sj1XuVHX/Z+ELECTRICAL SOFTWARE ENGINEER+ArR0rC/Ehb+Birt2RQqJyvxq a0L4f icyp65ek/HB1chvKC6JozrLzrnhyF6Y5ExH2LSt5irX9l5Ez7O1YSpW4sMJ5pQizJaYZ51cGquQbeK0H WEtxS RlXl1yfXsp0DVpCqPSuzH6J3W3/pQfRP82M6dQcsA2UWJ0Ivjwf1/h1VwrzRcGpeAbCLWdn03A4EZviB 0tDwN mtGeao9EDqOWHvy2FTx3ewU33fm+HTYY//371jz/Bc9QFpc0+Kfil2pguEuWn1+0d3oru/4C+yujm+R1 yCNh/ DqPlBF0A0Irs0xDl/4JZpZp7qfPVbmWTixydw0xrI1g3R6L+6PB/jrjNsfxxyh3l2L+aLA/Hyst672o+ TjWFb +/7/xMHqVqF/G5vfHMU1EST8lk/F8vTR9OrHlirinlqVATshYz7ClGnB3Z9ZBqt4helG/1z46/2SyRf+ +SX4S nDP/s+UoN6Fa5kpxovk6Tabdyg5KC+YIcboy0Snivf76wMwewP0/e/OiWsb8cLugqG48i5RpeO7kxdao 5/M9a +zvpxq2ix0LrJ2Q+bhSkamX5G7GyY11V/ebt5J2jw/OXQyZC/rj+scUmmv7N3TgRWzc2m4m9LD+UgHd5 MvZXs VHN/bX9+c/tl2Qqj79shrCi//vM7M4dMWblX1N6kp6tCaN4e8HpgS6/3/nUqk3e7UGtFgD080vSBgI7l 6Vc6T NnP2H223x4IXAEAsgxNqdOHu7mfONz/32bZ6LvTVAqkTE7tZv1iePflX6aczYr9GtjeIIvHPyV98/RbW tAYP2 VNHsww0VgnbRZXc92M1F54KK/NNgfDfZHg/8AJQ812I8C0sdX/dFgfzT8/s7d5+XQoD0haIyV1/+e2bl JGhCY srcgQ6bJ92XD9+H5XRwDNv7S8l5Xd9j8/gFrJEq0V70RkbMSStGpa9jbTfSVtl5JaA8f61+OnG7vaq1O +fc/9 pWhvKvLbzah/HtT+TzOV4Fzu+Oi8Pkd66u7jEvE447KpXpP/Su37nsP39xzIb729/GVwfnPFRtnNgVL2 cEzB7 4y2F/FRusvxYuINEe+LwwqlsFC6E+GGL29tV+XsuB8vuwZ/bmIPi8ZgDyAAeq+/lZszOf+2iryj1/g+C tFzf0 I3gr9OAQlc+U4f7Ml/HH/v1WA144gIk05l33t/7dio7H+Xe55MZ4Tat8trMOeoWd34tZU2/prhFjxUa0 Pgfnv ez/+heTiKIE/+gdlHRL90lW1ak77luU3kPkZh/79Yy93z9qyjr0SD8lZO9TW+P0pYQf+brGeIH5/xap4 f/lmD tTb9enSLruGIpvhzm4yvJ7f0H8Q+6PB/yjeUaarqgm6e7W+aLA/Jtu3KkU39+7QT+GX/dVJD3VtKFZm/ 86PbP 84IC63fbEMMV1SfRvAJQ3i0SX0oe/0m4QicuV/QLzBBNZfaLxwiyebHV/+hhOAhgtg78ZS6mmtt4LrQS SRvif kM+dRbaPWLfU4Te2O7+bQPm5ZNtqB8wfGMrSPftq/SO6HESdcDMo8tFjTaJdpO3Q9fKX8VTy/lahQ/Pk XCNlg PwWTEwUMI9ZOfih2W6AlA1P5mpQ6raPy2sxmGQ4tHsdupn6z9zYubpk5SsriW9VVJ2+nDiywssGE/WnI RMhf6 e9nKQIJIk8VBb55H6nv1W+wssEslX/t8bu7zyddd8MrIl773w+NRuby9Cq+xEGcXW4j/WH/Y+wfIWMS8 E/Qsc EE+r9L+dMC/KYZgKWti4s4vqT61kXXN+0ozPzQKr5a4g4Vrc//ifUd8fuTFm6djPyB9l+QyaPEztKxlf j9NTM BYiazrTy5jCyF55//dB1lNUhx+XlLmW3mFy4x5GcxvjBbradToywOQ9DB/cuuOnqhffj9m7O+aLA/Yossi PBvuj dm1ctX0h1W8C+8VsYo0UNdJ+Ga0gACwIm7+iFHSq/ripekAY0vq8tzBb/po9PvsM/wZ2i6KYOTF3bYjN 31/Se Hn2QzR6+pOAsRjigUb0M6VVO+r6qbCTutiUIEeMacof6s1UfjrxPmyHKNTZm7UQ5O+Cp6HOk20K/KWnh v3dRq EA5EtQta+MzVbOwrtM/yK94F6xgD1brCHUp8DNsbnY/TjwiUHqAbqf5f6U/xK1GPAQDnD/nMpU+/Of2V 85Rfw doT/hzX9mf+XYVfNSfZhi/fXmP7O/cbw4A9un7bjumG2HGuh4lukmW/bmwdRXiG3/sb+7PL0PQx0PqM9 Z3y1s ubdH4d9+7E1gs/9LENOO77FD7QmrfoXLPKdRzI+/rBJa3qKiA1/xw9f9ZaiX5COmQyKnH5SKylrciEs1 JhH4s cLjWhcC+eM/oTqbd0sG72CLyum4+bgP1apIbt8sLQW+vOsfWX/ufU3a1TBx6/W7rT/pFbJyE1r3jHRQU vn3cv 5w5tWIAK3a/RTh4I2K+6PB/efjLdiqhiy7j0Z+aLA/FucAXgqlis9jwT5n1D6T8P6SK3SjBPp+dCn2AN 1n5/9 SKy6zdjrb7cQRZhW+ITq0k9/HkDt/8+nwb+8xXZ9e8ZBnc7I20M83IE/ao3AqhHMenUbuL//d/c0msP5 0doDy WfI7cSFAVukTecTJsC8xt4fHXyBCtRwFt39zlQvEv6Y1AaIrN/DJgSSoICR9PzjkvFv+ev912dgdh3kH xvpTu FqA4Xo2AeU8+Kc8C96KG67Q/jQUsxNbf/qQ/d0klD+VPp3SggxLNy88lvDJyxiiCkEDplKzjDJiscBzv f5u6+ STsET+nSIgdwOjHSbc44Eat4TX7+4DHuBbzjL+hQ8wbUX0DY+9uZ2xR1kugpc4X5pD779Dq/sj8l3g2S 8oZR5 /MpWCF6cxbqd8g8UhDbdyt+F0oMHj0o8Jo/sZycrjPfrOntPTv5t/7djKEfpbTIffgu++urnjVqauOQL 9Dxt/ ABMNUzsLgo2/VQPH23C/3Dq2lNn27+kIz34u/iZl/arP5PfE079t2QqjEqGzP9zGpoqN4SwB38+cV278 B0yMn C78jbj+Xidw/y80z73o6OwR+nHGdxl7LKpxL9ufZaw5GxjDeM4pBT9pzoGYd7goF3e7K+r929/ZHgLPj 77oJr 8XkNn+X0TrYs0nv1vcL19QAIT/bzu/qcpRiBh2Yy9p+WGtDX5/ex6I5Cuk3udSEJb3bB4EMoTVl/3RYH 802B8 N9keD/nOiokPCHc73S5B35WD/POsumXV09+L7Mn5/Rkr7X+xnzFKGrYkxB1a2we5iSX/dk+Bq/ojzX8r pdvej urt/Xu7ZOOz/Vl8DKRV80hxblyk0R03SI005ShUZWLkf59byzFkcq5JiLKtW9NyyeUVcDHw+YQl/JRkd 28Iy4 xcktmCkpwzN+UPluPw/hNzEgmULio3wKas+GaSBD2kO3Vn/GS7Or0jyf4BBqzorfhWge/czf94ykmfGB eyvYu M8/sVZRf8GHLPpJemqtJN7/yjDvSdzPyweva63IPA5RHch1n+di0esAPA7FJva/Jl0avz+jV9HER0W3i 94z39 Omm1sPpumJ/E77M17nHb1Rbb0aEI+chCh+Wf4Wf6fsfQer0/SpAntAcDP+QrZypUXCgLz3//IvNuCkwF k/7av pGAt0EFhSMS2+46Wd6uhzsDs+Uel17eYYC24/A/eqvgGM0WH/luoHcixies9l9P+aLA/NfrXZriltz2k sD8a7 I8G+6PB/mjcw1/3N14QnWwQYO2X2M/+7b5IjO3ZCAl0zbW/x/n97TK0hi90w5E3/IgqC+Y48YpiIplB/ NPU/D C36VklKR+8nrdPzPoIz7kzvfX2/7BctlRp3aF/SkmG/VVg/flBO1g2oGP4v9osu1Ck3gZL3/4qT3Kc/1 ex0eZ Lronne1YP0647qhVvUCUK86+Ljl2dCzh0qnrm+KvYeFV/1fuEDeb7m9tdAnie6x6NqgR1k0Phvpqbhse g+KvY eCP+qrOI2F/UimFfUbQUbe4xU4xy6Yj8V6W0T/ffqra+bkqankDyhp5EnlOX+psE/Rm+w9XOz4P2vfrW lWXw/ UvOI7b63J5nUVY74j1/dDnCKJL1ETacBPESWRPzuBlZhv9ktBk9S1z8w9zgVVtswW+xuvJWEhi/8JmL3 wD4H/ 4X+L//LlxUFzJb+YTvGch2eSz5e3O+aLA/HvuAStabda8adX8g8W3P+6PB/iwmQwwhemi8y7Ip0DNvUF tibgf +883oPr3eqV5cU6PO6JjzvJ38W8W37xfp8wMIK8Zu4uqy2d/eKR2TUr1/MG55X/3rtxdb01IsHjCZ7mi Ygee/ H6y0zxbjI0bJxuuIuMY4jl+hB/uLaQ89crvLlAnJyFPN/sT2HsfabhKSjFJaY4h1Q0hG+yuhiL+xzXz2 +mt7s px1z3Kk29UwG1m8xArF/savannah/J3gP+igLL8l5C9s1ZsxaTwXk2oII55QrpYlK0sM84Co5myn3Sq85sp6N 39Vkt HtUO3lgALO+PLCs3TUeNiblvNK1/f3m+jPpEF/ol5lqdLLo71ifzRsWjaHekjibu+HFTvaIYZ8/SjBXn +NdDM b1Kap4zqPYvgI0aSHXO1JnYVU3udrfK00VXcn/GFNLt/N+uP+ZbgG56I7nqpa/vRg180NIqoJlGCrcHC 19zAt /O4P2pyhfSTSDMQ41nFNoP+X8/cx9qYyaUR7jP2t7GiUlXyiOOXDY/FH+FL9Yqx/2Sxly31N/M2gTUk3 BoSff 0QfJDa/Aw0oeaSumB/p/B7/FrKEv+jap8JRnUbTuLr+2KgGJC6//1n6JPoU0g/RGH931U4J0saI/dFgf zSW89 gJybU2XXX7b3mPejf46ND4ddR+aLA/OnmGOzkrhw7lgJ4s1M0C+6PB/fwvFbynliu8h7J+aLA/GuyPBv ujwf5 edY3y6F1U+6PB/bklWpllghe6s0Y+aLA/FwgNEwssvm9xkW5l7C0D+6PB/vsqXhodrpb7i0R+aLA/Yossi PBvuj cv1zkG6w3U0V+6PB/bunYhctbot2p8H+aLA/MsfMLknwgm1toU8e4W4W+6PB/fkyJtdmhhj1z0O+aLA/ GuyPB fgqau7jxH9n6E3H+6PB/zyrLmxhvbj6o7X+aLC/2+T/RfF/O0nGCGBMf/7VwRr3ctc85NV/L7a1AM7FY MWKY5 njblyCNbcU0A4g4KKXFFGMMzTTScI/RjW6u88APzzg6pjSP83KTSGlUAqJ/a/Z3+crfB0b9xs91GplVt 2KzuA MtVd3NKEebwKYjA/hJGpG39ZObZRoGcvz2s6Ndv9V/tvtrxH/8wj+XhRDY9+8+/u6U2vMyMJxk9rE5jH s8LTU evAGfX91R8L/qCMp/LSS8PL5S7JbMrcUqx+NPna47ZrdGYP/r3/NLeeJ2Dvf80o3NFoquxUEYY5XyWDt XkcR/ kc5iDdNkJoZQNSBWQGQXN9qO/HDLXON/vDPI6w/F/0Q1n0Zw/DSX+72tDvzYfzC8Nc+BPNO+marcella+6st4D e+Kv/ rpvwndR9+HMoc3IEDxgNf4g+BbR9ypuBAKYG1E6VvmI8bWyGrdm/A5MVm983HauY8VtfgRvmDsj22hMa ZjJFs 2dRYhc5m/RmQC/8Jk1u1Qx6r65k73+vFb86hjqvc7VSZRTb0gJQjdxxekAbelpOOQ7pr+AqDTmX8z+0J oleIe 5kBmdaxtk/x+I98RpTtSMYfowN+SXFp/IJvOX9/mEqkOM2p1XXPQ+MEj60C5d8toUS1aFt2HYdNr580e /AXWJ b/099CTDKNsHrItbD1S7AvdMLAnZKOCotiKSBjR2mY9LOxLNgm5FZbwbykCdT4KYWxsKlM1YJ9SfScm6 U6l+s D6a6A/PPsV/kQLz+Y2DcFKi5On/PSbRy9kpvVfiokP74+SG1g+/gQGgPWXTpWA/aNkBGMjWyDaXXSFdQ orlkz ix3fIYRLPlaRc9s7t4sawTC9+vaQVhBW3wz/09g3jTfr1GUl+toNK6V1xmHY64tgAr+sD+kvH7Wv+sP7 lGpb2 V+pHz4AC2onOYGDUAhwkbYwkY6ocyBEOL+8TUh9uXtOrNFQyuBLi9jt7jllSDkge+2NoD5H6CAK465Fr Iy3i7 9kyY1zHK8yzk+f+Hq7+Dn5p7d1v/rD+JpC/kK5jythqmWTD8YK+QCewbxb+cE9yHwghOTUV4I1N10+4N hqeZP XO3B9+fXJvfxLrb8/5A/UIeT9NgI30NVznmp7vnw04Oc6t/ir8sR7ISwA1x45C22zGJnoTK/ng33w4y7 l/eJo knSqJvx7b9iLhdHWi753w/D7L4LuJ0X9c4NLoGo28+/esv0rY+OwFVxIK1FtUpz4t+B051q7+CrsLnnp 1hP4O H8sHrb+lunrq3b1q3e/1/4sSC5XlfO+6c12qpqslI7fDh1Fz5Ibx/V7gRk49OqKZ2geH7xVw9d/kfgeN oa7S5 qW/2ES21/Ukgjtr1qT+JxpYryRzYI9w0um1aqh0FsuFx9OM1KAbe2wIC8OY1Ew3bMshh9Xa8BrNKL8xd 1ndSe EPY2+SbgqVQKeDvn84b6H4KwNg/MAWxey4Pup9dxGg+d6p2hmshjY+b1q7UIw3U+u2MfGQ/gS2oS/bz3 hCso0 ur7M5gj8ucFjF/xdrz7dfo85KBSDKF7wB+xg5FpdcaC43xYf4LvxYHk/bzKHW1NAErvYW5Fc780gkh6y fryfo L+6BEnhgNXu+xKpqGo5BpgMtxHHNva435Qbs+jmICkBdBmUG1P1lrqm2IEOecxoGiXo1Gn7wN9qLzmZz Dy9RN zaFC3OMrbo3aFd2yhX4N/Mx6O8eJ3vE6/eiI+g5MZ3brmmB9RnppZ7g4v9Zx4m75rTGW0f3CiNRE+cPg wkbz+ 3MvjOwnVOIouJ+WC7yZ+C9IZqEV4Fw7mNwoafj4x3AnlXe1aYIw+HLIbSPrb/b4RM69DYBao2K9c23pY u79w9 ZfyX+cac30he4wZ3LIw0KhT6HuydtDUGoPgT058jQ+Y3IeIkSWoTt4cawC84B2bb0szdxDIgZ7FfvAjn HfxPo 9Jy/sxK0GqX4xxTf3FQ64/v3/XCP7ryc/1ZF/QBogUKtUtR7RFs17e+oK1fUuxdCSqq1ntttpfuh4+8R 9tvsG B3ZJxwkNw5nR20Qogm5vy4a+v7+mY6PeOS1sje+zjLb/mtn4+BN9awL2AhF80/4V0a3xxQ/OffG8tR/n u2lBr u/d+NtYxK1ki4igd3DRFKO27Hcgoi0h+39g/Yaoh7izayf43okaDm47d8rpQ6EpBi+snHhL/882AAwtl E5KOI WlisB4Kaj/Xxq+tiW9qISA7prdG6pCllKQ061/JJOZwQljhnvFhivRcpnG73edjyOlCTEO5fHhXvaj6o aZfad g4VEqmh22HF9i/bwa1DVnn7mm3A311mEW2CMp2l/629o/QlrQ+OUIP18Xluswv8K7fV175wH9Cy4c/m7 sC02D EnvJi0Hk+34oT/x8pob7q9qv+NnqIYSvg2YGTnXrOyYhWd7i9yYj2WDg5nZk7qbSnPAZSt4Ev79M6pjo P776T 8S9g64/2yoda0jUT855nL5//X14O4dw3wlCWqGOpizQci+pL0/4/g7y0may7xMNY/YZHL+QdhipufG6S f94dd 84uVviujotir86Twk/PBC8c6MExKO/hXgmzGfyl+63EtoN6wswvJlRKYKkr3zoDMiHVYh/CnbIFTYOcB zI/Tx feTl6GkibVIyva4C69eWo2aoZ59F5K1dcYO4lGw/l7Gh2BkQdbHzV5+A84cBN+zM+x/wk9T+J6z0iPZ6 aqy/4 iWAQ8vErN2PhM/frtPc+ZtgqWnhLwHZhrm/MntliANFZzsaqRt9Q3S02b+14EDIagbhv6Q8+KaXo4v7K +gzLn k7DF34yp9QWr4f8cio/OXu0poaaEs52BFI+PBmG5LryW47xgrjc9Hwd11tqAzfFwUy9nF7DSa/T8m1+1 fz9ov Rl/3xAMxVdHPEhSLzShnA0oqnPyGCTFK14T/diFbS+hvev/6mQ/mnpAR4GLq/5DTvatqJaLXFnwj8ODP n2d/G VAoUKLPoct7lc+wrtrYpceKhqg6Gmy3FV40n/aiNShfLQbFjJ3uuiTtDP7U1q0HTsbnPyESt1JZW8wy2 9/rtW jzpDfOb69IYG3tqttYRjL5lRGvDow9s9GeSsWibn9GPQJ6jRx6ZiwV7UaBwZvWrC+XaXlPd/DX93s9hV usPv4 H71PttpB3DsDBIT4T9Ghpb4LJhNdyn9xop797/T7AgzAuVeQLidai5Zh3tJo2E6eZPDtXDxWX4hyCKBQ H9ntf 2n0t4BPds2Z6pUdnojr1SqjF+lSKGT4HyS5BRH6TI2/iHA0RlDH5Ujv6OhgLbEHsiwMBUbg01W35X7WZ LhnD+ FbeicSy2lEBs463PspcdY8an+eHhuXz+5wNVBqXEXJNRvw7HKssS4PTp1lYxBZyOSpd+vs/UauqCwiti Zi8nM uPVqUclZ5K3gu/8n2CyIKmU8le+js9mZUX/mL7BVVmVPAdcdEIh2mqTgfI9GnpIWtY2k6h2Rsu0M+ru2 WOQBu 3vnt9C7dm2aFfifU9YnizXg5WK0W43mYPhunY7ykudwv6ejuZmQ0tiPlqhaai0c3K+aLA/GuyPBvujwf 5osD8 a7I8G+6PB/crwOjyzzrq4h1I+aLA/BrgWDxaxqc3xvV9e0O2Z+6PB/seeXlhhs5is+EUDj9dZgd/NPJk 3h2vj frz8JcU+qC0dVTc0bn0+ezk14rb9kH6+gvUSNNzrx4nj0Vi+RppCOtd0TczE24ACSfqxTzFp/ClpbmRP 2iPP9 +ACO6Y8zZL7uP9uyJiJSd130ZMZccyeVvxc0rgmLNH4Rv9ft3h2yB+Ka/6mfy3+Xl++ywJ220xb861l0 HnOeC 7MjYTBwp+38f38jrWLx+Y/K7taY5lX985lg0oUAzoboeNoDrck82CsBA12UR+Rz23GHy7zRwtxUSrzaA ffvIq YeO1Cm4M3J2pbiz4FiiCO+zqpDMwN9CV4/fxSQkXnjOvtz4m1nV3DhsT/0kGNk0Gu4XXKk+NFsArIj+J rWb/9 h9aHHs3X2cC0vxU2wG3UzB8BZ6Wl32MjA2GbjVnzc8ysvc59Az+r1nVOTd0via/jpilU2Oo+Igb4G8W0 L+8Pf /G8xAR/4xXckECS69miEx/Q/NfiHy8/EMXrDnTtrD+JeQIBDtY9KRKeDtR5grS/dh87mU+WH6hi2dew8 XctWm 1TiePCO6Xbwqkq+K6/+qU/TKH3bA0FTAMC2mX413jS0Ngy/lBpa64ds7WGq6RPb+L1WojOlLU/+Vu/8o fvNrs RLTcTri/3aNociR57bXk4CE0/Om1Twl5TU0zQjEK4Ip/S1Ky/fg+NM42oaj/3nFRXrrGs4QlxraY8RP3 3wxvH sGKuxg/O/7RkH9h0/cmG4MUx4XWiHtcw//hxB9dtg0zSbUvrAHo2B7OOci4HlPyrzHmJqX46n7CqjIpV OnqW/ Lte6GfOrIYr0xaasx9l3+Wpgfk0Py/Ul2w8Y0PXzWoB1rU22L/c1DQvf7sn4+na9x/b+McxvrYirM372 puTfi 0Ci5wbtXeYCHc+5te+5Ia/uy1OgNaPSxI1drmK8jC7/ZC6Zs/Yot+y44d+3fr7n+Yfpu2NOr2c/i9dn8 jvW3+ 9Xld/bvQr1l/9+WF77pss+ysjYVxkizyOrjsu4bhfoY80okbfN7+/Od6bN5y7kLEWz/nR39H1Y6/H42Y exSeD zJayKnHs7QwWhw/jxPkbxFk/y16+BQ5uSy6mfvukqO0hn5VOb+aySY5xiIo8GUyP514cFsRkjiL695iJ V83vm h1hUo6OEs66lnwrzzchfebk7aHNg3QYYDlb/io271284Hei/zsfluwibgoKt1vTT5Avtqax/1kd/dWag 3rW7D 0E3an2Cx5YvNdTm/sF6Q0r9LG1J++898L5+5sm3A8aaI2v/STGyLP+oJmYA+H8DYcq/+UfOH/4Qpg5cs zFi+d j9PfN/jfhy0A4/MnUZ42kMFD++g09+U79iidWLIxLcHZcRwHkc29esVwkpy+nkWykZvfw+Uh8LN/b3c/ 2426C k8cfyAH9Er9xiL1nwyYK2F/Q25qksXnyX0502ypD+q09yXFQCuehd/0g0hYprRg56dG1Pd4+GNcxWuIO WDvH3 a+1xO7Wh4/2XkB2+SA5jl871b0gcrZHT8IsBR+/PnfX1OvRWL/D/MUHTwp/+Idw/hyaOplpT4x1jYC/X cg++O z+z3/ndJ21Dye9wmJWVy45oEY5KxX8pmQm+zNHPN42aFni40AT8+wwwug2mrScZ6f09TxkKrK+Rv1uv9 +0/ob G6E5tkUw9rlDbi2f6yXI/Sqy/3uBW157nX0/HPfQX/RL6+3ZXWH+DWhe+K4rBMk2W0+d4/O2neK853uc oK0F/ UM+xzdVd+Ktjid/B0l3nxn/ypk7QGdE0bi+C3e7MBeoHWF/gbo3aItJGk7+eJd9/WsuTcf1A+MtePttx /nZ7v /rq8y5lD3lnyW251L+/1+u3g7CbN0AcdtdHx2z9XP5VwuGlEvh0Tjsd/L34k+7lJ1TFz7nx+ksLf4D+G gLf+R /u9ZWDwB1LilRTb52E+kJ/M+aIAHk5FEhClE7d4jf+4Mkff0mjtk01d/ekUp/h412aQ27MrDJaN47PDc Uzjx4 /Qf2Z00vfs/fQ3w/sIEnt/L14Wes+fyNF2ehe/eE2vm8i+qsfw5/Sy7mbxBU+RXfl59aRA9R/uoi/DDd njwt/ 6hi1o7+9uvWXXfOH/Et9Vl5Efs/xzomzY6N+ox12q4aHdb7amIaPS/0I+x9pq4/Ax7wmi8X9O/cd1Pip /e3uf rBz6a/bKOIP6+2X26BsD057dk7t580dt164FxA9u6MbbcWn58g/crJu4jXuiIa/E9n+o05WjHow/P0O1 t/C37 H1lzt/cW/ESQjbv7B3qLUPVuwy7Vi5BZgenk6G3v/9ncCHF09IL0/50/i34rxa5Ogexwo/9Es0ktk+jq 2/f/Z Ivhl/s5c2h78j/GXTxqHzl/ay9l0KOqqBKfHlzo0/JNhinDn2ubHozYO+dt4/mHii2aE6X26IHowE6eu nwjwW 2WHd+xge2qs7KtrvP/DvfTV0lIW/kerqxp5pvG+prb9mD/19lJhEz+Nx6CvZjjiuHpKOzm5w2k0TapLh L7Zfh sb5O/kI/R0l/WZdS+vvWz28/qadx2/I3+9tS6SD0q5MRJgh0zyV5CbVjJ/8Acrs9AMPoiy+jN7q1P0k/ u7BTm slh0QEfslfckJyWa0/9566+ATTylIR9gOdiJ6w7/bHH2o9lcXp/UGqe1Ziuw5ML/Od0fsXcgRDT+HvGO OvVT8 k8t6RezasQMi/+Hin2Gy799WNsaac2btE7757lHcf5i/cwdr3gdo40sSi92CK432v9+Ok+wT/3j2F/pq QfXvu T+8i8HM2u7fsleih8ic2+1k5ew8i8z/oavXGwMkn7Iry29cuA6jdnd7b+heWHm7BL6eG78f6uru1nIgi /TUHi F828QEI6M+96/qsxg1Q2pyR1Uhkxh/nxiKt6S3sMGbli/2PsUX+PoMi1AM6Ln7GR31S2TnK8R3bevkqb Pnurt TX8VDD1HgZy/xQ7U08qRW1toxJTv/eDoD1fquHz36CSz+zZnYgrMbxo51qHjJ0/iCX/E9Fqgf6SLKyj3 jj9Oc NhMa2Sy2Bxh7DqL8GsJsci71d1Mj6AFt11pI66h/7rcZzVW/Z9l+zEaG/61YS3CLLs7w3ud9ptjEecjP MZTwF troLf7+h0eTkItCzkwP+rlt/zW7U/cwwM1/Nv222BO4zOiprjDvR/9LId/fk6UcJ/ukgRn+ety9YrtJK CQZMq 98XT7/U7P6/tjWLkRm/BzRjk9Fs76Az60215LntPDV/VLeX04455Pp/L/N527Xr1HyZ52/67YZ+L3pU6 yY1fL nCFN4EC8Tp2c55Ot6Jq+fZe2P31/Wmvf66+V8ka0T2h8duvfOZE26bzQ1XZ3rV2z7Jiumt7U4rJM/BbA jxOXT gR/92oye4a8A2REg/XQGL+MOzd/4DKgrLrvI0pO40/oN7wfpa9WL7I49sa/rJs3qz+2T/oWom0zyCixu vRb/9 9BGGX2Ol6IB2D1Z2n2vWD3sG3GIL8Rid/YaO3gi6cssi61XZE2owfCM4xH2d4vsXIO+6qK7/m6njw0k+ fgLjH KMUt7AcI62rckPC3/E2bt+rVeg7Kw7bg5oPqU326POE8rOL1YEG4PAYT7hQX1D1GZNWTjML8sje4VUVs H9HNF R85r6Qf33/K7X+duKu/Q70OENIA1/jhYk21HY0ULzWGlQqTNMae47Ivs81Wlg/i85S6FV/04rGzgirr7 Ynsf5 48yea1v+ERwA3KKK+8AKCF8+4NUnqB+K/zGUTrws/+a9HOweZ4jWZXT5Qi0+7qYbzv7iOlUl0c4uAYls o5x4L HbfemCHOhY0tFsl8Dax+HHmcUev50zfuY+er3eHFIzs0g263Fs1e5+0+xhubZuxq/Y90/g9p9BttQnzz vPCWt 3WD68RtbHVvwtyn737+bUtzoygbJ4JCiiMiFk5sr1i6/fpXlLOznwfRt/kZnrzwc7KcBnr9uW/XZ0a6+ XwS4+ N6joB/CwYA3eRIDraveosA/7I48Z/erV+g5cnsrOzYr2+UjmyXMbtVrydM51HV/cMoDi5wn6yLF1B0Vs n8l08 e+in++rIm+OgkHmhEqnP9l/tTnG9y4D6At/1cbYpK6Ebpre1frH4xzeOAc+OWEdabbtLRQyskdi7h1Dg PBvuj oo9jiH0o6W1WG63skIeN5Irdds0upL5zoxEHi+TVQcttkc3fsI3v2T4AC33ffVpG8Dfclu5oaE2e3U2A Xz9os J9sJP7fcQ2d4K6Rb/1mnOeKZJ24pJ5J5Kqjzr2hlH3bvo7fnC7f1R4B+6PB/mhw+2YRyi7T8jaC/dHg8 x8Njj 6gOI08NB3erP7eOV9dxF4pBZ4ylU5b8F3D+2DO6t7pKT059T0Vdw96TJ6kzD1f6V8O+6PB/quo2RnNmj 8N9ke D/xFqlgDUNz00C4H79NA/NNgfDe5/5NW1w9YvD2Yxxhc9s3Z+aLA/GuyPBvujwf4+Jf8/mC2o6C7LOY4 kc3Ry RITcPAkidkTbWyvZMsUoDKOyb4OeWVv7ZP5KMKWuTJexUD1VV0BdOGW4K4U5BlC3fVFaNS5zQ4YrKyRa ZS9pb OraY1HexWHTMCHWk36ze15lpmFxDVKtH65tm9CYtPNrFHUoI4nyCII1TEUwV1TumwxfKJFNCzSyWEuaT DAwMD BmZmZmZmY+YQ2ZkJS8aRXySVEmQ8zcgJmtaCWlJoTyS4opxml1hIJ0EHPzZK9XvCt5QFTyQy9ScPV6HH RlY29 bKR7OGg3+MLuplQEjHW3DZrxF0Y0/wROVziiYsYcy2T2BT0ryVBaMhT6ZFOteOZDppUw5aUmOHcZN2Xo 3FPzf hIZ1mpJMTFOKoctY9uQNFpkcpROjGuUWOMPbGMuiPoh/CUf/WFtNtP1oxxHlU0J0NTS+RBvytlUBJ2W6 N1Fqa qcQFZ1p7eQau2Mx28vNkGn8c6o2yfh6W80Wkit5aIlW0xRCV0h/dTM3dxd/N3l+vhW86PX0znqgf0Xa2 ybPz0 5gx2z1Lqw6ed5c/Nzk+hkH28OV6+emv8Ef/KODeAHp4k1Mrw+bvP+6yfNzk+fnJs/CFI4ef8c62rfTd2 3ef93 k+scA17OIn//v7Bl1cpQzq+fnJl9+yToru4d9Tae8gv1h+Z+weD64lyDmn+fnJs/PKF0xu1v26daJr13 ef93k +bnJ+6+itV92vowmh9o5bberx7m4Vhy0vi4g+Z+hbA51nzJtn/dfN3l+dqH28IY3lotBC92f/Nzk/ddN bilingual receptionist+bP G49uU6z7zMQl6e2ddtub9B3Hzu2+3OT5+vuj49WPj1jt5k/N3l+doM08KFhZxk4+3OT5+pom17Sgm+bf PnhJm 9/ybT41QS6748y/ffy3t4Lpr+bvP+6yfNzk+fnJs/HMG7uz5t35hGao86f/Nzk/oxC7h2o4Fq0pfXve+ fnJs/ ZRN8lj3j67fEqj26v/Nzk+woS82SW8+rsq27Dek+fZO49dK2c0cbw2PjndcA95eyLn36gj4d0Pfe3vu1 y5a+b gQ70owJva+fnJs/SCX8qvin/N3l+yuT09DG+/Tl10xW3qBA/mYWGbdmox1OYyq0Yaom+1TlNrPX5mNBc wz/4v cwCy2vQRIQ2ark01H3BVC9gxr7eKysk8jfCWFIF0OKwrZ7y13xYtq6o9fxk0fmil208kiVbgNg0zVWwf 3pO5P hM6cFeuZG/h1A2KxNzj/NoAVpJMiTzuqmT9Hpt4Bc0dr890Ernjf71OorbBdfYfJ/KSn8+sfwOcHO/2K dDs59 mlfohn5jx3JbgZjqZk2+xpf2w2hD/J4+paua3akb9L26UFopizx5V9RhfxQORPmltYkw5PB/AlhrsRn7 55kX7 auuCIvCtZNsLceMACLhz01ABeRAgZfq0C/wu2n+U7j5dacC35Iyhtqe2oj0RPWKZDpE3r8VbT137iWAo t972x /RUG5HYSdjJvQEUgG7+rx3mzoaFrarW5x/nkE4CasJOopuZqJ0aDK2xGS0NaBENHwsdh6cetfPN/P6Y/ 6O3f2 1VZwScH07TTA9MLKIVjeg21NRYCexvGT8Jrn8jkYuQqxfOHtVNAbi++UexSYVhJ2hoao85iy+4WNKSpT xtilu gnkSPXn2Z+QxKg6aYkjK8AJsNfgqrGooB/RcaZ5ZJby/Cg0VRzllPEtYmeZtbOeokiTQDYWPOvbpYRYu p6EjR MMEtbyEpeCupRmMS3J8TogjJ770I+t0eqmtnsLSu/M0cdu2N97oL9FS7RapzSLtKryxduYvpH1c3FZky ooSNb hGnZ2scommABSieJtiuHnHq0BpOSCqjTPG6nYiQ/s7/NIEorYtykjpA8ehm1MEZfQicXvFfKfrIWCSiM 4aIxl YmitpJmH77oL1IqlrjJ4i9+0UhHqpbP14eKnY6EyRQLYi6hoorpxtX+gVs8rhUst41sH4qpi3jLapTE4 GpJQ9 ZOhzDNXxJUKxy1YjpU7fAqg4pdVfV/0COjT1FDnnos2EdPI0JQytnuCTlNeUE+9zYzrPR0QJebK7cKRE XBJFZ 9jvM+JKI5ugf1JTgH31h/JClouCngJ/O+xKRww48gf89NPpoPpgmIqWChDPUy9jAib1FxsntJ7qNozxL RMivY mNQsiLj4M7TImZWXWFlIH+ezh8F4pFhqf52nBoCiJ/I+HtrMr4nJJuUQ4CD/If8+mpR+yNkekPrQISU/ +rliM Xc4Xdf4a00GNpppNqtkqqNJwZSsM3i0RK46OvUbBRD15TRKui3O/TTyQrJzJ1MY5bOs+AOpsdb7UvS5Z hA5iB Neaf7pCCrLcVfk88JlrnaUHkHN30nQ10/BkJpDk4Eq3CymmAyAi6fIaKKM0fwv6H5sMN7BWy3j0wa0M6 DTUvx xlMp7Jbv8+ywZyy/gxDDZbV1Tl8GcJxZaiMUApFEKI2R/MfJS1nwK2zWizZ6xl6ZEMm+AN/qoK0dHvlL 6WiEH kkO9vKdcDa+4Rmfd7hNeY9/+O6O5eTPO/yQK/WdVzRh0F8YGmzOa9KwvKgZ+zCBfmB23RX+elyplQm3c fszyt 3WI53TQevP5JsDTtcC/npm+sM5Stxg+6vl/IKZ/Tq8MCq51Xoqn1tL8eSoPy/w7YJfw+8aRxyYsS1UJ8 83Liz gx2tl+1NGAb+8/EZmyYY8AI7bmk8fdqsKwQDEQ6zUOoSMSgZB/oJ3IXvBmumgK7pvpa5pscDlrJ8+9UL ADSzW 0FK38ukgvAXbA1FPWxW+xw2ILfPhY9xpFLX6NMB/EBONIE+rOBXlL+2wargB/FoXaxPvXr9P4FXXxMXfsEB jkYzg Wv511p8z3ZcFna6Wgt4dOxbA3WrzC/F21GkQAS138njMhr2vzC2UauW9pRTF0O4cQ8c+LR7kA2CSs4BH /CrLu a/tqS3anIXI4KquyqukYQqNrJMkxuDjUpm0fhkIp+J/XcA6jjtXJEJh7oHI0Ntt8nz77i4DxsctXD5GS AJcsC EcM2CTBzVTg+j0uihPEDd+1qB8v7H2i10FlkUOOFaYCa/hHRUcKxPsjlmPuBmhEEPo69FF8J6DP6QgrS ugwhG U+ISNkbKoeOih4eoEz/q9HzecncOTLMWLnT17Boynkt1Yax/zz5iTU0sxaUJMMWMc6fomSr10E8GRyG+ alD/i XF4qVPImGe52zCHY6ecBUaJJqCqD4oxUEq5Rjcg9izv+UPbprpx9+ftvxYICqRXql3A6gBiyT7VBQDj2 Xw+kF W0D0w7hWuT/ND5w36R5j6nkdvB4GhdmP458OSSAs0r60cRaCCysyZml06NtJu/VE41CHHj/4DNqTqe3N cbc 6IP0Ubl7Mki/Lj9B7/5IjzUpxtgQjCV1IMLX2UrlanNuBBANeUAjpYipD0TMeAVBXUtGQW7qRutqsl2r oerH8 QYhxaxWcng3t/QXsD/nDmRDUHS5px4SeP9SAhoNE+Yth3Qg/v17s9lr/LcswfECtH6ZsWcgxr+upAL6q sKkDS TM8Nd8s/Rk+6Spcb70Fx+AVjFiwYQMr+FFb5/nnbIiNgEmo1kCCpHlhs4exU7UZ6qQy1ImDznm3LGauF qBbwI jfvrk30j+snN5pP6i0AsdlrsS9qB3dxv9kJ/RHJSEXUCyoP4DNXx/QaT9dXvxfmBGXVreOxd4ZhkTwH3 LzK3p gcfWLplfde1h0c5OiARExL/+IJEICfhguj/CzFlziZ1/AOhMdL1PK1VPh8SJzjFTijqvFnBigMxefdwc 7dIP8 dvc9080S+TQhqqQ3geWufdtiF5Y97RthsaDuxY/RLNXrxk+PdihMxnDSwWYbS7+E1pg7ZVtBfxzaLgJh v4O6C Ys0E6L1ZqZ3U8z/GZgUmTx0YzbTc8OP+dn2gxI/cb6Dz0BKNeg+4UjQ1AgfONVDxYUqtZZBpX/FUUP7m 9V/Mg qF/QKiCMqPHmYFssoaAGwAHf5+IrmN/5sjAhljz3iEUr+sFfJTo/zGmrJK/AcmRHRvrc2v8KVWi8attY GLJq9 hr3EUyGRJ6URGC/GDWot9/c28XT5J7SulM6MEMMtrm2GLNfFDkY9ykg4v79cwWReKOlCpyfBJvVL+grad intern 2Ru69 REt/awtlwEhmgIzwlyntIguZ98+TkjpXkPDwWJt73QaH2+/v6XjQqj/siYtLK5Gmb8AmgxOhtWOtzAgX X0oys 8anpsDZ0LqmibgNbI4LZuYZ6qyUQ4NZyibad8f1Lj3SViahrIdUXf0Z1cLXfzJzfo16skKjWsWYRvFFF 7L8kl Nfo5aEJp428PF8DQNzmijfxsbzk48pZWMNnJc0z09wc6xfk+/T1qMfrHrey6oYieF/nl1Bsdd1GXvw63 aBCZT sw9O2hV+JOr577Bdl+Bzl86l4oJ42muZ5wn9OG2NW30B//Fg5XzWuW1+ukHo8pY+wy0D+BWMvrgDqZrG tlsSQ 4I0fF1daRho3m2JeTh/oykf9biMu3WiC585plgnMWd9btj3S8Yf1FOu9QYfY6o4HL1V/kk7EI9s4F2CY y0F+x HQIjnDZ8Pt4s35lWb1O/Pd5+XuUq8+D6dgua8FsBVysDnMNJpAcYoZ48yhMzjemsmXNRff9//8cBQZC3 aA5D2 TzakirLijhVLD7hltsFTD5UNshMI8KG/ALfrZhx/J7y1+O8opjjI/q9rwuo7fnJ44U5Djyvr2I1a77Hh hYiPa NXT4zI5i3cXrCxKuqrE7G4h6PK+/xy4j04J64GdvqtYbfLMcf/Dj+D/joHW3C3qqBiAhhROHmqnXWga/ K/JJx yiWTZFjzy3xEjwZO54fk8FuWeZzAD4U+UPy+UOKXID+bYbG8eLT5f1LeylwuiNn+792rrgG/IAtfKlmG n/ELr f/lVG98IV5ecZnHzExTQ8xh/HHH5vroCfh6eI5WwJ/Or6T5LN6ueNBAM8RQogpyc/4q+GZsV4V2mo8DC uUvls oXuDjqg1TQW2As+IUV/XJ2KD2lsjh4D/RTC0scjDRky4mvlgB+Pu4TuhUA9x+lGmrgtxtc9/bo1W8aeF EPe6L E7oZUMY9zCPsuCA3cpcSgsTPhgl2+PR8N4tooUe/frJis/DP6hNsLcdkyx7AFpd4/YmhXDd0O+7CD+l7 WSh5L ayVW78P8A30ssukqF3C8IIs/SNbYecJQF0shK35O+R8TgOa6yTm5ZpdkwPKSArcIbZA/gBxeGfgQXl0y DrBbQ uC/UKDHmzuz+e1vUi58YrCHpywEXV2RgFSDQAM/InTcBnbUZb2kP5uSU859hVAAA/qvJjwJDdEVHWDXn nTJl4 VD+7tZ/Z4G4hpCfg1TsQvKXOI/YyjmDVZBTLspg5t15F9qrKYp0tAE/QgJUlIZb7+oI9fvBP+breC332 +tSgW /TtZ6j++PLL+QVZVCWNO2PbYU0vxt4WlbmOi0Q/smH05WcyqUA6ZM+B4NWigOWs3HPVV5ytPD+EQp642 lfs+R BwP7M/Hjvwn77/hXbYMLwHTFw8b9my1IHghGFlETUkC1iO2t61RCxlgE13hxWWnujhA9f31hZ+5pXGed 4mdn3 YOTCbcsPU5glK85LWzX+3NS5r/PnpLlNlcvcIN4NuPce2LsROntGnmReDIC8m9I0PgPDZ20RelevL+OX GxM2N buaVdBfubwx0s7FRfHYk5Re4Bxj4i+x1KMGYfJ/B5i/wUy1KdfPCvLq/ByNA1bGp+i/kxN2l91zt2UC9 Dv1pc qv/rpP26F+2E3cg3yNqyKsvsgnRmJjlcnTx6p8CCu/eX+uxJ+zBtEHdUpaljCH9S/4qAjq8PVsKIqEfX wP+xO v5ESbcq+2ryCd0T/HQqG/YJdA6QfTk79diqxAedvZIMrR3QPRditoC6stoun/W6DZ0NqQ2wUS4pvOUg1 +tb+b LSBfZZxlAcfOfAx/H/fWSVi2AR64zdm/vtEsqcj/P1HWcHvs4HyX7/pN7WUd24in85muUoCVyZhEXoLc YDPhU pk6albT7mXXHVxxDCJdeC/8CCLIwsB8hvcego/u/l1mXGFeSftEKMq41rgcBEwwFvlRlB/QdtTzxjhZz vv6oz xxVWf39xbC7lPEF/Gpi4Ri1+P1I9q383xjh/0EgN+0wcHlOffsNFLwW+490Lpb5voX42rm1r/GxOyQTY WTvs6 qJ/uqW3ektlPOt6oOaGtgj/K+OkUKOd0sZo4OGveYOI7n3l41roJCXj0XzUeX0P/y387sgVJiHtHK/mongolian rCcq8 lC82qx45WhHKFUUPxiPoqipvkMV+A1D8tyuhBfSdH4a60lw/wuW/aTETg98fAOZ+/oSDla5iAJrtn/ID qUt+6 +X7Ynd3ONtQnVgiiRMfTCV+H2em/2WvM+e/k23Ik2t+9ujFxtLwd1uh/rMZeuoZzk/Fw6QLgCpNmWG+c MKfjb yUL1GXBmcIKi4ZP8tgn/AeZaW/KulrqBj/E4sv+roeQZImXsHIkuzI66ld179mnnp3eZ6CiEEFdj/9ec +0kN+ RvYdriYdV20H9mW9hnu6y2kd+ces6Rj9zDolHD4qn7pgO3v/JDrms619wF8/9FicaOQLa0lIEZ5rFbx9 JSxFf tOnryvz+0i02Fy3kKD0j333D/afMMZ4qbbV9odGElAzuM2fCM7zhHw/mQcb+ybjV+WY/6Gdj1TwwXsr0 Bjnxb HDwJKzc2lB2wKUxXm9UystDKDk9r+q/GkDyw+yzF3YnIBs/BpNYwdckJ8njIenuv3Q0ozT2wIMaSV6O/ yyP+A 4905jxUozzwTbjnM4ITTch587cPHSjepV4eo+zBOA+PCF85Eqd95WL3McTXogltgMteAKMi7V3vtU0j0 wa3S+ HnF0pAje12t1px6O0K3kcu4id8/dinKsM7Bwt/dpKD/a/CWsuAM0c3SdeB+VAn7fGq75nb4r1IN/xxhw Z7VtD gS6TfmJOb0EEOFZ8K2K9vv5hZ+9MPJhJjLVYLXNJfattY9/N7/oBjCxiLUVYlEXQewgSjUueO5r2f5h1 Y/iEm GpXG20hB5/5ZVkMxLvm+/fHxaatnC4Hkp9DieGin9K7c65xJ8nF4G8sKA7q6pYpuZUPVwN+zAcDsfZ83 /kMk2 d+UujlaaJ4GqwG+HPkRns0YOV2q2oCnHp8EcM650Wdgih4swvwPOJygBDSedH/NnAV1Zs4TB6gr+9Yu8 bL19l fr/9S7KKOUa8WzApz1sRda5a9Gwubw30k4JDgy2vOJlCXM85zfUetJJ8Jm746/4Wp5Ysucsrm67SblXk k+v63 Qnq5u4o1Cq5ndGyf+fnJs/DDW8mbnb/N3l+zdG26SQ3hzwbs2Ph5jaQl46jm7d6+4UpdE30xaPvk+fnJ s/PTZ 6fmzw/N3l+nhI17TQ2ccnza0Ej4mjLs10+/cBNnp+bvP+6yfNzk+fnJs/FEH0qwyw/N3l+dgX84RR4li nXP9z r8s6Lmq+nJT70oM1y6bfn3Aw5ngHzq+fnJs/PTb7+1KOhm64m/Nzk/ahV8r4fPOiimf4tZ6kQh3mrxeO nk6// N5280m2c/tMP/8O3/fa/+I0/M69+3Bspwu89mcsCt6rpiHJeH/ubP/n7/+XQnlpb7iq6RY/Wj5dZzIhK N773G 3/8c//43f/H5/94S72cG6/85jE/OZkz/WV9Q0Wds8+Rg6UIe4jN/eoboz4CFg/I5z73s//hF7/0H33wR 37i1/ /I3eH0xN60G84+FT/98783uRRfx11ki+/6wh//9M/++7/66/EH3/2u/+3tP/tjX/yNr/3cK/CN/v4bJ2 9qfDa SWzYqaqfqRJK6mSUgg/lSyfqtcEK80BIs1FS4+Z//EXLrs1+6O61zRZ//3Pe/+KKfeypev8K+8Rdf+Q+ +8mvf ejKN39/vEO2Zbsb6dfF0QwaCjhIwpSxbi258f6s3Hfy8+vEbb/z1m2++/gn+oxb9u15+6se+/GXz4Y/9 9uNJl tyfl0vfacn6cR/wV/lXzOvmY4+//G+Wjrhw0NIEgp7Gz2e2JezQy/9AV551T/6v3//AC7Me1l+/oSFD/ eTvvg aZ6Ks/8drxO9/4d4094R/1588YOakaZ0iz654xrhOsi/v5/+BuXcez902j4324743+Dj32c6//7De//b 2/+vD YL2y22exVtRj9u/k8PxGeQLo+U+chLvjRaQesVuc/FrEwu4d7/BQKqtePjXrzzeOPv/KuB897Q3/2n7z rvW9/ x8+++K5f/43/5u+25f8wwk3+5tDEnw4tu5PbEEp7OmEfmT+Ej3djoW9KqsUdb/yd/lJyXT9+ogO22URL n64fv 4ETeO9WAOw3Ssned+Mj+XbURimVEJOZ7NJU7CZ16ypux/5+3H7d/fKoy+UMVB0ykatp83OwpDDS26EzT T41Iu PLorXU4LlG2uWA9/iWv6BFNGQVcibb0fWQMQL+ppEBkqH8B5VVZf+s2VvCha+njEyvhF/bCD27Wqzmkr Vy9IP dtxkiMogTF0aiiUPpr5qc/ZHzCrBM630M5ewSFt+VPVaUFNKAj0cEi4LgVfY7sbllCz3ouwqTMiD7CHh 8bNH9 J7rf6wlol+Lr3E2T5CLd99d7i9sp+X5wkXhyau/4cMfTs/MD/k4oBknk11mTbFecyOkLmwRxRHRF49hb xT1qR rvhXvTe8D/qRVKL11EO/kcUYoSGI4Z+urwsQvec+CCxcIqBkkZ1KgWRCr48YZAqopQH9Ta/8jkIjl9pl fxo4z qxNM//CI1jiuZPVeuFu8Ggxt1vdEAS+aPACYXTfW9Laex8/FhpR+ZxL0x12UM/Vc9FK6Zj/SA8stsf7j tZIH4 Rsj8NiZXykVwwNqtTnxW/cS7DMczpSlETulPAFpqx+pZb4o2HNXw/ic/ny+cOyE954KcpnTtwd4HeDTz lNmkp dmYWP8zsBzu3eQPknL23A6PytMY6m13SxnSLn8wJLFCMk8Ho8grXIA/uT3cGIfl+5tKtDt6LEaKcRC0n ab1hy 37QXXSKt1wW8A2QSjOQZ6OFsYMSSPivL0Chjd/jBpdlPi4KX5pXlvGmfGnkztcuEB5JnqVJAGjTZOtUA z+QG8 4VSo0MutQREkIm2aOAOyt4alW8ACHldlrJxN55bPQuntVDgd6dbuoKxrOsMVCDhlS5G0rofixC34WIX3 sEplx 3iwaa28AVlFuK4KnVucP0z3WYRYyjVZhAjP8+KWzVhTO/JJWz0y69lMDMqNZWiwSiJUN/vxuz2ZE7Sax 0+pxg 99nZFnOx/NrJrBkhGF4hs0WGLKKYFK+Uy5nSGVX2gYVpMUjbNgwJ+kQ3XxN8UF1Jwuro1wUynIBLvBd0 cAM+0 hD3XG4pkpSaFsRGRnT1yg5TmjLodSSMFQDHAr2MZmE8W6brmZJtDioyZSu1eXLv+wN+G31QqB7X/MJ6K Mndu8 1KfWrXq2gkfYJzoGr6UqIrvrwWf41e/ATdSyUD+6y2RnGt4GyUM709VsGw2uuw0b98mOG8A7kHTW0kmJ OK7Sh X3n11T3DA8jY4ic8I2hQM/GyT1Gv0Gmw3wGgmrhU6HXRShkjj7UyNEohMwgRz1BeuKJ8Xh0rB/EKo0CG /SmOv 7Roj3WHrlaxRMM1rA/omXbF8i9ZykuT5MYJ6QP70aL/M+YB2w3IwonsR/pn8Nm3TTTT6Q+2iGLxVC0i6 gjjjt t76g6w00NKB6G+g/epc8Lmmx4K/nZfWBOy1T3l6fDulsn8yvsOJ5cijrnaxBRr/GU24o7RFfHn5500iH Cyqyk nx5SmLa8D/VPkhVjyEb4N0iItQkcGz+OJgKyIzI5G/y68G/KYF86ItEnKQm2R2mIEWqH0e9kdj/KCgku lWzu8 dtoe4P86QAQ82xcn6bmbpNIEtMPUfXh2NpVfE8xdIswf178Galny+EFubhcpMZl8JwEghU86fBmRUels 5kabb d7fH+FM3rodkrG7E+piy0peZhf4956BaDb4Ur7j/zZj/rl06mDZciifoqs4Nq3/eVW2pvo4/vLWtk4Ix p/lVg N/zK7I/kHY9m8G/fT7PJzo6z3J+qAnykuS3nx/2k7j9Wy5c7rgwfVg/W6Ehxf7wS8coWZPqn6N4bN/sv 1Aqwu 3L/ZPb6bTVqVTix0FuDG2O/nc+9qds/DuY24e0774qZ++4xy+OE7I6UpXgDOf34DtA/CCZVseulBM7i5 T7S1L 89fR7Jyti+PBpogzbs368MHK+xdc6edrIi++D/34t475m+ehYn3nt2qKJfl/0u3AIu4W+djoNgwpi2vZ ntT8Z aqkemiHoIsBh0micQJ66QXwBjd3WbYn8HiDq/JmL1KykpVEXI3Lng76vWGIAlnWTCrB+OfE1FOlD/SPK /Dcl9 qOanGK9urBXk3tJ/fcoavokOMkowRLb5mfbsvMddG3yS3WwY/HphG3uzoQJmkdkxGZouKbKNqELtZdCf DCsZe nDAMdOEFW6E0bv8j00JIlaZ65/CPBfSZAfy+3hMdk7imzavc5yZ0+Gy0RauGIjYrN9NPJgGAJry6NhOz Ezqgk dnjTEliu/nqEwebOIN88HhQGoXH1wxqpB0vZtj8CwXzvg8W2uVtsNgiA5RcN8XnJY0HJjaNhvpfaBgHZ Cv3sh wVf6aIHcfT/9pgH0Xb641Ia7rdWO/aMQ+SWCxIOmxXPY5yoODRKkM4XGenr0n2Muhpn30UJhU93j5p/o BvG7r X1rRwM4gpx8yjHxpuP/TrczJnW8oyn/eqogw6jMq4PFcp2/pb13wo635+1b9AuO48r9+ztneftz0+XwO /+BQV IBmNsh0Jt7/3R1dHh4RxVZ1r3Rmvh/y1X8q3A0e8Mrc+OjPDupnQe/lrT47GJhTL81B0pB3Ng228i2Mn 09NQZ hsu1gL570Ut2jF6gl+d/CVbcPn/Anpv+dKvl+0uT/gHzowaeC/EkerCc/ugI6C+gCbjOzY+S//beNHWW JVFbD 2zNmN68JRl8183MOi2hB/nz9w01+/DKzdp753yvI+6+bfPnrJs/PTd5/7fXfx97+fnaT5+cmH/+5yZcf bvL83 JOYl989JfFg6fWQ1T0P2flS/UkHnGnI+JygYNMNE5IU5B4ntY43mWOz88sRSBiyELnfjw/HYvr9ki/+e yChly GKr2ei74Bkxw9cP7bFK22yX+oIYHJ7B88K7IGHJYUJ1xPnz7g34UdG+W8eoh3aj08dCjmwlF/BcV3/Mw 6z/7/ Nm9yI/XToMkzBud37hN1dSH+fYYjtDeE1P7S7awkdgcNM5f23Bb1Bpfof2d6f1TGXejAaXQ8PBXFcdIj adH+Z i65P++lg/tdDqqfWTH0MdoOn54CV8cVNVBqbn5rmurRq/ll+vgygx7MAKJufzCt2pvwu3zt+bpTnnRxV U4HX9 XqCCWN+yiM5aeD5fkMjO/q9SzfPdsPdskAkgWDoe2Faw2urJcr425QVGqAT508q+ibBHB7mal3X3jTyJ 7QhBB zeOgM/ZKO0bbsXoQ6/klpWx8TdZwN3jWe1dATOydOkS0/Dk4LLZEGHTmSsnvqvpaD+jcFyf5WzQ9xILE 1b6A3 IQGHB7QPktQ61po0OSOjWvC+T7tUxfIoX4FSNyXsdTDGUkks1pZhFvr7kaMQHI/P+ZvDXxx4MPr0axua 76BRd mMfy2Y4VJErshIf/UiAalKBfQvQipL7H7zThI53cstqUybFr1c9HM/o+rZoXjo4HFifJhKwQjI+tlt6g nSXns QonhspRg3ByQ8ulgUf8A8Z0dscTRdLXiWY3Ia61wnk0+Ithk3J5BfPzhEoWKFND5J5E7dPasAf53E8bx 9xFp0 1exlM0KawyzrnzyrkENe4rZswdoqePWmfFfSgmb9OgSZNuQZu+O4+ZiNAe9fI+cv9hs9AAmrh5WoESPf naPBR HaiNKgdR+Ni5vX5TU6ew3Ry6FzT29dLuXu5k9O0naa1GXpS9sy23SBG+eyE0wpI6WqLaYaD6zjzUyKIb UvwJB RE+wlaRIXGrZ1xFkuc3OXMUxYMumj1wx3BJ9Im1B4JxoMzQh+tuJ2meTX+moxO+WnHsDJyRP13WGFdFu i49Cn tQBfr/1/l0tFbPJIHPhsMGd5cBVStZsQqRZ971c6fdTcM/74lwBDpwpPB1EEFxDsD/0Jnwm7fZCyy44P zrGr2 y7dhDKCyICz3sUtB6Gp9lwK8fdzRiGu6kOIITzt9n9j4Hp/15g8nfJCKxdgZYcKIs8TWR5psxmN9wmBH 0XnhO uuKSSJlImguPea6HCg4aW/MB/W2B/GAx8taWJyA8Y7tJGO1bWRoodkwU/O6Ch07NRQ+7lPCXocCTj6QX or5a6 8ZrWiHGfj0fb/u4gv+FCXWvwIzaozMBk0F7Kuscs4+Xdrd5aU8TVkiWxvsOgWjPbcl0Y+LvjkakN7i+e MTGD8 e1xyOFXQHGjD3lQhkxQVdeQ6Z/P2l+vZH+WF0lgy7asrVwP379iI6R+iJ8F9ehoO5eyT/l0SegXmEaip 7TMT9 PL2IGMVOnxd8ykiu+C/A4H/Mr+a5Xw47iyPnBPMMRDY3U/mE80cTfyj0yxtbDCytiGYO3d/Ln0w5m4Ph SM0GN ZKfVmyITNh96lcAQOi08A/Radha+m+IlWCb/+1pOFQ1m2Dl37B+qoi08zzhJlvqFhEmRyi5qz06XDCtJ0q 0m3Bl +UF1gS/5ALME/ZvCCjWzbtd0w1Y+BtA622L1UFNX7BWwS1+DXoXwgc6R2t6do7C1BQZn/HhXbzPryUtd dIom8 aUMpjRr3xVu5PwL8h+mFpra+TQ33dypW9rXC9vjMwdqiPtSFYMrI7c3CS6o2zWsu9Ib276j3zJXkkDs+ 8r4lf K/iZW0ooXdgYvpF0SUfUmTAxmsrDqqnp2SOhBnyW68JIOuBy1TRd4JmxhHV96Vc7saQ42P33PRG7qyma hPs0Z XLBfxLmJ/tbJMv9PzF+IQnBk1vzp/A+W4Epi2SCXP+hNdTeTCdF523YVcaDgW126P1CPKaBrf7Ry1dlN marcella+C/ pnGEV2+fAW7sxqYiz+tTy96gpcyZaO86CO2F/rynKy4nYq7FEQCESvvzLNUjN0WUo6EQRv1zdS2YWYBy b5+hc WVomsFMWJ4UoFLUm4F4mb8EJsvRmys6HiTZGhVTMgtIZk4vWmyhjO0F3B/xqchXwH4OezfHqKvHuZ2/b 1+Fmq kyRihFXRnK4zDRrS++VRMQeDJIBATvB4/puPeodQKTF92uImBOYXCLsH0591cDIUUl9WiGO4YX8i+Zw4 baWfa ik1XK/w9ZTEqihvvUzdd4PV15uKzLze49+ayEqTvKj2Dei6Md11V7bV/rv58ywY2KqF/+Hapn1jwWNu5 BJTS+ sswTGK8FILntdeqcJQobJK/Ij+k5eDO4HfMSQ25BGm3xheq9LF450O/zfKAC1BxJPl/uzgW2Qy80gP/m FeV3g Jdi7e6G1qq/4rKw5hfr54RWO23Qx2W/AZSoRblbNclZ9WiHaAe4aegkrvY39L3g+c256ND+hX14OV17L r0Yop dDddtgkwJUy8jf2ksdt/gZ+ZFF0TvgS57UM3JC/zijTNFkmV6UW8OEWgdQ/ZRSAt6HCHSWlbb87HDgHj 5n+fF h/SNlnt/3dh81EKMD3WwfnN+mrI/zTy9ip22Iy+W/a9yvfeE4iK/s7W/HGdv6UoNgD/w8upjOxMFzuYO Xm6zL 6w672On6GL3y9izljlZCQe8Ryz3cScQ5EqhGDH2g5o+uUVB115CLKisJ4wNpiJypGTf/lvZvYurRn75s PL+ZF m1qV8pAAybXOpWAYXKr9ni5kdH+5oA6zKUq3eTCD0t6lLTHF348G78Sq6jXaTQ+FF0kl65ZHsCaPpTqo CGRJi vapvVIJcnoVt0cTFhlvlwnm6kZvOA6aV3jqIsH8E+JnYO/fq7uPZYzOz3aQ31pY3sPU49oG4odh/HTK3 1lPiK 4Tfw++U4C7mBhtjH5+6E3meJfx9TUl06yD/hadQwfPmZ9z7GyUEienoDYHCNqqCHyEZKMPOL9P5URHNx j23zs RlOVaV5vkVkZ/KRmgtbA/s7Q8Lom7BoLVr5tX0KPaqWRercDQXsXLDo7AJG1J6Hqn569IPfa1slP3px+ kgM/U y+MhxpM28KJEjw9KD2M158gToQ2f/o0qWD9cjN72YCmbDbt2bC9UtCLiY/csIwB2TozgalA5Ch6AaiaC igU/y mVZxEXYnPOaQVJA0T8v9843VMJW38S+d/1OiwM36dKz1c2Y6AH+fWUoqqnKWub+xLmfjoUV0aYBYGFrO TnNeS 8k45eHh2/9TpW3H7b5uzgkV+atEWRx5ZxxHKrH11kQWWI01TI5xB+asrWM2iW94W3C8avKItGMpfDf45 SZvB7 fkTG7F3JwH6ig5qzTrTb/Tskshz4yUXepbR0TCRILNQjr9nHMxjZ2U9d9mZZB4oOc62E2MpaRy2cpc3r pM0Lq K8GGcBMkEd+F25/GZ2mSztYXwkSbngIsOHK8ArjF/yIoqXCiV5qLkCVlhYIu370Vy7c5islJZ4FZEYLE C5Cfm VIi67WP88uQRhWnSU+EbrK3kL3GzklXasmzW/ud1qtPkEAz/ENptA0mAD6oGeq1+tYfgzHmQI/nI0IZ5 PQrIP 0ab3Jx6G+hJVU8uszW/JbLHkzkZ3AI95c4mTW+ER7QMbGkvBl7lVDocWBoaGLM/zNfyzdOcd630G+Milly fR9G6 6Jvb/MP9xDTH/EzGD+wWuvYqiRneavj0NtNYCq36CAYPDX47p/m1kJ+Kn4uu5zDSX/XMUPkSZ35VKh7O +DXwt Hazel+sdbuiYNbzA/HQE/zepcOFTzoHMRjZ4vLpXQ+MN5D5lpiQhR/QchTcp0ErQ4nE+GD8cKP22W9psDA VC2P2 HQ/ndHCF9u/cIx2xy5F0eM2A14id09Iet3UuXsw/b4YYw9rMZxd+OgXRrk4fN/BI4Qah4Q56u1jtI+0/ Wxv1r zj0nae6Tx3gk032K9AI/gRghZuQ7QgiMg4p1ZRhu7Zq9F57z9spB1W3Wgmq3u/Wyo2zxCDvvxy6N/ko/ x0zij k+Vs62QhAxsansSK+d//qy6jfN9A2O+bs/D0BQbNU5zdTvesHcB1bx5CVMXNiDZj+C2t72F7u/Jjf0AP W6n56 Marcella+kyf3LvrTORaWxN5TVko9tN+7vhj8Uzvy7gw+d3sQko8c3w4M2kID8QIrFgfP3BYbHqjzHl6wefo7V uNqPc rfS2i/jvR18d7im1LqU2DS1P13S14qZdpKEc6NXOIAR8a+FiFttD+p4xhPOmiZoVgGV5RdmOkPtYYZqT OoKcn u3xoMZ+y9RHsa3FXmpDFoQJtAtaOH31DxmtDq/PBZX/G8EOy9JpW80Gqk3sxAGAAnZ1wlSCbY/5FoQor 2q35d dh1ooyr7lXh8h76CGpnYP3zyhaAGF60VGT7yhihTipGcPmluiX2xZglp3cLBKNbYJgIhCiRqTSil3oSj 5MjP/ ZRdmW8EbE/2TgBeijiDjic9rxlqa1YUTHS7W6gHEQA/f6indCBcQuDx47RV8aXl5/xrD9QJfPWH+ZD6x D89eZ yabuaMv5a2e9+x1dPa0NzhhY0w/7fMxQK4k17lo+fnJs/PTdc9/xuefA9u5b7qOy/NSP3mnxt/N610vp q5F/X pg4R8Gwme7gl2tzmng3v/L6e0d3X8Fwp5gk3mrv1ixI5kR4WT1vLb0f5Yoj+uhppey53Ermjxj/nE0tj B4PQh o+OnTyd/+rIK52wyCKtftQ9HZoOCEZkU9pQlcSKunZXTs+6/BCHodY1RsXeCWw+OP9/+PlQ9YMt/g2zt +NUD7 DiJJtczXz/Qd09m6Fik2xw/NFOWb+d6in9nfl3fuzgnuCvHVIhV5mEfO61g/EWDwTI1enYlYM9/qfxag 24X+a QQQ37Z+PMdhfzacaiUHX+WDepWCmXRtxYp1jd0yiGn2CGt0ejkcnuZq3b94rU/+tGJoOoRmFpoDvaDnu KPQ6O m4sKfzhKbx1N80ImApl15b5ezJDdbl/ZP6ojs5Ae/uNbRrOgbzdB/9/NrHIBS8l8UJm36FH3GS13uDEq JHvjt s3hbO2idL+VXx/HTqgOAQ+wojWsc5+PPcfylTaLlpwp+L57fqlvaJ4BSQPtFBKB3DqFUBvVPadyYr198 8TuMf Q0bghKIC8NrwLr/xBDi+AoPDrTBpADC4FhlV351OWi07jj5yteE9vY+eQknKyZMEjse/Y44nsr5KPuwm MLzft xVv2agTE3GA1vN9WVzJrcRIf1dKUe/dReWXLSl394+SILE8DH1Fva/i/sLmjZJ4mlrG36iF3NN3fGOAe b87/T x05fV/dBtIoNrcmjqN0jGyhY6chpRgV9U7T6mL43KRgjrGBthYE0i/YSK60BRzzG+kr3YsmkKzddmnkm ovz7y b9Fkk7n8nfb+qggU34QH8W5T3z05uz6FD8fmIz3Cb2UASAHWWvWoG4SSHCXkebYjgKAgyXJuxic8wpTp 0Cy6S AGWxNc1phrxQMMdlcMlNaUEo8dDbq1gQ0hJcob+Yuj8hB1Cce5i46aiB18mFufezudPTPLxkjQ0CjnI+ FF6CH 4mQrUVKciAhjm/PI6hGRxCOeyXeVbVUxwquppIa0wK4rnOkD3HtHweOy97/xOqdAAi8eT7Hp8IkanEE+ JHYH9 QJVHv+BbuXjP/XS9yBiOT6Pj0oljqGWGtLOcvyOJ6zMLoq9z2JjNpgZVYXnI9o93kENZjefkr2hR9jpU PWa0+ eGQjpsKQdt7c5Ldfw93/veyPa2uIiHeu0CyQetNDz67jmE+W+PGKDHWgIqzQC+RL8C4qFxe/7QgXkBzy E3atE S3FIvtWdI6kpiSEXWPiC/58Wpp7Xpksp3rYBX88UP4L70F7sMbJ+ZH942sctFZ4iRh01cFTI4AUkVN+W 1ENUt rDiMRyI0scbEmW0v4fkpaCKRY4H6Fz9k4RQzCqzV/G8b8G+eXjpxXrwR/H473sXDu63UKD04D+B15ZkT SBQkH A/1HGz1h+QRMsYTjTXBoW/KRdN/Xt2aKXpeFPiEU81YRACYQyKyqAR6MfRcf/G+Ovw6RgKpAe14gXvv0 5Gtjy Q5P1sL+y/3HFIo1Tnuu3CPbjs+fqNE95Te+MEVeVS1cfj4ip8zX0ZbTowh0WEghfPR95l/AI1GLBcWI/ 1Bzkw qVz9XhdN0tr+e1l/HRk+LO9yksPRok99kMcDnoZSUNw2R2y/KMCCh70FBUKxv3bQf1ySlgrkY5jjug2n E+8xb h46wVzF85cHM9GYPWRtOEHOyDb13chS/yiMr+lBcdFjqBolkhu1Iz9pPRC/IwDfnP/XefjbVB3jFY7GG UE6oR tzBL1BQa/xiN6Q7FwVEP3fqZQS/sjUWZ/CxW5YA1O/HiHNLc5reh+k/T8ZfS7l+vHuSB68LfqWqbxzJ3 9t7GE KcZlezZ6E4vdT4GqiKt8J/CDYIZsRKmt/67L+POJ/VghY5AuLv+FS5bhqFF4p/w+n/DbgHGc6Kk6u2GX Yu1EB zORAXTpfK6FjyX5Fg0JC4JMEgvSiRUta5n/W809OIQg17/Xo/h31r8A1p7Q/VdXZDXaM+k2g/rbnTBIy vz2Kw U/kKXR5wAhN8zi8qfdS0TgTcRQq4TIimFGE+/2MBd1Ff6w/PlhlrjDbPx+g3SwBaqpzv+/nGkuMO1hgI Dlb8X 0x6dSmERK2SvqlN6jo55HlX9SKkN/dMU6BNgOe0rIdFioJDTtMupivb4x2RCoX1LOv6nT0Da+cGzbn/P x5/tQ Ddl6HyrefyF+tvygGBSD/Zk9qTD+Q90f04RyK/MjyC+vkY7HGFMqisnxqdvmY6ForS8ITnCk+F4L870P DMefR 92RncUr2qg6i9TyXb6RgVsxI7yyi9/lxc+uvBFaouCo0ddH/LZZiP0qMp42KHAqHXr/QW0F309dvQ5kg whcu2 5cIYqXdV7nQPtKWraVvy3x3O6hKK/ST5hi/NsU7yZR94WbzL3jd15aExaqD//dEwrqv/I+J561GNAvV5 UzWCO /j2M/nFn8dEgpWoszeYxs3PAJGU08cuczAfBW6qTzJ1efXBE6AIY4w4pQoF4++i9D/g1eF9TA1pj7k9c vwwWG Fu0jCefvzqv/4X7Knnh7YobWHopNEEcsTt+e9At+5ODka3oermW8pYx3hhsJ7X1ymRbUNJln94K2MNu+ GVrD3 pd2cm9uy51Qx74/742uzIvb3il1yeLQlIj8jdL+tRF+UO2w/TtNn9SczdtGwMxy/HV6CU4FT9GdEW9oA rlTh5 6eYVxe+DHg535T7UKk7vemhaFMYlOV/QeazoIbsux0QY2XaoNJhiANQ4eQf3ndMqcCNEJT2ahc5X8IEJ nqqJ6 JZniuOFxxpW63q7rZyVBFqw5QFoRjLigltCXmx6xYb7o/te8/IhlW0F+sNmMSdvdNvI6xo9zU1ZiryUM AfgII xrwO/GWsTBjIgbiX3i58QQWULL4Z2Kd4c5rJHboWu9goZynrlqaGpsUVt4y9/woSpciY2eCt9+eui7W/ Qf6nX 4IKWUpYatsPzI+ZGIKXbzIB/Moser/X8Mu7teC2zTosWY5XFXgPQ5FzOhnWytSAW3dUT1RqICiIRfGwb1P /kKot 0hDQP4mXO36ezPPCocM5+hR1FaRKOIr2+my+x/Ay4FHyxBq93Ty0Nf4ExkMigVTxhDU28Sq+S/53HX07 qA21y W/89BQcZ478b/37nrsuK/Z1GI3Ftm0339k68O/HwhuoDbePtzky9/9BZH8bnAcgc9zR6/4dD8492cc7x 8/ddN N93+2e8Zm2oLfqi1syyD1Zt3AY9MwxDpJMJ4yfF4cH44wD0Mhl1N5NPQ/dGTaIlrv59sIizG53xzYQnt u0r8y wc1N1m3Vlzwg3lx+fLF1qs6xWZF3nU7m9+3/RbPUgsg2dG0oxoGNHO8+8R02+BnhaAb4XsbKFgX/CXTO BJEmH rU4r3oO6zIY/X9z6dbLR2R3vu+lITpquKNrl2/s5mfvrfo+w/hVmrqbaMixWmtm+5XTXY1i/+Wx0/bAZ 2dwZ/ F+x3sbx3wJ2ZY6a+UYH5fe7f+4niwHX+bNduBUc70xm58HH73hw+VoVXA5oiH1KUUl/JK6v5k926AMNq uko9f 8QCO62CCT/T2a2f6jNN1hY+7/wB5HFFlQ9yJ41R2ivaSUMzBH04/6RaX5r/ce6ybGBTKC2/2+PRZT9/z z7MNm u84+Fx32sJuyAzOC+solPizopvgg5uUJHsSep8j97Wi0b3/p6INTJ566ta/w1j1CHSTFVteiOQCNt6fi OIzXc HQY74y/t4NsmLL2A2MRnYQIFuQ3rpDVuHA1QJyb3j+NY93LQ190rf4Dji+IE8XmNNXcEY9zLJzzVtRKC htvrL e02Y0eEDe5nCTeUWE5Z7LxV/fw/Ixbw8iXedlshprkHuo53TCu0o1+RQD39xhQMMT/pYp6Ehg8rgO/WJ PuNh7 Qxz/Jhtm1XnEiXdXHCDjlF7s/Vws04W1n+lDFB4tW7uzrfwarc+N9kcURQ/wqML4zf3KH8qvy81I1Unn TXn7B 9ZL8Xnrd+N1UDIXv+kP3kfyQ9SMuZR2yu+tPE18cscpxwYtUO0/Eziv8lRYvQ4IUco8VA696hlP5ZKAm bKwnl FfA2jBN/QfxY4kjBH+dijic1y5oXltZmdv7qylAn8y8TKlwA6tXo/gVab2g1IcsnfYkw3vLXgYnoh+tn 438Et LsQ9fkw8cz/LfVjG/yzi/DJsafmbJe8jbRwIVfS8OHazrr/H7h+C/FgrbFZRGxE8xry5t6Gv8aREHjgR W+t2X 5b+D7200/5volgU/PtizoP/n8ehy4ERmJHM/RgIBUdHyUZ8nf++ndvx+Btdh14v5yr6eJLfOW80+J6eO P78s/ 9SWj7hbAdsfExjaERLrLR2+epEOko/Zai3yzb/SX8b+TnDHuuT07v9udiy7ugaVkgjn75/Ox0/jhDMU+ TWbFq pcxv92Ezae4UWBDNFVO1G7uD8OA2P5ySXWLHxxtfzdzSW48VpSZvLc/KvVlhcSv48vy9nuLPLQMH52wq cG488 xRM/1RrrbjJyM9Hw+fvclvb/KcQjeMFZUB9Jyh7F+vr0FsrAvrJemnFkUd7A83PPxt1Vu9TSv/IbtB8C vafnR pl1/urx+d7CeJBxAY72lac2/VR9ShabVJbcM7ahPqJBv9bF0hOrj3ia7903gdz38lXwa+aT6rGp9nP51 1P4kp PMAyg+w5oRbST/V3UK0aiDD43z7/u2S2k+BX/VjEdtkAnbc5DKjnxtPkvnvu+spZ9o8Wp/F+szaU27sX 0dcuH 0kGH4OIbrNOM+OP0d+KcFyLht/kl74elP+XqOpon3wSahHFhrsJ0t0B15/ynBaowlNYmxp49NoutKX86 /o0H/ dGDPZ15N8fbogHiZqaQ4gTmqxsE+/CT7ZEeK+1cAM4FOT7Jft/1E2Uhp71bO8c+EhAY9VsblU/ywaFvA HwvDD fWw/TY/VqkqW4npuXxqqlrGqHFM4jXmaw7J/BcZ/PA1R3lfHcL7cdn3KeEejQrZb8n128UM4TKgoktw0 rF6DX FiWcCL9ysSt1isT9CZ53Yf5LD/b8jvI+GAtif1tYQ+xqfnfZcXPwK+Lbw/ReUptxFPivyeqKaAqZfnhw QvbX9 KYDgTHfp2f1BWy6HP8d1R4/jtV8sAF5aQ4421lvTF7vP6Zz2rB2ML6OE4/+kUu85Wvc/ZX5jet/iE7Ok gNuOD pEGxR0kjSRammmZlksSbtwCyi/MN+C7jPv62Wwej6gv3y8hF426QMUDInG/QpP5RTAZYdMeXjQ+qy3n/ UBvbX W8D+rJ6meaSCO/MieGtd5H7jXHJUloungi/+Lasa5AUiA+wP1+/c1IgN8zF266Q+aSbHHGG5tFKmKa3s HL8Pz wWcJFkH81jtDEr/0dnIUKp8d1mTNcLkUkdfHsl+kUYknb9yB5dhKXRAhBir2YjBoKeZgLz+uH9TdGjlH Z12i8 trv+yf0wUyd72LNyz37DubVy7mOn2J15IRfQtKMw9/N12W/TVNJ+QQdyzenmW3V+n1W1Mav6aE35ADV/ dV5bf Q/EMdwSB+dnORmlG9wGD/TJKd6wfaeTm+KCcy4Ymt68RLB+QgfoKqUd8spcGRvFqBm8qLiu35PvKLEye BhA7O LzsjWg6h+Q47QChSYGUNmtYOUyI1/43DDJkeEzl6UZPXOhsq0WM61gr02Z86LlOtzNfhFrBUZfzhBzFi lIQmJ uvO0L6kwmfuN+Gj3vRl28jvdH+d2LE345O4TKNJmKjfeGz3I1Nsx6phKFCbuMuRyX6/RJmvc8kG0hhJu pc2/u CWbd042HR2Y4y3bZQWKz10Uj3riMuue6dQg/zETFrgYooWKmTcdNXGL/WUcdyB6CWfu674B7uK66XjR4 EWqrl nmta7a88+qyZ3g5+yy27tTE790L91pvco78yva4Efnb9k0jTZf+E2i+cN0ZmQJ9Drg0r/YoUZwH94qh4 f/rrp qvJbl/MJWr1202X9r6RLu3sI+Xn/vnU50GlI14og+9jV74rx+7t2/nv96h/Plzg3dDgyhzvmfNQk/Heq /T0uN gYjLbOBIE+t3pSH007U+n2uX7TA8zFOqEjbKkGsq2Tx7lLDV7rRFe9nG9pK2rxJ//ts+Y5UU1JnrMnSO SNCTU xKcdDU+PRLy+ka+2/Z0wovyKjjNIVla00QSKJ44Tf2F5HLddHEyucib8e/C5S/LezyknM+cyZll1OrrL GShkJ WllT9PKh+j5H3dj88YwsuKfpjInPUkqaFCenoZIpGyGnyQAPhjTk2a8Xy4X/FA8b59Ub1nO6CEpuli6h A/uyC ayVNM33IYx0GO5WMXf+V+XUyfmgtLfMU+YN7iAX7VhKcvPWzb/9qGpvoxKTmX+UHBCacVutn8Bmm1+Do H+SXM Kd0XG//MayNgnWZmuYlNw9FnDSgz+BnWo6r1rYMfUIbSs6/N7r758wPPSlQ3H5Ko5oWsaGXV4yo7b4Wh t+lzb 0jz2QedwuuYm1jw1hKIXyrnoToUSQQHl0Q5wQ/UZXj5+m0kePBrrh9/7MxY2Ws8vPug8D7B2sA+/rHZf FLSBX oEpwhahoYfwIW6DJMs4LKJOExrKhIyzlw+18BeWXqQ01u84mGQLTsaDIkNgHlVJSCekx8Qbz/k2wYPHD 1RB38 t2R/Kzx56buOSdxa8YT1spnofhwv/YIjZ5WoHqb/ZtR/I66b4fkCPxCkxtu/9jN1Xgu60eep6+iJcX6C d007g ofOeWLsVdcbo2a/i8R/xryW21/hv/r8ogPlVoMguJKldax/3nQ6Zeq5+q8x2wW/MF2VFl7frDS8E0WaA 3t+lz d/tGxfV62c9GUnDBJ04VjBgxe8vx0laXzNO/5r2/0rClKQNgpceAMDs27OTtkvbpwn+UH8x/eV5hOAjE H8WCM ZrykzR07Ja03DfOnN0fH7Gjl8qrtoxCw8YHjguDXk1wm3Yv5S5Nc7BboH/61GYapIVv+wRLngFCx2KUJ to57R dFXsmqD8Ve7nRf/dM+jn1C36DftptLKsZGZ8u8psLkcuU0AXgfFhqJ0eYXeRqSPCG+jc7w2gJhHCvzZ6 Lfxkp fNhm2YIw/vyARrHhQnx9olCy7gOJp0d/ClBcxkM3lCaQwT2dNk3LtzDm34/vLL8Dz0QbeZ/QfFree0ly P67fv iJn379/6ith103hHsd9/LjAm7j/ddN19p/p6s1ePO508vg0gJb6iuB4c6lEh6/2vF6546cl0x6/7rJ25 +brvn 5gdqd610nFt+/yymT5xdJdf/eIPvz/pirk65xlxl+jnabD1kU6528Xahn1lIm1+9ZCW2oq7n28oRlw90 y/Nzk /ddN17r/6QXcxr+/dNO1bj+9gNt4/3WTr7+5yZe/yxHnf0j7/7rJ+6+bvP+0ytfMpbW97gVjA8nrTuiw vv+Lm f0rBh86nFUIk90f/ddNnp+qpvN0roN15wtzUl9/nrH78EI2065+/ZubvP+8wshok0u7nY2V605luwFLo jvZ/d VEx175+F/If3rn+/5Kbpnj/Bj2VreYp1gj6rm98aCZTV8WdeqDPwjN65BjJcl1bbmOeJscGFL104OEyd aa2u5 j6FwE9V3PHfn8KPv/fF9b/kqjWSE/T3dUB2lWrexvc631PW3Y4//jo8K9OFrVLwD1Dufdq3l8Kzn6rf1 y/NxU oC34oK8k/srz5a1Hem+bvP+6yfNzk+fnJp//balhd7F6Ugt5vl6r/Nzk+kyY39BBlkH5JTd0yE+dfypG tNbxi jrY2rw7UH62Gre1Xy7r+Tim/OdK2n8AV2Sg5d+Ek3rEYnQ6Z3qV/bgRIBsO4tL0EYocEWkmB6mK31JDa ze8L/ 9ue4CUm6pv87QXwbIhd7n2DhT0rkPh24aSpQ46wTCsckT9dCe6Pe1hD3nWGSebO9x/sl1eIV0MCttKPo /q5Nv GrudsJp+HNs4zz8MAagbVD+JRLcSIe3P+5V6W1hr70mF42u73kDs/FukfjoUNS1YrA8txyKW23ynaVSq pPfOY FU3ne2PJs61HS0T6AjgBPf4WjB8aEJK8+aLUFbayJ7d433tDyy9HZoswpwq1JnDx4CqMn+u3j3WPRWhZ Ob0MW mAe8pzEWGj9+7pYZ41qgs9AkCbIFAqe98mba9X2jbvhspHuVoOdDgICdBHsMBjI6G+/kDb+VNTIIyOZ/ bRj99 wKLZdy4h0rxzp6Gk1681pLgoPvvzY1aOqyzcZ3Kqrcu82kBFqrp2HkRqIbHVKMjwsrh4JgRzz2j4pitx XcpqZ wNI8bhIyZmMwHX9VX7v4sp8wVzXrzVweD3KYOU/UFSnVmVq9HJeFBA6r25/VH+zvaAtjMK39yA+BHY3y +VY/b 1VRmJS/yqyA/DdxHho9dv9IE9lwLpeEwU6RtItOc8WfHy+OTwk9Pvlf21rUNIUNSHUKIJSNnqlwN1Z0S Hy2aF wI/+IKSma4/Wv+A/AotS2NUOVHOixuWtkM0U4945Z49jv0yFezNDxB/vGDJiXDGP5wr5UQp+Vn7g+1Gx q+l4M Ro9ooIlOcK1fkMqfBQij+/mzqwlDh9oUoHiXfeLB1/JpMkXQMSSuVvNayzsfxllzNSxO3OA3hJPIicpV xKuXZ zmBdKzcZiA7toFmEjAX2t4SGP3noCsqU6UakWTkgU21oLLRrbX/SWE14lxYs9Fqx9czqqlVltHev4xa6 NQxHV 2GsNtOznM1tEWuWte/V4WdmFQtmA+tuoscmu0OeFdeWxy4pjyH3ZUeZHqF+uuC1/9l3swgH9IXWRIjBc zRYw9 cciMpv7SH6X8zJpVtxCL0ivucuEkrlfUGWaauuy4h2ceTHsHEaJkrjh4O6dsrc+kY8+FMWqF15FDwAsH A2puJ yZe2SauM+g3xWSPWT9V7jw6yCOCpeQ+ZL41u1pSb3cqgauh2NeX6SLeeyE4uy1fy8biGIew23hxsBn/J eQXcj 87Cly5/8WbH3dN9V4MPoXH93KCp8fWYmrXHLDRoJM0X59sJ0ta2NAAVx2nAT/kDY0OAdHky+NTY5OaO6 WAFnp H0emML3hDwfqZMtJSAg/w7XiZfcetPO7rawcjCyxKkCx37CcKogN6lvt/UXnpUM61Jt24tP+[place]+rqS2q aJkfR VRlfuiteZOIJlTn/SiiIvJjFWE0ayozxu+U+hm/ypImPn7l+iRhBQKvRZWEHr0t6ZmnBsB/iTXK3S1eB 0N+Dc WF0pwhL1xyxfEW+u8y/XnP02ilvxJ7tZ6GSXt6j+1WUt4A+0vPz3/rUASkU/lSQhsE9mxBBh/omBoUaG qbjfD bZOP2V+Z3B/nZ/G8p+6uDpbdntiCcLj+D3SsD0L8HJQp9f95++hlvou2LaMFK7BdTCFCdu/FFAtXb6cX 3NzXk B/hhnC1Ql5ttNooAnnepfHbqpdd+jZacY3/j/DTrKyjHbKmP/CNbd1qERc7UYm6q2KER6lvE9/yg/nuQ 84PSo +AeG24YbkGn9WoOtSfFc/ZjWc699G/l9vEb9H0dErE6hrFPBOZGDFd0/qfhe1XckJ/N6vDwXLCliAD97 jnEfy vPahIobvypFSLi0ODxJvlkQdVpdbizAkzwPbPK/FIOGGopGyZLsRADE+HSR9dF8AJvJ0kffsDxAnNBEQ L9NSU RYnmjUIM4z7F2FG7izJk/wNhoOwEY3KvhGNtv3ZndUOeUOpaw0D8DquMdYkFqXtxriGPU4E+O30Bv4c3 eS2n8 Eu/FxHwUs7uZN/N2We5x6ONCFMxWx/KuXwsN1P7HKe28IGcfZuKdukP6O4CniWtojett9ewpDBEUCWYS YH9RO id+KzqQH2SdHVm16WaMhhmIuziuW4NyXvTETY5ZsX/fFIHT8fSlQAtKSO9wgaqyUOCpYTeFsOpUr+kg/ 0vDBG q+tgpMIGjAnyFYQkXb/S1KwL2nsZM2vCE9kBy3NYE1IrxQuPJcq/pHYPi4gP6TIklUsUuO8gyYsHeNNV LTNH5 hz4BFjPDC0JSeTKvw/QHq8G5CeAgwdTpuDQCHc2Xyou40FusZNdzDCQ6nwiM2arQfPn+QbFt+CyaSEPt NzcQ9 whitehead+LbzUpUw+lJd1d54Aicped+Kn/nnxPShjAGlP7n5066x/DRXWwu5+8+umSgYgzgqXzNK3B7sw5jNH0 yihv+ ITqXLpluieY5+mQYzMK242spMk9wiZZSpTB+CStJatqxtOPGQq4qX2LZSxLYsYUbm1+013m3RwJtzGc1 kA63G 0jnyymLnbp/YYcH1h1/sQkP2k+7baD8cQwgnErDoYelplAE7kS99g+ef3ldLTCb+xgf+fiyqjU9k/L1K K5+lC Kn+W7A2QIGuUpmaHPy3837CiVDj0WInbtBnhQoK2/mS/II3uipvWcGvd13gscjFuP76FF/MLlaEniTC+ CZ2h9 7G/kX0r0BiSh8UfxrT3N/Pd9tP3qxtbq8Qt2hcmAxzzvBcoqL47vGyS8dvy+blqb/O+Rojatx6v5csvm n5tm8 zUoCLdheKtFL8E+d2O+WMujcl8RjqBznA5ABTedhSSJwZiX/JSMA574+iZnFf8jG1/kn9T7Z18oz3tEb fAClv JNJ813hvUO/mkRFRGpXG3NsGO6IbU8CstJCr/5y2zOCPTP0m95DpgQAbU3vc/r66zZ/Sa4LIqlBU+Cs1 TplbA yh+mJefpp0hMVvdon5Yqrd02Z1wryXQMxkajXNdsYeAnWlxx10iVE2UCWIWFYa0Kgyto4YG+j/Xl+VrP 53Wcm CtOwJYKajjJ+Mzcfg4y12C1mGwp/uwefHEjag3/UHX44gIQ48KyB+Lr9c0mA9xK7Qn20OMmyz02ZbLo/ NJdAX XQ7QxIBrgct63rMh/icF61nJHPeaaRbn+ZG5rvb0qLP56qU68aeqdy0pBgecw6av/3s6Zl2p89iwHw/P U9NEl p+zaaTYtnDLsTzClZ9PP76FvFu998j+Il7gp2XW4ylVYKTN8/FoD9eeiBtspcDDP9Lbb9kjqPCmLfFf5 wzRvY 8u075qf6516g/q7uHU2A8E9s3Sm0b4/TfYBY8yRLE/Ovb+AJbgM1dGe+D8sPzm/bp/iH4JsZ//KRvB2K X+DV8 /c3M9d+eCqMIA31FZZeJ9jbdll1s+ZkF+JHT6L0sgV1KswFX3wp7CHHNgvkaay8a+CTNRrZc8g/1M7gn 6sMeJ CeH/GQAKaOKi2FAA7RXZYAyay7at8iATohyoIzppEYo8ArKpk9f25b4008uXydxEUOOq4ykSZDfpQJHI F9DzX 1/3jYY/ZcnQ2RCj+ZHALVQ8gNhfi9Zvk1+5mjA8hU2ssfp39qP73+bFuh/xYczE3EV2EhzTIfn89PohV /gSc9 vinz/KWi2ax5n/Nzk+++6yfNzk/dfN3l+tghQJ655pZ1JWWMc0Wi/iT/7feOV9BFoHQB7IZF3Fn9ipJG KcNqV ccPA74rbwnfI95tqxqf31zf19GjVMEbsQY9BTgDLeC8WRzSfgkfAoZ9/RS145LZmgYsiWedvrlf9EIcx 6Juut G/Xl9KA69s0Z12hpriK+R/PoCfV4c/MCzAc584AmmJ4R/o0iosbLM1NBAf9C4/Oz/eo4SpvoHRfwPS4i spM7y ibOV4V/BcJYa3THo7TZEg/13ICZwOOTE0B3ZCp34eEBdqigQLRX1b36YoiFzzk+Mt4cWvOE4+0vz0hHn jgn7L 96r37HTKwID+5/zlpEfg8U6SA18xIb2p64w0iUOLnX1wAz/KSGjDaB2KADMjai2TwO41+IQZSM9dzjrM 3+RCa XmF/5r+wRwwxD02AxG17Y/7GNnVgVv4WsyCFpneKHi89JtH0wDcRG1R4tvrzQXOi+N1IXRzm7AUquu1g Wc5Ps 7PNZXgNNMf+1Z7Veutf/iPcJjH0oO8pRiyjubkIWvRoObF036i9/DcmDYQt81zjwomETjdc5BalloE05 qtJ2l aPK61HO24V+MPnWr0C+t59u49pSr530aZ/vknPkbGu0XrjG+O/0S74wO+mjsCcz8/RE8I9Bym/gx+9gL Suo+b wIij4fbwo1bN/uH7nUHcuxP1wi0sph01GF/F4NTTX/rMoHdNqKJJbFiTXWWS84T5ROqw/E6iL+PrbaWl CqtWK mP9pfw20Jtil1cQA9XZOeCeAOnju89/1cGTRFoL24a35h8tfiuoJvY+2H+OqFOgLSzqnlmAAnSp5k8+i cKkH0 pG7+wRn1tBquyVosZNUQBmmbVVRyrgrid3ye0O557+jjXSvjfJkT80YbMDN6mSN64/hJs/PTb7/mpu8/ bnJ83 TK5340jtaaz0d/M8b9o6Jq4flJb23n125GF126dTUd/ouaD05obDLumLV+cv6OwA63e9+phvnT/LJVGm 7kPAk z+jyeNhlGlU45QG2izA+iXC7f9z6G42z8B4GDiGhpFv1c2M/zs/5ElBVZXNWPoCQb0g9OZSXI5Xb8mRo sVxdm iaNDFvXo5OaDiWiRgjNg+VQf8HtdUdzfl5lE4HgmeZ+hd0pN+zdGc+Jbq4Ytuz2jnUo46FgF37ED/OPq JvKbY 3+YJt1KGI3zRyTo0NUfJPeIV+V9bRsJoTEQ87DsDY5ZCfNcdJf1PS3aw6gmndtLSQtHygEol04YpX2ip DUj3d MJVlEwtxJ34/7uc/ww59fB/kQ/bpAx3KDl+nipoSX2Qmdgm4VF+6fU12ryVfo/cPmPkUYFz2/nd6DuwQ P7+wX ce7LfpPSWMBIas/Dm2emOnezfC+c6qWWl2/lN+2UTEu71KZbXTv43M8j/Hnp+uIzhZ8upoEASF/QWx3U +mB0u 7fkVmhP/7WNJsW/57XJlosz+ZqNo3Oh8tkpb6I7ldAgR/Bk4dhi3gksfdoR1r/7q2Pxs/EefCqZ0NTrM frNS3 XoaVew9tG5iOn+80S/p90l2YrETm7y5WdarzfkXrcZj4mqM/ESz07xkNZ4XqgJaXABc9gB9kiyZGfk7z 8Pz/E zxrn2Dp4yaXhEVJIknDQnmyNJvdzkGjmPDURyiYd3Avr87whotU17+wiZP3vQN9FcmNkIkpHJuBHKblW RCTHE fEL7KigCruEaz/n9ixyDzoR/rIN9N3oJcx+2nRjCsJnt+8/TYmO9N+pnyOCu4nyzc/8XBM96s+ekZn3n N91/P b7Z8/o65rL7m6zvi3Rn8ngFyj+fnJs/YYH94oTj0Zst3/3WT5+she24Ajp+rLB84aE0a6bBVw0w3cddl c5Pn5 ybPz02+/TSIqd47qsnhw5e/M3h6i1R3Xfm6vc7b/Vik6j17jzqdx+fnJs/PTT7/q4G3Tux4mm2e/usmb 39u8v bnJs/PTd5/0oS8ulbry9HL/8em0s6Mnm+eXJ71ZHi/6zVSfRF+z29ZSVoEjwkdAKZ20vVzn/BTwaRNY3 Qwvj3 pasNTBp+DwPCq4yQ01qzkodBkEY4XaSJTb3V8cAZ+o0BYi8RTi8NxMmZFHOwTsYpvDo56K3ilnHwpBDZ RMU3b qbLPkXit7yWVTGnvrB/Aj/XKI04UJBUScY1kV0kAnPmi7veQI+sR1iIa0iLx+fX/4vtZ+pBzp5AvUljt M5Mm0 e+d2j/A79VlSadblt5ui1ck/Fj+72XjcJg2C/Mbc/J9YRBqzz2wxp8SaCO1s/b/xwz6lpg6vtQ5xMO4p Pkdc9 yAf8+J9wTJHuotH1hhWdb8G0qlW/P/GhN/aFEwQTPe7YoFSOd/KcpAhDrhs1vmUqClvwOGJ8+RdT84zo wKfpp vg1ajCnf5Wh7Z38ZveEL+wnl7npP8n3guHOW1e2+zIzh9oSAFn47sf1oyr+BI2ublvkYxzG4YEHiMaNz dfw3X C0j8CiMT0M2/ZcQDHGwY3MX+Smek1gjJEvHJBdQArL6vB1yJNxRha6G46lJXU1n8yAWXKQ+HAwjOlWy/ WPEwx AsalfEFZOdKSujbXzIxgvOwZWNZ8DeKA/qqf33nkWvWFvQJrf65pA2vqkjzgTtw4A2t0LuyE5PObJ4DO 5s1gJ 3ztWEpvLupapNHLod05MooD6h98pAy9JBWWzDCLeE2lAdhPlVQlfAWDGzw/YlKzdCu/swWjwNNW+b5+z vVv2v Tvf2cztXdpz4Iqf3Hf2d/lGjbrp2bYsUxcZKN9dz5n/yvZ+cmV3ZV+u0B23prHOraqv/jjMaKwb+WMtk jthXt Zw40RwsnIzFkfGcA4+hAqVKwEDXKjrbobDvcl1vCkMxgM3jHxxYrlB4rdy76aBXXCYRjlFtYB55B5NvP LO2N8 EBaDdx7I/X4eazWNhEELgmRqTqAIV3v4YR6E+h5zy4eUqwo85P0QoB3gCYw5PbUtQrh6CaU8GvxqeC2y zDNBO p8cOq3IOrRCesgrrtLMPfO+LHkDQlmN8KGhAT0RK3dFJntQS/Zh+OmsEvc1aB4dA/w5WIYov5ir4LB85 IT+D3 iY6aHcvDF/HjOD+eqZZgeyS0/67/U6zBRfhwIs6wzjPkKlerMaufPC77VKsz/ubW/3TjYQaQz5zjQrlM ud3y8 Tu1wxBduId1B9cC9dQ8oDGInK8tb7q3sAI9T+bVzfrh/TH7clRZwl2/GrCv79qUx+WAVSyisqWAx2mqk 4vf5C P40lp+DFkd14Zjj/lMTja6PmEcjQuFwHFgfXWOKAbjmyOJTkWyGgqhobrld6bWKBYklC58XLLBo6kQuV 5j59o f+q8m+zm2UvCVOYbhG+BBLZTLAhxCk2gZMdHjCvR8Hb3qCK7QDiwleY9wWw/UCnXqwsvGM2c8l9jHDLE Nfrnf gsk+OhRF7d8cnKt2N+YEUuttWykm5f/Nv2n3e3oL4kr4I29igmkigaHPh0ugYD/xqNPDngB8+dpZxjtu f+YO6 vXwD+ZjBFXz0uHM+JOenkV+A/KfN30ZcQn/9rDzVhKBm98A2Khd+noRrrqI1pn/8jM4BIDPKGBvkqTtL Awr// WXcjxnXCeZ/I/aXZ2g2/5NZ/tdmGT+rwyE/D8q9Btgf/smKnSkakhxb30qTufJKmjc6f5/5T19cwoMsF fzwgb /PQooAc0BbJDslPjPKoM+w/H0y3Is0+ln+950hv/6g/OUad1j/JCFu8v890HZMDNhZ4lu+8/zQ8X1OBr OxSYb bvS7GAXY8xl/1TBMf+D33rzjZ3ktFITv1/LqD+MXGfxk/9N/jzH+/zTEdtvztF/HmRftkGJTZ7xDtFnh /+FZm a0QKoaRuzAeB+ePa+ByQDht94SylcIYlS4Pt2Xz9jtGiGApXR9L9aekH46ylcg4HTV71sD/gefxsTuD4 nB/t4 67bsuvBQRk16vA+2AIB94wmxeBfZY8rpzu/kArwY/iVQDxlHEaSZsE9iTEAkwH2nz4rpMbfbHyNF2Olr jftNY CXA7alBVr44ShiNQ7/h9jUJQeG+sgv81/hg6LkhG1n1vm+20J+jxWn+hzJLKbZ/OJAhv8/s92XO7o79q dVq49 PnRMtt+yBPDzywEpUGjbGkBitju7P8utL2YXcxHRzdpFWBYXekTLQQaScTOLCnZDSr1c1oeCXvrIRHXd NTuKL 4MHMtM3fPMCLz4tkf7XUadNESKre6TJNbLwnDIVaX1TIrgcaDW/5Ugu8vA0Vw/53dmaW/9+EV6tHBM8a 9evn/ ai33o+WzWg04H+6Zp+khf6ZUrC4eNEsmQBgd69zMO0Pk0aR+/uVo49+8zEkMkhgUPTy92CTbmpe1tqTo HH5P7 4p6VaZ/Sharon+pPlFS92yA3IdeoCw/rmxTb0igssDcrUNKmWOsz67mu/u5/J3690W/0np0LhzJXvihiA8cs y5+fU ezi9/zV/vUdSoFwzQileraY/Pd5p3cYocPVt/usMXfkq9uOVxgjRNKiXAq+uFLySYRjDOd8P8hcEI0u0 fg4s+ HElqm3HG25Fj8BklC7w+r5UX9mEol/pP131+IN3Rfq2Al8IRzmpqj/BbBVdxBhqstqt2Li4Njm1jbPjD vJjwZ 2ixQk65DiwvpG4WUu/Vj29ZhngpvIEheaRKQuga7bCigbS+BIV72rEtfbgo/fO8uWzuG70nCwnX3Tlm7 yYyap ahHdG/t0FF7gcjJMOgPxLK51V3FJ+1o7DJn/grUH20e8EHpwIzN0Ebwp7cSCv5Oz8btbNY8ha5fuk/t/ 3viS9 MrEgIBp3lZv99Y/ieMqsfhKYvuxpaPnNzXFv/khlGci82j9Vwbzvvy1h86ENE4mvxN//TK/sbnPEc/V2 e9lk7 yxBCaW0gyx9Bc6E69xZu71khbiH2bi+ZHayKm2+nxxW0v1bgGaa0F7iq/GEw/kYSsgvF7K/VPw/p2fh0 z+C7x kX+szt13vNH36Y2eRUz+3QVedX+WcVPv/1OcJ3+Tvs4z1/oxME38t31SU9x19dc6QtPP/a4q7pe9B6+s RPbt9 LrM2Aq7gedP1cJF3AdawVurB2xpe8NVfkuoJb0++JpH1Zqknerf9ws0+ql/O2c+JYy4fu9AvXB0fAR3c a5or/ TQw9O/vgA43Pur+s5a32u7/W4mD5JFjru79k1X7fP9o39Q/tSdLDMf3g5rgq+oyu9P/5sxxJO21rvU01 RZOuL P4pS+bRm9+2X6FN6mxQjZcHr+Y8++3bMh12g/kYqvT39+ZM/Fb8mcT8eCve41WUMG5w4/7tqpqbnZ0kb k1TKP Py5bs03nClAihrVy7/WHDEPZow03w+C8/54Jer0fWLYxH+uaTGkh3IEZu8MplKSIrB9qa48cXsdyy3Ad iwUiR /PMJybyeORzDfHy7AF8jcIdiyiOridl8EzAxUn9ojv18sRWnI/5eCmkatIJKK5eh4PNr8F/S3jfH/bLW lMJEn Mh23V50KXeeBVmyGnfxtkwT4Og5/mriMBAMYVOKUsp6WR+VJ3kqs7F/6gvbOvv7JyeQ3ouo/qcMM90h3 UkYzi uj8s5tZneeh9+wwKb8wu7p6TzzFjCyU+uO4bPlRZszb+zyjadSa3RE6h0IHVEOkaB8UW7vhyih+q5EA3 c/lIf ZvSg3hwESH+hG0ACH1bGGKygxZgzHcWSf8QSpWtZ5mn+wcDYOThxKrEzWPbbevpv2tVo1hk2Xpp30oUI SWf+S 43J0v1RZTg1oSmaFSe8ow5x2z3nQGM788e4mu5pBY/XtZS50BzbGCau9anYZeyqwhqqGcALNtvjxQ/6v bda3e AcK4/u4eWeX/FyFwDynO6P/cbYP36Dnr9FiWoxx/9kI6+M12gbbX+VA4xJSkAAaAMmV4mpsNE/qz/6Xw hwV8p mXUuMH/VpG1S9Oq99H0TuAe+5576O/L+rHuZ+ctX/upLr+UW5v9dVQg+C+YdMM1Lb7+7tax6N2lez2io t5jX/ Qvdsb/8wInv/Jde6/mjnD/+4Q1cpf9d1Kx4mOOGNi/+VH+Pl1d088WrjeOV8g0WMa+Nhi3i0AAKATW88 kz96f Y7dn4YiNql2yN+qpK7gjDY38u+MCfaDPvgENjoZnAl4snjfdMdX9qO/SGHn8caiDk/VejFls/tQTIM/l ztrxH 8zY/9NWt/7qS/CY77IK4fjXpMdR5JEXdW/3klmJ3a6k1G9w2+fK4Yo6r8a+yB5XV+FLD6c/9BYqMY/tz /LcHf N3+l/TDrV3fAMhJ+9B+1zZ/f4XH6/tAtXg1oWmlukoB6TuI0Be1uIeWO/uZWztoIU+wBLt21z+BPkhB/ vuOar 7/yh7M3I4BUz2IbO75pGfryveNH9d8B2s1oHFuAbe+n4q8/RP4ar7fuB0ztb2TDevYhByeF/A2CP2/LD 9DM57 LWZTFlb2YKLv/vt4kitJrwf/y0YI1oH+bTTLw/G+thzO90+s0t/nsR73R8alw3FWscjiqAWS3gFcPNiR 6d6X+ Caj9KHhLKEw6kS25/ld2QO32r3KY43hc53VY10yXK77r+U7o2Lpefdnuxin2fU7ZZm2Qb+Ot4f/nRur/ yWf6K VNP4fOHy+Z0s/fWDvzAkYZX/gbMhn4og0xz8TwxaobR1D1NObo4/tUHjs3KElhu1bjOyVZUGYHH9Ok6n 4k8v5 FIb1+lTSNtc46/Wagp/0dv0HDYzTyiHlh6oaig2oO/FCX/6EXl9/SAdkj4G9qrwmgvsp+lgwohUj9k44 8/jXZ fP9WCngJ4qyd2F6j51h/V3pde/XIEqga1vB9HgIrpbMgU9Qs72/iz9fDHTh3L5nRPsvTok4a7chrcylN OWpGc DZFRr+XEb5p/cxkMPKgbaIwmA2KNOcWB9+2nflqG+Z3JB+5X1v3d/lGdNzVh1BI845OaacFdO7pNwuzu 8qxlG HITxCEXccpGPIV//xxx6Su5n9PkgeR0Q/v3s6m055ui14lRunucAkeLktvMumio/MX/OD0V23SGKO47N ZKtZv kbGE9s5ozaFuiKdf4ms6lv7J7L/lTbKQxaluMdhGpcdKfKyyOyp/fI2p3T7b0WVRnC4PJhem4p4UJc7k /bETm B98wQ7YuXfxxMbH1CROZMBgSl1x+1XoRwI/ro+sWleD6YnQxwvx1EAxfIVxumPlI5QV+TE0Zxp0tgbt0 lzWv6 YKdnF7baqhf6P3Oi+SvHYz4g3fVaJ8kx4Oywvl4ZQ9bpp1/rT1RN3iEn+jEtzO/2l9vtpxmCF+SvvTMK tuWX+ HP1h/UthPqDwnel35IYBfxzQ4AmNevwQim8vq8Rwseuwwv01z5+f/fI4ZS4IcEHcdbof8t4VH7kWsgNv lPzEv veFczj93T2qI/Di/AKSIsu6Yj862dYJ5bhC2JIJpjzQO01CVzr/Pju7+WhNaq+KQm/uzflppuW5ToZuw r/eGy e9mC90n6m4029qktLofWwvb3jfmpe+l530l1/mF6aUt7I6ed7jxJEIWj2AOkt3ykiN7F7c/n23X8mxcU mmTp3 BKPufc+/stL+/8VePt//jZU/p3qjcm9O/5tsSaPQkuNk8sqozlP11pmKb2uk9Hk/g9nEwnm8ktiep9zn e3H79 d/18uTZgwf+yYXDlvYhogYI2xYP+p+SQ7aIZ4Tx5VmQ9eCH+lzBD7/KFk9uv//c2dD05kbE+jLKu0eOI d9Sfl iDExTiXeo8pMg8p9t2gCoaHc5q4g+CoNy3kS3pPfe3VqvsgIgA59qaY9rgulgcasl7rW/vLZjLJln/U/ iQbWp j9zE34ebf8qQRxEdnxPe2QdZ/3vwyz/EeR+D5r5q/hC4P3/IwJ2SZVDsbZ3obfl3eYWYI+86ub8vIwge vei8W WEFj24/isx4Zng/CZv7Q+MvOfgmz0VGm//UTZ9DsGvKZ+ljat4lYECz/2b3oNQHEoHQghR77rhW13BNh 9xT3f +X7oPo2UiiAjGR6eTPps/XV4vYuQtrXN9Gj9ibXw33Ss0Dq+mWrKu5pz3Y+ezWXarR+1zY7fFq9R24AT 74g/5 6segzLbqtKBy/q+K4AQN1mB4A/3YXixCvIkbn0ydx/8+c41Di4r74xrt846jn71V1b1Kkbj0Y1fyBr2T 6YT62 S/yM713qer6TyVfgEpdi8+aNE8cucj5WFhjqpfD/hxDt7mq02vjXZV/lPxP5JGVuoezH+YN6U313Qz4U H+Va+ kARLGLph5qjVOE5tqOyhS/LEjATW8gyBgTzqMkDAVHVdm+pWgG5UwwdC6N06j7N6SW/35+GC5fNgP6ru mbM5C Ll/qzA28y7j6Fol9mHqziYwnq7pVwKl+Un/AkSiH3WJAxbo7qS07oLF1IAwM2iMBVy+Ga/746g9o4gMc 9SXcO JeKv+xuHj0xpZ5+UwnkM8sY60LhXwfdnMHpAZn/EB2HX2JzUi+/Fn/lstXgtL/F1dgD51Tdb3vL3U5gA 8Hfbb lBd4E/6hCMXoUxe5c+k3Ijq/1fbhpvhsrfvU4O/IXdhfSbrfnLDsS6/0gZj3F1HnYa+sLv0WnpoK57qi xKv5l Az2xYrXTaekBynv51/L8Kjp7ZlhQFM1/2JPkfHk9zL/WpEQyp6xoOfe+ffistcNNV+jV/7fZFbl0/VnI 6/abL 2TvV3/Kf1cH8mcARw0NmFNk8q/w4ffMCaV6dmZwCvVOxfWfsoj+v+rDDi8XBo3ynpT4j0Yu1FLujnB8k pt719 PrI3bxbjCYmNe2QX503d/vtw8etoVuiC1eUiqFuMPp/Wp7T4Py3vRHboAh+fCr+6h5npc/wes3T+d9y3 y7018 +qJc9WYkv9V04FCj6Q72XUSVPhJ/7vuybbwfIO9n3j8u4UrudkEkcw8aN/7FoTMY2D3fbg21aes9/zt2 oPc8v iUut7SRlyCbbd3kUwIhcG18+lW4FwdmGjcEy8moe/3/Z1p4r48ipKy9Vtx1K6XFi/y/kQ9W1m87/zU/F npcuh wcHvEj8fkk0/vp scientific affairs/GhFyT9KXsxh401CNPs+8IvHwubH+x+CYj6wsv3UNGO21Nj/lp1KVbAuVv268w7p+C cs2fr /+t+km8VawlqWj5afDg0laW8x5Qf9Jg/hwFuo41a/LFsbvg24/XIdZvf3Lg8T/7lcvsp+2icfMCnHQ2B tQK9W z8i0m8WDi8uve+lpqQ0h7DyqYBatFK/NoKNjjChgOna+l3tXij+StzVx/Csbrpcy7xdqIO21jkMc7Z9u Aczcv PftplTZdtS/gk5ztkrzIYXQyghXmjbptmmLkfB0+V5fVTKesNhGn+ghyd1bel/Eu9nD2JY/2sKXv/k+z s1j2i k39e/rEriFjCKh6K8afpuI4U3m378TXS/d6U3YoL/vF/EWa71+vuarMZ+bzbOr69Kpbttv0qmPUjyY/5 0uoOf zBWNkc1bMiSeUWy/hlHmd/ALVfELBI/9X/oo99q+jUym/AZNr3h640bSsenRY/qTy52aw3YdPd9SkjVu iTtrY YM/EpXGf2i+asUyA5xovtqxe9x8Mmi4Xe8i7voCk5re9rx9MwIvQY8o/Q/MX+4KFXvgoXYcK6S6R6cPm C9T/r wpl4Jy8kDSx4Dxw3ksVSEUYs82rWfG6glYl5UfG/FL4o1Ul+dk2WzVsW9TA6oat1yXsPtd/gFXp8BCji W3/31 k2ecLLEfaoO7BqcSQW+T44+hcowH74Ra3DukvfiGshth678C2i/5pXHZ/r0rbP4e/QKYS9t2yyRppAS+ +qte0 HeAy/z0wg4X18Wv3L+5hcNo5DT+SEj4cIIVb6xDWgslXclnbwrzLD1bodoXiHg1o2rykB/Iitu/5sI67 P+Mwf 52WQBOarKLUD4BBM3BvD+MS/t7enL/033lL+g3m7l5F3Vrdjesw5qycVYwwpkDaIKyGjfcn7tz4imVev 40nvH 8RiXgv8takAFWeSO44NA9b6GpK3nBD1g+XKb/9P7z+u9//qtZWbyu0eg+1wh9VOyKV7w/hbz2QMhFDe5 JnJjn 6lzfwq1BnWKs48da+FbRaujC+sfY4/IbOhokpFF6xogjoLRaB5ncIu2Py/mknC6b/ndsFo2sqtkKL1n2 m2aEv jt2NfKw4+3P1V/xigIw6xX3l07x0RJ7/hPMH5x+qxP+zFO1+vYW0ku6dX4KjF+5yF+ZuZ2Evqf/tNmu/ BxWYa 8soMsyfr6tgJbdEWHG2m8wp/9G/qPP+m2J73sFyg52P3vqQpnAxo55gb+WlQ15rj/njDF41wZlx/tzvr dC4W0 ujmp63LD/Nhkb71Zl0QiUgOpYM6z6AaGexD0FvRWbBJpknLz3lk5pnlPs2pUXispTNm7K/Ki/NE79rk6 41G58 AtowJ9afl+x8xUfjx3Py0G/E7rfAvUlUV+0043lz0Zggc/12bmPZ7FMTOXynD7aE6ybRWHq3Lub5Jhqg P4O/9 6crH8BgKgD7dAExbmVTycy1ZlAdV4LD9TIr0y6klR1Ww/H3lBfvDkG+rJKm+Uvb1X2/TXNQ+EEethpBY yCJ3R wI+S7ajR7Vb/W9Riuv49tOyfka3/QguwbY80rH+sHzE5y8rgux3+aE6Nds70YDiB4kvdV5KCfv1towRi W6LTu qy2RyZkS4ug0kU+0Dt4pm82XQ1zMchiJUGf9y67Fd7ihXMnCSyh5fVfEyNBggqo/gy6DxQfjZ+vqhdVe DTts1 +mHYh/ujhI9Fx3fYkRYOuQSNa9/Frjq1g43Gqfpz09oDegkcUAJqxjz8gYziBqabqtlnNmO6hmzQNc1e OpPWk r8jbG5hScDj3+wY83XsqnaAVTHkm2Akx/XuF2ZQ25b30OqyOcFQySc+11mV9/LNbFKdNbzxJXO+Pzvpx bL8Pf LjP+vVZ1Te4ipHJsIDglK52Q1l9lyfKpSOZqI67gyf9P29xivJCPa0CVzWpbdsVr3n0RngbVO2ZxSBsX 5y1ks uFPMDCXvz2+FemXz3G7Y5gR/fmr/M+IWuSgGxgEm4xK2gsCrihtDWqkBFocz/v4WFDqi38n1q8E1USR+ z8LS/ 45tv1q/5wWIerC3QMOwOs7mH/JUv9q7+c3FB/23HQhbF7bO5I3/K7m4d1oqW5sJrNRpSFcZ9r7jlqndT a+Ntr LeoJXSxRQWW/nSfPhP1/hxH1oOmmJnJPk5bKJd4BDlE37tu3coR/+fNc7E/G7zfuyNkauE95Xv2wM0FC P4O/b IqRqT+/BTFQ+9vz/eTPnMeb3dfloLjaBvk8eH1zQluty+Xkb9zTpEflfmE9H67f4oqgVFs1bd/sT5/ja qeDNu u38rX/hiJYSO0hz/z/jb0z46+yF05TEmS1fdg+g4N5m9+wt+u56xbS8QrF7e/1i9w6c/Is4MCr0Dg2Un AF8Xf Yg9iT9vDRiSBp11MStledplY+7G/bHgi/oY28G/Bm59UxsuzUaJ0Ph4jIbn5E/r7XQjCh8gKfRhdk8y8 G3rIu 5P+Ec8UHbyutH0lU4E+F/f8DOvF6+/3bKdP+nvVYzq5Jx232gs102ob/E98+j26/lQITop04usZOLe/e RhzEF WaQDr8Eo1Kafk49M78bWOZrj3NN/5+R5ALcWaqEyjay4XG6MB9fjH//i11+RGuf/0IhmxeZTffC/ri9F uu1V+ O/Rl+8PSgixTd66S1s2Bmr47G+oNhyirLKH88yy4p7APjtdNNJKdahENgp2n8wFf01cx13YIVqg7soTw Dv2ku bT2Q0VVljRs64XvXV72+na//OQs4Kz+1eqIxBBtQwXRIO3wI6RKKjpixyzQ3sG+adl8D3k7RKW++Va8e zS7mr /LVP9t5Ti3853tHU/h4c1mmC3N1W4dlp8N5imgCzmeCCf2Ln7PChUC3Neh1EalYrYfKYL99aB/bsBUC7 L36vE pbVk0rKmr4KuzUbzzjK7gLKo3Dolcd1La5OrVwfvPfYpGRYLso7Wdrtd2tPtWh00p0sNCLPN05cjEa52 jmcpz f/pL0Nl+R8ev32kJcb1fdOc1+W/gL+qlanu715I7G3voskDdfGsqOBNiDd0Ab6N3d2/e9x5L2P0mAfJn bwP1E U16zK/4VM5Yc8mO8xGvFo2XlTqpg/MPmkaLI0cR6doY2/imzufMtSmepI9U5mAKG3zeuHP4MMrY8h/0l 6dmAl pHVNYr3/GpOPfXnb/QFZ4h7z5JVO8jPl2fN0r+x/vixjppStUhwXdQmY23d1sQ6ynQq3jMtUtkXbWWlZ 4zX1M 7NT9pD5W2rAnnvEWIxu473l82itw9lAjjV1k00qbks7y9Kp7DE/QJzTvTn50IGypBCvcdZKnu98A8aZz u/Q8S 8dS8tzXtP2j4n+vzwTwCjr5Ukej761pbLFbWH76+vs/+Du0pqmxKvrx1W1Hn0f0dz58DK1Red7s6E8/l 7MSMU faf3B7U9/xgFhiYW8Oy1uop8NoAf60gm50fuOqYgO4e6U/7cC/J0PbaCAIw8/TGohgDef56+/iI+IFR8 bhT2P 6VeNtq3b1K/DPrDoD+Mi/019tD1yTQRzkfHAlcof9I4vhFb/0Kpkfi60zmop2qpJlu3D0uX1KgaQ234o D9rPH 62v/BSY9rxFETnUz5vpuXXUDjcL+k7f2r0B/ync5m3bQC+eklZt37TqHxI8/m0Vgc4JDJ4fW/nj41ImB kdqmU 2C8vsu0qqiWSBEIjwv3yN4ewLb199v9y53alA+tQOtF4jn/60dX/SoaCkspwCP6pl/Vm7+7P4EmB1nsr 2n7kv 42J/tSzvb+sAC0rtZocEqIloq35r/W1T6a9wExq3fdmT/bj5Oz/+SduCTbM1HrIPp2sijw91RmBAkWqo 3Gt07 qlGnpmUg2K/sS5F16RzakvB7fuX567IlH6jDDwi3roKs8D5R5w5vZb/Hdn80ikBSimK/7rj42o95x1yg r9BKq 2WLUvj3qv6M5xkldF5QkczIpk0QOaQnk2AwbpTzIeY09swB6Na7K6ZM6KtadoPS800s4xFXb+g7g5n1k P53dT giZng71E09Mnhv5/1j0HFRlMa0WC0xY5o1cpd9QhKczCEwWy/CvTw4Q3+6wgyz1AcDyC78WUj/kJsHfv uvV3F fynwFgwwp542ev7Rl2+krVAYoabHBvoJGKI7Ywv/69B/Z2KalqIyH88Kl9Q9K1NxEgsOLtnVH0zE06qh Vv7Bo NjIkIV1ydh05C+Wr0kNqkhmxOo+ksvYs4ik6R/pg5Jeh7vvg0yeWUyXS7m2c1+bh+US+n6nezOkD7Im1 FJvE8 /bDZoiEO0K27DeUf/97mrJ845lFH91zOe+31SuXm57hTdx0xRa+W9wti8XVvntUy/vkPN2piaGhcho7/ 7463S v3LeTMuM3UaUJeS35ryImYXY/kQn4BC0f1YujoKab3+oOXDT3PhQgK99C2OYSHbpoakR+1qMwq4n19JF RerLZ W7y/Weg/wE8nrOzF7LBcqpVgBE7gtIYuw+YCf+8NxjYgMwgsSVgW7xw6OgwK77qMic+slb+Lg0GvsuV9 cLU/3 25yd2MOvQ8BvZMFG2+t3/bFv9MW9iDxq39+ZOkvuwP+vqakSeFXk537C/aX/ae0c8cinX/c8Q8Bp3P/b X1Qen 4oDUQlB56Q/jDz0lp5xeMIMfy6zZW+QJ0YMfS1RWo03CkV88KllYaJtrj//zvs91kbaR/WI9v8gTxxHI xZT7W Bq7Fv2m7+6/8cx+5X9ie6v0z9v2r/B/XIVOuQ+Yv/AzbYGcDyrK5I/rAdegTbKixV2/y68LOIpopQpe/ Ef7r3 Nnr289WyXkuBupM7+tf9VZE/s98lSEFDRqvwMNjDVm4LTMZkitlt8dYQZRb+pQAjiRLCJPOh9FDA4G7l my1CH 5pBE4Ku/qzLfuj/XNX+xe2yA82q+/9oxuLFqyGtM3jk845No/O3LO5JZTelL6Y4gIzSm7g70GqCrsf50 PwVyw YSnxuQJBl8p/zpNif8+fibil/PyF1Zw6Kb0IY/a/FXr6eg/rL2M+LP++tZ/nicErcSl4bpMchm8nNDgj v4QTL qb+ZoGnh133RjA3bVY+oOjw5p2g0w81Ds5cf8Q+EYU27VZS+IP+cs8r43pC+bV29SjbEvpQbeapF/ysT Hn38y UBrden8R0j4P9aFyd59B5HbT/5w85U+mq22dxwb1+9PsfnGy/mKnngV/hjjF9FyH+ZpCEmMHl8O/tsNB tRzFc MKfDXCo/am1o1D+YwjKPGUl4va0kiJ4lN2GWT5Ev+f06b8gX8mbz0bRFlTGcxKLM8aNo341k1r4x1D4I DU9PP IFa51+/zgvQ/q1MQ+R2m1o55aX2FnDb4/qvtfba6oo/NXrNn/9ZmMzqmN/U/NPxMLkdepynpZuV3aT2L 9/tVb F+zDn7Acq0aMiSuVEnU+7flTF22T+V9j2y/rzrhMtf/BT1Jfqf/apw9K3gDxtys+dKD+PaEWdyvMaC8m r6dKW dhxDdhc63+xFQLm0yVynrs7m59899vqbxM+0XnX3fygm+eEdS91m2u6RmmA8CdvwiKieLtXsIjxooHdR 96eb+ aJNh6E1P23odKYPwmkCaaaIOjK7fPV0ZDsudC24/4PG5ync1TUS6rTvfQr5F03CvCLdXaNvH9dGeLx4E o4LWw GxhxF2HC3A7g/53UkqXltt4rO1+4T5ySKaoJdyr+wkfdWHu8LrdvKHaj7483zEcpH4IpP20K4b1+13Zb Al3ZY kfvxCoy/x0yCWHnZxxVoxq5/UvqjBza/CcL6/kPU7of9gy5e30HcANWcpHr5mEjdltSLGAdbcjKXHYhi WfWuu F5dJy2/pzjmZtJ3c7uos2Wt1B6NlCZejDc1J5cimzr7QQvphMTgAtisFuPEfejz1SChkZLxBcLtXdgr3 eiyt9 /ChRi0cmM5dx9uXOo2ykjZf7oOyeXGvXnvh11q9Sz2uIA4WkS8lOsZ17sswvVG8ol4jd27xT9J5vcy15 2+mMV 1g6gx3futY/dqxD+75WtH+Z39GwgxbZu7TtWec2HhKomJ4l/HS/VXDMwIbjX5bGym/lSFIL0a/YIf78k Mv6Dh eNC/WE6txHaTyRpE0xJjC9qu3dmx1pjQ/GPSHwfUDMBh/FXx7f7sVoU55Sav6DGQ8ke4Ef/8//vfeiSf 3nt3p /zZxaX/HbR3/1tvpeWW50zbKR7sdAL2qwqmGifjtupv9708sw0lw/9vqRT16Q6KElX3qbwsADlXCL/vr P+MlP 3j25rEBc+0+9Ci87Si9lHX4KphDex6Oa2wuHA7822y516355Scz2IbekfxIz/d1qFVSSwNU+lj3cDpD5 IL+B/ W/gvGm2TZoc3j/n2k27OSio4yGk+BfPkODf/4YP6591FI5d0qk8/z6S1r/u+8fGu0GgHox1n5K+TubZ0 36cpa /p4uZW+eltuFYjj89x1sNA9rjwA2e98Cx+Ds2w15ge4/c0zl1rFNc2nbJex//8YH9cK+i+rPdaiOVXld C99DU +/xvfm1pg4girs2++g7MxZ9O6c0MD27p/9DuXhw+TvSst961ozalqvKBiUa/X5ByJ7MAC0fAQ5to2Yz+ XPlML r+R1+3UxX9q+z+8KuX2R1L8w8rzmqj/fdR1s92uXicaZsdBuU/kjVhR0t3pnyPc6UFgH2l5xQ13ICg41 OK9JH TrrqJfQEeYtRj29M8T+bZ10++l1QdDZ/4T8wqvgmDuQhv/lpSPfaf/0EqAiz9tE1Tx3+Tag1+VPFBc4z KM0Hp +ndy/5LkEN1G43Pw/Xp8xeMF42TTbEc6Vc+bAPfCeWppB+g73+YaTMgXPiUoKtb9MaeTF+zZBmxZRdmD qrzGx f9C9RPg6Bsil2W+yfnhgN/9v62tDzWwI4y+Ljpyf/Q39jRjQ20W2y0VDG18paKS91rP7hLQ0+MTQ/97l fetnn /PeoZuer49YjYlx2345RaT2os+6cGV27zka+UKEpLACxo5J6oW4nAG/NLNtlpPfVyt/me/Eln8rAc90F bL+9/ QZ5pRYtztcu0zSB1ZRv++fH/fmQ84tQ6IKvXQ++XN+mrUqh819Zj39x2jJG4/BDWVvX8TdvJ0dPqjA41 Tejeda/W qog23fL8rc/DY/Pn+14yhtrnzqb16PapdYvi7ElNt9a/35hg7Zy0ja9ung2H/9Di6bsb/Jkt/Qiy1wuv 2s7nM lvFX+1qIZJYtsS6+bMl9igfjVdhRJszTr7xi2wocRSU6xj73SKGe0YlF/O49Vr8zc8AkhN4Mpf5/UE9+ v/TXS 4I/LMePz0EBEN5k7fyyhQIgNKPUo6+M1Dwdf4xmi8ggYJm/doyj+P14q0eE1+bmU2xYZbenlqbBYE7WX PvTE9 /Ip6uO+Ov+pO4/YfAJal8h8L+eD4Qy0requ5rr/XWP/dlE66/bXVhf/pq/9H9ALgq+739xvsz/3Ec7K3 +b+oy xRob87l/49I8y9I+faLAWb/4BRbk7isixbmH95vR1WhAQv47Or5mzei/3tL+QfJ1dw1osbrCep9FUkGX 3/O9g 0g5Ojfm41+3Crjgujj/b+i07g1O9qAiaV42l6imFwdmtQbstTmhsF+L7us/QB8nGOQ/3/cINvlye+u/K +6snk Qn+xtBkziy6HT7j3MCH/hrH/oKP2t/uU/5KP1N+XBgHsteeKuxhAklIvI2jRowFS7Rv92G2Wee784xj4 s7Wn/ 5QBb7PN/3X/qLSADEpsQNqzdiT24cbR5lvmq8Oh+k7td9shrvu7W0w3hxuzfFDevm/4d+94gzKr95F/l 31l9d W8rm5p7k+fNfQjo+PT9X+jqpk6W/u68/JC3u4X9vJa7W/R0o3RAuKF0X//GT9+l986b0Nyc97MaWmth9 NbL96 XhNqlHB0mzORYdR2oqI297C9y989OtTbaYk9GVJ1ORszk4Ya72xK0StApJe666+8dBmJn9CpodYk03QQ JQtrn K9q84Ia3EyKxpXk0FrohWkw2i//NDdVD1J/5QemRU65E1oYbVQlgJmMaot4p6J+ASttevY5z6GjKAhB6 Zria8 7haWgzo5xnwIK53yRopgAnW/EFT+jp88zDvcriMPje36bNdfpJHdF3z1xm3IXieXRIG5yq4gXo+7vifH +9xKb IsAfpofyq/Tf5afX2eECBfvNL0bKhd5p3qJ/DzoVxDeG+1bQKcqbaMHvClr2hcvr9IGjwe4yhopJNeLp 9pDQq ip1G3H9w6gn/BQ6uPfIIa1d1W4Iykab5H7F5Y5DTs25mrVshmM8JTvp5NNMmJS7WMozH0zYuasL3bX2i t3qWr ++vkDt5AQ3u692BnaNr/Kz7sbuplIflEf/U2ZiljniSzZfo++l/3ukQui85m8Rz1aL8m4+DGF/ Z8xGH 3M1EaKxxc4s0D/EGFIZK8S9JwZlrl2d6D/ZBg7d5pqUYCctsHiM7FrUKD9y4Jof6Hg/A80gbze3GQc6x vqaWB 0k2JCJp1/FWwqq2oaFm+F7i95AKeq6+PqzVi+llR/hv6OOX/7Tthb3PeyIVlx+v0X6w3s4HL4YYh79K2 u9ZPT 95EdfDJuRMGWqPNPkGxwY64bA90nduXEYnd5i9J/H+kL2k9KTsl//dWnmoR4LC2Nvd7EtbQAEOz/x1zg rzJ/Q 3uwEOc+J+LUTd5CF+/obj/np9/v4kGgaJm8f0xTgh8xW+3obj+H2jzfofFIrzjB3bfxqHQ/kl1tr9UwT dB6P6 CcRv4sMriU/mTb/O2z/baVOvwu9RPdB6betP4aH6OvqrNm3n/63t/RtwCw114Tfl6M67A178QksHj/2f zIan7 zKj+zs2TP27rJSfe6u9fJ6ubxZ7u4bH2VLYIq+5stzfTcy8x54IO5+tzxtAq2dv9u7IDN3t4Nqcc1E8W +VL6Z zg5swqLAAoBQcgi1TNPC1cPG0/rNTkzrKs2tqd/mNrNDz8/fY1dy98NRM2XZ32/LBy/lVO2tJ6Zdvw1l xqHcS egP43L+FR35Xcmfs+Qo5XZYV71Xz3vPdC//fHvL1sc5Ql59EDfnerj/Bf09A/bfwKA/IPzFfE3M+sOgP wz6w6 A/FChSlO1B+wHeRel3g0X/EGcPvJ6K+xIyEzz4j4O/BRvTfP3Q+tXuYsw6t0P/YJhCcQ4A+fTyInz4s1 A/DPr DoD8M+qZtQinOD30E+TXtIxb4e4V+s1P5n0X/DKZfDPrDYPrFOM/fgUjx/gK7UXY3c2msOPz32VsBhPc fb3Br nbpFU5KG/zqsjH5r6ySRQ5XBZqVmtY0uQHqbdSzPKA8OnGwt6+h2wJUOmHBKMq9cB6P6yFSm5H6q6oLW 95LyQ RSJ+fPhtdcXv/yx+hxyrOntMnVBmarp1zr/3NOaut7Exzo/mApr2YsHzm8xOplw7220Dx3T/N0YjZoDQ uX/Kp J4WOpNe8Tfm5KDdg0irLz5sEYa4l8gBU9P3vBIvUNfjRpYEy0BGwvN6E9Q7JW0b4v7oGmKNrvOfeH9im Qu6SF 88LeAM/hlA0zTBfB/OO+4qLEiBLBfMmt7vc2s5cX8lfr5mlUSOenra7b0yqVA/ufuc4a/rVP+bBaYKnd Lf7+V ioopL4vw64zacnqrmXghqhMF0al791As8s+sQXsboy1DIz5+l0+Tpn0GP3C34yvbkasJfviJ8ZnH5fg1 fPx96 vs+/vYtyGwCpyrb1/rznX432udC7k/rkSX0nO/n+vbSRbFj7Yws802G2LclugdawEDOxe7p/hc248Ue6 /lgIO oXmqWYJ1XAlgSF67I/oy2gqfSu790d/d4CHD10U1gor0bMg1Dza0Zat3p6T3bl36EUNHhDcE3XqiRWkf wi0/i ccF483u/EC3I64YZYDFnmTTGW+QmZxj2dL4qx1clR/trSeB5/Msh0S8M7U83J3bf2JCB6qNG6YiAXFz3 af7n3 52YPzV+USCurl/TR56/hxw4mbYVEa+Oc5e++95fmnTL/L36UqgC+J5Z+RzBn1zhYont793d5F8KKiDVh OfK/j lmm0C6oOgx6tiWn1Mol07VEOMI98wEDZn/lyUTSTNqJlR+RLkCvbA7IjFs39k8dtJv1beLwyhojbcPdF t1UQv h6i0CH6YBlELODjxX4/gMugLyyifLVgwMybf3c12LtVcttNpVyR0n5A8VgP5wCL8CB5fSzzC1/Jnpp8h wfm70 a1ecz0+0y40pIOr4/65h8JV4G66/1hJiCtPTyCR8Qg01vnNthM/M/rwBnxV+Gxdz83xjzcpb8hmuq8mO w7JET 9adhNzB/mbveCR1VvxhvwnnvMpF9f1BPPsGBUZOWPjrVQZa2MaufNxlGm7z3s/j9IBuabc3E+3kFeJa/ Kqu0/ LjwCO02vLx0/HKxPa8Xg6YTs+rAiykQdcbLYu2S8b9uH+bYSHR0GZq7kpM30m+ZMgTla886utEs/PZp+ ZF4dC 5qXjP3kDhU1zJ067xf3ksUVECB77pmeqz1x3/RGsZA9T76TRMYo2nFjsoE8c8YYe6/uH1o6bYGOptYuP 9pdeb K1x/+1gp+2OgAKt5xzNx0u33mv8se5lIvEACUlojgO8DPs349tOo//kBU18iBk72+zr7/51BMgaepz4t Fbnz1 67dXBfY/wGD/WtdAOzr6EoKuHs1l6K1Yk71A+sNg+sVg/GEw/jDoD4P+MOgPg/4w6A+D9RcM+sNg+sWg Pwz6w 2D+h0F/GPSHwfwPg/4w6A+D/jDoD4P+MFh/wTQ4TmCiWc3u4X4Rtl5N+sNg+sVg/GEw/jDoD4P+MOgPg /4w6A +D/jDoD4P+MOgPg/4w6A+D/lVU0wd3PahvZc0uhOrrRAvF2COGarUJ2vWrwPGCEtSrDp2rT2T/jGT02u gDo2y 05xo/kiuSIyazOrh97GurjiNLVWc/nOlBcg4P0DTztby7N0Cjo0NUXrfuSjwd6r3KEYZMvt1iy5DNDj+ Epb/i hSrG3BPHXjC3q4mG4gosjz4BHcwC2yO6PbAjU2DUyGf3/S1Z+JaRRRQt5GyARdXj8zHlmIrQ/uKFtGQm lXpsz Jgv0ZgqN0wMa1zRm9Oy/kourNXqHQpQOmVeBjBSRPlkMZPVPHjlk3Y1AT85yY9G5/0KPQWuv8Omtra3x 2+pv2 +mZWr+zn9hrc7Pz9O/b24q6jOjEQze76p1/H3Z/Fn8vWv+qsLfRKAjURbp7j1QIpUEapAGdMd85N+Cv7 81yvU m6fzx5ea3Q/f+hV8ha5umBGM3/riyki7G5WJ/zf+0/HQW9eg55v25EB+I4se1H29TI01QeaHGnRiI9/c gFyt/ HwZ/h879jTaQ/kwyp928wGFzJLiwCpP72oc5a3/k5q+n/p6k6i+d996p/OC5b6w4+l+A59Myn4k2D10q kScPL M2rbmfQo8mr6oxGQd/Le61GCX5/7fpD/DVSH32T+7ut3ho4z25FrrMq22c3M/lRs4q/KFN/2i0A5Yr/P Yl8+i 4lo1Hj5dKc45BGl+pPbGDTIEfCnW8Paa45d/PsqsLrgZe389ElEgZmemn+eiTTP36UIT6/pXxLy4+WjD 4S0u/ vXFpbLz7N/VVRHvx9+YYP+hax7s/lEi7AHzyE/eDi4v7hGpI+Z7Nd9/Jl+Nje9m8ieiz1+SjVCzStRj9 Jqtz7 h5c660BIH22X+hE90pWe/wSIz4aSS6b+0Yk1Bu0/I884CllgqnIpkIv/o7T2Z/Lw9n0ClsU1aRx/z7Ni 6KvJi yEdK49Eb+tfQsYsyjhNz2hHLo++/DBFoLRc9d/p9W+i/cyNyhsWqY3JWZwcGG95/B5CvlHoig/p25+9P y2Do8 r70/M3hsl9V3d1/rr79k1f0D+saVZ/sHcveyPyMj4UbkQhua+7EYTnXm4jFlQp1KfpK6gRIVuuzuOnLx AtaWW zdSEXV7fLWzokYeu74ZQfqll2rpzeRLXRg8HD/sN4qLJjzDS+pbcnLi/IvvApT7vSx3/8eayyP4grW76 mX2fX rvx2GeAroaD/UWxRnQ3K+kKqTaf2d2N/DI4/l4B5SiXtLt5b9U8O/TBDRdcbQwphDv42A7i3wc1Bl1/u r15fr L00Sd88k+l1UYr5sSVz2H8e0bHxqP7+wV9+/Fq+NSnzuRx++O+7/F/security officers and guards/xrn/4Ps3/+DzdUXu5ChHkn+ tLv5Y w8JdxyH0w4JTKL3/ydr/52I2d1UIBavJH7P3jDgJ2/2vbvJR+Y/Oaw15F/KPs7/2Uh3/+J4xr2TmnZvj Xn9MN +8V+Michael/M/9lv/PU/8Y1zq5sr5tp3rIY7BAkl8353z6Cf/FXRR+v7Jkx5JpmdSael+5/8tv6cq8//K3l aPfjw RJ0rtu3eR8l8ilTj9G3n9h0uB7po8+9/wPtvk5McP+g/EXeEvXBa49+VlbIoCv/nLNLwj2vx52c6K1Hu n7g9s qany0Guy/V1fdZ9nO+Lf1opwjnMNmMHt55dAUSCbEGenq1S+Zv+u6xmjjw90QUfastLA/2v3c3G8OC+8 2Gedk N1p23ttOg8sz7coPZZElFzTk23dlwA+ubj02Ll9Q7QaLbiUL/NUnaO/+wpAME3v8uxK0BrdqyFj/7+TU e+k0m K7io60k8xIokGx9/3Pqb+hvpgMn//95QQ8sYeo640gAFg9u6b/9kBv67z+sYvKuvs6Lt1VB3naJm+o+E xmUkl laNSMn7Td/RY2HMdfp1DLnbD75MKk7bvWqFz0+W+TH//Z2a2X/yuZO1hYnfT2e3g/qrNR+bPzu8h4r5m wd9E5 wmpVe2bIXrBr+yOZ0j2vpH16pRb5QAf+Vs72+FeIb+/iL7ZjVxp/cx0X/4YYsxLVn7+BnYyHOsHdKdzP cXD6h 3UpIVBaPBwb3Xf/zU+SCazw/6mvw83w7nlVwg/vcVM/x2keqoky2HFD6QcVLNwvqK6q5AqKndIL/U3dH P3Vdl Jl79xp6nsePRkHtCTahIo29bbTovsLobV6qK/n4Y1s4QL+3nhqIIjz8pM+kuqdL/2ied1kOxtiOWhTJD Wf9Vf pVobm6p+yOCq6yHsiq+zaSlPGbfJI77+/LNYiAdkB3DP5j7F80j/im2KUENl4ikhiV+H60txNoPa2L+b 7bcn8 8UQSb+gQ5WfiH+qu7D40+9J46+y+Wl5O3eTVhQ5vU0h6h1JAvqpLm60JqJrJXci9q++veW2z3QXIumtU 8zfVP 3Pns5AOF6hV+rvYKYmdszftIpD/E996oj7s5K5gN4ceDeu0z++as+G8mMe/VehSGppKd7r/uwr+vZXjv 21q+y ddzP0xkXAe0jhgQds/X7M39/A0398cos0eE7ieV/39zF/6b+d+Tyle6T+Nl3m/W3I/6uHaOcxjIO/zv7 ecDjY k+VYye3H52+n368pvoE/X1R/muGrlOmgLxZ/u84EusQjitE+uiO7bzvQ/L4nn537NzlKh/9PPbL9+cBl tb/vB X/50/7khL+ZfE/LlZ2O+pgZ1K68v1c0877ZmZ3226Bll1xve6kXUv5+8r1nm3i1jab5hfX1v4Y/odPT9 RGcOv C1ePsdRsFL2uka0nRob4TrhrJosuTK5VKSaWscp8HsL4+eZcIavo0nr5/tU/M/fb+WHhPpxdNtGf/pQ0 2vf5Q gacvn57f/QcO2muCL4bmJ5BcB+Z/msBZ8O+AyIrVi46titf/ol4z3JGyvR7wBkJ+id7pISl580wPp1Ho 4d3P1 Q7Ukga2Gf8dPDBXLrYw6TD2y+ro0pEGEZxKvJ45gVO0Y8nc/UwgG3j1AUaVeIfBbjjO6nZ9Zz+4r8q0o 3/Xx9 zB/gZw1NK4EyQfRbxwWXoiiPfuZVGRNmUfxtDgOvUQ8Cp+G+EgGq90C+DKdvq0la3YYdAxpa0KH/HU/a bl60T R/zNB0x546yU6fVOxO3dp7TV6Ujpj2HctmuvyzG3+YP8K8qsn3OP/7j/J3pl//paeC9JQmLiW7AL+6g2 57R47 iSwIG8vla4xpnQyxPMJ1h0Cm3h/WrXuh/5f11iKrads+JXTJE/f29WR1/T+WqjwK2iG/6KF4esp7smq7 9rzLN FsNBqv6+QQTZnrjrwlHPH7vhSuF5xE/hght0OF3ZTBSD9PA/MF/1BVk79lkpWtjrBpRbHGWQ4L7wd9fw lvo5t gv1V6g/6z+yMzB/Z8d7ThhlwO/r5WSbGH+bDwffeL+81p7dW4+J+JuDm89pRG2IJ30P19wtjgZPQqkMv 4OB+t s/tDpVCsXfor/a71gbiBp2Byn/7lE+OIfxEf7U89/LcbZ8mO51D0x/bFhoFpfX+Z/c7veB1a3O7M66Hi PaW2n +/yedi1w7+7j5mx/drfVHq4kl6U/7k+dn4v99k/29TUUasr7Pr/1+Js9ad2ryOU5uh7Ry+3On/r6WD9X fH3t/ sci/0M8+Ch9GPIHT9dI1Ut1lOlr+c2gX6Mg09MfEsPSDcpgNyvCwW6RA2827oG+f1IqBOAtc2i5uiR/n voJg/ zLDYPjM9o1lYs92ruNywig1tYSvAhHItl7mYL2q53/v3fpKyR9CgbZ+ye8yipvL+0Offiep+XtHUp+Cv L8yyj eP7in0wBpRhtifl5oZvcOcykrGo9k31Y7bRO+fZ0j7prdvn6Jh7w+YuQWy0IHtz22n00t3zoenW2UOKs n8lEy 6q7EZ3fDdMp0E1gqbIMNzpNOdy1Gix/lc/lb9/oyijS46ydDmJa4JE4Zmle7olHWdPoMk3FCYfEai9Z6 9rVsF g0ow0BEGxzfCn9237oU3WwxMKm+526iCdzBMM9p2I2gs/uESIopkg5zJ61I02/c/zGRv/4DzLD1f5MCV pfl76 R8jaz1lrYNSN/L+baTr5Gmm5t+wxqcfpC7wseHOawkOb0ALEsaG+e2B3UjLH7PsbS0fDk8nq8G1z9iB+ cukrr /kB6Chjn9sz2WrmjlyBomd5+39S4mb6Pcl+Kwoh0dJ72frT1Nu+mxBgiCuUqzXPdHprk7eVuY5pgCVf0 Zx1v6 0Wp6s+/ui/tVe2Y0Wm/kRzaQ88lvrx46E6Zihp5v74r/mBbdE6UED/HVkZ+jLjyOpnuQyMn8/aXB1Kjy rmn77 sv+pwSr+9DrY6n/OLkQ+Kg1en1GrRHDY1t/rkMXRzPvraHi7/U4Eup9aNKWhuZ4q05xZAi3A0qV1Fr8/ qPaXd ob9ia9F7+d8C42IimCoamS/Xh8sJpI0t2GDZW1iFGtYZdI3/io0U0gVzyIB2Oksk70sa3g1SUSuRrn4H b8tQm rSdBS1P648weUCpfqrAVtM7hkueQvz7+y9dwaDvzY8lHlxx8Cm2BGDJhLG/g8hfoaFlMhM4Y/ZKS6qr/ hvWa+ o0oHjQTgkxsYj8XyK//drXuCRmCx5E7n/y/aAf8trsGNA9FDn23Ylzfr6nyqhq3jwT5wPIfz3F3lIQZZ M0qG9 MJDpb/74K9KGz4KyzJId14/hR7kujJ/nWPIE937SJfzF14A4sSzp699IJwRgpP/lW2p7C16242xOhJF2 6Tf4U JNKVtoX/9gavf68wonBWu4c3ejKX/fOVAqnj5HnYKQl1gN4l6f/tI4uKWB/0e5m3UH4Mkz6454V5GHBi t+gfL iPYR6TnW5UW1N04hhnGwchzzf5cLrLXaolsMQtvhtQi6rKfbm6wEm1PET/DpFJ0hYCNBQogGdiLG4UgB EOtFq 161rwCaZwu97izygNmaxhTIa15njVVytmJq9UiLtoV04ThRWyPx9twIyj0Ju0OKPTaO2esj99apuQ3Jx avftN bEk05mG3J94+AN4mwtG0y9uepP/F2/Oq6dK+E8wxeYyvqB7sIqqYqSyecH7zKysHw6pGaHoDfdNtHqr5 2H9TE 2sJkm/HRXtSHOrV/SN641onxTzNA5zXqaErq02jpM4G4d5DYaZa4FKhz/k/eb/V9cuz273W/YX93d8pO yba+7 u39Cdr/mzs+mjD/GXRY++vFVfi/WVbI/Sr9KO8Z5tw9n7AOMvz/ZQcr5yEW+ra2u1wH7rba4PXw4gi8T +3D1z O1cIG6f+ZgjwlxS3PF0nGp0Shh+d9FtXAwZ+SZq8Xl+HlbGi40qt+JtO+gaWvpXbxaOko9HGRs7CO+7O eMgoy A3ymUskJA69J9n2rprcUdh0bebELsE4FfESLwsKT9SAT8SHomJ3GhrhNB/0p04Yv1m+dzP6QD7o5p76r 60Jxf 6IREees+x/dF/cA99ILe5j7Eljz/3LvRe/w1nJH7//uXGnrvfU/CuR6Qx138w/AXH2J4BzRdqc7v7A/G PSHQX 9K4NpPxnq6y0X/HFHWYG2O9DiHkywz/4HB+WJvCbijBrf8p5F6qgC/BClObO4R+sDlFiv0c5G/DPrDoD 8MXr9 hZS6l3C+D/kYkJ0IuSbw1NIR0NrUfUr3p4I3F/WGw/MVg/MLFJtt1ORK/u7J5OmBmWt6n9W1D/WHQHwb 9YdAf Yk5r7T6R/MOYZkl1FrE6VKPge9Y/GPSHwfwPg/JYLQ7D4CmMlav1b0P/JOTJPG5F8SqHugq7y6W/GPSH QX8Y9 NoYgom9f2Y/QRNFNL4Y1LpJuhf6d3P8wxrWIaz6o5E/IOgWtF5A+lZdJre7v2S/VFkOiF3U+dWjGgs8k 6A/DP rDoD8M+nFbQnt9j0F/ODvUwO5A+sYxGfm0l3L/CUv6n2N5iPH9LSG+MOgPg/4w6A+L4VhN9n+D8YfB+M OgPwz 6w6A/RPqUyR7V+qIfDhxEmpVLbyj4c3X9x6E4x5Y/BRfJMJ3TvulGoJ2D+pOuBsh8v2E0x5E9f1J/DKZ fDMYf Pd4n0G2R/XEWKfd6XnMdRc1j4O4A/EQUUtu2ElWmAv2zyE7Zw/DLUY7V6NlRqmo7b6M/QYYTHD8G7HiF fxi8f sNg/PIOBqf4PdLfNo0z0R6E/CEYYxg7PpKqXh2w8P1J/ZKSYpt6HmAjMc9f0A6N/NRJCfk7KuRoCb6l1 B8G/W DLCbl3j7Rl/jDoD4P+MOgPg/4w6A+D/gNyR4U2EbrAVew3UjYtQh6y8J0Z/KAHZakoxwg7i2B0w0R/GP SHQX8 I6XwParc2w8B/YOLRLA4S4WoGwbr0t5Q/GGy/uaG6QfQqMo6k5I8O/NAZAzqxSpvFBwy8w7C/DPrDoD8 M+sOg Lmz8o4Y/DF5/YDD+MOgPg/0bsV2i9D4K9l4F/SLLUkn1ZnOmKc5rjF2LyekYdO7W+nWrAga6u7P/DPrD oD8M+ iIsHex3p9P/HLsZjQ5H+qNuPwk1b8M/DLbfYzD+MOgPg+kXg/2hzG0v6Q+D/jDoD4P+MOgPg/4w6A+D/ jB4/Y HB+RKdIwl6r8Y/LSwYjI9F+vNxZtz0p9P/APeYnB4A+sNg+wsG4w+D/xCFkmSsN8XmF4Y+MOgPg/4w6A +D5S8 G4w+D/jDoD4P+MOgPg/4w6A+D/aDgJ4JSTwpBNmx6k2P/DOZ/GIw/PWkPeE4G+lTfIxq0n1L/DPrDoD8 MXn9g MP4w6A+D/jDoD4P+MOgPg/4w6A+H8BqIvo5H3d+C9VhWzcd2z8G/GCw/MBh/XDUYzzTFCB5XHI5RyM4B xh8G/ TIGLbn0HoSaXhdzLWDjBzWGe/UOxydDBDug6W9G8f5Z/WEw/DDZLbw5QCR/k6F3GdHgEd3a0N6Rno5Qc h8G/W FSZqr1JrW4iHF0EzQuJn8s5O7Gtp4Kft1W/ZMPZgf1VlJqXe6s9U1M/FCYEqb5XqYiOd6e0F5P/WHQHw b9YdA hWc5m9Z7R/WHw/hEG4w+D/jDoD4P+MOgPg/4w6A+D/hMtC5ZNVks3m6O0u8M/HLVGDS4N1DvLvqvel8W QHwbT Xbj3XwMnYiQ/DMYfBuMPg/CGLF3V2IjRkmh9k2Y/WFBWsyfbDz0d0T9W7r7S+sNg+sVg/GEw/jAYfxj0 h8H0i 8H4w6A/EGsKjC7Q+nZxHmn9d8X/GEjMjH4D+lDrZat6w2V/QWbXzI1O+sNg+zMG/WEw/WLQHwbTLwbjD 4P+MO gPg/kfBuMPg/JBrqmOdA1U+uDeTkd8h3S/GIoJwU7T+oYqLkk9u5P/AQnSrS8B+yHxYhy7s3Q/DPrDoD 8M+sO sHgo7m1G/HYqGtT0K+rZmNgl3h5S/ZYNju5N7MGA+MBh/KWSUukWIdsmViW3Jfx6Uwm5T/PPYFvh7ViJ fBv1h 0B8G/LZSNcl1MbQdJw9/MRh/NZZEfdZGjseEpK8T+sNg/dxCnuyAafqWQqbDFguuV1Poe3K/XBJLUX3P LD8w6 A+D9FeA0RkHrhd8i6X0N6V+MOgPg/5uHN4wBH5u7F+D/jCY/0FNPst3KZQ/w6A/HRfFQI2AmglDAAbaT P4w6A +D/jCY/4XYTwnYCrj2DtQjSnZ/DIGzRm2y1I8E/WGw/GDbFeynZyd9f9Y0osB/DKZfDMYfBuMPg/GHQX 8Y9Id Dekk7i7I/WAMSLR5C0SvPorf2vcBqSer2e9B+l9T4i3Q9WcXsEz3mWL/DoD8M+qGiOfp8m0U/DNZfMOg Pg+kX g/8vxN2tFD5NrV5Eba9G/NCGBiveSjeHUmi7SoFyQkT/THAxSt7m2B1A/WGw/MBg/GEw/jDoD4P+MOgP g/4wW V7z1S1B/RDSTicNWxbNAmkdQ7Uci1P0f2Z/TECzZDoShL1R+eEjOqw1p0B0QIV+MJh+MegPg/4w6A+D/ jDoD4 P+MFj/m6U1XwFiIe5w8B6Phv7Mox4H/DTFMuhjXghDJubkT6Zuo3P/GPSHwfwPg/TYRS3H9JoMddi4l2 F/GPS GNN7N0ZzEdac0f8R/DDPSET7O7PpT9s1Bck0T/KJTTke9JnSjIt9m6H7J/ZRMQfo3EvBmAz5c5R5N/WH QHwbb /rBGsgd1m8Y/RPIFAU2A9LsUuxy4o3L/AZFTPY5PzP5VCLqk7J6T/CWGXan0MiDaAu9r6H0R666YpF9R +sOgP wz6w6A/DJa/GIw/ESzFXTeCQPxg1B7T/WEw/8Ng/BRODst7YBF/e4G9LmLgKj5l0F2S/UYNQom9HeKaO v1h0B 8G/INQLax4BhDaPz9s1X5X/HVROfvn3wXHsnj4a4M/CQNTCE2U4BkJmwqt/1JTJwnSEojkJ2Kjn5Q/GE y/GIw /PJfCZLkKLVjxYA6vPI7Q7WjUefb8q6S/HOASRI8S8KsHods3v0K/GZGRPL4E4GtXwfyv/8Ng/GHQHwb 9YdAf Zw6c4K7D/RTDQcv3ZiBrLf1r3G1P/WGw/IGY0UwEldn1j8B/YJNTDG5ZyH2vNB3w6V+D/jDoD4P+MOgP g/4w6 A+D9WcM+sNg+sVg/GEw/jDoD4P+MOgPg/4w6A+H3KjCdg7M/GYWYymhOda7b6I1tWQ5YQS+MOgPg/4w6 A+D/j DoD4P+MOgPg/4w6A+D/jB4/YvB+JWgCoh0s9B/BNcFiK4L6u7l7K+Y6XlR8PlI+EIxPgi8w9Q/DPrDYP mLwfj DoD8M+nLbCla7n4N/MYxIxK8U+sUgZqj1q0E/IMxRaQ6U+dHdVkw5v9U/UJcFfT6N3o/NVMwq6N4M/WE w/8Og XxniDsk5z5M/DOZ/GIw/ERhLnV3K+aIhLdy5z0P/RLgGbS2EHq7cKI2j9C+U4OgV8BsWbup5f3U/GPSH QX8Y9 BaCcztkT4Hh/jDoD4P+MJj/YTD+MBh/GIw/NGdMwW8U6u7KxM1Q+qJgAzv7m1Y/ZNgUdM3L+eEfAuh3f 6A/DP rDYPsBBuMPg/4w6A+D/jDoD4P+MFh/waA/GLuDlG4Yip9Y5CpScwi6u1J/GCx/MRh/QYNZRU0LsC7jGU 8YjD8 M+sNg+bLoNzg6o2H/FKjCJXsCwuiHaX8Hik7Tkk1N/WEw/WIw/jDoD4P+MOgPg/4aXF2w0Y3M9c2Z/WH QHwb9 ZjOrOd1p8H0P508R2KsN4InOooq7h6Y3R4S+MOgPg/2qKN1gQC9dCS0UtS8Uod7I/WEw/WIw/jDoD4P+ MOgPg /4w6A+D/jBY/3VbRfayWdw4i6T/LBmIjX2B+sNg/ZAP8OvCdzc0l7B/NYDNOE1R7YxAlrx8m5V/GLx+w 2D8Yd NaEe1a6E8B/WGw/MVg/LWHXmkMRzciU9Ncq7X1t9P/MMtEpS1V+sNg+WyPthl9s9F4P9Y+MOgPg/4w6A +D5S8 G4w+D/jDoD4P+MOgPg/4w6A+D/jDoD4P+HZm3ziY/GPSHwfwPg/4w6A+D/jDoD4P+MFh/mXR6RLG+MBh /GPSH flNCbmxWDQveML4l9L+D6ReD/cXYmzLxG0A+MOgPg/4w6A+D/zUbV7E9AquJEuf3QGU9HaU+MOgPg/4w 6A+D/ fUqF8M8AzkUNro5OSC2HbT+MOgPg/6svD5gDV7q4Z+M2WtG3CmVypkKaxaFUjx3c8F/PVoOBJkSGD6OS L8Y9I cGunz1u7FcD5Sca3Z/BDBZKE2I2MjZdup8p1N/IUSXPK9TpH6PKXbi8E2Y/RRCDzs2OhIrYl4q6C1Z/W HQHwa z6qTjE4MmS7E+MOgPg/4w6A+D/jDoD4P+XZpEm1byXYw/DMYfBuMPg/2gwQ8n2E+D6ReD/rIiE9L6Eah jD4P+ MOgPg/0mAB6iHY4g3O+D/jCY/2Ew/jDoD4P+MJj/YTD+MOgPg/4w6A+D/jDoD4P+MOgPg/3drR4LiluI oD8M+ hQwGfg8h7T/DQjZjZ2C+pZkSvg6e1U/DLYfYDD+MOgPg+kXg/YAQG2Y4KqAjsh4m9Q/GPSHwfofBuMPg /GHwf mHRSqtGS6x8W+D/jCY/2Ew/lNJogkSKjn7v8X/UBgKeR2E+gXgVnd4z2O/BFdDjS2Q+mUuHhv0a2B/DP rDoD8 Nzb1hMA7s0Y+D/jCY/2Ew/jDoD4P+MOgPg/4w6A+D/jDoD4P+MOgPg/4w6A+D/jDoD4P+MOgPg/4w6A+ D/jDo D4P+MOgPg/4w6A+D/jDoD4P+MOgPg/2HMBh/DLKWZA8K3DfBptf7y7E6SvpiB9W+MOgPg/4w6A+D/jDo D4P+M OgPg/4w6A+K832XeM3L+fXjKlr1a8U/NRqFmW5Y+sNg/NcW2JoMucz0m0P/GPOPQZ9ZqD4wMG8e1U+D/ jDoD4 P+MFj+YjD+MOgPg/4w6A+D/jBY/uLYOerLKbx2BuNyYqW/GBcUcT2E+sNg+YHB+IXzHom6e4W/DPrDoD 8M+sN g/Q+D/fQyT3B3Ctp9CbDqXf4b4E7Ek35Aig4N8m+F8GeXfpaQadfMLry0i7S/DPrDYPmBwfjDYPxhMP4 wGH8Y 6TeQ4NcElbkTonvSMvw4p8K/XLbUsG2T+oCiOnc3w0P/QGoNoU7L+uDaQca8y5Z/DLb/YTD+MOgPg/4w 6A+D/ jDoD4P+MOgPg/4w6A+D/jDoD4P+MOgPg/4w6A+D/jDoD4P+MOgPg/4w6A+D/jDoD4P+MOgPg/4w6A+D/ jDoD4 P+MOgPg/4w6A+D/jDoD4P+MOgPg/4w6A+D/jDoD4P+MOgPg/4w6A+D/jDoD4P+MOgPg/4w6A+D/jDoD4 P+MOg Pg/4w6A+D/jDoD4P+MOgPg/4w6A+D/jDoD4P+MOgPg/4w6A+D/jDoD4P+MOgPg/4w6A+D/jDoD4P+MOg Pg/4w 6A+D/jDoD4P+MOgPg/4w6A+D/jDoD4P+MOgPg/4w6A+D/jDoD4P+MOgPg/4w6A+D/jDoD4P+MOgPg/4w 6A+D/ jDoD4P+MOgPg/4w6A+D/jDoD4P+MOgPg/4w6A+D/jDoD4P+MOgPg/4w6A+D/jDoD4P+MOgPg/4w6A+D/ jDoD4 P+MOgPg/4w6A+D/jDoD4P+MOgPg/4w6A+D/jDoD4P+MOgPg/4w6A+D/jDoD4P+MOgPg/4w6A+D/jDoD4 P+MOg Pg/4w6A+D/jDoD4P+MOgPg/4w6A+D/jDoD4P+MOgPg/4w6A+D/jDoD4P+MOgPg/4w6A+D/jDoD4P+MOg Pg/4w 6A+D/jDoD4P+MOgPg/4w6A+D/jDoD4P+MOgPg/4w6A+D/jDoD4P+MOgPg/4w6A+D/jDoD4P+MOgPg/4w 6A+D/ jDoD4P+MOgPg/4w6A+D/jDoD4P+MOgPg/4w6K+m1/D/GYwlBXUAL70lGeVw5jGxJg87fed/65aOCk8ET dJRFM wjQr5sO+bj2Nq3TMAS9qPHP/p/8a6dIE859tllj2nTAHOX/0EzAGgcn1bnMJRTJB6wsbdIjdr8fRjh/7 aVv+p j6m2qzcpep/6i/Ptfk9/7o2iIeR4ypnx/DK3B3VjctlS/+FYCoK98Vy7W/L1VFXkew3cyuxO1xBx/a7w nUj6K oky/iS9mxUhz9CquM2RWRafbP1Pujf8noCbURQdEqZWKfuavnPCaiG/hWf3YsS1549eGFEAKz7HwzkXD elH8b uJXE1q8Pj5sFjRU9N4ml6e+SEuTUzZWnYqLtkQBJC5kxmQvP22dgdVOFpzPnMKMCq0syS+raXm6ypnUp vSSow HP41PBuQ2AZ+fd19MIyLzgJXI32sspRdr//ttW/wIF2jEFuhK2GTV/liu5bwDJsVJHpa8GBbW5o32Jdb 1LcZn ladwiWhs5SgKcc4UPiknVymnL2bLjpQVl2ViIKf4cNk2ElonZzrmv2oLoeQwiYIh0JWEJIwu2YhP+2v4 vT/A3 kOHM/kr0b+6RMemhC3Im+cxofmHHKqLQpEr4PoOWK4qPKHlPnhH3ST8nBKJVHcNwLXNAa4GpcyvkA02Y qFFeV KpjPt1rl8r/a7Xyb4buaBPdtmH2GqCE0Yj8krMfMmwn7dGoBe7PnP1S4AqJFqk4j9p5z7o4j8kGH63LH cUy7G 8C7s23zqb4NJ8fal8C8cz+x+e42tzNtvvJOq9eQV+w4a40xOB97Alj6KhyoappXeqR61vsFM32l/YBqZ 7Gjvr doFv1jMi5s4jmWQp9iEi8CN3qkEcjrEjy9r/CRQp3XC4xDGFj84Hzs32dZDx58JQtWNuclgI5d5qKetj HhWbB Y4L1893pxK7L96/+qv31vT/QT0wbXA4l/kdQ1T017Yjs+euLu4q/XrzA6ZszVNmg3h0b6Ith8JcX0YAT /Q3Eo tsCJNZANX/69/zq/jT+dgRZHakjaJB4Mp+3uKWUrHdhe0jwxjbX828eJfDQ8q7dDJciYpOS9o0+6fzP9 GwHf9 WHrfbcYMtlT1tOgsb+9pJ978G3eR5+Sw2Ylb/LRh5HWuzCn9A0Wk7zm82fyltCFJ8xQz+dfyyw8457VI /63T2 8gj/Fk21Sk2IRi8jv8gnycJ294LaS+DqGJbC+1nLHqil8l9ktZu0gy4j18gxZYbE1un7XVnt8xAFkx3s +NXpE A/ujAb9SN4Nb65up6oSSrSh+Zv8El0xb/7a1+JM6/wie7gLdOp57D9cgTOdYxL0hSid2eDt+pNU+708T WKNt1 wwT/0bPsjDnPSZ1xa+2RHnbyW/GCzF/KnRxBBC3V8QeTSPmutrdsetCOvoNvG1FqN+/TI9q7/i3avLt4 W8ub2 bvfktlF3pAg+63XeU+IEM68ovNUhrRWssQYkU/vc33Mz3EWtg7ZsaKRK+6p/IE7TMA6IBlelhYc78oyf Zt6Vc hCqu7X7jFWrW8/ij59HdczK+u5sLJx9ezuKM+u+e/beUvq/3TGEbTxk0jxrtTujW5LlEEi4XZpAOBueh ZPdbq gi6RzrAFwqWlKPFAIm60+dte+HpB8v78P9Exy0flkfotcxWSlaR+xuRa/AG1LPT9up+ZdZac8Rz6jnUg UeL9V eYv0/qz+pNxmXl/gI2U6kqkdWkCVL4i9ozikYUeryD9UmxXUbCF4r+oejtrfVAmY/VZaYXZ8JnB7E2FN f/tZX qE1+gQg7sGEIiTJ3/Z+W875W/s/vJcs2u97X64q9CH5haWihAZOR45VBEUvrOvx8ftRwfACinzdtaYfO 6Iv8I 9ztulTEc+/qXpDlLiVyvA4D9dJ90ft4aO5v/qDR3pg8oz76/5+V33Ur1UoXLB2D+yFIdUitQUz9Tj9b0 yn8NV FZj57GAYx4A590eLLF19hbAw7zq/lzxoGtSFyH5Zq7LKC0VxQ/fCdPibm2M2d+Rvbb5z0w7Tn4j62VMQ 5q8wf +UFbzvlr2/lR7YV/BWJlh/yh6xYs24CQr5TShO93n/HW3w6ngv3cqzU3CC3je186GFEMMcsk/hKafW/S Wn+Cv H+FtwwdCPCq6655Sjjp/MBXE1FC/OGd0v96sh/tlwy9pY66B+s2eWQdPf+jry/4cYVgkvBFvANWF09+P vVWKN COm1/ODgO0FRNa6nhbU15/INtbpNSokniShqNWQyoy1u5JWSK4yxdQf3Ff5vbf5/OtOghO1wTvU1Vf5I Pen9a POgzVrsdL+NPH+u/s/YqXisli4v3LkN8aS3K7d3XnwCywN/pi2nPjf/LJGp/k9ctDp77kx31kmX/VTY2 f3sym Yc47sbqK17A//CviEfXab8wV4MKM6ZiYyDZjrPkIqbEbH1HRcPte5MjQf+gsUf7vxOGj30r3q2R9w7B4 2OfB+ UD72+o1Zms7+Q6/AW1HaLev5HU2SUF46l0uHTclk4h2m/0/ouWX14a6qnWC0+4obg9QgcZ/vR3Gq5/M2 vVupq /OaXhwz2t3+cufte8DFqjts+ykzPKgdL84AZ6I0nql9bS6vLhRyQ0IyCAScByldSakh2X5pbDuB57c5A /8Vic rUNo4cvR1pAO47cQT67hB+1L3t/Yt6U+jz+Qt4wnZh0MMj4oS/xdjnHwl+6XDAhQ4jIg4pM8Pv4IdS4g g8+9Z /4SuwT2/i50Hdnfy4/8ZSt/x0DqgO5N23sdMqgjSG7jvYhak/zNddO2QaTfqoCVGqEImO+m0pEYMVAb/ XWma/ 79w6Hpy3OEXrDYA7jWroReKnlzi5kwwVuq8V85mD/TsczMn/2YtR4nGzqa4sJztV+m/obN7ktL1B4/p1 luedX 9K4zu6uj69/FCYsv/kqlPpVbu5+whk7vfXAcRHKjr7k8ddf+ta+33zAEmHLkN16tPCZaoGEskA/gNBh3 LVIsq J1tcuTxgbHGXkSsjRQR6k5zB+dHPG280BzbEtNGeQ7W+ps194Jp4Md3vV90BsEpv/mdZnoY3Ova/8KIF gKz8b VuyTOz+KB2f5yCazPp1Y2lQ+pK14eGg0Hjib4cwoXY6d8d+jalFcI5uECtPjhtcbuqZhK3udM3DX7oLk CK9Ci n0J+cJ6feFlwmY+apRHmqMOOkQnu1x1OyiIVhSEaakOtWmT4pcKvsmWG1max1wan6rD2j7ub5UfnrSL9 kU6Sn kmh9G+raA2iSZrTdjV2lAIR2p/0zDt9O46sitjMsSzQTNp06osX8rxmSUCpGyys/4cQrnbgO4A3FY1D9 +6Rzf M24lPaOY9XPF2ChlqU9NxTwPNFaX5xa/b+0vljB5yrFqIbyNldy6YsBzKG37t+VjtHAbQuGA1hCMD0BD E+2BE 8TQnYVViY9S8bhrjOuIsSiz/Zr1nKkClLN4JSM2n+YUYW5EXvKhanaRoDvMl/fs/zpM4fd3bSHJ7a+w0 23Z5a bdM08U6mcKQkBWUFwJ5iIttrQqI5zXFS4+OlWbBn6mbfxYJQ/bMx7FKXUIEgakmB+9V4dTb/Pu24zwZi WvsHw UUR0g0xMg0ww039zyv997pAxD5VzFkiU8A1Y/M/z+HS84F9I56EJ/NNgfDfZHg/8OFV016A9R0xwS/dF gfzTY Ob19C5Z35TJ/NNgfDfZHg/6UEW641H9D3xkD/iArfbVZHz62K1B39VW/TAyiBnNT1kzfx7o1WKb+lP7G vEXV2 gzobQ6z3sCs2r/7gA/se3cHzocjePEUrwivxPt2cJWRm2gLSv8ZkVqfI4EQbzT6Qvefs3CFG0rD1pUjx XzzwO 7lpcgk2s5a8vfX2GxwiYDKGxGkcb+iXKwZARuv+mtv+Cp0cKyOIc2LswRUO9zcMx0arehJFczxH19TDe Z/PnQ Ci5Qkmyz36imlHDhx7yKj0443Wxonn5N4kGrhh1y4+/sr/s5JgeuwsaP/2Ln6TO9HDYpLcZf3leDMKF6 wgdO4 AqayatY7ap8gpSe13QwV/WCR+MwUrtjw9/Sl+ICH8C2cTdzAAuqeylJ1bway59g/7U82/qJn+5ubemKy szjXH Q8Bftiqv4H2y0/V+GuyddXfWC+u9pUJc2//X4g2tXu+h3rYUj4+Kh/906eBYpwlM3hs9Vkynw3x9vdiw xrtLa 7FIyVHoKQArp350Uyc6ppeVniK74xp+iqEGncuCdg5MlMBitZ1tLD9mgFarXshMRbhBfmfm6/ahl2utv L7hmf 9G27wJBX/w1CnoJHQOmp7qQcpvszz+1u8fH/ARtY1AxDxS/ldkgVDzKi2nOdNBH2MVZtmjebc0jHSs/I SvjCf 6K+U2/PQnZiWjWLG0qv7/Cj5vy91ChPQy0ajSiLB6JyqLga7SYnYSgcdlsQHKJ0BKOhHdzGIyBa+/UwH FJb+C m/cJ8zpTT9vc1+I0c15xZvvNhqvsZfesKQxec9F+4/fnxsOsgEdDldQ5s3MK+E/MLhyo2QZA3I+HmD6A +1/pf iF5YO/+Eet8iB+3Xyp+KQdfvhMXkONFCtXhhUGgkkzKh2h+FV66249r3L4WbJEeQZUhCqg9lfoTZytvi zkW2Z kEqVM+VPFVDPfOh4ZzEAwoI+XgdX19+bfeSn+ma0e77JdtUIE8EhDkfn/ZaG/KPVAasfkb7u2vjljk/z A6Fuv MXY5ukl1mKy64GA+2m9p+YK6ZcxrWOktB5IeYkFt+hV0bway3y9RH7+FqByrfDNr/EA9KB7ogAQdM8i5 YutB7 9100HUcXSWRkr6M+m4yz4/Ve6FYg058cspuUY5A5rGUNly1O4Et5U57h1MUWj+BpK6z0d04IrE/aVC8p bv93j NG1TGckaLM3T22fI0S9h1Vwdj1Faw6IqtQAe/wnD1ssi8S3Gpa0ylQY4CBpWzueuS8lZVbt6meO1houx wrnRd 75dLOx1k62VquxiH/bfmw+/X1ihs7T4hVYhjExq+3794/bTX+SJVZ5w8yo44v6C8zZ8lKVPhovhJDV3b 2dsCf Z4O/PtcToeyBRHaFoHLULtv9EL7yyMRL63G70xW6p4UVZyUA3+8bX6km488M3C/HfAepK1KNR3oOEunW IjsPR 6ex6kcyxqcrC4LMTf6lyh8zOP4vVT9NOR7GE245BGxVPoUC1vex3D/7JPClbfkX4g2+DHUWppC+Hg5dd 7Dwd1 6ndGwEflYivo60ZNMfqyZfvC52WW3B9yGuO3bktzoHXtKbPEXNLvKUHNWcAVqwltm706wa+Bniw6Aul/ ca+HN fnr/dTne+9gsMuu2Tre9QILmE/YKyVfIZhIQ67Z8iUbV7qO48XmjL4V+ZKtnmlsR5XXbgKvqKdwXHz7u xp6Bw bldCa+/N3a1JQgVORuz70lzivpEDB+3oDh00U5slLbTJYugRZ8vG3E7O77GkG94YnLf/RXcgm/g7X/qz wZ+nb 3LO3IY/b9F2murB/mvk6EaUHSHheXLb9crWFxN/Mxzau99JvHjUGt2lDG8P1MnUmGX/Ywf0Qxi9fIyla Cfg79 8YE89dTq0HWur6y0v0gw35DA9d3p2rai0OhEdlyQSo8V5/gD8mNQ1G1Hn3uHB+RrU/DMtuf8Dxi20eup XFAFd zeFn+5lmnsf41AYz+zsAfxt+nOjPXP8bOizJJ+Zktgjzto6yuLUw6qiO+Ona1O8rxrwqeeCbRtlp/gj+ Qg9PK MQiP8LsiKOe4Y3Q/NvpzirU/qRf7EXsncjTN4SG/d5MdzY0q/RWijr+Xu7M2d5T86v9hwJiMJmpqBjm6 bvtzS wqnfty2Qu/1cXFT05/eQv3tBL+XtKkb71jJ8kz29qcOj00se/ayIji3RSXVFxD+5FJeq06/iL+OVy38F dh/DA /4cmCwsA3O/UH/9xe5yN4n09/kW5wnWMm+MvQnqsYfJAv+bEm1q7kHFp3L+lgd1E0y66oywS/XHm8cvh VDf6V o+s8bhL3ler8cWMD/NdSm/WHITEHEAD/5dT+2tCoN/1QPk3BlqArCE997Y4ImqZ8/u5A/Bavz3PLPU6Sqs+BKgX 4c50E 4k/CLQT6g/hLwBMcvVV/c1jVE1Z+REuCLlfzySJQKgp9p0RiR3cRWSOGbb0KH9yz9YRp8h/qogMlP26w DP48U /uzwzAsBLZ//t7GoyD7vu/1OmGKi0pA0UQX/wr0zs6doXWXAEx4URn+vTlwQC5G/pMNaEN15TmB0y4Um aCMVM MHrgedbk/WMqWi8I0kdjy29HpihMWykhR2LfrlIMyDU+M/yEW8to6CrtU1+DNjjL/Dvkv5ecV0/BL8VY 46BH9 kHFjdW9I9q2HhCCOURBsS3hTV3Y//1Z7X+HliVrGkPTal7O8Ne4Ujzuj7MtTxciPlM/ZDf9WO+EMrgyG tgVG3 /Vs/zRjnUdYviXy2OywX7WkMIdm/6va1biaYYp92ZXeNlayJUDG7C7h7i8N1K9jRArtOnO0sthfC8P/B ZZrt4 Z1xihMoHqBWQgxs85ksJv4VJhRuSm7aq3J+D9/BR5Lf8m4GpexmrdE/lorvcWVr3AHzswyay1ozPu3GU qudff zv4wDcm0O1DBw+opFJ9O7w1rsLGIh/j926Y7kWHy+PQSLXHgdauf5NEc/ZW2YyFqPhWIjW/mAwqQZuaz rB8Z+ vBs9ykB8m5cLj0swWgfFAdGWVGSuVFTgc2Z2Oh+Fjaa97xioqS9mTMxxprLBQJ/Q64G/Yt+TOd2TJLo/ /klRW 2/rSfNT16/A1SvXwSl9MOBaB/pgapqVJXS76Wtp4JNgfRWpiLlOo5Z+HIBGadRXMCOfPUNf6Vgpplvoy R3+tq GtIL9gclP2WlS56BafzqS5gO6ob8MVU37eriR8aGarqtWS6/buL/g4pub5boEr8MyGvR5Wpc3ECYWd/q lqFn8 iAsOqyT07oIMf/Xx+n+XDkVqa2zFmfkEvw7M529mBlD4ERlMBajSUxNDgnkE9zZG7YvgtxCMkjXVzKkd eHDnR 5kXKgaW/hX873ji0NrGAHEs4EX5VfH7RcazcLTd04lXuaz768ldvEW6ObH25+tc6qhhlCFR2yG51O/Ou pUdbf piOs0CmDb62MzXxsKQR9ZSyl4vnXf2vFIN1Mh1c7D0cJXT/4st15LfjKUu38ZxZwWsE9JQGGgwVgajIw jlaS9 Cxunf+7+j46fnT7ifaVUqpb1Ul420l86gT1+sWjt2J5IoN+BLh+Bp7B8fiDALcy7oWqiVl7w7D9kT0/S xWKXt tcI7Ab6dUA+Dw5hcXxLsCv6doP68u/oqquk/AEfzTxA49+3uI4oV8JRpPSlKNyy2dJcVvl1tu58dkqSz 1fdp0 ubV5nUyCzd/iain58jerdYty/ny8DZ/4J5bt+etfL+HB1u1ucxilfxF/4jEI5R5h9esi36wjOV//htdP LfvcC qafdd1HBVt2l3/2N/Pc8r3WoCB/A94c+V7A/DwfDSdknib5nsS6d3L7X+6PB/evpVkukeyz2j4G+aLA/ GuyPB xxhdv2byE2k3Y2A+6PB/ustBoleuwp1e9O+aLA/WuwWTtyskw3uaS0g3P6H+6PB/akaKfspwrs1s2L+a LA/Gu aHEcypxx1ibQ0k2O2M+6PB/fztClhifdj7f0F+aLA/LbkLHyafyy6hfT1w1U5H+6PB/gxgSggmxzv5b5 H+aLA /QbjCReksht1lzM2a6U7N+6PB/aedZsbqdpo1n3W+aLA/KjqPCtxezo6mpV8a7M5T+6PB/miwPxrsjwb 7o8H+ aLA/GmfZJapgii1nbV2g1Z9T+6PB/whyTkqvciz5n1C+aLA/IppZRfiapk3wiN8s1D6M+6PB/miwPxrs jwb7o 8H+aLA/GgX+4/+fM/ESbzTOCnrbhm8ixUmPl/2T7OsSm+OPBscfDfZHg/9U5LxPPnvoGiZWo+svDY4/G hx/NN gfDfZHg/0QQE155E2GNf/S2FrnraZEr/0D1YvQc/4O1FzOo+OPBscfDY4/GuyPBtdfGhx/NNgfDa6/NN gfDa6 /NDj+hBS98oW2k3OuQ6UgqltHGi17O7RbAh2ONtcgmkC9/wkfIzciopk4v6L+aLA/JcxQRhxfyx3nbX9 afP9G g/7I6SeRc/5NIY246O4E1xwS/fSa2OrI0isM8n6Pug8nNG691R6G2hxL9e9w7X4R175q2J6U+0JL8J5K 9keD6 n7Z2fpQ/uEekbLYRh24U8ZOUdV9/mmdYnpctko5n6A+aHD/O5D89hO4E1S76rK9E5Cslpx3i7G+aHD7R 4P90W B/WSo5u7P+aLA/GuyPBvcfNDj+tSQ87aF1l5TlC3T27FW/NNgfDfZHg/tfGhx/UMrqXsHFq6b/Ghx/L8 h/AUN X9vJSGdGcRFD8snAewQ7LRT7wk1IdXZniCjZkAT2rax0JB70ZRpUpAV8whx9KPlYlDC9rqr2YCNgZSuL gL1By b0NCIDUoRa1UIFJhDID5rB3UsHTyEXZfYK6jN5SDUZ2YHKTuTz8kxTK6DITdZvTwKYChVDAGYWueGBDe L0YxI DN0CCVwLe7XIEBuCM3HUgYjRJUjTXHKVyScKQIrWvOzCcCaZELKFLxiDKGsE3Q2JIT3AFPnGa1AHDWhK C9GNS JxLbJjTOHPSpOfNXHnLpQuUfVrBCTUUg4MNcYdM2xWQyksW0TqEIrzY5grMwReJzKpKMPRDZwwQPUsY0 ltZzE qKlWpVPGGWa6DCmNzR2M3aLcDpKR9MIO9MM9DAfLMZnSaGBw0B1W6tVCyG5C1dByIdZB3BU6BHB4VNBW rZW4+ HdSdE5JHJYdCSKF5WS2WdBFpIK6UbDCCX2BncIAeWb4lXLRfmCavyJp+AaTvE9HYWVBQDCU6TE2JdGBy IC9Fe XGFI0YswVYmJz1yTKzcHxVfBQ5rEB5+MW2MVYVJSoUOTjNiRFswNWkeSNFaJMs7Q3S2TUMaT2KJU8Y4L 2x1c2 lvbj4+VV4NJRRcA2LFSJPKOmEvTWykJBofQXVkVLu9R9C8PPNlD7FAP1ezG5r9RS6+PiANCiAgID4+DQ o+Pg0 XIB9hk5OyAMmcZXNqKG6jrr7NLItwAEWxI6LvGVElWZvzL9DqcKqiDY1IPCkmIPmzTB0JJLIlRSM4GG5 +DQpz hSTzOT1CUum/kULrH8klhNPrFGjnfx0v26a/DqScKC5gSpKITY0bO7ZstFx6uhDVjr8VA0qgBrcwAp9+ DQogI Eg5GtwjcI3sqDXkvBd8fIK9cy5eTc3oRUopGEgqeZ4mqgW2uY4cRARhKxZ0uoL0iSP6KC8kUb5IQWUuQ DxyZG Q4AsGRMDulpS8fLtOwDe5lbIS0nSlvW0t6fm84Lh7lfpriHBy3TD5pLz1iAh3eEFDsz0htbTW2BY7bLl c+DQo pBTUjQK3fUHR7DcTZXx1BQZW6M8v0gY8nzHL3PU7LCbNgQQEiSOSuYGZpHVKaXBRbAXXqJYGbUWKlNDP gICAg ICAgICAgICAgICAgICAgICAgICAgICAgICAgICAgICAgICAgICAgICAgICAgICAgICAgICAgICAgICAg ICAgI CAgICANCiAgICAgICAgICAgICAgICAgICAgICAgICAgICAgICAgICAgICAgICAgICAgICAgICAgICAgI CAgIC AgICAgICAgICAgICAgICAgICAgICAgICAgICAgICAgICAgICAgICAgICANCiAgICAgICAgICAgICAgIC AgICA gICAgICAgICAgICAgICAgICAgICAgICAgICAgICAgICAgICAgICAgICAgICAgICAgICAgICAgICAgICA gICAg ICAgICAgICAgICAgICAgICANCiAgICAgICAgICAgICAgICAgICAgICAgICAgICAgICAgICAgICAgICAg ICAgI CAgICAgICAgICAgICAgICAgICAgICAgICAgICAgICAgICAgICAgICAgICAgICAgICAgICAgICANCiAgI CAgIC AgICAgICAgICAgICAgICAgICAgICAgICAgICAgICAgICAgICAgICAgICAgICAgICAgICAgICAgICAgIC AgICA gICAgICAgICAgICAgICAgICAgICAgICAgICAgICANCiAgICAgICAgICAgICAgICAgICAgICAgICAgICA gICAg ICAgICAgICAgICAgICAgICAgICAgICAgICAgICAgICAgICAgICAgICAgICAgICAgICAgICAgICAgICAg ICAgI CAgICANCiAgICAgICAgICAgICAgICAgICAgICAgICAgICAgICAgICAgICAgICAgICAgICAgICAgICAgI CAgIC AgICAgICAgICAgICAgICAgICAgICAgICAgICAgICAgICAgICAgICAgICANCiAgICAgICAgICAgICAgIC AgICA gICAgICAgICAgICAgICAgICAgICAgICAgICAgICAgICAgICAgICAgICAgICAgICAgICAgICAgICAgICA gICAg ICAgICAgICAgICAgICAgICANCiAgICAgICAgICAgICAgICAgICAgICAgICAgICAgICAgICAgICAgICAg ICAgI CAgICAgICAgICAgICAgICAgICAgICAgICAgICAgICAgICAgICAgICAgICAgICAgICAgICAgICANCiAgI CAgIC AgICAgICAgICAgICAgICAgICAgICAgICAgICAgICAgICAgICAgICAgICAgICAgICAgICAgICAgICAgIC AgICA gICAgICAgICAgICAgICAgICAgICAgICAgICAgICANCjw/kKXtB3cqxWHdhzD8F2blKf4OMu2TXJ5nf6P yZWFt WBlkgwLaFbkWQgKzWSSpQxsVIyj8EWtkAO9NfIQeT2QuP2ArRWwtBT4LGVBeDKUcxMUcUDVoSLFsOtP8 OTJdD QacJK4FrQDdMRnaOSPpMZZuDdYqVWDhZHSlDFRwSO3SNENqE005ngTgQk2UAy2TJuQaON4nwb8YPpOtC CBvYm dSOaa1KInlXZ1AgXPuQ1RtrVDur9yXDrIvI4CDQSQaHXCiEn5KHIHzDsTvDIQlZXkgVM7gEAUnKQIXkN xlcyA 0OF9TSM4ncdQuRQ8RDyArTp4xRk2OQnYxB3AkS6AwSBZxWUPHYFhgXM9IXYSkRAH9LGSfEBTfYQLYOxE gL09w CT2ZZ6Gco48qItF7FOZtRmHuYTvrLM28qQlpvzEgbGVgjEghNC3UTq8+DQplbmRvYmoNCnhyZWYNCjAg MzYNC zDeNSYiLIMvZPYxEnC4MfBhRa1ABPVbUOEvGUZfTrUeJZYyVLKdPLnrBPSmNHE7XxN0GMEoACHjUS2ZW jAwMD GzOMV3InjhMLXeILRfdl6JRRByJQBaPAA8LMWxNOPdTEIrBEuuKFXzDKJcCLJcKJAwWPSgMM3VIrWtAA AwMDM uOeaaGCEdBRDevg1YUTZfTIZuTvr7MSRfNYYlEEFqBBrzJRKeJKFwEFm1LBGaJIWiBI9TZxHvJYAnSCV 4ODkg WTXnJRLsef6LLNIgUWMyQIN7DgHxENWyWUYqUGenSKGsBON7LMKzMXKeRKKlDB8RFjOrFQXfBVWhXAKw MDAwM HNgky0NEOZuGGUkBeXjWlYaSKDzNZSzVBbvCKKvSZQ0BztaHWEhHJFmWQ6QCyRvRZGxNUk6CSXtMWAlB DAgbg 1RAIZjUUVvHvz5PqWoBXPvARDiPNowACNlJFD5GnXhQEKpSBHzAG6OTqOqVNKzMCi0MEMhODUdXCCgbu 0KMDA iNWTvHRCvPOTfCIOcFFQhSRrgCUXvCSExQZbxVTMbNKMsVV2YJbNxMOTeOAKaAVsjZHUrFCBrqn2LONA wMDAx JJW3XGXpEMEqYOMcMAtfOCDaPKBcZETpHZZhUMHdSO9TJyCzQDVcNIU8JgHuTQDbFMOnwd6WQTHwSEOx MTgyN ADcKRPfMSWmVFltTWLqHPPvRjo2KEQlQSDcDP2NVcQmBFQcBVH0GZOzLCYgMLDpek3JEBEsPSNhMfY2P CAwMD OxMXUxRAdyQJWbUKV8VMjjPPXwYPFvVL8DJdWkGFSoOCOgLGrsWIQyJICysv9HSHJqQSOkFES9ZAFaYQ AwMCB oQYaiWPTlVGPnKry4XUJoRATmYK3ANtKhYXQpDUm6YTFuOLCvTCAxld4JCVTwZWI3SLX6RaPyFLCfIFN uDQow XUJrUHYpAsF6KROvCHWiCT9ZSmWfHVbsGDNGUjm7KDbpJ6i8DVFhWh0DY1Iov4EpJiXdYYOPHVkdOQ4o Rosa ZAaDb1VO2eXJgynDSOfVfNmOvE0TYLmZwr0OJgtGsk6Rer9Smr2A6YgAi0zNGGcVoXoZJYtVtZeQIQ4L TVhN2 VpGcQkLiL7UXG6RmQkAqKaKR6MHm2WAlY3SCT5wQGbSu6AARRcKXB2XZmnKAISEu3Z Performed By: #### LLTISSFLD A #### [facility] [address] [place] [address], [phone] H AND P (VIEW-ONLY) Observed: 04/10/2024 7:51 AM Status: COMPLETED Source: THE [employer] CC: Chief Complaint Patient presents with Local swelling/papule/lump/mass New thumb sized thyroid cyst HPI: This is a 63 year old female here for f/u of a right submandibular gland mass. The HPI from his last visit is copied below: Fely Veliz is a 63 year old female [...] min Stress: No Stress Concern Present (04/06/2024) [employer] - Occupational Stress Questionnaire Feeling of Stress : Not at all Social Connections: Socially Integrated (04/06/2024) Social Connection and Isolation Panel [NHANES] Frequency of Communication with Friends and Family: More than three times a week Frequency of Social Gatherings with Friends and Family: Three times a week Attends [employer] Services: More than 4 times per year [...] but hard to tell. No surrounding adenopathy. Mild tenderness over sternoclavicular joint but no masses or swelling currently. CV: No clubbing/cyanosis/edema in hands Respiration: Breathing comfortably, no stridor or stertor Neuro: A AND Ox3, Cranial nerves 2-12 intact and symmetric. Normal affect. FNA 03/05/2024: atypia of undetermined significance Assessment/Recommendations: Fely Veliz is a 63 year old female who presents today for: 1. Submandibular gland mass - no changes to the mass. The new mass she noted appears to have just been local irritation and swelling around the clavicular head. Doesn't appear concerning for LAD from the mass. - pt scheduled for surgery on 04/22. PROGRESS NOTES Observed: 04/10/2024 7:51 AM Status: COMPLETED Source: THE [employer] CC: Chief Complaint Patient presents with Local swelling/papule/lump/mass New thumb sized thyroid cyst HPI: This is a 63 year old female here for f/u of a right submandibular gland mass. The HPI from his last visit is copied below: Fely Veliz is a 63 year old female [...] min Stress: No Stress Concern Present (04/06/2024) [place] - Occupational Stress Questionnaire Feeling of Stress : Not at all Social Connections: Socially Integrated (04/06/2024) Social Connection and Isolation Panel [NHANES] Frequency of Communication with Friends and Family: More than three times a week Frequency of Social Gatherings with Friends and Family: Three times a week Attends [facility] Services: More than 4 times per year [...] 10 systems is negative Physical Exam Vitals: 01/22/25 1417 Pulse: 92 Temp: 97.1 ???F (36.2 [...] but hard to tell. No surrounding adenopathy. Mild tenderness over sternoclavicular joint but no masses or swelling currently. CV: No clubbing/cyanosis/edema in hands Respiration: Breathing comfortably, no stridor or stertor Neuro: A AND Ox3, Cranial nerves 2-12 intact and symmetric. Normal affect. FNA 03/05/2024: atypia of undetermined significance Assessment/Recommendations: Fely Veliz is a 63 year old female who presents today for: 1. Submandibular gland mass - no changes to the mass. The new mass she noted appears to have just been local irritation and swelling around the clavicular head. Doesn't appear concerning for LAD from the mass. - pt scheduled for surgery on 04/22. PROGRESS NOTES Observed: 04/09/2024 2:15 PM Status: COMPLETED Source: THE [employer] Patient identfied by name an d date of Pharmacy updated Vital signs taken Patent in exam room ready for PAT CALL HISTORY Observed: 04/08/2024 8:50 AM Status: COMPLETED Source: [employer] Telephone History Fely Veliz, [id number] 04/08/2024 63 year old 194 lbs 5' 7 Patient was identified by name and date of . Constance Arellano RN Date of Surgery: 04/22/2024 Surgeon: SATHYA Type of Surgery: EXCISION, GLAND, SUBMANDIBULAR HISTORY OF PRESENT ILLNESS: PAT Telephone History for scheduled surgery with DR. 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 CURRENT MEDICATIONS: Aspirin: No NSAIDS: No Other Antiplatelet Medication: No Anticoagulants: No Steroids: No SGLT-2/GLP-1: No PATIENT MEDICATION INSTRUCTIONS: On the morning of your surgery, please take only the following medications, with a small sip of water: Wellbutrin SR 200 MG SR tablet metFORMIN HCl ER 500 MG/5ML SRER Omeprazole Magnesium (PRILOSEC OTC ORAL) SITagliptin (Januvia) 100 MG tablet tiZANidine (ZANAFLEX) 4 MG tablet triamcinolone 0.1 % cream escitalopram (LEXAPRO) 20 MG tablet lamoTRIgine (LaMICtal) 25 MG tablet fluticasone (FLONASE) 50 mcg/act nasal inhaler LORazepam (ATIVAN) 0.5 MG tablet Do not take any Aspirin 7 days before the surgery. Do not take any Ibuprofen products/NSAIDs 3 days before surgery. May take over the counter Acetaminophen (Tylenol) as needed for pain. Do not take any herbal medications 7 days prior to surgery (Fish Oil, Ginseng, Ginko Biloba) DAY OF SURGERY NOTES: Pt can have WATER only ( no additives) up to 2 hours prior to arrival time The patient is to have nothing to eat or any other liquids at least 8 hours prior to surgery arrival time Need to have independent driver KWAN, will bring their CPAP with them on the morning of surgery. Post-op Nausea and Vomiting: A risk of anesthesia is nausea and/or vomiting (PONV). Certain patients are at higher risk than others. Talk to your anesthesiologist about the plan to minimize this risk. In general, it is best to start with only ice chips or small sips of water, then progress to clear, non-alcoholic fluids. You do not have to eat if you do not feel like it; fluids are the most important in the first 24 hours after surgery. If you start to eat, try bananas, applesauce, plain toast, saltine crackers, or broth; avoid fried or fatty foods. Make sure to eat something about 15 minutes before taking any pain medications. Seek medical attention for any prolonged PONV and signs of dehydration. Constance Arellano RN Time Spent Performing this Telephone History: 30 MIN TELEPHONE ENCOUNTER Observed: 04/03/2024 9:05 AM Status: COMPLETED Source: THE [employer] Spoke with patient, who is s luisa for appointment 04/09/[address] Gonzalez at [facility]. She acknowledges understanding of date, time and location. Ophelia Blue RN TELEPHONE ENCOUNTER Observed: 04/03/2024 8:20 AM Status: COMPLETED Source: THE [employer] Patient called to say that l ast night she found another mass about 3 inches lower on her throat than the previous mass she is having surgery to remove. The patient would like to speak with a nurse or the provider to know what they should do about this new development. Please call the patient back as soon as possible to speak with them. Thank you. PROGRESS NOTES Observed: 03/21/2024 2:56 PM Status: COMPLETED Source: THE [employer] CC: Chief Complaint Patient presents with lump on right side of neck New patient, to establish relationship HPI: Fely Veliz is a 63 year old female referred by family medicine for evaluation of a right-side neck mass that's been present since about a week before Thanks. She doesn't think it's grown. No pain [...] with no obvious adenopathy. Fairly well-circumscribed. Assessment/Recommendations: Fely Veliz is a 63 year old female [...] All medical record entries made by the luane were at my direction and personally dictated by me. I have reviewed and edited the record and confirm that the note above accurately reflects all work, treatment, procedures, and medical decision making performed by me. Dallin Gonzalez MD L Observed: 03/05/2024 12:00 AM Status: F Source: [facility] ----- ------- Specimen: [id number] Received: 03/06/24 Status: YULY Ashby Num: [id number] Spec Type: Cytology Subm Dr: Maria R Garcia MD Tissues: A FNA SLIDES NOPATH (RIGHT SUBMANDIBULAR MASS) Procedures: HE/2, Cyto Int and Re, PAPSTN/6 ----- ------- Age/ Patient Sex Location Account Attending Physician ----- ------- Fely Veliz I 63/F LABELL [id number] Maria R Garcia MD ----- ------- SPEC NUM: [id number] RECD: 03/06/24 STATUS: YULY JESUSITA NUM: [id number] JOSE: 03/05/24 [facility] DR: Maria R Garcia MD ENTERED: 03/06/[address] [facility] [address]: Ryan Moreira MD SPEC TYPE: Cytology DEPT: [facility] ENTERED BY: [id number] RECV BY: [id number] ORDERED: HE/2, Cyto Int and Re, PAPSTN/6 [...] undetermined significance, or the c ategory 3 Mullens system, requiring clinical correlation, or removal of the lesion for further assessment Clinical Information Right submandibular mass Gross Description Received is 30 ml clear colorless fixed fluid for cytology said to have been obtained as Right Submandibular Mass. Cell block preparations are prepared for microscopic examination. ----- ------- Specimen: [id number] Received: 03/06/24 Status: YULY Jesusita Num: [id number] Spec Type: Cytology Subm Dr: Maria R Garcia MD Tissues: A FNA SLIDES NOPATH (RIGHT SUBMANDIBULAR MASS) Procedures: HE/2, Cyto Int and Re, PAPSTN/6 ----- ------- Patient: KerenFely Martin [id number] (Continued) ----- ------- Specimen: [id number] Received: 03/06/24 (Continued) Gross Description (Continued) Signed (signature on file) Zeina Jeffers MD 03/12/24 143 ----- ------- Specimen: [id number] Received: 03/06/24 Status: YULY Ashby Num: [id number] Spec Type: Cytology Subm Dr: Maria R Garcia MD Tissues: A FNA SLIDES NOPATH (RIGHT SUBMANDIBULAR MASS) Procedures: HE/2, Cyto Int and Re, PAPSTN/6 ----- ------- Patient: Fely Veliz I [id number] (Continued) ----- ------- Specimen: [id number] Received: 03/06/24 (Continued) Gross Description (Continued) Also received are 6 spray fixed smeared slides for pap for microscopic examination. (CC/vt) Microscopic Description Microscopic examinations are performed supporting the above interpretation CPT Codes 09941 ----- ------- ----- ------- Specimen: [id number] Received: 03/06/24 Status: YULY Ashby Num: [id number] Spec Type: Cytology Subm Dr: Maria R Garcia MD Tissues: A FNA SLIDES NOPATH (RIGHT SUBMANDIBULAR MASS) Procedures: HE/2, Cyto Int and Re, PAPSTN/6 ----- ------- Patient: Fely Veliz I [id number] (Continued) ----- ------- Signed (signature on file) Chin-Jules Jeffers MD 03/12/24 1432 ALLERGIES DATE TYPE / CODE NAME / CODE REACTION SEVERITY SOURCE 12/01/2024 Drug Allergy/4160 48151(SNOMED CT) buspirone/D215408118 (RXNORM) Hives Unknown [facility] 12/01/2024 Drug Allergy/4160 47066(SNOMED CT) levofloxacin/L621589 299(RXNORM) Hives Mild (Qualifier Value) [facility] 04/08/2024 DRUG/4250855 03(SNOMED CT) OTHER (REVIEW COMMENTS!) [facility] 08/28/2023 DRUG INGREDI/4195 30648(SNOMED CT) BUSPIRONE [facility] 08/26/2013 DRUG INGREDI/4195 74904(SNOMED CT) LEVOFLOXACIN ITCHING Moderate (Severity Modifier) (Qualifier Value) [facility] ENCOUNTERS ADMIT/DISCHARGE ACCOUNT NUMBER ADMITTING ENCOUNTER CLASS LOCATION SOURCE 12/01/2024 [id number] [facility] 08/19/2024/08/20/19 [id number] [facility] Lin [facility] 05/09/2024 [id number] [facility] 05/02/2024 [id number] [facility] 04/30/2024/04/30/19 25 [id number] [facility] 04/24/2024/04/24/19 25 [id number] [facility] 04/22/2024/04/22/19 25 [id number] DALLIN GONZALEZ [facility] Main ORBed: PeriOp [facility] 04/10/2024/04/10/19 25 [id number] [facility] 04/10/2024 [id number] [facility] 04/10/2024 [id number] [facility] 04/10/2024 [id number] [facility] 04/10/2024 [id number] [facility] 04/09/2024/04/10/19 25 [id number] [facility] 04/08/2024 [id number] [facility] 03/21/2024/03/21/19 25 [id number] [facility] 03/21/2024/03/21/19 25 [id number] Ambulatory Building:[address] [facility] 03/05/2024/03/05/20 24 [id number] Maria R Garcia [facility] PAYERS ENCOUNTER GUARANTOR PAYER SUBSCRIBER SOURCE 12/01/2024 [place] I [id number] [place] [address]Ypl: (HP) Primary Insurance:MedicarePolicy Number: [id number] Date:2024-05-12 Galindo I AltDOB: [id number] [address] [place] [address]Fjb: (HP) [facility] 12/01/2024 Secondary Insurance:Aetna SSIPolicy Number: [id number] Date:2530-59-98QU [address] [place] [address]EQ: Galindo I AltDOB: [id number] [address] [place], [place] [address]Tel: () [facility] 12/01/2024 Tertiary Insuran ce:Self PayPolicy Number: Effective Date:2024-05-28 [facility]/2024 Galindo I [id number] [place], [place] [address]Tel: () Primary Insurance:MedicarePolicy Number: [id number] Date:2024-08-19 Galindo I AltDOB: [id number] [place] [id number]: () [facility] 08/19/2024 Secondary Insurance:Aetna SSIPolicy Number: [id number] Date:2760-16-12MJ [address] [place] [address]NA: Galindo I AltDOB: [id number] [place] [id number]: () [facility] 08/19/2024 Tertiary Insuran ce:Self PayPolicy Number: Effective Date:2024-08-19 [facility] 05/09/2024 GALINDO I ALTDOB: [address] [place] [address]Yvl: ~(4 19 (HP) Primary Insurance:MCGHEE MARKETPLACEPolicy Number: [id number] Date:2024-03-19 GALINDO I ALTDOB: [id number] [address] [address]Zhb: (HP) [facility] 05/02/2024 GALINDO I ALTDOB: [address] [address]Zgu: ~(4 19 (HP) Primary Insurance:MCGHEE MARKETPLACEPolicy Number: [id number] Date:2024-03-19 GALINDO I ALTDOB: [id number] [address] [address]Poz: (HP) [facility] 04/30/2024 GALINDO I ALTDOB: [address] [address]Llp: ~(4 19 (HP) Primary Insurance:MCGHEE MARKETFoodilyPolicy Number: [id number] Date:2024-03-19 GALINDO I ALTDOB: [id number] [address] [address]Xoh: (HP) [facility] 04/24/2024 GALINDO I ALTDOB: [address] [address]Qze: ~(4 19 (HP) Primary Insurance:MCGHEE MARKETPLACEPolicy Number: [id number] Date:2024-03-19 GALINDO I ALTDOB: [id number] [address] [address]Yoz: (HP) [facility] 04/22/2024 GALINDO I ALTDOB: [address] [address]Ooj: ~(4 19 (HP) Primary Insurance:MCGHEE MARKETPLACEPolicy Number: [id number] Date:2024-03-19 GALINDO I ALTDOB: [id number] [place] [address] [place] [address]Syq: (HP) [facility] 04/10/2024 GALINDO I ALTDOB: [place] [address]Rvj: ~(4 19 (HP) Primary Insurance:RackWarePolicy Number: [id number] Date:2024-03-19 GALINDO I ALTDOB: [id number] [place] [address] [place] [address]Gvp: (HP) [facility] 04/10/2024 GALINDO I ALTDOB: [place] [address] [place] [address]Jzl: ~(4 19 (HP) Primary Insurance:RackWarePolThinker Thingy Number: [id number] Date:2024-03-19 GALINDO I ALTDOB: [id number] [address] [place] [address]Pfx: (HP) [facility] 04/10/2024 GALINDO I ALTDOB: [place] [address] [place] [address]Zfb: ~(4 19 (HP) Primary Insurance:RackWarePolicy Number: [id number] Date:2024-03-19 GALINDO I ALTDOB: [id number] [place] [address] [place] [address]Fbn: (HP) [facility] 04/10/2024 GALINDO I ALTDOB: [address] [address]Aay: ~(4 19 (HP) Primary Insurance:MCGHEE CoppertinoPolicy Number: [id number] Date:2024-03-19 GALINDO I ALTDOB: [id number] [place] [address] [place] [address]Jev: (HP) [facility] 04/10/2024 GALINDO I ALTDOB: [address] [address]Hkv: ~(4 19 (HP) Primary Insurance:MCGHEE PostlingPLACEPolicy Number: [id number] Date:2024-03-19 GALINDO I ALTDOB: [id number] [address] [address]Mlj: (HP) [facility] 04/09/2024 GALINDO I ALTDOB: [address] [address]Cfn: ~(4 19 (HP) Primary Insurance:MCGHEE PostlingPLACEPolicy Number: [id number] Date:2024-03-19 GALINDO I ALTDOB: [id number] [address] [address]Vvc: (HP) [facility] 04/08/2024 GALINDO I ALTDOB: [address] [address]Erx: ~(4 19 (HP) Primary Insurance:MCGHEE PostlingPLACEPolicy Number: [id number] Date:2024-03-19 GALINDO I ALTDOB: [id number] [address] [address]Bbo: (HP) [facility] 03/21/2024 GALINDO I ALTDOB: [address] [address]Sjz: ~(4 19 (HP) Primary Insurance:MCGHEE MARKETPLACEPolicy Number: [id number] Date:2024-03-19 GALINDO I ALTDOB: [id number] [address] [address]Zlh: (HP) [facility] 03/21/2024 GALINDO I ALTDOB: [address] [address]Cyv: (HP) Primary Insurance:MCGHEE MEDICAIDPolicy Number: [id number] Date:2023-08-18 GALINDO I ALTDOB: [id number] [address] [place] [address] [facility] 03/05/2024 Primary Insuranc e:Self PayPolicy Number: Effective Date:2024-03-05 NOT GIVENUNK [facility]
[2024-12-13 11:24] VITALS: BP 166/61; PULSE 93; TEMP 36.9; O2SAT 96; BMI 33.3
--- NOTE | 2024-12-13 11:30 | XR_ITS ---
[facility] [place] [id number] Patient Name: JOSIE CABRERA MRN: [id number] date: 1960 Sex: F Assigned Patient Location: ED.MAIN Current Patient Location: ED.MAIN Accession/Order Number: [id number] Exam Date: 12/13/2024 11:45 Report Date: 12/13/2024 12:09 At the request of: JOSE GIBBONS MD Procedure: XR knee LT 3V XR knee LT 3V 12/13/2024 11:57 AM SIGNS AND SYMPTOMS: ^fall PROTOCOL: 3 views of the left knee COMPARISON: None FINDINGS: There is no acute displaced fracture. This mild narrowing of the medial weightbearing joint space spurring of the medial femoral condyle. There is a large amount of soft tissue swelling in the lower thigh and prepatellar region suggesting the presence of a hematoma. XR/XR knee LT 3V IMPRESSION: There is a large amount of soft tissue swelling in the lower thigh and prepatellar region suggesting the presence of a hematoma. No fracture. Impression dictated by: Channing Peña M.D. 12/13/2024 12:09 PM Dictation Location: [place] [address] Electronically authenticated by: [id number] Y Date: 12/13/2024 12:09
--- NOTE | 2024-12-13 11:35 | ED_ITS ---
HPI HPI - General Adult General Chief complaint: Extremity Injury, Lower Stated complaint: L KNEE PAIN/SWELLING Time Seen by Provider: 12/13/24 11:26 Source: patient Mode of arrival: Wheelchair History of Present Illness HPI narrative: 64-year-old female presented to the emergency department for left knee pain. She fell about 2 weeks ago. Today she was getting out of a car and felt a popping sensation and has pain at the superior and medial aspect of the left knee. Became swollen today as well. No pain in the ankle or hip. It hurts to walk on it. Related Data Allergies Allergy/AdvReac Type Severity Reaction Status Date / Time Unable to Assess Allergy Verified 12/13/24 11:29 Review of Systems ROS Narrative A ten point review of systems is negative except as noted above. [facility] Surgical History (Updated 03/05/24 @ 13:19 by Tam Zamarripa) Status post fine needle biopsy ?Z98.890 - Other specified postprocedural states (ICD-10) Social History Little interest or pleasure in doing things: not at all Feeling down, depressed, or hopeless: not at all Exam Narrative Exam Narrative: Nurses note and vital signs reviewed and patient is not hypoxic. General:The patient appears well and in no apparent distress.Patient is resting comfortably on cart. Skin:Warm, dry, no pallor noted.There is no rash noted. Head:Normocephalic, atraumatic Eye: Normal conjunctiva, no drainage Ears, Nose, Mouth, and Throat: oral mucosa is moist. Nares patent. Cardiovascular:Regular Rate and Rhythm Respiratory:Patient is in no distress, no accessory muscle use, lungs are clear to auscultation, no wheezing, rales or rhonchi Back:non-tender GI: Soft and nontender Musculoskeletal: She has athletic tape on her left knee. There is swelling pres ent. The knee joint is stable. Neurological:A&O, normal speech Psychiatric:Cooperative Constitutional Vital Signs, click to edit/add: Last Vital Signs Temp 98.4 F 12/13/24 11:24 Pulse 93 H 12/13/24 11:24 BP 166/61 H 12/13/24 11:24 Pulse Ox 96 12/13/24 11:24 O2 Del Method Room Air 12/13/24 11:24 Course Vital Signs Vital signs: Vital Signs Temperature 98.4 F 12/13/24 11:24 Pulse Rate 93 H 12/13/24 11:24 Blood Pressure 166/61 H 12/13/24 11:24 Pulse Oximetry 96 12/13/24 11:24 Oxygen Delivery Method Room Air 12/13/24 11:24 Temperature 98.4 F 12/13/24 11:24 Pulse Rate 93 H 12/13/24 11:24 Blood Pressure 166/61 H 12/13/24 11:24 Pulse Oximetry 96 12/13/24 11:24 Oxygen Delivery Method Room Air 12/13/24 11:24 Medical Decision Making MDM Narrative Medical decision making narrative: X-ray per radiologist shows hematoma. Taqueria wrap applied and application checked by me and found to be appropriate, she is neurovascularly intact. She has a walker at home that she can utilize. She has a preferred orthopedist with whom she will follow-up. She was offered pain medication but prefers to take Tylenol. Treatment diagnosis and follow-up were discussed with the patient. Imaging Data Left knee x-ray: Radiologist's impression: ITS Impressions Knee X-Ray 12/13/24 11:30 IMPRESSION: There is a large amount of soft tissue swelling in the lower thigh and prepatellar region suggesting the presence of a hematoma. No fracture. Impression dictated by: Channing Peña M.D. 12/13/2024 12:09 PM Dictation Location: [place] [address] Electronically authenticated by: [id number] Y Date: 12/13/2024 12:09 Discharge Plan Discharge Chief Complaint: Extremity Injury, Lower Clinical Impression: Contusion of left knee, Traumatic hematoma of left knee Patient Disposition: Home, Self-Care Time of Disposition Decision: 12:31 Condition: Good Mode of Transportation: Private Vehicle Print Language: Wolof Instructions: Contusion in Adults (ED) Referrals: Shadi Garcia MD [Primary Care Provider, Family Practice] - 1 week Kemal Pulido MD [Physician, Orthopedics]
== END 2024-12-13 12:45 | disposition home or self-care (01) ==
PROVIDERS: Emergency Provider Emergency Medicine; PCP Family Medicine
DX: S80.02XA Contusion of left knee, initial encounter (principal); W19.XXXA Unspecified fall, initial encounter
CPT/HCPCS: 73562; 99283